=== PATIENT | male | born 1980 | race Caucasian/White ===

== ENCOUNTER 2016-12-04 07:29 | Observation (INO) | payer MEDICARE, OTHER ==
[2016-12-04] VITALS (7 sets, daily range): BP systolic 126–175; BP diastolic 74–94
[~2016-12-04] VITALS: Ht 185.4 cm; Wt 109.5 kg
[~2016-12-04 07:29] MED LIST: ASPI325T8 PO; ATOR20TA PO; GLIM4TAB PO; INSU100I17 SQ; INSU100I27 SQ; IV NORMAL SALINE 1000ML BAG 1,000 ML IV SCH; LIDOCAINE 1% 1 ML SYRINGE. ID PRN; LISI-334 PO; METF-620 PO; METO10TA81 PO; MORPHINE SULFATE 2 MG/ML DISP.SYRIN. IV PRN; ONDANSETRON PF 4 MG/2 ML VIAL. IV PRN; PROCHLORPERAZINE 10 MG/2 ML VIAL. IV PRN; RANI150T2 PO; fentaNYL PF VIAL 100 MCG/2 ML VIAL IV PRN
[2016-12-04] MEDS ORDERED: HEPARIN SODIUM 5,000 UNIT in IV NORMAL SALINE 500ML BAG 500 ML IRR ONE ×2 (08:00→15:00)
[2016-12-04] MEDS ORDERED: SURGICEL FIBRILLAR 1X2 EACH. ONE ×3 (08:04→14:38)
[2016-12-04] MEDS ORDERED: PROTAMINE 50 MG/5 ML VIAL. IV ONE ×2 (08:04→14:38)
[2016-12-04] MEDS ORDERED: POVIDONE-IODINE 10% TOPICAL OINTMENT 28GM TUBE. TP ONE (08:04)
[2016-12-04] MEDS ORDERED: THROMBIN TOPICAL 5,000 UNIT VIAL. ONE ×2 (08:04→14:37)
[2016-12-04] MEDS ORDERED: PAPAVERINE 60 MG/2 ML VIAL FOR OR ONLY. ONE ×2 (08:04→14:37)
[2016-12-04] MEDS ORDERED: LIDOCAINE 1% 20 ML VIAL. ONE ×2 (08:04→14:37)
[2016-12-04] MEDS ORDERED: FAMOTIDINE 20 MG/2 ML VIAL ONE (08:33)
[2016-12-04] MEDS ORDERED: LIDOCAINE 2% PF Vial for OR 5 ML VIAL. ONE ×2 (08:33→16:27)
[2016-12-04] MEDS ORDERED: PROPOFOL 20 ML IV ONE ×2 (08:33→16:26)
[2016-12-04] MEDS ORDERED: ONDANSETRON PF 4 MG/2 ML VIAL. ONE ×2 (08:33→16:27)
[2016-12-04] MEDS ORDERED: MIDAZOLAM HCL/PF 2 MG/2 ML VIAL. ONE ×3 (08:35→15:42)
[2016-12-04] MEDS ORDERED: fentaNYL PF VIAL 100 MCG/2 ML VIAL ONE ×2 (08:35→15:43)
[2016-12-04] MEDS ORDERED: CITRIC ACID/SODIUM CITRATE 30 ML SOLUTION. PO ONE (08:45)
[2016-12-04 09:05] LABS: CALCIUM 8.4 mg/dL (8.5-10.1); CREATININE 8.9 mg/dL (0.7-1.3); GFR 6.7; POTASSIUM 4.1 mmol/L (3.5-5.1)
[2016-12-04] MEDS ORDERED: PROPOFOL 50 ML IV ONE (09:13)
[2016-12-04 09:16] LABS: BASO # 0.1 x10^3/uL (0.0-0.2); BASO % 1 % (0-3); EOS % 4 % (0-3); HEMATOCRIT 29.1 % (39.0-53.0); LYMPH # 1.3 x10^3/uL (1.0-4.8); LYMPH % 17 % (24-48); MEAN CORPUSCULAR HEMOGLOBIN 28 pg (25-35); MEAN CORPUSCULAR HGB CONC 34 g/dL (31-37); MEAN CORPUSCULAR VOLUME 81 fL (79-100); MONO % 7 % (0-9); NEUT % 71 % (31-73); PLATELET COUNT 232 x10^3/uL (140-400); RED BLOOD COUNT 3.59 x10^6/uL (4.30-5.70); RED CELL DISTRIBUTION WIDTH 15.3 % (11.5-14.5); WHITE BLOOD COUNT 7.7 x10^3/uL (4.0-11.0)
[2016-12-04 09:24] LABS: INR 0.9 (0.8-1.1); PROTHROMBIN TIME PATIENT 11.9 SEC (11.7-14.0)
[2016-12-04] MEDS ORDERED: HEPARIN for IV BOLUS 10,000 UNIT/10 ML VIAL. ONE (09:57)
[2016-12-04] MEDS: fentaNYL PF VIAL 100 MCG/2 ML VIAL IV PRN ×6 (11:13→17:05)
--- NOTE | 2016-12-04 11:15 | PDOC4 ---
Operative Note Operative Note Op note dictated Dx: ESRD DM, type I Op: left brachiocephalic av fistula Surg: Elvia local mac to rr in [facility] cond. AYESHA DOBSON II, MD Dec 04, 2016 11:15
[2016-12-04] MEDS ORDERED: HYDR-971 PO (12:12)
--- NOTE | 2016-12-04 12:14 | EKG ---
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
[2016-12-04] MEDS ORDERED: HYDROcodone/APAP 5/325MG 1 TAB TABLET PO ONE (12:15)
[2016-12-04] MEDS ORDERED: SEVOFLURANE 61 TO 120 MINUTES. IH ONE (16:46)
--- NOTE | 2016-12-04 17:05 | PDOC4 ---
Operative Note Operative Note December 04, 2016 Preoperative diagnosis: End-stage renal disease on hemodialysis Postoperative diagnosis: Same Procedure: Reoperative exploration of the left upper extremity for hemorrhage following AV fistula creation with ligation of large bleeding side branch Surgeon: Shaneka Sweet, AGA LOVETT RPVI Specimens: None Complications: None Preoperative indications: Patient is a pleasant 36-year-old male who underwent left upper extremity AV fistula creation by my partner. [place] home [place] [facility] [place]. Patient was transferred back for operative exploration. I met the patient in the preoperative area and obtained a surgical consent for the procedure. He understood all risks benefits and alternatives of procedure prior to proceeding. Operative procedure: Patient was brought to the operative suite placed supine position after establishing adequate sedation patient's left upper extremity was prepped and draped in sterile fashion. Next a timeout procedure was performed. It was confirmed that the patient did receive appropriate perioperative antibiotics and that the correct operative site was marked and draped. Next the suture was removed from his existing incision and the subcutaneous space was opened overlying the fistula. There was profuse pulsatile bleeding upon entry into the space. I was able to gain control of the arterial inflow. Next I identified a venous tributary side branch from the harvested cephalic vein which was bleeding profusely. The silk tie that was in place was seen in the surgical field and had completely slipped off of the vessel. Using a 6-0 Prolene suture the venous tributary was ligated in a running baseball stitch fashion. Care was taken not to narrow the venous conduit. Next I inspected the anastomosis after restoring blood flow. The anastomosis was intact with no evidence of bleeding from the arterial source. The hematoma was evacuated from this space once the bleeding was controlled. Next the wound was copiously irrigated with antibiotic impregnated solution and suctioned dry. I inspected the surgical wound at this time for hemostasis and we did confirm complete hemostasis of the surgical field. Next the subcutaneous tissue was closed using interrupted 3-0 Vicryl suture followed by 4-0 Monocryl in a subcuticular fashion. Dermabond was next applied to the skin incision and a sterile dressing was placed. The patient had a palpable thrill throughout the cephalic vein in the upper arm, and a palpable pulse at the level of the wrist in the radial artery. The patient tolerated procedure well and was transferred to the postanesthesia care unit in stable condition. Shaneka Sweet DO, FACS, RPVI [employer] Officer of Vascular [employer] [facility] SHANEKA SWEET DO Dec 04, 2016 17:05
[2016-12-04] MEDS: HYDROmorphone 2 MG/ML VIAL IV PRN ×2 (18:04→18:28)
--- NOTE | 2016-12-04 19:23 | PDOC1 ---
History and Physical Identification/Chief Complaint Chief Complaint 12/04/2016 Chief complaint: Fistula hemorrhage/bleeding Problems: History of Present Illness History of Present Illness A 36-year-old male who underwent left upper extremity AV fistula creation by vascular surgery. Patient was discharged home and then presented to [facility] [place], [place] with bleeding from his left upper extremity. Patient was transferred back for operative exploration.Reoperative exploration of the left upper extremity for hemorrhage following AV fistula creation with ligation of large bleeding side branch. Post surgery I was asked to admit the patient for observation overnight. Patient denies any symptoms however he does not of vomiting denies any fever or chills. Past Medical History Past Medical History Hypertension diabetes and end-stage renal disease Cardiovascular: HTN Past Surgical History Past Surgical History Fistula repair Family History Family History Hypertension Social History Smoke: No ALCOHOL: none Drugs: None Current Medications Current Medications Current Medications Medications (Trade) Dose Ordered Sig/Damien Start Time Stop Time Status Last Admin Dose Admin Acetaminophen/ Hydrocodone Bitart (Lortab 5/325) 2 tab 1X ONCE 12/04/16 12:15 12/04/16 12:16 DC 12/04/16 12:21 2 TAB Cefazolin Sodium 1 gm/Sodium Chloride 500 ml @ 500 mls/hr 1X PERIOP ONCE 12/04/16 15:00 12/04/16 15:59 DC 12/04/16 15:59 Cefazolin Sodium/ Dextrose 50 ml @ 100 mls/hr 1X PREOP PRN 12/04/16 15:33 12/05/16 15:32 Cellulose 1 each STK-MED ONCE 12/04/16 14:38 12/04/16 14:39 DC Citric Acid/ Sodium Citrate (Bicitra) 30 ml 1X ONCE 12/04/16 08:45 12/04/16 08:46 DC 12/04/16 08:54 30 ML Famotidine (Pepcid) 20 mg STK-MED ONCE 12/04/16 08:33 12/04/16 08:34 DC Fentanyl Citrate (Fentanyl 2ml Vial) 100 mcg STK-MED ONCE 12/04/16 15:43 12/04/16 15:44 DC Heparin Sodium (Porcine) (Heparin Sodium) 10,000 unit STK-MED ONCE 12/04/16 09:57 12/04/16 09:58 DC Heparin Sodium (Porcine) 5000 unit/Sodium Chloride 505 ml @ 505 mls/hr 1X PERIOP ONCE 12/04/16 15:00 12/04/16 15:59 DC 12/04/16 15:59 Hydromorphone HCl (Dilaudid) 0.5 mg PRN Q10MIN PRN 12/04/16 07:00 12/05/16 06:59 12/04/16 18:28 0.5 MG Lidocaine HCl (Lidocaine Pf 2% Vial) 5 ml STK-MED ONCE 12/04/16 16:27 12/04/16 16:28 DC Midazolam HCl (Versed) 2 mg STK-MED ONCE 12/04/16 15:42 12/04/16 15:43 DC Morphine Sulfate 1 mg PRN Q10MIN PRN 12/04/16 07:00 12/05/16 06:59 Ondansetron HCl (Zofran) 4 mg STK-MED ONCE 12/04/16 16:27 12/04/16 16:28 DC Papaverine HCl 60 mg STK-MED ONCE 12/04/16 14:37 12/04/16 14:38 DC Povidone Iodine ( Betadine Oint) 28 daljit STK-MED ONCE 12/04/16 08:04 12/04/16 08:05 DC Prochlorperazine Edisylate (Compazine) 5 mg PACU PRN PRN 12/04/16 07:00 12/05/16 06:59 12/04/16 17:15 5 MG Propofol 20 ml @ As Directed STK-MED ONCE 12/04/16 16:26 12/04/16 16:27 DC Protamine Sulfate 50 mg STK-MED ONCE 12/04/16 14:38 12/04/16 14:39 DC Sevoflurane (Ultane) 60 ml STK-MED ONCE 12/04/16 16:46 12/04/16 16:47 DC Sodium Chloride 1,000 ml @ 0 mls/hr Q0M 12/04/16 07:00 12/04/16 08:55 30 MLS/HR Thrombin 5,000 unit STK-MED ONCE 12/04/16 14:37 12/04/16 14:38 DC Allergies Allergies Allergies Coded Allergies Type Severity Reaction Last Updated Verified No Known Drug Allergies 02/01/16 No ROS Review of System CONSTITUTIONAL: No fever or chills EYES: No recent changes SKIN: No rash or itching CARDIOVASCULAR: No chest pain, syncope, palpitations, or edema RESPIRATORY: No SOB or cough GASTROINTESTINAL: nausea, vomiting or NO abdominal pain NEUROLOGICAL: No headaches or weakness ENDOCRINE: No cold or heat intolerance GENITOURINARY: No urgency or frequency of urination MUSCULOSKELETAL: No back pain or joint pain LYMPHATICS: No enlarged lymph nodes PSYCHIATRIC: No anxiety or depression Physical Exam Physical Exam GEN.: No apparent distress. Alert and oriented. HEENT: Head is normocephalic, atraumatic NECK: Supple. LUNGS: Clear to auscultation. HEART: RRR, S1, S2 present. Peripheral pulses intact ABDOMEN: Soft, nontender. Positive bowel sounds. EXTREMITIES: Without any cyanosis. NEUROLOGIC: Normal speech, normal tone PSYCHIATRIC: Normal affect, normal mood. SKIN: Left upper extremity bandages intact no bleeding seen Vitals Vitals Vital Signs Date Time Temp Pulse Resp B/P (MAP) Pulse Ox O2 Delivery O2 Flow Rate FiO2 12/04/16 18:28 15 98 Room Air 1.0 12/04/16 17:33 97.5 69 168/87 97.5 Labs Labs Laboratory Tests Test 12/04/16 08:25 12/04/16 12:03 12/04/16 15:26 12/04/16 16:52 White Blood Count 7.7 x10^3/uL (4.0-11.0) Red Blood Count 3.59 x10^6/uL (4.30-5.70) Hemoglobin 10.0 g/dL (13.0-17.5) Hematocrit 29.1 % (39.0-53.0) Mean Corpuscular Volume 81 fL (79-100) Mean Corpuscular Hemoglobin 28 pg (25-35) Mean Corpuscular Hemoglobin Concent 34 g/dL (31-37) Red Cell Distribution Width 15.3 % (11.5-14.5) Platelet Count 232 x10^3/uL (140-400) Neutrophils (%) (Auto) 71 % (31-73) Lymphocytes (%) (Auto) 17 % (24-48) Monocytes (%) (Auto) 7 % (0-9) Eosinophils (%) (Auto) 4 % (0-3) Basophils (%) (Auto) 1 % (0-3) Neutrophils # (Auto) 5.4 x10^3uL (1.8-7.7) Lymphocytes # (Auto) 1.3 x10^3/uL (1.0-4.8) Monocytes # (Auto) 0.6 x10^3/uL (0.0-1.1) Eosinophils # (Auto) 0.3 x10^3/uL (0.0-0.7) Basophils # (Auto) 0.1 x10^3/uL (0.0-0.2) Prothrombin Time 11.9 SEC (11.7-14.0) Prothromb Time International Ratio 0.9 (0.8-1.1) Activated Partial Thromboplast Time 28 SEC (24-38) Sodium Level 138 mmol/L (136-145) Potassium Level 4.1 mmol/L (3.5-5.1) Chloride Level 98 mmol/L (98-107) Carbon Dioxide Level 28 mmol/L (21-32) Anion Gap 12 (6-14) Blood Urea Nitrogen 52 mg/dL (8-26) Creatinine 8.9 mg/dL (0.7-1.3) Estimated GFR (Cockcroft-Gault) 6.7 Glucose Level 168 mg/dL (70-99) Calcium Level 8.4 mg/dL (8.5-10.1) Glucose (Fingerstick) 119 mg/dL (70-99) 151 mg/dL (70-99) 139 mg/dL (70-99) Laboratory Tests Test 12/04/16 08:25 12/04/16 12:03 12/04/16 15:26 12/04/16 16:52 White Blood Count 7.7 x10^3/uL (4.0-11.0) Red Blood Count 3.59 x10^6/uL (4.30-5.70) Hemoglobin 10.0 g/dL (13.0-17.5) Hematocrit 29.1 % (39.0-53.0) Mean Corpuscular Volume 81 fL (79-100) Mean Corpuscular Hemoglobin 28 pg (25-35) Mean Corpuscular Hemoglobin Concent 34 g/dL (31-37) Red Cell Distribution Width 15.3 % (11.5-14.5) Platelet Count 232 x10^3/uL (140-400) Neutrophils (%) (Auto) 71 % (31-73) Lymphocytes (%) (Auto) 17 % (24-48) Monocytes (%) (Auto) 7 % (0-9) Eosinophils (%) (Auto) 4 % (0-3) Basophils (%) (Auto) 1 % (0-3) Neutrophils # (Auto) 5.4 x10^3uL (1.8-7.7) Lymphocytes # (Auto) 1.3 x10^3/uL (1.0-4.8) Monocytes # (Auto) 0.6 x10^3/uL (0.0-1.1) Eosinophils # (Auto) 0.3 x10^3/uL (0.0-0.7) Basophils # (Auto) 0.1 x10^3/uL (0.0-0.2) Prothrombin Time 11.9 SEC (11.7-14.0) Prothromb Time International Ratio 0.9 (0.8-1.1) Activated Partial Thromboplast Time 28 SEC (24-38) Sodium Level 138 mmol/L (136-145) Potassium Level 4.1 mmol/L (3.5-5.1) Chloride Level 98 mmol/L (98-107) Carbon Dioxide Level 28 mmol/L (21-32) Anion Gap 12 (6-14) Blood Urea Nitrogen 52 mg/dL (8-26) Creatinine 8.9 mg/dL (0.7-1.3) Estimated GFR (Cockcroft-Gault) 6.7 Glucose Level 168 mg/dL (70-99) Calcium Level 8.4 mg/dL (8.5-10.1) Glucose (Fingerstick) 119 mg/dL (70-99) 151 mg/dL (70-99) 139 mg/dL (70-99) VTE Prophylaxis Ordered VTE Prophylaxis Devices: Yes VTE Pharmacological Prophylaxi: Contraindicated Assessment/Plan Assessment/Plan Reoperative exploration of the left upper extremity for hemorrhage following AV fistula creation with ligation of large bleeding side branch End-stage renal disease on hemodialysis diabetes mellitus on insulin dependency Nausea and vomiting unclear etiology Plan Case discussed with vascular surgery requested me to admit the patient for observation, will continue to monitor his hemoglobin and vitals. Consult nephrology for hemodialysis patient is scheduled for him and assist tomorrow. Hold nighttime Levemir and continue meal dose insulin with sliding scale insulin. Next IV Zofran for nausea and vomiting. Mild hyperhydration monitor CBC and BMP. Labs and old records reviewed. PORSCHE CARBALLO MD Dec 04, 2016 19:23
[2016-12-04] MEDS ORDERED: ALBUTEROL SULFATE 2.5 MG/3 ML NEBU. NEB PRN (19:30)
[2016-12-04] MEDS ORDERED: ACETAMINOPHEN 325 MG TABLET. PO PRN (19:30)
[2016-12-04] MEDS ORDERED: HYDROcodone/APAP 5/325MG 1 TAB TABLET PO PRN (19:30)
[2016-12-04] MEDS ORDERED: ONDANSETRON PF 4 MG/2 ML VIAL. IV PRN (19:30)
[2016-12-04] MEDS: HYDROcodone/APAP 5/325MG 1 TAB TABLET PO SCH (20:54)
[2016-12-04] MEDS: hydrALAZINE 20 MG/ML VIAL. IVP PRN (20:57)
[2016-12-04] MEDS ORDERED: ATORVASTATIN CALCIUM 20 MG TABLET PO SCH (21:00)
[2016-12-04] MEDS ORDERED: fentaNYL PF VIAL 100 MCG/2 ML VIAL IV ONE (21:30)
[2016-12-05] MEDS: HYDROcodone/APAP 5/325MG 1 TAB TABLET PO SCH ×5 (00:09→16:35)
[2016-12-05] MEDS: hydrALAZINE 20 MG/ML VIAL. IVP PRN (01:43)
[2016-12-05 01:48] VITALS: BP 200/110
[2016-12-05 01:49] VITALS: BP_SYST 159; BP_SYST 177; BP_DIAS 87; BP_DIAS 90
[2016-12-05 03:01] VITALS: BP 155/74
[2016-12-05 05:03] LABS: BASO % 1 % (0-3); EOS % 4 % (0-3); HEMATOCRIT 21.6 % (39.0-53.0); HEMOGLOBIN 7.4 g/dL (13.0-17.5); LYMPH # 1.3 x10^3/uL (1.0-4.8); LYMPH % 16 % (24-48); MEAN CORPUSCULAR HEMOGLOBIN 28 pg (25-35); MEAN CORPUSCULAR HGB CONC 34 g/dL (31-37); MEAN CORPUSCULAR VOLUME 82 fL (79-100); MONO % 6 % (0-9); NEUT % 73 % (31-73); PLATELET COUNT 216 x10^3/uL (140-400); RED BLOOD COUNT 2.63 x10^6/uL (4.30-5.70); RED CELL DISTRIBUTION WIDTH 15.5 % (11.5-14.5); WHITE BLOOD COUNT 7.9 x10^3/uL (4.0-11.0)
[2016-12-05 05:19] LABS: CALCIUM 7.5 mg/dL (8.5-10.1); CREATININE 9.9 mg/dL (0.7-1.3); POTASSIUM 4.7 mmol/L (3.5-5.1)
[2016-12-05 07:00] VITALS: BP 138/72
[2016-12-05] MEDS: INSULIN ASPART 300 UNITS/3 ML INSULN.PEN SQ SCH ×3 (07:30→16:48)
[2016-12-05] MEDS ORDERED: POLYETHYLENE GLYCOL 3350 17 GM PACKET. PO PRN (08:00)
[2016-12-05] MEDS ORDERED: LISINOPRIL 20 MG TABLET PO SCH (09:00)
[2016-12-05] MEDS ORDERED: ASPIRIN 325 MG TABLET PO SCH (09:00)
[2016-12-05 11:00] VITALS: BP 142/80
--- NOTE | 2016-12-05 11:48 | PDOC ---
PROGRESS NOTES Chief Complaint Chief Complaint 1. Bleeding/hemorrhage at new AV fistula site 2. HTN 3. ESRD 4. Anemia 5. Hyperglycemia 6. Hypocalcemia History of Present Illness History of Present Illness pt is lying comfortably in bed this morning, he has TTP in R arm which continues to be swollen postop, he denies any complaints and states his pain is well managed, he would like to start miralax for his constipation Vitals Vitals Vital Signs Date Time Temp Pulse Resp B/P (MAP) Pulse Ox O2 Delivery O2 Flow Rate FiO2 12/05/16 11:00 98.4 80 16 142/80 (100) 96 Room Air 98.4 12/05/16 06:15 2.0 Physical Exam General: Alert, Oriented X3, Cooperative, No acute distress Heart: Regular rate, No murmurs Lungs: Clear Abdomen: Normal bowel sounds, Soft, No tenderness Extremities: No clubbing, No cyanosis, Other (Edema in RUE) Skin: No rashes, No breakdown Labs LABS Laboratory Tests Test 12/04/16 12:03 12/04/16 15:26 12/04/16 16:52 12/04/16 20:22 Glucose (Fingerstick) 119 mg/dL (70-99) 151 mg/dL (70-99) 139 mg/dL (70-99) 151 mg/dL (70-99) Test 12/05/16 01:30 12/05/16 04:35 12/05/16 07:36 Glucose (Fingerstick) 117 mg/dL (70-99) 125 mg/dL (70-99) White Blood Count 7.9 x10^3/uL (4.0-11.0) Red Blood Count 2.63 x10^6/uL (4.30-5.70) Hemoglobin 7.4 g/dL (13.0-17.5) Hematocrit 21.6 % (39.0-53.0) Mean Corpuscular Volume 82 fL (79-100) Mean Corpuscular Hemoglobin 28 pg (25-35) Mean Corpuscular Hemoglobin Concent 34 g/dL (31-37) Red Cell Distribution Width 15.5 % (11.5-14.5) Platelet Count 216 x10^3/uL (140-400) Neutrophils (%) (Auto) 73 % (31-73) Lymphocytes (%) (Auto) 16 % (24-48) Monocytes (%) (Auto) 6 % (0-9) Eosinophils (%) (Auto) 4 % (0-3) Basophils (%) (Auto) 1 % (0-3) Neutrophils # (Auto) 5.8 x10^3uL (1.8-7.7) Lymphocytes # (Auto) 1.3 x10^3/uL (1.0-4.8) Monocytes # (Auto) 0.5 x10^3/uL (0.0-1.1) Eosinophils # (Auto) 0.3 x10^3/uL (0.0-0.7) Basophils # (Auto) 0.0 x10^3/uL (0.0-0.2) Sodium Level 140 mmol/L (136-145) Potassium Level 4.7 mmol/L (3.5-5.1) Chloride Level 104 mmol/L (98-107) Carbon Dioxide Level 26 mmol/L (21-32) Anion Gap 10 (6-14) Blood Urea Nitrogen 58 mg/dL (8-26) Creatinine 9.9 mg/dL (0.7-1.3) Estimated GFR (Cockcroft-Gault) 6.0 Glucose Level 126 mg/dL (70-99) Calcium Level 7.5 mg/dL (8.5-10.1) Review of Systems Review of Systems denies nausea, vomiting, or NAIDU Assessment and Plan Assessmemt and Plan Assessment 1. Bleeding/hemorrhage at new AV fistula site 2. HTN 3. ESRD 4. Anemia 5. Hyperglycemia 6. Hypocalcemia Plan 1. Calcium supplementation in IVF 2. Miralax for constipation 3. Pain management with lortab and tylenol 4. Appreciate surgery subspecialty input 5. Continue home meds 6. Discussed plan of care with nursing 7. PT/OT 8. Recheck CBC and BMP tomorrow 9. Zofran prn for nausea Problems: Comment Review of Relevant I have reviewed the following items ujan a (where applicable) has been applied. Labs Laboratory Tests Test 12/04/16 08:25 12/04/16 12:03 12/04/16 15:26 12/04/16 16:52 White Blood Count 7.7 x10^3/uL (4.0-11.0) Red Blood Count 3.59 x10^6/uL (4.30-5.70) Hemoglobin 10.0 g/dL (13.0-17.5) Hematocrit 29.1 % (39.0-53.0) Mean Corpuscular Volume 81 fL (79-100) Mean Corpuscular Hemoglobin 28 pg (25-35) Mean Corpuscular Hemoglobin Concent 34 g/dL (31-37) Red Cell Distribution Width 15.3 % (11.5-14.5) Platelet Count 232 x10^3/uL (140-400) Neutrophils (%) (Auto) 71 % (31-73) Lymphocytes (%) (Auto) 17 % (24-48) Monocytes (%) (Auto) 7 % (0-9) Eosinophils (%) (Auto) 4 % (0-3) Basophils (%) (Auto) 1 % (0-3) Neutrophils # (Auto) 5.4 x10^3uL (1.8-7.7) Lymphocytes # (Auto) 1.3 x10^3/uL (1.0-4.8) Monocytes # (Auto) 0.6 x10^3/uL (0.0-1.1) Eosinophils # (Auto) 0.3 x10^3/uL (0.0-0.7) Basophils # (Auto) 0.1 x10^3/uL (0.0-0.2) Prothrombin Time 11.9 SEC (11.7-14.0) Prothromb Time International Ratio 0.9 (0.8-1.1) Activated Partial Thromboplast Time 28 SEC (24-38) Sodium Level 138 mmol/L (136-145) Potassium Level 4.1 mmol/L (3.5-5.1) Chloride Level 98 mmol/L (98-107) Carbon Dioxide Level 28 mmol/L (21-32) Anion Gap 12 (6-14) Blood Urea Nitrogen 52 mg/dL (8-26) Creatinine 8.9 mg/dL (0.7-1.3) Estimated GFR (Cockcroft-Gault) 6.7 Glucose Level 168 mg/dL (70-99) Calcium Level 8.4 mg/dL (8.5-10.1) Glucose (Fingerstick) 119 mg/dL (70-99) 151 mg/dL (70-99) 139 mg/dL (70-99) Test 12/04/16 20:22 12/05/16 01:30 12/05/16 04:35 12/05/16 07:36 Glucose (Fingerstick) 151 mg/dL (70-99) 117 mg/dL (70-99) 125 mg/dL (70-99) White Blood Count 7.9 x10^3/uL (4.0-11.0) Red Blood Count 2.63 x10^6/uL (4.30-5.70) Hemoglobin 7.4 g/dL (13.0-17.5) Hematocrit 21.6 % (39.0-53.0) Mean Corpuscular Volume 82 fL (79-100) Mean Corpuscular Hemoglobin 28 pg (25-35) Mean Corpuscular Hemoglobin Concent 34 g/dL (31-37) Red Cell Distribution Width 15.5 % (11.5-14.5) Platelet Count 216 x10^3/uL (140-400) Neutrophils (%) (Auto) 73 % (31-73) Lymphocytes (%) (Auto) 16 % (24-48) Monocytes (%) (Auto) 6 % (0-9) Eosinophils (%) (Auto) 4 % (0-3) Basophils (%) (Auto) 1 % (0-3) Neutrophils # (Auto) 5.8 x10^3uL (1.8-7.7) Lymphocytes # (Auto) 1.3 x10^3/uL (1.0-4.8) Monocytes # (Auto) 0.5 x10^3/uL (0.0-1.1) Eosinophils # (Auto) 0.3 x10^3/uL (0.0-0.7) Basophils # (Auto) 0.0 x10^3/uL (0.0-0.2) Sodium Level 140 mmol/L (136-145) Potassium Level 4.7 mmol/L (3.5-5.1) Chloride Level 104 mmol/L (98-107) Carbon Dioxide Level 26 mmol/L (21-32) Anion Gap 10 (6-14) Blood Urea Nitrogen 58 mg/dL (8-26) Creatinine 9.9 mg/dL (0.7-1.3) Estimated GFR (Cockcroft-Gault) 6.0 Glucose Level 126 mg/dL (70-99) Calcium Level 7.5 mg/dL (8.5-10.1) Laboratory Tests Test 12/04/16 12:03 12/04/16 15:26 12/04/16 16:52 12/04/16 20:22 Glucose (Fingerstick) 119 mg/dL (70-99) 151 mg/dL (70-99) 139 mg/dL (70-99) 151 mg/dL (70-99) Test 12/05/16 01:30 12/05/16 04:35 12/05/16 07:36 Glucose (Fingerstick) 117 mg/dL (70-99) 125 mg/dL (70-99) White Blood Count 7.9 x10^3/uL (4.0-11.0) Red Blood Count 2.63 x10^6/uL (4.30-5.70) Hemoglobin 7.4 g/dL (13.0-17.5) Hematocrit 21.6 % (39.0-53.0) Mean Corpuscular Volume 82 fL (79-100) Mean Corpuscular Hemoglobin 28 pg (25-35) Mean Corpuscular Hemoglobin Concent 34 g/dL (31-37) Red Cell Distribution Width 15.5 % (11.5-14.5) Platelet Count 216 x10^3/uL (140-400) Neutrophils (%) (Auto) 73 % (31-73) Lymphocytes (%) (Auto) 16 % (24-48) Monocytes (%) (Auto) 6 % (0-9) Eosinophils (%) (Auto) 4 % (0-3) Basophils (%) (Auto) 1 % (0-3) Neutrophils # (Auto) 5.8 x10^3uL (1.8-7.7) Lymphocytes # (Auto) 1.3 x10^3/uL (1.0-4.8) Monocytes # (Auto) 0.5 x10^3/uL (0.0-1.1) Eosinophils # (Auto) 0.3 x10^3/uL (0.0-0.7) Basophils # (Auto) 0.0 x10^3/uL (0.0-0.2) Sodium Level 140 mmol/L (136-145) Potassium Level 4.7 mmol/L (3.5-5.1) Chloride Level 104 mmol/L (98-107) Carbon Dioxide Level 26 mmol/L (21-32) Anion Gap 10 (6-14) Blood Urea Nitrogen 58 mg/dL (8-26) Creatinine 9.9 mg/dL (0.7-1.3) Estimated GFR (Cockcroft-Gault) 6.0 Glucose Level 126 mg/dL (70-99) Calcium Level 7.5 mg/dL (8.5-10.1) Medications Current Medications Heparin Sodium (Porcine) 5000 unit/Sodium Chloride 505 ml @ 505 mls/hr 1X PERIOP ONCE IRR Last administered on 12/04/16 10:32; Start 12/04/16 at 08:00; Stop 12/04/16 at 08:59; Status DC Cefazolin Sodium 1 gm/Sodium Chloride 500 ml @ 500 mls/hr 1X PERIOP ONCE IRR Last administered on 12/04/16 10:32; Start 12/04/16 at 08:00; Stop 12/04/16 at 08: 59; Status DC Ondansetron HCl (Zofran) 4 mg PRN Q6HRS PRN IV NAUSEA/VOMITING Last administered on 12/05/16 01:36; Start 12/04/16 at 07:00; Stop 12/05/16 at 06:59; Status DC Fentanyl Citrate (Fentanyl 2ml Vial) 25 mcg PRN Q5MIN PRN IV MILD PAIN; Start 12/04/16 at 07:00; Stop 12/05/16 at 06:59; Status DC Fentanyl Citrate (Fentanyl 2ml Vial) 50 mcg PRN Q5MIN PRN IV MODERATE PAIN Last administered on 12/04/16 17:05; Start 12/04/16 at 07:00; Stop 12/05/16 at 06: 59; Status DC Morphine Sulfate 1 mg PRN Q10MIN PRN IV SEVERE PAIN; Start 12/04/16 at 07:00; Stop 12/05/16 at 06:59; Status DC Lidocaine HCl 2 ml PRN 1X PRN ID PRIOR TO IV START; Start 12/04/16 at 07:00; Stop 12/05/16 at 06:59; Status DC Hydromorphone HCl (Dilaudid) 0.5 mg PRN Q10MIN PRN IV SEV PAIN, Second choice Last administered on 12/04/16 18:28; Start 12/04/16 at 07:00; Stop 12/05/16 at 06: 59; Status DC Prochlorperazine Edisylate (Compazine) 5 mg PACU PRN PRN IV NAUSEA, MRX1 Last administered on 12/04/16 17:15; Start 12/04/16 at 07:00; Stop 12/05/16 at 06:59; Status DC Sodium Chloride 1,000 ml @ 0 mls/hr Q0M IV Last administered on 12/04/16 08:55 ; Start 12/04/16 at 07:00 Cefazolin Sodium/ Dextrose 50 ml @ 100 mls/hr 1X PREOP PRN IV PRIOR TO PROCEDURE Last administered on 12/04/16 15:39; Start 12/04/16 at 06:00; Stop 12/04 at 18:00; Status DC Cellulose 1 each STK-MED ONCE .ROUTE ; Start 12/04/16 at 08:04; Stop 12/04/16 at 08:05; Status DC Thrombin 5,000 unit STK-MED ONCE .ROUTE ; Start 12/04/16 at 08:04; Stop 12/04/16 at 08:05; Status DC Povidone Iodine ( Betadine Oint) 28 daljit STK-MED ONCE TP ; Start 12/04/16 at 08:04 ; Stop 12/04/16 at 08:05; Status DC Papaverine HCl 60 mg STK-MED ONCE .ROUTE ; Start 12/04/16 at 08:04; Stop 12/04/16 at 08:05; Status DC Protamine Sulfate 50 mg STK-MED ONCE IV ; Start 12/04/16 at 08:04; Stop 12/04/16 at 08:05; Status DC Lidocaine HCl 20 ml STK-MED ONCE .ROUTE Last administered on 12/04/16 10:02; Start 12/04/16 at 08:04; Stop 12/04/16 at 08:05; Status DC Citric Acid/ Sodium Citrate (Bicitra) 30 ml 1X ONCE PO Last administered on 08:54; Start 12/04/16 at 08:45; Stop 12/04/16 at 08:46; Status DC Lidocaine HCl (Lidocaine Pf 2% Vial) 5 ml STK-MED ONCE .ROUTE ; Start 12/04/16 at 08:33; Stop 12/04/16 at 08:34; Status DC Propofol 20 ml @ As Directed STK-MED ONCE IV ; Start 12/04/16 at 08:33; Stop 12/04 at 08:34; Status DC Ondansetron HCl (Zofran) 4 mg STK-MED ONCE .ROUTE ; Start 12/04/16 at 08:33; Stop 12/04/16 at 08:34; Status DC Famotidine (Pepcid) 20 mg STK-MED ONCE .ROUTE ; Start 12/04/16 at 08:33; Stop 12/04/16 at 08:34; Status DC Midazolam HCl (Versed) 2 mg STK-MED ONCE .ROUTE ; Start 12/04/16 at 08:35; Stop 12/04/16 at 08:36; Status DC Fentanyl Citrate (Fentanyl 2ml Vial) 100 mcg STK-MED ONCE .ROUTE ; Start at 08:35; Stop 12/04/16 at 08:36; Status DC Propofol 50 ml @ As Directed STK-MED ONCE IV ; Start 12/04/16 at 09:13; Stop 12/04 at 09:14; Status DC Heparin Sodium (Porcine) (Heparin Sodium) 10,000 unit STK-MED ONCE .ROUTE ; Start 12/04/16 at 09:57; Stop 12/04/16 at 09:58; Status DC Midazolam HCl (Versed) 2 mg STK-MED ONCE .ROUTE ; Start 12/04/16 at 10:23; Stop 12/04/16 at 10:24; Status DC Acetaminophen/ Hydrocodone Bitart (Lortab 5/325) 2 tab 1X ONCE PO Last administered on 12/04/16 12:21; Start 12/04/16 at 12:15; Stop 12/04/16 at 12:16; Status DC Cefazolin Sodium 1 gm/Sodium Chloride 500 ml @ 500 mls/hr 1X PERIOP ONCE IRR Last administered on 12/04/16 15:59; Start 12/04/16 at 15:00; Stop 12/04/16 at 15: 59; Status DC Heparin Sodium (Porcine) 5000 unit/Sodium Chloride 505 ml @ 505 mls/hr 1X PERIOP ONCE IRR Last administered on 12/04/16t 15:59; Start 12/04/16 at 15:00; Stop 12/04/16 at 15:59; Status DC Cellulose 1 each STK-MED ONCE .ROUTE ; Start 12/04/16 at 14:37; Stop 12/04/16 at 14:38; Status DC Thrombin 5,000 unit STK-MED ONCE .ROUTE ; Start 12/04/16 at 14:37; Stop 12/04/16 at 14:38; Status DC Papaverine HCl 60 mg STK-MED ONCE .ROUTE ; Start 12/04/16 at 14:37; Stop 12/04/16 at 14:38; Status DC Lidocaine HCl 20 ml STK-MED ONCE .ROUTE Last administered on 12/04/16t 15:59; Start 12/04/16 at 14:37; Stop 12/04/16 at 14:38; Status DC Cellulose 1 each STK-MED ONCE .ROUTE ; Start 12/04/16 at 14:38; Stop 12/04/16 at 14:39; Status DC Protamine Sulfate 50 mg STK-MED ONCE IV ; Start 12/04/16 at 14:38; Stop 12/04/16 at 14:39; Status DC Cefazolin Sodium/ Dextrose 50 ml @ 100 mls/hr 1X PREOP PRN IV PRE OP DOSE; Start 12/04/16 at 15:33; Stop 12/05/16 at 15:32 Midazolam HCl (Versed) 2 mg STK-MED ONCE .ROUTE ; Start 12/04/16 at 15:42; Stop 12/04/16 at 15:43; Status DC Fentanyl Citrate (Fentanyl 2ml Vial) 100 mcg STK-MED ONCE .ROUTE ; Start at 15:43; Stop 12/04/16 at 15:44; Status DC Propofol 20 ml @ As Directed STK-MED ONCE IV ; Start 12/04/16 at 16:26; Stop 12/04 at 16:27; Status DC Ondansetron HCl (Zofran) 4 mg STK-MED ONCE .ROUTE ; Start 12/04/16 at 16:27; Stop 12/04/16 at 16:28; Status DC Lidocaine HCl (Lidocaine Pf 2% Vial) 5 ml STK-MED ONCE .ROUTE ; Start 12/04/16 at 16:27; Stop 12/04/16 at 16:28; Status DC Sevoflurane (Ultane) 60 ml STK-MED ONCE IH ; Start 12/04/16 at 16:46; Stop at 16:47; Status DC Aspirin (Rose Aspirin) 325 mg DAILY PO Last administered on 12/05/16 08:34; Start 12/05/16 at 09:00 Atorvastatin Calcium (Lipitor) 20 mg HS PO Last administered on 12/04/16 20:53 ; Start 12/04/16 at 21:00 Acetaminophen/ Hydrocodone Bitart (Lortab 5/325) 1 tab Q4HRS PO Last administered on 12/05/16 08:34; Start 12/04/16 at 20:00 Insulin Aspart (NovoLOG) 15 units TIDAC SQ ; Start 12/05/16 at 07:30 Lisinopril (Prinivil) 20 mg DAILY PO ; Start 12/05/16 at 09:00 Acetaminophen (Tylenol) 325 mg PRN Q6HRS PRN PO MILD PAIN / TEMP; Start at 19:30 Acetaminophen/ Hydrocodone Bitart (Lortab 5/325) 1 tab PRN Q6HRS PRN PO MODERATE TO SEVERE PAIN Last administered on 12/05/16 05:15; Start 12/04/16 at 19 :30 Hydralazine HCl (Apresoline) 10 mg PRN Q4HRS PRN IVP ELEVATED BP, SEE COMMENTS Last administered on 12/05/16 01:43; Start 12/04/16 at 19:30 Ondansetron HCl (Zofran) 4 mg PRN Q8HRS PRN IV NAUSEA/VOMITING Last administered on 12/05/16 08:29; Start 12/04/16 at 19:30 Albuterol Sulfate (Ventolin Neb Soln) 2.5 mg PRN Q4HRS PRN NEB SHORTNESS OF BREATH; Start 12/04/16 at 19:30 Fentanyl Citrate (Fentanyl 2ml Vial) 25 mcg 1X ONCE IV Last administered on 21:27; Start 12/04/16 at 21:30; Stop 12/04/16 at 21:31; Status DC Polyethylene Glycol (miraLAX PACKET) 17 gm PRN DAILY PRN PO CONSTIPATION; Start 12/05/16 at 08:00 Active Scripts Active Aspirin 325 Mg Tablet 1 Tab PO DAILY Lipitor (Atorvastatin Calcium) 20 Mg Tablet 20 Mg PO HS Lisinopril 20 Mg Tablet 20 Mg PO DAILY Levemir Flextouch (Insulin Detemir) 100 Unit/1 Ml Insuln.pen 12 Units SQ QHS 30 Days Novolog Flexpen (Insulin Aspart) 100 Unit/1 Ml Insuln.pen 15 Units SQ TIDAC 30 Days Reported Arroyo 5-325 Tablet (Acetaminophen/Hydrocodone Bitart) 1 Each Tablet 1-2 Tab PO Q4HRS Vitals/I & O Vital Sign - Last 24 Hours 12/04/16 12/04/16 12/04/16 12/04/16 11:47 11:55 12:10 12:21 Pulse 85 79 Resp 18 18 12 16 B/P (MAP) 180/103 177/98 Pulse Ox 96 94 94 95 O2 Delivery Nasal Cannula Nasal Cannula Nasal Cannula Nasal Cannula O2 Flow Rate 2.0 2 1 1.0 12/04/16 12/04/16 12/04/16 12/04/16 12:26 12:47 15:21 16:48 Temp 98.2 99.2 98.2 99.2 Pulse 79 78 80 Resp 20 20 20 B/P (MAP) 184/93 192/98 160/95 Pulse Ox 92 94 96 O2 Delivery Room Air Room Air Room Air Mask O2 Flow Rate 1.0 12/04/16 12/04/16 12/04/16 12/04/16 16:48 16:55 17:03 17:05 Temp 97.5 97.5 97.5 97.5 Pulse 75 66 Resp 12 12 12 12 B/P (MAP) 154/90 158/89 Pulse Ox 98 98 98 98 O2 Delivery Room Air Room Air Room Air Room Air O2 Flow Rate 1.0 1.0 1.0 1.0 12/04/16 12/04/16 12/04/16 12/04/16 17:18 17:33 18:04 18:28 Temp 97.5 97.5 97.5 97.5 Pulse 66 69 Resp 15 15 15 B/P (MAP) 169/92 168/87 Pulse Ox 98 98 98 98 O2 Delivery Room Air Room Air Room Air Room Air O2 Flow Rate 1.0 1.0 1.0 1.0 12/04/16 12/04/16 12/04/16 12/04/16 18:45 19:00 19:30 19:30 Pulse 69 98 69 Resp 20 B/P (MAP) 135/78 (97) 126/74 (91) 165/90 (115) Pulse Ox 97 98 96 O2 Delivery Nasal Cannula Nasal Cannula Nasal Cannula Nasal Cannula O2 Flow Rate 2.0 2.0 2.0 2.0 12/04/16 12/04/16 12/04/16 12/04/16 19:45 20:00 20:15 20:54 Pulse 98 84 Resp 20 B/P (MAP) 168/89 (115) 175/94 (121) Pulse Ox 98 99 98 O2 Delivery Nasal Cannula Nasal Cannula Nasal Cannula Room Air O2 Flow Rate 2.0 2.0 2.0 12/04/16 12/04/16 12/04/16 12/04/16 20:57 21:15 21:27 21:39 Pulse 74 75 Resp 20 B/P (MAP) 176/96 165/86 (112) Pulse Ox 99 98 99 O2 Delivery Nasal Cannula Room Air Nasal Cannula O2 Flow Rate 2.0 2.5 12/04/16 12/04/16 12/05/16 12/05/16 21:54 22:15 00:09 01:43 Pulse 74 94 Resp 20 20 B/P (MAP) 146/87 (106) 188/96 Pulse Ox 99 99 99 O2 Delivery Room Air Nasal Cannula Nasal Cannula O2 Flow Rate 2.0 2.0 2.0 12/05/16 12/05/16 12/05/16 12/05/16 01:48 01:49 01:49 03:01 Temp 96.7 97.9 96.7 97.9 Pulse 94 90 90 82 Resp 20 20 20 20 B/P (MAP) 200/110 (140) 177/90 (119) 159/87 (111) 155/74 (101) Pulse Ox 96 97 O2 Delivery Nasal Cannula Nasal Cannula O2 Flow Rate 2.0 2.0 12/05/16 12/05/16 12/05/16 12/05/16 04:55 05:15 05:55 06:15 Resp 20 20 20 20 Pulse Ox 97 97 97 97 O2 Delivery Nasal Cannula Nasal Cannula Nasal Cannula O2 Flow Rate 2.0 2.0 2.0 2.0 12/05/16 12/05/16 12/05/16 12/05/16 07:00 08:34 09:35 11:00 Temp 98.1 98.4 98.1 98.4 Pulse 80 80 Resp 16 16 B/P (MAP) 138/72 (94) 142/80 (100) Pulse Ox 95 96 O2 Delivery Room Air Room Air Room Air Room Air Intake and Output 12/04/16 12/04/16 12/05/16 15:00 23:00 07:00 Intake Total 670 ml 1050 ml 210 ml Output Total 25 ml 100 ml 350 ml Balance 645 ml 950 ml -140 ml ADRIAN CAMARENA III DO Dec 05, 2016 11:47
[2016-12-05] MEDS ORDERED: IV NORMAL SALINE 1000ML BAG 1,000 ML IV PRN ×2 (12:43)
[2016-12-05] MEDS ORDERED: DIALYSIS PATIENT. MC PRN ×2 (12:45)
--- NOTE | 2016-12-05 14:32 | PDOC2 ---
DATE OF CONSULT Date of Consult 12/05/16 REASON FOR CONSULT Reason for Consult ESRD REFERRING PHYSICIAN Referring Provider AYESHA DOBSON CHIEF COMPLAINT Chief Complaint BLEEDING AT [facility] SITE SOURCE Source PATIENT HPI HPI pt is lying comfortably in bed this morning, he has TTP in R arm which continues to be swollen postop, he denies any complaints and states his pain is well managed, he would like to start miralax for his constipation PMH PMH ESRD, HTN PSH PSH [facility] SOCIAL HISTORY Social History LIVES WITH ASSISTANCE CURRENT MEDICATIONS Current Meds Current Medications Medications (Trade) Dose Ordered Sig/Damien Route PRN Reason Start Time Stop Time Status Last Admin Dose Admin Cefazolin Sodium 1 gm/Sodium Chloride 500 ml @ 500 mls/hr 1X PERIOP ONCE IRR 12/04/16 15:00 12/04/16 15:59 DC 12/04/16 15:59 Heparin Sodium (Porcine) 5000 unit/Sodium Chloride 505 ml @ 505 mls/hr 1X PERIOP ONCE IRR 12/04/16 15:00 12/04/16 15:59 DC 12/04/16 15:59 Lidocaine HCl 20 ml STK-MED ONCE .ROUTE 12/04/16 14:37 12/04/16 14:38 DC 12/04/16 15:59 Aspirin (Rose Aspirin) 325 mg DAILY PO 12/05/16 09:00 12/05/16 08:34 Atorvastatin Calcium (Lipitor) 20 mg HS PO 12/04/16 21:00 12/04/16 20:53 Acetaminophen/ Hydrocodone Bitart (Lortab 5/325) 1 tab Q4HRS PO 12/04/16 20:00 12/05/16 08:34 Acetaminophen/ Hydrocodone Bitart (Lortab 5/325) 1 tab PRN Q6HRS PRN PO MODERATE TO SEVERE PAIN 12/04/16 19:30 12/05/16 05:15 Hydralazine HCl (Apresoline) 10 mg PRN Q4HRS PRN IVP ELEVATED BP, SEE COMMENTS 12/04/16 19:30 12/05/16 01:43 Ondansetron HCl (Zofran) 4 mg PRN Q8HRS PRN IV NAUSEA/VOMITING 12/04/16 19:30 12/05/16 08:29 Fentanyl Citrate (Fentanyl 2ml Vial) 25 mcg 1X ONCE IV 12/04/16 21:30 12/04/16 21:31 DC 12/04/16 21:27 ALLERGIES Allergies: Coded Allergies: No Known Drug Allergies (Unverified , 02/01/16) ROS ROS GEN: [ ] Fevers [ ] Chills EYES: [ ] Visual Complaints ENT: [ ] EN Drainage [ ] Hearing deficiets CVS: [ ] Orthopnea [ ] CP RESP: [ ] SOB [ ] URBANO GI: [ ] Nausea [ ] Vomiting : [ ] Dysuria [ ] Urgency HEME: [ ] easy bruising [ ] Palp Ly Nodes NEURO [ ] Focal Weakness [ ] Sz PSYCH: [ ] Suicidal Ideation [ ] Depression SKIN: [ ] Rashes ENDO: [ ] Polyuria or Polydipsia [ ] Hot/Cold Intolerance MU SK: [ ] Arthraigia [ ] Myalgia VITAL SIGNS Vital Signs VS - Last 72 Hours, by Label Date Time Temp Pulse Resp B/P (MAP) Pulse Ox O2 Delivery O2 Flow Rate FiO2 12/05/16 11:00 98.4 80 16 142/80 (100) 96 Room Air 98.4 12/05/16 09:35 Room Air 12/05/16 08:34 Room Air 12/05/16 07:50 Nasal Cannula 2.0 12/05/16 07:00 98.1 80 16 138/72 (94) 95 Room Air 98.1 12/05/16 06:15 20 97 Nasal Cannula 2.0 12/05/16 05:55 20 97 2.0 12/05/16 05:15 20 97 Nasal Cannula 2.0 12/05/16 04:55 20 97 Nasal Cannula 2.0 12/05/16 03:01 97.9 82 20 155/74 (101) 97 Nasal Cannula 2.0 97.9 12/05/16 01:49 90 20 159/87 (111) 12/05/16 01:49 90 20 177/90 (119) 12/05/16 01:48 96.7 94 20 200/110 (140) 96 Nasal Cannula 2.0 96.7 12/05/16 01:43 94 188/96 12/05/16 00:09 20 99 Nasal Cannula 2.0 12/04/16 22:15 74 146/87 (106) 99 Nasal Cannula 2.0 12/04/16 21:54 20 99 Room Air 2.0 12/04/16 21:39 99 Nasal Cannula 2.5 12/04/16 21:27 20 98 Room Air 12/04/16 21:15 75 165/86 (112) 99 Nasal Cannula 2.0 12/04/16 20:57 74 176/96 12/04/16 20:54 20 98 Room Air 12/04/16 20:15 84 175/94 (121) 99 Nasal Cannula 2.0 12/04/16 20:00 Nasal Cannula 2.0 12/04/16 19:45 98 168/89 (115) 98 Nasal Cannula 2.0 12/04/16 19:30 69 20 165/90 (115) 96 Nasal Cannula 2.0 12/04/16 19:30 Nasal Cannula 2.0 12/04/16 19:00 98 126/74 (91) 98 Nasal Cannula 2.0 12/04/16 18:45 69 135/78 (97) 97 Nasal Cannula 2.0 12/04/16 18:28 15 98 Room Air 1.0 12/04/16 18:04 15 98 Room Air 1.0 12/04/16 17:33 97.5 69 15 168/87 98 Room Air 1.0 97.5 12/04/16 17:18 97.5 66 169/92 98 Room Air 1.0 97.5 12/04/16 17:05 12 98 Room Air 1.0 12/04/16 17:03 97.5 66 12 158/89 98 Room Air 1.0 97.5 12/04/16 16:55 12 98 Room Air 1.0 12/04/16 16:48 97.5 75 12 154/90 98 Room Air 1.0 97.5 12/04/16 16:48 Mask 1.0 12/04/16 15:21 99.2 80 20 160/95 96 Room Air 99.2 12/04/16 12:47 78 20 192/98 94 Room Air 12/04/16 12:26 98.2 79 20 184/93 92 Room Air 98.2 12/04/16 12:21 16 95 Nasal Cannula 1.0 12/04/16 12:10 79 12 177/98 94 Nasal Cannula 1 12/04/16 11:55 85 18 180/103 94 Nasal Cannula 2 12/04/16 11:47 18 96 Nasal Cannula 2.0 12/04/16 11:40 76 12 182/98 99 Simple Mask 10 12/04/16 11:37 24 98 Simple Mask 10.0 12/04/16 11:25 79 12 183/101 99 Simple Mask 10 12/04/16 11:24 18 98 Simple Mask 10.0 12/04/16 11:13 16 98 Simple Mask 10.0 12/04/16 11:10 79 20 191/106 98 Simple Mask 10 12/04/16 10:55 Mask 10 12/04/16 10:55 98.8 94 16 215/117 94 Simple Mask 10 98.8 12/04/16 08:45 98.2 81 20 97 98.2 12/04/16 08:14 98.2 81 20 194/97 97 Room Air 98.2 PHYSICAL EXAM Physical Exam GEN: Awake, Oriented x [4], In [NO] distress EYES: Vision Unchanged, Conjunctiva Normal EN: No EN Drainage, Mucous Membranes [MOIST] NECK: [NO INCREASED] JVD, [] JVP, Supple, [NO] Thyromegaly CVS: S1S2, [] Murmur, No Gallop, No Rub,[LUE] Edema RESP: [] Rales, [] Rhonchi,[] Acc. Muscle Use GI: BS + ve, NO Bruit, Non Tender, Non Distended : [] CVA tenderness, [] Suprapubic Tenderness ASSESSMENT/PLAN Assessment/Plan ESRD Current FLuid and E-lyte status does necessitate need for Dialysis. Anemia: [ ] Epogen [ ] Transfuse [ ] with next HD as needed. HTN: Current BP meds reviewed. See orders for changes. Bone & Mineral: [ ] Discussed Plan of Care and prognosis etc. at length with PATIENT AXEL THOMAS MD Dec 05, 2016 14:32
[2016-12-06] MEDS ORDERED: AMLO10TA2 PO (11:55)
[2016-12-06] MEDS ORDERED: CARV12.5 PO (11:55)
--- NOTE | 2016-12-09 17:36 | PDOC4 ---
Operative Note Operative Note Dx: ESRD OP: left brachiocephalic AV fistula Surg: [facility] [place] Indications: 36 y/o with ESRD. Vein mapping shows adequate left cephalic vein in the arm for av fistula creation. Description of procedure: The pt was given IV antibx, and the left arm was prepped and draped in the usual fashion. Incision was made and the cephalic vein and branches were dissected, as was the ulnar artery just distal to the bifurcation. 3000 u heparin was given. The cephalic vein was divided between ligatures and a 3, then 4 mm dialator passed without resistance. A longitudinal arteriotomy was made and the cephalic vein sutured end to side to the brachial artery. The vessel were flushed appropriately and flow restored. Excellent nonpulsatile thrill obtained. The wounds were irrigated and closed with 2 layer closure. Dressings applied. Drains: none specimen: none EBL: <20 cc. to rr in sat. cond. AYESHA DOBSON II, MD Dec 09, 2016 17:36
== END 2016-12-05 19:20 | disposition home or self-care (01) ==
LOC: SURG 07:29 → 4 NORTH 17:19
PROVIDERS: ADMIT Internal Medicine; ATTEND Surgery
DX: L76.22 Postprocedural hemorrhage of skin and subcutaneous tissue following other procedure (principal); N18.6 End stage renal disease; E10.22 Type 1 diabetes mellitus with diabetic chronic kidney disease; D64.9 Anemia, unspecified; E83.51 Hypocalcemia; I12.0 Hypertensive chronic kidney disease with stage 5 chronic kidney disease or end stage renal disease; R11.2 Nausea with vomiting, unspecified; Z79.4 Long term (current) use of insulin; Z82.49 Family history of ischemic heart disease and other diseases of the circulatory system; Z99.2 Dependence on renal dialysis; Y84.1 Kidney dialysis as the cause of abnormal reaction of the patient, or of later complication, without mention of misadventure at the time of the procedure; Y92.89 Other specified places as the place of occurrence of the external cause
CPT/HCPCS: 36415; 36838; 80048; 82962; 85027; 85610; 85730; 87340; 87341; 93005; 94250; 94760; G0378; G0379; J0360; J0690; J0780; J1170; J1815; J2001; J2250; J2405; J2704; J3010; J7030; J7040; S0028; 96372; 96374; 96375; 96376; J1644; J2440

== ENCOUNTER 2016-12-06 01:50 | Inpatient (IN) | payer MEDICARE, OTHER ==
[2016-12-06] VITALS (15 sets, daily range): BP systolic 143–206; BP diastolic 78–98
[~2016-12-06] VITALS: Ht 185.4 cm; Wt 114.3 kg
[~2016-12-06 01:50] MED LIST changes: +HYDR-971 PO; -IV NORMAL SALINE 1000ML BAG 1,000 ML IV SCH; -LIDOCAINE 1% 1 ML SYRINGE. ID PRN; -MORPHINE SULFATE 2 MG/ML DISP.SYRIN. IV PRN; -ONDANSETRON PF 4 MG/2 ML VIAL. IV PRN; -PROCHLORPERAZINE 10 MG/2 ML VIAL. IV PRN; -fentaNYL PF VIAL 100 MCG/2 ML VIAL IV PRN
[2016-12-06] MEDS ORDERED: HYDROcodone/APAP 5/325MG 1 TAB TABLET PO PRN (02:45)
[2016-12-06] MEDS ORDERED: DEXTROSE 50% 25 GM / 50ML DISP.SYRIN. IV PRN (02:45)
[2016-12-06] MEDS ORDERED: diphenhydrAMINE HCL 25 MG CAPSULE PO PRN (02:45)
[2016-12-06] MEDS ORDERED: ACETAMINOPHEN 325 MG TABLET. PO PRN (02:45)
[2016-12-06] MEDS: HYDROmorphone 2 MG/ML VIAL IV PRN ×3 (03:40→16:22)
[2016-12-06 04:10] LABS: BASO % 1 % (0-3); EOS % 6 % (0-3); LYMPH # 1.4 x10^3/uL (1.0-4.8); LYMPH % 27 % (24-48); MEAN CORPUSCULAR HEMOGLOBIN 29 pg (25-35); MEAN CORPUSCULAR HGB CONC 35 g/dL (31-37); MEAN CORPUSCULAR VOLUME 82 fL (79-100); MONO % 8 % (0-9); NEUT % 58 % (31-73); PLATELET COUNT 196 x10^3/uL (140-400); RED CELL DISTRIBUTION WIDTH 15.6 % (11.5-14.5); WHITE BLOOD COUNT 5.2 x10^3/uL (4.0-11.0)
[2016-12-06 04:12] LABS: HEMOGLOBIN 6.3 g/dL (13.0-17.5)
[2016-12-06 05:35] LABS: CALCIUM 7.5 mg/dL (8.5-10.1); CREATININE 8.9 mg/dL (0.7-1.3); GFR 6.7; POTASSIUM 4.5 mmol/L (3.5-5.1)
[2016-12-06] MEDS: INSULIN ASPART 300 UNITS/3 ML INSULN.PEN SQ SCH ×4 (08:00→16:46)
[2016-12-06] MEDS: LISINOPRIL 20 MG TABLET PO SCH (09:13)
[2016-12-06] MEDS ORDERED: AMLO10TA2 PO (11:55)
[2016-12-06] MEDS ORDERED: CARV12.5 PO (11:55)
--- NOTE | 2016-12-06 12:11 | PDOC1 ---
History and Physical Date of Admission Date of Admission DATE: 12/06/16 TIME: 12:06 Identification/Chief Complaint Chief Complaint Arm swelling after shunt , anemia, ESRD on HD Problems: History of Present Illness History of Present Illness Pt was just dc after HD yesterday. I had been called after HD to let him go. He represented to [facility] ER. Noted to be chronically anemic with a HgB of 6.4. Apparently he didn't get along with the HD staff yesterday either? Basically he is a new Dialysisi patient with a new L arm shunt that hasnt healed yet. He has had to go to OR twice. The arm is quite swollen. [facility] ER DOC Pt seen and examined Plan to admit with Neph and Vasc surgery consults and prn transfusions with HD Dictation still broken Total time 35 minutes Past Medical History Cardiovascular: HTN Social History ALCOHOL: none Drugs: None Current Medications Current Medications Current Medications Insulin Detemir (Levemir) 12 units QHS SQ ; Start 12/06/16 at 21:00 Insulin Aspart (NovoLOG) 15 units TIDWMEALS SQ ; Start 12/06/16 at 08:00 Dextrose (Dextrose 50%-Water Syringe) 12.5 gm PRN Q15MIN PRN IV SEE COMMENTS; Start 12/06/16 at 02:45 Acetaminophen (Tylenol) 650 mg 1X PRN PRN PO PRN prior to blood transfusion; Start 12/06/16 at 02:45; Stop 12/07/16 at 02:44 Diphenhydramine HCl (Benadryl) 25 mg 1X PRN PRN PO prior to blood transfusion; Start 12/06/16 at 02:45; Stop 12/07/16 at 02:44 Hydromorphone HCl (Dilaudid) 1 mg PRN Q2HR PRN IV SEVERE PAIN Last administered on 12/06/16 09:55; Start 12/06/16 at 02:45 Atorvastatin Calcium (Lipitor) 20 mg HS PO ; Start 12/06/16 at 21:00 Acetaminophen/ Hydrocodone Bitart (Lortab 5/325) 1 tab PRN Q4HRS PRN PO MODERATE PAIN; Start 12/06/16 at 02:45 Lisinopril (Prinivil) 20 mg DAILY PO Last administered on 12/06/16 09:13; Start 12/06/16 at 09:00 Ondansetron HCl (Zofran) 4 mg PRN Q6HRS PRN IV NAUSEA/VOMITING; Start 12/06/16 at 02:45 Acetaminophen/ Hydrocodone Bitart (Lortab 5/325) 2 tab PRN Q4HRS PRN PO SEVERE PAIN; Start 12/06/16 at 06:45 Active Scripts Active Aspirin 325 Mg Tablet 1 Tab PO DAILY Lipitor (Atorvastatin Calcium) 20 Mg Tablet 20 Mg PO HS Lisinopril 20 Mg Tablet 20 Mg PO DAILY Levemir Flextouch (Insulin Detemir) 100 Unit/1 Ml Insuln.pen 12 Units SQ QHS 30 Days Novolog Flexpen (Insulin Aspart) 100 Unit/1 Ml Insuln.pen 15 Units SQ TIDAC 30 Days Reported Amlodipine Besylate 10 Mg Tablet 10 Mg PO DAILY Coreg (Carvedilol) 12.5 Mg Tablet 1 Tab PO DAILY [place] 5-325 Tablet (Acetaminophen/Hydrocodone Bitart) 1 Each Tablet 1-2 Tab PO Q4HRS Allergies Allergies: Coded Allergies: No Known Drug Allergies (Unverified , 02/01/16) Vitals Vitals Vital Signs Date Time Temp Pulse Resp B/P (MAP) Pulse Ox O2 Delivery O2 Flow Rate FiO2 12/06/16 11:51 97.7 88 18 177/85 97.7 12/06/16 11:06 95 Room Air Labs Labs Laboratory Tests Test 12/06/16 03:30 12/06/16 07:00 12/06/16 10:06 White Blood Count 5.2 x10^3/uL (4.0-11.0) Red Blood Count 2.20 x10^6/uL (4.30-5.70) Hemoglobin 6.3 g/dL (13.0-17.5) Hematocrit 18.0 % (39.0-53.0) Mean Corpuscular Volume 82 fL (79-100) Mean Corpuscular Hemoglobin 29 pg (25-35) Mean Corpuscular Hemoglobin Concent 35 g/dL (31-37) Red Cell Distribution Width 15.6 % (11.5-14.5) Platelet Count 196 x10^3/uL (140-400) Neutrophils (%) (Auto) 58 % (31-73) Lymphocytes (%) (Auto) 27 % (24-48) Monocytes (%) (Auto) 8 % (0-9) Eosinophils (%) (Auto) 6 % (0-3) Basophils (%) (Auto) 1 % (0-3) Neutrophils # (Auto) 3.0 x10^3uL (1.8-7.7) Lymphocytes # (Auto) 1.4 x10^3/uL (1.0-4.8) Monocytes # (Auto) 0.4 x10^3/uL (0.0-1.1) Eosinophils # (Auto) 0.3 x10^3/uL (0.0-0.7) Basophils # (Auto) 0.0 x10^3/uL (0.0-0.2) Sodium Level 140 mmol/L (136-145) Potassium Level 4.5 mmol/L (3.5-5.1) Chloride Level 101 mmol/L (98-107) Carbon Dioxide Level 30 mmol/L (21-32) Anion Gap 9 (6-14) Blood Urea Nitrogen 49 mg/dL (8-26) Creatinine 8.9 mg/dL (0.7-1.3) Estimated GFR (Cockcroft-Gault) 6.7 Glucose Level 153 mg/dL (70-99) Calcium Level 7.5 mg/dL (8.5-10.1) Glucose (Fingerstick) 115 mg/dL (70-99) 115 mg/dL (70-99) Laboratory Tests Test 12/06/16 03:30 12/06/16 07:00 12/06/16 10:06 White Blood Count 5.2 x10^3/uL (4.0-11.0) Red Blood Count 2.20 x10^6/uL (4.30-5.70) Hemoglobin 6.3 g/dL (13.0-17.5) Hematocrit 18.0 % (39.0-53.0) Mean Corpuscular Volume 82 fL (79-100) Mean Corpuscular Hemoglobin 29 pg (25-35) Mean Corpuscular Hemoglobin Concent 35 g/dL (31-37) Red Cell Distribution Width 15.6 % (11.5-14.5) Platelet Count 196 x10^3/uL (140-400) Neutrophils (%) (Auto) 58 % (31-73) Lymphocytes (%) (Auto) 27 % (24-48) Monocytes (%) (Auto) 8 % (0-9) Eosinophils (%) (Auto) 6 % (0-3) Basophils (%) (Auto) 1 % (0-3) Neutrophils # (Auto) 3.0 x10^3uL (1.8-7.7) Lymphocytes # (Auto) 1.4 x10^3/uL (1.0-4.8) Monocytes # (Auto) 0.4 x10^3/uL (0.0-1.1) Eosinophils # (Auto) 0.3 x10^3/uL (0.0-0.7) Basophils # (Auto) 0.0 x10^3/uL (0.0-0.2) Sodium Level 140 mmol/L (136-145) Potassium Level 4.5 mmol/L (3.5-5.1) Chloride Level 101 mmol/L (98-107) Carbon Dioxide Level 30 mmol/L (21-32) Anion Gap 9 (6-14) Blood Urea Nitrogen 49 mg/dL (8-26) Creatinine 8.9 mg/dL (0.7-1.3) Estimated GFR (Cockcroft-Gault) 6.7 Glucose Level 153 mg/dL (70-99) Calcium Level 7.5 mg/dL (8.5-10.1) Glucose (Fingerstick) 115 mg/dL (70-99) 115 mg/dL (70-99) VTE Prophylaxis Ordered VTE Prophylaxis Devices: Yes VTE Pharmacological Prophylaxi: Yes ADRIAN CAMARENA III DO Dec 06, 2016 12:10
[2016-12-06] MEDS: ASPIRIN 325 MG TABLET PO SCH (12:47)
[2016-12-06] MEDS: amLODIPine BESYLATE 10 MG TABLET PO SCH (12:47)
[2016-12-06] MEDS: CARVEDILOL 12.5 MG TABLET. PO SCH (12:48)
--- NOTE | 2016-12-06 12:57 | PDOC ---
PROGRESS NOTES Subjective Subjective seen in follow up of esrd Objective Objective Vital Signs Date Time Temp Pulse Resp B/P (MAP) Pulse Ox O2 Delivery O2 Flow Rate FiO2 12/06/16 12:48 88 177/85 12/06/16 11:51 97.7 18 97.7 12/06/16 11:06 95 Room Air Intake and Output 12/06/16 07:00 Intake Total 330 ml Output Total 0 ml Balance 330 ml Intake Blood Product IV Normal Saline Flush 330 ml Output Urine Total 0 ml Physical Exam Abdomen: Normal bowel sounds, Soft, No tenderness, No hepatosplenomegaly, No masses Heart: Regular rate, Normal S1, Normal S2, No murmurs, Gallops Extremities: Other (lue edema) General: Alert, Oriented X3, Cooperative, No acute distress HEENT: Other (blind) Lungs: Clear to auscultation, Normal air movement Neck: Supple, No JVD, No thyromegaly Psych/Mental Status: Mental status NL, Mood NL Diagnosis DIABETES: Type II RENAL FAILURE: ESRD Plan Plan of Care receiving rbc now. for dialysis tomorrow Comment Review of Relevant I have reviewed the following items juan a (where applicable) has been applied. Labs Laboratory Tests Test 12/06/16 03:30 12/06/16 07:00 12/06/16 10:06 White Blood Count 5.2 x10^3/uL (4.0-11.0) Red Blood Count 2.20 x10^6/uL (4.30-5.70) Hemoglobin 6.3 g/dL (13.0-17.5) Hematocrit 18.0 % (39.0-53.0) Mean Corpuscular Volume 82 fL (79-100) Mean Corpuscular Hemoglobin 29 pg (25-35) Mean Corpuscular Hemoglobin Concent 35 g/dL (31-37) Red Cell Distribution Width 15.6 % (11.5-14.5) Platelet Count 196 x10^3/uL (140-400) Neutrophils (%) (Auto) 58 % (31-73) Lymphocytes (%) (Auto) 27 % (24-48) Monocytes (%) (Auto) 8 % (0-9) Eosinophils (%) (Auto) 6 % (0-3) Basophils (%) (Auto) 1 % (0-3) Neutrophils # (Auto) 3.0 x10^3uL (1.8-7.7) Lymphocytes # (Auto) 1.4 x10^3/uL (1.0-4.8) Monocytes # (Auto) 0.4 x10^3/uL (0.0-1.1) Eosinophils # (Auto) 0.3 x10^3/uL (0.0-0.7) Basophils # (Auto) 0.0 x10^3/uL (0.0-0.2) Sodium Level 140 mmol/L (136-145) Potassium Level 4.5 mmol/L (3.5-5.1) Chloride Level 101 mmol/L (98-107) Carbon Dioxide Level 30 mmol/L (21-32) Anion Gap 9 (6-14) Blood Urea Nitrogen 49 mg/dL (8-26) Creatinine 8.9 mg/dL (0.7-1.3) Estimated GFR (Cockcroft-Gault) 6.7 Glucose Level 153 mg/dL (70-99) Calcium Level 7.5 mg/dL (8.5-10.1) Glucose (Fingerstick) 115 mg/dL (70-99) 115 mg/dL (70-99) Laboratory Tests Test 12/06/16 03:30 12/06/16 07:00 12/06/16 10:06 White Blood Count 5.2 x10^3/uL (4.0-11.0) Red Blood Count 2.20 x10^6/uL (4.30-5.70) Hemoglobin 6.3 g/dL (13.0-17.5) Hematocrit 18.0 % (39.0-53.0) Mean Corpuscular Volume 82 fL (79-100) Mean Corpuscular Hemoglobin 29 pg (25-35) Mean Corpuscular Hemoglobin Concent 35 g/dL (31-37) Red Cell Distribution Width 15.6 % (11.5-14.5) Platelet Count 196 x10^3/uL (140-400) Neutrophils (%) (Auto) 58 % (31-73) Lymphocytes (%) (Auto) 27 % (24-48) Monocytes (%) (Auto) 8 % (0-9) Eosinophils (%) (Auto) 6 % (0-3) Basophils (%) (Auto) 1 % (0-3) Neutrophils # (Auto) 3.0 x10^3uL (1.8-7.7) Lymphocytes # (Auto) 1.4 x10^3/uL (1.0-4.8) Monocytes # (Auto) 0.4 x10^3/uL (0.0-1.1) Eosinophils # (Auto) 0.3 x10^3/uL (0.0-0.7) Basophils # (Auto) 0.0 x10^3/uL (0.0-0.2) Sodium Level 140 mmol/L (136-145) Potassium Level 4.5 mmol/L (3.5-5.1) Chloride Level 101 mmol/L (98-107) Carbon Dioxide Level 30 mmol/L (21-32) Anion Gap 9 (6-14) Blood Urea Nitrogen 49 mg/dL (8-26) Creatinine 8.9 mg/dL (0.7-1.3) Estimated GFR (Cockcroft-Gault) 6.7 Glucose Level 153 mg/dL (70-99) Calcium Level 7.5 mg/dL (8.5-10.1) Glucose (Fingerstick) 115 mg/dL (70-99) 115 mg/dL (70-99) Medications Current Medications Insulin Detemir (Levemir) 12 units QHS SQ ; Start 12/06/16 at 21:00; Stop at 21:00; Status DC Insulin Aspart (NovoLOG) 15 units TIDWMEALS SQ ; Start 12/06/16 at 08:00; Stop at 12:15; Status DC Dextrose (Dextrose 50%-Water Syringe) 12.5 gm PRN Q15MIN PRN IV SEE COMMENTS; Start 12/06/16 at 02:45 Acetaminophen (Tylenol) 650 mg 1X PRN PRN PO PRN prior to blood transfusion; Start 12/06/16 at 02:45; Stop 12/07/16 at 02:44 Diphenhydramine HCl (Benadryl) 25 mg 1X PRN PRN PO prior to blood transfusion; Start 12/06/16 at 02:45; Stop 12/07/16 at 02:44 Hydromorphone HCl (Dilaudid) 1 mg PRN Q2HR PRN IV SEVERE PAIN Last administered on 12/06/16 09:55; Start 12/06/16 at 02:45 Atorvastatin Calcium (Lipitor) 20 mg HS PO ; Start 12/06/16 at 21:00 Acetaminophen/ Hydrocodone Bitart (Lortab 5/325) 1 tab PRN Q4HRS PRN PO MODERATE PAIN; Start 12/06/16 at 02:45 Lisinopril (Prinivil) 20 mg DAILY PO Last administered on 12/06/16 09:13; Start 12/06/16 at 09:00 Ondansetron HCl (Zofran) 4 mg PRN Q6HRS PRN IV NAUSEA/VOMITING; Start 12/06/16 at 02:45 Acetaminophen/ Hydrocodone Bitart (Lortab 5/325) 2 tab PRN Q4HRS PRN PO SEVERE PAIN; Start 12/06/16 at 06:45 Amlodipine Besylate (Norvasc) 10 mg DAILY PO Last administered on 12/06/16 12: 47; Start 12/06/16 at 12:30 Aspirin (Rose Aspirin) 325 mg DAILY PO Last administered on 12/06/16 12:47; Start 12/06/16 at 12:30 Carvedilol (Coreg) 12.5 mg DAILY PO Last administered on 12/06/16 12:48; Start 12/06/16 at 12:30 Insulin Aspart (NovoLOG) 15 units TIDAC SQ ; Start 12/06/16 at 12:30 Insulin Detemir (Levemir) 12 units QHS SQ ; Start 12/06/16 at 21:00 Active Scripts Active Aspirin 325 Mg Tablet 1 Tab PO DAILY Lipitor (Atorvastatin Calcium) 20 Mg Tablet 20 Mg PO HS Lisinopril 20 Mg Tablet 20 Mg PO DAILY Levemir Flextouch (Insulin Detemir) 100 Unit/1 Ml Insuln.pen 12 Units SQ QHS 30 Days Novolog Flexpen (Insulin Aspart) 100 Unit/1 Ml Insuln.pen 15 Units SQ TIDAC 30 Days Reported Amlodipine Besylate 10 Mg Tablet 10 Mg PO DAILY Coreg (Carvedilol) 12.5 Mg Tablet 1 Tab PO DAILY [place] 5-325 Tablet (Acetaminophen/Hydrocodone Bitart) 1 Each Tablet 1-2 Tab PO Q4HRS Vitals/I & O Vital Sign - Last 24 Hours 12/06/16 12/06/16 12/06/16 7/9/17 03:00 03:00 03:40 06:20 Temp 97.9 97.9 97.9 97.9 Pulse 90 89 Resp 18 16 B/P (MAP) 188/91 (123) 157/84 Pulse Ox 96 O2 Delivery Room Air Room Air Room Air 12/06/16 12/06/16 12/06/16 12/06/16 06:35 07:00 07:17 07:50 Temp 98.1 97.9 97.9 98.1 97.9 97.9 Pulse 86 85 85 Resp 16 18 16 B/P (MAP) 167/83 165/82 (109) 165/82 Pulse Ox 94 O2 Delivery Room Air Room Air 12/06/16 12/06/16 12/06/16 12/06/16 08:17 08:50 09:13 09:55 Temp 97.9 98.8 97.9 98.8 Pulse 82 86 86 Resp 18 18 18 B/P (MAP) 151/82 167/87 (113) 167/87 Pulse Ox 95 95 O2 Delivery Room Air Room Air 12/06/16 12/06/16 12/06/16 12/06/16 10:25 10:51 11:06 11:51 Temp 98.4 97.9 97.7 98.4 97.9 97.7 Pulse 91 89 88 Resp 18 18 18 18 B/P (MAP) 166/82 179/96 (123) 177/85 Pulse Ox 95 95 O2 Delivery Room Air Room Air 12/06/16 12/06/16 12:47 12:48 Pulse 88 88 B/P (MAP) 177/85 177/85 Intake and Output 12/05/16 12/05/16 12/06/16 15:00 23:00 07:00 Intake Total 330 ml Output Total 0 ml Balance 330 ml AXEL THOMAS MD Dec 06, 2016 12:57
[2016-12-06] MEDS: HYDROcodone/APAP 5/325MG 1 TAB TABLET PO PRN ×2 (13:00→23:52)
--- NOTE | 2016-12-06 13:02 | PDOC ---
SURGICAL PROGRESS NOTE Subjective Was seen and examined at the bedside. Apparently the patient had problems with further skin bleeding from the left arm incision resulting in him presenting back to an outside hospital and then subsequent transfer back to [facility]. Patient has complaints of left forearm swelling and tenderness associated with this. I saw the patient yesterday in dialysis and inspected his arm and there was swelling in the forearm but not to a severe degree. The incision has remained clean and dry and there is no evidence of bleeding. The patient still has a palpable thrill in his fistula and a palpable pulse at the level of the left wrist in the radial artery. Vital Signs Vital Signs Date Time Temp Pulse Resp B/P (MAP) Pulse Ox O2 Delivery O2 Flow Rate FiO2 12/06/16 12:48 88 177/85 12/06/16 11:51 97.7 18 97.7 12/06/16 11:06 95 Room Air I&O Intake and Output 12/06/16 07:00 Intake Total 330 ml Output Total 0 ml Balance 330 ml Intake Blood Product IV Normal Saline Flush 330 ml Output Urine Total 0 ml General: Alert, Oriented X3, Cooperative, No acute distress HEENT: Atraumatic, PERRLA Lungs: Clear to auscultation, Normal air movement Heart: Regular rate, Normal S1, Normal S2, No murmurs, Gallops Abdomen: Normal bowel sounds, Soft, Other (obese) Extremities: No clubbing, No cyanosis, Other (the left forearm is swollen primarily secondary to dependency, there is no swelling at the incision site, there is no pulsatile hematoma, there is no bleeding from the incision, the patient has a palpable thrill in the cephalic vein, there is a palpable pulse in the left radial artery) Skin: No rashes, No breakdown Neuro: Strength at 5/5 X4 ext, Normal tone, Sensation intact, Other (motor function is intact, 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, he does have pain to flexion of his fingers due to swelling in his forearm, his forearm is soft and I do not suspect compartment syndrome) Psych/Mental Status: Mental status NL, Mood NL Labs Laboratory Tests Test 12/06/16 03:30 12/06/16 07:00 12/06/16 10:06 White Blood Count 5.2 x10^3/uL (4.0-11.0) Red Blood Count 2.20 x10^6/uL (4.30-5.70) Hemoglobin 6.3 g/dL (13.0-17.5) Hematocrit 18.0 % (39.0-53.0) Mean Corpuscular Volume 82 fL (79-100) Mean Corpuscular Hemoglobin 29 pg (25-35) Mean Corpuscular Hemoglobin Concent 35 g/dL (31-37) Red Cell Distribution Width 15.6 % (11.5-14.5) Platelet Count 196 x10^3/uL (140-400) Neutrophils (%) (Auto) 58 % (31-73) Lymphocytes (%) (Auto) 27 % (24-48) Monocytes (%) (Auto) 8 % (0-9) Eosinophils (%) (Auto) 6 % (0-3) Basophils (%) (Auto) 1 % (0-3) Neutrophils # (Auto) 3.0 x10^3uL (1.8-7.7) Lymphocytes # (Auto) 1.4 x10^3/uL (1.0-4.8) Monocytes # (Auto) 0.4 x10^3/uL (0.0-1.1) Eosinophils # (Auto) 0.3 x10^3/uL (0.0-0.7) Basophils # (Auto) 0.0 x10^3/uL (0.0-0.2) Sodium Level 140 mmol/L (136-145) Potassium Level 4.5 mmol/L (3.5-5.1) Chloride Level 101 mmol/L (98-107) Carbon Dioxide Level 30 mmol/L (21-32) Anion Gap 9 (6-14) Blood Urea Nitrogen 49 mg/dL (8-26) Creatinine 8.9 mg/dL (0.7-1.3) Estimated GFR (Cockcroft-Gault) 6.7 Glucose Level 153 mg/dL (70-99) Calcium Level 7.5 mg/dL (8.5-10.1) Glucose (Fingerstick) 115 mg/dL (70-99) 115 mg/dL (70-99) Laboratory Tests Test 12/06/16 03:30 12/06/16 07:00 12/06/16 10:06 White Blood Count 5.2 x10^3/uL (4.0-11.0) Red Blood Count 2.20 x10^6/uL (4.30-5.70) Hemoglobin 6.3 g/dL (13.0-17.5) Hematocrit 18.0 % (39.0-53.0) Mean Corpuscular Volume 82 fL (79-100) Mean Corpuscular Hemoglobin 29 pg (25-35) Mean Corpuscular Hemoglobin Concent 35 g/dL (31-37) Red Cell Distribution Width 15.6 % (11.5-14.5) Platelet Count 196 x10^3/uL (140-400) Neutrophils (%) (Auto) 58 % (31-73) Lymphocytes (%) (Auto) 27 % (24-48) Monocytes (%) (Auto) 8 % (0-9) Eosinophils (%) (Auto) 6 % (0-3) Basophils (%) (Auto) 1 % (0-3) Neutrophils # (Auto) 3.0 x10^3uL (1.8-7.7) Lymphocytes # (Auto) 1.4 x10^3/uL (1.0-4.8) Monocytes # (Auto) 0.4 x10^3/uL (0.0-1.1) Eosinophils # (Auto) 0.3 x10^3/uL (0.0-0.7) Basophils # (Auto) 0.0 x10^3/uL (0.0-0.2) Sodium Level 140 mmol/L (136-145) Potassium Level 4.5 mmol/L (3.5-5.1) Chloride Level 101 mmol/L (98-107) Carbon Dioxide Level 30 mmol/L (21-32) Anion Gap 9 (6-14) Blood Urea Nitrogen 49 mg/dL (8-26) Creatinine 8.9 mg/dL (0.7-1.3) Estimated GFR (Cockcroft-Gault) 6.7 Glucose Level 153 mg/dL (70-99) Calcium Level 7.5 mg/dL (8.5-10.1) Glucose (Fingerstick) 115 mg/dL (70-99) 115 mg/dL (70-99) Assessment/Plan End-stage renal disease on hemodialysis--the patient likely decompressed a hematoma from underneath his incision due to the significant amount of bleeding that occurred directly postoperatively area I do not suspect that the patient has ongoing active bleeding from his fistula. The patient certainly has significant soft tissue swelling particularly of the left forearm. I am not concerned of a left forearm compartment syndrome. The patient does not require return to the operating room for any intervention. I will allow the patient to eat. I did place a 6 inch Casimiro wrap to the left arm, and the patient's arm should be elevated on at least 4 pillows. The patient's arm was improved after I was able to place the Casimiro wrap according to him. We will monitor him as an inpatient to ensure that the swelling subsides, and to ensure that we have no further issues with his postoperative course. The patient has chronic anemia, and is receiving packed red blood cells appropriately. We will continue to follow the patient with you until this issue is resolved. Shaneka Sweet DO, FACS, RPVI Washing Machine Repairer of Vascular Surgery [facility] Problems: SHANEKA SWEET DO Dec 06, 2016 13:02
[2016-12-06] MEDS: ONDANSETRON PF 4 MG/2 ML VIAL. IV PRN (16:51)
[2016-12-06] MEDS ORDERED: INSULIN DETEMIR 300 UNITS/3 ML INSULN.PEN. SQ SCH ×2 (21:00)
[2016-12-06] MEDS ORDERED: ATORVASTATIN CALCIUM 20 MG TABLET PO SCH (21:00)
[2016-12-07 03:00] VITALS: BP 184/96
--- NOTE | 2016-12-07 05:30 | ACF ---
Admission Forms Criteria ANEMIA, IRON DEFICIENCY OR UNSPECIFIED Clinical Indications for Inpatient Care (Place 'X' for any and all applicable criteria): Admission is indicated for ANY ONE of the following(1)(2)(3)(4)(5)(6)(7): [X] I. Inpatient admission required rather than observation care (Also use Anemia, Iron Deficiency or Unspecified: Observation Care guideline as appropriate) because of ANY ONE of the following: [] a) Hemodynamic instability that is severe or persistent [] b) Active bleeding that cannot be rapidly controlled [] c) CVS symptoms (i.e., dyspnea, chest pain, heart failure) that are severe or persistent [] d) Neurologic symptoms (i.e., cognitive impairment, recurrent syncope or near syncope) that are severe or persistent [] e) Cardiac arrhythmias of immediate concern [] f) Acute peripheral ischemia (e.g., pulseless, cool, mottled, or cyanotic extremity) [] g) High-risk low platelet count [] h) Acute renal failure [] i) Ongoing transfusion for blood loss (greater than 2 units) [] j) IV fluid to replace significant ongoing (eg, >24 hours) losses (> 3 L/m2 per day) [] k) Pulmonary artery catheter monitoring [] l) Supplemental oxygen or respiratory treatments for over 24 hours that are performable only in acute inpatient setting [] m) Immediate inpatient surgery [X] n) Other condition, treatment or monitoring requiring inpatient admission [] II Active massive hemorrhage [] III. Active hemolysis with rapidly progressive anemia [A](6) Extended stay beyond goal length of stay may be needed for (17)(18) []a) Diagnosed cause of anemia requiring longer hospitalization (eg, active GI bleeding, immune hemolysis requiring electrophoresis, complications of malignancy requiring acute care []b) Continued emergent anemia indicators (23) []c) Transfusion reactions []d) Associated leukopenia or thrombocytopenia needing inpatient care []e) Active comorbidities (eg, renal failure, heart failure) The original [facility] content created by [facility] has been revised. The portions of the content which have been revised are identified through the use of italic text or in bold. [facility] Guidelines has neither reviewed nor approved the modified material. All other unmodified content is copyright [facility]. Please see references footnoted in the original [facility] edition 2016 Admission Criteria Met?: Yes ABIOLA ACEVEDO Dec 07, 2016 05:30
[2016-12-07 07:00] VITALS: BP 180/95
[2016-12-07 08:04] LABS: BASO % 1 % (0-3); EOS % 6 % (0-3); HEMATOCRIT 25.1 % (39.0-53.0); HEMOGLOBIN 8.6 g/dL (13.0-17.5); LYMPH # 1.4 x10^3/uL (1.0-4.8); LYMPH % 25 % (24-48); MEAN CORPUSCULAR HEMOGLOBIN 29 pg (25-35); MEAN CORPUSCULAR HGB CONC 35 g/dL (31-37); MEAN CORPUSCULAR VOLUME 84 fL (79-100); MONO % 9 % (0-9); NEUT % 60 % (31-73); PLATELET COUNT 205 x10^3/uL (140-400); RED BLOOD COUNT 2.98 x10^6/uL (4.30-5.70); RED CELL DISTRIBUTION WIDTH 15.4 % (11.5-14.5); WHITE BLOOD COUNT 5.7 x10^3/uL (4.0-11.0)
[2016-12-07 08:20] LABS: CALCIUM 8.1 mg/dL (8.5-10.1); CREATININE 10.6 mg/dL (0.7-1.3); GFR 5.5
[2016-12-07] MEDS: INSULIN ASPART 300 UNITS/3 ML INSULN.PEN SQ SCH ×3 (08:26→17:10)
[2016-12-07 08:38] LABS: POTASSIUM 4.6 mmol/L (3.5-5.1)
[2016-12-07] MEDS: ONDANSETRON PF 4 MG/2 ML VIAL. IV PRN (08:54)
[2016-12-07] MEDS ORDERED: 0.9 % SODIUM CHLORIDE 10 ML DISP.SYRIN. IV PRN ×2 (10:45)
[2016-12-07] MEDS ORDERED: DIALYSIS PATIENT. MC PRN ×2 (10:45)
--- NOTE | 2016-12-07 12:04 | PDOC ---
Renal-Progress Notes Subjective Notes Notes LEFT ARM PAIN IS LESS History of Present Illness Hx of present illness STABLE Vitals Vitals Vital Signs Date Time Temp Pulse Resp B/P (MAP) Pulse Ox O2 Delivery O2 Flow Rate FiO2 12/07/16 07:00 97.9 95 18 180/95 (123) 97 Room Air 97.9 Weight Weight [ ] I.O. Intake and Output Intake and Output 12/07/16 07:00 Intake Total 1680 ml Output Total 875 ml Balance 805 ml Intake Oral 1680 ml Output Urine Total 875 ml Labs Labs Laboratory Tests Test 12/06/16 16:13 12/06/16 20:32 12/07/16 06:57 12/07/16 07:50 Glucose (Fingerstick) 154 mg/dL (70-99) 81 mg/dL (70-99) 93 mg/dL (70-99) White Blood Count 5.7 x10^3/uL (4.0-11.0) Red Blood Count 2.98 x10^6/uL (4.30-5.70) Hemoglobin 8.6 g/dL (13.0-17.5) Hematocrit 25.1 % (39.0-53.0) Mean Corpuscular Volume 84 fL (79-100) Mean Corpuscular Hemoglobin 29 pg (25-35) Mean Corpuscular Hemoglobin Concent 35 g/dL (31-37) Red Cell Distribution Width 15.4 % (11.5-14.5) Platelet Count 205 x10^3/uL (140-400) Neutrophils (%) (Auto) 60 % (31-73) Lymphocytes (%) (Auto) 25 % (24-48) Monocytes (%) (Auto) 9 % (0-9) Eosinophils (%) (Auto) 6 % (0-3) Basophils (%) (Auto) 1 % (0-3) Neutrophils # (Auto) 3.4 x10^3uL (1.8-7.7) Lymphocytes # (Auto) 1.4 x10^3/uL (1.0-4.8) Monocytes # (Auto) 0.5 x10^3/uL (0.0-1.1) Eosinophils # (Auto) 0.3 x10^3/uL (0.0-0.7) Basophils # (Auto) 0.0 x10^3/uL (0.0-0.2) Sodium Level 139 mmol/L (136-145) Potassium Level 4.6 mmol/L (3.5-5.1) Chloride Level 100 mmol/L (98-107) Carbon Dioxide Level 29 mmol/L (21-32) Anion Gap 10 (6-14) Blood Urea Nitrogen 61 mg/dL (8-26) Creatinine 10.6 mg/dL (0.7-1.3) Estimated GFR (Cockcroft-Gault) 5.5 Glucose Level 101 mg/dL (70-99) Calcium Level 8.1 mg/dL (8.5-10.1) Review of Systems Constitutional: yes: weakness, alert, oriented Eyes: Yes: no symptom reported Cardiovascular: Yes no symptom reported Gastrointestional: Yes: no symptom reported Genitourinary: Yes: other (ANURIA) Musculoskeletal: Yes: other (LEFT ARM PAIN) Psychiatric/Neurological: Yes: no symptom reported Physical Exam General Appearance: no apparent distress Skin: warm Heart: S1S2, RRR Abdomen: soft Neurology: alert, oriented Assessment Assessment IMP ANEMIA S/P LEFT ARM AVF WITH HEMATOMA ESRD HTN DM PLAN VASCULAR SURGERY FOLLOWING HD TODAY UF TO CAROLYN WRIGHT MD Dec 07, 2016 12:04
[2016-12-07] MEDS: LISINOPRIL 20 MG TABLET PO SCH (12:08)
[2016-12-07] MEDS: ASPIRIN 325 MG TABLET PO SCH (12:09)
[2016-12-07] MEDS: amLODIPine BESYLATE 10 MG TABLET PO SCH (12:09)
[2016-12-07] MEDS: CARVEDILOL 12.5 MG TABLET. PO SCH (12:10)
[2016-12-07] MEDS ORDERED: diphenhydrAMINE 50 MG/ML VIAL IVP PRN (13:15)
[2016-12-07] MEDS ORDERED: DIPHENHYDRAMINE/ZINC ACETATE 2%/0.1% TOPICAL CREAM 28GM TUBE. TP PRN (13:15)
[2016-12-07] MEDS: HYDROcodone/APAP 5/325MG 1 TAB TABLET PO PRN (13:37)
--- NOTE | 2016-12-07 14:35 | PDOC ---
SURGICAL PROGRESS NOTE Subjective No acute events. Arm feels better today. Pain controlled. Vital Signs Vital Signs Date Time Temp Pulse Resp B/P (MAP) Pulse Ox O2 Delivery O2 Flow Rate FiO2 12/07/16 13:37 97 Room Air 12/07/16 12:10 95 179/96 12/07/16 07:00 97.9 18 97.9 I&O Intake and Output 12/07/16 07:00 Intake Total 1680 ml Output Total 875 ml Balance 805 ml Intake Oral 1680 ml Output Urine Total 875 ml General: Alert, Oriented X3, Cooperative, No acute distress HEENT: Atraumatic, PERRLA, EOMI Lungs: Clear to auscultation, Normal air movement Heart: Regular rate, Normal S1, Normal S2, No murmurs, Gallops Abdomen: Normal bowel sounds, Soft, No tenderness Extremities: No clubbing, No cyanosis, Other (left forearm incision swelling improved, no evidence of compartment syndrome, +thrill ) Skin: No rashes, No breakdown, No significant lesion Neuro: Strength at 5/5 X4 ext, Normal tone, Sensation intact Psych/Mental Status: Mental status NL, Mood NL Labs Laboratory Tests Test 12/06/16 03:30 12/06/16 07:00 12/06/16 10:06 12/06/16 16:13 White Blood Count 5.2 x10^3/uL (4.0-11.0) Red Blood Count 2.20 x10^6/uL (4.30-5.70) Hemoglobin 6.3 g/dL (13.0-17.5) Hematocrit 18.0 % (39.0-53.0) Mean Corpuscular Volume 82 fL (79-100) Mean Corpuscular Hemoglobin 29 pg (25-35) Mean Corpuscular Hemoglobin Concent 35 g/dL (31-37) Red Cell Distribution Width 15.6 % (11.5-14.5) Platelet Count 196 x10^3/uL (140-400) Neutrophils (%) (Auto) 58 % (31-73) Lymphocytes (%) (Auto) 27 % (24-48) Monocytes (%) (Auto) 8 % (0-9) Eosinophils (%) (Auto) 6 % (0-3) Basophils (%) (Auto) 1 % (0-3) Neutrophils # (Auto) 3.0 x10^3uL (1.8-7.7) Lymphocytes # (Auto) 1.4 x10^3/uL (1.0-4.8) Monocytes # (Auto) 0.4 x10^3/uL (0.0-1.1) Eosinophils # (Auto) 0.3 x10^3/uL (0.0-0.7) Basophils # (Auto) 0.0 x10^3/uL (0.0-0.2) Sodium Level 140 mmol/L (136-145) Potassium Level 4.5 mmol/L (3.5-5.1) Chloride Level 101 mmol/L (98-107) Carbon Dioxide Level 30 mmol/L (21-32) Anion Gap 9 (6-14) Blood Urea Nitrogen 49 mg/dL (8-26) Creatinine 8.9 mg/dL (0.7-1.3) Estimated GFR (Cockcroft-Gault) 6.7 Glucose Level 153 mg/dL (70-99) Calcium Level 7.5 mg/dL (8.5-10.1) Glucose (Fingerstick) 115 mg/dL (70-99) 115 mg/dL (70-99) 154 mg/dL (70-99) Test 12/06/16 20:32 12/07/16 06:57 12/07/16 07:50 12/07/16 12:16 Glucose (Fingerstick) 81 mg/dL (70-99) 93 mg/dL (70-99) 87 mg/dL (70-99) White Blood Count 5.7 x10^3/uL (4.0-11.0) Red Blood Count 2.98 x10^6/uL (4.30-5.70) Hemoglobin 8.6 g/dL (13.0-17.5) Hematocrit 25.1 % (39.0-53.0) Mean Corpuscular Volume 84 fL (79-100) Mean Corpuscular Hemoglobin 29 pg (25-35) Mean Corpuscular Hemoglobin Concent 35 g/dL (31-37) Red Cell Distribution Width 15.4 % (11.5-14.5) Platelet Count 205 x10^3/uL (140-400) Neutrophils (%) (Auto) 60 % (31-73) Lymphocytes (%) (Auto) 25 % (24-48) Monocytes (%) (Auto) 9 % (0-9) Eosinophils (%) (Auto) 6 % (0-3) Basophils (%) (Auto) 1 % (0-3) Neutrophils # (Auto) 3.4 x10^3uL (1.8-7.7) Lymphocytes # (Auto) 1.4 x10^3/uL (1.0-4.8) Monocytes # (Auto) 0.5 x10^3/uL (0.0-1.1) Eosinophils # (Auto) 0.3 x10^3/uL (0.0-0.7) Basophils # (Auto) 0.0 x10^3/uL (0.0-0.2) Sodium Level 139 mmol/L (136-145) Potassium Level 4.6 mmol/L (3.5-5.1) Chloride Level 100 mmol/L (98-107) Carbon Dioxide Level 29 mmol/L (21-32) Anion Gap 10 (6-14) Blood Urea Nitrogen 61 mg/dL (8-26) Creatinine 10.6 mg/dL (0.7-1.3) Estimated GFR (Cockcroft-Gault) 5.5 Glucose Level 101 mg/dL (70-99) Calcium Level 8.1 mg/dL (8.5-10.1) Laboratory Tests Test 12/06/16 16:13 12/06/16 20:32 12/07/16 06:57 12/07/16 07:50 Glucose (Fingerstick) 154 mg/dL (70-99) 81 mg/dL (70-99) 93 mg/dL (70-99) White Blood Count 5.7 x10^3/uL (4.0-11.0) Red Blood Count 2.98 x10^6/uL (4.30-5.70) Hemoglobin 8.6 g/dL (13.0-17.5) Hematocrit 25.1 % (39.0-53.0) Mean Corpuscular Volume 84 fL (79-100) Mean Corpuscular Hemoglobin 29 pg (25-35) Mean Corpuscular Hemoglobin Concent 35 g/dL (31-37) Red Cell Distribution Width 15.4 % (11.5-14.5) Platelet Count 205 x10^3/uL (140-400) Neutrophils (%) (Auto) 60 % (31-73) Lymphocytes (%) (Auto) 25 % (24-48) Monocytes (%) (Auto) 9 % (0-9) Eosinophils (%) (Auto) 6 % (0-3) Basophils (%) (Auto) 1 % (0-3) Neutrophils # (Auto) 3.4 x10^3uL (1.8-7.7) Lymphocytes # (Auto) 1.4 x10^3/uL (1.0-4.8) Monocytes # (Auto) 0.5 x10^3/uL (0.0-1.1) Eosinophils # (Auto) 0.3 x10^3/uL (0.0-0.7) Basophils # (Auto) 0.0 x10^3/uL (0.0-0.2) Sodium Level 139 mmol/L (136-145) Potassium Level 4.6 mmol/L (3.5-5.1) Chloride Level 100 mmol/L (98-107) Carbon Dioxide Level 29 mmol/L (21-32) Anion Gap 10 (6-14) Blood Urea Nitrogen 61 mg/dL (8-26) Creatinine 10.6 mg/dL (0.7-1.3) Estimated GFR (Cockcroft-Gault) 5.5 Glucose Level 101 mg/dL (70-99) Calcium Level 8.1 mg/dL (8.5-10.1) Test 12/07/16 12:16 Glucose (Fingerstick) 87 mg/dL (70-99) Assessment/Plan ESRD--Left arm AV fistula functioning well. Swelling improved. Will wrap with LUIS FELIPE wrap. Ok to be discharged with home health care. Problems: SHANEKA SWEET DO Dec 07, 2016 14:34
[2016-12-07] MEDS ORDERED: DIPH25CA58 PO (14:48)
[2016-12-07 14:58] VITALS: BP 169/87
--- NOTE | 2016-12-07 16:31 | PDOC3 ---
Discharge Summary Visit Information Date of Admission: Dec 06, 2016 Date of Discharge: Dec 07, 2016 Admitting Diagnosis: left arm pain Final Diagnosis ANEMIA S/P LEFT ARM AVF WITH HEMATOMA ESRD HTN DM Brief Hospital Course Allergies Allergies Coded Allergies Type Severity Reaction Last Updated Verified No Known Drug Allergies 02/01/16 No Vital Signs Vital Signs Date Time Temp Pulse Resp B/P (MAP) Pulse Ox O2 Delivery O2 Flow Rate FiO2 12/07/16 15:12 95 Room Air 12/07/16 14:58 97.7 87 18 169/87 (114) 97.7 Lab Results Laboratory Tests Test 12/06/16 03:30 12/06/16 07:00 12/06/16 10:06 12/06/16 16:13 White Blood Count 5.2 x10^3/uL (4.0-11.0) Red Blood Count 2.20 x10^6/uL (4.30-5.70) Hemoglobin 6.3 g/dL (13.0-17.5) Hematocrit 18.0 % (39.0-53.0) Mean Corpuscular Volume 82 fL (79-100) Mean Corpuscular Hemoglobin 29 pg (25-35) Mean Corpuscular Hemoglobin Concent 35 g/dL (31-37) Red Cell Distribution Width 15.6 % (11.5-14.5) Platelet Count 196 x10^3/uL (140-400) Neutrophils (%) (Auto) 58 % (31-73) Lymphocytes (%) (Auto) 27 % (24-48) Monocytes (%) (Auto) 8 % (0-9) Eosinophils (%) (Auto) 6 % (0-3) Basophils (%) (Auto) 1 % (0-3) Neutrophils # (Auto) 3.0 x10^3uL (1.8-7.7) Lymphocytes # (Auto) 1.4 x10^3/uL (1.0-4.8) Monocytes # (Auto) 0.4 x10^3/uL (0.0-1.1) Eosinophils # (Auto) 0.3 x10^3/uL (0.0-0.7) Basophils # (Auto) 0.0 x10^3/uL (0.0-0.2) Sodium Level 140 mmol/L (136-145) Potassium Level 4.5 mmol/L (3.5-5.1) Chloride Level 101 mmol/L (98-107) Carbon Dioxide Level 30 mmol/L (21-32) Anion Gap 9 (6-14) Blood Urea Nitrogen 49 mg/dL (8-26) Creatinine 8.9 mg/dL (0.7-1.3) Estimated GFR (Cockcroft-Gault) 6.7 Glucose Level 153 mg/dL (70-99) Calcium Level 7.5 mg/dL (8.5-10.1) Glucose (Fingerstick) 115 mg/dL (70-99) 115 mg/dL (70-99) 154 mg/dL (70-99) Test 12/06/16 20:32 12/07/16 06:57 12/07/16 07:50 12/07/16 12:16 Glucose (Fingerstick) 81 mg/dL (70-99) 93 mg/dL (70-99) 87 mg/dL (70-99) White Blood Count 5.7 x10^3/uL (4.0-11.0) Red Blood Count 2.98 x10^6/uL (4.30-5.70) Hemoglobin 8.6 g/dL (13.0-17.5) Hematocrit 25.1 % (39.0-53.0) Mean Corpuscular Volume 84 fL (79-100) Mean Corpuscular Hemoglobin 29 pg (25-35) Mean Corpuscular Hemoglobin Concent 35 g/dL (31-37) Red Cell Distribution Width 15.4 % (11.5-14.5) Platelet Count 205 x10^3/uL (140-400) Neutrophils (%) (Auto) 60 % (31-73) Lymphocytes (%) (Auto) 25 % (24-48) Monocytes (%) (Auto) 9 % (0-9) Eosinophils (%) (Auto) 6 % (0-3) Basophils (%) (Auto) 1 % (0-3) Neutrophils # (Auto) 3.4 x10^3uL (1.8-7.7) Lymphocytes # (Auto) 1.4 x10^3/uL (1.0-4.8) Monocytes # (Auto) 0.5 x10^3/uL (0.0-1.1) Eosinophils # (Auto) 0.3 x10^3/uL (0.0-0.7) Basophils # (Auto) 0.0 x10^3/uL (0.0-0.2) Sodium Level 139 mmol/L (136-145) Potassium Level 4.6 mmol/L (3.5-5.1) Chloride Level 100 mmol/L (98-107) Carbon Dioxide Level 29 mmol/L (21-32) Anion Gap 10 (6-14) Blood Urea Nitrogen 61 mg/dL (8-26) Creatinine 10.6 mg/dL (0.7-1.3) Estimated GFR (Cockcroft-Gault) 5.5 Glucose Level 101 mg/dL (70-99) Calcium Level 8.1 mg/dL (8.5-10.1) Test 12/07/16 16:04 Glucose (Fingerstick) 154 mg/dL (70-99) Laboratory Tests Test 12/06/16 20:32 12/07/16 06:57 12/07/16 07:50 12/07/16 12:16 Glucose (Fingerstick) 81 mg/dL (70-99) 93 mg/dL (70-99) 87 mg/dL (70-99) White Blood Count 5.7 x10^3/uL (4.0-11.0) Red Blood Count 2.98 x10^6/uL (4.30-5.70) Hemoglobin 8.6 g/dL (13.0-17.5) Hematocrit 25.1 % (39.0-53.0) Mean Corpuscular Volume 84 fL (79-100) Mean Corpuscular Hemoglobin 29 pg (25-35) Mean Corpuscular Hemoglobin Concent 35 g/dL (31-37) Red Cell Distribution Width 15.4 % (11.5-14.5) Platelet Count 205 x10^3/uL (140-400) Neutrophils (%) (Auto) 60 % (31-73) Lymphocytes (%) (Auto) 25 % (24-48) Monocytes (%) (Auto) 9 % (0-9) Eosinophils (%) (Auto) 6 % (0-3) Basophils (%) (Auto) 1 % (0-3) Neutrophils # (Auto) 3.4 x10^3uL (1.8-7.7) Lymphocytes # (Auto) 1.4 x10^3/uL (1.0-4.8) Monocytes # (Auto) 0.5 x10^3/uL (0.0-1.1) Eosinophils # (Auto) 0.3 x10^3/uL (0.0-0.7) Basophils # (Auto) 0.0 x10^3/uL (0.0-0.2) Sodium Level 139 mmol/L (136-145) Potassium Level 4.6 mmol/L (3.5-5.1) Chloride Level 100 mmol/L (98-107) Carbon Dioxide Level 29 mmol/L (21-32) Anion Gap 10 (6-14) Blood Urea Nitrogen 61 mg/dL (8-26) Creatinine 10.6 mg/dL (0.7-1.3) Estimated GFR (Cockcroft-Gault) 5.5 Glucose Level 101 mg/dL (70-99) Calcium Level 8.1 mg/dL (8.5-10.1) Test 12/07/16 16:04 Glucose (Fingerstick) 154 mg/dL (70-99) Brief Hospital Course Mr. Esparza is a 36 old male, DC 2 days earlier for same, left arm pain, clot at AV fistula. better with sx control. LUIS FELIPE wrap, Dr. Jang followed from vascular, ESRD, HD Dm and htn control Discharge Information Condition at Discharge: Improved Follow Up: Weeks Disposition/Orders: D/C to Home Scheduled Amlodipine Besylate (Amlodipine Besylate), 10 MG PO DAILY, (Reported) Aspirin (Aspirin), 1 TAB PO DAILY Atorvastatin Calcium (Lipitor), 20 MG PO HS Carvedilol (Coreg), 1 TAB PO DAILY, (Reported) Hydrocodone/Apap 5-325 (Horton 5-325 Tablet), 1-2 TAB PO Q4HRS, (Reported) Insulin Aspart (Novolog Flexpen), 15 UNITS SQ TIDAC Insulin Detemir (Levemir Flextouch), 12 UNITS SQ QHS Lisinopril (Lisinopril), 20 MG PO DAILY Scheduled PRN Diphenhydramine Hcl (Benadryl), 1 CAP PO Q6HRS PRN for ITCHING Patient Instructions Patient Instructions time > 30 min RODERICK HUANG MD Dec 07, 2016 16:31
[2016-12-07] MEDS ORDERED: DARBEPOETIN ALFA 60 MCG/0.3 ML DISP.SYRIN. SQ SCH (21:00)
== END 2016-12-07 18:38 | disposition home health service (06) | DRG 314 ==
LOC: 5 NORTH 01:50
PROVIDERS: ADMIT Internal Medicine; ATTEND Internal Medicine
PROC: 30233N1 Transfusion of Nonautologous Red Blood Cells into Peripheral Vein, Percutaneous Approach (ICD-10-PCS; principal; 2016-12-06)
DX: T82.590A Other mechanical complication of surgically created arteriovenous fistula, initial encounter (principal); N18.6 End stage renal disease; I12.0 Hypertensive chronic kidney disease with stage 5 chronic kidney disease or end stage renal disease; D64.9 Anemia, unspecified; M79.602 Pain in left arm; E11.22 Type 2 diabetes mellitus with diabetic chronic kidney disease; Y83.2 Surgical operation with anastomosis, bypass or graft as the cause of abnormal reaction of the patient, or of later complication, without mention of misadventure at the time of the procedure; Z99.2 Dependence on renal dialysis; Y92.89 Other specified places as the place of occurrence of the external cause; Z79.82 Long term (current) use of aspirin
CPT/HCPCS: 36415; 80048; 82962; 85027; 85610; 85730; 86850; 86900; 86901; 86920; 87340; 87341; 93005; 94250; 94760; J1170; J1200; J1815; J2405; P9016

== ENCOUNTER 2021-05-15 22:16 | Emergency (ER) | payer OTHER, MEDICAID ==
[~2021-05-15] VITALS: Ht 185.4 cm; Wt 136.0 kg
[~2021-05-15 22:16] MED LIST changes: +AMLO-187 PO; +CARV12.5 PO; +DIPH25CA58 PO; +HYDR-3164 PO; -HYDR-971 PO; -LISI-334 PO; +LISI20TA18 PO; -METF-620 PO; +METF10007 PO
[2021-05-15 22:51] LABS: BASO % 1 % (0-3); EOS # 0.3 x10^3/uL (0.0-0.7); EOS % 4 % (0-3); HEMATOCRIT 22.1 % (39.0-53.0); HEMOGLOBIN 7.3 g/dL (13.0-17.5); LYMPH # 0.6 x10^3/uL (1.0-4.8); LYMPH % 8 % (24-48); MEAN CORPUSCULAR HEMOGLOBIN 30 pg (25-35); MEAN CORPUSCULAR HGB CONC 33 g/dL (31-37); MEAN CORPUSCULAR VOLUME 90 fL (79-100); MONO # 0.5 x10^3/uL (0.0-1.1); MONO % 7 % (0-9); NEUT # 6.3 x10^3/uL (1.8-7.7); NEUT % 81 % (31-73); PLATELET COUNT 227 x10^3/uL (140-400); RED BLOOD COUNT 2.47 x10^6/uL (4.30-5.70); RED CELL DISTRIBUTION WIDTH 14.9 % (11.5-14.5); WHITE BLOOD COUNT 7.8 x10^3/uL (4.0-11.0)
[2021-05-15] MEDS ORDERED: LIDOCAINE 2% JELLY 6ML IN APPLICATOR. MM ONE (23:00)
[2021-05-15 23:01] LABS: CALCIUM 8.2 mg/dL (8.5-10.1); GFR 5.8; POTASSIUM 5.1 mmol/L (3.5-5.1)
[2021-05-15 23:07] LABS: ALBUMIN 1.5 g/dL (3.4-5.0); ALBUMIN/GLOBULIN RATIO 0.4 (1.0-1.7); TOTAL BILIRUBIN 0.2 mg/dL (0.2-1.0); TOTAL PROTEIN 5.4 g/dL (6.4-8.2)
--- NOTE | 2021-05-15 23:32 | RAD ---
EXAM: AP View of the chest DATE: 05/15/2021 10:35 PM INDICATION: Reason: sob, dialysis patient / Spl. Instructions: / History: COMPARISON: No Prior FINDINGS: Cardiomegaly with parahilar and lung base airspace opacities likely consolidative process such as pne umonia. Eventration right hemidiaphragm. Bibasilar airspace opacities. Bibasilar pleural effusions. No pneumothorax. IMPRESSION: Cardiomegaly with bilateral parenchymal opacities and pleural effusions likely pulmonary edema. Multi focal consolidative process could also have this appearance. Electronically signed by: Jose Loza MD (05/15/2021 11:30 PM) BELEN
--- NOTE | 2021-05-16 00:15 | PHYS DOC ---
Past Medical History Past Medical History: Renal Failure Additional Past Medical Histor: ESRD on HD Past Surgical History: Pacemaker, Other Additional Past Surgical Histo: stent placement x2, L eye Smoking Status: Never Smoker General Adult EDM: Chief Complaint: SHORTNESS OF BREATH HPI: HPI: Patient is a 40 year old male with history of ESRD on HD who presents with shortness of breath. Patient states this is because he is missed dialysis. He is typically on M, W, F dialysis. Last full session was on Wednesday of last week. He missed Wednesday and Wednesday due to a transportation issue. Earlier this morning he was dialyzed for 2 of 4 scheduled hours. He had nausea, vomiting that limited his dialysis session. States that he has chronic abdominal pain, and occasional nausea that triggered this today. His nausea/vomiting has improved since then, but has become more short of breath. He called the dialysis center, and they stated if his symptoms did not improve that he should present to the emergency department for potential dialysis. Review of Systems: Review of Systems: Constitutional: Denies fever or chills. [] Eyes: Denies change in visual acuity. [] HENT: Denies nasal congestion or sore throat. [] Respiratory: Reports shortness of breath Cardiovascular: Denies chest pain or edema. [] GI: Reports now resolved nausea, vomiting. Reports chronic/unchanged abdominal pain. : Reports anuria. 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 Musculoskeletal: Denies back pain or joint pain. [] Integument: Denies rash. [] Neurologic: Denies headache, focal weakness or sensory changes. [] Endocrine: Denies polyuria or polydipsia. [] Lymphatic: Denies swollen glands. [] Psychiatric: Denies depression or anxiety. [] Heart Score: C/O Chest Pain: No Current Medications: Current Medications Medications (Trade) Dose Ordered Sig/Damien Start Time Stop Time Status Last Admin Dose Admin Lidocaine HCl (Glydo (Lidocaine) Jelly) 1 daljit 1X ONCE 05/15/21 23:00 05/15/21 23:01 DC 05/15/21 23:16 1 DALJIT Allergies: Allergies: Allergies Coded Allergies Type Severity Reaction Last Updated Verified No Known Drug Allergies 02/01/16 No Physical Exam: PE: Constitutional: Chronically ill-appearing, appears older than stated age HENT: Normocephalic, atraumatic, bilateral external ears normal, oropharynx moist, no oral exudates, nose normal. [] Eyes: PERRLA, EOMI, conjunctiva normal, no discharge. [] Neck: Normal range of motion, no tenderness, supple, no stridor. [] Cardiovascular:Heart rate regular rhythm, no murmur [] Lungs & Thorax: Normal respiratory effort, limited evaluation due to habitus, but no obvious crackles noted. Abdomen: Protuberant abdomen (patient states is baseline), mildly tender in epigastrium, no guarding or rebound. : Tip of glans with melgoza discoloration (patient states is baseline) Skin: Warm, dry, no erythema, no rash. [] Back: No tenderness, no CVA tenderness. [] Extremities: Left lower extremity amputation. No significant edema. Neurologic: Alert and oriented X 3, normal motor function, normal sensory function, no focal deficits noted. [] Psychologic: Affect normal, judgement normal, mood normal. [] Current Patient Data: Labs: Laboratory Tests Test 05/15/21 22:40 White Blood Count 7.8 x10^3/uL (4.0-11.0) Red Blood Count 2.47 x10^6/uL (4.30-5.70) L Hemoglobin 7.3 g/dL (13.0-17.5) L Hematocrit 22.1 % (39.0-53.0) L Mean Corpuscular Volume 90 fL (79-100) Mean Corpuscular Hemoglobin 30 pg (25-35) Mean Corpuscular Hemoglobin Concent 33 g/dL (31-37) Red Cell Distribution Width 14.9 % (11.5-14.5) H Platelet Count 227 x10^3/uL (140-400) Neutrophils (%) (Auto) 81 % (31-73) H Lymphocytes (%) (Auto) 8 % (24-48) L Monocytes (%) (Auto) 7 % (0-9) Eosinophils (%) (Auto) 4 % (0-3) H Basophils (%) (Auto) 1 % (0-3) Neutrophils # (Auto) 6.3 x10^3/uL (1.8-7.7) Lymphocytes # (Auto) 0.6 x10^3/uL (1.0-4.8) L Monocytes # (Auto) 0.5 x10^3/uL (0.0-1.1) Eosinophils # (Auto) 0.3 x10^3/uL (0.0-0.7) Basophils # (Auto) 0.0 x10^3/uL (0.0-0.2) Sodium Level 135 mmol/L (136-145) L Potassium Level 5.1 mmol/L (3.5-5.1) Chloride Level 96 mmol/L (98-107) L Carbon Dioxide Level 27 mmol/L (21-32) Anion Gap 12 (6-14) Blood Urea Nitrogen 43 mg/dL (8-26) H Creatinine 10.0 mg/dL (0.7-1.3) H Estimated GFR (Cockcroft-Gault) 5.8 BUN/Creatinine Ratio 4 (6-20) L Glucose Level 275 mg/dL (70-99) H Calcium Level 8.2 mg/dL (8.5-10.1) L Total Bilirubin 0.2 mg/dL (0.2-1.0) Aspartate Amino Transferase (AST) 17 U/L (15-37) Alanine Aminotransferase (ALT) 9 U/L (16-63) L Alkaline Phosphatase 117 U/L (46-116) H Total Protein 5.4 g/dL (6.4-8.2) L Albumin 1.5 g/dL (3.4-5.0) L Albumin/Globulin Ratio 0.4 (1.0-1.7) L Lipase 71 U/L (73-393) L Laboratory Tests 05/15/21 22:40 Laboratory Tests 05/15/21 22:40 Vital Signs: Vital Signs Date Time Temp Pulse Resp B/P (MAP) Pulse Ox O2 Delivery O2 Flow Rate FiO2 05/15/21 22:21 98.2 96 20 159/64 (95) 98 Room Air 98.2 EKG: EKG: [] Radiology/Procedures: Radiology/Procedures: [] Impression: [facility] [address] [place] [address] IMAGING REPORT Signed PATIENT: ADRIANA GARLAND ACCOUNT: [id number] : 1980 LOCATION: ER AGE: 40 SEX: M EXAM STATUS: REG ER ORD. PHYSICIAN: FANG IDAS MD REASON: sob, dialysis patient PROCEDURE: CHEST AP ONLY EXAM: AP View of the chest DATE: 05/15/2021 10:35 PM INDICATION: Reason: sob, dialysis patient / Spl. Instructions: / History: COMPARISON: No Prior FINDINGS: Cardiomegaly with parahilar and lung base airspace opacities likely consolidative process such as pneumonia. Eventration right hemidiaphragm. Bibasilar airspace opacities. Bibasilar pleural effusions. No pneumothorax. IMPRESSION: Cardiomegaly with bilateral parenchymal opacities and pleural effusions likely pulmonary edema. Multifocal consolidative process could also have this appearance. Electronically signed by: Jose Castillo MD (05/15/2021 11:30 PM) [facility] DICTATED and SIGNED BY: JOSE CASTILLO MD DATE: 05/15/21 [id number] 0 Course & Med Decision Making: Course & Med Decision Making Pertinent Labs and Imaging studies reviewed. (See chart for details) Patient 40-year-old male with history of ESRD on HD (M/W/F) who presents with shortness of breath after several missed dialysis sessions in the past week, and an abbreviated dialysis session today. On arrival is afebrile, hemodynamically stable. Satting well on room air. No evidence of respiratory distress on examination. Labs and CXR were obtained to determine if he has any urgent/emergent needs for dialysis in the hospital. Chest x-ray with some suggestion of pulmonary edema, but given his stable O2 sats and electrolytes feel he is safe for discharge with dialysis later today in outpatient setting. COVID sent and is pending. He complains of chronic upper abdominal pain, that has had an extensive work-up including endoscopies and CT imaging without a cause identified. This is unchanged. No acute findings were seen on CMP. He does have anemia, that daljit ears to be chronic. Does not require blood transfusion at this time. 05/16/2021 0012 Ann Disclaimer: Ann Disclaimer: This electronic medical record was generated, in whole or in part, using a voice recognition dictation system. Departure Departure Impression: Primary Impression: ESRD (end stage renal disease) Disposition: HOME / SELF CARE / HOMELESS Condition: STABLE Referrals: SOY MAYER MD (PCP) Additional Instructions: It is important that you get your outpatient dialysis later today. We did not find an indication to keep you in the hospital for dialysis tonight. FANG DIAS MD May 16, 2021 00:15
[2021-05-16] MEDS ORDERED: LIDOCAINE 2% JELLY 6ML IN APPLICATOR. MM ONE (01:00)
[2021-05-16 02:00] VITALS: BP 160/77
--- NOTE | 2021-05-16 08:33 | EKG ---
[facility] [address] [place] [address] Test Date: 2021-05-15 Test Time: 22:39:47 Pat Name: ADRIANA GARLAND Department: Room: Gender: M Transactional Attorney: : 1980 Requested By: FANG DIAS Order Number: [id number] Reading MD: Zion Whitney Measurements Intervals [place] Rate: 94 P: 0 CA: 112 QRS: -21 QRSD: 84 T: 228 QT: 350 QTc: 443 Interpretive Statements SINUS RHYTHM LEFTWARD AXIS T ABNORMALITY IN INFERIOR LEADS Electronically Signed On 05-16-2021 15:28:39 SHIFT SUPERVISOR FILM PROCESSING by Zion Whitney
--- NOTE | 2021-05-16 15:39 | NUR ---
IP: Informed pt of negative covid test. Pt verbalized understanding.
== END 2021-05-16 03:20 | disposition home or self-care (01) ==
LOC: ER 22:16
DX: N18.6 End stage renal disease (principal); Z99.2 Dependence on renal dialysis; Z95.5 Presence of coronary angioplasty implant and graft; Z95.0 Presence of cardiac pacemaker
CPT/HCPCS: 36415; 71045; 80053; 83690; 85025; 87426; 93005; 99285; U0003; U0005

== ENCOUNTER 2021-06-15 14:00 | Inpatient (IN) | payer OTHER, MEDICAID ==
[~2021-06-15] VITALS: Ht 185.4 cm; Wt 140.1 kg
[2021-06-15] VITALS (8 sets, daily range): BP systolic 71–109; BP diastolic 36–83
--- NOTE | 2021-06-15 18:30 | NUR ---
Patient came from [facility] via EMT. Initial VS and weight taken, hooked to security monitor. Belongings noted with patient. Dialysis Nurse at bedside, took consent for dialysis and started as ordered. Left arm precaution observed.
[2021-06-15] MEDS ORDERED: IV NORMAL SALINE 1000ML BAG 1,000 ML IV PRN ×2 (19:15)
[2021-06-15] MEDS ORDERED: ALBUMIN HUMAN 25% 200 ML IV PRN (19:15)
[2021-06-15] MEDS ORDERED: DIALYSIS PATIENT. MC PRN ×2 (19:15)
[2021-06-15] MEDS ORDERED: ASPI-886 PO (19:52)
[2021-06-15] MEDS ORDERED: ATOR40TA59 PO (19:52)
[2021-06-15] MEDS ORDERED: QUET25TA5 PO (19:52)
[2021-06-15] MEDS ORDERED: CARV25TA2 PO (19:52)
[2021-06-15] MEDS ORDERED: HYDR25TA PO (19:52)
[2021-06-15] MEDS ORDERED: GABA300C18 PO (19:52)
[2021-06-15] MEDS ORDERED: VIT1TABL71 PO (19:52)
[2021-06-15] MEDS ORDERED: CALC667T4 PO (19:52)
[2021-06-15] MEDS ORDERED: INSU100I13 SQ (19:52)
[2021-06-15] MEDS ORDERED: OXYC5CAP PO (19:52)
[2021-06-15] MEDS ORDERED: CLOP75TA PO (19:52)
[2021-06-15] MEDS ORDERED: CLON0.1T PO (19:52)
[2021-06-15] MEDS ORDERED: SUCR500T PO (19:52)
[2021-06-15] MEDS ORDERED: SERT100T PO (19:52)
[2021-06-15] MEDS ORDERED: PANT40TA6 PO (19:52)
[2021-06-15] MEDS ORDERED: FURO80TA3 PO (19:52)
[2021-06-15] MEDS ORDERED: HYDR100T24 PO (19:52)
[2021-06-15] MEDS ORDERED: DEXTROSE 50% 25 GM / 50ML DISP.SYRIN. IV PRN (20:45)
[2021-06-15 21:20] LABS: CALCIUM 7.8 mg/dL (8.5-10.1); CREATININE 8.2 mg/dL (0.7-1.3); GFR 7.3; POTASSIUM 5.1 mmol/L (3.5-5.1)
[2021-06-15] MEDS ORDERED: hydrOXYzine 25 MG TABLET PO PRN (22:30)
[2021-06-15] MEDS ORDERED: cloNIDine HCL 0.1 MG TABLET PO PRN (22:30)
[2021-06-15] MEDS: INSULIN GLARGINE SYRINGE. SQ SCH (23:00)
[2021-06-15] MEDS: GABAPENTIN 300 MG CAPSULE. PO SCH (23:00)
[2021-06-15] MEDS: ATORVASTATIN CALCIUM 40 MG TABLET. PO SCH (23:00)
--- NOTE | 2021-06-15 23:08 | NUR ---
Patient transferred to [facility]. Okay to transfer per Dr. Baca and Dr. Burkett. Home medications restarted, list obtained from [facility]. Patient mostly moans when asked a question. Admission was completed to the best of my ability due to patient unwillingness to answer questions.
[2021-06-16 03:00] VITALS: BP 92/60
[2021-06-16] MEDS: oxyCODONE IR 5 MG TABLET PO PRN (05:54)
[2021-06-16 07:00] VITALS: BP 102/39
[2021-06-16] MEDS ORDERED: DIALYSIS PATIENT. MC PRN ×2 (07:00)
[2021-06-16] MEDS ORDERED: IV NORMAL SALINE 1000ML BAG 1,000 ML IV PRN ×2 (07:00)
[2021-06-16] MEDS: CARVEDILOL 12.5 MG TABLET. PO SCH ×2 (08:00→18:18)
[2021-06-16] MEDS: INSULIN LISPRO 300 UNITS/3 ML VIAL. SQ SCH ×3 (08:00→17:00)
[2021-06-16] MEDS: CLOPIDOGREL BISULFATE 75 MG TABLET PO SCH (08:59)
[2021-06-16] MEDS: ASPIRIN ENTERIC COATED 81 MG TABLET.DR. PO SCH (08:59)
[2021-06-16] MEDS: QUEtiapine 25 MG TABLET. PO SCH (08:59)
[2021-06-16] MEDS: FOLIC/VIT B COMP W-C (RENAL) TABLET. PO SCH (08:59)
[2021-06-16] MEDS: SERTRALINE 50 MG TABLET. PO SCH (08:59)
[2021-06-16] MEDS: CALCIUM ACETATE 667 MG CAPSULE PO SCH ×3 (09:00→18:18)
[2021-06-16] MEDS: SUCROFERRIC OXYHYDROXIDE PO SCH ×3 (09:00→19:21)
[2021-06-16] MEDS: FUROSEMIDE 80 MG TABLET. PO SCH (09:00)
[2021-06-16] MEDS: PANTOPRAZOLE 40 MG TABLET.DR. PO SCH (09:00)
--- NOTE | 2021-06-16 11:20 | HP ---
DATE OF SERVICE: 06/16/2021 ADMIT DATE: 06/15/2021 HISTORY OF PRESENT ILLNESS: The patient is a 40-year-old male patient who presented to the Emergency Room of [facility] with a chief complaint of right thigh and hip pain that has been going on for almost 2 weeks now 11/07, dull and achy in nature. He states that he has brought up to his primary care physician and he was in the hospital last week and brought it up, but nobody has done anything about it. Denied any recent travel, trauma, fever, chest pain, shortness of breath, diarrhea, or blood in the stool. He is completely anuric and hemodialysis dependent. He apparently was extensively investigated in the Emergency Room, has had lab work done and his chemistry showed that he has a life-threatening hyperkalemia with a serum potassium of 9.5. His white cell count was slightly elevated at 13.5. His arterial blood gases showed that he was slightly acidotic and his D-dimer was high at 4.25. His influenza A and B were negative and his coronavirus by PCR was positive. He was treated in the Emergency Room with multiple rounds of calcium gluconate, sodium bicarbonate, insulin and glucose. He refused Kayexalate. We managed to bring his serum calcium down to 7.2 and eventually, he was transferred to [facility] ICU where he was dialyzed and eventually transferred to the floor. According to him, the patient was last dialyzed about 3 days ago. He normally dialyzes on Wednesday, Wednesday and Wednesday. He stated that he has a home caregiver and was unable to come to the dialysis because he has severe flu. He also has pain in his legs and also in his penis that has been going on for months. He was supposed to see a urologist, but has not done that yet. PAST MEDICAL HISTORY: Significant for hypertension, poorly controlled type 2 diabetes mellitus and diabetic peripheral neuropathy and diabetic retinopathy. He now has end-stage renal disease, on hemodialysis Wednesday, Wednesday, Wednesday. PAST SURGICAL HISTORY: Significant for left below-knee amputation and arteriovenous fistula creation on the left arm. FAMILY HISTORY: Has 2 younger brothers with asthma. Father has congestive heart failure. Mother, diabetes. SOCIAL HISTORY: The patient lives alone at home. He has a caregiver. REVIEW OF SYSTEMS: As per history of present illness. ALLERGIES: HE IS ALLERGIC TO METOCLOPRAMIDE. I am unable to complete my dictation as computers are down. The patient basically came with severe hyperkalemia that is life-threatening. He was transferred to [facility] to the ICU where he was dialyzed and his post-dialysis potassium was 5.1. DARY DR: Nelson TID: [id number]
[2021-06-16 11:35] LABS: CALCIUM 7.7 mg/dL (8.5-10.1); CREATININE 8.5 mg/dL (0.7-1.3)
--- NOTE | 2021-06-16 11:37 | NUR ---
SW following. Discussed with RN, pt from home, room air, ada diet, COVID-19 positive at [facility] (RN notified). SW trying to determine where pt does dialysis to check on alternate facility due to COVID status. KIM will continue to follow. Addendum: 06/16/21 at 1201 by ANGELO ALVAREZ [facility]. Kimber at [facility] is trying to arrange an alternate location - reaching out to Renal, awaiting confirmation of whether pt is being discharged today or not.
--- NOTE | 2021-06-16 11:49 | PDOC2 ---
CONSULT Date of Consult Date of Consult DATE: 06/16/21 TIME: 11:48 Reason for Consult Reason for Consult: ESRD Source Source: Chart review History of Present Illness Reason for Visit: Patient is a 40-year-old male patient who presented to the Emergency Room of [facility] with a chief complaint of right thigh and hip pain that has been going on for almost 2 weeks now 6/10, dull and achy in nature. He states that he has brought up to his primary care physician and he was in the hospital last week and brought it up, but nobody has done anything about it. Denied any recent trauma, fever, chest pain, shortness of breath, diarrhea. In the Emergency Room, lab work showed serum potassium of 9.5. He was treated in the Emergency Room with multiple rounds of calcium gluconate, sodium bicarbonate, insulin and glucose. He refused Kayexalate. Calcium came down to 7.2 and he was transferred to [facility] . He was dialyzed emergently last night to the floor. According to him, the patient was last dialyzed about 3 days ago. He missed 1 treatment ,he his home caregiver couldnt bring him because he has severe flu. He also has pain in his legs and also in his penis that has been going on for months. He was supposed to see a urologist, but has not done that yet. COVID by PCR was positive. Past Medical History Cardiovascular: HTN Family History Family History Has 2 younger brothers with asthma. Father has congestive heart failure. Mother, diabetes. Social History Social History The patient lives alone at home. He has a caregiver. ALCOHOL: none Drugs: None Current Medications Current Medications Current Medications Sodium Chloride 1,000 ml @ 1,000 mls/hr Q1H PRN IV hypotension; Start 06/15/21 at 19:15; Stop 06/16/21 at 01:14; Status DC Albumin Human 200 ml @ 200 mls/hr 1X PRN PRN IV Hypotension Last administered on 06/15/21at 19:05; Start 06/15/21 at 19:15; Stop 06/16/21 at 01:14; Status DC Sodium Chloride 1,000 ml @ 400 mls/hr Q2H30M PRN IV PATENCY; Start 06/15/21 at 19:15; Stop 06/16/21 at 07:14; Status DC Info (PHARMACY MONITORING -- do not chart) 1 each PRN DAILY PRN MC SEE COMMENTS; Start 06/15/21 at 19:15; Status Cancel Info (PHARMACY MONITORING -- do not chart) 1 each PRN DAILY PRN MC SEE COMMENTS; Start 06/15/21 at 19:15; Status Cancel Insulin Human Lispro (HumaLOG) 0-7 UNITS TIDWMEALS SQ ; Start 06/16/21 at 08:00 Dextrose (Dextrose 50%-Water Syringe) 12.5 gm PRN Q15MIN PRN IV SEE COMMENTS; Start 06/15/21 at 20:45 Aspirin (Ecotrin) 81 mg DAILY PO Last administered on 06/16/21at 08:59; Start 06/16/21 at 09:00 Atorvastatin Calcium (Lipitor) 40 mg QHS PO ; Start 06/15/21 at 23:00 Clonidine HCl (Catapres) 0.1 mg PRN Q8HRS PRN PO HTN; Start 06/15/21 at 22:30 Clopidogrel Bisulfate (Plavix) 75 mg DAILY PO Last administered on 06/16/21at 08:59; Start 06/16/21 at 09:00 Furosemide (Lasix) 80 mg DAILY PO Last administered on 06/16/21at 09:00; Start 06/16/21 at 09:00 Gabapentin (Neurontin) 300 mg QHS PO ; Start 06/15/21 at 23:00 Hydroxyzine HCl (Atarax) 25 mg PRN Q6HRS PRN PO ALLERGIES; Start 06/15/21 at 22:30 Pantoprazole Sodium (Protonix) 40 mg DAILYAC PO Last administered on 06/16/21at 09:00; Start 06/16/21 at 07:30 Quetiapine Fumarate (SEROquel) 25 mg DAILY PO Last administered on 06/16/21at 08:59; Start 06/16/21 at 09:00 Calcium Acetate (Phoslo) 667 mg TIDWMEALS PO Last administered on 06/16/21at 09:00; Start 06/16/21 at 08:00 Carvedilol (Coreg) 50 mg BIDWMEALS PO ; Start 06/16/21 at 08:00 Hydralazine HCl (Apresoline) 100 mg BID PO ; Start 06/15/21 at 23:00 Insulin Glargine (Lantus Syringe) 32 unit QHS SQ ; Start 06/15/21 at 23:00 Oxycodone HCl (Roxicodone) 5 mg PRN Q4HRS PRN PO SEVERE PAIN 7-10 Last administered on 06/16/21at 05:54; Start 06/15/21 at 22:45 Sertraline HCl (Zoloft) 100 mg DAILY PO Last administered on 06/16/21at 08:59; Start 06/16/21 at 09:00 Non-Formulary Medication (Sucroferric Oxyhydroxide (Velphoro)) 1 tab TID PO ; Start 06/16/21 at 09:00; Status UNV Vitamin B Complex/ Vitamin C (Yajaira-Allan) 1 tab DAILY PO Last administered on 06/16/21at 08:59; Start 06/16/21 at 09:00 Sodium Chloride 1,000 ml @ 1,000 mls/hr Q1H PRN IV hypotension; Start 06/16/21 at 07:00; Stop 06/16/21 at 12:59 Sodium Chloride 1,000 ml @ 400 mls/hr Q2H30M PRN IV PATENCY; Start 06/16/21 at 07:00; Stop 06/16/21 at 18:59 Info (PHARMACY MONITORING -- do not chart) 1 each PRN DAILY PRN MC SEE COMMENTS; Start 06/16/21 at 07:00; Status Cancel Info (PHARMACY MONITORING -- do not chart) 1 each PRN DAILY PRN MC SEE COMMENTS; Start 06/16/21 at 07:00 Active Scripts Active Reported Calcium Acetate 667 Mg Tablet 1 Tab PO TID 30 Days Zoloft (Sertraline Hcl) 100 Mg Tablet 1 Tab PO DAILY Velphoro (Sucroferric Oxyhydroxide) 500 Mg Tab.chew 1 Tab PO TID 30 Days Seroquel (Quetiapine Fumarate) 25 Mg Tablet 1 Tab PO DAILY Yajaira-Allan Rx Tablet (Vit B Cmplx 3/Fa/Vit C/Biotin) 1 Each Tablet 1 Tab PO DAILY 30 Days Clopidogrel (Clopidogrel Bisulfate) 75 Mg Tablet 1 Tab PO DAILY Pantoprazole Sodium 40 Mg Tablet.dr 40 Mg PO DAILY Oxycodone Hcl 5 Mg Capsule 5 Mg PO PRN Q4HRS PRN Lantus Solostar (Insulin Glargine,Hum.rec.anlog) 100 Unit/1 Ml Insuln.pen 32 Unit SQ QHS Hydroxyzine Hcl 25 Mg Tablet 1 Tab PO PRN Q6HRS PRN Hydralazine Hcl 100 Mg Tablet 1 Tab PO BID Gabapentin (Gabapentin) 300 Mg Capsule 300 Mg PO TID Furosemide 80 Mg Tablet 1 Tab PO DAILY Clonidine Hcl 0.1 Mg Tablet 0.1 Mg PO PRN Q8HRS PRN Carvedilol 25 Mg Tablet 50 Mg PO BIDWMEALS Atorvastatin Calcium 40 Mg Tablet 1 Tab PO QHS Aspirin Ec (Aspirin) 81 Mg Tablet.dr 1 Tab PO DAILY Allergies Allergies: Coded Allergies: metoclopramide (Verified Allergy, Intermediate, 06/15/21) ROS Review of System As per HPI, rest of the ROS is negative Physical Exam Physical Exam GENERAL: NAD HEEN OM moist NECK: Supple. HEART: S1S2 LUNGS: Clear to auscultation, Non labored ABDOMEN: soft, nontender.Obese NEUROLOGIC: awake, alert,Grossly normal No Rodriguez DERM No Rash Vital Signs Vital Signs Date Time Temp Pulse Resp B/P (MAP) Pulse Ox O2 Delivery O2 Flow Rate FiO2 06/16/21 07:00 99.6 105 20 102/39 (60) 97 Room Air 99.6 Assessment & Plan ESRD- On HD MWF, seen during dialysis. Tolerating well .Continue as ordered. José Antonio CANO . He has been on Dialysis since 2017 (per Dr Thomas note in [facility] records) HyperKalemia POA - Dialyzed emergently last night .Dialysis today per his schedule Anemia- Hgb 7.2 @ [facility] Hypertension. Poorly controlled type 2 diabetes mellitus, diabetic retinopathy. Ascites and nonalcoholic steatohepatitis.Per pt required Paracentesis Peritoneal nodularities and greater omental fat induration --can be seen in peritoneal carcinomatosis. Recommend diagnostic paracentesis cytology. Similar multiple prominent to mildly enlarged upper abdominal, retroperitoneal and bilateral pelvic lymph node indeterminate. Defer to Primary Labs Labs Laboratory Tests Test 06/15/21 19:42 06/16/21 07:30 06/16/21 10:41 Sodium Level 136 mmol/L (136-145) 132 mmol/L (136-145) Potassium Level 5.1 mmol/L (3.5-5.1) 6.0 mmol/L (3.5-5.1) Chloride Level 100 mmol/L (98-107) 95 mmol/L (98-107) Carbon Dioxide Level 27 mmol/L (21-32) 25 mmol/L (21-32) Anion Gap 9 (6-14) 12 (6-14) Blood Urea Nitrogen 51 mg/dL (8-26) 49 mg/dL (8-26) Creatinine 8.2 mg/dL (0.7-1.3) 8.5 mg/dL (0.7-1.3) Estimated GFR (Cockcroft-Gault) 7.3 7.0 Glucose Level 79 mg/dL (70-99) 117 mg/dL (70-99) Calcium Level 7.8 mg/dL (8.5-10.1) 7.7 mg/dL (8.5-10.1) Glucose (Fingerstick) 91 mg/dL (70-99) Laboratory Tests Test 06/15/21 19:42 06/16/21 07:30 06/16/21 10:41 Sodium Level 136 mmol/L (136-145) 132 mmol/L (136-145) Potassium Level 5.1 mmol/L (3.5-5.1) 6.0 mmol/L (3.5-5.1) Chloride Level 100 mmol/L (98-107) 95 mmol/L (98-107) Carbon Dioxide Level 27 mmol/L (21-32) 25 mmol/L (21-32) Anion Gap 9 (6-14) 12 (6-14) Blood Urea Nitrogen 51 mg/dL (8-26) 49 mg/dL (8-26) Creatinine 8.2 mg/dL (0.7-1.3) 8.5 mg/dL (0.7-1.3) Estimated GFR (Cockcroft-Gault) 7.3 7.0 Glucose Level 79 mg/dL (70-99) 117 mg/dL (70-99) Calcium Level 7.8 mg/dL (8.5-10.1) 7.7 mg/dL (8.5-10.1) Glucose (Fingerstick) 91 mg/dL (70-99) Review All relevant outside records, renal labs, imaging studies, telemetry/EKG's were reviewed. Images Images Xray of the hip and right femur - no acute fracture or dislocation, mild degenerative changes are seen in the hips bilaterally and the right knee vascular calcifications are noted. CT scan of the abdomen and pelvis showed bibasilar patchy airspace opacities, may represent atelectasis/scarring versus infiltrate, cardiomegaly. Moderate to large amount of abdominopelvic ascites, slightly decreased since prior exam, ill-defined peritoneal-based soft tissue nodules in the left abdomen along the paracolic gutters and changed fat induration in the left upper abdominal mesentery and greater omentum. Overall, findings may relate to fluid overload, cardiac disease; however, peritoneal nodularities and greater omental fat induration can be seen in peritoneal carcinomatosis. Recommend diagnostic paracentesis cytology. Similar multiple prominent to mildly enlarged upper abdominal, retroperitoneal and bilateral pelvic lymph node indeterminate, mild hepatomegaly with diffuse steatosis, other chronic incidental finding. chest x-ray- cardiomegaly with bibasilar patchy airspace opacities, may represent atelectasis, scarring versus infiltrate. CHANI DANIELLE MD Jun 16, 2021 11:48
[2021-06-16 15:00] VITALS: BP 112/62
--- NOTE | 2021-06-16 15:36 | HP ---
DATE OF SERVICE: 06/16/2021 ADMIT DATE: 06/15/2021 HISTORY OF PRESENT ILLNESS: The patient is a 40-year-old male patient who presented to the Emergency Room of [facility] with a chief complaint of right thigh and hip pain that has been going on for almost 2 weeks now 11/07, dull and achy in nature. He states that he has brought up to his primary care physician and he was in the hospital last week and brought it up, but nobody has done anything about it. Denied any recent travel, trauma, fever, chest pain, shortness of breath, diarrhea, or blood in the stool. He is completely anuric and hemodialysis dependent. He apparently was extensively investigated in the Emergency Room, has had lab work done and his chemistry showed that he has a life-threatening hyperkalemia with a serum potassium of 9.5. His white cell count was slightly elevated at 13.5. His arterial blood gases showed that he was slightly acidotic and his D-dimer was high at 4.25. His influenza A and B were negative and his coronavirus by PCR was positive. He was treated in the Emergency Room with multiple rounds of calcium gluconate, sodium bicarbonate, insulin and glucose. He refused Kayexalate. We managed to bring his serum calcium down to 7.2 and eventually, he was transferred to [facility] ICU where he was dialyzed and eventually transferred to the floor. According to him, the patient was last dialyzed about 3 days ago. He normally dialyzes on Wednesday, Wednesday and Wednesday. He stated that he has a home caregiver and was unable to come to the dialysis because he has severe flu. He also has pain in his legs and also in his penis that has been going on for months. He was supposed to see a urologist, but has not done that yet. PAST MEDICAL HISTORY: Significant for hypertension, poorly controlled type 2 diabetes mellitus and diabetic peripheral neuropathy and diabetic retinopathy. He now has end-stage renal disease, on hemodialysis Wednesday, Wednesday, Wednesday. PAST SURGICAL HISTORY: Significant for left below-knee amputation and arteriovenous fistula creation on the left arm. FAMILY HISTORY: Has 2 younger brothers with asthma. Father has congestive heart failure. Mother, diabetes. SOCIAL HISTORY: The patient lives alone at home. He has a caregiver. REVIEW OF SYSTEMS: As per history of present illness. ALLERGIES: HE IS ALLERGIC TO METOCLOPRAMIDE. I am unable to complete my dictation as computers are down. The patient basically came with severe hyperkalemia that is life-threatening. He was transferred to [facility] to the ICU where he was dialyzed and his post-dialysis potassium was 5.1. ADDENDUM The patient was brought to the Emergency Room of [facility], was found to have life-threatening hyperkalemia. Eventually, he was admitted to transfer to [facility] ICU and to be dialyzed. PHYSICAL EXAMINATION: GENERAL: On arrival to the Emergency Room, he was pale, but not jaundiced or cyanosed, no lymphadenopathy, no thyromegaly, no jugular venous distention. No lower limb edema. VITAL SIGNS: His heart rate was 70, blood pressure was 150/80, temperature was 98.1, respiratory rate 20, and oxygen saturation was 99% on room air. HEAD, EYES, EARS, NOSE AND THROAT: Normocephalic and atraumatic. NECK: Supple. HEART: Normal first and second heart sounds, no gallop or murmur. CHEST: Clear to auscultation, no crepitation or rhonchi. ABDOMEN: Distended, soft, nontender. NEUROLOGIC: He was awake, alert, responding. He has normal motor function. His affect, judgment and mood were normal. LABORATORY WORK: On arrival to the Emergency Room showed a serum sodium of 128, potassium 9.5, chloride 90, bicarbonate 16, anion gap of 22, a BUN of 88, creatinine 14.7. Estimated GFR was 3.7, glucose 144. Lactic acid was 1.1, calcium was 8.3, magnesium 2.2. Total bilirubin, AST, ALT normal. Alkaline phosphatase slightly elevated. His troponin I high sensitivity was 443. His beta natriuretic peptide was 335,000. His total protein 5.3, albumin was 1.6. His white cell count was 13,500, hemoglobin 7.2, hematocrit 22, MCV 89 and platelet count 341,000. His arterial blood gas showed a pH of 7.30, pCO2 of 39, pO2 of 60, bicarbonate 19 and oxygen saturation was 88% on FiO2 of 21%. His D-dimer was extremely high at 4.25 and his coronavirus by PCR was positive. His influenza A and B were negative. His x-ray of the hip and right femur showed no acute fracture or dislocation, mild degenerative changes are seen in the hips bilaterally and the right knee vascular calcifications are noted. The soft tissues are otherwise within normal range. CT scan of the abdomen and pelvis showed bibasilar patchy airspace opacities, may represent atelectasis/scarring versus infiltrate, cardiomegaly. He was also found to have moderate to large amount of abdominopelvic ascites, slightly decreased since prior exam, ill-defined peritoneal-based soft tissue nodules in the left abdomen along the paracolic gutters and changed fat induration in the left upper abdominal mesentery and greater omentum. Overall, findings may relate to fluid overload, cardiac disease; however, peritoneal nodularities and greater omental fat induration can be seen in peritoneal carcinomatosis. Recommend diagnostic paracentesis cytology. Similar multiple prominent to mildly enlarged upper abdominal, retroperitoneal and bilateral pelvic lymph node indeterminate, mild hepatomegaly with diffuse steatosis, other chronic incidental finding. The patient basically has also a chest x-ray, which basically showed cardiomegaly with bibasilar patchy airspace opacities, may represent atelectasis, scarring versus infiltrate. The patient was treated with multiple rounds of calcium gluconate, sodium bicarbonate as well as 10 units of insulin as well as glucose. We managed to bring his potassium from 9.5-7.2. Eventually, the patient was accepted to [facility], was transferred to [facility] ICU for hemodialysis. DARY ALMONTE: Nelson TID: [id number]
[2021-06-16 19:00] VITALS: BP 106/85
--- NOTE | 2021-06-16 20:06 | PN ---
DATE: 06/16/2021 SUBJECTIVE: The patient is a 40-year-old male patient who was seen yesterday as he went seen in the Emergency Room of [facility], was found to have life-threatening hyperkalemia with a serum potassium of 9.5. We treated him with multiple rounds of calcium gluconate, sodium bicarbonate, insulin as well as glucose together with nebulized albuterol. The patient himself refused to take any of his Kayexalate. His potassium came down from 9.5-7.2 eventually where he got a bed for him in [facility] and was brought to the ICU, where he was dialyzed. His serum potassium immediately after dialysis yesterday was 5.1 and this morning, his serum potassium was 6. He apparently normally dialyzes on Wednesday, Wednesday and Wednesday. On questioning him, he continued to complain of pain in both legs and the tip of his penis. PHYSICAL EXAMINATION: GENERAL: On examining him, he was pale, but not jaundiced or cyanosed, no lymphadenopathy, no thyromegaly, no jugular venous distention. No limb edema. VITAL SIGNS: His heart rate was 105, blood pressure is 102/39, temperature was 99.6, respiratory rate was 20 and oxygen saturation was 97% on room air. HEAD, EYES, EARS, NOSE, AND THROAT: Normocephalic and atraumatic. NECK: Supple. HEART: Normal first and second heart sounds. No gallop, rub or murmur. CHEST: Clear to auscultation, no crepitation or rhonchi. ABDOMEN: Distended, soft, nontender. NEUROLOGIC: He was awake, alert, but extremely confused. He was disoriented in time, place and person; however, all his cranial nerves are intact. He moves upper extremities without difficulty. He has left below-knee amputation. His intake and output incompletely recorded. LABORATORY DATA: His lab work this morning showed a serum sodium of 132, potassium 6, chloride 95, bicarbonate 25, anion gap of 12, BUN 49, creatinine 8.5. Estimated GFR was 7 and glucose 91 and calcium was 7.7. ASSESSMENT: 1. End-stage renal disease, on hemodialysis Wednesday, Wednesday, Wednesday. 2. Life-threatening hyperkalemia, treated initially conservatively with calcium gluconate, sodium bicarbonate, insulin, glucose, and albuterol inhaler at [facility] Emergency Room. Eventually, he was brought to [facility] ICU and was dialyzed. The patient has multiple other medical problems including: A. Hypertension. B. Poorly controlled type 2 diabetes mellitus, diabetic triopathy. PLAN: Obviously has ascites and nonalcoholic steatohepatitis. The patient stated that he has had multiple paracentesis, although I am unable to find in his history whether he has some form of liver disease that required recurrent paracentesis. His troponin was elevated. I will repeat another troponin level. I will consult the vp account director and repeat all his labs again tomorrow. CRISTHIAN DR: Nelson TID: [id number]
[2021-06-16] MEDS: INSULIN GLARGINE SYRINGE. SQ SCH (21:00)
[2021-06-16] MEDS: GABAPENTIN 300 MG CAPSULE. PO SCH (21:09)
[2021-06-16] MEDS: ATORVASTATIN CALCIUM 40 MG TABLET. PO SCH (21:09)
[2021-06-17] VITALS (17 sets, daily range): BP systolic 72–117; BP diastolic 22–65
--- NOTE | 2021-06-17 02:54 | EKG ---
[facility] [address] [place] [id number] Test Date: 2021-06-17 Test Time: 02:45:49 Pat Name: ADRIANA GARLAND Department: Room: 565 1 Gender: M Gluten Settling Tender: HAILEY : 1980 Requested By: JULIO CÉSAR BOYD Order Number: [id number] Reading MD: Tomer Bangura MD Measurements Intervals Magnet Rate: 80 P: 90 NH: 202 QRS: 63 QRSD: 104 T: 118 QT: 404 QTc: 470 Interpretive Statements SINUS RHYTHM LOW VOLTAGE IVCD Electronically Signed On 06-19-2021 8:48:56 [employer] by Tomer Bangura MD
[2021-06-17 02:55] LABS: RED CELL DISTRIBUTION WIDTH 15.9 % (11.5-14.5); WHITE BLOOD COUNT 8.9 x10^3/uL (4.0-11.0)
[2021-06-17 03:06] LABS: HEMATOCRIT 17.6 % (39.0-53.0); HEMOGLOBIN 5.7 g/dL (13.0-17.5)
[2021-06-17 03:09] LABS: ALBUMIN 1.5 g/dL (3.4-5.0); ALBUMIN/GLOBULIN RATIO 0.4 (1.0-1.7); CREATININE 7.2 mg/dL (0.7-1.3); GFR 8.4; POTASSIUM 5.2 mmol/L (3.5-5.1); TOTAL BILIRUBIN 0.3 mg/dL (0.2-1.0); TOTAL PROTEIN 5.1 g/dL (6.4-8.2)
[2021-06-17 03:10] LABS: PROTHROMBIN TIME PATIENT 17.6 SEC (11.7-14.0)
[2021-06-17] MEDS: INSULIN LISPRO 300 UNITS/3 ML VIAL. SQ SCH ×3 (08:00→17:00)
[2021-06-17] MEDS: CARVEDILOL 12.5 MG TABLET. PO SCH ×2 (08:00→17:00)
[2021-06-17] MEDS: SUCROFERRIC OXYHYDROXIDE PO SCH (09:00)
[2021-06-17] MEDS: FUROSEMIDE 80 MG TABLET. PO SCH (09:00)
[2021-06-17] MEDS: FOLIC/VIT B COMP W-C (RENAL) TABLET. PO SCH (10:56)
[2021-06-17] MEDS: CLOPIDOGREL BISULFATE 75 MG TABLET PO SCH (10:56)
[2021-06-17] MEDS: CALCIUM ACETATE 667 MG CAPSULE PO SCH ×3 (10:58→17:00)
[2021-06-17] MEDS: oxyCODONE IR 5 MG TABLET PO PRN ×3 (10:58→17:49)
[2021-06-17] MEDS: PANTOPRAZOLE 40 MG TABLET.DR. PO SCH (10:58)
[2021-06-17] MEDS: SERTRALINE 50 MG TABLET. PO SCH (10:58)
[2021-06-17] MEDS: ASPIRIN ENTERIC COATED 81 MG TABLET.DR. PO SCH (10:58)
[2021-06-17] MEDS: QUEtiapine 25 MG TABLET. PO SCH (10:58)
--- NOTE | 2021-06-17 11:01 | PDOC2 ---
[facility] [employer] 06/17/21 1101: CARDIAC CONSULT DATE OF CONSULT Date of Consult DATE: 06/17/21 TIME: 10:35 REASON FOR CONSULT Reason for Consult: Elevated troponin REFERRING PHYSICIAN Referring Physician: Kwadwo SOURCE Source: Chart review, Patient HISTORY OF PRESENT ILLNESS HISTORY OF PRESENT ILLNESS This is a 40 yo male admitted for right thigh and hip pain in the last 2 weeks. He was initially evaluated in [facility] and was noted with covid-19, hyperkalemia, anasarca, elevated troponin and severe anemia. He has ESRD and he did missed on of his dialysis days since he was not feeling well. Denies any chest pain or significant SOA. He is on eliquis but not sure why and could not ascertain DVT. He is somewhat poor historian but he did tell me that 2 stents placed in his coronary artery place about a month ago at [facility]. Reports that he was not just not feeling well, with his legs hurting but no diarrhea, nausea, vomiting and no fever or chills and no chest pain or SOA. PAST MEDICAL HISTORY Cardiovascular: CAD (?), HTN CENTRAL NERVOUS SYSTEM: Periperal neuropathy Heme/Onc: Anemia NOS, Other (DVT) ENT: Other (retinopathy) Renal/: Chronic renal failure (ESRD) Endocrine: Diabetes (2) PAST SURGICAL HISTORY Past Surgical History: Other (LBKA and LUE AV fistula) FAMILY HISTORY Family History: Heart Disease SOCIAL HISTORY ALCOHOL: none Drugs: None Lives: Alone ALLERGIES ALLERGIES: Coded Allergies: metoclopramide (Verified Allergy, Intermediate, 06/15/21) ROS Review of System 14 point ROS evaluated with pertinent positives noted per HPI PHYSICAL EXAM General: Alert, Oriented X3, Cooperative, No acute distress HEENT: Atraumatic, Mucous membr. moist/pink Lungs: Clear to auscultation, Normal air movement Heart: Regular rate (SR with LBB) Abdomen: Other (ascites, anasarca) Skin: Other (pale) Neuro: Normal speech, Sensation intact Psych/Mental Status: Mental status NL, Mood NL MUSCULOSKELETAL: Osteoarthritic changes both hands VITALS/I&O VITALS/I&O: Vital Signs Date Time Temp Pulse Resp B/P (MAP) Pulse Ox O2 Delivery O2 Flow Rate FiO2 06/17/21 09:48 98.7 77 18 72/38 98.7 06/17/21 07:00 90 Room Air I & O 06/16/21 06/16/21 06/17/21 15:00 23:00 07:00 Intake Total 480 ml 480 ml 250 ml Output Total 0 ml 0 ml Balance 480 ml 480 ml 250 ml LABS Lab: Laboratory Tests Test 06/16/21 10:41 06/16/21 12:56 06/16/21 16:49 06/16/21 20:58 Sodium Level 132 mmol/L (136-145) L Potassium Level 6.0 mmol/L (3.5-5.1) H Chloride Level 95 mmol/L (98-107) L Carbon Dioxide Level 25 mmol/L (21-32) Anion Gap 12 (6-14) Blood Urea Nitrogen 49 mg/dL (8-26) H Creatinine 8.5 mg/dL (0.7-1.3) H Estimated GFR (Cockcroft-Gault) 7.0 Glucose Level 117 mg/dL (70-99) H Calcium Level 7.7 mg/dL (8.5-10.1) L Troponin I High Sensitivity 3478 ng/L (4-75) H Glucose (Fingerstick) 101 mg/dL (70-99) H 153 mg/dL (70-99) H Test 06/17/21 02:35 White Blood Count 8.9 x10^3/uL (4.0-11.0) Red Blood Count 2.00 x10^6/uL (4.30-5.70) L Hemoglobin 5.7 g/dL (13.0-17.5) *L Hematocrit 17.6 % (39.0-53.0) *L Mean Corpuscular Volume 88 fL (79-100) Mean Corpuscular Hemoglobin 29 pg (25-35) Mean Corpuscular Hemoglobin Concent 33 g/dL (31-37) Red Cell Distribution Width 15.9 % (11.5-14.5) H Platelet Count 276 x10^3/uL (140-400) Prothrombin Time 17.6 SEC (11.7-14.0) H Prothrombin Time INR 1.5 (0.8-1.1) H Sodium Level 135 mmol/L (136-145) L Potassium Level 5.2 mmol/L (3.5-5.1) H Chloride Level 98 mmol/L (98-107) Carbon Dioxide Level 29 mmol/L (21-32) Anion Gap 8 (6-14) Blood Urea Nitrogen 37 mg/dL (8-26) H Creatinine 7.2 mg/dL (0.7-1.3) H Estimated GFR (Cockcroft-Gault) 8.4 BUN/Creatinine Ratio 5 (6-20) L Glucose Level 100 mg/dL (70-99) H Calcium Level 8.0 mg/dL (8.5-10.1) L Total Bilirubin 0.3 mg/dL (0.2-1.0) Aspartate Amino Transferase (AST) 230 U/L (15-37) H Alanine Aminotransferase (ALT) 116 U/L (16-63) H Alkaline Phosphatase 193 U/L (46-116) H Ammonia < 10 mcmol/L (11-34) L Troponin I High Sensitivity 3141 ng/L (4-75) H Total Protein 5.1 g/dL (6.4-8.2) L Albumin 1.5 g/dL (3.4-5.0) L Albumin/Globulin Ratio 0.4 (1.0-1.7) L Laboratory Tests 06/17/21 02:35 Laboratory Tests 06/16/21 10:41 06/17/21 02:35 ECHOCARDIOGRAM ECHOCARDIOGRAM <Conclusion> The left ventricular systolic function is normal and the ejection fraction is within normal range. The Ejection Fraction is 55-60%. There is normal LV segmental wall motion. The interatrial septum is intact with no evidence for an atrial septal defect or patent foramen ovale as noted on 2-D or Doppler imaging. Injection of bubbles documented no interatrial shunt. No significant valvular disease. DATE: 02/04/16 1051 ASSESSMENT/PLAN ASSESSMENT/PLAN 1. Severe anemia with possible GI bleed: post transfusion 2. NSTEMI: possibly demand mediated with multiple culprits 3. HTN; presently at low end 4. ESRD with severe hyperkalemia: due to missed HD 5. DM2: per PCP 6. CAD: reported 2 stents placed about a month ago at [facility] 7. Hx of DVT: on home eliquis 8. Anasarca 9. Protein malnutrition 10. Covid-19: denies vaccination 11. Coagulopathy/transaminitis 12. Hx of CVA: MRI in 2016 Scattered tiny foci of restricted diffusion in different vascular territories suggesting embolic acute infarcts. 13. HLP: on statin 14. Acute on chronic CHF with liked reduced EF: appears compensated 15. Suspect cardiomyopathy Recommendations 1. EKG reviewed and earlier suggestive of ischemia which improved but does intermittently flips to LBBB. Multiple culprits as noted above. He remains CP free and no SOA. At this time multiple acute issues precludes any invasive cardiac procedures nor any anticoagulation. ASA for now, await GI input will hold plavix and monitor H/H. Transfuse as warranted. Will likely need IVC filter if he truly is being treated for prior DVT. Will obtain limited TTE if no records. Will obtain cardiac records from [facility]. Repeat EKG and obtain BMP, hemogram 2. Secondary prevention measures as tolerated. hold BP meds for now. 3. Fluid off loading per HD 4. Monitor BP trend, manual BP, discussed with RN. will start midodrine 5. If no improvement to BP will likely need pressor support and transfer to ICU. Currently no beds in ICU TJ PRESTON MD 06/17/21 5926: CARDIAC CONSULT ASSESSMENT/PLAN ASSESSMENT/PLAN Patient seen and examined I agree with our nurse practitioners assessment and plan. Severe anemia with possible GI bleed: post transfusion. Off Eliquis. GI evaluation. Continue to monitor. NSTEMI: possibly demand mediated with multiple culprits. CAD as below. HTN; presently at low end ESRD with severe hyperkalemia: due to missed HD. As per the renal service. DM2: per PCP CAD: reported 2 stents placed about a month ago at [facility]. Requesting records. Hx of DVT: on home eliquis. On hold. Covid-19: denies vaccination Coagulopathy/transaminitis Hx of CVA: MRI in 2016 Scattered tiny foci of restricted diffusion in different vascular territories suggesting embolic acute infarcts. HLP: on statin Acute on chronic CHF with liked reduced EF: appears compensated MATT FARLEY APRN Jun 17, 2021 11:01 TJ PRESTON MD Jun 17, 2021 17:59
--- NOTE | 2021-06-17 11:01 | PN ---
DATE: 06/17/2021 SUBJECTIVE: The patient was actually seen in the Emergency Room of [facility] and was found to have extremely hyperkalemic, potassium was 9.5 in the life-threatening range. He was treated with calcium gluconate, sodium bicarbonate and insulin and glucose as well as a nebulized albuterol. He refused the Kayexalate and his potassium came down from 9.5-7.2. Eventually, he was transferred to [facility] where he was dialyzed and his serum potassium post dialysis was 5.1. 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 However, he was hypotensive and his lab work showed hemoglobin has dropped down to 5.7 and 17.6 from 7.2 and 22 on the day of admission, the patient has no obvious source of bleeding. He denied any hematemesis, melena or hematochezia. Denied any hematuria. He stated that he has recurrent accumulation of fluid in his abdomen and that he undergoes paracentesis, although I do not find any documents stated that he has advanced liver disease. We did actually type and cross and transfuse 1 unit. We will transfuse him 1 more unit. When I examined him, he was resting slightly propped up in bed, in no apparent respiratory distress. 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 Denied any nausea or vomiting. Denied any hematemesis, melena or hematochezia. PHYSICAL EXAMINATION: GENERAL: When I examined him, he was pale, but no jaundice, cyanosis or thyromegaly. No jugular venous distention. No limb edema. VITAL SIGNS: His heart rate was 77, blood pressure was 72/38, temperature was 98.7, respiratory rate was 18 and oxygen saturation was 90% on room air. HEAD, EYES, EARS, NOSE AND THROAT: Normocephalic, atraumatic. NECK: Supple. HEART: Showed normal first and second heart sounds. No gallop, rub or murmur. CHEST: Clear to auscultation, no crepitation or rhonchi. ABDOMEN: Distended, soft, nontender. NEUROLOGIC: He is awake, alert. All his cranial nerves are intact. He moves upper extremities without difficulty. He has a right below-knee amputation. LABORATORY DATA: This morning showed a white cell count of 8900, hemoglobin 5.7, hematocrit 17.6, MCV 88 and platelet count 276,000. Serum sodium was 135, potassium 5.2, chloride 98, bicarbonate 29, anion gap of 8, BUN 37, creatinine 7.2. His glucose was 100, calcium was 8. Total bilirubin is normal. AST, ALT, alkaline phosphatase are elevated. His ammonia is less than 10. His troponin I high sensitivity is 3141. His total protein was 5.1, albumin was 1.5. His prothrombin time was 17.6, INR 1.5. ASSESSMENT: 1. Life-threatening hyperkalemia, resolved. The patient was dialyzed. 2. Anemia, likely blood loss. Hemoglobin on admission was 7.2 and hematocrit 22, today is down to 5.7 and 17.6. He has a history of ascites and multiple paracentesis, so I am assuming that he probably has some form of liver disease and I am concerned that he might have esophageal varices. 3. End-stage renal disease, on hemodialysis. 4. Hypertension; however, the patient if anything is hypertensive. 5. The patient has markedly elevated troponin, at [facility], his troponin was 423. It has risen to 3478 and the third one was 3141, probably has a non-ST segment elevation myocardial infarction. 6. Hypotension, likely due to blood loss versus cardiogenic shock, type 2 diabetes mellitus with blood sugar that seems to be reasonably controlled, abnormal liver enzymes, likely due to hypotension versus underlying liver disease. PLAN: We have already transfused 1 unit, we will transfuse another one and also give him a bolus of normal saline. I have already consulted the customs examiner for the elevation of his troponin I high sensitivity and I would consult also the tree thinner to assist with his management. I tried to transfer him to ICU, but apparently there are no beds and we can transfer him to 6th floor as there is also no beds. Given all his multiple comorbidities including calciphylaxis, his overall prognosis is extremely poor. JULIANNA ALMONTE: Nelson TID: [id number]
--- NOTE | 2021-06-17 11:03 | PDOC ---
DATE OF SERVICE DATE: 06/17/21 TIME: 11:03 SUBJECTIVE ROS States not feeling well, c/o leg hurting No N/V/ Denies SOB OBJECTIVE Vital Signs Vital Signs Date Time Temp Pulse Resp B/P (MAP) Pulse Ox O2 Delivery O2 Flow Rate FiO2 06/17/21 10:58 90 Room Air 06/17/21 09:48 98.7 77 18 72/38 98.7 I & 0 Intake and Output 06/17/21 07:00 Intake Total 1210 ml Output Total 0 ml Balance 1210 ml Intake Oral 1210 ml Output Urine Total 0 ml # Bowel Movements 1 PHYSICAL EXAM Physical Exam GENERAL: NAD, resting with eyes closed HEEN OM moist NECK: Supple. HEART: S1S2, SR with LBBB LUNGS: Clear to auscultation,decreased at bases Non labored ABDOMEN: soft, nontender.Obese NEUROLOGIC: awake, alert,Grossly normal No Rodriguez DERM No Rash DIAGNOSIS/ASSESSMENT Assessment & Plan ESRD- On HD MWF. He has been on Dialysis since 2017 (per Dr Thomas note in [facility] records).Currently no emergent indication for dialysis. hemodynamically unstable as well Currently he goes to [facility]- Under Dr Godoy's care(from [facility]) , per Nursing staff- chronic non compliance with treatments, Dietary restrictions- drinks 2 lts Mountain dew/day etc HyperKalemia POA - Dialyzed emergently 1th night and again 06/16 .K 5.3 today Anemia- Hgb 7.2 @ [facility] ; Drop in Hgb - s/p PRBC, Hgb still <7 NSTEMI: Troponin trending up CAD: reported 2 stents placed about a month ago at [facility] Hx of DVT: on home eliquis Covid-19: denies vaccination Hx of CVA: MRI in 2016 Scattered tiny foci of restricted diffusion in different vascular territories suggesting embolic acute infarcts. Hypertension- Non compliance . Currently Low BP- per Nursing Systolic 70's , recd IV bolus. Cardiology Consulted Poorly controlled type 2 diabetes mellitus, diabetic retinopathy. Ascites and nonalcoholic steatohepatitis - Per [facility] staff he is supposed to be on scheduled paracentesis but is non compliant Peritoneal nodularities and greater omental fat induration --can be seen in peritoneal carcinomatosis. Recommend diagnostic paracentesis cytology. Similar multiple prominent to mildly enlarged upper abdominal, retroperitoneal and bilateral pelvic lymph node indeterminate. Defer to Primary COMMENT/RELEVANT DATA Meds Current Medications Medications (Trade) Dose Ordered Sig/Damien Start Time Stop Time Status Last Admin Dose Admin Albumin Human 200 ml @ 200 mls/hr 1X PRN PRN 06/15/21 19:15 06/16/21 01:14 DC 06/15/21 19:05 200 MLS/HR Aspirin (Ecotrin) 81 mg DAILY 06/16/21 09:00 06/17/21 10:58 81 MG Atorvastatin Calcium (Lipitor) 40 mg QHS 06/15/21 23:00 06/16/21 21:09 40 MG Calcium Acetate (Phoslo) 667 mg TIDWMEALS 06/16/21 08:00 06/17/21 10:58 667 MG Carvedilol (Coreg) 50 mg BIDWMEALS 06/16/21 08:00 06/16/21 18:18 50 MG Clonidine HCl (Catapres) 0.1 mg PRN Q8HRS PRN 06/15/21 22:30 Clopidogrel Bisulfate (Plavix) 75 mg DAILY 06/16/21 09:00 06/17/21 10:56 75 MG Dextrose (Dextrose 50%-Water Syringe) 12.5 gm PRN Q15MIN PRN 06/15/21 20:45 Furosemide (Lasix) 80 mg DAILY 06/16/21 09:00 06/16/21 09:00 80 MG Gabapentin (Neurontin) 300 mg QHS 06/15/21 23:00 06/16/21 21:09 300 MG Hydralazine HCl (Apresoline) 100 mg BID 06/15/21 23:00 Hydroxyzine HCl (Atarax) 25 mg PRN Q6HRS PRN 06/15/21 22:30 Info (PHARMACY MONITORING -- do not chart) 1 each PRN DAILY PRN 06/16/21 07:00 Insulin Glargine (Lantus Syringe) 32 unit QHS 06/15/21 23:00 Insulin Human Lispro (HumaLOG) 0-7 UNITS TIDWMEALS 06/16/21 08:00 Non-Formulary Medication (Sucroferric Oxyhydroxide (Velphoro)) 1 tab TID 06/16/21 09:00 UNV Oxycodone HCl (Roxicodone) 5 mg PRN Q4HRS PRN 06/15/21 22:45 06/17/21 10:58 5 MG Pantoprazole Sodium (Protonix) 40 mg DAILYAC 06/16/21 07:30 06/17/21 10:58 40 MG Quetiapine Fumarate (SEROquel) 25 mg DAILY 06/16/21 09:00 06/17/21 10:58 25 MG Sertraline HCl (Zoloft) 100 mg DAILY 06/16/21 09:00 06/17/21 10:58 100 MG Sodium Chloride 1,000 ml @ 400 mls/hr Q2H30M PRN 06/16/21 07:00 06/16/21 18:59 DC Vitamin B Complex/ Vitamin C (Yajaira-Allan) 1 tab DAILY 06/16/21 09:00 06/17/21 10:56 1 TAB Lab Laboratory Tests Test 06/16/21 12:56 06/16/21 16:49 06/16/21 20:58 06/17/21 02:35 Troponin I High Sensitivity 3478 ng/L (4-75) 3141 ng/L (4-75) Glucose (Fingerstick) 101 mg/dL (70-99) 153 mg/dL (70-99) White Blood Count 8.9 x10^3/uL (4.0-11.0) Red Blood Count 2.00 x10^6/uL (4.30-5.70) Hemoglobin 5.7 g/dL (13.0-17.5) Hematocrit 17.6 % (39.0-53.0) Mean Corpuscular Volume 88 fL (79-100) Mean Corpuscular Hemoglobin 29 pg (25-35) Mean Corpuscular Hemoglobin Concent 33 g/dL (31-37) Red Cell Distribution Width 15.9 % (11.5-14.5) Platelet Count 276 x10^3/uL (140-400) Prothrombin Time 17.6 SEC (11.7-14.0) Prothromb Time International Ratio 1.5 (0.8-1.1) Sodium Level 135 mmol/L (136-145) Potassium Level 5.2 mmol/L (3.5-5.1) Chloride Level 98 mmol/L (98-107) Carbon Dioxide Level 29 mmol/L (21-32) Anion Gap 8 (6-14) Blood Urea Nitrogen 37 mg/dL (8-26) Creatinine 7.2 mg/dL (0.7-1.3) Estimated GFR (Cockcroft-Gault) 8.4 BUN/Creatinine Ratio 5 (6-20) Glucose Level 100 mg/dL (70-99) Calcium Level 8.0 mg/dL (8.5-10.1) Total Bilirubin 0.3 mg/dL (0.2-1.0) Aspartate Amino Transf (AST/SGOT) 230 U/L (15-37) Alanine Aminotransferase (ALT/SGPT) 116 U/L (16-63) Alkaline Phosphatase 193 U/L (46-116) Ammonia < 10 mcmol/L (11-34) Total Protein 5.1 g/dL (6.4-8.2) Albumin 1.5 g/dL (3.4-5.0) Albumin/Globulin Ratio 0.4 (1.0-1.7) Results All relevant outside records, renal labs, imaging studies, telemetry/EKG's were reviewed. Justicifation of Admission Dx: Justifications for Admission: Justification of Admission Dx: N/A CHANI DANIELLE MD Jun 17, 2021 11:03
[2021-06-17 11:33] LABS: CHOLESTEROL/HDL RATIO 4.1
--- NOTE | 2021-06-17 12:01 | PDOC2 ---
GI CONSULT Date of Service: DATE: 06/17/21 TIME: 12:01 Reason For Consult: ?liver disease with GI bleeding HPI: HPI: 40 y/o male was evaluated @ [facility] ER for inner thigh pain and transferred to [facility] on 06/15/21 w/ hyperkalemia. H/o ESRD, recently non-compliant w/ dialysis. Also has COVID. Suspect historian. Reports GI workup at [facility] a few months ago. Believes EGD and colonoscopy were done there for anemia, tarry stools, and constipation. Says he was diagnosed with an ulcer in his colon. Does not recall any treatment/recommendations. Indicates stools have remained dark. Reports GES was abnormal (also at [facility]) and he takes metoclopramide TIDAC for gastroparesis; interestingly, metoclopramide is listed as an allergy in his chart. Denies reflux/heartburn, dysphagia, n/v, diarrhea, and hematochezia. Has had abdominal pain and distention for a couple months. Stooled today. Denies GB, liver, pancreas, and PUD history. H/o CAD and DVT on Plavix, Eliquis, and ASA. Takes oxycodone at home and used to take ibuprofen. Doesn't take iron or B12. Med list includes ranitidine. Reviewed past labs - has chronic anemia. Today Hgb 5.7 (seems baseline is govind ewhere between 6-9), MCV 88, plt 276, INR 1.5, bili 0.3, AST 230, ALT 116, Alk Phos 193, ammonia < 10. CT at [facility]: moderate to large abdominopelvic ascites, slightly decreasing since prior exam, ill-defined peritoneal based soft tissue nodules in the left abdomen along the paracolic gutter, unchanged fat induration in left upper abdominal mesentery and greater omentum - overal findings may related to fluid overload/cardiac disease (but recommendation for paracentesis w/ cytology to exclude peritoneal carcinomatosis), similar multiple prominent to mildly enlarged upper abdominal, retroperitoneal and bilateral pelvic lymph nodes, mild hepatomegaly with diffuse steatosis. Also noted diverticulosis. D/w nurse - no obvious GI bleeding, BP has been low. Cardiology now following for elevated troponin. Able to review outside records from [facility]: has had paracentesis (?assumed ascites related to renal disease) and past cytology report negative for malignant cells. PMH: PMH: CAD w/ stents, ESRD on HD, HTN, DM, CVA, DVT, retinopathy, peripheral neuropathy, thyroid nodules left BKA, LUE AV fistula, paracentesis FH: Family History: No pertinent hx (denies GI cancers) Social History: Smoke: No ALCOHOL: none Drugs: None ROS: Limited - see HPI. Vitals: Vitals: Vital Signs Date Time Temp Pulse Resp B/P (MAP) Pulse Ox O2 Delivery O2 Flow Rate FiO2 06/17/21 11:31 90 Room Air 06/17/21 11:00 98.2 108 19 76/32 (47) 98.2 Labs: Labs: Laboratory Tests Test 06/16/21 12:56 06/16/21 16:49 06/16/21 20:58 06/17/21 02:35 Troponin I High Sensitivity 3478 ng/L (4-75) 3141 ng/L (4-75) Glucose (Fingerstick) 101 mg/dL (70-99) 153 mg/dL (70-99) White Blood Count 8.9 x10^3/uL (4.0-11.0) Red Blood Count 2.00 x10^6/uL (4.30-5.70) Hemoglobin 5.7 g/dL (13.0-17.5) Hematocrit 17.6 % (39.0-53.0) Mean Corpuscular Volume 88 fL (79-100) Mean Corpuscular Hemoglobin 29 pg (25-35) Mean Corpuscular Hemoglobin Concent 33 g/dL (31-37) Red Cell Distribution Width 15.9 % (11.5-14.5) Platelet Count 276 x10^3/uL (140-400) Prothrombin Time 17.6 SEC (11.7-14.0) Prothromb Time International Ratio 1.5 (0.8-1.1) Sodium Level 135 mmol/L (136-145) Potassium Level 5.2 mmol/L (3.5-5.1) Chloride Level 98 mmol/L (98-107) Carbon Dioxide Level 29 mmol/L (21-32) Anion Gap 8 (6-14) Blood Urea Nitrogen 37 mg/dL (8-26) Creatinine 7.2 mg/dL (0.7-1.3) Estimated GFR (Cockcroft-Gault) 8.4 BUN/Creatinine Ratio 5 (6-20) Glucose Level 100 mg/dL (70-99) Calcium Level 8.0 mg/dL (8.5-10.1) Total Bilirubin 0.3 mg/dL (0.2-1.0) Aspartate Amino Transf (AST/SGOT) 230 U/L (15-37) Alanine Aminotransferase (ALT/SGPT) 116 U/L (16-63) Alkaline Phosphatase 193 U/L (46-116) Ammonia < 10 mcmol/L (11-34) Total Protein 5.1 g/dL (6.4-8.2) Albumin 1.5 g/dL (3.4-5.0) Albumin/Globulin Ratio 0.4 (1.0-1.7) Triglycerides Level 100 mg/dL (0-150) Cholesterol Level 73 mg/dL (0-200) LDL Cholesterol, Calculated 35 mg/dL (0-100) VLDL Cholesterol, Calculated 20 mg/dL (0-40) Non-HDL Cholesterol Calculated 55 mg/dL (0-129) HDL Cholesterol 18 mg/dL (40-60) Cholesterol/HDL Ratio 4.1 Thyroid Stimulating Hormone (TSH) 2.550 uIU/mL (0.358-3.74) Test 06/17/21 08:18 06/17/21 11:23 Glucose (Fingerstick) 108 mg/dL (70-99) 104 mg/dL (70-99) Allergies: Coded Allergies: metoclopramide (Verified Allergy, Intermediate, 06/15/21) Medications: please see EMR PE: GEN: chronically ill HEENT: keeps eyes closed LUNGS: diminished anteriorly HEART: mildly tachycardic ABD: nonspecifically tender, very large/distended, umbilical hernia EXTREMITY/SKIN: left BKA NEURO/PSYCH: lethargic A/P: A/P: COVID ESRD, non-compliant w/ HD, ascites - h/o past paracentesis Hypotension, elevated troponin Chronic anemia - Hgb below baseline today, no obvious GI bleeding Abnormal LFTs - no clear h/o liver disease (though fatty liver mentioned) H/o gastroparesis - ?on metoclopramide CRC screen - reports recently colonoscopy @ [facility] Diverticulosis H/o CAD, DVT, and CVA on Plavix, Eliquis, and ASA -- Asked for records from [facility]. Check viral Hepatitis and Doppler, consider paracentesis. Agree w/ PPI. Transfuse as needed, observe for bleeding. NATASHA MANZO Jun 17, 2021 12:01
[2021-06-17 12:15] LABS: ALBUMIN 1.5 g/dL (3.4-5.0); ALBUMIN/GLOBULIN RATIO 0.4 (1.0-1.7); CALCIUM 7.9 mg/dL (8.5-10.1); CREATININE 7.2 mg/dL (0.7-1.3); GFR 8.4; POTASSIUM 5.3 mmol/L (3.5-5.1); TOTAL BILIRUBIN 0.3 mg/dL (0.2-1.0); TOTAL PROTEIN 5.1 g/dL (6.4-8.2)
--- NOTE | 2021-06-17 12:35 | NUR ---
SS following up with discharge planning. SS reviewed pt chart and discussed with pt RN. Pt is currently on room air. COVID19 positive. Pt having low blood pressure, potassium issues, and low hemoglobin. Pt getting blood today. Pt having idioventricular rhythm. Cardiology, GI, and Nephrology following. Pt has outpatient dialysis at [facility]. [facility] working on arranging cohort clinic for discharge due to COVID19 positive status. Not ready. SS discussed with Dr. Burkett. SS will continue to follow for discharge planning.
[2021-06-17] MEDS: MIDODRINE 5 MG TABLET PO SCH ×2 (14:26→17:49)
[2021-06-17] MEDS ORDERED: diphenhydrAMINE HCL 25 MG CAPSULE PO PRN (14:30)
[2021-06-17 15:36] LABS: HEMATOCRIT 21.1 % (39.0-53.0); RED BLOOD COUNT 2.38 x10^6/uL (4.30-5.70); RED CELL DISTRIBUTION WIDTH 15.2 % (11.5-14.5); WHITE BLOOD COUNT 11.2 x10^3/uL (4.0-11.0)
[2021-06-17 15:39] LABS: HEMOGLOBIN 6.9 g/dL (13.0-17.5)
[2021-06-17 20:29] LABS: HEMATOCRIT 23.4 % (39.0-53.0); HEMOGLOBIN 7.7 g/dL (13.0-17.5)
[2021-06-17] MEDS: INSULIN GLARGINE SYRINGE. SQ SCH (21:00)
[2021-06-17] MEDS: ATORVASTATIN CALCIUM 40 MG TABLET. PO SCH (21:24)
[2021-06-17] MEDS: GABAPENTIN 300 MG CAPSULE. PO SCH (21:24)
[2021-06-18] VITALS (21 sets, daily range): BP systolic 67–121; BP diastolic 32–73
--- NOTE | 2021-06-18 00:47 | RAD ---
Bilateral lower extremity venous Doppler dated 06/18/2021 12:43 AM COMPARISON: none. CLINICAL INDICATION: Leg pain and edema Reason: pain in lower extremities with history of DVT / Spl. Instructions: / History: FINDINGS: Grayscale, color-flow and spectral waveform analysis performed to include the deep venous system of b ilateral lower extremity. There is normal compressibility, phasicity and augmentation of flow through out. No filling defects are seen. Study is somewhat limited due to body habitus. There is been below- knee amputation of the left. Borderline enlarged bilateral groin lymph nodes, nonspecific. There is s ome prominent subcutaneous edema in the upper thighs bilaterally. IMPRESSION: No evidence of bilateral lower extremity deep vein thrombosis. Electronically signed by: Chaitanya Mckeon MD (06/18/2021 12:45 AM) ISABELLE
--- NOTE | 2021-06-18 00:58 | RAD ---
Hepatic Doppler exam dated 06/17/2021. COMPARISON: None. CLINICAL INDICATION: Ascites and cirrhosis. Evaluate portal vein. FINDINGS: Grayscale, color-flow and spectral waveform analysis was performed. There is normal hepatopedal flow within the main portal vein and right portal vein with some biphasic flow in the left portal vein. No thrombosis. Small amount of ascites. IMPRESSION: 1. Patent portal vein with normal directional flow in the main portal vein and right portal vein. The re is some biphasic flow in the left portal vein branch suggesting portal hypertension. 2. Small amount of ascites. Electronically signed by: Chaitanya Mckeon MD (06/18/2021 12:56 AM) ISABELLE
--- NOTE | 2021-06-18 03:29 | EKG ---
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
[2021-06-18 06:04] LABS: HEMATOCRIT 25.6 % (39.0-53.0); HEMOGLOBIN 8.2 g/dL (13.0-17.5); RED BLOOD COUNT 2.84 x10^6/uL (4.30-5.70); WHITE BLOOD COUNT 10.5 x10^3/uL (4.0-11.0)
[2021-06-18 06:08] LABS: CREATININE 7.9 mg/dL (0.7-1.3); GFR 7.6; POTASSIUM 5.2 mmol/L (3.5-5.1)
[2021-06-18 06:21] LABS: PROTHROMBIN TIME PATIENT 15.8 SEC (11.7-14.0)
[2021-06-18] MEDS: INSULIN LISPRO 300 UNITS/3 ML VIAL. SQ SCH ×3 (08:00→17:00)
[2021-06-18] MEDS: CARVEDILOL 12.5 MG TABLET. PO SCH (08:00)
[2021-06-18 08:27] LABS: ALBUMIN 1.5 g/dL (3.4-5.0); DIRECT BILIRUBIN 0.2 mg/dL (0.0-0.2); TOTAL BILIRUBIN 0.3 mg/dL (0.2-1.0); TOTAL PROTEIN 4.7 g/dL (6.4-8.2)
[2021-06-18] MEDS: CALCIUM ACETATE 667 MG CAPSULE PO SCH ×3 (08:31→17:00)
[2021-06-18] MEDS: FOLIC/VIT B COMP W-C (RENAL) TABLET. PO SCH (08:32)
[2021-06-18] MEDS: MIDODRINE 5 MG TABLET PO SCH ×2 (08:32→12:44)
[2021-06-18] MEDS: PANTOPRAZOLE 40 MG TABLET.DR. PO SCH (08:32)
[2021-06-18] MEDS: SERTRALINE 50 MG TABLET. PO SCH (08:42)
[2021-06-18] MEDS: QUEtiapine 25 MG TABLET. PO SCH (08:42)
[2021-06-18] MEDS: FUROSEMIDE 80 MG TABLET. PO SCH (08:42)
--- NOTE | 2021-06-18 09:54 | PDOC ---
Date of Service: DATE: 06/18/21 TIME: 09:48 Subjective: Subjective: Talking on phone. Objective: Objective: D/w nurse - transferring to ICU for pressors and dialysis, also abnormal heart rhythm. Transfused 2 units pRBCs. Vital Signs: Vital Signs Date Time Temp Pulse Resp B/P (MAP) Pulse Ox O2 Delivery O2 Flow Rate FiO2 06/18/21 08:32 73 72/32 06/18/21 03:00 98.0 20 96 Room Air 98.0 Labs: Laboratory Tests Test 06/17/21 11:23 06/17/21 16:26 06/17/21 20:18 06/18/21 07:58 Glucose (Fingerstick) 104 mg/dL (70-99) 99 mg/dL (70-99) 124 mg/dL (70-99) 116 mg/dL (70-99) Imaging: Doppler 06/17 IMPRESSION: 1. Patent portal vein with normal directional flow in the main portal vein and right portal vein. There is some biphasic flow in the left portal vein branch suggesting portal hypertension. 2. Small amount of ascites. LE US 06/17 IMPRESSION: No evidence of bilateral lower extremity deep vein thrombosis. PE: GEN: isolation - visual exam LUNGS: room air HEART: irregular ABD: large/distended NEURO/PSYCH: A & O 3 A/P: COVID, hypotension, ESRD, ascites w/ h/o paracentesis Chronic anemia (improved), abnormal LFTs H/o CAD, DVT, CVA -- Transferring to ICU - will check chart there for any outside records received and review Doppler w/ Dr. Sanchez. Justicifation of Admission Dx: Justifications for Admission: Justification of Admission Dx: N/A NATASHA MANZO Jun 18, 2021 09:54
[2021-06-18] MEDS ORDERED: NOREPINEPHRINE VIAL 8 MG in IV DEXTROSE 5% 250 ML IV PRN (10:45)
--- NOTE | 2021-06-18 10:52 | NUR ---
Pt transferred to room 106. Called and gave report to LESTER Sarmiento.
--- NOTE | 2021-06-18 12:34 | PDOC ---
CARDIO Progress Notes Date and Time Date of Service 06/18/2021 Time of Evaluation 1030 Vitals Vitals Vital Signs Date Time Temp Pulse Resp B/P (MAP) Pulse Ox O2 Delivery O2 Flow Rate FiO2 06/18/21 08:32 73 72/32 06/18/21 08:00 Room Air 06/18/21 07:00 98.1 16 98 98.1 Weight Weight [ ] Input and Output Intake and Output Intake and Output 06/18/21 07:00 Intake Total 1029 ml Output Total 0 ml Balance 1029 ml Intake Oral 720 ml Blood Product IV Normal Saline Flush 309 ml Output Urine Total 0 ml # Bowel Movements 2 Laboratory Labs Laboratory Tests Test 06/17/21 15:25 06/17/21 16:26 06/17/21 20:18 06/17/21 20:20 White Blood Count 11.2 x10^3/uL (4.0-11.0) Red Blood Count 2.38 x10^6/uL (4.30-5.70) Hemoglobin 6.9 g/dL (13.0-17.5) 7.7 g/dL (13.0-17.5) Hematocrit 21.1 % (39.0-53.0) 23.4 % (39.0-53.0) Mean Corpuscular Volume 89 fL (79-100) Mean Corpuscular Hemoglobin 29 pg (25-35) Mean Corpuscular Hemoglobin Concent 33 g/dL (31-37) Red Cell Distribution Width 15.2 % (11.5-14.5) Platelet Count 325 x10^3/uL (140-400) Glucose (Fingerstick) 99 mg/dL (70-99) 124 mg/dL (70-99) Lactic Acid Level 1.2 mmol/L (0.4-2.0) Test 06/18/21 05:35 06/18/21 07:58 White Blood Count 10.5 x10^3/uL (4.0-11.0) Red Blood Count 2.84 x10^6/uL (4.30-5.70) Hemoglobin 8.2 g/dL (13.0-17.5) Hematocrit 25.6 % (39.0-53.0) Mean Corpuscular Volume 90 fL (79-100) Mean Corpuscular Hemoglobin 29 pg (25-35) Mean Corpuscular Hemoglobin Concent 32 g/dL (31-37) Red Cell Distribution Width 15.0 % (11.5-14.5) Platelet Count 353 x10^3/uL (140-400) Prothrombin Time 15.8 SEC (11.7-14.0) Prothromb Time International Ratio 1.3 (0.8-1.1) Sodium Level 133 mmol/L (136-145) Potassium Level 5.2 mmol/L (3.5-5.1) Chloride Level 94 mmol/L (98-107) Carbon Dioxide Level 24 mmol/L (21-32) Anion Gap 15 (6-14) Blood Urea Nitrogen 41 mg/dL (8-26) Creatinine 7.9 mg/dL (0.7-1.3) Estimated GFR (Cockcroft-Gault) 7.6 Glucose Level 104 mg/dL (70-99) Calcium Level 7.0 mg/dL (8.5-10.1) Total Bilirubin 0.3 mg/dL (0.2-1.0) Direct Bilirubin 0.2 mg/dL (0.0-0.2) Aspartate Amino Transf (AST/SGOT) 586 U/L (15-37) Alanine Aminotransferase (ALT/SGPT) 394 U/L (16-63) Alkaline Phosphatase 207 U/L (46-116) Ammonia < 10 mcmol/L (11-34) Total Protein 4.7 g/dL (6.4-8.2) Albumin 1.5 g/dL (3.4-5.0) Glucose (Fingerstick) 116 mg/dL (70-99) Physical Exam HEENT: Neck Supple W Full Motion Chest: Symmetric LUNGS: Other (diminished) Heart: RRR (intermittent V pacing) Abdomen: Soft N/T Extremities: No Calf Tenderness Neurology: alert, oriented, follow commands Assessment Assessment 1. Severe anemia with possible GI bleed: no obvious bleed so far post transfusion 2. NSTEMI: possibly demand mediated with multiple culprits CP free 3. Shock: multifactorial 4. ESRD with severe hyperkalemia: due to missed HD 5. DM2: per PCP 6. CAD: reported 2 stents placed about a month ago at [facility] 7. Hx of DVT: on home eliquis 8. Anasarca with increasing transamintis: GI following 9. Protein malnutrition 10. Covid-19: denies vaccination 11. Coagulopathy/transaminitis 12. Hx of CVA: MRI in 2016 Scattered tiny foci of restricted diffusion in different vascular territories suggesting embolic acute infarcts. 13. HLP: on statin 14. Acute on chronic CHF with liked reduced EF: appears compensated 15. 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 Continue ECASA, and will hold plavix for now and monitor H/H. Transfuse as warranted. Will likely need IVC filter if he truly is being treated for prior DVT. Will obtain limited TTE if no records. awaiting cardiac and GI records. Will need to clarfiy exactly when he had his PCI 2. Secondary prevention measures as tolerated. hold BP meds for now. 3. Fluid off loading per HD 4. Continue midodrine. Start on levophed Justicifation of Admission Dx: Justifications for Admission: Justification of Admission Dx: N/A MATT FARLEY APRN Jun 18, 2021 12:34
[2021-06-18] MEDS ORDERED: IV NORMAL SALINE 1000ML BAG 1,000 ML IV PRN ×2 (13:45)
[2021-06-18] MEDS ORDERED: DIALYSIS PATIENT. MC PRN (13:45)
[2021-06-18] MEDS ORDERED: ALBUMIN HUMAN 25% 200 ML IV PRN (13:45)
--- NOTE | 2021-06-18 14:04 | PDOC ---
DATE OF SERVICE DATE: 06/18/21 TIME: 13:57 SUBJECTIVE ROS Transferred to ICU, Hypotensive, On Pressor support C/O nausea. OBJECTIVE Vital Signs Vital Signs Date Time Temp Pulse Resp B/P (MAP) Pulse Ox O2 Delivery O2 Flow Rate FiO2 06/18/21 13:00 76 20 118/70 97 Room Air 06/18/21 10:00 98.1 98.1 I & 0 Intake and Output 06/18/21 07:00 Intake Total 1029 ml Output Total 0 ml Balance 1029 ml Intake Oral 720 ml Blood Product IV Normal Saline Flush 309 ml Output Urine Total 0 ml # Bowel Movements 2 PHYSICAL EXAM Physical Exam GENERAL: NAD, resting with eyes closed HEEN OM moist NECK: Supple. HEART: S1S2, SR with LBBB LUNGS: Clear to auscultation,decreased at bases Non labored ABDOMEN: soft, nontender.Obese NEUROLOGIC: awake, alert,Grossly normal No Rodriguez DERM No Rash DIAGNOSIS/ASSESSMENT Assessment & Plan ESRD- On HD MWF. He has been on Dialysis since 2017.Dialysis today, continue as ordered. [facility] LE Zhang- Under Dr Godoy's care(from [facility]) , per Nursing staff- chronic non compliance with treatments, Dietary restrictions- drinks 2 lts Mountain dew/day etc HyperKalemia severe - POA - Dialyzed emergently ; K mildly elevated - Dialysis today Anemia- s/p PRBC on 06/17 NSTEMI: Troponin trending up CAD: reported 2 stents placed about a month ago at [facility] Hx of DVT: on home eliquis Covid-19: denies vaccination Hx of CVA: MRI in 2016 Scattered tiny foci of restricted diffusion in different vascular territories suggesting embolic acute infarcts. Hypertension- Non compliance . low BP's since 06/17 recd IV bolus. Cardiology Consulted . Transferred to ICU, on pressor support Poorly controlled type 2 diabetes mellitus, diabetic retinopathy. Ascites and nonalcoholic steatohepatitis - Per [facility] staff he is supposed to be on scheduled paracentesis , non compliant Peritoneal nodularities and greater omental fat induration --can be seen in peritoneal carcinomatosis. Recommend diagnostic paracentesis cytology. Similar multiple prominent to mildly enlarged upper abdominal, retroperitoneal and bilateral pelvic lymph node indeterminate. Defer to Primary COMMENT/RELEVANT DATA Meds Current Medications Medications (Trade) Dose Ordered Sig/Damien Start Time Stop Time Status Last Admin Dose Admin Albumin Human 200 ml @ 200 mls/hr 1X PRN PRN 06/18/21 13:45 06/18/21 19:44 Aspirin (Ecotrin) 81 mg [id number] 06/19/21 08:00 Atorvastatin Calcium (Lipitor) 40 mg QHS 06/15/21 23:00 06/17/21 21:24 40 MG Calcium Acetate (Phoslo) 667 mg TIDWMEALS 06/16/21 08:00 06/18/21 12:43 667 MG Carvedilol (Coreg) 50 mg BIDWMEALS 06/16/21 08:00 06/18/21 10:28 DC 06/16/21 18:18 50 MG Clonidine HCl (Catapres) 0.1 mg PRN Q8HRS PRN 06/15/21 22:30 Clopidogrel Bisulfate (Plavix) 75 mg DAILY 06/16/21 09:00 06/17/21 11:35 DC 06/17/21 10:56 75 MG Dextrose (Dextrose 50%-Water Syringe) 12.5 gm PRN Q15MIN PRN 06/15/21 20:45 Diphenhydramine HCl (Benadryl) 25 mg PRN 1X PRN 06/17/21 14:30 06/18/21 14:29 06/18/21 12:43 25 MG Furosemide (Lasix) 80 mg DAILY 06/16/21 09:00 06/18/21 10:28 DC 06/16/21 09:00 80 MG Gabapentin (Neurontin) 300 mg QHS 06/15/21 23:00 06/17/21 21:24 300 MG Hydralazine HCl (Apresoline) 100 mg BID 06/15/21 23:00 06/18/21 10:28 DC Hydroxyzine HCl (Atarax) 25 mg PRN Q6HRS PRN 06/15/21 22:30 Info (PHARMACY MONITORING -- do not chart) 1 each PRN DAILY PRN 06/18/21 13:45 Insulin Glargine (Lantus Syringe) 32 unit QHS 06/15/21 23:00 Insulin Human Lispro (HumaLOG) 0-7 UNITS TIDWMEALS 06/16/21 08:00 Midodrine (Proamatine) 5 mg [id number] 06/17/21 13:45 06/18/21 12:44 5 MG Non-Formulary Medication (Sucroferric Oxyhydroxide (Velphoro)) 1 tab TID 06/16/21 09:00 06/17/21 11:17 DC Norepinephrine Bitartrate 8 mg/ Dextrose 258 ml @ 25.445 mls/ hr CONT PRN 06/18/21 10:45 06/18/21 11:05 25.445 MLS/HR Ondansetron HCl (Zofran) 4 mg PRN Q4HRS PRN 06/18/21 13:30 Oxycodone HCl (Roxicodone) 5 mg PRN Q4HRS PRN 06/15/21 22:45 06/17/21 17:49 5 MG Pantoprazole Sodium (Protonix) 40 mg DAILYAC 06/16/21 07:30 06/18/21 08:32 40 MG Quetiapine Fumarate (SEROquel) 25 mg DAILY 06/16/21 09:00 06/17/21 10:58 25 MG Sertraline HCl (Zoloft) 100 mg DAILY 06/16/21 09:00 06/17/21 10:58 100 MG Sodium Chloride 1,000 ml @ 400 mls/hr Q2H30M PRN 06/18/21 13:45 06/19/21 01:44 Vitamin B Complex/ Vitamin C (Yajaira-Allan) 1 tab DAILY 06/16/21 09:00 06/18/21 08:32 1 TAB Lab Laboratory Tests Test 06/17/21 15:25 06/17/21 16:26 06/17/21 20:18 06/17/21 20:20 White Blood Count 11.2 x10^3/uL (4.0-11.0) Red Blood Count 2.38 x10^6/uL (4.30-5.70) Hemoglobin 6.9 g/dL (13.0-17.5) 7.7 g/dL (13.0-17.5) Hematocrit 21.1 % (39.0-53.0) 23.4 % (39.0-53.0) Mean Corpuscular Volume 89 fL (79-100) Mean Corpuscular Hemoglobin 29 pg (25-35) Mean Corpuscular Hemoglobin Concent 33 g/dL (31-37) Red Cell Distribution Width 15.2 % (11.5-14.5) Platelet Count 325 x10^3/uL (140-400) Glucose (Fingerstick) 99 mg/dL (70-99) 124 mg/dL (70-99) Lactic Acid Level 1.2 mmol/L (0.4-2.0) Test 06/18/21 05:35 06/18/21 07:58 06/18/21 12:48 White Blood Count 10.5 x10^3/uL (4.0-11.0) Red Blood Count 2.84 x10^6/uL (4.30-5.70) Hemoglobin 8.2 g/dL (13.0-17.5) Hematocrit 25.6 % (39.0-53.0) Mean Corpuscular Volume 90 fL (79-100) Mean Corpuscular Hemoglobin 29 pg (25-35) Mean Corpuscular Hemoglobin Concent 32 g/dL (31-37) Red Cell Distribution Width 15.0 % (11.5-14.5) Platelet Count 353 x10^3/uL (140-400) Prothrombin Time 15.8 SEC (11.7-14.0) Prothromb Time International Ratio 1.3 (0.8-1.1) Sodium Level 133 mmol/L (136-145) Potassium Level 5.2 mmol/L (3.5-5.1) Chloride Level 94 mmol/L (98-107) Carbon Dioxide Level 24 mmol/L (21-32) Anion Gap 15 (6-14) Blood Urea Nitrogen 41 mg/dL (8-26) Creatinine 7.9 mg/dL (0.7-1.3) Estimated GFR (Cockcroft-Gault) 7.6 Glucose Level 104 mg/dL (70-99) Calcium Level 7.0 mg/dL (8.5-10.1) Total Bilirubin 0.3 mg/dL (0.2-1.0) Direct Bilirubin 0.2 mg/dL (0.0-0.2) Aspartate Amino Transf (AST/SGOT) 586 U/L (15-37) Alanine Aminotransferase (ALT/SGPT) 394 U/L (16-63) Alkaline Phosphatase 207 U/L (46-116) Ammonia < 10 mcmol/L (11-34) Total Protein 4.7 g/dL (6.4-8.2) Albumin 1.5 g/dL (3.4-5.0) Glucose (Fingerstick) 116 mg/dL (70-99) 137 mg/dL (70-99) Results All relevant outside records, renal labs, imaging studies, telemetry/EKG's were reviewed. Justicifation of Admission Dx: Justifications for Admission: Justification of Admission Dx: N/A CHANI DANIELLE MD Jun 18, 2021 14:03
[2021-06-18] MEDS ORDERED: BISACODYL 10 MG SUPP.RECT. PR PRN (14:15)
[2021-06-18] MEDS: oxyCODONE IR 5 MG TABLET PO PRN ×2 (14:23→22:37)
[2021-06-18] MEDS: POLYETHYLENE GLYCOL 3350 17 GM PACKET. PO SCH (14:23)
[2021-06-18] MEDS: DOCUSATE SODIUM 100 MG CAPSULE. PO SCH ×2 (14:23→21:00)
--- NOTE | 2021-06-18 15:00 | PN ---
DATE: 06/18/2021 SUBJECTIVE: The patient is resting, slightly propped up, continued to complain of pain in his legs and the tip of his penis. He also continues to be hypotensive. We did actually give him yesterday 2 units of packed RBCs and 500 mL of normal saline and his hemoglobin has improved from 5.7 to this morning of 8.2 and hematocrit 25.6. He apparently was dialyzed yesterday. PHYSICAL EXAMINATION: GENERAL: When I examined him, he looked pale, not jaundiced, cyanosed, no lymphadenopathy, no thyromegaly, no jugular venous distention. No limb edema. VITAL SIGNS: His heart rate was 74, blood pressure was 72/32. This measurement was done on the right radial artery; however, a repeat measurement here in the ICU showed that using cuff on the right arm showed his systolic pressure was slightly high at 84 mmHg. His temperature was 98.1, respiratory rate was 16 and oxygen saturation was 98%. HEAD, EYES, EARS, NOSE, AND THROAT: Normocephalic, atraumatic. NECK: Supple. HEART: Showed normal first and second heart sounds. No gallop, rub or murmur. CHEST: Clear to auscultation, no crepitation or rhonchi. ABDOMEN: Distended, soft, nontender, no guarding or rigidity. No organomegaly. All hernial orifice intact. Bowel sounds are normal. He is sifting dullness is positive. NEUROLOGIC: He is awake, alert, responding appropriately. All cranial nerves intact. He moves both upper extremities. He has a claw hand on the left side and has left below-knee amputation. He has multiple skin lesion consistent with calciphylaxis. ASSESSMENT: The patient has hypertension, type 2 diabetes mellitus with multiple complications including retinopathy, peripheral neuropathy and nephropathy, end-stage renal disease, on hemodialysis, had a history of DVT, for which he was on Eliquis. He has coronary artery disease, status post stent deployment. He has a non-ST segment elevation myocardial infarction. His troponin has risen dramatically. #6, life-threatening hyperkalemia that has resolved. In fact, his potassium this morning was 5.1. On arrival to the Emergency Room, his potassium was 9.5. The patient also has ascites, although there was no confirmation on the record that he has advanced liver disease. LABORATORY DATA: His lab work this morning showed a serum sodium 133, potassium 5.2, chloride 94, bicarbonate 24, anion gap of 15, BUN 41, creatinine 7.9. Estimated GFR was 7.6, blood glucose was 104. Lactic acid is 1.2, calcium was 7.1. Total bilirubin is normal; however, AST, ALT, alkaline phosphatase are elevated. Ammonia was less than 10. Total protein was 4.7, albumin was 1.5. His white cell count was 10,500, hemoglobin 8.2, hematocrit 25.6, MCV 90 and platelet count 353,000. As patient continued to be hypotensive and requires hemodialysis he was transferred to the ICU to be started on Levophed drip. The patient was seen in consultation by the Gastroenterology team and the plan is to continue isolation as he is COVID positive, although he is asymptomatic. I held his Plavix and aspirin. Meanwhile, we will continue with all his other medication. We will continue to monitor his blood sugar and adjust insulin as needed. He is on insulin sliding scale before meals. Continue with Protonix for possible GI bleed. I will hold all his antihypertensive medication for now and introduce them slowly one by one after his improvement. CANDY/STEPHENIE/DAINA DR: Nelson TID: [id number]
[2021-06-18] MEDS ORDERED: MIDODRINE 5 MG TABLET PO ONE ×2 (15:15→15:30)
[2021-06-18] MEDS: LIDOCAINE 2% TOPICAL JELLY 30GM TUBE. TP PRN (17:01)
[2021-06-18] MEDS: ATORVASTATIN CALCIUM 40 MG TABLET. PO SCH (21:00)
[2021-06-18] MEDS: GABAPENTIN 300 MG CAPSULE. PO SCH (21:00)
[2021-06-18] MEDS: INSULIN GLARGINE SYRINGE. SQ SCH (21:01)
--- NOTE | 2021-06-18 21:32 | NUR ---
patient transferred to 648 s/p dialysis . report given to Nora
[2021-06-19] VITALS (11 sets, daily range): BP systolic 87–103; BP diastolic 50–63
[2021-06-19] MEDS: oxyCODONE IR 5 MG TABLET PO PRN (03:07)
[2021-06-19] MEDS: LIDOCAINE 2% TOPICAL JELLY 30GM TUBE. TP PRN (04:31)
[2021-06-19] MEDS: MIDODRINE 5 MG TABLET PO SCH ×3 (06:19→17:02)
[2021-06-19 06:24] LABS: HEMATOCRIT 21.3 % (39.0-53.0); RED BLOOD COUNT 2.37 x10^6/uL (4.30-5.70); RED CELL DISTRIBUTION WIDTH 15.1 % (11.5-14.5)
[2021-06-19] MEDS ORDERED: MIDODRINE 5 MG TABLET PO SCH (07:00)
[2021-06-19] MEDS ORDERED: PERFLUTREN PROTEIN-A MICROSPHR 0.22 MG/ML 3 ML VIAL. IV ONE ×2 (07:23→08:00)
[2021-06-19 07:24] LABS: ALBUMIN 1.8 g/dL (3.4-5.0); ALBUMIN/GLOBULIN RATIO 0.5 (1.0-1.7); CALCIUM 7.7 mg/dL (8.5-10.1); CREATININE 5.8 mg/dL (0.7-1.3); GFR 10.8; POTASSIUM 4.5 mmol/L (3.5-5.1); TOTAL BILIRUBIN 0.3 mg/dL (0.2-1.0); TOTAL PROTEIN 5.7 g/dL (6.4-8.2)
[2021-06-19] MEDS: POLYETHYLENE GLYCOL 3350 17 GM PACKET. PO SCH ×2 (08:00→09:00)
[2021-06-19] MEDS: INSULIN LISPRO 300 UNITS/3 ML VIAL. SQ SCH ×3 (08:00→17:00)
[2021-06-19] MEDS: ASPIRIN ENTERIC COATED 81 MG TABLET.DR. PO SCH (08:27)
[2021-06-19] MEDS: DOCUSATE SODIUM 100 MG CAPSULE. PO SCH ×2 (08:27→20:40)
[2021-06-19] MEDS: QUEtiapine 25 MG TABLET. PO SCH (08:27)
[2021-06-19] MEDS: PANTOPRAZOLE 40 MG TABLET.DR. PO SCH (08:27)
[2021-06-19] MEDS: SERTRALINE 50 MG TABLET. PO SCH (08:27)
[2021-06-19] MEDS: FOLIC/VIT B COMP W-C (RENAL) TABLET. PO SCH (08:27)
[2021-06-19] MEDS: CALCIUM ACETATE 667 MG CAPSULE PO SCH ×3 (08:27→17:00)
--- NOTE | 2021-06-19 11:02 | PDOC ---
CARDIO Progress Notes Date and Time Date of Service 06/19/2021 Time of Evaluation 1045 Subjective Subjective: No Chest Pain, No shortness of breath, No Palpitations, Other (asleep) Vitals Vitals Vital Signs Date Time Temp Pulse Resp B/P (MAP) Pulse Ox O2 Delivery O2 Flow Rate FiO2 06/19/21 10:10 98.0 77 20 89/50 98.0 06/19/21 07:55 Room Air 06/19/21 07:00 94 Weight Weight [ ] Input and Output Intake and Output Intake and Output 06/19/21 06:59 Intake Total 472 ml Output Total 0 ml Balance 472 ml Intake Oral 240 ml IV Total 232 ml Output Urine Total 0 ml Laboratory Labs Laboratory Tests Test 06/18/21 12:48 06/18/21 17:06 06/19/21 04:30 06/19/21 07:33 Glucose (Fingerstick) 137 mg/dL (70-99) 145 mg/dL (70-99) 125 mg/dL (70-99) White Blood Count 12.0 x10^3/uL (4.0-11.0) Red Blood Count 2.37 x10^6/uL (4.30-5.70) Hemoglobin 7.0 g/dL (13.0-17.5) Hematocrit 21.3 % (39.0-53.0) Mean Corpuscular Volume 90 fL (79-100) Mean Corpuscular Hemoglobin 30 pg (25-35) Mean Corpuscular Hemoglobin Concent 33 g/dL (31-37) Red Cell Distribution Width 15.1 % (11.5-14.5) Platelet Count 355 x10^3/uL (140-400) Sodium Level 134 mmol/L (136-145) Potassium Level 4.5 mmol/L (3.5-5.1) Chloride Level 98 mmol/L (98-107) Carbon Dioxide Level 26 mmol/L (21-32) Anion Gap 10 (6-14) Blood Urea Nitrogen 28 mg/dL (8-26) Creatinine 5.8 mg/dL (0.7-1.3) Estimated GFR (Cockcroft-Gault) 10.8 BUN/Creatinine Ratio 5 (6-20) Glucose Level 143 mg/dL (70-99) Calcium Level 7.7 mg/dL (8.5-10.1) Iron Level 34 ug/dL (65-175) Total Iron Binding Capacity 74 ug/dL (250-450) Iron Saturation 46 % (15-34) Ferritin 7417 ng/mL (26-388) Total Bilirubin 0.3 mg/dL (0.2-1.0) Aspartate Amino Transf (AST/SGOT) 257 U/L (15-37) Alanine Aminotransferase (ALT/SGPT) 301 U/L (16-63) Alkaline Phosphatase 305 U/L (46-116) Total Protein 5.7 g/dL (6.4-8.2) Albumin 1.8 g/dL (3.4-5.0) Albumin/Globulin Ratio 0.5 (1.0-1.7) Test 06/19/21 10:44 Glucose (Fingerstick) 117 mg/dL (70-99) Physical Exam HEENT: Neck Supple W Full Motion Chest: Symmetric LUNGS: Other (diminished) Heart: RRR (intermittent V pacing) Abdomen: Soft N/T Extremities: Other (anasarca) Neurology: alert, oriented, follow commands Assessment Assessment 1. Severe anemia with possible GI bleed: no obvious bleed getting transfusion currently 2. NSTEMI: possibly demand mediated with multiple culprits CP free 3. Shock: multifactorial. BP stable and marginal 4. ESRD with severe hyperkalemia: due to missed HD 5. DM2: per PCP 6. CAD: [facility] records reviewed and noted last [facility] 01/2021 at [facility] but no interve ntion at that time and has had stent to RCA before. No evidence of recent stent placement 7. Hx of DVT: on home eliquis 8. Anasarca with increasing transamintis/coagulopathy: GI following 9. Protein malnutrition 10. Covid-19: denies vaccination 12. Hx of CVA: MRI in 2016 Scattered tiny foci of restricted diffusion in different vascular territories suggesting embolic acute infarcts. 13. HLP: on statin 14. Acute on chronic CHF with liked reduced EF: appears compensated 15. 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 Continue ECASA, and will hold plavix for now and monitor H/H. Transfuse as warranted. No mention of DVT hx per records review but noted with suspected with embolic stroke which could potentially led to eliquis use but no further recent imaging reviewed to even ascertain this and prior TTE at [facility] did not reveal any cardiac thrombus. At this time no tachyarrhythmias noted and not a candidate for anticoagulation given his anemia. Will obtain limited TTE 2. Secondary prevention measures as tolerated. hold BP meds for now. 3. Fluid off loading per HD 4. Off levophed. Continue midodrine. Monitor BP trend Justicifation of Admission Dx: Justifications for Admission: Justification of Admission Dx: N/A MATT FARLEY PALLIATIVE CARE COORDINATOR Jun 19, 2021 11:02
--- NOTE | 2021-06-19 11:41 | PDOC ---
DATE OF SERVICE DATE: 06/19/21 TIME: 11:36 SUBJECTIVE ROS Transferred out of ICU Stable OBJECTIVE Vital Signs Vital Signs Date Time Temp Pulse Resp B/P (MAP) Pulse Ox O2 Delivery O2 Flow Rate FiO2 06/19/21 10:10 98.0 77 20 89/50 98.0 06/19/21 07:55 Room Air 06/19/21 07:00 94 I & 0 Intake and Output 06/19/21 07:00 Intake Total 472 ml Output Total 0 ml Balance 472 ml Intake Oral 240 ml IV Total 232 ml Output Urine Total 0 ml PHYSICAL EXAM Physical Exam GENERAL: NAD, resting with eyes closed HEEN OM moist NECK: Supple. HEART: S1S2, SR with LBBB LUNGS: Clear to auscultation,decreased at bases Non labored ABDOMEN: soft, nontender.Obese NEUROLOGIC: awake, alert,Grossly normal No Rodriguez DERM No Rash DIAGNOSIS/ASSESSMENT Assessment & Plan ESRD- On HD MWF. He has been on Dialysis since 2017. No indication for dialysis today OP unit [facility]- Under Dr Godoy's care(from [facility]) , per Nursing staff- chronic non compliance with treatments, Dietary restrictions- drinks 2 lts Mountain dew/day etc HyperKalemia severe - POA - Dialyzed emergently , K normal today Anemia- s/p PRBC on 06/17 . Hgb dropped this am again ~7 . Defer to primary and GI . Ferritin elevated 2/2 Liver related NSTEMI: Per cardiology CAD: reported 2 stents placed about a month ago at [facility] Hx of DVT: on home eliquis Covid-19: Not Vaccinated Hx of CVA: MRI in 2016 Scattered tiny foci of restricted diffusion in different vascular territories suggesting embolic acute infarcts. Hx of Hypertension- low BP's since 06/17 Cardiology Consulted . Poorly controlled type 2 diabetes mellitus, diabetic retinopathy. Ascites and nonalcoholic steatohepatitis - Per [facility] staff he is supposed to be on scheduled paracentesis , non compliant Peritoneal nodularities and greater omental fat induration --can be seen in p eritoneal carcinomatosis. Recommend diagnostic paracentesis cytology. Similar multiple prominent to mildly enlarged upper abdominal, retroperitoneal and bilateral pelvic lymph node indeterminate. Defer to Primary COMMENT/RELEVANT DATA Meds Current Medications Medications (Trade) Dose Ordered Sig/Damien Start Time Stop Time Status Last Admin Dose Admin Albumin Human 200 ml @ 200 mls/hr 1X PRN PRN 06/18/21 13:45 06/18/21 19:44 DC 06/18/21 17:29 200 MLS/HR Aspirin (Ecotrin) 81 mg DAILYWBKFT 06/19/21 08:00 06/19/21 08:27 81 MG Atorvastatin Calcium (Lipitor) 40 mg QHS 06/15/21 23:00 06/18/21 21:00 40 MG Bisacodyl (Dulcolax Supp) 10 mg PRN DAILY PRN 06/18/21 14:15 Calcium Acetate (Phoslo) 667 mg TIDWMEALS 06/16/21 08:00 06/19/21 08:27 667 MG Carvedilol (Coreg) 50 mg BIDWMEALS 06/16/21 08:00 06/18/21 10:28 DC 06/16/21 18:18 50 MG Clonidine HCl (Catapres) 0.1 mg PRN Q8HRS PRN 06/15/21 22:30 Clopidogrel Bisulfate (Plavix) 75 mg DAILY 06/16/21 09:00 06/17/21 11:35 DC 06/17/21 10:56 75 MG Dextrose (Dextrose 50%-Water Syringe) 12.5 gm PRN Q15MIN PRN 06/15/21 20:45 Diphenhydramine HCl (Benadryl) 25 mg PRN 1X PRN 06/17/21 14:30 06/18/21 14:29 DC 06/18/21 12:43 25 MG Docusate Sodium (Colace) 100 mg BID 06/18/21 14:15 06/19/21 08:27 100 MG Furosemide (Lasix) 80 mg DAILY 06/16/21 09:00 06/18/21 10:28 DC 06/16/21 09:00 80 MG Gabapentin (Neurontin) 300 mg QHS 06/15/21 23:00 06/18/21 21:00 300 MG Hydralazine HCl (Apresoline) 100 mg BID 06/15/21 23:00 06/18/21 10:28 DC Hydroxyzine HCl (Atarax) 25 mg PRN Q6HRS PRN 06/15/21 22:30 Info (PHARMACY MONITORING -- do not chart) 1 each PRN DAILY PRN 06/18/21 13:45 Insulin Glargine (Lantus Syringe) 32 unit QHS 06/15/21 23:00 06/18/21 21:01 32 UNIT Insulin Human Lispro (HumaLOG) 0-7 UNITS TIDWMEALS 06/16/21 08:00 Lidocaine HCl (Xylocaine 2% Topical 30gm Tube) 1 daljit PRN TID PRN 06/18/21 16:15 06/19/21 04:31 1 DALJIT Midodrine (Proamatine) 5 mg 1X ONCE 06/18/21 15:30 06/18/21 15:31 DC 06/18/21 17:00 5 MG Non-Formulary Medication (Sucroferric Oxyhydroxide (Velphoro)) 1 tab TID 06/16/21 09:00 06/17/21 11:17 DC Norepinephrine Bitartrate 8 mg/ Dextrose 258 ml @ 25.445 mls/ hr CONT PRN 06/18/21 10:45 06/18/21 11:05 25.445 MLS/HR Ondansetron HCl (Zofran) 4 mg PRN Q4HRS PRN 06/18/21 13:30 Oxycodone HCl (Roxicodone) 10 mg PRN Q4HRS PRN 06/18/21 16:15 06/19/21 03:07 10 MG Pantoprazole Sodium (Protonix) 40 mg DAILYAC 06/16/21 07:30 06/19/21 08:27 40 MG Polyethylene Glycol (miraLAX PACKET) 17 gm DAILY 06/18/21 14:15 06/18/21 14:23 17 GM Quetiapine Fumarate (SEROquel) 25 mg DAILY 06/16/21 09:00 06/19/21 08:27 25 MG Sertraline HCl (Zoloft) 100 mg DAILY 06/16/21 09:00 06/19/21 08:27 100 MG Sodium Chloride 1,000 ml @ 400 mls/hr Q2H30M PRN 06/18/21 13:45 06/19/21 01:44 DC Vitamin B Complex/ Vitamin C (Yajaira-Allan) 1 tab DAILY 06/16/21 09:00 06/19/21 08:27 1 TAB Lab Laboratory Tests Test 06/18/21 12:48 06/18/21 17:06 06/19/21 04:30 06/19/21 07:33 Glucose (Fingerstick) 137 mg/dL (70-99) 145 mg/dL (70-99) 125 mg/dL (70-99) White Blood Count 12.0 x10^3/uL (4.0-11.0) Red Blood Count 2.37 x10^6/uL (4.30-5.70) Hemoglobin 7.0 g/dL (13.0-17.5) Hematocrit 21.3 % (39.0-53.0) Mean Corpuscular Volume 90 fL (79-100) Mean Corpuscular Hemoglobin 30 pg (25-35) Mean Corpuscular Hemoglobin Concent 33 g/dL (31-37) Red Cell Distribution Width 15.1 % (11.5-14.5) Platelet Count 355 x10^3/uL (140-400) Sodium Level 134 mmol/L (136-145) Potassium Level 4.5 mmol/L (3.5-5.1) Chloride Level 98 mmol/L (98-107) Carbon Dioxide Level 26 mmol/L (21-32) Anion Gap 10 (6-14) Blood Urea Nitrogen 28 mg/dL (8-26) Creatinine 5.8 mg/dL (0.7-1.3) Estimated GFR (Cockcroft-Gault) 10.8 BUN/Creatinine Ratio 5 (6-20) Glucose Level 143 mg/dL (70-99) Calcium Level 7.7 mg/dL (8.5-10.1) Iron Level 34 ug/dL (65-175) Total Iron Binding Capacity 74 ug/dL (250-450) Iron Saturation 46 % (15-34) Ferritin 7417 ng/mL (26-388) Total Bilirubin 0.3 mg/dL (0.2-1.0) Aspartate Amino Transf (AST/SGOT) 257 U/L (15-37) Alanine Aminotransferase (ALT/SGPT) 301 U/L (16-63) Alkaline Phosphatase 305 U/L (46-116) Total Protein 5.7 g/dL (6.4-8.2) Albumin 1.8 g/dL (3.4-5.0) Albumin/Globulin Ratio 0.5 (1.0-1.7) Test 06/19/21 10:44 Glucose (Fingerstick) 117 mg/dL (70-99) Results All relevant outside records, renal labs, imaging studies, telemetry/EKG's were reviewed. Justicifation of Admission Dx: Justifications for Admission: Justification of Admission Dx: N/A CHANI DANIELLE MD Jun 19, 2021 11:41
--- NOTE | 2021-06-19 11:58 | PDOC ---
Date of Service: DATE: 06/19/21 TIME: 11:43 Subjective: Subjective: No bleeding. Asks what's the matter with his legs. Tolerating diet. Asks what the records from [facility] showed. Objective: Objective: Nurse present - no bleeding, more transfusions planned. 2 stools charted yesterday. Refused Miralax today. Vital Signs: Vital Signs Date Time Temp Pulse Resp B/P (MAP) Pulse Ox O2 Delivery O2 Flow Rate FiO2 06/19/21 10:10 98.0 77 20 89/50 98.0 06/19/21 07:55 Room Air 06/19/21 07:00 94 Labs: Laboratory Tests Test 06/18/21 12:48 06/18/21 17:06 06/19/21 04:30 06/19/21 07:33 Glucose (Fingerstick) 137 mg/dL 145 mg/dL 125 mg/dL White Blood Count 12.0 x10^3/uL Red Blood Count 2.37 x10^6/uL Hemoglobin 7.0 g/dL Hematocrit 21.3 % Mean Corpuscular Volume 90 fL Mean Corpuscular Hemoglobin 30 pg Mean Corpuscular Hemoglobin Concent 33 g/dL Red Cell Distribution Width 15.1 % Platelet Count 355 x10^3/uL Sodium Level 134 mmol/L Potassium Level 4.5 mmol/L Chloride Level 98 mmol/L Carbon Dioxide Level 26 mmol/L Anion Gap 10 Blood Urea Nitrogen 28 mg/dL Creatinine 5.8 mg/dL Estimated GFR (Cockcroft-Gault) 10.8 BUN/Creatinine Ratio 5 Glucose Level 143 mg/dL Calcium Level 7.7 mg/dL Iron Level 34 ug/dL Total Iron Binding Capacity 74 ug/dL Iron Saturation 46 % Ferritin 7417 ng/mL Total Bilirubin 0.3 mg/dL Aspartate Amino Transf (AST/SGOT) 257 U/L Alanine Aminotransferase (ALT/SGPT) 301 U/L Alkaline Phosphatase 305 U/L Total Protein 5.7 g/dL Albumin 1.8 g/dL Albumin/Globulin Ratio 0.5 Test 06/19/21 10:44 Glucose (Fingerstick) 117 mg/dL PE: GEN: COVID isolation - visual exam done - nurse in room, pt laying flat on bed LUNGS: on room air HEART: RR per chart ABD: large/distended - stable in appearance NEURO/PSYCH: A & O x 3 A/P: Chronic anemia - transfusion requirements ongoing - recent scopes at [facility] showed stercoral rectal ulcer Ascites - small per US w/ past paracentesis - LFTs fluctuating COVID, hypotension, CHF, ESRD, non-compliance H/o CAD, CVA, ?DVT - on ASA for now -- Monitor labs, transfuse as needed. Continue PPI and stool softeners/laxatives. Paracentesis PRN. Justicifation of Admission Dx: Justifications for Admission: Justification of Admission Dx: N/A NATASHA MANZO Jun 19, 2021 11:58
--- NOTE | 2021-06-19 14:59 | NUR ---
SS following up with discharge planning. SS reviewed pt chart and discussed with pt RN. Pt is currently on room air. COVID19 positive. Pt received unit of blood today. Hemodialysis. Dr. Burkett requesting prison unit with inpatient dialysis. Dr. Burkett requested referrals to [facility], or [facility]. PT/OT ordered. SS will continue to follow for discharge planning.
--- NOTE | 2021-06-19 15:03 | NUR ---
Wound/Ostomy Care Wound Type/Assessment: Wound care consult for wound to penis. 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 Pt also has sme small indurated areas to bilateral inner thighs that are also calcium deposits. Pt states he is reciveing treatment during dialysis. Cleansed, pictured and measured wound. Treatment Recommendations/Plan: Cleanse area with warm wash cloth, apply lidocaine jelly and medihoney gel, repeat daily. Education provided: WC POC and PU prevention Offloading surface/device: self turn Recommended Referrals/Tests: follow up with urology after dc Discharge Recommendations for dressings: Recommend Santyl ointment daily after discharge to be prescribed by PCP
--- NOTE | 2021-06-19 15:45 | PN ---
DATE: 06/19/2021 SUBJECTIVE: The patient is resting slightly propped up in bed, in no apparent distress. He is very lethargic, but arousable. He continued to be somewhat hypotensive; however, he is afebrile. PHYSICAL EXAMINATION: GENERAL: When I examined him, he was pale, not jaundiced, cyanosed, no lymphadenopathy, no thyromegaly, no jugular venous distention. No lower limb edema. VITAL SIGNS: His heart rate was 77, blood pressure was 89/50, temperature was 98, respiratory rate 20, and oxygen saturation was 94% on room air. HEAD, EYES, EARS, NOSE, AND THROAT: Normocephalic and atraumatic. NECK: Supple. HEART: Showed normal first and second heart sounds, no gallop or murmur. CHEST: Clear to auscultation, no crepitation or rhonchi. ABDOMEN: Distended, soft, nontender. NEUROLOGIC: He was very lethargic, but arousable. All cranial nerves intact. He moves all extremities without difficulty. He has left below-knee amputation. His intake was 1200, no output was recorded. LABORATORY DATA: As of this morning, his white cell count was 12,000, hemoglobin 7, hematocrit 21, MCV 90 and platelet count of 355,000. His chemistry with a serum sodium 134, potassium 4.5, chloride 98, bicarbonate 26, anion gap of 10, BUN 28, creatinine 5.8. Estimated GFR was 10.8. Blood glucose 143, calcium was 7.7. Serum iron, TIBC and iron saturation are all consistent with replete iron stores. is extremely high at 7417. Whether this number indicates that he has also hemochromatosis is something I will discuss with the Gastroenterology team. He has also normal bilirubin; however, AST, ALT, alkaline phosphatase are elevated, likely due to congestive hepatopathy. His total protein was 5.7, albumin was 1.8. His prothrombin time was 15.8, INR 1.3. His hepatitis A IgM antibody was nonreactive. Hepatitis B surface antigen and hepatitis B core IgM antibody were nonreactive. Hepatitis C IgG antibody was nonreactive. ASSESSMENT: 1. Life-threatening hyperkalemia, resolved. 2. End-stage renal disease, on hemodialysis Wednesday, Wednesday and Wednesday. 3. Severe anemia. He has received already 2 units of packed RBCs and his H and H has dropped down again to 7 and 21. Other issues include hypotension for which he is now on midodrine 10 mg 3 times a day, severe peripheral vascular disease, status post left below-knee amputation and calciphylaxis. PLAN: To go ahead and transfuse 1 unit of packed RBCs. I will consult physical and occupational therapy and also consult director social to see if he can be discharged to a skilled nursing with in-house hemodialysis unit. BRIANDA/DAINA DR: Nelson TID: [id number]
[2021-06-19] MEDS: ONDANSETRON PF 4 MG/2 ML VIAL. IVP PRN (20:30)
[2021-06-19] MEDS: GABAPENTIN 300 MG CAPSULE. PO SCH (20:40)
[2021-06-19] MEDS: INSULIN GLARGINE SYRINGE. SQ SCH (23:08)
[2021-06-20 02:37] VITALS: BP 85/70
[2021-06-20] MEDS: LIDOCAINE 2% TOPICAL JELLY 30GM TUBE. TP PRN (03:42)
[2021-06-20 07:00] VITALS: BP 76/56
[2021-06-20] MEDS: MIDODRINE 5 MG TABLET PO SCH ×3 (07:00→16:34)
[2021-06-20] MEDS: INSULIN LISPRO 300 UNITS/3 ML VIAL. SQ SCH ×3 (08:00→16:23)
[2021-06-20 08:16] LABS: HEMOGLOBIN 8.6 g/dL (13.0-17.5)
[2021-06-20] MEDS: SERTRALINE 50 MG TABLET. PO SCH (08:22)
[2021-06-20] MEDS: CALCIUM ACETATE 667 MG CAPSULE PO SCH ×3 (08:22→16:33)
[2021-06-20] MEDS: FOLIC/VIT B COMP W-C (RENAL) TABLET. PO SCH (08:22)
[2021-06-20] MEDS: ASPIRIN ENTERIC COATED 81 MG TABLET.DR. PO SCH (08:22)
[2021-06-20] MEDS: DOCUSATE SODIUM 100 MG CAPSULE. PO SCH ×2 (08:22→21:24)
[2021-06-20] MEDS: QUEtiapine 25 MG TABLET. PO SCH (08:22)
[2021-06-20] MEDS: PANTOPRAZOLE 40 MG TABLET.DR. PO SCH (08:23)
[2021-06-20] MEDS: POLYETHYLENE GLYCOL 3350 17 GM PACKET. PO SCH (08:28)
[2021-06-20] MEDS ORDERED: DIALYSIS PATIENT. MC PRN ×2 (08:30)
[2021-06-20] MEDS ORDERED: IV NORMAL SALINE 1000ML BAG 1,000 ML IV PRN ×2 (08:30)
[2021-06-20] MEDS ORDERED: ALBUMIN HUMAN 25% 200 ML IV PRN (08:30)
[2021-06-20] MEDS: oxyCODONE IR 5 MG TABLET PO PRN ×2 (08:32→16:33)
[2021-06-20 08:36] LABS: CALCIUM 7.7 mg/dL (8.5-10.1); CREATININE 7.2 mg/dL (0.7-1.3); GFR 8.4; PHOSPHORUS 7.4 mg/dL (2.6-4.7)
[2021-06-20] MEDS: ONDANSETRON PF 4 MG/2 ML VIAL. IVP PRN (09:08)
[2021-06-20 09:18] LABS: POTASSIUM 5.3 mmol/L (3.5-5.1)
--- NOTE | 2021-06-20 09:58 | PN ---
DATE: 06/20/2021 SUBJECTIVE: The patient is resting, slightly propped up in bed, in no apparent respiratory distress. He apparently had an episode of emesis this morning after he got his pain medication for which he received Zofran. His blood sugars seem to be extremely high this morning for some reason at 511 and consistent with all other measurements, so I checked his order to check his blood sugar again with a different glucometer. PHYSICAL EXAMINATION: GENERAL: On examining him, he was pale, no jaundice, cyanosis or thyromegaly. No jugular venous distention. No lower limb edema. VITAL SIGNS: His heart rate was 66, blood pressure was 85/70, temperature was 96.4, respiratory rate 20, and oxygen saturation was 94% on 2 liters of oxygen. HEAD, EYES, EARS, NOSE, AND THROAT: Normocephalic, atraumatic. NECK: Supple. HEART: Normal first and second heart sounds. No gallop or murmur. CHEST: Shows central trachea, equal bilateral expansion, air entry, vesicular breath sounds. No crepitation or rhonchi. ABDOMEN: Markedly distended, soft, nontender. NEUROLOGIC: He is awake, alert, responding appropriately. All his cranial nerves are intact. He moves upper extremities without difficulty. He has left knee amputation. He is extremely oliguric, completely anuric. His intake was 1000. LABORATORY DATA: As of this morning, his hemoglobin was 8.6, hematocrit 27. His blood sugar seems to be extremely high and inconsistent with other lab values. ASSESSMENT: 1. Life-threatening hyperkalemia, resolved. 2. End-stage renal disease, on hemodialysis Wednesday, Wednesday, Wednesday. 3. Severe anemia for which he received at least so far 3 units of packed RBCs. This morning, H and H was 8.5 and 27. 4. Other medical problems including: A. Hypertension for which he is now on midodrine 10 mg 3 times a day. I discontinued his Coreg and hydralazine. B. Severe peripheral vascular disease, status post left knee amputation. C. Calciphylaxis. 5. He has impaired liver enzymes and ascites that required multiple paracenteses. His serum ferritin was extremely high, which raised the possibility that may have hemochromatosis. PLAN: Plan is to continue to monitor his H and H and transfuse as needed. Continue with hemodialysis. Continue with wound care. I did consult the social media content manager to see if he can be admitted to a longterm facility with in-house dialysis unit. JULIANNA DR: Nelson TID: [id number]
--- NOTE | 2021-06-20 10:24 | PDOC ---
MATT FARLEY INCLUSION SPECIALIST 06/20/21 1024: CARDIO Progress Notes Date and Time Date of Service 06/20/2021 Time of Evaluation 0835 Subjective Subjective: No Chest Pain, No shortness of breath, No Palpitations Vitals Vitals Vital Signs Date Time Temp Pulse Resp B/P (MAP) Pulse Ox O2 Delivery O2 Flow Rate FiO2 06/20/21 07:00 96.4 60 20 76/56 (63) 88 Nasal Cannula 2.0 96.4 Weight Weight [ ] Input and Output Intake and Output Intake and Output 06/20/21 07:00 Intake Total 300 ml Balance 300 ml Intake Oral 300 ml Laboratory Labs Laboratory Tests Test 06/19/21 10:44 06/19/21 17:05 06/19/21 18:45 06/19/21 23:05 Glucose (Fingerstick) 117 mg/dL (70-99) 90 mg/dL (70-99) 92 mg/dL (70-99) 171 mg/dL (70-99) Test 06/20/21 07:45 06/20/21 07:48 06/20/21 09:39 Hemoglobin 8.6 g/dL (13.0-17.5) Hematocrit 27.0 % (39.0-53.0) Sodium Level 137 mmol/L (136-145) Potassium Level 5.3 mmol/L (3.5-5.1) Chloride Level 99 mmol/L (98-107) Carbon Dioxide Level 26 mmol/L (21-32) Anion Gap 12 (6-14) Blood Urea Nitrogen 35 mg/dL (8-26) Creatinine 7.2 mg/dL (0.7-1.3) Estimated GFR (Cockcroft-Gault) 8.4 Glucose Level 110 mg/dL (70-99) Calcium Level 7.7 mg/dL (8.5-10.1) Phosphorus Level 7.4 mg/dL (2.6-4.7) Glucose (Fingerstick) 511 mg/dL (70-99) 90 mg/dL (70-99) Physical Exam HEENT: Neck Supple W Full Motion Chest: Symmetric LUNGS: Other (diminished) Heart: RRR (intermittent V pacing) Abdomen: Soft N/T Extremities: Other (anasarca) Neurology: alert, oriented, follow commands Assessment Assessment 1. Severe anemia with possible GI bleed: no obvious bleed getting transfusion currently 2. NSTEMI: possibly demand mediated with multiple culprits CP free 3. Shock: multifactorial. BP stable and marginal 4. ESRD with severe hyperkalemia: due to missed HD 5. DM2: per PCP 6. CAD: [facility] records reviewed and noted last [facility] 01/2021 at [facility] but no intervention at that time and has had stent to RCA before. No evidence of recent stent placement 7. Hx of DVT: on home eliquis 8. Anasarca with increasing transamintis/coagulopathy: GI following 9. Protein malnutrition 10. Covid-19: denies vaccination 12. Hx of CVA: MRI in 2016 Scattered tiny foci of restricted diffusion in different vascular territories suggesting embolic acute infarcts. 13. HLP: on statin 14. 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 Continue ECASA, and will hold plavix for now and monitor H/H. Transfuse as warranted. No mention of DVT hx per records review but noted with suspected with embolic stroke which could potentially led to eliquis use but no further recent imaging reviewed to even ascertain this and prior TTE at [facility] did not reveal any cardiac thrombus. At this time no tachyarrhythmias noted and not a candidate for anticoagulation given his anemia. Will TTE 2. Secondary prevention measures as tolerated. hold BP meds for now. 3. Fluid off loading per HD 4. Continue midodrine. Monitor BP trend. Hold statin for now with elevated LFTs Justicifation of Admission Dx: Justifications for Admission: Justification of Admission Dx: N/A TJ PRESTON MD 06/20/21 1423: CARDIO Progress Notes Assessment Assessment Patient seen and examined I agree with our nurse practitioners assessment and plan. Severe anemia with possible GI bleed: no obvious bleed getting transfusion currently. Continuing to monitor. NSTEMI: possibly demand mediated with multiple culprits CP free Shock: multifactorial. BP stable and marginal ESRD with severe hyperkalemia: due to missed HD DM2: per PCP CAD: [facility] records reviewed and noted last [facility] 01/2021 at [facility] but no intervention at that time and has had stent to RCA before. No evidence of recent stent placement Hx of DVT: Had been on home eliquis Anasarca with increasing transamintis/coagulopathy: GI following Covid-19: denies vaccination Hx of CVA: MRI in 2016 Scattered tiny foci of restricted diffusion in different vascular territories suggesting embolic acute infarcts. 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
--- NOTE | 2021-06-20 10:39 | CARD ---
MR#: [id number] Date of Study: 06/19/2021 Ordering Physician: MATT FARLEY, Referring Physician: MATT FARLEY Tech: Maryanne Luis RUST APPROVED REPORT EXAM: Two-dimensional and M-mode echocardiogram with Doppler and color Doppler. Other Information Quality : Average Rhythm : NSR INDICATION Congestive Heart Failure RISK FACTORS Hypertension Obesity Hyperlipidemia Diabetes 2D DIMENSIONS Left Atrium(2D)5.9 (1.6-4.0cm)IVSd1.4 (0.7-1.1cm) Aortic Root(2D)3.5 (2.0-3.7cm)LVDd4.9 (3.9-5.9cm) LVOT Diameter2.2 (1.8-2.4cm)PWd1.8 (0.7-1.1cm) LVDs3.6 (2.5-4.0cm)FS (%) 25.4 % SV55.9 ml Tricuspid Valve TR P. [id number] Peak Gr.30mmHg LEFT VENTRICLE Limited echocardiogram for LV function. The left ventricle is normal size. There is mild to moderate concentric left ventricular hypertrophy. The left ventricular systolic function is normal and the ej ection fraction is within normal range. LV ejection fraction of 55 to 60%. There is normal LV segment al wall motion. RIGHT VENTRICLE The right ventricle is normal size. There is normal right ventricular wall thickness. The right ventr icular systolic function is normal. ATRIA The left atrium size is normal. The right atrium size is normal. AORTIC VALVE The aortic valve is normal in structure and function. There is no significant aortic valvular stenosi s. MITRAL VALVE The mitral valve is has areas of calcification on the valve and possibly in the left atrium. There is no evidence of mitral valve prolapse. There is no mitral valve stenosis. TRICUSPID VALVE The tricuspid valve is normal in structure and function. Doppler and Color Flow revealed mild tricusp id regurgitation. Estimated PAP 35 mmHg. There is no tricuspid valve stenosis. GREAT VESSELS The IVC is normal in size and collapses >50% with inspiration. PERICARDIAL EFFUSION There is no evidence of significant pericardial effusion. Critical Notification Critical Value: No <Conclusion> Limited echocardiogram for LV function. The left ventricle is normal size. The left ventricular systolic function is normal and the ejection fraction is within normal range. LV ejection fraction of 55 to 60%. There is normal LV segmental wall motion. There is mild to moderate concentric left ventricular hypertrophy. The aortic valve is normal in structure and function. There is no significant aortic valvular stenosis. The mitral valve is has areas of calcification on the valve and possibly in the left atrium. There is no mitral valve stenosis. Doppler and Color Flow revealed mild tricuspid regurgitation. Estimated PAP 35 mmHg. Signed by : Zion Whitney MD Electronically Approved : 06/20/2021 10:39:03
--- NOTE | 2021-06-20 10:59 | PDOC ---
DATE OF SERVICE DATE: 06/20/21 TIME: 10:54 SUBJECTIVE ROS Seen during dialysis,Stable , BP's low OBJECTIVE Vital Signs Vital Signs Date Time Temp Pulse Resp B/P (MAP) Pulse Ox O2 Delivery O2 Flow Rate FiO2 06/20/21 08:00 Room Air 2.0 06/20/21 07:00 96.4 60 20 76/56 (63) 88 96.4 I & 0 Intake and Output 06/20/21 07:00 Intake Total 300 ml Balance 300 ml Intake Oral 300 ml PHYSICAL EXAM Physical Exam GENERAL: NAD, resting with eyes closed HEEN OM moist NECK: Supple. HEART: S1S2, SR with LBBB LUNGS: Clear to auscultation,decreased at bases Non labored ABDOMEN: soft, nontender.Obese NEUROLOGIC: awake, alert,Grossly normal No Rodriguez DERM No Rash DIAGNOSIS/ASSESSMENT Assessment & Plan ESRD- On HD MWF. He has been on Dialysis since 2017. Seen duriNg treatment , tolerating well, BP's low, UF 1-2 as tolerated with IV Albumin. Continue a sordered. José Antonio CANO . Increased dose of Midodrine on 06/18 OP unit LE [facility]- Under Dr Godoy's care( [facility] group) , per Nursing s taff- chronic non compliance with treatments, Dietary restrictions- drinks 2 lts [place] dew/day etc HyperKalemia severe - POA - Dialyzed emergently , Anemia- s/p PRBC . Ferritin elevated NSTEMI: Per cardiology CAD: reported 2 stents placed about a month ago at [facility] Hx of DVT: on home eliquis Covid-19: Not Vaccinated Hx of CVA: MRI in 2016 Scattered tiny foci of restricted diffusion in different vascular territories suggesting embolic acute infarcts. Hx of Hypertension- low BP's since 06/17 Cardiology Consulted . Poorly controlled type 2 diabetes mellitus, diabetic retinopathy. Ascites and nonalcoholic steatohepatitis - Per [facility] staff he is supposed to be on scheduled paracentesis , non compliant Peritoneal nodularities and greater omental fat induration --can be seen in peritoneal carcinomatosis. Recommend diagnostic paracentesis cytology. Similar multiple prominent to mildly enlarged upper abdominal, retroperitoneal and bilateral pelvic lymph node indeterminate. Defer to Primary COMMENT/RELEVANT DATA Meds Current Medications Medications (Trade) Dose Ordered Sig/Damien Start Time Stop Time Status Last Admin Dose Admin Albumin Human 200 ml @ 200 mls/hr 1X PRN PRN 06/20/21 08:30 06/20/21 14:29 Aspirin (Ecotrin) 81 mg DAILYWBKFT 06/19/21 08:00 06/20/21 08:22 81 MG Atorvastatin Calcium (Lipitor) 40 mg QHS 06/15/21 23:00 06/19/21 14:04 DC 06/18/21 21:00 40 MG Bisacodyl (Dulcolax Supp) 10 mg PRN DAILY PRN 06/18/21 14:15 Calcium Acetate (Phoslo) 667 mg TIDWMEALS 06/16/21 08:00 06/20/21 08:22 667 MG Carvedilol (Coreg) 50 mg BIDWMEALS 06/16/21 08:00 06/18/21 10:28 DC 06/16/21 18:18 50 MG Clonidine HCl (Catapres) 0.1 mg PRN Q8HRS PRN 06/15/21 22:30 Clopidogrel Bisulfate (Plavix) 75 mg DAILY 06/16/21 09:00 06/17/21 11:35 DC 06/17/21 10:56 75 MG Dextrose (Dextrose 50%-Water Syringe) 12.5 gm PRN Q15MIN PRN 06/15/21 20:45 Diphenhydramine HCl (Benadryl) 25 mg PRN 1X PRN 06/17/21 14:30 06/18/21 14:29 DC 06/18/21 12:43 25 MG Docusate Sodium (Colace) 100 mg BID 06/18/21 14:15 06/20/21 08:22 100 MG Furosemide (Lasix) 80 mg DAILY 06/16/21 09:00 06/18/21 10:28 DC 06/16/21 09:00 80 MG Gabapentin (Neurontin) 300 mg QHS 06/15/21 23:00 06/19/21 20:40 300 MG Hydralazine HCl (Apresoline) 100 mg BID 06/15/21 23:00 06/18/21 10:28 DC Hydroxyzine HCl (Atarax) 25 mg PRN Q6HRS PRN 06/15/21 22:30 Info (PHARMACY MONITORING -- do not chart) 1 each PRN DAILY PRN 06/20/21 08:30 Insulin Glargine (Lantus Syringe) 32 unit QHS 06/15/21 23:00 06/19/21 23:08 32 UNIT Insulin Human Lispro (HumaLOG) 0-7 UNITS TIDWMEALS 06/16/21 08:00 06/20/21 08:00 7 UNITS Lidocaine HCl (Xylocaine 2% Topical 30gm Tube) 1 daljit PRN TID PRN 06/18/21 16:15 06/20/21 03:42 1 DALJIT Midodrine (Proamatine) 5 mg 1X ONCE 06/18/21 15:30 06/18/21 15:31 DC 06/18/21 17:00 5 MG Non-Formulary Medication (Sucroferric Oxyhydroxide (Velphoro)) 1 tab TID 06/16/21 09:00 06/17/21 11:17 DC Norepinephrine Bitartrate 8 mg/ Dextrose 258 ml @ 25.445 mls/ hr CONT PRN 06/18/21 10:45 06/19/21 13:47 DC 06/18/21 11:05 25.445 MLS/HR Ondansetron HCl (Zofran) 4 mg PRN Q4HRS PRN 06/18/21 13:30 06/20/21 09:08 4 MG Oxycodone HCl (Roxicodone) 10 mg PRN Q4HRS PRN 06/18/21 16:15 06/20/21 08:32 10 MG Pantoprazole Sodium (Protonix) 40 mg DAILYAC 06/16/21 07:30 06/20/21 08:23 40 MG Polyethylene Glycol (miraLAX PACKET) 17 gm DAILY 06/18/21 14:15 06/19/21 09:00 17 GM Quetiapine Fumarate (SEROquel) 25 mg DAILY 06/16/21 09:00 06/20/21 08:22 25 MG Sertraline HCl (Zoloft) 100 mg DAILY 06/16/21 09:00 06/20/21 08:22 100 MG Sodium Chloride 1,000 ml @ 400 mls/hr Q2H30M PRN 06/20/21 08:30 06/20/21 20:29 Vitamin B Complex/ Vitamin C (Yajaira-Allan) 1 tab DAILY 06/16/21 09:00 06/20/21 08:22 1 TAB Lab Laboratory Tests Test 06/19/21 17:05 06/19/21 18:45 06/19/21 23:05 06/20/21 07:45 Glucose (Fingerstick) 90 mg/dL (70-99) 92 mg/dL (70-99) 171 mg/dL (70-99) Hemoglobin 8.6 g/dL (13.0-17.5) Hematocrit 27.0 % (39.0-53.0) Sodium Level 137 mmol/L (136-145) Potassium Level 5.3 mmol/L (3.5-5.1) Chloride Level 99 mmol/L (98-107) Carbon Dioxide Level 26 mmol/L (21-32) Anion Gap 12 (6-14) Blood Urea Nitrogen 35 mg/dL (8-26) Creatinine 7.2 mg/dL (0.7-1.3) Estimated GFR (Cockcroft-Gault) 8.4 Glucose Level 110 mg/dL (70-99) Calcium Level 7.7 mg/dL (8.5-10.1) Phosphorus Level 7.4 mg/dL (2.6-4.7) Test 06/20/21 07:48 06/20/21 09:39 Glucose (Fingerstick) 511 mg/dL (70-99) 90 mg/dL (70-99) Results All relevant outside records, renal labs, imaging studies, telemetry/EKG's were reviewed. Justicifation of Admission Dx: Justifications for Admission: Justification of Admission Dx: N/A CHANI DANIELLE MD Jun 20, 2021 10:58
--- NOTE | 2021-06-20 13:21 | PDOC ---
Date of Service: DATE: 06/20/21 TIME: 13:15 Objective: Objective: D/w Dr. Burkett this morning - ferrtin elevated, wondering about hemochromatosis. Vital Signs: Vital Signs Date Time Temp Pulse Resp B/P (MAP) Pulse Ox O2 Delivery O2 Flow Rate FiO2 06/20/21 08:00 Room Air 2.0 06/20/21 07:00 96.4 60 20 76/56 (63) 88 96.4 Labs: Laboratory Tests Test 06/19/21 17:05 06/19/21 18:45 06/19/21 23:05 06/20/21 07:45 Glucose (Fingerstick) 90 mg/dL 92 mg/dL 171 mg/dL Hemoglobin 8.6 g/dL Hematocrit 27.0 % Sodium Level 137 mmol/L Potassium Level 5.3 mmol/L Chloride Level 99 mmol/L Carbon Dioxide Level 26 mmol/L Anion Gap 12 Blood Urea Nitrogen 35 mg/dL Creatinine 7.2 mg/dL Estimated GFR (Cockcroft-Gault) 8.4 Glucose Level 110 mg/dL Calcium Level 7.7 mg/dL Phosphorus Level 7.4 mg/dL Test 06/20/21 07:48 06/20/21 09:39 Glucose (Fingerstick) 511 mg/dL 90 mg/dL PE: GEN: visual exam done, remains in COVID isolation - dialyzing LUNGS: has nasal cannula HEART: RR per chart ABD: large/stable in appearance NEURO/PSYCH: resting A/P: Chronic anemia - improved w/ transfusion, h/o stercoral rectal ulcer - no obvious GI bleeding Ascites - small on US, does have h/o past paracentesis COVID, hypotension, CHF, ESRD, non-compliance H/o CAD, CVA, ?DVT - on ASA for now -- Continue same per GI (PPI, constipation treatment though refusing Miralax). Paracentesis PRN. Plans for echocardiogram. Justicifation of Admission Dx: Justifications for Admission: Justification of Admission Dx: N/A NATASHA MANZO Jun 20, 2021 13:21
--- NOTE | 2021-06-20 14:07 | NUR ---
SS following up with discharge planning. SS reviewed pt chart and discussed with pt RN. Pt is currently requiring oxygen at two liters nasal canula. COVID19 positive. PT/OT ordered. Hemodialysis. Dr. Burkett requesting referrals for snf unit be sent to facilities with in house dialysis. Dr. Burkett requesting referrals to [facility] in [place], ; fax [phone], [facility], ; fax [phone], and [facility], ; fax [phone]. Currently awaiting PT/OT evaluations at this time. All facilities stating that pt must be 10 days post COVID19 positive test and if accepted would not be able to admit until 06/26/2021. SS will continue to follow for discharge planning.
[2021-06-20 14:24] VITALS: BP 116/72
[2021-06-20 19:30] VITALS: BP 79/55
[2021-06-20] MEDS: INSULIN GLARGINE SYRINGE. SQ SCH (21:00)
[2021-06-20] MEDS: GABAPENTIN 300 MG CAPSULE. PO SCH (21:24)
[2021-06-20] MEDS: EPOETIN ALFA-EPBX for ESRD 20,000 UNIT/ML VIAL. SQ SCH (21:27)
[2021-06-20 23:21] VITALS: BP 75/36
--- NOTE | 2021-06-20 23:44 | NUR ---
pt bp continued low, 79/55, p-76, 75/36, p-78, pt asymptomatic, dr Burkett notified, no new orders at this time, will cont to monitor pt status and safety. pmrn
[2021-06-21 02:44] VITALS: BP 93/65
[2021-06-21] MEDS: oxyCODONE IR 5 MG TABLET PO PRN (02:50)
--- NOTE | 2021-06-21 02:50 | NUR ---
pt given oxycodone 5mg ir for pain instead of full dose d/t pt bp being low. will cont to monitor pt status and safety. pmrn
[2021-06-21 05:21] LABS: HEMATOCRIT 26.2 % (39.0-53.0); HEMOGLOBIN 8.5 g/dL (13.0-17.5)
[2021-06-21] MEDS: PANTOPRAZOLE 40 MG TABLET.DR. PO SCH (06:07)
[2021-06-21] MEDS: MIDODRINE 5 MG TABLET PO SCH ×3 (06:07→17:35)
[2021-06-21 07:00] VITALS: BP 147/78
[2021-06-21] MEDS: QUEtiapine 25 MG TABLET. PO SCH (08:37)
[2021-06-21] MEDS: ASPIRIN ENTERIC COATED 81 MG TABLET.DR. PO SCH (08:37)
[2021-06-21] MEDS: SERTRALINE 50 MG TABLET. PO SCH (08:37)
[2021-06-21] MEDS: DOCUSATE SODIUM 100 MG CAPSULE. PO SCH ×2 (08:37→20:56)
[2021-06-21] MEDS: FOLIC/VIT B COMP W-C (RENAL) TABLET. PO SCH (08:37)
[2021-06-21] MEDS: CALCIUM ACETATE 667 MG CAPSULE PO SCH ×3 (08:37→17:35)
[2021-06-21] MEDS: POLYETHYLENE GLYCOL 3350 17 GM PACKET. PO SCH (08:39)
[2021-06-21] MEDS: INSULIN LISPRO 300 UNITS/3 ML VIAL. SQ SCH ×3 (08:39→17:00)
[2021-06-21 11:00] VITALS: BP 103/52
[2021-06-21 14:34] VITALS: BP 104/55
--- NOTE | 2021-06-21 14:40 | PDOC ---
CARDIOLOGY PROGRESS NOTE SUBJECTIVE: No acute events overnight. No concerns from nursing staff The patient denies any chest pain or dyspnea. He appears somnolent and very sleepy this morning. OBJECTIVE: Vital Signs/I&O: Vital Signs Date Time Temp Pulse Resp B/P (MAP) Pulse Ox O2 Delivery O2 Flow Rate FiO2 06/21/21 11:00 100.1 78 18 103/52 (69) 98 Room Air 100.1 06/21/21 08:00 2.0 I & O 06/20/21 06/20/21 06/21/21 15:00 23:00 07:00 Intake Total 600 ml Balance 600 ml Objective: HEENT: Neck Supple W Full Motion Chest: Symmetric LUNGS: Other (diminished) Heart: RRR (intermittent V pacing) Abdomen: Soft N/T Extremities: Other (anasarca) Neurology: Nonfocal neurologic exam CURRENT MEDICATIONS: Aspirin and midodrine DIAGNOSTIC TESTING: No new diagnostic testing Previous echocardiogram with normal LV systolic function Labs: Laboratory Tests 06/21/21 04:00 Laboratory Tests Test 06/20/21 16:20 06/20/21 20:50 06/21/21 04:00 06/21/21 08:37 Glucose (Fingerstick) 97 mg/dL (70-99) 92 mg/dL (70-99) 219 mg/dL (70-99) H Hemoglobin 8.5 g/dL (13.0-17.5) L Hematocrit 26.2 % (39.0-53.0) L Test 06/21/21 11:32 Glucose (Fingerstick) 119 mg/dL (70-99) H ASSESSMENT: 1. Severe anemia with possible GI bleed: no obvious bleed getting transfusion cu rrently 2. NSTEMI: possibly demand mediated with multiple culprits CP free 3. Shock: multifactorial. BP stable and marginal 4. ESRD with severe hyperkalemia: due to missed HD 5. DM2: per PCP 6. CAD: [facility] records reviewed and noted last [facility] 01/2021 at [facility] but no intervention at that time and has had stent to RCA before. No evidence of recent stent placement 7. Hx of DVT: on home eliquis 8. Anasarca with increasing transamintis/coagulopathy: GI following 9. Protein malnutrition 10. Covid-19: denies vaccination 12. Hx of CVA: MRI in 2016 Scattered tiny foci of restricted diffusion in different vascular territories suggesting embolic acute infarcts. 13. HLP: on statin 14. Acute on chronic diastolic CHF: appears compensated 15: PPM in situ: leadless with intermittent V pacing PLAN: 1. Continue asa, midodrine 2. Supportive care. No further CV testing needed at this time. 3. Consider overnight pox study to r/o MIKHAIL. Thanks. Justicifation of Admission Dx: Justifications for Admission: Justification of Admission Dx: N/A SHIELA FLORES MD Jun 21, 2021 14:40
[2021-06-21 19:00] VITALS: BP_SYST 108; BP_SYST 91; BP_DIAS 21; BP_DIAS 62
--- NOTE | 2021-06-21 20:39 | PN ---
DATE: 06/21/2021 SUBJECTIVE: The patient is resting, slightly propped up in bed, in no apparent respiratory distress, continued to complain of pain in his legs and the tip of his penis, but offered no other complaint. The nursing staff did not voice any concerns, had generally an uneventful night. PHYSICAL EXAMINATION: GENERAL: When I examined him, he looked pale, not jaundiced, cyanosed, no lymphadenopathy, no thyromegaly, no jugular venous distention. No lower limb edema. VITAL SIGNS: His heart rate was 73, blood pressure is 147/78, temperature was 99.6, respiratory rate was 18 and oxygen saturation was 94% on room air. HEAD, EYES, EARS, NOSE, AND THROAT: Normocephalic, atraumatic. NECK: Supple. HEART: Showed normal first and second heart sounds, no gallop or murmur. CHEST: Clear to auscultation. No crepitation or rhonchi. ABDOMEN: Distended, soft, nontender. NEUROLOGIC: He is awake, alert, responding appropriately. Cranial nerves intact. He moves upper extremities without difficulty. EXTREMITIES: He has left below-knee amputation. His intake, output are incompletely recorded. LABORATORY DATA: This morning showed hemoglobin 8.5, hematocrit 26.2. His chemistry is variable, he is hemodialysis dependent and his blood sugar is well within acceptable range. ASSESSMENT: 1. Life-threatening hyperkalemia, resolved. 2. End-stage renal disease, on hemodialysis, Wednesday, Wednesday, Wednesday. 3. Severe anemia for which he received at least 3 units packed RBCs. As of this morning, his hemoglobin was 8.5, hematocrit 27. 4. Other medical problems include: A. Hypotension for which he is now on midodrine 10 mg 3 times a day. I have discontinued his Coreg and hydralazine. B. Severe peripheral vascular disease, status post left below-knee amputation. C. 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 5. He has impaired liver enzymes, ascites that require multiple paracentesis. His serum ferritin was extremely high; however, the cafe team member thinks that it is just an acute phase reactant. PLAN: To continue obviously with hemodialysis. Continue with wound care. Continue with pain management. I have spoken with the marriage and family social worker as he probably needs to be admitted to a prison facility with in-house dialysis unit. AMM/BOB/KERRI DR: Nelson TID: [id number]
[2021-06-21] MEDS: GABAPENTIN 300 MG CAPSULE. PO SCH (20:56)
[2021-06-21] MEDS: INSULIN GLARGINE SYRINGE. SQ SCH (21:00)
[2021-06-21 23:00] VITALS: BP 109/57
[2021-06-22] VITALS (7 sets, daily range): BP systolic 97–134; BP diastolic 40–73
[2021-06-22] MEDS: INSULIN LISPRO 300 UNITS/3 ML VIAL. SQ SCH ×3 (08:00→17:42)
--- NOTE | 2021-06-22 10:07 | PN ---
DATE: 06/22/2021 SUBJECTIVE: The patient is resting, slightly propped up in bed, extremely diaphoretic, lethargic, but arousable. His blood sugar was checked earlier this morning and was 129 and again we checked it again just now when I saw him, it was 109. The patient himself denied any complaint. PHYSICAL EXAMINATION: GENERAL: When I examined him, he was pale, but no jaundice, cyanosis, no lymphadenopathy, no thyromegaly, no jugular venous distention. No lower limb edema. VITAL SIGNS: His heart rate was 81, blood pressure was 113/40, temperature was 100.7, respiratory rate 22, and oxygen saturation was 92% on 2 liters of oxygen. HEAD, EYES, EARS, NOSE, AND THROAT: Normocephalic, atraumatic. NECK: Supple. HEART: Showed normal first and second heart sounds. No gallop, rub or murmur. CHEST: Clear to auscultation, no crepitation or rhonchi. ABDOMEN: Distended, soft, nontender. NEUROLOGIC: He was very lethargic, but arousable. All cranial nerves intact. He moves upper extremities without difficulty. He has left below-knee amputation. He is mostly bedbound. LABORATORY DATA: His intake and output are incompletely recorded. His H and H this morning was 8.5 and 26.8. ASSESSMENT: 1. Life-threatening hyperkalemia, resolved. 2. End-stage renal disease, on hemodialysis Wednesday, Wednesday, Wednesday. 3. Severe anemia for which he received at least 3 units of packed RBCs as of this morning, his hemoglobin was 8.5, hematocrit 26. A. Hypotension for which he is now on midodrine 10 mg 3 times a day. I have discontinued his Coreg and hydralazine. B. Severe peripheral vascular disease, status post left below-knee amputation. C. 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 4. He has impaired liver enzymes, ascites and required multiple paracenteses. His serum ferritin was extremely high; however, the water sander think this is just an acute phase reactant does not signify any underlying hemochromatosis. 5. Altered mental status with profuse diaphoresis. Blood sugars checked just now with [employer] was with a glucometer was only 109 mg/dL. PLAN: My plan is to order a new set of labs as well as blood cultures and a chest x-ray and decide on further management accordingly. CANDY/JOLENE DR: Nelson TID: [id number]
[2021-06-22 10:12] LABS: BASO # 0.1 x10^3/uL (0.0-0.2); BASO % 1 % (0-3); EOS # 0.4 x10^3/uL (0.0-0.7); EOS % 3 % (0-3); HEMATOCRIT 26.9 % (39.0-53.0); HEMOGLOBIN 8.6 g/dL (13.0-17.5); LYMPH # 0.7 x10^3/uL (1.0-4.8); LYMPH % 6 % (24-48); MEAN CORPUSCULAR HEMOGLOBIN 29 pg (25-35); MEAN CORPUSCULAR HGB CONC 32 g/dL (31-37); MEAN CORPUSCULAR VOLUME 91 fL (79-100); MONO # 1.2 x10^3/uL (0.0-1.1); MONO % 10 % (0-9); NEUT # 9.7 x10^3/uL (1.8-7.7); NEUT % 80 % (31-73); PLATELET COUNT 308 x10^3/uL (140-400); RED BLOOD COUNT 2.96 x10^6/uL (4.30-5.70); RED CELL DISTRIBUTION WIDTH 16.4 % (11.5-14.5); WHITE BLOOD COUNT 12.1 x10^3/uL (4.0-11.0)
[2021-06-22 10:16] LABS: CALCIUM 7.6 mg/dL (8.5-10.1); CREATININE 7.1 mg/dL (0.7-1.3); GFR 8.6; POTASSIUM 5.3 mmol/L (3.5-5.1)
[2021-06-22 10:22] LABS: ALBUMIN 1.8 g/dL (3.4-5.0); ALBUMIN/GLOBULIN RATIO 0.5 (1.0-1.7); TOTAL BILIRUBIN 0.3 mg/dL (0.2-1.0); TOTAL PROTEIN 5.1 g/dL (6.4-8.2)
--- NOTE | 2021-06-22 11:16 | RAD ---
XR CHEST 1V History: Fever, diaphoresis and SOB. Comparison: 05/15/2021 Technique: Portable AP radiograph of the chest. Findings: The lungs are mildly hypoinflated. Prominent perihilar vascular and interstitial markings. No pleural effusion or pneumothorax. The cardiac silhouette is enlarged. Osseous structures and soft tissues ar e unremarkable. Impression: 1. Cardiomegaly with prominent perihilar vascular and interstitial markings likely represent edema. Superimposed infection cannot be excluded. Electronically signed by: Abdi Sky MD (06/22/2021 11:13 AM) [facility]
[2021-06-22] MEDS: CALCIUM ACETATE 667 MG CAPSULE PO SCH ×3 (12:00→17:42)
[2021-06-22] MEDS: POLYETHYLENE GLYCOL 3350 17 GM PACKET. PO SCH (12:22)
[2021-06-22] MEDS: FOLIC/VIT B COMP W-C (RENAL) TABLET. PO SCH (12:22)
[2021-06-22] MEDS: ASPIRIN ENTERIC COATED 81 MG TABLET.DR. PO SCH (12:22)
[2021-06-22] MEDS: DOCUSATE SODIUM 100 MG CAPSULE. PO SCH ×2 (12:22→21:16)
[2021-06-22] MEDS: QUEtiapine 25 MG TABLET. PO SCH (12:22)
[2021-06-22] MEDS: PANTOPRAZOLE 40 MG TABLET.DR. PO SCH (12:22)
[2021-06-22] MEDS: MIDODRINE 5 MG TABLET PO SCH ×3 (12:24→17:43)
[2021-06-22] MEDS: SERTRALINE 50 MG TABLET. PO SCH (12:25)
[2021-06-22] MEDS: PIPERACILLIN/TAZOBACTAM 2.25 GM in IV NORMAL SALINE 50ML 50 ML IV SCH ×2 (12:29→21:48)
[2021-06-22] MEDS ORDERED: VANCOMYCIN 2 GM in IV NORMAL SALINE 500ML BAG 500 ML IV ONE (13:00)
[2021-06-22] MEDS: VANCOMYCIN PER PHARMACY MC PRN (14:16)
--- NOTE | 2021-06-22 14:16 | NUR ---
Pharmacy Vancomycin Dosing Note S:Consulted to monitor and dose vancomycin started 06/22/21. O:ADRIANA GARLAND is a 40 year old M with Empiric . Height: 6 feet, 1 inches Weight: 139.0 kg [place] Body Weight: 79.90 Adjusted Body Weight: 103.54 Dosing Weight: Other Antibiotics: ZOSYN LABS: Last BUN: 34 Last Creatinine: 7.1 Creatinine Clearance: HD MWF mL/min Last WBC: 12.1 Last Procalcitonin: Tmax (past 24 hours): 100.7 Microbiology: I/O: -/- Drug Levels: Last level: on at Last dose given 06/22/21 at 1300 Vancomycin Dosing: Loading Dose: 2000 mg x1 Dosing Weight: Target Trough: 10-20 A: Based on: Body weight and renal function P: 1. Give Vancomycin 2gm IV x 1 2. Follow up Random level on 06/24/21 at 0600 3. Pharmacy will continue to monitor, follow and adjust therapy as needed. ELMER HUERTA [facility], 06/22/21 [id number]
--- NOTE | 2021-06-22 15:36 | PDOC ---
CARDIOLOGY PROGRESS NOTE SUBJECTIVE: No acute events overnight OBJECTIVE: Vital Signs/I&O: Vital Signs Date Time Temp Pulse Resp B/P (MAP) Pulse Ox O2 Delivery O2 Flow Rate FiO2 06/22/21 15:00 98.6 70 20 111/50 (70) 93 Nasal Cannula 2.0 98.6 I & O 06/21/21 06/21/21 06/22/21 15:00 23:00 07:00 Output Total 0 ml 0 ml Balance 0 ml 0 ml Objective: Objective: HEENT: Neck Supple W Full Motion Chest: Symmetric LUNGS: Other (diminished) Heart: RRR (intermittent V pacing) Abdomen: Soft N/T Extremities: Other (anasarca) Neurology: Nonfocal neurologic exam Labs reviewed. ASSESSMENT: 1. Severe anemia with possible GI bleed: no obvious bleed getting transfusion currently 2. NSTEMI: possibly demand mediated with multiple culprits CP free 3. Shock: multifactorial. BP stable and marginal 4. ESRD with severe hyperkalemia: due to missed HD 5. DM2: per PCP 6. CAD: [facility] records reviewed and noted last [facility] 01/2021 at [facility] but no intervention at that time and has had stent to RCA before. No evidence of recent stent placement 7. Hx of DVT: on home eliquis 8. Anasarca with increasing transamintis/coagulopathy: GI following 9. Protein malnutrition 10. Covid-19: denies vaccination 12. Hx of CVA: MRI in 2016 Scattered tiny foci of restricted diffusion in different vascular territories suggesting embolic acute infarcts. 13. HLP: on statin 14. Acute on chronic diastolic CHF: appears compensated 15: PPM in situ: leadless with intermittent V pacing PLAN: 1. Continue asa, midodrine 2. Supportive care. No further CV testing needed at this time. 3. Consider overnight pox study to r/o MIKHAIL. Thanks. CURRENT MEDICATIONS: ASA Midodrine DIAGNOSTIC TESTING: Labs: Laboratory Tests 06/22/21 06:40 Laboratory Tests Test 06/21/21 17:29 06/21/21 20:27 06/22/21 06:40 06/22/21 07:34 Glucose (Fingerstick) 151 mg/dL (70-99) H 161 mg/dL (70-99) H 126 mg/dL (70-99) H White Blood Count 12.1 x10^3/uL (4.0-11.0) H Red Blood Count 2.96 x10^6/uL (4.30-5.70) L Hemoglobin 8.6 g/dL (13.0-17.5) L Hematocrit 26.9 % (39.0-53.0) L Mean Corpuscular Volume 91 fL (79-100) Mean Corpuscular Hemoglobin 29 pg (25-35) Mean Corpuscular Hemoglobin Concent 32 g/dL (31-37) Red Cell Distribution Width 16.4 % (11.5-14.5) H Platelet Count 308 x10^3/uL (140-400) Neutrophils (%) (Auto) 80 % (31-73) H Lymphocytes (%) (Auto) 6 % (24-48) L Monocytes (%) (Auto) 10 % (0-9) H Eosinophils (%) (Auto) 3 % (0-3) Basophils (%) (Auto) 1 % (0-3) Neutrophils # (Auto) 9.7 x10^3/uL (1.8-7.7) H Lymphocytes # (Auto) 0.7 x10^3/uL (1.0-4.8) L Monocytes # (Auto) 1.2 x10^3/uL (0.0-1.1) H Eosinophils # (Auto) 0.4 x10^3/uL (0.0-0.7) Basophils # (Auto) 0.1 x10^3/uL (0.0-0.2) Sodium Level 134 mmol/L (136-145) L Potassium Level 5.3 mmol/L (3.5-5.1) H Chloride Level 99 mmol/L (98-107) Carbon Dioxide Level 27 mmol/L (21-32) Anion Gap 8 (6-14) Blood Urea Nitrogen 34 mg/dL (8-26) H Creatinine 7.1 mg/dL (0.7-1.3) H Estimated GFR (Cockcroft-Gault) 8.6 BUN/Creatinine Ratio 5 (6-20) L Glucose Level 128 mg/dL (70-99) H Calcium Level 7.6 mg/dL (8.5-10.1) L Total Bilirubin 0.3 mg/dL (0.2-1.0) Aspartate Amino Transf (AST/SGOT) 44 U/L (15-37) H Alkaline Phosphatase 230 U/L (46-116) H Total Protein 5.1 g/dL (6.4-8.2) L Albumin 1.8 g/dL (3.4-5.0) L Albumin/Globulin Ratio 0.5 (1.0-1.7) L Procalcitonin 2.16 ng/mL (0.00-0.10) H Test 06/22/21 09:38 06/22/21 11:54 06/22/21 13:00 Glucose (Fingerstick) 109 mg/dL (70-99) H 115 mg/dL (70-99) H Lactic Acid Level 1.0 mmol/L (0.4-2.0) Justicifation of Admission Dx: Justifications for Admission: Justification of Admission Dx: N/A SHIELA FLORES MD Jun 22, 2021 15:36
[2021-06-22] MEDS: oxyCODONE IR 5 MG TABLET PO PRN (17:47)
[2021-06-22] MEDS: GABAPENTIN 300 MG CAPSULE. PO SCH (21:16)
[2021-06-22] MEDS: INSULIN GLARGINE SYRINGE. SQ SCH (21:16)
[2021-06-23 03:19] VITALS: BP 109/62
[2021-06-23] MEDS: PIPERACILLIN/TAZOBACTAM 2.25 GM in IV NORMAL SALINE 50ML 50 ML IV SCH ×3 (05:13→21:31)
[2021-06-23 07:00] VITALS: BP 113/65
[2021-06-23] MEDS: MIDODRINE 5 MG TABLET PO SCH ×3 (07:00→18:00)
[2021-06-23 07:02] LABS: CALCIUM 7.7 mg/dL (8.5-10.1); CREATININE 8.2 mg/dL (0.7-1.3); GFR 7.3; POTASSIUM 5.9 mmol/L (3.5-5.1)
[2021-06-23] MEDS: DOCUSATE SODIUM 100 MG CAPSULE. PO SCH ×2 (07:14→21:31)
[2021-06-23] MEDS: POLYETHYLENE GLYCOL 3350 17 GM PACKET. PO SCH (07:14)
--- NOTE | 2021-06-23 07:15 | NUR ---
Holding miralax and Colace this am. Pt had BM last night. According to night nurse patient smeared it all over the bed and hands for attention.
[2021-06-23] MEDS: INSULIN LISPRO 300 UNITS/3 ML VIAL. SQ SCH ×3 (07:47→17:00)
[2021-06-23] MEDS: QUEtiapine 25 MG TABLET. PO SCH (08:23)
[2021-06-23] MEDS: CALCIUM ACETATE 667 MG CAPSULE PO SCH ×3 (08:23→18:00)
[2021-06-23] MEDS: PANTOPRAZOLE 40 MG TABLET.DR. PO SCH (08:23)
[2021-06-23] MEDS: ASPIRIN ENTERIC COATED 81 MG TABLET.DR. PO SCH (08:24)
[2021-06-23] MEDS: SERTRALINE 50 MG TABLET. PO SCH (08:24)
[2021-06-23] MEDS: FOLIC/VIT B COMP W-C (RENAL) TABLET. PO SCH (08:27)
[2021-06-23] MEDS: oxyCODONE IR 5 MG TABLET PO PRN (08:45)
--- NOTE | 2021-06-23 09:30 | PN ---
DATE: 06/23/2021 SUBJECTIVE: The patient is resting, slightly propped up in bed, in no apparent respiratory distress. He is awake, alert. On questioning him, he denied any complaints and wondering about COVID-19 vaccination. I explained to him that he has to go to the near pharmacy or [facility] for that. He did spike his temperature yesterday. We did panculture him. I started him empirically on vancomycin and Zosyn. So far, his blood cultures are still pending at the time of this dictation. PHYSICAL EXAMINATION: GENERAL: When I saw him this morning, he looked well and was clearly in no apparent respiratory distress, pale, but not jaundiced, cyanosed. No lymphadenopathy, no thyromegaly, no jugular venous distention. No lower limb edema. VITAL SIGNS: His heart rate was 75, blood pressure was 109/62, temperature was 99, respiratory rate was 20 and oxygen saturation was 94% on 2 liters nasal cannula. HEAD, EYES, EARS, NOSE AND THROAT: Normocephalic, atraumatic. NECK: Supple. HEART: Normal first and second heart sounds. No gallop or murmur. CHEST: Clear to auscultation. No crepitation or rhonchi. ABDOMEN: Distended, soft, nontender. NEUROLOGIC: He is awake, alert, responding appropriately. All cranial nerves intact. He moves upper extremities without difficulty. He has left below-knee amputation. He has calciphylaxis wounds on the tip of his fingers and his lower extremities. His intake and output over the last 24 hours was completely recorded. LABORATORY DATA: As of yesterday, his white cell count was 12,000; hemoglobin 8.6; hematocrit 26.9; MCV 91 and platelet count 308,000. His chemistry is variable. His serum sodium was 136, potassium 5.9, chloride 100, bicarbonate 22, anion gap of 14, BUN 42, creatinine 8.2. Estimated GFR was 7.3. Glucose 79 and calcium was 7.7. ASSESSMENT: 1. Life-threatening hyperkalemia, resolved. 2. End-stage renal disease, on hemodialysis Wednesday, Wednesday, Wednesday. 3. Severe anemia, for which he has received at least 3 units of packed red blood cells. As of yesterday, his hemoglobin was 8.5, hematocrit was 26. A. Hypotension, which he is now on midodrine 10 mg 3 times a day. I have discontinued his Coreg and hydralazine. B. Severe peripheral vascular disease, status post left below-knee amputation. C. Calciphylaxis have been from the wounds on the tip of his penis and his lower extremity. 4. He has impaired liver enzyme ascites and required multiple paracenteses. His serum ferritin was extremely high. However, his agronomy internship thinks that this is just an acute phase reaction and did not signify any underlying hemochromatosis. 5. Altered mental status, confusion, diaphoresis together with fever, for which we did panculture him and started him empirically on Zosyn and vancomycin. PLAN: To continue obviously with IV antibiotic. Continue with hemodialysis Wednesday, Wednesday, Wednesday. Continue to monitor his blood sugar and adjust insulin as needed. Continue to monitor his H and H and transfuse him as needed. BRENDA DR: Nelson TID: [id number]
[2021-06-23] MEDS: VANCOMYCIN PER PHARMACY MC PRN (09:46)
--- NOTE | 2021-06-23 10:20 | PDOC ---
Date of Service: DATE: 06/23/21 TIME: 10:13 Subjective: Subjective: Says he hasn't stooled and is having to push and wasn't given Miralax today. Objective: Objective: Nursing note from this morning: Holding miralax and Colace this am. Pt had BM last night. According to night nurse patient smeared it all over the bed and hands for attention. Vital Signs: Vital Signs Date Time Temp Pulse Resp B/P (MAP) Pulse Ox O2 Delivery O2 Flow Rate FiO2 06/23/21 08:45 Room Air 06/23/21 07:00 98.2 75 16 113/65 (81) 98 98.2 06/22/21 20:00 2.0 Labs: Laboratory Tests Test 06/22/21 11:54 06/22/21 13:00 06/22/21 16:58 06/22/21 20:23 Glucose (Fingerstick) 115 mg/dL 164 mg/dL 141 mg/dL Lactic Acid Level 1.0 mmol/L Test 06/23/21 04:55 06/23/21 07:34 Sodium Level 136 mmol/L Potassium Level 5.9 mmol/L Chloride Level 100 mmol/L Carbon Dioxide Level 22 mmol/L Anion Gap 14 Blood Urea Nitrogen 42 mg/dL Creatinine 8.2 mg/dL Estimated GFR (Cockcroft-Gault) 7.3 Glucose Level 79 mg/dL Calcium Level 7.7 mg/dL Glucose (Fingerstick) 63 mg/dL Imaging: CXR 06/22 Impression: 1. Cardiomegaly with prominent perihilar vascular and interstitial markings likely represent edema. Superimposed infection cannot be excluded. Echo 06/20 <Conclusion> Limited echocardiogram for LV function. The left ventricle is normal size. The left ventricular systolic function is normal and the ejection fraction is within normal range. LV ejection fraction of 55 to 60%. There is normal LV segmental wall motion. There is mild to moderate concentric left ventricular hypertrophy. The aortic valve is normal in structure and function. There is no significant aortic valvular stenosis. The mitral valve is has areas of calcification on the valve and possibly in the left atrium. There is no mitral valve stenosis. Doppler and Color Flow revealed mild tricuspid regurgitation. Estimated PAP 35 mmHg. PE: GEN: COVID isolation - visual exam done LUNGS: room air HEART: RR per chart ABD: large/stable in appearance NEURO/PSYCH: odd affect A/P: ACD - stable after transfusions H/o stercoral rectal ulcer - no obvious GI bleeding Ascites - small on US done earlier this admission, h/o past paracentesis COVID, hypotension (better) H/o CAD, CHF, ESRD, calciphylaxis, PVD, CVA - on ASA for now Non-compliance -- Supportive care GI-gonzalez. Justicifation of Admission Dx: Justifications for Admission: Justification of Admission Dx: N/A NATASHA MANZO Jun 23, 2021 10:20
[2021-06-23 11:00] VITALS: BP 93/51
--- NOTE | 2021-06-23 11:42 | PDOC ---
DATE OF SERVICE DATE: 06/23/21 TIME: 11:39 SUBJECTIVE ROS Stable OBJECTIVE Vital Signs Vital Signs Date Time Temp Pulse Resp B/P (MAP) Pulse Ox O2 Delivery O2 Flow Rate FiO2 06/23/21 08:45 Room Air 06/23/21 08:15 2.0 06/23/21 07:00 98.2 75 16 113/65 (81) 98 98.2 I & 0 Intake and Output 06/23/21 07:00 Intake Total 220 ml Output Total 0 ml Balance 220 ml Intake Oral 220 ml Output Urine Total 0 ml # Bowel Movements 1 PHYSICAL EXAM Physical Exam GENERAL: NAD, HEEN OM moist NECK: Supple. HEART: S1S2, SR with LBBB LUNGS: Clear to auscultation,decreased at bases Non labored ABDOMEN: soft, nontender.Obese NEUROLOGIC: awake, alert,Grossly normal No Rodriguez DERM No Rash DIAGNOSIS/ASSESSMENT Assessment & Plan ESRD- On HD MWF. He has been on Dialysis since 2017. Increased dose of Midodrine on 06/18 . Dialyssi today, discussed treatment plan with RACHAEL Chavis- Under Dr Godoy's care( [facility] group) , per Nursing staff- chronic non compliance with treatments, Dietary restrictions- drinks 2 lts Mountain dew/day etc HyperKalemia life threatening POA - Dialyzed emergently . K elevated today- dialysis , Anemia- s/p PRBC . Ferritin elevated . Hgb stable . Continue MINDY NSTEMI: Per cardiology CAD: reported 2 stents placed about a month ago at [facility] Hx of DVT: on home eliquis Covid-19: Not Vaccinated Hx of CVA: MRI in 2016 Scattered tiny foci of restricted diffusion in different vascular territories suggesting embolic acute infarcts. Hx of Hypertension- low BP's since 06/17 Cardiology Consulted . Poorly controlled type 2 diabetes mellitus, diabetic retinopathy. Ascites and nonalcoholic steatohepatitis - Per [facility] staff he is supposed to be on scheduled paracentesis , non compliant Peritoneal nodularities and greater omental fat induration --can be seen in peritoneal carcinomatosis. Recommend diagnostic paracentesis cytology. Similar multiple prominent to mildly enlarged upper abdominal, retroperitoneal and bilateral pelvic lymph node indeterminate. Defer to Primary COMMENT/RELEVANT DATA Meds Current Medications Medications (Trade) Dose Ordered Sig/Damien Start Time Stop Time Status Last Admin Dose Admin Albumin Human 200 ml @ 200 mls/hr 1X PRN PRN 06/20/21 08:30 06/20/21 14:29 DC 06/20/21 10:30 200 MLS/HR Aspirin (Ecotrin) 81 mg [id number] 06/19/21 08:00 06/23/21 08:24 81 MG Atorvastatin Calcium (Lipitor) 40 mg QHS 06/15/21 23:00 06/19/21 14:04 DC 06/18/21 21:00 40 MG Bisacodyl (Dulcolax Supp) 10 mg PRN DAILY PRN 06/18/21 14:15 Calcium Acetate (Phoslo) 667 mg TIDWMEALS 06/16/21 08:00 06/23/21 08:23 667 MG Carvedilol (Coreg) 50 mg BIDWMEALS 06/16/21 08:00 06/18/21 10:28 DC 06/16/21 18:18 50 MG Clonidine HCl (Catapres) 0.1 mg PRN Q8HRS PRN 06/15/21 22:30 Clopidogrel Bisulfate (Plavix) 75 mg DAILY 06/16/21 09:00 06/17/21 11:35 DC 06/17/21 10:56 75 MG Dextrose (Dextrose 50%-Water Syringe) 12.5 gm PRN Q15MIN PRN 06/15/21 20:45 Diphenhydramine HCl (Benadryl) 25 mg PRN 1X PRN 06/17/21 14:30 06/18/21 14:29 DC 06/18/21 12:43 25 MG Docusate Sodium (Colace) 100 mg BID 06/18/21 14:15 06/22/21 21:16 100 MG Epoetin Kory-epbx (RETACRIT for ESRD PTS) 10,000 unit MoWeFr@2100 06/20/21 21:00 06/20/21 21:27 10,000 UNIT Furosemide (Lasix) 80 mg DAILY 06/16/21 09:00 06/18/21 10:28 DC 06/16/21 09:00 80 MG Gabapentin (Neurontin) 300 mg QHS 06/15/21 23:00 06/22/21 21:16 300 MG Hydralazine HCl (Apresoline) 100 mg BID 06/15/21 23:00 06/18/21 10:28 DC Hydroxyzine HCl (Atarax) 25 mg PRN Q6HRS PRN 06/15/21 22:30 Info (PHARMACY MONITORING -- do not chart) 1 each PRN DAILY PRN 06/20/21 08:30 Insulin Glargine (Lantus Syringe) 32 unit QHS 06/15/21 23:00 06/22/21 21:16 32 UNIT Insulin Human Lispro (HumaLOG) 0-7 UNITS TIDWMEALS 06/16/21 08:00 06/22/21 17:42 3 UNITS Lactobacillus Rhamnosus (Culturelle) 1 cap BID 06/23/21 21:00 Lidocaine HCl (Xylocaine 2% Topical 30gm Tube) 1 daljit PRN TID PRN 06/18/21 16:15 06/20/21 03:42 1 DALJIT Midodrine (Proamatine) 5 mg 1X ONCE 06/18/21 15:30 06/18/21 15:31 DC 06/18/21 17:00 5 MG Non-Formulary Medication (Sucroferric Oxyhydroxide (Velphoro)) 1 tab TID 06/16/21 09:00 06/17/21 11:17 DC Norepinephrine Bitartrate 8 mg/ Dextrose 258 ml @ 25.445 mls/ hr CONT PRN 06/18/21 10:45 06/19/21 13:47 DC 06/18/21 11:05 25.445 MLS/HR Ondansetron HCl (Zofran) 4 mg PRN Q4HRS PRN 06/18/21 13:30 06/20/21 09:08 4 MG Oxycodone HCl (Roxicodone) 10 mg PRN Q4HRS PRN 06/18/21 16:15 06/23/21 08:45 10 MG Pantoprazole Sodium (Protonix) 40 mg DAILYAC 06/16/21 07:30 06/23/21 08:23 40 MG Piperacillin Sod/ Tazobactam Sod 2.25 gm/Sodium Chloride 50 ml @ 100 mls/hr Q8HRS 06/22/21 13:00 06/23/21 05:13 100 MLS/HR Polyethylene Glycol (miraLAX PACKET) 17 gm DAILY 06/18/21 14:15 06/22/21 12:22 17 GM Quetiapine Fumarate (SEROquel) 25 mg DAILY 06/16/21 09:00 06/23/21 08:23 25 MG Sertraline HCl (Zoloft) 100 mg DAILY 06/16/21 09:00 06/23/21 08:24 100 MG Sodium Chloride 1,000 ml @ 400 mls/hr Q2H30M PRN 06/20/21 08:30 06/20/21 20:29 DC Vancomycin HCl (Vanco Per Pharmacy) 1 each PRN DAILY PRN 06/22/21 11:30 06/23/21 09:46 1 EACH Vancomycin HCl (Vancomycin Random Level) 1 each 1X ONCE 06/24/21 06:00 06/24/21 06:01 Vancomycin HCl 2 gm/Sodium Chloride 500 ml @ 250 mls/hr 1X ONCE 06/22/21 13:00 06/22/21 14:59 DC 06/22/21 14:31 250 MLS/HR Vitamin B Complex/ Vitamin C (Yajaira-Allan) 1 tab DAILY 06/16/21 09:00 06/23/21 08:27 1 TAB Lab Laboratory Tests Test 06/22/21 11:54 06/22/21 13:00 06/22/21 16:58 06/22/21 20:23 Glucose (Fingerstick) 115 mg/dL (70-99) 164 mg/dL (70-99) 141 mg/dL (70-99) Lactic Acid Level 1.0 mmol/L (0.4-2.0) Test 06/23/21 04:55 06/23/21 07:34 06/23/21 11:16 Sodium Level 136 mmol/L (136-145) Potassium Level 5.9 mmol/L (3.5-5.1) Chloride Level 100 mmol/L (98-107) Carbon Dioxide Level 22 mmol/L (21-32) Anion Gap 14 (6-14) Blood Urea Nitrogen 42 mg/dL (8-26) Creatinine 8.2 mg/dL (0.7-1.3) Estimated GFR (Cockcroft-Gault) 7.3 Glucose Level 79 mg/dL (70-99) Calcium Level 7.7 mg/dL (8.5-10.1) Glucose (Fingerstick) 63 mg/dL (70-99) 66 mg/dL (70-99) Results All relevant outside records, renal labs, imaging studies, telemetry/EKG's were reviewed. Justicifation of Admission Dx: Justifications for Admission: Justification of Admission Dx: N/A CHANI DANIELLE MD Jun 23, 2021 11:42
--- NOTE | 2021-06-23 12:23 | NUR ---
SW following. Discussed with RN, per Marycarmen () note, referrals needed to [facility], [facility] and [facility]. [facility] is currently on a bed hold due to COVID in the building, [place] have no admissions staff there today and are unsure what their policy is for taking COVID positive pts. [facility]. Will fax to [place] after fax clears. SW will continue to follow.
--- NOTE | 2021-06-23 13:45 | NUR ---
To dialysis by bed.
[2021-06-23] MEDS ORDERED: DIALYSIS PATIENT. MC PRN (14:15)
--- NOTE | 2021-06-23 14:49 | PDOC ---
PROGRESS NOTES Date of Service DATE: 06/23/21 TIME: 14:47 Subjective Subjective Patient seen and evaluated. Objective Objective Vital Signs Date Time Temp Pulse Resp B/P (MAP) Pulse Ox O2 Delivery O2 Flow Rate FiO2 06/23/21 13:00 76 93/51 06/23/21 11:00 98.3 18 96 Room Air 98.3 06/23/21 08:15 2.0 Intake and Output 06/23/21 07:00 Intake Total 220 ml Output Total 0 ml Balance 220 ml Intake Oral 220 ml Output Urine Total 0 ml # Bowel Movements 1 Physical Exam Physical Exam Visual examination as per guidelines. Assessment Assessment 1. Severe anemia with possible GI bleed: Work-up in progress. Morning H&H of 8.6 and 26.9. 2. NSTEMI: possibly demand mediated with multiple culprits CP free 3. Shock: multifactorial. BP stable and marginal 4. ESRD with severe hyperkalemia: HD as per the renal service. 5. DM2: per PCP 6. CAD: [facility] but no intervention at that time but has had stent to RCA 7. Hx of DVT: on home eliquis. On hold 8. Anasarca with increasing transamintis/coagulopathy: GI following 9. Protein malnutrition 10. Covid-19: denies vaccination 12. Hx of CVA: MRI in 2016 Scattered tiny foci of restricted diffusion in different vascular territories suggesting embolic acute infarcts. 13. HLP: on statin 14. 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 Labs Laboratory Tests Test 06/21/21 17:29 06/21/21 20:27 06/22/21 06:40 06/22/21 07:34 Glucose (Fingerstick) 151 mg/dL (70-99) 161 mg/dL (70-99) 126 mg/dL (70-99) White Blood Count 12.1 x10^3/uL (4.0-11.0) Red Blood Count 2.96 x10^6/uL (4.30-5.70) Hemoglobin 8.6 g/dL (13.0-17.5) Hematocrit 26.9 % (39.0-53.0) Mean Corpuscular Volume 91 fL (79-100) Mean Corpuscular Hemoglobin 29 pg (25-35) Mean Corpuscular Hemoglobin Concent 32 g/dL (31-37) Red Cell Distribution Width 16.4 % (11.5-14.5) Platelet Count 308 x10^3/uL (140-400) Neutrophils (%) (Auto) 80 % (31-73) Lymphocytes (%) (Auto) 6 % (24-48) Monocytes (%) (Auto) 10 % (0-9) Eosinophils (%) (Auto) 3 % (0-3) Basophils (%) (Auto) 1 % (0-3) Neutrophils # (Auto) 9.7 x10^3/uL (1.8-7.7) Lymphocytes # (Auto) 0.7 x10^3/uL (1.0-4.8) Monocytes # (Auto) 1.2 x10^3/uL (0.0-1.1) Eosinophils # (Auto) 0.4 x10^3/uL (0.0-0.7) Basophils # (Auto) 0.1 x10^3/uL (0.0-0.2) Sodium Level 134 mmol/L (136-145) Potassium Level 5.3 mmol/L (3.5-5.1) Chloride Level 99 mmol/L (98-107) Carbon Dioxide Level 27 mmol/L (21-32) Anion Gap 8 (6-14) Blood Urea Nitrogen 34 mg/dL (8-26) Creatinine 7.1 mg/dL (0.7-1.3) Estimated GFR (Cockcroft-Gault) 8.6 BUN/Creatinine Ratio 5 (6-20) Glucose Level 128 mg/dL (70-99) Calcium Level 7.6 mg/dL (8.5-10.1) Total Bilirubin 0.3 mg/dL (0.2-1.0) Aspartate Amino Transf (AST/SGOT) 44 U/L (15-37) Alanine Aminotransferase (ALT/SGPT) 131 U/L (16-63) Alkaline Phosphatase 230 U/L (46-116) Total Protein 5.1 g/dL (6.4-8.2) Albumin 1.8 g/dL (3.4-5.0) Albumin/Globulin Ratio 0.5 (1.0-1.7) Procalcitonin 2.16 ng/mL (0.00-0.10) Test 06/22/21 09:38 06/22/21 11:54 06/22/21 13:00 06/22/21 16:58 Glucose (Fingerstick) 109 mg/dL (70-99) 115 mg/dL (70-99) 164 mg/dL (70-99) Lactic Acid Level 1.0 mmol/L (0.4-2.0) Test 06/22/21 20:23 06/23/21 04:55 06/23/21 07:34 06/23/21 11:16 Glucose (Fingerstick) 141 mg/dL (70-99) 63 mg/dL (70-99) 66 mg/dL (70-99) Sodium Level 136 mmol/L (136-145) Potassium Level 5.9 mmol/L (3.5-5.1) Chloride Level 100 mmol/L (98-107) Carbon Dioxide Level 22 mmol/L (21-32) Anion Gap 14 (6-14) Blood Urea Nitrogen 42 mg/dL (8-26) Creatinine 8.2 mg/dL (0.7-1.3) Estimated GFR (Cockcroft-Gault) 7.3 Glucose Level 79 mg/dL (70-99) Calcium Level 7.7 mg/dL (8.5-10.1) Laboratory Tests Test 06/22/21 16:58 06/22/21 20:23 06/23/21 04:55 06/23/21 07:34 Glucose (Fingerstick) 164 mg/dL (70-99) 141 mg/dL (70-99) 63 mg/dL (70-99) Sodium Level 136 mmol/L (136-145) Potassium Level 5.9 mmol/L (3.5-5.1) Chloride Level 100 mmol/L (98-107) Carbon Dioxide Level 22 mmol/L (21-32) Anion Gap 14 (6-14) Blood Urea Nitrogen 42 mg/dL (8-26) Creatinine 8.2 mg/dL (0.7-1.3) Estimated GFR (Cockcroft-Gault) 7.3 Glucose Level 79 mg/dL (70-99) Calcium Level 7.7 mg/dL (8.5-10.1) Test 06/23/21 11:16 Glucose (Fingerstick) 66 mg/dL (70-99) Medications Current Medications Sodium Chloride 1,000 ml @ 1,000 mls/hr Q1H PRN IV hypotension; Start 06/15/21 at 19:15; Stop 06/16/21 at 01:14; Status DC Albumin Human 200 ml @ 200 mls/hr 1X PRN PRN IV Hypotension Last administered on 06/15/21at 19:05; Start 06/15/21 at 19:15; Stop 06/16/21 at 01:14; Status DC Sodium Chloride 1,000 ml @ 400 mls/hr Q2H30M PRN IV PATENCY; Start 06/15/21 at 19:15; Stop 06/16/21 at 07:14; Status DC Info (PHARMACY MONITORING -- do not chart) 1 each PRN DAILY PRN MC SEE COMMENTS; Start 06/15/21 at 19:15; Status Cancel Info (PHARMACY MONITORING -- do not chart) 1 each PRN DAILY PRN MC SEE COMMENTS; Start 06/15/21 at 19:15; Status Cancel Insulin Human Lispro (HumaLOG) 0-7 UNITS TIDWMEALS SQ Last administered on 06/22/21at 17:42; Start 06/16/21 at 08:00 Dextrose (Dextrose 50%-Water Syringe) 12.5 gm PRN Q15MIN PRN IV SEE COMMENTS; Start 06/15/21 at 20:45 Aspirin (Ecotrin) 81 mg DAILY PO Last administered on 06/17/21at 10:58; Start 06/16/21 at 09:00; Stop 06/17/21 at 11:35; Status DC Atorvastatin Calcium (Lipitor) 40 mg QHS PO Last administered on 06/18/21at 21:00; Start 06/15/21 at 23:00; Stop 06/19/21 at 14:04; Status DC Clonidine HCl (Catapres) 0.1 mg PRN Q8HRS PRN PO HTN; Start 06/15/21 at 22:30 Clopidogrel Bisulfate (Plavix) 75 mg DAILY PO Last administered on 06/17/21at 10:56; Start 06/16/21 at 09:00; Stop 06/17/21 at 11:35; Status DC Furosemide (Lasix) 80 mg DAILY PO Last administered on 06/16/21at 09:00; Start 06/16/21 at 09:00; Stop 06/18/21 at 10:28; Status DC Gabapentin (Neurontin) 300 mg QHS PO Last administered on 06/22/21at 21:16; Start 06/15/21 at 23:00 Hydroxyzine HCl (Atarax) 25 mg PRN Q6HRS PRN PO ALLERGIES; Start 06/15/21 at 22:30 Pantoprazole Sodium (Protonix) 40 mg DAILYAC PO Last administered on 06/23/21at 08:23; Start 06/16/21 at 07:30 Quetiapine Fumarate (SEROquel) 25 mg DAILY PO Last administered on 06/23/21at 08:23; Start 06/16/21 at 09:00 Calcium Acetate (Phoslo) 667 mg TIDWMEALS PO Last administered on 06/23/21at 12:19; Start 06/16/21 at 08:00 Carvedilol (Coreg) 50 mg BIDWMEALS PO Last administered on 06/16/21at 18:18; Start 06/16/21 at 08:00; Stop 06/18/21 at 10:28; Status DC Hydralazine HCl (Apresoline) 100 mg BID PO ; Start 06/15/21 at 23:00; Stop 06/18/21 at 10:28; Status DC Insulin Glargine (Lantus Syringe) 32 unit QHS SQ Last administered on 06/22/21at 21:16; Start 06/15/21 at 23:00 Oxycodone HCl (Roxicodone) 5 mg PRN Q4HRS PRN PO SEVERE PAIN 7-10 Last administered on 06/18/21at 14:23; Start 06/15/21 at 22:45; Stop 06/18/21 at 16:20; Status DC Sertraline HCl (Zoloft) 100 mg DAILY PO Last administered on 06/23/21at 08:24; Start 06/16/21 at 09:00 Non-Formulary Medication (Sucroferric Oxyhydroxide (Velphoro)) 1 tab TID PO ; Start 06/16/21 at 09:00; Stop 06/17/21 at 11:17; Status DC Vitamin B Complex/ Vitamin C (Yajaira-Allan) 1 tab DAILY PO Last administered on at 08:27; Start 06/16/21 at 09:00 Sodium Chloride 1,000 ml @ 1,000 mls/hr Q1H PRN IV hypotension; Start 06/16/21 at 07:00; Stop 06/16/21 at 12:59; Status DC Sodium Chloride 1,000 ml @ 400 mls/hr Q2H30M PRN IV PATENCY; Start 06/16/21 at 07:00; Stop 06/16/21 at 18:59; Status DC Info (PHARMACY MONITORING -- do not chart) 1 each PRN DAILY PRN MC SEE COMMENTS; Start 06/16/21 at 07:00; Status Cancel Info (PHARMACY MONITORING -- do not chart) 1 each PRN DAILY PRN MC SEE COMMENTS; Start 06/16/21 at 07:00; Status Cancel Midodrine (Proamatine) 5 mg [id number] PO Last administered on 06/18/21at 12:44; Start 06/17/21 at 13:45; Stop 06/18/21 at 15:13; Status DC Diphenhydramine HCl (Benadryl) 25 mg PRN 1X PRN PO PRE-TRANSFUSION Last administered on 06/18/21at 12:43; Start 06/17/21 at 14:30; Stop 06/18/21 at 14:29; Status DC Norepinephrine Bitartrate 8 mg/ Dextrose 258 ml @ 25.445 mls/ hr CONT PRN IV PER PROTOCOL Last administered on 06/18/21at 11:05; Start 06/18/21 at 10:45; Stop 06/19/21 at 13:47; Status DC Aspirin (Ecotrin) 81 mg [id number] PO Last administered on 06/23/21at 08:24; Start 06/19/21 at 08:00 Ondansetron HCl (Zofran) 4 mg PRN Q4HRS PRN IVP NAUSEA/VOMITING Last administered on 06/20/21at 09:08; Start 06/18/21 at 13:30 Sodium Chloride 1,000 ml @ 1,000 mls/hr Q1H PRN IV hypotension; Start 06/18/21 at 13:45; Stop 06/18/21 at 19:44; Status DC Sodium Chloride 1,000 ml @ 400 mls/hr Q2H30M PRN IV PATENCY; Start 06/18/21 at 13:45; Stop 06/19/21 at 01:44; Status DC Info (PHARMACY MONITORING -- do not chart) 1 each PRN DAILY PRN MC SEE COMMENTS; Start 06/18/21 at 13:45; Status Cancel Albumin Human 200 ml @ 200 mls/hr 1X PRN PRN IV Hypotension Last administered on 06/18/21at 17:29; Start 06/18/21 at 13:45; Stop 06/18/21 at 19:44; Status DC Docusate Sodium (Colace) 100 mg BID PO Last administered on 06/22/21at 21:16; Start 06/18/21 at 14:15 Polyethylene Glycol (miraLAX PACKET) 17 gm DAILY PO Last administered on 06/22/21at 12:22; Start 06/18/21 at 14:15 Bisacodyl (Dulcolax Supp) 10 mg PRN DAILY PRN SD CONSTIPATION; Start 06/18/21 at 14:15 Midodrine (Proamatine) 7.5 mg [id number] PO ; Start 06/19/21 at 07:00; Stop 06/18/21 at 15:21; Status DC Midodrine (Proamatine) 10 mg 1X ONCE PO ; Start 06/18/21 at 15:15; Stop 06/18/21 at 15:21; Status DC Midodrine (Proamatine) 10 mg [id number] PO Last administered on 06/22/21at 12:24; Start 06/19/21 at 07:00 Midodrine (Proamatine) 5 mg 1X ONCE PO Last administered on 06/18/21at 17:00; Start 06/18/21 at 15:30; Stop 06/18/21 at 15:31; Status DC Oxycodone HCl (Roxicodone) 10 mg PRN Q4HRS PRN PO SEVERE PAIN 7-10 Last administered on 06/23/21at 08:45; Start 06/18/21 at 16:15 Lidocaine HCl (Xylocaine 2% Topical 30gm Tube) 1 daljit PRN TID PRN TP PAIN Last administered on 06/20/21at 03:42; Start 06/18/21 at 16:15 Sodium Chloride 1,000 ml @ 1,000 mls/hr Q1H PRN IV hypotension; Start 06/20/21 at 08:30; Stop 06/20/21 at 14:29; Status DC Albumin Human 200 ml @ 200 mls/hr 1X PRN PRN IV Hypotension Last administered on 06/20/21at 10:30; Start 06/20/21 at 08:30; Stop 06/20/21 at 14:29; Status DC Sodium Chloride 1,000 ml @ 400 mls/hr Q2H30M PRN IV PATENCY; Start 06/20/21 at 08:30; Stop 06/20/21 at 20:29; Status DC Info (PHARMACY MONITORING -- do not chart) 1 each PRN DAILY PRN MC SEE COMMENTS; Start 06/20/21 at 08:30; Status UNV Info (PHARMACY MONITORING -- do not chart) 1 each PRN DAILY PRN MC SEE COMMENTS; Start 06/20/21 at 08:30; Status Cancel Epoetin Kory-epbx (RETACRIT for ESRD PTS) 10,000 unit MoWeFr@2100 SQ Last administered on 06/20/21at 21:27; Start 06/20/21 at 21:00 Piperacillin Sod/ Tazobactam Sod 2.25 gm/Sodium Chloride 50 ml @ 100 mls/hr Q8HRS IV Last administered on 06/23/21at 05:13; Start 06/22/21 at 13:00 Vancomycin HCl (Vanco Per Pharmacy) 1 each PRN DAILY PRN MC SEE COMMENTS Last administered on 06/23/21at 09:46; Start 06/22/21 at 11:30 Vancomycin HCl 2 gm/Sodium Chloride 500 ml @ 250 mls/hr 1X ONCE IV Last administered on 06/22/21at 14:31; Start 06/22/21 at 13:00; Stop 06/22/21 at 14:59; Status DC Vancomycin HCl (Vancomycin Random Level) 1 each 1X ONCE MC ; Start 06/24/21 at 06:00; Stop 06/24/21 at 06:01 Lactobacillus Rhamnosus (Culturelle) 1 cap BID PO ; Start 06/23/21 at 21:00 Perflutren Protein Type A Microsphe (Optison) 0.66 mg STK-MED ONCE IV ; Start 06/19/21 at 08:00; Stop 06/23/21 at 13:24; Status DC Info (PHARMACY MONITORING -- do not chart) 1 each PRN DAILY PRN MC SEE COMMENTS; Start 06/23/21 at 14:15 Active Scripts Active Reported Calcium Acetate 667 Mg Tablet 1 Tab PO TID 30 Days Zoloft (Sertraline Hcl) 100 Mg Tablet 1 Tab PO DAILY Velphoro (Sucroferric Oxyhydroxide) 500 Mg Tab.chew 1 Tab PO TID 30 Days Seroquel (Quetiapine Fumarate) 25 Mg Tablet 1 Tab PO DAILY Yajaira-Allan Rx Tablet (Vit B Cmplx 3/Fa/Vit C/Biotin) 1 Each Tablet 1 Tab PO DAILY 30 Days Clopidogrel (Clopidogrel Bisulfate) 75 Mg Tablet 1 Tab PO DAILY Pantoprazole Sodium 40 Mg Tablet.dr 40 Mg PO DAILY Oxycodone Hcl 5 Mg Capsule 5 Mg PO PRN Q4HRS PRN Lantus Solostar (Insulin Glargine,Hum.rec.anlog) 100 Unit/1 Ml Insuln.pen 32 Unit SQ QHS Hydroxyzine Hcl 25 Mg Tablet 1 Tab PO PRN Q6HRS PRN Hydralazine Hcl 100 Mg Tablet 1 Tab PO BID Gabapentin (Gabapentin) 300 Mg Capsule 300 Mg PO TID Furosemide 80 Mg Tablet 1 Tab PO DAILY Clonidine Hcl 0.1 Mg Tablet 0.1 Mg PO PRN Q8HRS PRN Carvedilol 25 Mg Tablet 50 Mg PO BIDWMEALS Atorvastatin Calcium 40 Mg Tablet 1 Tab PO QHS Aspirin Ec (Aspirin) 81 Mg Tablet. 1 Tab PO DAILY Vitals/I & O Vital Sign - Last 24 Hours 06/22/21 06/22/21 06/22/21 06/22/21 15:00 17:43 17:47 18:30 Temp 98.6 98.6 Pulse 70 70 Resp 20 19 20 B/P (MAP) 111/50 (70) 111/50 Pulse Ox 93 93 93 O2 Delivery Nasal Cannula Room Air Room Air O2 Flow Rate 2.0 06/22/21 06/22/21 06/22/21 06/23/21 19:00 20:00 23:00 03:19 Temp 98.0 99.8 99.0 98.0 99.8 99.0 Pulse 79 78 75 Resp 20 20 20 B/P (MAP) 134/60 (84) 97/56 (70) 109/62 (78) Pulse Ox 94 92 94 O2 Delivery Nasal Cannula Nasal Cannula Nasal Cannula Nasal Cannula O2 Flow Rate 2.0 06/23/21 06/23/21 06/23/21 06/23/21 07:00 08:15 08:45 09:15 Temp 98.2 98.2 Pulse 75 Resp 16 B/P (MAP) 113/65 (81) Pulse Ox 98 O2 Delivery Nasal Cannula Nasal Cannula Room Air Nasal Cannula O2 Flow Rate 2.0 06/23/21 06/23/21 11:00 13:00 Temp 98.3 98.3 Pulse 76 76 Resp 18 B/P (MAP) 93/51 (65) 93/51 Pulse Ox 96 O2 Delivery Room Air Intake and Output 06/22/21 06/22/21 06/23/21 15:00 23:00 07:00 Intake Total 220 ml Output Total 0 ml Balance 220 ml 0 ml Justifications for Admission Other Justification TJ PRESTON MD Jun 23, 2021 14:49
[2021-06-23 19:09] VITALS: BP 119/62
[2021-06-23] MEDS: GABAPENTIN 300 MG CAPSULE. PO SCH (21:31)
[2021-06-23] MEDS: LACTOBACILLUS RHAMNOSUS GG 1 CAPSULE. PO SCH (21:31)
[2021-06-23] MEDS: EPOETIN ALFA-EPBX for ESRD 20,000 UNIT/ML VIAL. SQ SCH (21:34)
[2021-06-23] MEDS: INSULIN GLARGINE SYRINGE. SQ SCH (21:43)
[2021-06-23 22:43] VITALS: BP 110/64
[2021-06-24 02:46] VITALS: BP 108/64
[2021-06-24] MEDS: PIPERACILLIN/TAZOBACTAM 2.25 GM in IV NORMAL SALINE 50ML 50 ML IV SCH ×3 (05:38→22:18)
[2021-06-24] MEDS ORDERED: VANCOMYCIN RANDOM LEVEL. MC ONE (06:00)
[2021-06-24 07:00] VITALS: BP 95/55
[2021-06-24] MEDS: INSULIN LISPRO 300 UNITS/3 ML VIAL. SQ SCH ×3 (08:00→16:47)
--- NOTE | 2021-06-24 08:55 | PN ---
DATE: 06/24/2021 SUBJECTIVE: The patient is resting, slightly propped up in bed, in no apparent respiratory distress. He is awake, alert. On questioning him, denied any complaint. Nursing staff did not voice any concern. He stated that he was dialyzed yesterday and took 2 liters of fluid. PHYSICAL EXAMINATION: GENERAL: When I saw him today, he looked well, pale, not jaundiced, cyanosed, no lymphadenopathy, no thyromegaly, no jugular venous distention. No lower limb edema. VITAL SIGNS: His heart rate was 81, blood pressure was 95/55, temperature was 97.6, respiratory rate was 15 and oxygen saturation was 95% on 2 liters of oxygen. HEAD, EYES, EARS, NOSE, AND THROAT: Normocephalic, atraumatic. NECK: Supple. HEART: Showed normal first and second heart sounds. No gallop, rub or murmur. CHEST: Showed central trachea, equal bilateral chest expansion, air entry, vesicular breath sounds. I could not really appreciate any crepitation or rhonchi. ABDOMEN: Distended, soft, nontender. NEUROLOGIC: He was awake, alert, responding appropriately. All cranial nerves are intact. He moves upper extremities without difficulty. 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 LABORATORY DATA: His intake and output are incompletely recorded. His most recent hemoglobin was 8.6, hematocrit 26.9. His white cell count was 12,000, platelet 309. His chemistry is variable, is hemodialysis dependent. His blood sugar seems to be reasonably controlled. His blood cultures are still pending at the time of this dictation. ASSESSMENT: 1. Life-threatening hyperkalemia, resolved. 2. End-stage renal disease, on hemodialysis Wednesday, Wednesday, Wednesday. 3. Severe anemia for which he received at least 3 units of packed RBCs. As of yesterday, his hemoglobin was 8.5, hematocrit 26. Today's labs are still pending at the time of this dictation. 4. Hypotension, for which he is now on midodrine 10 mg 3 times a day. I have discontinued his Coreg and hydralazine. 5. Severe peripheral vascular disease, status post left below-knee amputation. 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 7. The patient has impaired liver enzymes, ascites and required multiple paracenteses. His serum ferritin was extremely high; however, the digital marketing program manager thinks that this is just an acute phase reactant and did not signify any underlying hemochromatosis. 7. Altered mental status, confusion, diaphoresis together with fever for which I had bejarano cultured him and started him empirically on Zosyn and vancomycin. PLAN: My plan is to continue with IV antibiotic. Continue with hemodialysis Wednesday, Wednesday, Wednesday. Continue to monitor his blood sugar and adjust insulin as needed. Continue to monitor his H and H, transfuse as needed. His cultures are so far pending. OLIVIA DR: Nelson TID: [id number]
[2021-06-24] MEDS: DOCUSATE SODIUM 100 MG CAPSULE. PO SCH ×2 (09:00→21:00)
[2021-06-24] MEDS: POLYETHYLENE GLYCOL 3350 17 GM PACKET. PO SCH (09:00)
[2021-06-24 09:05] LABS: HEMATOCRIT 24.6 % (39.0-53.0)
[2021-06-24] MEDS: ASPIRIN ENTERIC COATED 81 MG TABLET.DR. PO SCH (09:24)
[2021-06-24] MEDS: MIDODRINE 5 MG TABLET PO SCH ×3 (09:24→17:34)
[2021-06-24] MEDS: CALCIUM ACETATE 667 MG CAPSULE PO SCH ×3 (09:24→17:24)
[2021-06-24] MEDS: QUEtiapine 25 MG TABLET. PO SCH (09:25)
[2021-06-24] MEDS: LACTOBACILLUS RHAMNOSUS GG 1 CAPSULE. PO SCH ×2 (09:26→21:16)
[2021-06-24] MEDS: PANTOPRAZOLE 40 MG TABLET.DR. PO SCH (09:26)
[2021-06-24] MEDS: SERTRALINE 50 MG TABLET. PO SCH (09:26)
[2021-06-24] MEDS: FOLIC/VIT B COMP W-C (RENAL) TABLET. PO SCH (09:30)
[2021-06-24] MEDS: VANCOMYCIN PER PHARMACY MC PRN (09:40)
--- NOTE | 2021-06-24 09:40 | NUR ---
Pharmacy Vancomycin Dosing Note S: Consulted to monitor and dose vancomycin started 06/22/21. O: ADRIANA GARLAND is a 40 year old M with Empiric. Other Antibiotics: ZOSYN LABS: Last BUN: 42 Last Creatinine: 8.2 Creatinine Clearance: HD MWF Last WBC: 12.1 Last Procalcitonin: -- Tmax (past 24 hours): 97.8 Microbiology: I/O: 220/ -- Drug Levels: Last Random level: 14.1 on 06/24/21 at 0825 Last dose given 06/22/21 at 1431 Vancomycin Dosing: Target Trough: 10-20 A: Based on: patient's random level and HD schedule P: 1. Begin Vancomycin 500 mg IV MWF after HD 2. Follow up Random level on 06/24/21 at 0600 3. Pharmacy will continue to monitor, follow and adjust therapy as needed. PATRICK YUAN RPH, 06/24/21 [id number]
--- NOTE | 2021-06-24 09:54 | PDOC ---
DATE OF SERVICE DATE: 06/24/21 TIME: 09:52 SUBJECTIVE ROS Stable , no concerns voiced by nursing OBJECTIVE Vital Signs Vital Signs Date Time Temp Pulse Resp B/P (MAP) Pulse Ox O2 Delivery O2 Flow Rate FiO2 06/24/21 09:24 81 95/55 06/24/21 07:00 97.8 16 95 Nasal Cannula 2.0 97.8 I & 0 Intake and Output 06/24/21 07:00 Intake Total 1300 ml Balance 1300 ml Intake Oral 1200 ml IV Total 100 ml # Voids 1 # Bowel Movements 2 PHYSICAL EXAM Physical Exam GENERAL: NAD, HEEN OM moist NECK: Supple. HEART: S1S2, SR with LBBB LUNGS: Clear to auscultation,decreased at bases Non labored ABDOMEN: soft, nontender.Obese NEUROLOGIC: awake, alert,Grossly normal No Rodriguez DERM No Rash DIAGNOSIS/ASSESSMENT Assessment & Plan ESRD- On HD MWF. He has been on Dialysis since 2017. Increased dose of Midodrine on 06/18 . No indication for dialysis today OP unit [facility]- Under Dr Godoy's care( [facility]) , per Nursing staff- chronic non compliance with treatments HyperKalemia life threatening POA - Dialyzed emergently Anemia- s/p PRBC . Ferritin elevated Continue MINDY NSTEMI: Per cardiology CAD: reported 2 stents placed about a month ago at [facility] Hx of DVT: on home eliquis Covid-19: Not Vaccinated Hx of CVA: MRI in 2016 Scattered tiny foci of restricted diffusion in different vascular territories suggesting embolic acute infarcts. Hx of Hypertension- low BP's since 06/17 Cardiology Consulted . Poorly controlled type 2 diabetes mellitus, diabetic retinopathy. Ascites and nonalcoholic steatohepatitis - Per [facility] staff he is supposed to be on scheduled paracentesis , non compliant Peritoneal nodularities and greater omental fat induration --can be seen in peritoneal carcinomatosis. Recommend diagnostic paracentesis cytology. Similar multiple prominent to mildly enlarged upper abdominal, retroperitoneal and bilateral pelvic lymph node indeterminate. Defer to Primary COMMENT/RELEVANT DATA Meds Current Medications Medications (Trade) Dose Ordered Sig/Damien Start Time Stop Time Status Last Admin Dose Admin Albumin Human 200 ml @ 200 mls/hr 1X PRN PRN 06/20/21 08:30 06/20/21 14:29 DC 06/20/21 10:30 200 MLS/HR Aspirin (Ecotrin) 81 mg DAILYWBKFT 06/19/21 08:00 06/24/21 09:24 81 MG Atorvastatin Calcium (Lipitor) 40 mg QHS 06/15/21 23:00 06/19/21 14:04 DC 06/18/21 21:00 40 MG Bisacodyl (Dulcolax Supp) 10 mg PRN DAILY PRN 06/18/21 14:15 Calcium Acetate (Phoslo) 667 mg TIDWMEALS 06/16/21 08:00 06/24/21 09:24 667 MG Carvedilol (Coreg) 50 mg BIDWMEALS 06/16/21 08:00 06/18/21 10:28 DC 06/16/21 18:18 50 MG Clonidine HCl (Catapres) 0.1 mg PRN Q8HRS PRN 06/15/21 22:30 Clopidogrel Bisulfate (Plavix) 75 mg DAILY 06/16/21 09:00 06/17/21 11:35 DC 06/17/21 10:56 75 MG Dextrose (Dextrose 50%-Water Syringe) 12.5 gm PRN Q15MIN PRN 06/15/21 20:45 Diphenhydramine HCl (Benadryl) 25 mg PRN 1X PRN 06/17/21 14:30 06/18/21 14:29 DC 06/18/21 12:43 25 MG Docusate Sodium (Colace) 100 mg BID 06/18/21 14:15 06/23/21 21:31 100 MG Epoetin Kory-epbx (RETACRIT for ESRD PTS) 10,000 unit MoWeFr@2100 06/20/21 21:00 06/23/21 21:34 10,000 UNIT Furosemide (Lasix) 80 mg DAILY 06/16/21 09:00 06/18/21 10:28 DC 06/16/21 09:00 80 MG Gabapentin (Neurontin) 300 mg QHS 06/15/21 23:00 06/23/21 21:31 300 MG Hydralazine HCl (Apresoline) 100 mg BID 06/15/21 23:00 06/18/21 10:28 DC Hydroxyzine HCl (Atarax) 25 mg PRN Q6HRS PRN 06/15/21 22:30 Info (PHARMACY MONITORING -- do not chart) 1 each PRN DAILY PRN 06/23/21 14:15 Insulin Glargine (Lantus Syringe) 32 unit QHS 06/15/21 23:00 06/23/21 21:43 32 UNIT Insulin Human Lispro (HumaLOG) 0-7 UNITS TIDWMEALS 06/16/21 08:00 06/22/21 17:42 3 UNITS Lactobacillus Rhamnosus (Culturelle) 1 cap BID 06/23/21 21:00 06/24/21 09:26 1 CAP Lidocaine HCl (Xylocaine 2% Topical 30gm Tube) 1 daljit PRN TID PRN 06/18/21 16:15 06/20/21 03:42 1 DALJIT Midodrine (Proamatine) 5 mg 1X ONCE 06/18/21 15:30 06/18/21 15:31 DC 06/18/21 17:00 5 MG Non-Formulary Medication (Sucroferric Oxyhydroxide (Velphoro)) 1 tab TID 06/16/21 09:00 06/17/21 11:17 DC Norepinephrine Bitartrate 8 mg/ Dextrose 258 ml @ 25.445 mls/ hr CONT PRN 06/18/21 10:45 06/19/21 13:47 DC 06/18/21 11:05 25.445 MLS/HR Ondansetron HCl (Zofran) 4 mg PRN Q4HRS PRN 06/18/21 13:30 06/20/21 09:08 4 MG Oxycodone HCl (Roxicodone) 10 mg PRN Q4HRS PRN 06/18/21 16:15 06/23/21 08:45 10 MG Pantoprazole Sodium (Protonix) 40 mg DAILYAC 06/16/21 07:30 06/24/21 09:26 40 MG Perflutren Protein Type A Microsphe (Optison) 0.66 mg STK-MED ONCE 06/19/21 08:00 06/23/21 13:24 DC Piperacillin Sod/ Tazobactam Sod 2.25 gm/Sodium Chloride 50 ml @ 100 mls/hr Q8HRS 06/22/21 13:00 06/24/21 05:38 100 MLS/HR Polyethylene Glycol (miraLAX PACKET) 17 gm DAILY 06/18/21 14:15 06/22/21 12:22 17 GM Quetiapine Fumarate (SEROquel) 25 mg DAILY 06/16/21 09:00 06/24/21 09:25 25 MG Sertraline HCl (Zoloft) 100 mg DAILY 06/16/21 09:00 06/24/21 09:26 100 MG Sodium Chloride 1,000 ml @ 400 mls/hr Q2H30M PRN 06/20/21 08:30 06/20/21 20:29 DC Vancomycin HCl (Vanco Per Pharmacy) 1 each PRN DAILY PRN 06/22/21 11:30 06/24/21 09:40 1 EACH Vancomycin HCl (Vancomycin Random Level) 1 each 1X ONCE 06/24/21 06:00 06/24/21 06:01 DC Vancomycin HCl 500 mg/Sodium Chloride 100 ml @ 100 mls/hr QMWF 06/25/21 16:00 Vancomycin HCl 2 gm/Sodium Chloride 500 ml @ 250 mls/hr 1X ONCE 06/22/21 13:00 06/22/21 14:59 DC 06/22/21 14:31 250 MLS/HR Vitamin B Complex/ Vitamin C (Yajaira-Allan) 1 tab DAILY 06/16/21 09:00 06/24/21 09:30 1 TAB Lab Laboratory Tests Test 06/23/21 11:16 06/23/21 18:48 06/24/21 07:53 06/24/21 08:25 Glucose (Fingerstick) 66 mg/dL (70-99) 215 mg/dL (70-99) 118 mg/dL (70-99) Hemoglobin 8.0 g/dL (13.0-17.5) Hematocrit 24.6 % (39.0-53.0) Random Vancomycin Level 14.1 mcg/mL Results All relevant outside records, renal labs, imaging studies, telemetry/EKG's were reviewed. Justicifation of Admission Dx: Justifications for Admission: Justification of Admission Dx: N/A CHANI DANIELLE MD Jun 24, 2021 09:54
--- NOTE | 2021-06-24 10:41 | PDOC ---
Date of Service: DATE: 06/24/21 TIME: 10:38 Objective: Objective: 2 stools charted, no reports of bleeding. Per nephrology note: "Per [facility] staff he is supposed to be on scheduled paracentesis , non compliant" Vital Signs: Vital Signs Date Time Temp Pulse Resp B/P (MAP) Pulse Ox O2 Delivery O2 Flow Rate FiO2 06/24/21 09:24 81 95/55 06/24/21 07:00 97.8 16 95 Nasal Cannula 2.0 97.8 Labs: Laboratory Tests Test 06/23/21 11:16 06/23/21 18:48 06/24/21 07:53 06/24/21 08:25 Glucose (Fingerstick) 66 mg/dL 215 mg/dL 118 mg/dL Hemoglobin 8.0 g/dL Hematocrit 24.6 % Random Vancomycin Level 14.1 mcg/mL PE: GEN: in COVID isolation - visual exam LUNGS: room air HEART: RR per chart ABD: large - slightly less distended? NEURO/PSYCH: sleeping, did not awaken A/P: COVID, CHF, ESRD, non-compliance ACD, h/o stercoral rectal ulcer Ascites -- Paracentesis PRN. Justicifation of Admission Dx: Justifications for Admission: Justification of Admission Dx: N/A NATASHA MANZO Jun 24, 2021 10:41
[2021-06-24 11:00] VITALS: BP 114/62
--- NOTE | 2021-06-24 12:49 | PDOC ---
CARDIO Progress Notes Date and Time Date of Service 06/24/2021 Time of Evaluation 1215 Subjective Subjective: No Chest Pain, No shortness of breath, No Palpitations Vitals Vitals Vital Signs Date Time Temp Pulse Resp B/P (MAP) Pulse Ox O2 Delivery O2 Flow Rate FiO2 06/24/21 11:00 97.5 78 18 114/62 (79) 96 Nasal Cannula 2.0 97.5 Weight Weight [ ] Input and Output Intake and Output Intake and Output 06/24/21 07:00 Intake Total 1300 ml Balance 1300 ml Intake Oral 1200 ml IV Total 100 ml # Voids 1 # Bowel Movements 2 Laboratory Labs Laboratory Tests Test 06/23/21 18:48 06/24/21 07:53 06/24/21 08:25 06/24/21 11:42 Glucose (Fingerstick) 215 mg/dL (70-99) 118 mg/dL (70-99) 68 mg/dL (70-99) Hemoglobin 8.0 g/dL (13.0-17.5) Hematocrit 24.6 % (39.0-53.0) Random Vancomycin Level 14.1 mcg/mL Physical Exam HEENT: Neck Supple W Full Motion Chest: Symmetric LUNGS: Other (diminished) Heart: RRR (intermittent V pacing) Abdomen: Soft N/T Extremities: Other (anasarca) Neurology: alert, oriented, follow commands Assessment Assessment 1. Severe anemia with possible GI bleed: no obvious bleed getting transfusion currently 2. NSTEMI: possibly demand mediated with multiple culprits CP free. EF and WM nml per TTE 3. Shock: multifactorial. BP stable and marginal 4. ESRD with severe hyperkalemia: due to missed HD 5. DM2: per PCP 6. CAD: [facility] records reviewed and noted last [facility] 01/2021 at [facility] but no intervention at that time and has had stent to RCA before. No evidence of recent stent placement 7. Hx of DVT: on home eliquis 8. Anasarca with increasing transamintis/coagulopathy: GI following 9. Protein malnutrition 10. Covid-19: denies vaccination 12. Hx of CVA: MRI in 2016 Scattered tiny foci of restricted diffusion in different vascular territories suggesting embolic acute infarcts. 13. HLP: on statin 14. 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 Continue ECASA, and will hold plavix for now and monitor H/H. Transfuse as warranted. No mention of DVT hx per records review but noted with suspected with embolic stroke which could potentially led to eliquis use but no further recent imaging reviewed to even ascertain this and prior TTE at [facility] did not reveal any cardiac thrombus. At this time no tachyarrhythmias noted and not a candidate for anticoagulation given his anemia. 2. Secondary prevention measures as tolerated. Would not be able to tolerate BP meds. Continue midodrine 3. Fluid off loading per HD 4. Continue midodrine. Monitor BP trend. Hold statin for now with elevated LFTs. Start on statin in 1-2 weeks low dose as an outpt. Follow up with [facility] cardiolog y Justicifation of Admission Dx: Justifications for Admission: Justification of Admission Dx: N/A MATT FARLEY APRN Jun 24, 2021 12:49
--- NOTE | 2021-06-24 14:27 | NUR ---
SW following. Discussed with RN, [facility] reviewing - they have many questions. KIM paged Dr. Burkett - awaiting return page. Referral faxed to [facility] as well, awaiting acceptance decision. KIM will continue to follow.
[2021-06-24 15:00] VITALS: BP 114/55
[2021-06-24] MEDS: oxyCODONE IR 5 MG TABLET PO PRN (15:31)
[2021-06-24 19:00] VITALS: BP_SYST 110; BP_SYST 119; BP_DIAS 63; BP_DIAS 71
[2021-06-24] MEDS: GABAPENTIN 300 MG CAPSULE. PO SCH (21:16)
[2021-06-24] MEDS: INSULIN GLARGINE SYRINGE. SQ SCH (21:17)
[2021-06-24 23:00] VITALS: BP 113/58
[2021-06-25] MEDS: ONDANSETRON PF 4 MG/2 ML VIAL. IVP PRN ×3 (01:22→23:06)
[2021-06-25 03:00] VITALS: BP 100/54
[2021-06-25] MEDS: PIPERACILLIN/TAZOBACTAM 2.25 GM in IV NORMAL SALINE 50ML 50 ML IV SCH ×3 (06:04→22:24)
[2021-06-25] MEDS: MIDODRINE 5 MG TABLET PO SCH ×3 (06:06→16:23)
[2021-06-25] MEDS: PANTOPRAZOLE 40 MG TABLET.DR. PO SCH (07:30)
[2021-06-25 07:44] LABS: BASO # 0.1 x10^3/uL (0.0-0.2); BASO % 1 % (0-3); EOS # 0.5 x10^3/uL (0.0-0.7); EOS % 5 % (0-3); HEMATOCRIT 28.3 % (39.0-53.0); LYMPH # 0.8 x10^3/uL (1.0-4.8); LYMPH % 7 % (24-48); MEAN CORPUSCULAR HEMOGLOBIN 29 pg (25-35); MEAN CORPUSCULAR HGB CONC 32 g/dL (31-37); MEAN CORPUSCULAR VOLUME 91 fL (79-100); MONO % 10 % (0-9); NEUT # 7.9 x10^3/uL (1.8-7.7); NEUT % 77 % (31-73); PLATELET COUNT 282 x10^3/uL (140-400); RED BLOOD COUNT 3.12 x10^6/uL (4.30-5.70); RED CELL DISTRIBUTION WIDTH 15.9 % (11.5-14.5); WHITE BLOOD COUNT 10.2 x10^3/uL (4.0-11.0)
[2021-06-25] MEDS ORDERED: DIALYSIS PATIENT. MC PRN ×2 (07:45)
[2021-06-25] MEDS ORDERED: IV NORMAL SALINE 1000ML BAG 1,000 ML IV PRN ×2 (07:45)
[2021-06-25] MEDS: ASPIRIN ENTERIC COATED 81 MG TABLET.DR. PO SCH (07:51)
[2021-06-25] MEDS: CALCIUM ACETATE 667 MG CAPSULE PO SCH ×3 (07:52→17:00)
[2021-06-25] MEDS: LACTOBACILLUS RHAMNOSUS GG 1 CAPSULE. PO SCH ×2 (07:52→22:24)
[2021-06-25] MEDS: POLYETHYLENE GLYCOL 3350 17 GM PACKET. PO SCH (07:52)
[2021-06-25] MEDS: QUEtiapine 25 MG TABLET. PO SCH (07:52)
[2021-06-25] MEDS: DOCUSATE SODIUM 100 MG CAPSULE. PO SCH ×3 (07:52→22:24)
[2021-06-25] MEDS: FOLIC/VIT B COMP W-C (RENAL) TABLET. PO SCH (07:52)
[2021-06-25] MEDS: SERTRALINE 50 MG TABLET. PO SCH (07:53)
[2021-06-25 07:59] VITALS: BP 125/65
[2021-06-25] MEDS: INSULIN LISPRO 300 UNITS/3 ML VIAL. SQ SCH ×3 (08:00→17:00)
[2021-06-25 08:01] LABS: ALBUMIN 1.3 g/dL (3.4-5.0); ALBUMIN/GLOBULIN RATIO 0.4 (1.0-1.7); CALCIUM 7.4 mg/dL (8.5-10.1); CREATININE 7.8 mg/dL (0.7-1.3); GFR 7.7; POTASSIUM 5.5 mmol/L (3.5-5.1); TOTAL BILIRUBIN 0.4 mg/dL (0.2-1.0); TOTAL PROTEIN 4.8 g/dL (6.4-8.2)
--- NOTE | 2021-06-25 10:25 | PDOC ---
Date of Service: DATE: 06/25/21 TIME: 10:19 Subjective: Subjective: Tolerating diet, says stooling without issue, denies bleeding. Objective: Objective: D/w cardiology - wondering if could restart Plavix - gave ok from GI standpoint, continue PPI and Miralax, monitor labs and for bleeding. 2 stools charted. D/w social work yesterday - unclear details re: past paracentesis schedule - recommended PRN. Vital Signs: Vital Signs Date Time Temp Pulse Resp B/P (MAP) Pulse Ox O2 Delivery O2 Flow Rate FiO2 06/25/21 07:59 98.4 73 125/65 (85) 97 98.4 06/25/21 07:27 Nasal Cannula 2.0 06/25/21 03:00 20 Labs: Laboratory Tests Test 06/24/21 11:42 06/24/21 16:38 06/24/21 20:56 06/25/21 07:10 Glucose (Fingerstick) 68 mg/dL 81 mg/dL 97 mg/dL White Blood Count 10.2 x10^3/uL Red Blood Count 3.12 x10^6/uL Hemoglobin 9.0 g/dL Hematocrit 28.3 % Mean Corpuscular Volume 91 fL Mean Corpuscular Hemoglobin 29 pg Mean Corpuscular Hemoglobin Concent 32 g/dL Red Cell Distribution Width 15.9 % Platelet Count 282 x10^3/uL Neutrophils (%) (Auto) 77 % Lymphocytes (%) (Auto) 7 % Monocytes (%) (Auto) 10 % Eosinophils (%) (Auto) 5 % Basophils (%) (Auto) 1 % Neutrophils # (Auto) 7.9 x10^3/uL Lymphocytes # (Auto) 0.8 x10^3/uL Monocytes # (Auto) 1.0 x10^3/uL Eosinophils # (Auto) 0.5 x10^3/uL Basophils # (Auto) 0.1 x10^3/uL Sodium Level 134 mmol/L Potassium Level 5.5 mmol/L Chloride Level 99 mmol/L Carbon Dioxide Level 24 mmol/L Anion Gap 11 Blood Urea Nitrogen 38 mg/dL Creatinine 7.8 mg/dL Estimated GFR (Cockcroft-Gault) 7.7 BUN/Creatinine Ratio 5 Glucose Level 74 mg/dL Calcium Level 7.4 mg/dL Total Bilirubin 0.4 mg/dL Aspartate Amino Transf (AST/SGOT) 24 U/L Alanine Aminotransferase (ALT/SGPT) 45 U/L Alkaline Phosphatase 222 U/L Total Protein 4.8 g/dL Albumin 1.3 g/dL Albumin/Globulin Ratio 0.4 Test 06/25/21 09:11 06/25/21 09:31 Glucose (Fingerstick) 67 mg/dL 96 mg/dL Cur PE: GEN: NAD, eating breakfast with enthusiasm - visual exam done since in COVID iso lation LUNGS: on room air HEART: RRR ABD: distended - stable NEURO/PSYCH: A & O 3 A/P: COVID, CHF, CAD, CVA, ESRD, h/o non-compliance ACD, h/o stercoral rectal ulcer - Hgb better, no obvious GI bleeding and very recent scopes @ [facility] -- Plans to resume Plavix, observe. Justicifation of Admission Dx: Justifications for Admission: Justification of Admission Dx: N/A NATASHA MANZO Jun 25, 2021 10:25
--- NOTE | 2021-06-25 11:06 | PDOC ---
DATE OF SERVICE DATE: 06/25/21 TIME: 11:03 SUBJECTIVE ROS Stable , seen during dialysis, No complaints OBJECTIVE Vital Signs Vital Signs Date Time Temp Pulse Resp B/P (MAP) Pulse Ox O2 Delivery O2 Flow Rate FiO2 06/25/21 07:59 98.4 73 125/65 (85) 97 98.4 06/25/21 07:27 Nasal Cannula 2.0 06/25/21 03:00 20 I & 0 Intake and Output 06/25/21 07:00 Intake Total 1200 ml Output Total 300 ml Balance 900 ml Intake Oral 1200 ml Output Urine Total 300 ml # Voids 2 # Bowel Movements 2 PHYSICAL EXAM Physical Exam GENERAL: NAD, HEEN OM moist NECK: Supple. HEART: S1S2, SR with LBBB LUNGS: Clear to auscultation,decreased at bases Non labored ABDOMEN: soft, nontender.Obese NEUROLOGIC: awake, alert,Grossly normal No Rodriguez DERM No Rash DIAGNOSIS/ASSESSMENT Assessment & Plan ESRD- On HD MWF. He has been on Dialysis since 2017. Seen during treatment , tolerating well. Continue as ordered. [facility] OP unit [facility]- Under Dr Godoy's care( [facility]) , per Nursing staff- chronic non compliance with treatments HyperKalemia life threatening POA - Dialyzed emergently . K mildly elevated - Dialysis Anemia- s/p PRBC .Stable Ferritin elevated Continue MINDY NSTEMI: Per cardiology CAD: reported 2 stents placed about a month ago at [facility] Hx of DVT: on home eliquis Covid-19: Not Vaccinated Hx of CVA: MRI in 2016 Scattered tiny foci of restricted diffusion in different vascular territories suggesting embolic acute infarcts. Hx of Hypertension- low BP's since 06/17 , BP improved , Increased Midodrine to 10 mg TID Poorly controlled type 2 diabetes mellitus, diabetic retinopathy. Ascites and nonalcoholic steatohepatitis - Per [facility] staff he is supposed to be on scheduled paracentesis , non compliant Peritoneal nodularities and greater omental fat induration --can be seen in tae toneal carcinomatosis. Recommend diagnostic paracentesis cytology. Similar multiple prominent to mildly enlarged upper abdominal, retroperitoneal and bilateral pelvic lymph node indeterminate. Defer to Primary COMMENT/RELEVANT DATA Meds Current Medications Medications (Trade) Dose Ordered Sig/Damien Start Time Stop Time Status Last Admin Dose Admin Albumin Human 200 ml @ 200 mls/hr 1X PRN PRN 06/20/21 08:30 06/20/21 14:29 DC 06/20/21 10:30 200 MLS/HR Aspirin (Ecotrin) 81 mg [id number] 06/19/21 08:00 06/24/21 09:24 81 MG Atorvastatin Calcium (Lipitor) 40 mg QHS 06/15/21 23:00 06/19/21 14:04 DC 06/18/21 21:00 40 MG Bisacodyl (Dulcolax Supp) 10 mg PRN DAILY PRN 06/18/21 14:15 Calcium Acetate (Phoslo) 667 mg TIDWMEALS 06/16/21 08:00 06/24/21 17:24 667 MG Carvedilol (Coreg) 50 mg BIDWMEALS 06/16/21 08:00 06/18/21 10:28 DC 06/16/21 18:18 50 MG Clonidine HCl (Catapres) 0.1 mg PRN Q8HRS PRN 06/15/21 22:30 Clopidogrel Bisulfate (Plavix) 75 mg DAILY 06/16/21 09:00 06/17/21 11:35 DC 06/17/21 10:56 75 MG Dextrose (Dextrose 50%-Water Syringe) 12.5 gm PRN Q15MIN PRN 06/15/21 20:45 Diphenhydramine HCl (Benadryl) 25 mg PRN 1X PRN 06/17/21 14:30 06/18/21 14:29 DC 06/18/21 12:43 25 MG Docusate Sodium (Colace) 100 mg BID 06/18/21 14:15 06/23/21 21:31 100 MG Epoetin Kory-epbx (RETACRIT for ESRD PTS) 10,000 unit MoWeFr@2100 06/20/21 21:00 06/23/21 21:34 10,000 UNIT Furosemide (Lasix) 80 mg DAILY 06/16/21 09:00 06/18/21 10:28 DC 06/16/21 09:00 80 MG Gabapentin (Neurontin) 300 mg QHS 06/15/21 23:00 06/24/21 21:16 300 MG Hydralazine HCl (Apresoline) 100 mg BID 06/15/21 23:00 06/18/21 10:28 DC Hydroxyzine HCl (Atarax) 25 mg PRN Q6HRS PRN 06/15/21 22:30 Info (PHARMACY MONITORING -- do not chart) 1 each PRN DAILY PRN 06/25/21 07:45 Insulin Glargine (Lantus Syringe) 32 unit QHS 06/15/21 23:00 06/24/21 21:17 32 UNIT Insulin Human Lispro (HumaLOG) 0-7 UNITS TIDWMEALS 06/16/21 08:00 06/22/21 17:42 3 UNITS Lactobacillus Rhamnosus (Culturelle) 1 cap BID 06/23/21 21:00 06/24/21 21:16 1 CAP Lidocaine HCl (Xylocaine 2% Topical 30gm Tube) 1 daljit PRN TID PRN 06/18/21 16:15 06/20/21 03:42 1 DALJIT Midodrine (Proamatine) 5 mg 1X ONCE 06/18/21 15:30 06/18/21 15:31 DC 06/18/21 17:00 5 MG Non-Formulary Medication (Sucroferric Oxyhydroxide (Velphoro)) 1 tab TID 06/16/21 09:00 06/17/21 11:17 DC Norepinephrine Bitartrate 8 mg/ Dextrose 258 ml @ 25.445 mls/ hr CONT PRN 06/18/21 10:45 06/19/21 13:47 DC 06/18/21 11:05 25.445 MLS/HR Ondansetron HCl (Zofran) 4 mg PRN Q4HRS PRN 06/18/21 13:30 06/25/21 01:22 4 MG Oxycodone HCl (Roxicodone) 10 mg PRN Q4HRS PRN 06/18/21 16:15 06/24/21 15:31 10 MG Pantoprazole Sodium (Protonix) 40 mg DAILYAC 06/16/21 07:30 06/24/21 09:26 40 MG Perflutren Protein Type A Microsphe (Optison) 0.66 mg STK-MED ONCE 06/19/21 07:23 06/24/21 12:47 DC Piperacillin Sod/ Tazobactam Sod 2.25 gm/Sodium Chloride 50 ml @ 100 mls/hr Q8HRS 06/22/21 13:00 06/25/21 06:04 100 MLS/HR Polyethylene Glycol (miraLAX PACKET) 17 gm DAILY 06/18/21 14:15 06/22/21 12:22 17 GM Quetiapine Fumarate (SEROquel) 25 mg DAILY 06/16/21 09:00 06/24/21 09:25 25 MG Sertraline HCl (Zoloft) 100 mg DAILY 06/16/21 09:00 06/24/21 09:26 100 MG Sodium Chloride 1,000 ml @ 400 mls/hr Q2H30M PRN 06/25/21 07:45 06/25/21 19:44 Vancomycin HCl (Vanco Per Pharmacy) 1 each PRN DAILY PRN 06/22/21 11:30 06/24/21 09:40 1 EACH Vancomycin HCl (Vancomycin Random Level) 1 each 1X ONCE 06/24/21 06:00 06/24/21 06:01 DC 06/24/21 07:25 1 EACH Vancomycin HCl 500 mg/Sodium Chloride 100 ml @ 100 mls/hr QMWF 06/25/21 16:00 Vancomycin HCl 2 gm/Sodium Chloride 500 ml @ 250 mls/hr 1X ONCE 06/22/21 13:00 06/22/21 14:59 DC 06/22/21 14:31 250 MLS/HR Vitamin B Complex/ Vitamin C (Yajaira-Allan) 1 tab DAILY 06/16/21 09:00 06/24/21 09:30 1 TAB Lab Laboratory Tests Test 06/24/21 11:42 06/24/21 16:38 06/24/21 20:56 06/25/21 07:10 Glucose (Fingerstick) 68 mg/dL (70-99) 81 mg/dL (70-99) 97 mg/dL (70-99) White Blood Count 10.2 x10^3/uL (4.0-11.0) Red Blood Count 3.12 x10^6/uL (4.30-5.70) Hemoglobin 9.0 g/dL (13.0-17.5) Hematocrit 28.3 % (39.0-53.0) Mean Corpuscular Volume 91 fL (79-100) Mean Corpuscular Hemoglobin 29 pg (25-35) Mean Corpuscular Hemoglobin Concent 32 g/dL (31-37) Red Cell Distribution Width 15.9 % (11.5-14.5) Platelet Count 282 x10^3/uL (140-400) Neutrophils (%) (Auto) 77 % (31-73) Lymphocytes (%) (Auto) 7 % (24-48) Monocytes (%) (Auto) 10 % (0-9) Eosinophils (%) (Auto) 5 % (0-3) Basophils (%) (Auto) 1 % (0-3) Neutrophils # (Auto) 7.9 x10^3/uL (1.8-7.7) Lymphocytes # (Auto) 0.8 x10^3/uL (1.0-4.8) Monocytes # (Auto) 1.0 x10^3/uL (0.0-1.1) Eosinophils # (Auto) 0.5 x10^3/uL (0.0-0.7) Basophils # (Auto) 0.1 x10^3/uL (0.0-0.2) Sodium Level 134 mmol/L (136-145) Potassium Level 5.5 mmol/L (3.5-5.1) Chloride Level 99 mmol/L (98-107) Carbon Dioxide Level 24 mmol/L (21-32) Anion Gap 11 (6-14) Blood Urea Nitrogen 38 mg/dL (8-26) Creatinine 7.8 mg/dL (0.7-1.3) Estimated GFR (Cockcroft-Gault) 7.7 BUN/Creatinine Ratio 5 (6-20) Glucose Level 74 mg/dL (70-99) Calcium Level 7.4 mg/dL (8.5-10.1) Total Bilirubin 0.4 mg/dL (0.2-1.0) Aspartate Amino Transf (AST/SGOT) 24 U/L (15-37) Alanine Aminotransferase (ALT/SGPT) 45 U/L (16-63) Alkaline Phosphatase 222 U/L (46-116) Total Protein 4.8 g/dL (6.4-8.2) Albumin 1.3 g/dL (3.4-5.0) Albumin/Globulin Ratio 0.4 (1.0-1.7) Test 06/25/21 09:11 06/25/21 09:31 Glucose (Fingerstick) 67 mg/dL (70-99) 96 mg/dL (70-99) Results All relevant outside records, renal labs, imaging studies, telemetry/EKG's were reviewed. Justicifation of Admission Dx: Justifications for Admission: Justification of Admission Dx: N/A CHANI DANIELLE MD Jun 25, 2021 11:06
--- NOTE | 2021-06-25 11:12 | PDOC ---
CARDIO Progress Notes Date and Time Date of Service 06/25/2021 Time of Evaluation 0930 Subjective Subjective: No Chest Pain, No shortness of breath, No Palpitations Vitals Vitals Vital Signs Date Time Temp Pulse Resp B/P (MAP) Pulse Ox O2 Delivery O2 Flow Rate FiO2 06/25/21 07:59 98.4 73 125/65 (85) 97 98.4 06/25/21 07:27 Nasal Cannula 2.0 06/25/21 03:00 20 Weight Weight [ ] Input and Output Intake and Output Intake and Output 06/25/21 07:00 Intake Total 1200 ml Output Total 300 ml Balance 900 ml Intake Oral 1200 ml Output Urine Total 300 ml # Voids 2 # Bowel Movements 2 Laboratory Labs Laboratory Tests Test 06/24/21 11:42 06/24/21 16:38 06/24/21 20:56 06/25/21 07:10 Glucose (Fingerstick) 68 mg/dL (70-99) 81 mg/dL (70-99) 97 mg/dL (70-99) White Blood Count 10.2 x10^3/uL (4.0-11.0) Red Blood Count 3.12 x10^6/uL (4.30-5.70) Hemoglobin 9.0 g/dL (13.0-17.5) Hematocrit 28.3 % (39.0-53.0) Mean Corpuscular Volume 91 fL (79-100) Mean Corpuscular Hemoglobin 29 pg (25-35) Mean Corpuscular Hemoglobin Concent 32 g/dL (31-37) Red Cell Distribution Width 15.9 % (11.5-14.5) Platelet Count 282 x10^3/uL (140-400) Neutrophils (%) (Auto) 77 % (31-73) Lymphocytes (%) (Auto) 7 % (24-48) Monocytes (%) (Auto) 10 % (0-9) Eosinophils (%) (Auto) 5 % (0-3) Basophils (%) (Auto) 1 % (0-3) Neutrophils # (Auto) 7.9 x10^3/uL (1.8-7.7) Lymphocytes # (Auto) 0.8 x10^3/uL (1.0-4.8) Monocytes # (Auto) 1.0 x10^3/uL (0.0-1.1) Eosinophils # (Auto) 0.5 x10^3/uL (0.0-0.7) Basophils # (Auto) 0.1 x10^3/uL (0.0-0.2) Sodium Level 134 mmol/L (136-145) Potassium Level 5.5 mmol/L (3.5-5.1) Chloride Level 99 mmol/L (98-107) Carbon Dioxide Level 24 mmol/L (21-32) Anion Gap 11 (6-14) Blood Urea Nitrogen 38 mg/dL (8-26) Creatinine 7.8 mg/dL (0.7-1.3) Estimated GFR (Cockcroft-Gault) 7.7 BUN/Creatinine Ratio 5 (6-20) Glucose Level 74 mg/dL (70-99) Calcium Level 7.4 mg/dL (8.5-10.1) Total Bilirubin 0.4 mg/dL (0.2-1.0) Aspartate Amino Transf (AST/SGOT) 24 U/L (15-37) Alanine Aminotransferase (ALT/SGPT) 45 U/L (16-63) Alkaline Phosphatase 222 U/L (46-116) Total Protein 4.8 g/dL (6.4-8.2) Albumin 1.3 g/dL (3.4-5.0) Albumin/Globulin Ratio 0.4 (1.0-1.7) Test 06/25/21 09:11 06/25/21 09:31 Glucose (Fingerstick) 67 mg/dL (70-99) 96 mg/dL (70-99) Physical Exam HEENT: Neck Supple W Full Motion Chest: Symmetric LUNGS: Other (diminished) Heart: RRR (intermittent V pacing) Abdomen: Soft N/T Extremities: Other (anasarca) Neurology: alert, oriented, follow commands Assessment Assessment 1. Severe anemia with possible GI bleed: no obvious bleed getting transfusion currently 2. NSTEMI: possibly demand mediated with multiple culprits CP free. EF and WM nml per TTE 3. Shock: multifactorial. BP stable and marginal 4. ESRD with severe hyperkalemia: due to missed HD 5. DM2: per PCP 6. CAD: [facility] records reviewed and noted last [facility] 01/2021 at [facility] but no intervention at that time and has had stent to RCA before. No evidence of recent stent placement 7. Hx of DVT: on home eliquis 8. Anasarca with increasing transamintis/coagulopathy: GI following 9. Protein malnutrition 10. Covid-19: denies vaccination 12. Hx of CVA: MRI in 2016 Scattered tiny foci of restricted diffusion in different vascular territories suggesting embolic acute infarcts. 13. HLP: on statin 14. 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 Continue ECASA, Discussed with GI and ok to restart plavix. He will need hemogram next week during HD 2. Secondary prevention measures as tolerated. Would not be able to tolerate BP meds. Continue midodrine 3. Fluid off loading per HD 4. Continue midodrine. Monitor BP trend. Hold statin for now with elevated LFTs. Start on statin in 1-2 weeks low dose as an outpt. Follow up with EBONY rosen Justicifation of Admission Dx: Justifications for Admission: Justification of Admission Dx: N/A MATT FARLEY APRN Jun 25, 2021 11:12
--- NOTE | 2021-06-25 12:41 | NUR ---
SW following. Discussed with RN, [facility] has declined to take pt due to pt having [place] medicaid and their facility being in [place], so pt would have $190/day copays when [facility] decides to stop covering 100%, they also declined due to pt having many needs. KIM spoke with Dr. Burkett, pt can go to any facility, does not need to have in house dialysis. SW faxed referral to [facility], awaiting acceptance decision. SW will continue to follow.
--- NOTE | 2021-06-25 13:09 | PN ---
DATE: 06/25/2021 SUBJECTIVE: The patient is resting almost flat in bed, sleeping comfortably, having his scheduled hemodialysis. On questioning him, he denied any complaint. The nursing staff did not voice any concerns that he had an uneventful night. PHYSICAL EXAMINATION: GENERAL: When I examined him, he looked pale, not jaundiced or cyanosed, no lymphadenopathy, no thyromegaly, no jugular venous distention. No lower limb edema. VITAL SIGNS: His heart rate was 73, blood pressure was 125/65, temperature was 98.4, respiratory rate was 20, and oxygen saturation was 97% on 2 liters of oxygen. The rest of clinical exam is stable, has not really changed. LABORATORY DATA: This morning showed a white cell count of 10,000, hemoglobin 9, hematocrit 28, MCV 91, and platelet count 282,000. His chemistry showed a serum sodium 134, potassium 5.5, chloride 99, bicarbonate 24, anion gap of 11, BUN 38, creatinine 7.8, estimated GFR was 7.7, glucose was 74, calcium was 7.4. Total bilirubin, AST, ALT were normal. Alkaline phosphatase slightly elevated. Total protein 5.8, albumin 1.3. ASSESSMENT: 1. Life-threatening hyperkalemia, resolved. 2. End-stage renal disease, on hemodialysis Wednesday, Wednesday, Wednesday. 3. Severe anemia for which he received at least 3 units of packed RBCs. As of this morning, his hemoglobin is 9, hematocrit 26. 4. Hypotension for which he is now on midodrine 10 mg 3 times a day. I have discontinued his Coreg and hydralazine. 5. Severe peripheral vascular disease, status post left below-knee amputation. 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 7. The patient has impaired liver enzyme, ascites and required multiple paracenteses. Serum ferritin was extremely high; however, the merchandise collector thinks that this is an acute phase reactant and did not think that it signifies any underlying hemochromatosis. 8. Altered mental status, confusion, diaphoresis together with fever for which I have bejarano cultured him and started empirically on Zosyn and vancomycin. So far, unfortunately, no blood cultures were taken. He has been afebrile for the last 72 hours. PLAN: My plan is to discontinue the vancomycin and probably switch him to oral Augmentin. I have spoken with the charge nurse who is willing to discuss with the immigration case worker that they need to discharge him to a long term facility with in-house hemodialysis unit like a [facility] in [place]. Otherwise, he can be discharged back to his apartment with his private caregiver. HEAVEN DR: Nelson TID: [id number]
[2021-06-25] MEDS: oxyCODONE IR 5 MG TABLET PO PRN (13:46)
[2021-06-25 15:00] VITALS: BP 125/63
[2021-06-25] MEDS ORDERED: VANCOMYCIN 500 MG in IV NORMAL SALINE 100ML 100 ML IV SCH (16:00)
[2021-06-25 19:00] VITALS: BP 131/67
[2021-06-25] MEDS: INSULIN GLARGINE SYRINGE. SQ SCH (21:00)
[2021-06-25] MEDS: EPOETIN ALFA-EPBX for ESRD 20,000 UNIT/ML VIAL. SQ SCH (22:23)
[2021-06-25] MEDS: GABAPENTIN 300 MG CAPSULE. PO SCH (22:24)
[2021-06-25 23:08] VITALS: BP 130/74
[2021-06-26 03:16] VITALS: BP 131/59
[2021-06-26] MEDS: PIPERACILLIN/TAZOBACTAM 2.25 GM in IV NORMAL SALINE 50ML 50 ML IV SCH ×2 (06:11→13:06)
[2021-06-26] MEDS: oxyCODONE IR 5 MG TABLET PO PRN (06:20)
[2021-06-26] MEDS: ONDANSETRON PF 4 MG/2 ML VIAL. IVP PRN ×2 (06:21→18:45)
[2021-06-26 07:00] VITALS: BP 109/65
[2021-06-26] MEDS: INSULIN LISPRO 300 UNITS/3 ML VIAL. SQ SCH ×3 (08:00→17:00)
[2021-06-26 08:01] LABS: HEMATOCRIT 28.1 % (39.0-53.0); HEMOGLOBIN 8.8 g/dL (13.0-17.5)
--- NOTE | 2021-06-26 08:40 | NUR ---
Pt drank juice this am for fsbs of 64 per NA.
[2021-06-26] MEDS: CALCIUM ACETATE 667 MG CAPSULE PO SCH ×3 (08:55→18:44)
[2021-06-26] MEDS: ASPIRIN ENTERIC COATED 81 MG TABLET.DR. PO SCH (08:56)
[2021-06-26] MEDS: CLOPIDOGREL BISULFATE 75 MG TABLET PO SCH (08:56)
[2021-06-26] MEDS: LACTOBACILLUS RHAMNOSUS GG 1 CAPSULE. PO SCH ×2 (08:56→21:50)
[2021-06-26] MEDS: QUEtiapine 25 MG TABLET. PO SCH (08:57)
[2021-06-26] MEDS: PANTOPRAZOLE 40 MG TABLET.DR. PO SCH (08:57)
[2021-06-26] MEDS: FOLIC/VIT B COMP W-C (RENAL) TABLET. PO SCH (08:57)
[2021-06-26] MEDS: SERTRALINE 50 MG TABLET. PO SCH (08:57)
[2021-06-26] MEDS: MIDODRINE 5 MG TABLET PO SCH ×3 (08:57→18:00)
[2021-06-26] MEDS: DOCUSATE SODIUM 100 MG CAPSULE. PO SCH ×2 (08:58→21:00)
[2021-06-26] MEDS: POLYETHYLENE GLYCOL 3350 17 GM PACKET. PO SCH (08:59)
--- NOTE | 2021-06-26 10:17 | PDOC ---
DATE OF SERVICE DATE: 06/26/21 TIME: 10:16 SUBJECTIVE ROS Stable , No complaints OBJECTIVE Vital Signs Vital Signs Date Time Temp Pulse Resp B/P (MAP) Pulse Ox O2 Delivery O2 Flow Rate FiO2 06/26/21 08:57 79 109/65 06/26/21 08:00 Room Air 06/26/21 07:00 98.5 17 94 98.5 06/25/21 07:27 2.0 I & 0 Intake and Output 06/26/21 07:00 Intake Total 700 ml Balance 700 ml Intake Oral 700 ml # Bowel Movements 1 PHYSICAL EXAM Physical Exam GENERAL: NAD, HEEN OM moist NECK: Supple. HEART: S1S2, SR with LBBB LUNGS: Clear to auscultation,decreased at bases Non labored ABDOMEN: soft, nontender.Obese NEUROLOGIC: awake, alert,Grossly normal No Rodriguez DERM No Rash DIAGNOSIS/ASSESSMENT Assessment & Plan ESRD- On HD MWF. He has been on Dialysis since 2017. Currently No indication today OP unit LE [facility]- Under Dr Godoy's care( [facility]) , per Nursing staff- chronic non compliance with treatments HyperKalemia life threatening POA - Dialyzed emergently . Anemia- s/p PRBC .Stable Ferritin elevated Continue MINDY NSTEMI: Per cardiology CAD: reported 2 stents placed about a month ago at [facility] Hx of DVT: on home eliquis Covid-19: Not Vaccinated Hx of CVA: MRI in 2016 Scattered tiny foci of restricted diffusion in different vascular territories suggesting embolic acute infarcts. Hx of Hypertension- low BP's since 06/17 , BP improved , Increased Midodrine to 10 mg TID Poorly controlled type 2 diabetes mellitus, diabetic retinopathy. Ascites and nonalcoholic steatohepatitis - Per [facility] staff he is supposed to be on scheduled paracentesis , non compliant Peritoneal nodularities and greater omental fat induration --can be seen in peritoneal carcinomatosis. Recommend diagnostic paracentesis cytology. Similar multiple prominent to mildly enlarged upper abdominal, retroperitoneal and bilateral pelvic lymph node indeterminate. Defer to Primary COMMENT/RELEVANT DATA Meds Current Medications Medications (Trade) Dose Ordered Sig/Damien Start Time Stop Time Status Last Admin Dose Admin Albumin Human 200 ml @ 200 mls/hr 1X PRN PRN 06/20/21 08:30 06/20/21 14:29 DC 06/20/21 10:30 200 MLS/HR Aspirin (Ecotrin) 81 mg DAILYWBKFT 06/19/21 08:00 06/26/21 08:56 81 MG Atorvastatin Calcium (Lipitor) 40 mg QHS 06/15/21 23:00 06/19/21 14:04 DC 06/18/21 21:00 40 MG Bisacodyl (Dulcolax Supp) 10 mg PRN DAILY PRN 06/18/21 14:15 Calcium Acetate (Phoslo) 667 mg TIDWMEALS 06/16/21 08:00 06/26/21 08:55 667 MG Carvedilol (Coreg) 50 mg BIDWMEALS 06/16/21 08:00 06/18/21 10:28 DC 06/16/21 18:18 50 MG Clonidine HCl (Catapres) 0.1 mg PRN Q8HRS PRN 06/15/21 22:30 Clopidogrel Bisulfate (Plavix) 75 mg DAILYWBKFT 06/26/21 08:00 06/26/21 08:56 75 MG Dextrose (Dextrose 50%-Water Syringe) 12.5 gm PRN Q15MIN PRN 06/15/21 20:45 Diphenhydramine HCl (Benadryl) 25 mg PRN 1X PRN 06/17/21 14:30 06/18/21 14:29 DC 06/18/21 12:43 25 MG Docusate Sodium (Colace) 100 mg BID 06/18/21 14:15 06/23/21 21:31 100 MG Epoetin Kory-epbx (RETACRIT for ESRD PTS) 10,000 unit MoWeFr@2100 06/20/21 21:00 06/25/21 22:23 10,000 UNIT Furosemide (Lasix) 80 mg DAILY 06/16/21 09:00 06/18/21 10:28 DC 06/16/21 09:00 80 MG Gabapentin (Neurontin) 300 mg QHS 06/15/21 23:00 06/25/21 22:24 300 MG Hydralazine HCl (Apresoline) 100 mg BID 06/15/21 23:00 06/18/21 10:28 DC Hydroxyzine HCl (Atarax) 25 mg PRN Q6HRS PRN 06/15/21 22:30 Info (PHARMACY MONITORING -- do not chart) 1 each PRN DAILY PRN 06/25/21 07:45 Insulin Glargine (Lantus Syringe) 32 unit QHS 06/15/21 23:00 06/25/21 21:00 32 UNIT Insulin Human Lispro (HumaLOG) 0-7 UNITS TIDWMEALS 06/16/21 08:00 06/22/21 17:42 3 UNITS Lactobacillus Rhamnosus (Culturelle) 1 cap BID 06/23/21 21:00 06/26/21 08:56 1 CAP Lidocaine HCl (Xylocaine 2% Topical 30gm Tube) 1 daljit PRN TID PRN 06/18/21 16:15 06/20/21 03:42 1 DALJIT Midodrine (Proamatine) 5 mg 1X ONCE 06/18/21 15:30 06/18/21 15:31 DC 06/18/21 17:00 5 MG Non-Formulary Medication (Sucroferric Oxyhydroxide (Velphoro)) 1 tab TID 06/16/21 09:00 06/17/21 11:17 DC Norepinephrine Bitartrate 8 mg/ Dextrose 258 ml @ 25.445 mls/ hr CONT PRN 06/18/21 10:45 06/19/21 13:47 DC 06/18/21 11:05 25.445 MLS/HR Ondansetron HCl (Zofran) 4 mg PRN Q4HRS PRN 06/18/21 13:30 06/26/21 06:21 4 MG Oxycodone HCl (Roxicodone) 10 mg PRN Q4HRS PRN 06/18/21 16:15 06/26/21 06:20 10 MG Pantoprazole Sodium (Protonix) 40 mg DAILYAC 06/16/21 07:30 06/26/21 08:57 40 MG Perflutren Protein Type A Microsphe (Optison) 0.66 mg STK-MED ONCE 06/19/21 07:23 06/24/21 12:47 DC Piperacillin Sod/ Tazobactam Sod 2.25 gm/Sodium Chloride 50 ml @ 100 mls/hr Q8HRS 06/22/21 13:00 06/26/21 06:11 100 MLS/HR Polyethylene Glycol (miraLAX PACKET) 17 gm DAILY 06/18/21 14:15 06/22/21 12:22 17 GM Quetiapine Fumarate (SEROquel) 25 mg DAILY 06/16/21 09:00 06/26/21 08:57 25 MG Sertraline HCl (Zoloft) 100 mg DAILY 06/16/21 09:00 06/26/21 08:57 100 MG Sodium Chloride 1,000 ml @ 400 mls/hr Q2H30M PRN 06/25/21 07:45 06/25/21 19:44 DC Vancomycin HCl (Vanco Per Pharmacy) 1 each PRN DAILY PRN 06/22/21 11:30 06/25/21 11:18 DC 06/24/21 09:40 1 EACH Vancomycin HCl (Vancomycin Random Level) 1 each 1X ONCE 06/24/21 06:00 06/24/21 06:01 DC 06/24/21 07:25 1 EACH Vancomycin HCl 500 mg/Sodium Chloride 100 ml @ 100 mls/hr QMWF 06/25/21 16:00 06/25/21 11:16 DC Vancomycin HCl 2 gm/Sodium Chloride 500 ml @ 250 mls/hr 1X ONCE 06/22/21 13:00 06/22/21 14:59 DC 06/22/21 14:31 250 MLS/HR Vitamin B Complex/ Vitamin C (Yajaira-Allan) 1 tab DAILY 06/16/21 09:00 06/26/21 08:57 1 TAB Lab Laboratory Tests Test 06/25/21 19:50 06/25/21 22:51 06/26/21 02:48 06/26/21 06:55 Glucose (Fingerstick) 69 mg/dL (70-99) 82 mg/dL (70-99) 85 mg/dL (70-99) Hemoglobin 8.8 g/dL (13.0-17.5) Hematocrit 28.1 % (39.0-53.0) Test 06/26/21 09:22 Glucose (Fingerstick) 60 mg/dL (70-99) Results All relevant outside records, renal labs, imaging studies, telemetry/EKG's were reviewed. Justicifation of Admission Dx: Justifications for Admission: Justification of Admission Dx: N/A CHANI DANIELLE MD Jun 26, 2021 10:17
[2021-06-26 11:00] VITALS: BP 92/55
[2021-06-26] MEDS ORDERED: INSULIN GLARGINE SYRINGE. SQ SCH ×2 (11:15→21:00)
--- NOTE | 2021-06-26 11:15 | PDOC ---
Date of Service: DATE: 06/26/21 TIME: 11:12 Subjective: Subjective: Reports loose stools, asks for something for diarrhea. Objective: Objective: D/w staff - odd behavior, hand in his pants a lot. Vital Signs: Vital Signs Date Time Temp Pulse Resp B/P (MAP) Pulse Ox O2 Delivery O2 Flow Rate FiO2 06/26/21 08:57 79 109/65 06/26/21 08:00 Room Air 06/26/21 07:00 98.5 17 94 98.5 06/25/21 07:27 2.0 Labs: Laboratory Tests Test 06/25/21 19:50 06/25/21 22:51 06/26/21 02:48 06/26/21 06:55 Glucose (Fingerstick) 69 mg/dL 82 mg/dL 85 mg/dL Hemoglobin 8.8 g/dL Hematocrit 28.1 % Test 06/26/21 09:22 06/26/21 10:15 Glucose (Fingerstick) 60 mg/dL 89 mg/dL PE: GEN: visual exam - COVID isolation LUNGS: room air HEART: RRR ABD: large/distended - stable NEURO/PSYCH: A & O 3, odd affect A/P: COVID, CHF, CAD, CVA, ESRD, non-compliance ACD, h/o stercoral rectal ulcer, ascites -- Reasonable to hold laxatives, etc. Monitor stooling - really having diarrhea? - check C Diff if so (has been on atbx). Paracentesis as needed. Justicifation of Admission Dx: Justifications for Admission: Justification of Admission Dx: N/A NATASHA MANZO Jun 26, 2021 11:15
[2021-06-26] MEDS ORDERED: DEXTROSE 50% 25 GM / 50ML DISP.SYRIN. IV ONE (11:30)
--- NOTE | 2021-06-26 11:36 | PN ---
DATE: 06/26/2021 SUBJECTIVE: The patient is resting, slightly propped up in bed, in no apparent respiratory distress. His blood sugar continues to be low in the morning, so I cut down his Lantus to 16 units. He continued to have also loose bowel movement and stool was sent for C. diff toxins, the result of which is still pending. PHYSICAL EXAMINATION: GENERAL: When I examined him this morning, he looked pale, but not jaundiced or cyanosed. No thyromegaly. No jugular venous distention. No limb edema. VITAL SIGNS: His heart rate was 79, blood pressure was 109/65, temperature was 98.5, respiratory rate was 17 and oxygen saturation was 94%. HEAD, EYES, EARS, NOSE AND THROAT: Normocephalic, atraumatic. NECK: Supple. HEART: Normal first and second heart sounds. No gallop, rub or murmur. CHEST: Showed central trachea, equal bilateral chest expansion air entry, vesicular breath sounds. No crepitation or rhonchi. ABDOMEN: Marked distended, soft, nontender. NEUROLOGIC: He is awake, alert, responding appropriately. Cranial nerves intact. He moves upper extremities without difficulty. He has left below-knee amputation. He is mostly bedbound. His intake over the last 24 hours was 1200, output was 300. LABORATORY DATA: His blood sugar this morning was 60 before breakfast and has risen to 89. His most recent H and H this morning was 8.8 and 28.1. ASSESSMENT: 1. Life-threatening hyperkalemia, resolved. 2. End-stage renal disease, on hemodialysis Wednesday, Wednesday, Wednesday. 3. Severe anemia, for which he received at least 3 units of packed RBCs. He is now on epoetin malini 10,000 units on Wednesday, Wednesday, Wednesday. 4. Hypertension, for which he is now on midodrine 10 mg 3 times a day. I have discontinued his Coreg and hydralazine. His blood pressure seems to be reasonably controlled. 5. Severe peripheral vascular disease, status post left below-knee amputation. 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 7. The patient has impaired liver enzyme, ascites and required multiple paracenteses. Serum ferritin was extremely high; however, the insulation extruder operator thinks that this is an acute phase reactant response and did not think that this signifies any underlying hemochromatosis. 8. Altered mental status, confusion, diaphoresis together with fever, which I pancultured him and started empirically on Zosyn and vancomycin so far. No blood cultures unfortunately were taken. I discontinued the vancomycin. 9. Recurrent bouts of loose bowel movement, for which I started empirically on vancomycin 125 mg 4 times a day, pending the result of stool for C. diff toxins. 10. I spoke with our heel caser and we plan to hopefully admit him to a long-term facility with in-house hemodialysis unit. If all else fails, he might have to go back to his apartment and there is private contract administrative assistant. CRISTHIAN DR: Nelson TID: [id number]
[2021-06-26] MEDS: VANCOMYCIN 125 MG/2.5 ML ORAL SOLUTION. PO SCH ×3 (13:05→21:50)
--- NOTE | 2021-06-26 13:17 | NUR ---
SW following. Discussed with RN, [facility] declined to take pt. [facility] stated [facility] likely can take pt but need to check on bed availability. Referral has been sent to [facility], awaiting final determination. SW will continue to follow.
[2021-06-26 15:00] VITALS: BP 116/72
--- NOTE | 2021-06-26 15:18 | NUR ---
Wound Care: Attempted to see patient today regarding wound care. Patient is wanting to be left alone at this time, wound care will try again tomorrow as patient is on the bedpan and finishing with PT.
--- NOTE | 2021-06-26 17:04 | PDOC ---
PROGRESS NOTES Date of Service DATE: 06/26/21 TIME: 17:02 Subjective Subjective Patient seen and examined Objective Objective Vital Signs Date Time Temp Pulse Resp B/P (MAP) Pulse Ox O2 Delivery O2 Flow Rate FiO2 06/26/21 15:00 97.9 81 17 116/72 (87) 97 Room Air 97.9 06/25/21 07:27 2.0 Intake and Output 06/26/21 07:00 Intake Total 700 ml Balance 700 ml Intake Oral 700 ml # Bowel Movements 1 Physical Exam Abdomen: Normal bowel sounds Heart: Regular rate General: mild distress Lungs: Other (Mildly decreased breath sounds) Assessment Assessment Severe anemia with possible GI bleed: Mildly improved. Monitoring. NSTEMI: possibly demand mediated with multiple culprits CP free. EF and WM nml per TTE Shock: multifactorial. BP stable and marginal ESRD with severe hyperkalemia: due to missed HD. Followed by the renal service. DM2: per PCP CAD: [facility] records reviewed and noted last [facility] 01/2021 at [facility] but no intervention at that time and has had stent to RCA before. No evidence of recent stent placement Hx of DVT: on home eliquis. Now on hold. Covid-19: denies vaccination Hx of CVA: MRI in 2016 Scattered tiny foci of restricted diffusion in different vascular territories suggesting embolic acute infarcts. HLP: on statin Acute on chronic diastolic CHF: appears compensated PPM in situ: leadless with intermittent V pacing Comment Review of Relevant I have reviewed the following items juan a (where applicable) has been applied. Labs Laboratory Tests Test 06/24/21 20:56 06/25/21 07:10 06/25/21 09:11 06/25/21 09:31 Glucose (Fingerstick) 97 mg/dL (70-99) 67 mg/dL (70-99) 96 mg/dL (70-99) White Blood Count 10.2 x10^3/uL (4.0-11.0) Red Blood Count 3.12 x10^6/uL (4.30-5.70) Hemoglobin 9.0 g/dL (13.0-17.5) Hematocrit 28.3 % (39.0-53.0) Mean Corpuscular Volume 91 fL (79-100) Mean Corpuscular Hemoglobin 29 pg (25-35) Mean Corpuscular Hemoglobin Concent 32 g/dL (31-37) Red Cell Distribution Width 15.9 % (11.5-14.5) Platelet Count 282 x10^3/uL (140-400) Neutrophils (%) (Auto) 77 % (31-73) Lymphocytes (%) (Auto) 7 % (24-48) Monocytes (%) (Auto) 10 % (0-9) Eosinophils (%) (Auto) 5 % (0-3) Basophils (%) (Auto) 1 % (0-3) Neutrophils # (Auto) 7.9 x10^3/uL (1.8-7.7) Lymphocytes # (Auto) 0.8 x10^3/uL (1.0-4.8) Monocytes # (Auto) 1.0 x10^3/uL (0.0-1.1) Eosinophils # (Auto) 0.5 x10^3/uL (0.0-0.7) Basophils # (Auto) 0.1 x10^3/uL (0.0-0.2) Sodium Level 134 mmol/L (136-145) Potassium Level 5.5 mmol/L (3.5-5.1) Chloride Level 99 mmol/L (98-107) Carbon Dioxide Level 24 mmol/L (21-32) Anion Gap 11 (6-14) Blood Urea Nitrogen 38 mg/dL (8-26) Creatinine 7.8 mg/dL (0.7-1.3) Estimated GFR (Cockcroft-Gault) 7.7 BUN/Creatinine Ratio 5 (6-20) Glucose Level 74 mg/dL (70-99) Calcium Level 7.4 mg/dL (8.5-10.1) Total Bilirubin 0.4 mg/dL (0.2-1.0) Aspartate Amino Transf (AST/SGOT) 24 U/L (15-37) Alanine Aminotransferase (ALT/SGPT) 45 U/L (16-63) Alkaline Phosphatase 222 U/L (46-116) Total Protein 4.8 g/dL (6.4-8.2) Albumin 1.3 g/dL (3.4-5.0) Albumin/Globulin Ratio 0.4 (1.0-1.7) Test 06/25/21 19:50 06/25/21 22:51 06/26/21 02:48 06/26/21 06:55 Glucose (Fingerstick) 69 mg/dL (70-99) 82 mg/dL (70-99) 85 mg/dL (70-99) Hemoglobin 8.8 g/dL (13.0-17.5) Hematocrit 28.1 % (39.0-53.0) Test 06/26/21 09:09 06/26/21 09:22 06/26/21 10:15 06/26/21 10:50 Glucose (Fingerstick) 55 mg/dL (70-99) 60 mg/dL (70-99) 89 mg/dL (70-99) Glucose Level 52 mg/dL (70-99) Test 06/26/21 11:51 06/26/21 16:35 Glucose (Fingerstick) 115 mg/dL (70-99) 49 mg/dL (70-99) Laboratory Tests Test 06/25/21 19:50 06/25/21 22:51 06/26/21 02:48 06/26/21 06:55 Glucose (Fingerstick) 69 mg/dL (70-99) 82 mg/dL (70-99) 85 mg/dL (70-99) Hemoglobin 8.8 g/dL (13.0-17.5) Hematocrit 28.1 % (39.0-53.0) Test 06/26/21 09:09 06/26/21 09:22 06/26/21 10:15 06/26/21 10:50 Glucose (Fingerstick) 55 mg/dL (70-99) 60 mg/dL (70-99) 89 mg/dL (70-99) Glucose Level 52 mg/dL (70-99) Test 06/26/21 11:51 06/26/21 16:35 Glucose (Fingerstick) 115 mg/dL (70-99) 49 mg/dL (70-99) Medications Current Medications Sodium Chloride 1,000 ml @ 1,000 mls/hr Q1H PRN IV hypotension; Start 06/15/21 at 19:15; Stop 06/16/21 at 01:14; Status DC Albumin Human 200 ml @ 200 mls/hr 1X PRN PRN IV Hypotension Last administered on 06/15/21at 19:05; Start 06/15/21 at 19:15; Stop 06/16/21 at 01:14; Status DC Sodium Chloride 1,000 ml @ 400 mls/hr Q2H30M PRN IV PATENCY; Start 06/15/21 at 19:15; Stop 06/16/21 at 07:14; Status DC Info (PHARMACY MONITORING -- do not chart) 1 each PRN DAILY PRN MC SEE COMMENTS; Start 06/15/21 at 19:15; Status Cancel Info (PHARMACY MONITORING -- do not chart) 1 each PRN DAILY PRN MC SEE COMMENTS; Start 06/15/21 at 19:15; Status Cancel Insulin Human Lispro (HumaLOG) 0-7 UNITS TIDWMEALS SQ Last administered on 06/22/21at 17:42; Start 06/16/21 at 08:00 Dextrose (Dextrose 50%-Water Syringe) 12.5 gm PRN Q15MIN PRN IV SEE COMMENTS; Start 06/15/21 at 20:45 Aspirin (Ecotrin) 81 mg DAILY PO Last administered on 06/17/21at 10:58; Start 06/16/21 at 09:00; Stop 06/17/21 at 11:35; Status DC Atorvastatin Calcium (Lipitor) 40 mg QHS PO Last administered on 06/18/21at 21:00; Start 06/15/21 at 23:00; Stop 06/19/21 at 14:04; Status DC Clonidine HCl (Catapres) 0.1 mg PRN Q8HRS PRN PO HTN; Start 06/15/21 at 22:30 Clopidogrel Bisulfate (Plavix) 75 mg DAILY PO Last administered on 06/17/21at 10:56; Start 06/16/21 at 09:00; Stop 06/17/21 at 11:35; Status DC Furosemide (Lasix) 80 mg DAILY PO Last administered on 06/16/21at 09:00; Start 06/16/21 at 09:00; Stop 06/18/21 at 10:28; Status DC Gabapentin (Neurontin) 300 mg QHS PO Last administered on 06/25/21at 22:24; Start 06/15/21 at 23:00 Hydroxyzine HCl (Atarax) 25 mg PRN Q6HRS PRN PO ALLERGIES; Start 06/15/21 at 22:30 Pantoprazole Sodium (Protonix) 40 mg DAILYAC PO Last administered on 06/26/21at 08:57; Start 06/16/21 at 07:30 Quetiapine Fumarate (SEROquel) 25 mg DAILY PO Last administered on 06/26/21at 08:57; Start 06/16/21 at 09:00 Calcium Acetate (Phoslo) 667 mg TIDWMEALS PO Last administered on 06/26/21at 11:51; Start 06/16/21 at 08:00 Carvedilol (Coreg) 50 mg BIDWMEALS PO Last administered on 06/16/21at 18:18; Start 06/16/21 at 08:00; Stop 06/18/21 at 10:28; Status DC Hydralazine HCl (Apresoline) 100 mg BID PO ; Start 06/15/21 at 23:00; Stop 06/18/21 at 10:28; Status DC Insulin Glargine (Lantus Syringe) 32 unit QHS SQ Last administered on 06/25/21at 21:00; Start 06/15/21 at 23:00; Stop 06/26/21 at 11:13; Status DC Oxycodone HCl (Roxicodone) 5 mg PRN Q4HRS PRN PO SEVERE PAIN 7-10 Last administered on 06/18/21at 14:23; Start 06/15/21 at 22:45; Stop 06/18/21 at 16:20; Status DC Sertraline HCl (Zoloft) 100 mg DAILY PO Last administered on 06/26/21at 08:57; Start 06/16/21 at 09:00 Non-Formulary Medication (Sucroferric Oxyhydroxide (Velphoro)) 1 tab TID PO ; Start 06/16/21 at 09:00; Stop 06/17/21 at 11:17; Status DC Vitamin B Complex/ Vitamin C (Yajaira-Allan) 1 tab DAILY PO Last administered on 06/26/21at 08:57; Start 06/16/21 at 09:00 Sodium Chloride 1,000 ml @ 1,000 mls/hr Q1H PRN IV hypotension; Start 06/16/21 at 07:00; Stop 06/16/21 at 12:59; Status DC Sodium Chloride 1,000 ml @ 400 mls/hr Q2H30M PRN IV PATENCY; Start 06/16/21 at 07:00; Stop 06/16/21 at 18:59; Status DC Info (PHARMACY MONITORING -- do not chart) 1 each PRN DAILY PRN MC SEE COMMENTS; Start 06/16/21 at 07:00; Status Cancel Info (PHARMACY MONITORING -- do not chart) 1 each PRN DAILY PRN MC SEE COMMENTS; Start 06/16/21 at 07:00; Status Cancel Midodrine (Proamatine) 5 mg [id number] PO Last administered on 06/18/21at 12:44; Start 06/17/21 at 13:45; Stop 06/18/21 at 15:13; Status DC Diphenhydramine HCl (Benadryl) 25 mg PRN 1X PRN PO PRE-TRANSFUSION Last administered on 06/18/21at 12:43; Start 06/17/21 at 14:30; Stop 06/18/21 at 14:29; Status DC Norepinephrine Bitartrate 8 mg/ Dextrose 258 ml @ 25.445 mls/ hr CONT PRN IV PER PROTOCOL Last administered on 06/18/21at 11:05; Start 06/18/21 at 10:45; Stop 06/19/21 at 13:47; Status DC Aspirin (Ecotrin) 81 mg [id number] PO Last administered on 06/26/21at 08:56; Start 06/19/21 at 08:00 Ondansetron HCl (Zofran) 4 mg PRN Q4HRS PRN IVP NAUSEA/VOMITING Last administered on 06/26/21at 06:21; Start 06/18/21 at 13:30 Sodium Chloride 1,000 ml @ 1,000 mls/hr Q1H PRN IV hypotension; Start 06/18/21 at 13:45; Stop 06/18/21 at 19:44; Status DC Sodium Chloride 1,000 ml @ 400 mls/hr Q2H30M PRN IV PATENCY; Start 06/18/21 at 13:45; Stop 06/19/21 at 01:44; Status DC Info (PHARMACY MONITORING -- do not chart) 1 each PRN DAILY PRN MC SEE COMMENTS; Start 06/18/21 at 13:45; Status Cancel Albumin Human 200 ml @ 200 mls/hr 1X PRN PRN IV Hypotension Last administered on 06/18/21at 17:29; Start 06/18/21 at 13:45; Stop 06/18/21 at 19:44; Status DC Docusate Sodium (Colace) 100 mg BID PO Last administered on 06/23/21at 21:31; Start 06/18/21 at 14:15 Polyethylene Glycol (miraLAX PACKET) 17 gm DAILY PO Last administered on 06/22/21at 12:22; Start 06/18/21 at 14:15 Bisacodyl (Dulcolax Supp) 10 mg PRN DAILY PRN AR CONSTIPATION; Start 06/18/21 at 14:15 Midodrine (Proamatine) 7.5 mg [id number] PO ; Start 06/19/21 at 07:00; Stop 06/18/21 at 15:21; Status DC Midodrine (Proamatine) 10 mg 1X ONCE PO ; Start 06/18/21 at 15:15; Stop 06/18/21 at 15:21; Status DC Midodrine (Proamatine) 10 mg [id number] PO Last administered on 06/26/21at 13:04; Start 06/19/21 at 07:00 Midodrine (Proamatine) 5 mg 1X ONCE PO Last administered on 06/18/21at 17:00; Start 06/18/21 at 15:30; Stop 06/18/21 at 15:31; Status DC Oxycodone HCl (Roxicodone) 10 mg PRN Q4HRS PRN PO SEVERE PAIN 7-10 Last administered on 06/26/21at 06:20; Start 06/18/21 at 16:15 Lidocaine HCl (Xylocaine 2% Topical 30gm Tube) 1 daljit PRN TID PRN TP PAIN Last administered on 06/20/21at 03:42; Start 06/18/21 at 16:15 Sodium Chloride 1,000 ml @ 1,000 mls/hr Q1H PRN IV hypotension; Start 06/20/21 at 08:30; Stop 06/20/21 at 14:29; Status DC Albumin Human 200 ml @ 200 mls/hr 1X PRN PRN IV Hypotension Last administered on 06/20/21at 10:30; Start 06/20/21 at 08:30; Stop 06/20/21 at 14:29; Status DC Sodium Chloride 1,000 ml @ 400 mls/hr Q2H30M PRN IV PATENCY; Start 06/20/21 at 08:30; Stop 06/20/21 at 20:29; Status DC Info (PHARMACY MONITORING -- do not chart) 1 each PRN DAILY PRN MC SEE COMMENTS; Start 06/20/21 at 08:30; Status UNV Info (PHARMACY MONITORING -- do not chart) 1 each PRN DAILY PRN MC SEE COMMENTS; Start 06/20/21 at 08:30; Status Cancel Epoetin Kory-epbx (RETACRIT for ESRD PTS) 10,000 unit MoWeFr@2100 SQ Last administered on 06/25/21at 22:23; Start 06/20/21 at 21:00 Piperacillin Sod/ Tazobactam Sod 2.25 gm/Sodium Chloride 50 ml @ 100 mls/hr Q8HRS IV Last administered on 06/26/21at 13:06; Start 06/22/21 at 13:00; Stop 06/26/21 at 14:40; Status DC Vancomycin HCl (Vanco Per Pharmacy) 1 each PRN DAILY PRN MC SEE COMMENTS Last administered on 06/24/21at 09:40; Start 06/22/21 at 11:30; Stop 06/25/21 at 11:18; Status DC Vancomycin HCl 2 gm/Sodium Chloride 500 ml @ 250 mls/hr 1X ONCE IV Last administered on 06/22/21at 14:31; Start 06/22/21 at 13:00; Stop 06/22/21 at 14:59; Status DC Vancomycin HCl (Vancomycin Random Level) 1 each 1X ONCE MC Last administered on 06/24/21at 07:25; Start 06/24/21 at 06:00; Stop 06/24/21 at 06:01; Status DC Lactobacillus Rhamnosus (Culturelle) 1 cap BID PO Last administered on 06/26/21at 08:56; Start 06/23/21 at 21:00 Perflutren Protein Type A Microsphe (Optison) 0.66 mg STK-MED ONCE IV ; Start 06/19/21 at 08:00; Stop 06/23/21 at 13:24; Status DC Info (PHARMACY MONITORING -- do not chart) 1 each PRN DAILY PRN MC SEE COMMENTS; Start 06/23/21 at 14:15; Stop 06/25/21 at 16:22; Status DC Vancomycin HCl 500 mg/Sodium Chloride 100 ml @ 100 mls/hr QMWF IV ; Start 06/25/21 at 16:00; Stop 06/25/21 at 11:16; Status DC Perflutren Protein Type A Microsphe (Optison) 0.66 mg STK-MED ONCE IV ; Start 06/19/21 at 07:23; Stop 06/24/21 at 12:47; Status DC Sodium Chloride 1,000 ml @ 1,000 mls/hr Q1H PRN IV hypotension; Start 06/25/21 at 07:45; Stop 06/25/21 at 13:44; Status DC Sodium Chloride 1,000 ml @ 400 mls/hr Q2H30M PRN IV PATENCY; Start 06/25/21 at 07:45; Stop 06/25/21 at 19:44; Status DC Info (PHARMACY MONITORING -- do not chart) 1 each PRN DAILY PRN MC SEE COMMENTS; Start 06/25/21 at 07:45; Status UNV Info (PHARMACY MONITORING -- do not chart) 1 each PRN DAILY PRN MC SEE COMMENTS; Start 06/25/21 at 07:45 Clopidogrel Bisulfate (Plavix) 75 mg DAILYWBKFT PO Last administered on 06/26/21at 08:56; Start 06/26/21 at 08:00 Insulin Glargine (Lantus Syringe) 16 unit QHS SQ ; Start 06/26/21 at 11:15; Stop 06/26/21 at 11:15; Status DC Vancomycin HCl (Vancomycin Oral Solution) 125 mg [id number] PO Last administered on 06/26/21at 13:05; Start 06/26/21 at 13:00 Insulin Glargine (Lantus Syringe) 16 unit QHS SQ ; Start 06/26/21 at 21:00 Dextrose (Dextrose 50%-Water Syringe) 25 gm 1X ONCE IV Last administered on 06/26/21at 11:41; Start 06/26/21 at 11:30; Stop 06/26/21 at 11:31; Status DC Amoxicillin/ Clavulanate Potassium (Augmentin 875/ 125mg) 1 tab Q24H PO ; Start 06/27/21 at 18:00; Stop 06/29/21 at 18:01 Active Scripts Active Reported Calcium Acetate 667 Mg Tablet 1 Tab PO TID 30 Days Zoloft (Sertraline Hcl) 100 Mg Tablet 1 Tab PO DAILY Velphoro (Sucroferric Oxyhydroxide) 500 Mg Tab.chew 1 Tab PO TID 30 Days Seroquel (Quetiapine Fumarate) 25 Mg Tablet 1 Tab PO DAILY Yajaira-Allan Rx Tablet (Vit B Cmplx 3/Fa/Vit C/Biotin) 1 Each Tablet 1 Tab PO DAILY 30 Days Clopidogrel (Clopidogrel Bisulfate) 75 Mg Tablet 1 Tab PO DAILY Pantoprazole Sodium 40 Mg Tablet. 40 Mg PO DAILY Oxycodone Hcl 5 Mg Capsule 5 Mg PO PRN Q4HRS PRN Lantus Solostar (Insulin Glargine,Hum.rec.anlog) 100 Unit/1 Ml Insuln.pen 32 Unit SQ QHS Hydroxyzine Hcl 25 Mg Tablet 1 Tab PO PRN Q6HRS PRN Hydralazine Hcl 100 Mg Tablet 1 Tab PO BID Gabapentin (Gabapentin) 300 Mg Capsule 300 Mg PO TID Furosemide 80 Mg Tablet 1 Tab PO DAILY Clonidine Hcl 0.1 Mg Tablet 0.1 Mg PO PRN Q8HRS PRN Carvedilol 25 Mg Tablet 50 Mg PO BIDWMEALS Atorvastatin Calcium 40 Mg Tablet 1 Tab PO QHS Aspirin Ec (Aspirin) 81 Mg Tablet. 1 Tab PO DAILY Vitals/I & O Vital Sign - Last 24 Hours 06/25/21 06/25/21 06/25/21 06/26/21 19:00 19:30 23:08 03:16 Temp 97.8 98.6 98.1 97.8 98.6 98.1 Pulse 78 79 75 Resp 18 18 18 B/P (MAP) 131/67 (88) 130/74 (92) 131/59 (83) Pulse Ox 94 94 96 O2 Delivery Room Air Room Air Room Air Room Air 06/26/21 06/26/21 06/26/21 06/26/21 06:20 07:00 08:00 08:57 Temp 98.5 98.5 Pulse 79 79 Resp 17 B/P (MAP) 109/65 (80) 109/65 Pulse Ox 96 94 O2 Delivery Room Air Room Air Room Air 06/26/21 06/26/21 06/26/21 11:00 13:04 15:00 Temp 98.4 97.9 98.4 97.9 Pulse 79 79 81 Resp 17 17 B/P (MAP) 92/55 (67) 92/55 116/72 (87) Pulse Ox 94 97 O2 Delivery Room Air Room Air Intake and Output 06/25/21 06/25/21 06/26/21 15:00 23:00 07:00 Intake Total 120 ml 100 ml 480 ml Balance 120 ml 100 ml 480 ml Justifications for Admission Other Justification TJ PRESTON MD Jun 26, 2021 17:04
[2021-06-26] MEDS ORDERED: IV DEXTROSE 10% 500 ML IV PRN (18:30)
[2021-06-26 19:00] VITALS: BP 149/65
[2021-06-26] MEDS: GABAPENTIN 300 MG CAPSULE. PO SCH (21:50)
[2021-06-26 23:19] VITALS: BP 107/61
[2021-06-27] MEDS: oxyCODONE IR 5 MG TABLET PO PRN (02:53)
[2021-06-27 03:34] VITALS: BP 114/69
[2021-06-27] MEDS: MIDODRINE 5 MG TABLET PO SCH ×3 (06:08→18:13)
[2021-06-27 07:00] VITALS: BP 110/65
[2021-06-27] MEDS: FOLIC/VIT B COMP W-C (RENAL) TABLET. PO SCH (07:42)
[2021-06-27] MEDS: LACTOBACILLUS RHAMNOSUS GG 1 CAPSULE. PO SCH ×2 (07:42→21:47)
[2021-06-27] MEDS: CALCIUM ACETATE 667 MG CAPSULE PO SCH ×3 (07:42→18:11)
[2021-06-27] MEDS: VANCOMYCIN 125 MG/2.5 ML ORAL SOLUTION. PO SCH ×4 (07:42→21:47)
[2021-06-27] MEDS ORDERED: IV NORMAL SALINE 1000ML BAG 1,000 ML IV PRN (07:45)
[2021-06-27] MEDS ORDERED: DIALYSIS PATIENT. MC PRN ×2 (07:45)
[2021-06-27] MEDS ORDERED: 0.9 % SODIUM CHLORIDE 10 ML DISP.SYRIN. IV PRN ×2 (07:45)
[2021-06-27] MEDS: PANTOPRAZOLE 40 MG TABLET.DR. PO SCH (07:52)
[2021-06-27] MEDS: INSULIN LISPRO 300 UNITS/3 ML VIAL. SQ SCH ×3 (07:53→17:00)
--- NOTE | 2021-06-27 08:22 | NUR ---
Patient to dialysis per bed, report has been given to dialysis nurse. D10 infusing at 20ml/hr
[2021-06-27 09:22] LABS: CALCIUM 7.3 mg/dL (8.5-10.1); CREATININE 6.7 mg/dL (0.7-1.3); GFR 9.2; POTASSIUM 4.6 mmol/L (3.5-5.1)
--- NOTE | 2021-06-27 09:57 | PDOC ---
DATE OF SERVICE DATE: 06/27/21 TIME: 09:55 SUBJECTIVE ROS Stable , No complaints on dialysis OBJECTIVE Vital Signs Vital Signs Date Time Temp Pulse Resp B/P (MAP) Pulse Ox O2 Delivery O2 Flow Rate FiO2 06/27/21 08:00 Room Air 06/27/21 07:00 97.8 78 18 110/65 (80) 97 97.8 I & 0 Intake and Output 06/27/21 07:00 Intake Total 720 ml Balance 720 ml Intake Oral 720 ml # Bowel Movements 5 PHYSICAL EXAM Physical Exam GENERAL: NAD, HEEN OM moist NECK: Supple. HEART: S1S2, SR with LBBB LUNGS: Clear to auscultation,decreased at bases Non labored ABDOMEN: soft, nontender.Obese NEUROLOGIC: awake, alert,Grossly normal No Rodriguez DERM No Rash DIAGNOSIS/ASSESSMENT Assessment & Plan ESRD- On HD MWF. He has been on Dialysis since 2017. Seen during treatment, tolerating well. Continue as ordered. [facility] Antonio CANO OP unit LE [facility]- Under Dr Godoy's care( [facility]) , per Nursing staff- chronic non compliance with treatments HyperKalemia life threatening POA - Dialyzed emergently . Anemia- s/p PRBC .Stable Ferritin elevated Continue MINDY NSTEMI: Per cardiology CAD: reported 2 stents placed about a month ago at [facility] Hx of DVT: on home eliquis Covid-19: Not Vaccinated Hx of CVA: MRI in 2016 Scattered tiny foci of restricted diffusion in different vascular territories suggesting embolic acute infarcts. Hx of Hypertension- low BP's since 06/17 , BP improved , Increased Midodrine to 10 mg TID Poorly controlled type 2 diabetes mellitus, diabetic retinopathy. Hypoglycemia- currently Dextrose gtt per primary Ascites and nonalcoholic steatohepatitis - Per [facility] staff he is supposed to be on scheduled paracentesis , non compliant Peritoneal nodularities and greater omental fat induration --can be seen in peritoneal carcinomatosis. Radiology Recommend diagnostic paracentesis cytology. Similar multiple prominent to mildly enlarged upper abdominal, retroperitoneal and bilateral pelvic lymph node indeterminate. Defer to Primary COMMENT/RELEVANT DATA Meds Current Medications Medications (Trade) Dose Ordered Sig/Damien Start Time Stop Time Status Last Admin Dose Admin Albumin Human 200 ml @ 200 mls/hr 1X PRN PRN 06/20/21 08:30 06/20/21 14:29 DC 06/20/21 10:30 200 MLS/HR Amoxicillin/ Clavulanate Potassium (Augmentin 875/ 125mg) 1 tab Q24H 06/27/21 18:00 06/29/21 18:01 Aspirin (Ecotrin) 81 mg DAILYWBKFT 06/19/21 08:00 06/26/21 08:56 81 MG Atorvastatin Calcium (Lipitor) 40 mg QHS 06/15/21 23:00 06/19/21 14:04 DC 06/18/21 21:00 40 MG Bisacodyl (Dulcolax Supp) 10 mg PRN DAILY PRN 06/18/21 14:15 Calcium Acetate (Phoslo) 667 mg TIDWMEALS 06/16/21 08:00 06/27/21 07:42 667 MG Carvedilol (Coreg) 50 mg BIDWMEALS 06/16/21 08:00 06/18/21 10:28 DC 06/16/21 18:18 50 MG Clonidine HCl (Catapres) 0.1 mg PRN Q8HRS PRN 06/15/21 22:30 Clopidogrel Bisulfate (Plavix) 75 mg DAILYWBKFT 06/26/21 08:00 06/26/21 08:56 75 MG Dextrose 500 ml @ 30 mls/hr CONT PRN 06/26/21 18:30 06/26/21 17:30 30 MLS/HR Dextrose (Dextrose 50%-Water Syringe) 25 gm 1X ONCE 06/26/21 11:30 06/26/21 11:31 DC 06/26/21 11:41 25 GM Diphenhydramine HCl (Benadryl) 25 mg PRN 1X PRN 06/17/21 14:30 06/18/21 14:29 DC 06/18/21 12:43 25 MG Docusate Sodium (Colace) 100 mg BID 06/18/21 14:15 06/23/21 21:31 100 MG Epoetin Kory-epbx (RETACRIT for ESRD PTS) 10,000 unit MoWeFr@2100 06/20/21 21:00 06/25/21 22:23 10,000 UNIT Furosemide (Lasix) 80 mg DAILY 06/16/21 09:00 06/18/21 10:28 DC 06/16/21 09:00 80 MG Gabapentin (Neurontin) 300 mg QHS 06/15/21 23:00 06/26/21 21:50 300 MG Hydralazine HCl (Apresoline) 100 mg BID 06/15/21 23:00 06/18/21 10:28 DC Hydroxyzine HCl (Atarax) 25 mg PRN Q6HRS PRN 06/15/21 22:30 Info (PHARMACY MONITORING -- do not chart) 1 each PRN DAILY PRN 06/27/21 07:45 Insulin Glargine (Lantus Syringe) 16 unit QHS 06/26/21 21:00 06/26/21 18:28 DC Insulin Human Lispro (HumaLOG) 0-7 UNITS TIDWMEALS 06/16/21 08:00 06/22/21 17:42 3 UNITS Lactobacillus Rhamnosus (Culturelle) 1 cap BID 06/23/21 21:00 06/27/21 07:42 1 CAP Lidocaine HCl (Xylocaine 2% Topical 30gm Tube) 1 daljit PRN TID PRN 06/18/21 16:15 06/20/21 03:42 1 DALJIT Midodrine (Proamatine) 5 mg 1X ONCE 06/18/21 15:30 06/18/21 15:31 DC 06/18/21 17:00 5 MG Non-Formulary Medication (Sucroferric Oxyhydroxide (Velphoro)) 1 tab TID 06/16/21 09:00 06/17/21 11:17 DC Norepinephrine Bitartrate 8 mg/ Dextrose 258 ml @ 25.445 mls/ hr CONT PRN 06/18/21 10:45 06/19/21 13:47 DC 06/18/21 11:05 25.445 MLS/HR Ondansetron HCl (Zofran) 4 mg PRN Q4HRS PRN 06/18/21 13:30 06/26/21 18:45 4 MG Oxycodone HCl (Roxicodone) 10 mg PRN Q4HRS PRN 06/18/21 16:15 06/27/21 02:53 10 MG Pantoprazole Sodium (Protonix) 40 mg DAILYAC 06/16/21 07:30 06/27/21 07:52 40 MG Perflutren Protein Type A Microsphe (Optison) 0.66 mg STK-MED ONCE 06/19/21 07:23 06/24/21 12:47 DC Piperacillin Sod/ Tazobactam Sod 2.25 gm/Sodium Chloride 50 ml @ 100 mls/hr Q8HRS 06/22/21 13:00 06/26/21 14:40 DC 06/26/21 13:06 100 MLS/HR Polyethylene Glycol (miraLAX PACKET) 17 gm DAILY 06/18/21 14:15 06/22/21 12:22 17 GM Quetiapine Fumarate (SEROquel) 25 mg DAILY 06/16/21 09:00 06/26/21 08:57 25 MG Sertraline HCl (Zoloft) 100 mg DAILY 06/16/21 09:00 06/26/21 08:57 100 MG Sodium Chloride (Normal Saline Flush) 10 ml 1X PRN PRN 06/27/21 07:45 06/28/21 07:44 Vancomycin HCl (Vanco Per Pharmacy) 1 each PRN DAILY PRN 06/22/21 11:30 06/25/21 11:18 DC 06/24/21 09:40 1 EACH Vancomycin HCl (Vancomycin Random Level) 1 each 1X ONCE 06/24/21 06:00 06/24/21 06:01 DC 06/24/21 07:25 1 EACH Vancomycin HCl (Vancomycin Oral Solution) 125 mg [id number] 06/26/21 13:00 06/27/21 07:42 125 MG Vancomycin HCl 500 mg/Sodium Chloride 100 ml @ 100 mls/hr QMWF 06/25/21 16:00 06/25/21 11:16 DC Vancomycin HCl 2 gm/Sodium Chloride 500 ml @ 250 mls/hr 1X ONCE 06/22/21 13:00 06/22/21 14:59 DC 06/22/21 14:31 250 MLS/HR Vitamin B Complex/ Vitamin C (Yajaira-Allan) 1 tab DAILY 06/16/21 09:00 06/27/21 07:42 1 TAB Lab Laboratory Tests Test 06/26/21 10:15 06/26/21 10:50 06/26/21 11:51 06/26/21 16:35 Glucose (Fingerstick) 89 mg/dL (70-99) 115 mg/dL (70-99) 49 mg/dL (70-99) Glucose Level 52 mg/dL (70-99) Test 06/26/21 18:09 06/26/21 19:09 06/26/21 21:07 06/26/21 22:59 Glucose (Fingerstick) 96 mg/dL (70-99) 85 mg/dL (70-99) 112 mg/dL (70-99) 136 mg/dL (70-99) Test 06/27/21 01:02 06/27/21 02:59 06/27/21 05:07 06/27/21 07:48 Glucose (Fingerstick) 138 mg/dL (70-99) 140 mg/dL (70-99) 128 mg/dL (70-99) 122 mg/dL (70-99) Test 06/27/21 08:33 Sodium Level 134 mmol/L (136-145) Potassium Level 4.6 mmol/L (3.5-5.1) Chloride Level 99 mmol/L (98-107) Carbon Dioxide Level 27 mmol/L (21-32) Anion Gap 8 (6-14) Blood Urea Nitrogen 28 mg/dL (8-26) Creatinine 6.7 mg/dL (0.7-1.3) Estimated GFR (Cockcroft-Gault) 9.2 Glucose Level 126 mg/dL (70-99) Calcium Level 7.3 mg/dL (8.5-10.1) Results All relevant outside records, renal labs, imaging studies, telemetry/EKG's were reviewed. Justicifation of Admission Dx: Justifications for Admission: Justification of Admission Dx: N/A CHANI DANIELLE MD Jun 27, 2021 09:57
--- NOTE | 2021-06-27 10:03 | PN ---
DATE: 06/27/2021 SUBJECTIVE: The patient is resting almost flat in bed, having his scheduled hemodialysis. He has prolonged hypoglycemia. He continues to be on D10 at 20 mL per hour. We did not give him any his Lantus insulin yesterday. His antibiotics were switched to oral Augmentin. His H and H is stable at 8.8 and 28. His diarrhea is subsiding. PHYSICAL EXAMINATION: GENERAL: When I examined him this morning, he looked pale, not jaundiced, cyanosed, no lymphadenopathy, no thyromegaly, no jugular venous distention. No lower limb edema. VITAL SIGNS: His heart rate was 82, blood pressure is 114/69, temperature was 98.4, respiratory rate was 18 and oxygen saturation was 98%. HEAD, EYES, EARS, NOSE, AND THROAT: Normocephalic, atraumatic. NECK: Supple. HEART: Showed normal first and second heart sounds. No gallop or murmur. CHEST: Clear to auscultation. No crepitation or rhonchi. ABDOMEN: Marked distended, soft, nontender. NEUROLOGIC: He was awake, alert, responding appropriately. All cranial nerves intact. He moves upper extremities without difficulty. He has left below-knee amputation. LABORATORY DATA: His H and H was 8.8 and 28.1. His chemistry is variable as hemodialysis dependent. ASSESSMENT: 1. Life-threatening hyperkalemia, resolved. 2. End-stage renal disease, on hemodialysis Wednesday, Wednesday, Wednesday. 3. Severe anemia for which he has received at least 3 units of packed RBCs. He is now on epoetin malini 10,000 units subcutaneous Wednesday, Wednesday, Wednesday. His H and H is stable around 9 and 28. 4. Hypotension, for which he is now on midodrine 10 mg 3 times a day. I have discontinued his Coreg and hydralazine. His blood pressure seems to be reasonably controlled. 5. Severe peripheral vascular disease, status post left below-knee amputation. 6. 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 7. The patient has impaired, elevated liver enzymes, ascites and required multiple paracenteses; however, his hepatitis serology were all negative. Serum ferritin was extremely high; however, according to the director of math, this is an acute phase reactant. 8. Altered mental status, confusion, diaphoresis together with fevers for which I had bejarano cultured him and started empirically on Zosyn and vancomycin so far, he has been afebrile and I discontinued his vancomycin and Zosyn. He is now on oral Augmentin as the pharmacy recommendation. 9. Recurrent bouts of loose bowel movement, which I started him empirically on vancomycin 125 mg 4 times a day, pending the result of stool for C. diff. 10. I spoke with our showcase maker. PLAN: We will plan to hopefully admit him to a shelter facility; however, so far no skilled facility has accepted him. FERNIE DR: Nelson TID: [id number]
--- NOTE | 2021-06-27 10:11 | PDOC ---
Date of Service: DATE: 06/27/21 TIME: 10:07 Objective: Objective: 5 stools charted. Vital Signs: Vital Signs Date Time Temp Pulse Resp B/P (MAP) Pulse Ox O2 Delivery O2 Flow Rate FiO2 06/27/21 08:00 Room Air 06/27/21 07:00 97.8 78 18 110/65 (80) 97 97.8 Labs: Laboratory Tests Test 06/26/21 10:15 06/26/21 10:50 06/26/21 11:51 06/26/21 16:35 Glucose (Fingerstick) 89 mg/dL 115 mg/dL 49 mg/dL Glucose Level 52 mg/dL Test 06/26/21 18:09 06/26/21 19:09 06/26/21 21:07 06/26/21 22:59 Glucose (Fingerstick) 96 mg/dL 85 mg/dL 112 mg/dL 136 mg/dL Test 06/27/21 01:02 06/27/21 02:59 06/27/21 05:07 06/27/21 07:48 Glucose (Fingerstick) 138 mg/dL 140 mg/dL 128 mg/dL 122 mg/dL Test 06/27/21 08:33 Sodium Level 134 mmol/L Potassium Level 4.6 mmol/L Chloride Level 99 mmol/L Carbon Dioxide Level 27 mmol/L Anion Gap 8 Blood Urea Nitrogen 28 mg/dL Creatinine 6.7 mg/dL Estimated GFR (Cockcroft-Gault) 9.2 Glucose Level 126 mg/dL Calcium Level 7.3 mg/dL PE: GEN: dialyzing LUNGS: room air HEART: RRR ABD: large/stable NEURO/PSYCH: resting, not disturbed A/P: COVID, CHF, CAD, CVA, ESRD ACD, h/o stercoral rectal ulcer, ascites w/ h/o paracentesis H/o non-compliance -- More diarrhea? Check C Diff. Paracentesis PRN. Justicifation of Admission Dx: Justifications for Admission: Justification of Admission Dx: N/A NATASHA MANZO Jun 27, 2021 10:11
[2021-06-27] MEDS ORDERED: POLYETHYLENE GLYCOL 3350 17 GM PACKET. PO PRN (10:15)
[2021-06-27 11:00] VITALS: BP 119/68
--- NOTE | 2021-06-27 12:25 | NUR ---
Wound/Ostomy Care Wound Type/Assessment: Wound care ollow up for wound to penis. Pt has sechar and slough covered wound to distal tip of penis that was diagnosed at as calciphylaxis. Pt also has multiple indurated areas to bilateral inner thighs that are also calcium deposits. Pt states he has gotten the recommended treatment for calciphylaxis prior to coming here. Wound cleansed, assesed, and measured. Treatment Recommendations/Plan: Cleanse area with warm wash cloth, apply lidocaine jelly and medihoney gel, repeat daily. Coccyx/intergluteal cleft is reddened with some irritation from stool and moisture but is not open and remains blanchable apply calazime as needed. Both honey and calazime applied and patient tolerated. Patient requesting pain medication and RN notified. Education provided: WC POC and PU prevention Offloading surface/device: self turn Recommended Referrals/Tests: follow up with urology after dc Discharge Recommendations for dressings: Recommend Santyl ointment daily after discharge to be prescribed by PCP. Bed lowered and call light in reach. Wound care will follow up on 07/04/21.
[2021-06-27] MEDS: SERTRALINE 50 MG TABLET. PO SCH (12:48)
[2021-06-27] MEDS: QUEtiapine 25 MG TABLET. PO SCH (12:48)
[2021-06-27] MEDS: ASPIRIN ENTERIC COATED 81 MG TABLET.DR. PO SCH (12:49)
[2021-06-27] MEDS: CLOPIDOGREL BISULFATE 75 MG TABLET PO SCH (12:49)
--- NOTE | 2021-06-27 13:52 | NUR ---
KIM following. Discussed with RN, [facility] does not have a bed for pt at this time. Pt is on the do not readmit list for [facility]. Referral faxed to [facility]. KIM will continue to follow. Addendum: 06/27/21 at 1555 by ANGELO ALVAREZ [place] are out of network with pt's insurance. Pt accepted with [facility] (ph: [phone], fax: [phone]). Dr. Burkett notified. Pt is a high risk readmission due to non compliance.
[2021-06-27 15:00] VITALS: BP 93/50
--- NOTE | 2021-06-27 16:19 | PDOC ---
PROGRESS NOTES Date of Service DATE: 06/27/21 TIME: 16:17 Subjective Subjective Patient seen and examined Objective Objective Vital Signs Date Time Temp Pulse Resp B/P (MAP) Pulse Ox O2 Delivery O2 Flow Rate FiO2 06/27/21 15:00 97.7 80 17 93/50 (64) 94 Room Air 97.7 06/25/21 07:27 2.0 Intake and Output 06/27/21 07:00 Intake Total 720 ml Balance 720 ml Intake Oral 720 ml # Bowel Movements 5 Physical Exam Abdomen: Normal bowel sounds Heart: Regular rate General: mild distress Lungs: Other (Mildly decreased breath sounds) Assessment Assessment Severe anemia with possible GI bleed: Mildly improved. Morning H&H of 8.8 and 28.1. NSTEMI: possibly demand mediated with multiple culprits CP free. EF and WM nml per TTE Shock: multifactorial. BP stable and marginal ESRD with severe hyperkalemia: due to missed HD. Followed by the renal service. Morning potassium 4.6, creatinine of 6.7. DM2: per PCP CAD: [facility] records reviewed and noted last C 01/2021 at [facility] but no intervention at that time and has had stent to RCA before. No evidence of recent stent placement Hx of DVT: on home eliquis. Now on hold. Covid-19: denies vaccination Hx of CVA: MRI in 2016 Scattered tiny foci of restricted diffusion in different vascular territories suggesting embolic acute infarcts. HLP: on statin Acute on chronic diastolic CHF: appears compensated PPM in situ: leadless with intermittent V pacing Comment Review of Relevant I have reviewed the following items juan a (where applicable) has been applied. Labs Laboratory Tests Test 06/25/21 19:50 06/25/21 22:51 06/26/21 02:48 06/26/21 06:55 Glucose (Fingerstick) 69 mg/dL (70-99) 82 mg/dL (70-99) 85 mg/dL (70-99) Hemoglobin 8.8 g/dL (13.0-17.5) Hematocrit 28.1 % (39.0-53.0) Test 06/26/21 08:22 06/26/21 09:09 06/26/21 09:22 06/26/21 10:15 Glucose (Fingerstick) 64 mg/dL (70-99) 55 mg/dL (70-99) 60 mg/dL (70-99) 89 mg/dL (70-99) Test 06/26/21 10:50 06/26/21 11:51 06/26/21 16:35 06/26/21 18:09 Glucose Level 52 mg/dL (70-99) Glucose (Fingerstick) 115 mg/dL (70-99) 49 mg/dL (70-99) 96 mg/dL (70-99) Test 06/26/21 19:09 06/26/21 21:07 06/26/21 22:59 06/27/21 01:02 Glucose (Fingerstick) 85 mg/dL (70-99) 112 mg/dL (70-99) 136 mg/dL (70-99) 138 mg/dL (70-99) Test 06/27/21 02:59 06/27/21 05:07 06/27/21 07:48 06/27/21 08:33 Glucose (Fingerstick) 140 mg/dL (70-99) 128 mg/dL (70-99) 122 mg/dL (70-99) Sodium Level 134 mmol/L (136-145) Potassium Level 4.6 mmol/L (3.5-5.1) Chloride Level 99 mmol/L (98-107) Carbon Dioxide Level 27 mmol/L (21-32) Anion Gap 8 (6-14) Blood Urea Nitrogen 28 mg/dL (8-26) Creatinine 6.7 mg/dL (0.7-1.3) Estimated GFR (Cockcroft-Gault) 9.2 Glucose Level 126 mg/dL (70-99) Calcium Level 7.3 mg/dL (8.5-10.1) Test 06/27/21 12:02 Glucose (Fingerstick) 113 mg/dL (70-99) Laboratory Tests Test 06/26/21 16:35 06/26/21 18:09 06/26/21 19:09 06/26/21 21:07 Glucose (Fingerstick) 49 mg/dL (70-99) 96 mg/dL (70-99) 85 mg/dL (70-99) 112 mg/dL (70-99) Test 06/26/21 22:59 06/27/21 01:02 06/27/21 02:59 06/27/21 05:07 Glucose (Fingerstick) 136 mg/dL (70-99) 138 mg/dL (70-99) 140 mg/dL (70-99) 128 mg/dL (70-99) Test 06/27/21 07:48 06/27/21 08:33 06/27/21 12:02 Glucose (Fingerstick) 122 mg/dL (70-99) 113 mg/dL (70-99) Sodium Level 134 mmol/L (136-145) Potassium Level 4.6 mmol/L (3.5-5.1) Chloride Level 99 mmol/L (98-107) Carbon Dioxide Level 27 mmol/L (21-32) Anion Gap 8 (6-14) Blood Urea Nitrogen 28 mg/dL (8-26) Creatinine 6.7 mg/dL (0.7-1.3) Estimated GFR (Cockcroft-Gault) 9.2 Glucose Level 126 mg/dL (70-99) Calcium Level 7.3 mg/dL (8.5-10.1) Medications Current Medications Sodium Chloride 1,000 ml @ 1,000 mls/hr Q1H PRN IV hypotension; Start 06/15/21 at 19:15; Stop 06/16/21 at 01:14; Status DC Albumin Human 200 ml @ 200 mls/hr 1X PRN PRN IV Hypotension Last administered on 06/15/21at 19:05; Start 06/15/21 at 19:15; Stop 06/16/21 at 01:14; Status DC Sodium Chloride 1,000 ml @ 400 mls/hr Q2H30M PRN IV PATENCY; Start 06/15/21 at 19:15; Stop 06/16/21 at 07:14; Status DC Info (PHARMACY MONITORING -- do not chart) 1 each PRN DAILY PRN MC SEE COMMENTS; Start 06/15/21 at 19:15; Status Cancel Info (PHARMACY MONITORING -- do not chart) 1 each PRN DAILY PRN MC SEE COMMENTS; Start 06/15/21 at 19:15; Status Cancel Insulin Human Lispro (HumaLOG) 0-7 UNITS TIDWMEALS SQ Last administered on 06/22/21at 17:42; Start 06/16/21 at 08:00 Dextrose (Dextrose 50%-Water Syringe) 12.5 gm PRN Q15MIN PRN IV SEE COMMENTS Last administered on 06/26/21at 17:10; Start 06/15/21 at 20:45 Aspirin (Ecotrin) 81 mg DAILY PO Last administered on 06/17/21at 10:58; Start 06/16/21 at 09:00; Stop 06/17/21 at 11:35; Status DC Atorvastatin Calcium (Lipitor) 40 mg QHS PO Last administered on 06/18/21at 21:00; Start 06/15/21 at 23:00; Stop 06/19/21 at 14:04; Status DC Clonidine HCl (Catapres) 0.1 mg PRN Q8HRS PRN PO HTN; Start 06/15/21 at 22:30 Clopidogrel Bisulfate (Plavix) 75 mg DAILY PO Last administered on 06/17/21at 10:56; Start 06/16/21 at 09:00; Stop 06/17/21 at 11:35; Status DC Furosemide (Lasix) 80 mg DAILY PO Last administered on 06/16/21at 09:00; Start 06/16/21 at 09:00; Stop 06/18/21 at 10:28; Status DC Gabapentin (Neurontin) 300 mg QHS PO Last administered on 06/26/21at 21:50; Start 06/15/21 at 23:00 Hydroxyzine HCl (Atarax) 25 mg PRN Q6HRS PRN PO ALLERGIES; Start 06/15/21 at 22:30 Pantoprazole Sodium (Protonix) 40 mg DAILYAC PO Last administered on 06/27/21at 07:52; Start 06/16/21 at 07:30 Quetiapine Fumarate (SEROquel) 25 mg DAILY PO Last administered on 06/27/21at 12:48; Start 06/16/21 at 09:00 Calcium Acetate (Phoslo) 667 mg TIDWMEALS PO Last administered on 06/27/21at 12:47; Start 06/16/21 at 08:00 Carvedilol (Coreg) 50 mg BIDWMEALS PO Last administered on 06/16/21at 18:18; Start 06/16/21 at 08:00; Stop 06/18/21 at 10:28; Status DC Hydralazine HCl (Apresoline) 100 mg BID PO ; Start 06/15/21 at 23:00; Stop 06/18/21 at 10:28; Status DC Insulin Glargine (Lantus Syringe) 32 unit QHS SQ Last administered on 06/25/21at 21:00; Start 06/15/21 at 23:00; Stop 06/26/21 at 11:13; Status DC Oxycodone HCl (Roxicodone) 5 mg PRN Q4HRS PRN PO SEVERE PAIN 7-10 Last administered on 06/18/21at 14:23; Start 06/15/21 at 22:45; Stop 06/18/21 at 16:20; Status DC Sertraline HCl (Zoloft) 100 mg DAILY PO Last administered on 06/27/21at 12:48; Start 06/16/21 at 09:00 Non-Formulary Medication (Sucroferric Oxyhydroxide (Velphoro)) 1 tab TID PO ; Start 06/16/21 at 09:00; Stop 06/17/21 at 11:17; Status DC Vitamin B Complex/ Vitamin C (Yajaira-Allna) 1 tab DAILY PO Last administered on 06/27/21at 07:42; Start 06/16/21 at 09:00 Sodium Chloride 1,000 ml @ 1,000 mls/hr Q1H PRN IV hypotension; Start 06/16/21 at 07:00; Stop 06/16/21 at 12:59; Status DC Sodium Chloride 1,000 ml @ 400 mls/hr Q2H30M PRN IV PATENCY; Start 06/16/21 at 07:00; Stop 06/16/21 at 18:59; Status DC Info (PHARMACY MONITORING -- do not chart) 1 each PRN DAILY PRN MC SEE COMMENTS; Start 06/16/21 at 07:00; Status Cancel Info (PHARMACY MONITORING -- do not chart) 1 each PRN DAILY PRN MC SEE COMMENTS; Start 06/16/21 at 07:00; Status Cancel Midodrine (Proamatine) 5 mg [id number] PO Last administered on 06/18/21at 12:44; Start 06/17/21 at 13:45; Stop 06/18/21 at 15:13; Status DC Diphenhydramine HCl (Benadryl) 25 mg PRN 1X PRN PO PRE-TRANSFUSION Last administered on 06/18/21at 12:43; Start 06/17/21 at 14:30; Stop 06/18/21 at 14:29; Status DC Norepinephrine Bitartrate 8 mg/ Dextrose 258 ml @ 25.445 mls/ hr CONT PRN IV PER PROTOCOL Last administered on 06/18/21at 11:05; Start 06/18/21 at 10:45; Stop 06/19/21 at 13:47; Status DC Aspirin (Ecotrin) 81 mg DAILYWBKFT PO Last administered on 06/27/21at 12:49; Start 06/19/21 at 08:00 Ondansetron HCl (Zofran) 4 mg PRN Q4HRS PRN IVP NAUSEA/VOMITING Last administered on 06/26/21at 18:45; Start 06/18/21 at 13:30 Sodium Chloride 1,000 ml @ 1,000 mls/hr Q1H PRN IV hypotension; Start 06/18/21 at 13:45; Stop 06/18/21 at 19:44; Status DC Sodium Chloride 1,000 ml @ 400 mls/hr Q2H30M PRN IV PATENCY; Start 06/18/21 at 13:45; Stop 06/19/21 at 01:44; Status DC Info (PHARMACY MONITORING -- do not chart) 1 each PRN DAILY PRN MC SEE COMMENTS; Start 06/18/21 at 13:45; Status Cancel Albumin Human 200 ml @ 200 mls/hr 1X PRN PRN IV Hypotension Last administered on 06/18/21at 17:29; Start 06/18/21 at 13:45; Stop 06/18/21 at 19:44; Status DC Docusate Sodium (Colace) 100 mg BID PO Last administered on 06/23/21at 21:31; Start 06/18/21 at 14:15; Stop 06/27/21 at 10:13; Status DC Polyethylene Glycol (miraLAX PACKET) 17 gm DAILY PO Last administered on 06/22/21at 12:22; Start 06/18/21 at 14:15; Stop 06/27/21 at 10:13; Status DC Bisacodyl (Dulcolax Supp) 10 mg PRN DAILY PRN MT CONSTIPATION; Start 06/18/21 at 14:15 Midodrine (Proamatine) 7.5 mg [id number] PO ; Start 06/19/21 at 07:00; Stop 06/18/21 at 15:21; Status DC Midodrine (Proamatine) 10 mg 1X ONCE PO ; Start 06/18/21 at 15:15; Stop 06/18/21 at 15:21; Status DC Midodrine (Proamatine) 10 mg [id number] PO Last administered on 06/26/21at 13:04; Start 06/19/21 at 07:00 Midodrine (Proamatine) 5 mg 1X ONCE PO Last administered on 06/18/21at 17:00; Start 06/18/21 at 15:30; Stop 06/18/21 at 15:31; Status DC Oxycodone HCl (Roxicodone) 10 mg PRN Q4HRS PRN PO SEVERE PAIN 7-10 Last administered on 06/27/21at 02:53; Start 06/18/21 at 16:15 Lidocaine HCl (Xylocaine 2% Topical 30gm Tube) 1 daljit PRN TID PRN TP PAIN Last administered on 06/20/21at 03:42; Start 06/18/21 at 16:15 Sodium Chloride 1,000 ml @ 1,000 mls/hr Q1H PRN IV hypotension; Start 06/20/21 at 08:30; Stop 06/20/21 at 14:29; Status DC Albumin Human 200 ml @ 200 mls/hr 1X PRN PRN IV Hypotension Last administered on 06/20/21at 10:30; Start 06/20/21 at 08:30; Stop 06/20/21 at 14:29; Status DC Sodium Chloride 1,000 ml @ 400 mls/hr Q2H30M PRN IV PATENCY; Start 06/20/21 at 08:30; Stop 06/20/21 at 20:29; Status DC Info (PHARMACY MONITORING -- do not chart) 1 each PRN DAILY PRN MC SEE C OMMENTS; Start 06/20/21 at 08:30; Status UNV Info (PHARMACY MONITORING -- do not chart) 1 each PRN DAILY PRN MC SEE COMMENTS; Start 06/20/21 at 08:30; Status Cancel Epoetin Kory-epbx (RETACRIT for ESRD PTS) 10,000 unit MoWeFr@2100 SQ Last administered on 06/25/21at 22:23; Start 06/20/21 at 21:00 Piperacillin Sod/ Tazobactam Sod 2.25 gm/Sodium Chloride 50 ml @ 100 mls/hr Q8HRS IV Last administered on 06/26/21at 13:06; Start 06/22/21 at 13:00; Stop 06/26/21 at 14:40; Status DC Vancomycin HCl (Vanco Per Pharmacy) 1 each PRN DAILY PRN MC SEE COMMENTS Last administered on 06/24/21at 09:40; Start 06/22/21 at 11:30; Stop 06/25/21 at 1 1:18; Status DC Vancomycin HCl 2 gm/Sodium Chloride 500 ml @ 250 mls/hr 1X ONCE IV Last administered on 06/22/21at 14:31; Start 06/22/21 at 13:00; Stop 06/22/21 at 14:59; Status DC Vancomycin HCl (Vancomycin Random Level) 1 each 1X ONCE MC Last administered on 06/24/21at 07:25; Start 06/24/21 at 06:00; Stop 06/24/21 at 06:01; Status DC Lactobacillus Rhamnosus (Culturelle) 1 cap BID PO Last administered on 06/27/21at 07:42; Start 06/23/21 at 21:00 Perflutren Protein Type A Microsphe (Optison) 0.66 mg STK-MED ONCE IV ; Start 06/19/21 at 08:00; Stop 06/23/21 at 13:24; Status DC Info (PHARMACY MONITORING -- do not chart) 1 each PRN DAILY PRN MC SEE COMMENTS; Start 06/23/21 at 14:15; Stop 06/25/21 at 16:22; Status DC Vancomycin HCl 500 mg/Sodium Chloride 100 ml @ 100 mls/hr QMWF IV ; Start 06/25/21 at 16:00; Stop 06/25/21 at 11:16; Status DC Perflutren Protein Type A Microsphe (Optison) 0.66 mg STK-MED ONCE IV ; Start 06/19/21 at 07:23; Stop 06/24/21 at 12:47; Status DC Sodium Chloride 1,000 ml @ 1,000 mls/hr Q1H PRN IV hypotension; Start 06/25/21 at 07:45; Stop 06/25/21 at 13:44; Status DC Sodium Chloride 1,000 ml @ 400 mls/hr Q2H30M PRN IV PATENCY; Start 06/25/21 at 07:45; Stop 06/25/21 at 19:44; Status DC Info (PHARMACY MONITORING -- do not chart) 1 each PRN DAILY PRN MC SEE COMMENTS; Start 06/25/21 at 07:45; Status UNV Info (PHARMACY MONITORING -- do not chart) 1 each PRN DAILY PRN MC SEE COMMENTS; Start 06/25/21 at 07:45; Status Cancel Clopidogrel Bisulfate (Plavix) 75 mg DAILYWBKFT PO Last administered on 06/27/21at 12:49; Start 06/26/21 at 08:00 Insulin Glargine (Lantus Syringe) 16 unit QHS SQ ; Start 06/26/21 at 11:15; Stop 06/26/21 at 11:15; Status DC Vancomycin HCl (Vancomycin Oral Solution) 125 mg [id number] PO Last administered on 06/27/21at 12:45; Start 06/26/21 at 13:00 Insulin Glargine (Lantus Syringe) 16 unit QHS SQ ; Start 06/26/21 at 21:00; Stop 06/26/21 at 18:28; Status DC Dextrose (Dextrose 50%-Water Syringe) 25 gm 1X ONCE IV Last administered on 06/26/21at 11:41; Start 06/26/21 at 11:30; Stop 06/26/21 at 11:31; Status DC Amoxicillin/ Clavulanate Potassium (Augmentin 875/ 125mg) 1 tab Q24H PO ; Start 06/27/21 at 18:00; Stop 06/29/21 at 18:01 Dextrose 500 ml @ 30 mls/hr CONT PRN IV SEE NOTES Last administered on 06/26/21at 17:30; Start 06/26/21 at 18:30 Sodium Chloride 1,000 ml @ 1,000 mls/hr Q1H PRN IV hypotension; Start 06/27/21 at 07:45; Stop 06/27/21 at 13:44; Status DC Sodium Chloride (Normal Saline Flush) 10 ml 1X PRN PRN IV AP catheter pack; Start 06/27/21 at 07:45; Stop 06/28/21 at 07:44 Sodium Chloride (Normal Saline Flush) 10 ml 1X PRN PRN IV [employer] catheter pack; Start 06/27/21 at 07:45; Stop 06/28/21 at 07:44 Info (PHARMACY MONITORING -- do not chart) 1 each PRN DAILY PRN MC SEE COMMENTS; Start 06/27/21 at 07:45; Status UNV Info (PHARMACY MONITORING -- do not chart) 1 each PRN DAILY PRN MC SEE COMMENTS; Start 06/27/21 at 07:45 Polyethylene Glycol (miraLAX PACKET) 17 gm PRN DAILY PRN PO constipation; Start 06/27/21 at 10:15 Active Scripts Active Reported Calcium Acetate 667 Mg Tablet 1 Tab PO TID 30 Days Zoloft (Sertraline Hcl) 100 Mg Tablet 1 Tab PO DAILY Velphoro (Sucroferric Oxyhydroxide) 500 Mg Tab.chew 1 Tab PO TID 30 Days Seroquel (Quetiapine Fumarate) 25 Mg Tablet 1 Tab PO DAILY Yajaira-Allan Rx Tablet (Vit B Cmplx 3/Fa/Vit C/Biotin) 1 Each Tablet 1 Tab PO DAILY 30 Days Clopidogrel (Clopidogrel Bisulfate) 75 Mg Tablet 1 Tab PO DAILY Pantoprazole Sodium 40 Mg Tablet. 40 Mg PO DAILY Oxycodone Hcl 5 Mg Capsule 5 Mg PO PRN Q4HRS PRN Lantus Solostar (Insulin Glargine,Hum.rec.anlog) 100 Unit/1 Ml Insuln.pen 32 Unit SQ QHS Hydroxyzine Hcl 25 Mg Tablet 1 Tab PO PRN Q6HRS PRN Hydralazine Hcl 100 Mg Tablet 1 Tab PO BID Gabapentin (Gabapentin) 300 Mg Capsule 300 Mg PO TID Furosemide 80 Mg Tablet 1 Tab PO DAILY Clonidine Hcl 0.1 Mg Tablet 0.1 Mg PO PRN Q8HRS PRN Carvedilol 25 Mg Tablet 50 Mg PO BIDWMEALS Atorvastatin Calcium 40 Mg Tablet 1 Tab PO QHS Aspirin Ec (Aspirin) 81 Mg Tablet. 1 Tab PO DAILY Vitals/I & O Vital Sign - Last 24 Hours 06/26/21 06/26/21 06/26/21 06/26/21 18:00 19:00 20:00 23:19 Temp 98.2 98.0 98.2 98.0 Pulse 81 75 78 Resp 18 18 B/P (MAP) 116/72 149/65 (93) 107/61 (76) Pulse Ox 96 94 O2 Delivery Room Air Room Air Room Air 06/27/21 06/27/21 06/27/21 06/27/21 02:53 03:28 03:34 06:08 Temp 98.4 98.4 Pulse 82 77 Resp 18 18 18 B/P (MAP) 114/69 (84) 129/64 Pulse Ox 98 O2 Delivery Room Air 06/27/21 06/27/21 06/27/21 06/27/21 07:00 08:00 11:00 12:49 Temp 97.8 97.6 97.8 97.6 Pulse 78 77 77 Resp 18 18 B/P (MAP) 110/65 (80) 119/68 (85) 119/68 Pulse Ox 97 92 O2 Delivery Room Air Room Air Room Air 06/27/21 15:00 Temp 97.7 97.7 Pulse 80 Resp 17 B/P (MAP) 93/50 (64) Pulse Ox 94 O2 Delivery Room Air Intake and Output 06/26/21 06/26/21 06/27/21 15:00 23:00 07:00 Intake Total 300 ml 300 ml 120 ml Balance 300 ml 300 ml 120 ml Justifications for Admission Other Justification TJ PRESTON MD Jun 27, 2021 16:19
[2021-06-27] MEDS: AMOXICILLIN/K CLAV 875/125MG TABLET. PO SCH (18:11)
[2021-06-27 19:00] VITALS: BP 120/61
[2021-06-27] MEDS: GABAPENTIN 300 MG CAPSULE. PO SCH (21:47)
[2021-06-27] MEDS: EPOETIN ALFA-EPBX for ESRD 20,000 UNIT/ML VIAL. SQ SCH (21:48)
[2021-06-27 23:00] VITALS: BP 105/62
[2021-06-28] MEDS: oxyCODONE IR 5 MG TABLET PO PRN ×2 (00:47→09:32)
[2021-06-28 03:00] VITALS: BP 125/73
[2021-06-28] MEDS: ONDANSETRON PF 4 MG/2 ML VIAL. IVP PRN (03:31)
[2021-06-28] MEDS: MIDODRINE 5 MG TABLET PO SCH ×3 (06:08→17:19)
[2021-06-28 07:00] VITALS: BP 129/68
[2021-06-28] MEDS: INSULIN LISPRO 300 UNITS/3 ML VIAL. SQ SCH ×3 (08:00→17:00)
[2021-06-28] MEDS: FOLIC/VIT B COMP W-C (RENAL) TABLET. PO SCH (09:30)
[2021-06-28] MEDS: SERTRALINE 50 MG TABLET. PO SCH (09:30)
[2021-06-28] MEDS: ASPIRIN ENTERIC COATED 81 MG TABLET.DR. PO SCH (09:31)
[2021-06-28] MEDS: CLOPIDOGREL BISULFATE 75 MG TABLET PO SCH (09:31)
[2021-06-28] MEDS: PANTOPRAZOLE 40 MG TABLET.DR. PO SCH (09:31)
[2021-06-28] MEDS: CALCIUM ACETATE 667 MG CAPSULE PO SCH ×3 (09:31→17:18)
[2021-06-28] MEDS: QUEtiapine 25 MG TABLET. PO SCH (09:32)
[2021-06-28] MEDS: VANCOMYCIN 125 MG/2.5 ML ORAL SOLUTION. PO SCH ×4 (09:33→22:03)
[2021-06-28] MEDS: LACTOBACILLUS RHAMNOSUS GG 1 CAPSULE. PO SCH ×2 (09:33→22:03)
--- NOTE | 2021-06-28 10:01 | PN ---
DATE: 06/28/2021 SUBJECTIVE: The patient is resting, slightly propped up in bed, in no apparent respiratory distress. He is eating his breakfast comfortably. On questioning him, he stated that he is feeling tired, was worried that his blood count has dropped. He was accepted with [facility]; however, I am not sure whether it is safe for him to be discharged on the weekend as he lives alone and therefore I will discharge him on Wednesday. PHYSICAL EXAMINATION: GENERAL: When I examined him this morning, he looked well and was clearly in no apparent respiratory distress, somewhat pale, no jaundice, cyanosis or thyromegaly. No jugular venous distention. No limb edema. VITAL SIGNS: His heart rate was 81, blood pressure was 129/68, temperature was 98.2, respiratory rate was 18 and oxygen saturation was 92% on room air. HEAD, EYES, EARS, NOSE, AND THROAT: Normocephalic, atraumatic. NECK: Supple. HEART: Normal first and second heart sounds. No gallop, rub or murmur. CHEST: Clear to auscultation, no crepitation or rhonchi. ABDOMEN: Distended, soft, nontender. NEUROLOGIC: He was awake, alert, responding appropriately. All cranial nerves intact. He moves all extremities to much good extent than lower extremities. He is mostly bedbound. He has left below-knee amputation. His intake and output are incompletely recorded. LABORATORY DATA: His most recent hemoglobin was 8.8, hematocrit 28. ASSESSMENT: 1. Life-threatening hyperkalemia, resolved. 2. End-stage renal disease, on hemodialysis Wednesday, Wednesday, Wednesday. 3. Severe anemia for which he has received at least 3 units packed RBCs. He is now on Epoetin malini 10,000 units subcutaneously Wednesday, Wednesday, Wednesday. His most recent hemoglobin and hematocrit was 8.8 and 27. 4. Hypotension, for which he is now on midodrine 10 mg 3 times a day. I have discontinued his Coreg and hydralazine. His blood pressure seems to be reasonably controlled. 5. Severe peripheral vascular disease, status post left below-knee amputation. 6. 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 7. The patient has impaired liver enzymes, ascites and required multiple paracenteses; however, his hepatitis serology were all negative. Serum ferritin was extremely high; however, according to the fancy sewer this is an acute phase reactant and does not signify hemochromatosis. 8. Altered mental status, confusion, diaphoresis together with fever for which we have pancultured him and started empirically on Zosyn and vancomycin so far. He has been afebrile and unfortunately no blood cultures were taken. He is now on Augmentin. 9. Recurrent bouts of loose bowel movement for which I started empirically on vancomycin 125 mg 4 times a day. His stool for C. diff still pending. PLAN: My plan is to discharge him hopefully on Wednesday to home with home health. RU DR: Nelson TID: [id number]
[2021-06-28 11:00] VITALS: BP_SYST 65
--- NOTE | 2021-06-28 12:17 | PDOC ---
DATE OF SERVICE DATE: 06/28/21 TIME: 12:16 SUBJECTIVE ROS Stable , No complaints OBJECTIVE Vital Signs Vital Signs Date Time Temp Pulse Resp B/P (MAP) Pulse Ox O2 Delivery O2 Flow Rate FiO2 06/28/21 10:31 92 Room Air 2.0 06/28/21 07:00 98.2 81 18 129/68 (88) 98.2 I & 0 Intake and Output 06/28/21 07:00 Intake Total 500 ml Output Total 0 ml Balance 500 ml Intake Oral 500 ml Stool Total 0 ml # Voids 1 # Bowel Movements 2 PHYSICAL EXAM Physical Exam GENERAL: NAD, HEEN OM moist NECK: Supple. HEART: S1S2, SR with LBBB LUNGS: Clear to auscultation,decreased at bases Non labored ABDOMEN: soft, nontender.Obese NEUROLOGIC: awake, alert,Grossly normal No Rodriguez DERM No Rash DIAGNOSIS/ASSESSMENT Assessment & Plan ESRD- On HD MWF. He has been on Dialysis since 2017. No indication for dialysis today OP unit LE [facility]- Under Dr Godoy's care( [facility]) , per Nursing staff- chronic non compliance with treatments HyperKalemia life threatening POA - Dialyzed emergently . Anemia- s/p PRBC .Stable Ferritin elevated Continue MINDY NSTEMI: Per cardiology CAD: reported 2 stents placed about a month ago at [facility] Hx of DVT: on home eliquis Covid-19: Not Vaccinated Hx of CVA: MRI in 2016 Scattered tiny foci of restricted diffusion in different vascular territories suggesting embolic acute infarcts. Hx of Hypertension- low BP's since 06/17 , BP improved , Increased Midodrine to 10 mg TID Poorly controlled type 2 diabetes mellitus, diabetic retinopathy. Hypoglycemia- currently Dextrose gtt per primary Ascites and nonalcoholic steatohepatitis - Per [facility] staff he is supposed to be on scheduled paracentesis , non compliant Peritoneal nodularities and greater omental fat induration --can be seen in peritoneal carcinomatosis. Radiology Recommend diagnostic paracentesis cytology. Similar multiple prominent to mildly enlarged upper abdominal, retroperitoneal and bilateral pelvic lymph node indeterminate. Defer to Primary COMMENT/RELEVANT DATA Meds Current Medications Medications (Trade) Dose Ordered Sig/Damien Start Time Stop Time Status Last Admin Dose Admin Albumin Human 200 ml @ 200 mls/hr 1X PRN PRN 06/20/21 08:30 06/20/21 14:29 DC 06/20/21 10:30 200 MLS/HR Amoxicillin/ Clavulanate Potassium (Augmentin 875/ 125mg) 1 tab Q24H 06/27/21 18:00 06/29/21 18:01 06/27/21 18:11 1 TAB Aspirin (Ecotrin) 81 mg DAILYWBKFT 06/19/21 08:00 06/28/21 09:31 81 MG Atorvastatin Calcium (Lipitor) 40 mg QHS 06/15/21 23:00 06/19/21 14:04 DC 06/18/21 21:00 40 MG Bisacodyl (Dulcolax Supp) 10 mg PRN DAILY PRN 06/18/21 14:15 Calcium Acetate (Phoslo) 667 mg TIDWMEALS 06/16/21 08:00 06/28/21 09:31 667 MG Carvedilol (Coreg) 50 mg BIDWMEALS 06/16/21 08:00 06/18/21 10:28 DC 06/16/21 18:18 50 MG Clonidine HCl (Catapres) 0.1 mg PRN Q8HRS PRN 06/15/21 22:30 Clopidogrel Bisulfate (Plavix) 75 mg DAILYWBKFT 06/26/21 08:00 06/28/21 09:31 75 MG Dextrose 500 ml @ 30 mls/hr CONT PRN 06/26/21 18:30 06/26/21 17:30 30 MLS/HR Dextrose (Dextrose 50%-Water Syringe) 25 gm 1X ONCE 06/26/21 11:30 06/26/21 11:31 DC 06/26/21 11:41 25 GM Diphenhydramine HCl (Benadryl) 25 mg PRN 1X PRN 06/17/21 14:30 06/18/21 14:29 DC 06/18/21 12:43 25 MG Docusate Sodium (Colace) 100 mg BID 06/18/21 14:15 06/27/21 10:13 DC 06/23/21 21:31 100 MG Epoetin Kory-epbx (RETACRIT for ESRD PTS) 10,000 unit MoWeFr@2100 06/20/21 21:00 06/27/21 21:48 10,000 UNIT Furosemide (Lasix) 80 mg DAILY 06/16/21 09:00 06/18/21 10:28 DC 06/16/21 09:00 80 MG Gabapentin (Neurontin) 300 mg QHS 06/15/21 23:00 06/27/21 21:47 300 MG Hydralazine HCl (Apresoline) 100 mg BID 06/15/21 23:00 06/18/21 10:28 DC Hydroxyzine HCl (Atarax) 25 mg PRN Q6HRS PRN 06/15/21 22:30 Info (PHARMACY MONITORING -- do not chart) 1 each PRN DAILY PRN 06/27/21 07:45 Insulin Glargine (Lantus Syringe) 16 unit QHS 06/26/21 21:00 06/26/21 18:28 DC Insulin Human Lispro (HumaLOG) 0-7 UNITS TIDWMEALS 06/16/21 08:00 06/22/21 17:42 3 UNITS Lactobacillus Rhamnosus (Culturelle) 1 cap BID 06/23/21 21:00 06/28/21 09:33 1 CAP Lidocaine HCl (Xylocaine 2% Topical 30gm Tube) 1 daljit PRN TID PRN 06/18/21 16:15 06/20/21 03:42 1 DALJIT Midodrine (Proamatine) 5 mg 1X ONCE 06/18/21 15:30 06/18/21 15:31 DC 06/18/21 17:00 5 MG Non-Formulary Medication (Sucroferric Oxyhydroxide (Velphoro)) 1 tab TID 06/16/21 09:00 06/17/21 11:17 DC Norepinephrine Bitartrate 8 mg/ Dextrose 258 ml @ 25.445 mls/ hr CONT PRN 06/18/21 10:45 06/19/21 13:47 DC 06/18/21 11:05 25.445 MLS/HR Ondansetron HCl (Zofran) 4 mg PRN Q4HRS PRN 06/18/21 13:30 06/28/21 03:31 4 MG Oxycodone HCl (Roxicodone) 10 mg PRN Q4HRS PRN 06/18/21 16:15 06/28/21 09:32 10 MG Pantoprazole Sodium (Protonix) 40 mg DAILYAC 06/16/21 07:30 06/28/21 09:31 40 MG Perflutren Protein Type A Microsphe (Optison) 0.66 mg STK-MED ONCE 06/19/21 07:23 06/24/21 12:47 DC Piperacillin Sod/ Tazobactam Sod 2.25 gm/Sodium Chloride 50 ml @ 100 mls/hr Q8HRS 06/22/21 13:00 06/26/21 14:40 DC 06/26/21 13:06 100 MLS/HR Polyethylene Glycol (miraLAX PACKET) 17 gm PRN DAILY PRN 06/27/21 10:15 Quetiapine Fumarate (SEROquel) 25 mg DAILY 06/16/21 09:00 06/28/21 09:32 25 MG Sertraline HCl (Zoloft) 100 mg DAILY 06/16/21 09:00 06/28/21 09:30 100 MG Sodium Chloride (Normal Saline Flush) 10 ml 1X PRN PRN 06/27/21 07:45 06/28/21 07:44 DC Vancomycin HCl (Vanco Per Pharmacy) 1 each PRN DAILY PRN 06/22/21 11:30 06/25/21 11:18 DC 06/24/21 09:40 1 EACH Vancomycin HCl (Vancomycin Random Level) 1 each 1X ONCE 06/24/21 06:00 06/24/21 06:01 DC 06/24/21 07:25 1 EACH Vancomycin HCl (Vancomycin Oral Solution) 125 mg [id number] 06/26/21 13:00 06/28/21 09:33 125 MG Vancomycin HCl 500 mg/Sodium Chloride 100 ml @ 100 mls/hr QMWF 06/25/21 16:00 06/25/21 11:16 DC Vancomycin HCl 2 gm/Sodium Chloride 500 ml @ 250 mls/hr 1X ONCE 06/22/21 13:00 06/22/21 14:59 DC 06/22/21 14:31 250 MLS/HR Vitamin B Complex/ Vitamin C (Yajaira-Allan) 1 tab DAILY 06/16/21 09:00 06/28/21 09:30 1 TAB Lab Laboratory Tests Test 06/27/21 16:35 06/27/21 20:20 06/28/21 01:25 06/28/21 07:43 Glucose (Fingerstick) 128 mg/dL (70-99) 122 mg/dL (70-99) 156 mg/dL (70-99) 143 mg/dL (70-99) Test 06/28/21 11:39 Glucose (Fingerstick) 160 mg/dL (70-99) Results All relevant outside records, renal labs, imaging studies, telemetry/EKG's were reviewed. Justicifation of Admission Dx: Justifications for Admission: Justification of Admission Dx: N/A CHANI DANIELLE MD Jun 28, 2021 12:17
[2021-06-28 15:00] VITALS: BP 132/67
--- NOTE | 2021-06-28 15:33 | PDOC ---
Date of Service: DATE: 06/28/21 TIME: 15:32 Progress Note: S: No new events. Reports that his chest hurts similar to when he needed transfusion. Physical Exam HEENT: Neck Supple W Full Motion Chest: Symmetric LUNGS: Other (diminished) Heart: RRR (intermittent V pacing) Abdomen: Soft, obese, Extremities: Other (anasarca), improved. Neurology: alert, oriented, follow commands Assessment Assessment 1. Severe anemia with possible GI bleed: no obvious bleed getting transfusion currently 2. NSTEMI: possibly demand mediated with multiple culprits CP free. EF and WM nml per TTE 3. Shock: multifactorial. BP stable and marginal 4. ESRD with severe hyperkalemia: due to missed HD 5. DM2: per PCP 6. CAD: [facility] records reviewed and noted [facility] 01/2021 at [facility] but no intervention at that time and has had stent to RCA before. No evidence of recent stent placement 7. Hx of DVT: on home eliquis 8. Anasarca with increasing transamintis/coagulopathy: GI following 9. Protein malnutrition 10. Covid-19: denies vaccination 12. Hx of CVA: MRI in 2016 Scattered tiny foci of restricted diffusion in different vascular territories suggesting embolic acute infarcts. 13. HLP: on statin 14. 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 Continue ECASA, Discussed with GI and ok to restart plavix. Check cbc today. 2. Secondary prevention measures as tolerated. Would not be able to tolerate BP meds. Continue midodrine 3. Fluid off loading per HD 4. Continue midodrine. Monitor BP trend. Hold statin for now with elevated LFTs. Start on statin in 1-2 weeks low dose as an outpt. Follow up with [facility] cardiology Justifications for Admission Other Justification SHIELA FLORES MD Jun 28, 2021 15:33
[2021-06-28 16:16] LABS: HEMATOCRIT 25.8 % (39.0-53.0); HEMOGLOBIN 8.3 g/dL (13.0-17.5); RED BLOOD COUNT 2.89 x10^6/uL (4.30-5.70); RED CELL DISTRIBUTION WIDTH 15.9 % (11.5-14.5); WHITE BLOOD COUNT 9.2 x10^3/uL (4.0-11.0)
[2021-06-28] MEDS: AMOXICILLIN/K CLAV 875/125MG TABLET. PO SCH (17:18)
[2021-06-28 19:56] VITALS: BP 140/62
[2021-06-28] MEDS: GABAPENTIN 300 MG CAPSULE. PO SCH (22:03)
[2021-06-28] MEDS: LIDOCAINE 2% TOPICAL JELLY 30GM TUBE. TP PRN (22:11)
[2021-06-28 22:59] VITALS: BP 151/68
[2021-06-29] MEDS: oxyCODONE IR 5 MG TABLET PO PRN ×3 (02:52→22:09)
[2021-06-29 03:00] VITALS: BP 145/70
[2021-06-29] MEDS: MIDODRINE 5 MG TABLET PO SCH ×3 (06:04→18:05)
[2021-06-29 07:00] VITALS: BP 142/62
[2021-06-29] MEDS: VANCOMYCIN 125 MG/2.5 ML ORAL SOLUTION. PO SCH ×4 (09:00→22:09)
[2021-06-29] MEDS: CALCIUM ACETATE 667 MG CAPSULE PO SCH ×3 (09:00→17:57)
[2021-06-29] MEDS: ASPIRIN ENTERIC COATED 81 MG TABLET.DR. PO SCH (09:00)
[2021-06-29] MEDS: LACTOBACILLUS RHAMNOSUS GG 1 CAPSULE. PO SCH ×2 (09:00→22:09)
[2021-06-29] MEDS: QUEtiapine 25 MG TABLET. PO SCH (09:00)
[2021-06-29] MEDS: CLOPIDOGREL BISULFATE 75 MG TABLET PO SCH (09:00)
[2021-06-29] MEDS: FOLIC/VIT B COMP W-C (RENAL) TABLET. PO SCH (09:00)
[2021-06-29] MEDS: SERTRALINE 50 MG TABLET. PO SCH (09:00)
[2021-06-29] MEDS: PANTOPRAZOLE 40 MG TABLET.DR. PO SCH (09:00)
[2021-06-29] MEDS: INSULIN LISPRO 300 UNITS/3 ML VIAL. SQ SCH ×3 (09:06→17:58)
--- NOTE | 2021-06-29 09:38 | PN ---
DATE: 06/29/2021 SUBJECTIVE: The patient is resting, slightly propped up, eating his breakfast comfortably, in no apparent distress. He continued to have loose bowel movement, but denied any other complaint. Nursing staff did not voice any concerns that he had an eventful night. PHYSICAL EXAMINATION: GENERAL: When I examined him, he looked pale, not jaundiced or cyanosed, no lymphadenopathy, no thyromegaly, no jugular venous distention. No lower limb edema. VITAL SIGNS: His heart rate was 82, blood pressure was 142/62, temperature was 98.5, respiratory rate was 18 and oxygen saturation was 93% on room air. HEAD, EYES, EARS, NOSE AND THROAT: Normocephalic, atraumatic. NECK: Supple. HEART: Showed normal first and second heart sounds. No gallop, rub or murmur. CHEST: Clear to auscultation, no crepitation or rhonchi. ABDOMEN: Distended, soft, nontender. NEUROLOGIC: He was awake, alert, responding appropriately. All his cranial nerves intact. He moves all extremities without difficulty. He has left below-knee amputation. He is mostly bedbound, wheelchair bound. His intake 500, no output recorded. LABORATORY DATA: As of yesterday showed a hemoglobin of 7.7. His chemistry is variable. His blood sugar seems to be reasonably controlled. ASSESSMENT: 1. Life-threatening hyperkalemia, resolved. 2. End-stage renal disease, on hemodialysis Wednesday, Wednesday, Wednesday. 3. Severe anemia for which he has received at least 3 units of packed RBCs. He is now on Epoetin malini 10,000 units subcutaneously Wednesday, Wednesday, Wednesday. His most recent hemoglobin was 7.7 as of yesterday. 4. Hypertension for which he is now on midodrine 10 mg 3 times a day. I have discontinued his Coreg and hydralazine. His blood pressure seems to be much better controlled. 5. Severe peripheral vascular disease, status post left below-knee amputation. 6. Calciphylaxis with multiple wounds. The tip of his penis and his lower extremities are extremely painful. 7. The patient has abnormal liver enzymes, ascites and required multiple paracenteses; however, his hepatitis serology were negative. His serum ferritin was high, but felt to be acute phase reactant rather than signifying hemochromatosis. 8. Altered mental status, confusion, diaphoresis together with fever for which I pancultured him and started him empirically on Zosyn and vancomycin. So far all his cultures are negative. He was switched to oral Augmentin. 9. Recurrent bouts of loose bowel movement for which I started him empirically on vancomycin 125 mg 4 times a day. His stool for C. diff are still pending. PLAN: To hopefully discharge him home tomorrow with home health. RU DR: Nelson TID: [id number]
[2021-06-29 11:00] VITALS: BP 130/69
--- NOTE | 2021-06-29 12:10 | PDOC ---
DATE OF SERVICE DATE: 06/29/21 TIME: 12:09 SUBJECTIVE ROS Stable , No complaints OBJECTIVE Vital Signs Vital Signs Date Time Temp Pulse Resp B/P (MAP) Pulse Ox O2 Delivery O2 Flow Rate FiO2 06/29/21 11:00 98.4 83 18 130/69 (89) 94 Room Air 98.4 06/28/21 10:31 2.0 I & 0 Intake and Output 06/29/21 07:00 Intake Total 360 ml Balance 360 ml Intake Oral 360 ml # Voids 3 # Bowel Movements 2 PHYSICAL EXAM Physical Exam GENERAL: NAD, HEEN OM moist NECK: Supple. HEART: S1S2, SR with LBBB LUNGS: Clear to auscultation,decreased at bases Non labored ABDOMEN: soft, nontender.Obese NEUROLOGIC: awake, alert,Grossly normal No Rodriguez DERM No Rash DIAGNOSIS/ASSESSMENT Assessment & Plan ESRD- On HD MWF. He has been on Dialysis since 2017. No indication for dialysis today OP unit LE [facility]- Under Dr Godoy's care( [facility]) , per Nursing st aff- chronic non compliance with treatments HyperKalemia life threatening POA - Dialyzed emergently . Anemia- s/p PRBC .Stable Ferritin elevated Continue MINDY NSTEMI: Per cardiology CAD: reported 2 stents placed about a month ago at [facility] Hx of DVT: on home eliquis Covid-19: Not Vaccinated Hx of CVA: MRI in 2016 Scattered tiny foci of restricted diffusion in different vascular territories suggesting embolic acute infarcts. Hx of Hypertension- low BP's since 06/17 , BP improved , Increased Midodrine to 10 mg TID Poorly controlled type 2 diabetes mellitus, diabetic retinopathy. Hypoglycemia- currently Dextrose gtt per primary Ascites and nonalcoholic steatohepatitis - Per [facility] staff he is supposed to be on scheduled paracentesis , non compliant Peritoneal nodularities and greater omental fat induration --can be seen in tae toneal carcinomatosis. Radiology Recommend diagnostic paracentesis cytology. Similar multiple prominent to mildly enlarged upper abdominal, retroperitoneal and bilateral pelvic lymph node indeterminate. Defer to Primary COMMENT/RELEVANT DATA Meds Current Medications Medications (Trade) Dose Ordered Sig/Damien Start Time Stop Time Status Last Admin Dose Admin Albumin Human 200 ml @ 200 mls/hr 1X PRN PRN 06/20/21 08:30 06/20/21 14:29 DC 06/20/21 10:30 200 MLS/HR Amoxicillin/ Clavulanate Potassium (Augmentin 875/ 125mg) 1 tab Q24H 06/27/21 18:00 06/29/21 18:01 06/28/21 17:18 1 TAB Aspirin (Ecotrin) 81 mg DAILYWBKFT 06/19/21 08:00 06/29/21 09:00 81 MG Atorvastatin Calcium (Lipitor) 40 mg QHS 06/15/21 23:00 06/19/21 14:04 DC 06/18/21 21:00 40 MG Bisacodyl (Dulcolax Supp) 10 mg PRN DAILY PRN 06/18/21 14:15 Calcium Acetate (Phoslo) 667 mg TIDWMEALS 06/16/21 08:00 06/29/21 09:00 667 MG Carvedilol (Coreg) 50 mg BIDWMEALS 06/16/21 08:00 06/18/21 10:28 DC 06/16/21 18:18 50 MG Clonidine HCl (Catapres) 0.1 mg PRN Q8HRS PRN 06/15/21 22:30 Clopidogrel Bisulfate (Plavix) 75 mg DAILYWBKFT 06/26/21 08:00 06/29/21 09:00 75 MG Dextrose 500 ml @ 30 mls/hr CONT PRN 06/26/21 18:30 06/26/21 17:30 30 MLS/HR Dextrose (Dextrose 50%-Water Syringe) 25 gm 1X ONCE 06/26/21 11:30 06/26/21 11:31 DC 06/26/21 11:41 25 GM Diphenhydramine HCl (Benadryl) 25 mg PRN 1X PRN 06/17/21 14:30 06/18/21 14:29 DC 06/18/21 12:43 25 MG Docusate Sodium (Colace) 100 mg BID 06/18/21 14:15 06/27/21 10:13 DC 06/23/21 21:31 100 MG Epoetin Kory-epbx (RETACRIT for ESRD PTS) 10,000 unit MoWeFr@2100 06/20/21 21:00 06/27/21 21:48 10,000 UNIT Furosemide (Lasix) 80 mg DAILY 06/16/21 09:00 06/18/21 10:28 DC 06/16/21 09:00 80 MG Gabapentin (Neurontin) 300 mg QHS 06/15/21 23:00 06/28/21 22:03 300 MG Hydralazine HCl (Apresoline) 100 mg BID 06/15/21 23:00 06/18/21 10:28 DC Hydroxyzine HCl (Atarax) 25 mg PRN Q6HRS PRN 06/15/21 22:30 Info (PHARMACY MONITORING -- do not chart) 1 each PRN DAILY PRN 06/27/21 07:45 Insulin Glargine (Lantus Syringe) 16 unit QHS 06/26/21 21:00 06/26/21 18:28 DC Insulin Human Lispro (HumaLOG) 0-7 UNITS TIDWMEALS 06/16/21 08:00 06/29/21 09:06 3 UNITS Lactobacillus Rhamnosus (Culturelle) 1 cap BID 06/23/21 21:00 06/29/21 09:00 1 CAP Lidocaine HCl (Xylocaine 2% Topical 30gm Tube) 1 daljit PRN TID PRN 06/18/21 16:15 06/28/21 22:11 1 DALJIT Midodrine (Proamatine) 5 mg 1X ONCE 06/18/21 15:30 06/18/21 15:31 DC 06/18/21 17:00 5 MG Non-Formulary Medication (Sucroferric Oxyhydroxide (Velphoro)) 1 tab TID 06/16/21 09:00 06/17/21 11:17 DC Norepinephrine Bitartrate 8 mg/ Dextrose 258 ml @ 25.445 mls/ hr CONT PRN 06/18/21 10:45 06/19/21 13:47 DC 06/18/21 11:05 25.445 MLS/HR Ondansetron HCl (Zofran) 4 mg PRN Q4HRS PRN 06/18/21 13:30 06/28/21 03:31 4 MG Oxycodone HCl (Roxicodone) 10 mg PRN Q4HRS PRN 06/18/21 16:15 06/29/21 09:21 10 MG Pantoprazole Sodium (Protonix) 40 mg DAILYAC 06/16/21 07:30 06/29/21 09:00 40 MG Perflutren Protein Type A Microsphe (Optison) 0.66 mg STK-MED ONCE 06/19/21 07:23 06/24/21 12:47 DC Piperacillin Sod/ Tazobactam Sod 2.25 gm/Sodium Chloride 50 ml @ 100 mls/hr Q8HRS 06/22/21 13:00 06/26/21 14:40 DC 06/26/21 13:06 100 MLS/HR Polyethylene Glycol (miraLAX PACKET) 17 gm PRN DAILY PRN 06/27/21 10:15 Quetiapine Fumarate (SEROquel) 25 mg DAILY 06/16/21 09:00 06/29/21 09:00 25 MG Sertraline HCl (Zoloft) 100 mg DAILY 06/16/21 09:00 06/29/21 09:00 100 MG Sodium Chloride (Normal Saline Flush) 10 ml 1X PRN PRN 06/27/21 07:45 06/28/21 07:44 DC Vancomycin HCl (Vanco Per Pharmacy) 1 each PRN DAILY PRN 06/22/21 11:30 06/25/21 11:18 DC 06/24/21 09:40 1 EACH Vancomycin HCl (Vancomycin Random Level) 1 each 1X ONCE 06/24/21 06:00 06/24/21 06:01 DC 06/24/21 07:25 1 EACH Vancomycin HCl (Vancomycin Oral Solution) 125 mg [id number] 06/26/21 13:00 06/29/21 09:00 125 MG Vancomycin HCl 500 mg/Sodium Chloride 100 ml @ 100 mls/hr QMWF 06/25/21 16:00 06/25/21 11:16 DC Vancomycin HCl 2 gm/Sodium Chloride 500 ml @ 250 mls/hr 1X ONCE 06/22/21 13:00 06/22/21 14:59 DC 06/22/21 14:31 250 MLS/HR Vitamin B Complex/ Vitamin C (Yajaira-Allan) 1 tab DAILY 06/16/21 09:00 06/29/21 09:00 1 TAB Lab Laboratory Tests Test 06/28/21 16:10 06/28/21 16:28 06/28/21 20:53 06/29/21 07:40 White Blood Count 9.2 x10^3/uL (4.0-11.0) Red Blood Count 2.89 x10^6/uL (4.30-5.70) Hemoglobin 8.3 g/dL (13.0-17.5) 7.7 g/dL (13.0-17.5) Hematocrit 25.8 % (39.0-53.0) Mean Corpuscular Volume 89 fL (79-100) Mean Corpuscular Hemoglobin 29 pg (25-35) Mean Corpuscular Hemoglobin Concent 32 g/dL (31-37) Red Cell Distribution Width 15.9 % (11.5-14.5) Platelet Count 306 x10^3/uL (140-400) Glucose (Fingerstick) 167 mg/dL (70-99) 176 mg/dL (70-99) Test 06/29/21 07:52 06/29/21 12:04 Glucose (Fingerstick) 185 mg/dL (70-99) 189 mg/dL (70-99) Results All relevant outside records, renal labs, imaging studies, telemetry/EKG's were reviewed. Justicifation of Admission Dx: Justifications for Admission: Justification of Admission Dx: N/A CHANI DANIELLE MD Jun 29, 2021 12:10
[2021-06-29 15:00] VITALS: BP 134/73
[2021-06-29] MEDS: AMOXICILLIN/K CLAV 875/125MG TABLET. PO SCH (17:57)
[2021-06-29 19:50] VITALS: BP 128/66
[2021-06-29] MEDS: GABAPENTIN 300 MG CAPSULE. PO SCH (22:09)
[2021-06-29 23:00] VITALS: BP 131/72
[2021-06-30 03:30] VITALS: BP 130/70
[2021-06-30 07:00] VITALS: BP 123/71
[2021-06-30 07:14] LABS: HEMATOCRIT 25.6 % (39.0-53.0); HEMOGLOBIN 8.1 g/dL (13.0-17.5); RED BLOOD COUNT 2.86 x10^6/uL (4.30-5.70); RED CELL DISTRIBUTION WIDTH 16.6 % (11.5-14.5); WHITE BLOOD COUNT 8.1 x10^3/uL (4.0-11.0)
[2021-06-30 07:37] LABS: ALBUMIN 1.3 g/dL (3.4-5.0); ALBUMIN/GLOBULIN RATIO 0.3 (1.0-1.7); CALCIUM 7.6 mg/dL (8.5-10.1); CREATININE 8.8 mg/dL (0.7-1.3); GFR 6.7; TOTAL BILIRUBIN 0.3 mg/dL (0.2-1.0); TOTAL PROTEIN 5.1 g/dL (6.4-8.2)
[2021-06-30] MEDS ORDERED: DIALYSIS PATIENT. MC PRN ×2 (07:45)
[2021-06-30] MEDS ORDERED: ALBUMIN HUMAN 25% 100 ML IV PRN (07:45)
[2021-06-30] MEDS ORDERED: IV NORMAL SALINE 1000ML BAG 1,000 ML IV PRN ×2 (07:45)
[2021-06-30 08:13] LABS: CALCIUM 7.5 mg/dL (8.5-10.1); CREATININE 8.9 mg/dL (0.7-1.3); GFR 6.6
[2021-06-30] MEDS: LACTOBACILLUS RHAMNOSUS GG 1 CAPSULE. PO SCH (08:29)
[2021-06-30] MEDS: VANCOMYCIN 125 MG/2.5 ML ORAL SOLUTION. PO SCH ×3 (08:29→17:03)
[2021-06-30] MEDS: ASPIRIN ENTERIC COATED 81 MG TABLET.DR. PO SCH (08:30)
[2021-06-30] MEDS: SERTRALINE 50 MG TABLET. PO SCH (08:30)
[2021-06-30] MEDS: CALCIUM ACETATE 667 MG CAPSULE PO SCH ×3 (08:30→17:00)
[2021-06-30] MEDS: MIDODRINE 5 MG TABLET PO SCH ×3 (08:30→17:03)
[2021-06-30] MEDS: QUEtiapine 25 MG TABLET. PO SCH (08:30)
[2021-06-30] MEDS: CLOPIDOGREL BISULFATE 75 MG TABLET PO SCH (08:30)
[2021-06-30] MEDS: FOLIC/VIT B COMP W-C (RENAL) TABLET. PO SCH (08:30)
[2021-06-30] MEDS: PANTOPRAZOLE 40 MG TABLET.DR. PO SCH (08:30)
[2021-06-30] MEDS: INSULIN LISPRO 300 UNITS/3 ML VIAL. SQ SCH ×3 (08:36→17:00)
[2021-06-30] MEDS ORDERED: PANT40TA77 PO (10:01)
[2021-06-30] MEDS ORDERED: OXYC5TAB4 PO (10:01)
[2021-06-30] MEDS ORDERED: MIDO10TA PO (10:01)
--- NOTE | 2021-06-30 10:09 | SNU/HH DC ---
DISCHARGE WITH HOME HEALTH DISCHARGE INFORMATION: Discharge Date: Jun 30, 2021 Final Diagnosis: HYPERKALEMIA Severe anemia ESRD on HD Condition on Discharge: Stable CODE STATUS: Code Status: Full HOME HEALTH: Face to Face: I certify this patient is under my care and that I, or a nurse practitioner or physician's curriculum assistant principal working with me, had a face to face encounter that meets the physician face to face encounter requirements with this patient on 06/30/2021 Medical Complications: Other Nursing Home For: Admin/Educate Injections RN For Eval/Treatment: Yes Physical Therapy For: Evalulation/Treatment Occupational Therapy For: Evaluation/Treatment Pt Meets Homebound Status: Unsteady balance w/ amb, POST DISCHARGE ORDERS: Activity Instructions for Disc: Activity as tolerated Weight Bearing Status after Di: As tolerated DIET AFTER DISCHARGE: Renal Wound/Incision Care: No wound care needed TREATMENT/EQUIPMENT ORDERS: Adaptive Equipment Issued: None CERTIFICATION STATEMENT: Certification Statement: Certification Statement: Based on the above finding, I certify that this patient is confined to the home and needs intermittent fci care, physical therapy and/or speech therapy, or continues to need occupational therapy.~ This patient is under my care, and I have initiated the establishment of the plan of care.~ This patient will be followed by myself or a community physician who will periodically review the plan of care. Home Meds Active Scripts Pantoprazole Sodium (PROTONIX ) 40 Mg Tablet.dr, 40 MG PO DAILYAC for GERD for 30 Days, #30 TAB Prov:JULIO CÉSAR BOYD MD 06/30/21 Midodrine Hcl (MIDODRINE HCL) 10 Mg Tablet, 10 MG PO TID for hypotension for 30 Days, #90 TAB Prov:JULIO CÉSAR BOYD MD 06/30/21 Reported Medications Calcium Acetate (CALCIUM ACETATE) 667 Mg Tablet, 1 TAB PO TID for ESRD for 30 Days, #90 TAB 0 Refills 06/15/21 Sertraline Hcl (ZOLOFT) 100 Mg Tablet, 1 TAB PO DAILY for depression, #30 TAB 5 Refills 06/15/21 Sucroferric Oxyhydroxide (VELPHORO) 500 Mg Tab.chew, 1 TAB PO TID for esrd for 30 Days, #90 TAB 0 Refills 06/15/21 Quetiapine Fumarate (SEROQUEL) 25 Mg Tablet, 1 TAB PO DAILY for depression, #30 TAB 2 Refills 06/15/21 Vit B Cmplx 3/Fa/Vit C/Biotin (ANA-GISELL RX TABLET) 1 Each Tablet, 1 TAB PO DAILY for esrd for 30 Days, #30 TAB 0 Refills 06/15/21 Clopidogrel Bisulfate (CLOPIDOGREL) 75 Mg Tablet, 1 TAB PO DAILY for anticoag, #90 TAB 1 Refill 06/15/21 Pantoprazole Sodium (Pantoprazole Sodium) 40 Mg Tablet.dr, 40 MG PO DAILY for gerd, TAB.SR 06/15/21 Hydroxyzine Hcl (HYDROXYZINE HCL) 25 Mg Tablet, 1 TAB PO PRN Q6HRS PRN for ALLERGIES, #30 TAB 06/15/21 Gabapentin (GABAPENTIN ) 300 Mg Capsule, 300 MG PO TID for NEUROGENIC PAIN, CAP 06/15/21 Furosemide (FUROSEMIDE) 80 Mg Tablet, 1 TAB PO DAILY for HTN, #30 TAB 5 Refills 06/15/21 Clonidine Hcl (CLONIDINE HCL) 0.1 Mg Tablet, 0.1 MG PO PRN Q8HRS PRN for HTN, TAB 06/15/21 Atorvastatin Calcium (ATORVASTATIN CALCIUM) 40 Mg Tablet, 1 TAB PO QHS for HLD, #90 TAB 3 Refills 06/15/21 Aspirin (ASPIRIN EC) 81 Mg Tablet.dr, 1 TAB PO DAILY for heart health, #30 TAB 3 Refills 06/15/21 Discontinued Reported Medications Oxycodone Hcl (OXYCODONE HCL) 5 Mg Capsule, 5 MG PO PRN Q4HRS PRN for PAIN, TAB 0 Refills 06/15/21 Insulin Glargine,Hum.rec.anlog (LANTUS SOLOSTAR) 100 Unit/1 Ml Insuln.pen, 32 UNIT SQ QHS for DM, #15 ML 3 Refills 06/15/21 Hydralazine Hcl (HYDRALAZINE HCL) 100 Mg Tablet, 1 TAB PO BID for HTN, #90 TAB 5 Refills 06/15/21 Carvedilol (CARVEDILOL) 25 Mg Tablet, 50 MG PO BIDWMEALS for CARDIAC, TAB 06/15/21 JULIO CÉSAR BOYD MD Jun 30, 2021 10:08
--- NOTE | 2021-06-30 10:23 | PDOC ---
ELMER ALEXANDER PAPER REWINDER 06/30/21 1023: CARDIO Progress Notes Date and Time Date of Service 06/30/21 Time of Evaluation 1040 Subjective Subjective: No Chest Pain, No shortness of breath, No Palpitations Vitals Vitals Vital Signs Date Time Temp Pulse Resp B/P (MAP) Pulse Ox O2 Delivery O2 Flow Rate FiO2 06/30/21 08:30 81 123/71 06/30/21 08:00 Room Air 2.0 06/30/21 07:00 99.6 18 96 99.6 Weight Weight [ ] Input and Output Intake and Output Intake and Output 06/30/21 07:00 Intake Total 1200 ml Balance 1200 ml Intake Oral 1200 ml # Bowel Movements 5 Laboratory Labs Laboratory Tests Test 06/29/21 12:04 06/29/21 16:46 06/29/21 20:59 06/30/21 06:00 Glucose (Fingerstick) 189 mg/dL (70-99) 235 mg/dL (70-99) 160 mg/dL (70-99) White Blood Count 8.1 x10^3/uL (4.0-11.0) Red Blood Count 2.86 x10^6/uL (4.30-5.70) Hemoglobin 8.1 g/dL (13.0-17.5) Hematocrit 25.6 % (39.0-53.0) Mean Corpuscular Volume 90 fL (79-100) Mean Corpuscular Hemoglobin 28 pg (25-35) Mean Corpuscular Hemoglobin Concent 32 g/dL (31-37) Red Cell Distribution Width 16.6 % (11.5-14.5) Platelet Count 291 x10^3/uL (140-400) Sodium Level 135 mmol/L (136-145) Potassium Level 5.0 mmol/L (3.5-5.1) Chloride Level 98 mmol/L (98-107) Carbon Dioxide Level 27 mmol/L (21-32) Anion Gap 10 (6-14) Blood Urea Nitrogen 37 mg/dL (8-26) Creatinine 8.9 mg/dL (0.7-1.3) Estimated GFR (Cockcroft-Gault) 6.6 BUN/Creatinine Ratio 4 (6-20) Glucose Level 184 mg/dL (70-99) Calcium Level 7.5 mg/dL (8.5-10.1) Phosphorus Level 7.0 mg/dL (2.6-4.7) Total Bilirubin 0.3 mg/dL (0.2-1.0) Aspartate Amino Transf (AST/SGOT) 16 U/L (15-37) Alanine Aminotransferase (ALT/SGPT) 24 U/L (16-63) Alkaline Phosphatase 158 U/L (46-116) Total Protein 5.1 g/dL (6.4-8.2) Albumin 1.3 g/dL (3.4-5.0) Albumin/Globulin Ratio 0.3 (1.0-1.7) Test 06/30/21 08:05 Glucose (Fingerstick) 161 mg/dL (70-99) Physical Exam HEENT: Neck Supple W Full Motion Chest: Symmetric LUNGS: Other (diminished) Heart: RRR (intermittent V pacing with underlying SR) Abdomen: Soft N/T Extremities: Other (anasarca) Neurology: alert, oriented, follow commands Assessment Assessment 1. Severe anemia; s/p transfusion. no obvious bleeding 2. NSTEMI: possibly demand mediated with multiple culprits CP free. EF and WM nml per TTE 3. Shock: multifactorial. BP remains adequate 4. ESRD with severe hyperkalemia: due to missed HD 5. DM2: per PCP 6. CAD: [facility] records reviewed and noted last [facility] 01/2021 at [facility] but no intervention at that time and has had stent to RCA before. No evidence of recent stent placement 7. Hx of DVT: on home eliquis 8. H/o ascites requiring paracentesis 9. Protein malnutrition 10. Hx of CVA: MRI in 2016 Scattered tiny foci of restricted diffusion in different vascular territories suggesting embolic acute infarcts. 11. HLP: on statin 12. Acute on chronic diastolic CHF: appears compensated. Fluid offloading via HD 12: PPM in situ: leadless with intermittent V pacing Justicifation of Admission Dx: Justifications for Admission: Justification of Admission Dx: N/A TJ PRESTON MD 06/30/21 8647: CARDIO Progress Notes Assessment Assessment Patient seen and evaluated. I agree with our nurse practitioners assessment and plan. Severe anemia; transfused. Morning H&H of 8.1 and 25.6. NSTEMI: possibly demand mediated with multiple culprits CP free. EF and WM nml per TTE ESRD with severe hyperkalemia: due to missed HD. Continuing hemodialysis as per the renal service. DM2: per PCP CAD: [facility] records reviewed and noted last [facility] 01/2021 at [facility] but no intervention at that time and has had stent to RCA before. No evidence of recent stent placement Hx of DVT: Previously on home Eliquis H/o ascites requiring paracentesis Hx of CVA: MRI in 2016 Scattered tiny foci of restricted diffusion in different vascular territories suggesting embolic acute infarcts. HLP: on statin Acute on chronic diastolic CHF: appears compensated. Fluid management via HD PPM in situ: leadless with intermittent V pacing ELMER ALEXANDER APRN Jun 30, 2021 10:23 TJ PRESTON MD Jun 30, 2021 15:57
--- NOTE | 2021-06-30 10:25 | PDOC ---
Date of Service: DATE: 06/30/21 TIME: 10:21 Objective: Objective: No GI concerns per nurse except "plays in poop," refusing to go to facility and wants to go home. 5 stools charted, C Diff sent yesterday, getting PO vanco. Vital Signs: Vital Signs Date Time Temp Pulse Resp B/P (MAP) Pulse Ox O2 Delivery O2 Flow Rate FiO2 06/30/21 08:30 81 123/71 06/30/21 08:00 Room Air 2.0 06/30/21 07:00 99.6 18 96 99.6 Labs: Laboratory Tests Test 06/29/21 12:04 06/29/21 16:46 06/29/21 20:59 06/30/21 06:00 Glucose (Fingerstick) 189 mg/dL 235 mg/dL 160 mg/dL White Blood Count 8.1 x10^3/uL Red Blood Count 2.86 x10^6/uL Hemoglobin 8.1 g/dL Hematocrit 25.6 % Mean Corpuscular Volume 90 fL Mean Corpuscular Hemoglobin 28 pg Mean Corpuscular Hemoglobin Concent 32 g/dL Red Cell Distribution Width 16.6 % Platelet Count 291 x10^3/uL Sodium Level 135 mmol/L Potassium Level 5.0 mmol/L Chloride Level 98 mmol/L Carbon Dioxide Level 27 mmol/L Anion Gap 10 Blood Urea Nitrogen 37 mg/dL Creatinine 8.9 mg/dL Estimated GFR (Cockcroft-Gault) 6.6 BUN/Creatinine Ratio 4 Glucose Level 184 mg/dL Calcium Level 7.5 mg/dL Phosphorus Level 7.0 mg/dL Total Bilirubin 0.3 mg/dL Aspartate Amino Transf (AST/SGOT) 16 U/L Alanine Aminotransferase (ALT/SGPT) 24 U/L Alkaline Phosphatase 158 U/L Total Protein 5.1 g/dL Albumin 1.3 g/dL Albumin/Globulin Ratio 0.3 Test 06/30/21 08:05 Glucose (Fingerstick) 161 mg/dL PE: GEN: dialyzing in COVID isolation - visual exam LUNGS: room air HEART: RR per chart ABD: large/stable NEURO/PSYCH: sleeping A/P: COVID, CHF, ESRD, non-compliance ACD, h/o stercoral rectal ulcer, ascites w/ past paracentesis Loose stools -- C Diff pending but on vanco. DC per primary. Justicifation of Admission Dx: Justifications for Admission: Justification of Admission Dx: N/A NATASHA MANZO Jun 30, 2021 10:25
[2021-06-30 11:00] VITALS: BP 125/65
--- NOTE | 2021-06-30 11:54 | PDOC ---
Renal-Progress Notes Subjective Notes Notes NO NEW COMPLAINTS History of Present Illness Hx of present illness STABLE Vitals Vitals Vital Signs Date Time Temp Pulse Resp B/P (MAP) Pulse Ox O2 Delivery O2 Flow Rate FiO2 06/30/21 08:30 81 123/71 06/30/21 08:00 Room Air 2.0 06/30/21 07:00 99.6 18 96 99.6 Weight Weight [ ] I.O. Intake and Output Intake and Output 06/30/21 07:00 Intake Total 1200 ml Balance 1200 ml Intake Oral 1200 ml # Bowel Movements 5 Labs Labs Laboratory Tests Test 06/29/21 12:04 06/29/21 16:46 06/29/21 20:59 06/30/21 06:00 Glucose (Fingerstick) 189 mg/dL (70-99) 235 mg/dL (70-99) 160 mg/dL (70-99) White Blood Count 8.1 x10^3/uL (4.0-11.0) Red Blood Count 2.86 x10^6/uL (4.30-5.70) Hemoglobin 8.1 g/dL (13.0-17.5) Hematocrit 25.6 % (39.0-53.0) Mean Corpuscular Volume 90 fL (79-100) Mean Corpuscular Hemoglobin 28 pg (25-35) Mean Corpuscular Hemoglobin Concent 32 g/dL (31-37) Red Cell Distribution Width 16.6 % (11.5-14.5) Platelet Count 291 x10^3/uL (140-400) Sodium Level 135 mmol/L (136-145) Potassium Level 5.0 mmol/L (3.5-5.1) Chloride Level 98 mmol/L (98-107) Carbon Dioxide Level 27 mmol/L (21-32) Anion Gap 10 (6-14) Blood Urea Nitrogen 37 mg/dL (8-26) Creatinine 8.9 mg/dL (0.7-1.3) Estimated GFR (Cockcroft-Gault) 6.6 BUN/Creatinine Ratio 4 (6-20) Glucose Level 184 mg/dL (70-99) Calcium Level 7.5 mg/dL (8.5-10.1) Phosphorus Level 7.0 mg/dL (2.6-4.7) Total Bilirubin 0.3 mg/dL (0.2-1.0) Aspartate Amino Transf (AST/SGOT) 16 U/L (15-37) Alanine Aminotransferase (ALT/SGPT) 24 U/L (16-63) Alkaline Phosphatase 158 U/L (46-116) Total Protein 5.1 g/dL (6.4-8.2) Albumin 1.3 g/dL (3.4-5.0) Albumin/Globulin Ratio 0.3 (1.0-1.7) Test 06/30/21 08:05 Glucose (Fingerstick) 161 mg/dL (70-99) Review of Systems Constitutional: yes: alert, oriented Ears/Nose/Throat: Yes: no symptom reported Eyes: Yes: no symptom reported Pulmonary: Yes no symptom reported Cardiovascular: Yes no symptom reported Gastrointestional: Yes: no symptom reported Genitourinary: Yes: no symptom reported Musculoskeletal: Yes: no symptom reported Skin: Yes no symptom reported Psychiatric/Neurological: Yes: no symptom reported Endocrine: Yes: no symptom reported Physical Exam Skin: warm Respiratory: bilateral CTA Heart: S1S2 Abdomen: soft, bowel sounds present Genitourinary: bladder flat Extremities: pulses present Neurology: alert, oriented, follow commands Assessment Assessment IMP [id number] ARM AVF NSTEMI-CAD HX ANEMIA ANASARCA-BETTER DM II HTN HX COVID 19 POS ACUTE CHRONIC CHF-DIASTOLIC PLAN HD TODAY UF TO TW MINDY NEEDED ENC COMPLIANCE CAROLYN MELGAR MD Jun 30, 2021 11:54
--- NOTE | 2021-06-30 14:30 | NUR ---
Discharge Note: ADRIANA GARLAND Discharge instructions and discharge home medications reviewed with Patient and a copy given. All questions have been answered and understanding verbalized. The following instructions and handouts were given: d/c instructions Discontinued lines and drains: Peripheral IV intact. Patient discharged to Home w/services with Ambulance Personnel via Stretcher
[2021-06-30 15:00] VITALS: BP 146/72
[2021-06-30 17:03] VITALS: BP 146/72
== END 2021-06-30 17:58 | disposition home health service (06) | DRG 280 ==
LOC: 1 WEST ICU 14:00 → 5 SOUTH 22:29 → 1 WEST ICU 06-18 10:00 → 6 SOUTH 06-18 21:10 → 5 NORTH 06-21 19:28
PROVIDERS: ADMIT Internal Medicine; ATTEND Internal Medicine
PROC: 30233N1 Transfusion of Nonautologous Red Blood Cells into Peripheral Vein, Percutaneous Approach (ICD-10-PCS; principal; 2021-06-17)
PROC: 5A1D70Z Performance of Urinary Filtration, Intermittent, Less than 6 Hours Per Day (ICD-10-PCS; 2021-06-17)
PROC: 5A1D70Z Performance of Urinary Filtration, Intermittent, Less than 6 Hours Per Day (ICD-10-PCS; 2021-06-18)
PROC: 5A1D70Z Performance of Urinary Filtration, Intermittent, Less than 6 Hours Per Day (ICD-10-PCS; 2021-06-20)
PROC: 5A1D70Z Performance of Urinary Filtration, Intermittent, Less than 6 Hours Per Day (ICD-10-PCS; 2021-06-23)
PROC: 5A1D70Z Performance of Urinary Filtration, Intermittent, Less than 6 Hours Per Day (ICD-10-PCS; 2021-06-27)
PROC: 5A1D70Z Performance of Urinary Filtration, Intermittent, Less than 6 Hours Per Day (ICD-10-PCS; 2021-06-30)
DX: I13.2 Hypertensive heart and chronic kidney disease with heart failure and with stage 5 chronic kidney disease, or end stage renal disease (principal); I21.4 Non-ST elevation (NSTEMI) myocardial infarction; N18.6 End stage renal disease; I50.33 Acute on chronic diastolic (congestive) heart failure; U07.1 COVID-19; D68.9 Coagulation defect, unspecified; E46 Unspecified protein-calorie malnutrition; R18.8 Other ascites; R57.9 Shock, unspecified; E87.5 Hyperkalemia; D64.9 Anemia, unspecified; E04.2 Nontoxic multinodular goiter; E11.22 Type 2 diabetes mellitus with diabetic chronic kidney disease; E11.319 Type 2 diabetes mellitus with unspecified diabetic retinopathy without macular edema; E11.42 Type 2 diabetes mellitus with diabetic polyneuropathy; E11.43 Type 2 diabetes mellitus with diabetic autonomic (poly)neuropathy; E11.51 Type 2 diabetes mellitus with diabetic peripheral angiopathy without gangrene; E11.649 Type 2 diabetes mellitus with hypoglycemia without coma; E11.65 Type 2 diabetes mellitus with hyperglycemia; E78.5 Hyperlipidemia, unspecified; I25.10 Atherosclerotic heart disease of native coronary artery without angina pectoris; E83.59 Other disorders of calcium metabolism; K31.84 Gastroparesis; K57.90 Diverticulosis of intestine, part unspecified, without perforation or abscess without bleeding; K59.00 Constipation, unspecified; K76.9 Liver disease, unspecified; Z78.9 Other specified health status; Z79.01 Long term (current) use of anticoagulants; Z79.02 Long term (current) use of antithrombotics/antiplatelets; Z79.899 Other long term (current) drug therapy; Z82.49 Family history of ischemic heart disease and other diseases of the circulatory system; Z82.5 Family history of asthma and other chronic lower respiratory diseases; Z83.3 Family history of diabetes mellitus; Z86.718 Personal history of other venous thrombosis and embolism; Z86.73 Personal history of transient ischemic attack (TIA), and cerebral infarction without residual deficits; Z89.512 Acquired absence of left leg below knee; Z91.15 Patient's noncompliance with renal dialysis; Z91.19 Patient's noncompliance with other medical treatment and regimen; Z95.0 Presence of cardiac pacemaker; Z95.5 Presence of coronary angioplasty implant and graft; Z99.2 Dependence on renal dialysis; Z88.8 Allergy status to other drugs, medicaments and biological substances; Z60.2 Problems related to living alone; Z74.01 Bed confinement status; Z99.3 Dependence on wheelchair
CPT/HCPCS: 99285; C8924; 36415; 36430; 71045; 80048; 80053; 80061; 80076; 80202; 82140; 82728; 82947; 82962; 83540; 83550; 83605; 84100; 84145; 84443; 84484; 85014; 85018; 85025; 85027; 85610; 86705; 86709; 86803; 86850; 86900; 86901; 86920; 87340; 87493; 93005; 93970; 93976; J1815; J2405; J2543; J3370; J3490; J7040; J7060; P9016; P9046; Q9956; 97110-GO; 97110-GP; 97530-GO; 97530-GP; 97535-GO; G0378; Q0163

== ENCOUNTER 2021-08-30 09:22 | Inpatient (IN) | payer OTHER, MEDICAID ==
[~2021-08-30] VITALS: Ht 185.4 cm; Wt 115.7 kg
[~2021-08-30 09:22] MED LIST changes: +ACET325T21 PO; +AMOX1TAB58 PO; +ASCO500C9 PO; +ASPI-886 PO; +ATOR40TA59 PO; +CALC667T4 PO; +CARV25TA2 PO; +CLON0.1T PO; +CLOP75TA PO; +FOLI0.8T5 PO; +FURO80TA3 PO; +GABA300C18 PO; +HYDR100T24 PO; +HYDR25TA PO; +INSU100I13 SQ; +INSU100V8 SQ; +LEVO100T5 PO; +MIDO10TA PO; +MULT-114 PO; +ONDA4TAB12 PO; +OXYC1TAB15 PO; +OXYC5CAP PO; +OXYC5TAB4 PO; +PANT40TA6 PO; +PANT40TA77 PO; +QUET25TA5 PO; +SENN1TAB62 PO; +SERT100T PO; +SEVE800T9 PO; +SUCR500T PO; +VIT1TABL71 PO
--- NOTE | 2021-08-30 10:19 | RAD ---
XR CHEST 1V Clinical History: Reason: weakness / Spl. Instructions: / History: Technique: AP view of the chest was obtained at 08/30/2021 10:02 AM. Comparison: August 11, 2021. Findings: The heart is borderline enlarged. There is reticular nodular opacities throughout the right lung and there is diffuse linear reticular opacities in the left. This blunting of the left costophrenic angle . Impression: Mild left effusion and bilateral infiltrates suggesting atypical pneumonia. This appears similar to t he prior study. Electronically signed by: Rick Villarreal III, MD (08/30/2021 10:17 AM) [facility]
--- NOTE | 2021-08-30 10:26 | PHYS DOC ---
Past Medical History Past Medical History: Renal Failure Additional Past Medical Histor: NSTEMI, CHRONIC RESP FAIL, GASTROPARESIS, MRSA, MIKHAIL, ASCITES, PVD,ULCE Past Surgical History: Pacemaker, Other Additional Past Surgical Histo: stent placement x2, L eye, L BKA, AV FISTULA DIOR,RT TOES AMPUTATION X 5 Smoking Status: Never Smoker Alcohol Use: None General Adult EDM: Chief Complaint: WEAKNESS/GENERALIZED HPI: HPI: Patient is a 40 year old shelter patient who has dialysis last dialysis on Wednesday comes in with generalized weakness and palpitations. Patient is a poor historian. Patient recently had a right foot amputation but does not recall when or where he had it done. Patient denies any chest pain or shortness of breath. Denies any fevers or chills. Reports feeling lightheaded denies vertigo. Denies any visual changes denies any focal weakness denies any numbness or tingling. EMS reports that when picking the patient up the patient had poor pulses and had 2 runs of V. tach. Patient did not lose consciousness Review of Systems: Review of Systems: Constitutional: Denies fever or chills. Generalized weakness Eyes: Denies change in visual acuity. HENT: Denies nasal congestion or sore throat. Respiratory: Denies cough or shortness of breath. Cardiovascular: Palpitations, lightheadedness denies chest pain or edema. GI: Denies abdominal pain, nausea, vomiting, bloody stools or diarrhea. : Denies dysuria. Musculoskeletal: Denies back pain or joint pain. Integument: Denies rash. Neurologic: Denies headache, focal weakness or sensory changes. Endocrine: Denies polyuria or polydipsia. Lymphatic: Denies swollen glands. Psychiatric: Denies depression or anxiety. Heart Score: C/O Chest Pain: No Risk Factors: Risk Factors: DM, Current or recent (<one month) smoker, HTN, HLP, family history of CAD, obesity. Risk Scores: Score 0 - 3: 2.5% MACE over next 6 weeks - Discharge Home Score 4 - 6: 20.3% MACE over next 6 weeks - Admit for Clinical Observation Score 7 - 10: 72.7% MACE over next 6 weeks - Early Invasive Strategies Allergies: Allergies: Allergies Coded Allergies Type Severity Reaction Last Updated Verified metoclopramide Allergy Intermediate 08/19/21 Yes Physical Exam: PE: Constitutional: Ill-appearing poor historian HENT: Normocephalic, atraumatic, bilateral external ears normal, oropharynx moist, no oral exudates, nose normal. Eyes: PERRLA, EOMI, conjunctiva normal, no discharge. Neck: Normal range of motion, no tenderness, supple, no stridor. Cardiovascular:Heart rate regular rhythm, no murmur [] Lungs & Thorax: Bilateral breath sounds clear to auscultation [] Abdomen: Bowel sounds normal, soft, no tenderness, no masses, no pulsatile masses. Skin: Incision of the amputation on his right foot appears to be clean dry and intact with sutures in place. Mild erythema at the site of incision patient picking with multiple stages of healing on the right upper arm. Back: No tenderness, no CVA tenderness. [] Extremities: No tenderness, no cyanosis, no clubbing, ROM intact, no edema. Neurologic: Acute and oriented to self. Psychologic: Affect normal, judgement normal, mood normal. Current Patient Data: Vital Signs: Vital Signs Date Time Temp Pulse Resp B/P (MAP) Pulse Ox O2 Delivery O2 Flow Rate FiO2 08/30/21 09:22 98.6 105 14 91/60 (70) 93 Room Air 98.6 EKG: EKG: Patient is EKG shows a heart rate in 98 with a normal sinus rhythm. Nonspecific ischemic changes. QTC of 495 Radiology/Procedures: Radiology/Procedures: [] Impression: XR CHEST 1V Clinical History: Reason: weakness / Spl. Instructions: / History: Technique: AP view of the chest was obtained at 08/30/2021 10:02 AM. Comparison: August 11, 2021. Findings: The heart is borderline enlarged. There is reticular nodular opacities throughout the right lung and there is diffuse linear reticular opacities in the left. This blunting of the left costophrenic angle. Impression: Mild left effusion and bilateral infiltrates suggesting atypical pneumonia. This appears similar to the prior study. Electronically signed by: Rick Villarreal III, MD (08/30/2021 10:17 AM) [facility] Course & Med Decision Making: Course & Med Decision Making Pertinent Labs and Imaging studies reviewed. (See chart for details) Patient will receive dialysis before transfusion. Last visit patient on 08/25/2021 had a hemoglobin 8.3 and today 7.0. Patient reported to have 2 runs of V. tach in the shelter facility with a thready pulse. Patient case discussed with hospitalist who accepts the patient Ann Disclaimer: Ann Disclaimer: This electronic medical record was generated, in whole or in part, using a voice recognition dictation system. Departure Departure Referrals: SOY MAYER MD (PCP) MICHELLE MON DO Aug 30, 2021 10:26
[2021-08-30 11:05] LABS: CREATININE 4.6 mg/dL (0.7-1.3); GFR 14.2; POTASSIUM 3.6 mmol/L (3.5-5.1)
[2021-08-30 11:10] LABS: PROTHROMBIN TIME PATIENT 15.1 SEC (11.7-14.0)
[2021-08-30 11:11] LABS: ALBUMIN 1.7 g/dL (3.4-5.0); ALBUMIN/GLOBULIN RATIO 0.3 (1.0-1.7); MAGNESIUM 1.8 mg/dL (1.8-2.4); TOTAL BILIRUBIN 0.5 mg/dL (0.2-1.0); TOTAL PROTEIN 7.2 g/dL (6.4-8.2)
[2021-08-30 15:11] LABS: BASO # 0.1 x10^3/uL (0.0-0.2); BASO % 1 % (0-3); EOS # 0.2 x10^3/uL (0.0-0.7); EOS % 3 % (0-3); LYMPH # 0.8 x10^3/uL (1.0-4.8); LYMPH % 13 % (24-48); MEAN CORPUSCULAR HEMOGLOBIN 29 pg (25-35); MEAN CORPUSCULAR HGB CONC 32 g/dL (31-37); MEAN CORPUSCULAR VOLUME 91 fL (79-100); MONO # 0.9 x10^3/uL (0.0-1.1); MONO % 14 % (0-9); NEUT # 4.4 x10^3/uL (1.8-7.7); NEUT % 69 % (31-73); PLATELET COUNT 257 x10^3/uL (140-400); RED BLOOD COUNT 2.43 x10^6/uL (4.30-5.70); RED CELL DISTRIBUTION WIDTH 20.4 % (11.5-14.5); WHITE BLOOD COUNT 6.5 x10^3/uL (4.0-11.0)
--- NOTE | 2021-08-30 15:43 | PDOC1 ---
History and Physical Date of Admission Date of Admission DATE: 08/30/21 TIME: 15:41 Identification/Chief Complaint Chief Complaint Palpitations, cough, shortness of breath Source Source: Patient History of Present Illness History of Present Illness Mr Esparza is a 40-year-old male who has been on dialysis for 4 years, end-stage renal disease, prior cerebrovascular accident; peripheral neuropathy; congestive heart failure; hyperlipidemia; hypertension; asthma; gastroesophageal reflux disease; s/p left BKA; history of depression; diabetes who is a long-term SNF resident who returns to ED from his SNF for concerns for arrhythmia, not feeling well, and anemia with a hemoglobin of 7 and reportedly had 3 runs of vtach reportedly at his facility. Patient notes that he was actually told his heart rate was slow. EKG by my interpretation sinus rhythm rate of [address] depressions in V3 V4 similar to prior and T WI in lead I and aVL similar to prior. QTc 495 Labs with WBC 6.5, Hb 7, platelets 257, NA 135, K3.6, BUN 43, CR 4.6, glucose 147, calcium 9, phosphorus 5, mag 1.8 albumin 1.7, lipase 107 otherwise LFTs within normal laboratory limits, high-sensitivity troponin is 214 and repeat is 237. Past Medical History Cardiovascular: CAD, HTN CENTRAL NERVOUS SYSTEM: Periperal neuropathy Heme/Onc: Anemia NOS, Other Renal/: Chronic renal failure Endocrine: Diabetes Past Surgical History Past Surgical History: Other Family History Family History: Heart Disease Social History Smoke: No ALCOHOL: none Drugs: None Current Medications Current Medications Active Scripts Active Lantus (Insulin Glargine,Hum.rec.anlog) 100 Unit/1 Ml Vial 10 Unit SQ QHS 30 Days Percocet 5-325 Mg Tablet (Oxycodone/Acetaminophen) 1 Each Tablet 1 Tab PO PRN Q6HRS PRN 6 Days Novolog Flexpen (Insulin Aspart) 100 Unit/1 Ml Insuln.pen 0-9 Unit SQ TIDAC 30 Days Augmentin 500-125 Tablet (Amoxicillin/Potassium Clav) 1 Each Tablet 1 Tab PO DAILY 10 Days Gabapentin (Gabapentin) 300 Mg Capsule 300 Mg PO QHS 30 Days Midodrine Hcl 10 Mg Tablet 10 Mg PO TID 30 Days Reported Vitamin C (Ascorbic Acid) 500 Mg Capsule 500 Mg PO DAILY Renvela (Sevelamer Carbonate) 800 Mg Tablet 1 Tab PO TID 30 Days Senna Plus Tablet (Sennosides/Docusate Sodium) 1 Each Tablet 2 Tab PO BID 14 Days Ondansetron Odt (Ondansetron) 4 Mg Tab.rapdis 1 Tab PO PRN Q6HRS PRN Multivitamins With Minerals (Multivitamin With Minerals) 1 Each Tablet 1 Tab PO DAILY 30 Days Levothyroxine Sodium 100 Mcg Tablet 1 Tab PO DAILY Folic Acid 0.8 Mg Tablet 1 Mg PO DAILY Acetaminophen 325 Mg Tablet 1 Tab PO PRN Q6HRS PRN 24 Days Zoloft (Sertraline Hcl) 100 Mg Tablet 1 Tab PO DAILY Seroquel (Quetiapine Fumarate) 25 Mg Tablet 1 Tab PO HS Yajaira-Allan Rx Tablet (Vit B Cmplx 3/Fa/Vit C/Biotin) 1 Each Tablet 1 Tab PO DAILY 30 Days Clopidogrel (Clopidogrel Bisulfate) 75 Mg Tablet 1 Tab PO DAILY Pantoprazole Sodium 40 Mg Tablet.dr 40 Mg PO BID Hydroxyzine Hcl 25 Mg Tablet 1 Tab PO PRN Q8HRS PRN Furosemide 80 Mg Tablet 1 Tab PO DAILY Atorvastatin Calcium 40 Mg Tablet 1 Tab PO QHS Aspirin Ec (Aspirin) 81 Mg Tablet.dr 1 Tab PO DAILY Allergies Allergies: Coded Allergies: metoclopramide (Verified Allergy, Intermediate, 08/19/21) ROS General: YES: Fatigue, Malaise, Appetite; No: Chills, Night Sweats, Other PSYCHOLOGICAL ROS: YES: Anxiety, Memory difficulties; No: Behavioral Disorder, Concentration difficultie, Decreased libido, Depress ion, Disorientation, Hallucinations, Hostility, Irritablity, Mood Swings, Obsessive thoughts, Physical abuse, Sexual abuse, Sleep disturbances, Suicidal ideation, Other Eyes: Yes Decreased vision; No Blurry vision, No Double vision, No Dry eyes, No Excessive tearing, No Eye Pain, No Itchy Eyes, No Loss of vision, No Photophobia, No Scotomata, No Uses contacts, No Uses glasses, No Other HEENT: No: Heacaches, Visual Changes, Hearing change, Nasal congestion, Nasal discharge, Oral lesions, Sinus pain, Sore Throat, Epistaxis, Sneezing, Snoring, Tinnitus, Vertigo, Vocal changes, Other ALLERGY AND IMMUNOLOGY: No: Hives, Insect Bite Sensitivity, Itchy/Watery Eyes, Nasal Congestion, Post Nasal Drip, Seasonal Allergies, Other Hematological and Lymphatic: No: Bleeding Problems, Blood Clots, Blood Transfusions, Brusing, Night Sweats, Pallor, Swollen Lymph Nodes, Other ENDOCRINE: No: Breast Changes, Galactorrhea, Hair Pattern Changes, Hot Flashes, Malaise/lethargy, Mood Swings, Palpitations, Polydipsia/polyuria, Skin Changes, Temperature Intolerance, Unexpected Weight Changes, Other Breast: No New/Changing Breast Lumps, No Nipple changes, No Nipple discharge, No Other Respiratory: YES: Shortness of breath; No: Cough, Hemoptysis, Orthopnea, Pleuritic Pain, SOB with excertion, Sputum Changes, Stridor, Tachypnea, Wheezing, Other Cardiovascular: No Chest Pain, No Palpitations, No Orthopnea, No Paroxysmal Noc. Dyspnea, No Edema, No Lt Headedness, No Other Gastrointestinal: Yes Abdominal Pain; No Nausea, No Vomiting, No Diarrhea, No Constipation, No Melena, No Hematochezia, No Other Genitourinary: No Dysuria, No Frequency, No Incontinence, No Hematuria, No Retention, No Discharge, No Urgency, No Pain, No Flank Pain, No Other, No , No , No , No , No , No , No Musculoskeletal: Yes Gait Disturbance, Yes Muscular Weakness; No Joint Pain, No Joint Stiffness, No Joint Swelling, No Muscle Pain, No Pain In:, No Swelling In:, No Other Neurological: No Behavorial Changes, No Bowel/Bladder ControlChng, No Confusion, No Dizziness, No Gait Disturbance, No Headaches, No Impaired Coord/balance, No Memory Loss, No Numbness/Tingling, No Seizures, No Speech Problems, No Tremors, No Visual Changes, No Weakness, No Other Skin: Yes Rash, Yes Skin Lesion Changes; No Dry Skin, No Eczema, No Hair Changes, No Lumps, No Mole Changes, No Mottling, No Nail Changes, No Pruritus, No Other, No Acne Physical Exam General: Alert, Cooperative, mild distress HEENT: Atraumatic, PERRLA, EOMI, Mucous membr. moist/pink Lungs: Other (Decreased bibasilar air movement) Heart: S1S2, RRR, no thrills, no rubs, no gallops, no murmurs Abdomen: Normal bowel sounds, Soft, No tenderness, No masses, Other (Positive fluid wave, splenomegaly) Rectal Exam: not examined Skin: Other (Sacral ulcer, right heel ulcer, right TMA site with sutures intact) Neuro: Reflexes 2+ Psych/Mental Status: Mental status NL, Mood NL Vitals Vitals Vital Signs Date Time Temp Pulse Resp B/P (MAP) Pulse Ox O2 Delivery O2 Flow Rate FiO2 08/30/21 11:40 98.6 87 16 120/75 (90) 94 Nasal Cannula 2.0 98.6 Labs Labs Laboratory Tests Test 08/30/21 10:22 08/30/21 10:30 08/30/21 13:50 SARS-CoV-2 Antigen (Rapid) Negative (NEGATIVE) Prothrombin Time 15.1 SEC (11.7-14.0) Prothromb Time International Ratio 1.2 (0.8-1.1) Sodium Level 135 mmol/L (136-145) Potassium Level 3.6 mmol/L (3.5-5.1) Chloride Level 92 mmol/L (98-107) Carbon Dioxide Level 34 mmol/L (21-32) Anion Gap 9 (6-14) Blood Urea Nitrogen 43 mg/dL (8-26) Creatinine 4.6 mg/dL (0.7-1.3) Estimated GFR (Cockcroft-Gault) 14.2 BUN/Creatinine Ratio 9 (6-20) Glucose Level 147 mg/dL (70-99) Calcium Level 9.0 mg/dL (8.5-10.1) Phosphorus Level 5.0 mg/dL (2.6-4.7) Magnesium Level 1.8 mg/dL (1.8-2.4) Total Bilirubin 0.5 mg/dL (0.2-1.0) Aspartate Amino Transf (AST/SGOT) 11 U/L (15-37) Alanine Aminotransferase (ALT/SGPT) 6 U/L (16-63) Alkaline Phosphatase 115 U/L (46-116) Troponin I High Sensitivity 214 ng/L (4-75) 217 ng/L (4-75) Total Protein 7.2 g/dL (6.4-8.2) Albumin 1.7 g/dL (3.4-5.0) Albumin/Globulin Ratio 0.3 (1.0-1.7) Lipase 107 U/L (73-393) White Blood Count 6.5 x10^3/uL (4.0-11.0) Red Blood Count 2.43 x10^6/uL (4.30-5.70) Hemoglobin 7.0 g/dL (13.0-17.5) Hematocrit 22.0 % (39.0-53.0) Mean Corpuscular Volume 91 fL (79-100) Mean Corpuscular Hemoglobin 29 pg (25-35) Mean Corpuscular Hemoglobin Concent 32 g/dL (31-37) Red Cell Distribution Width 20.4 % (11.5-14.5) Platelet Count 257 x10^3/uL (140-400) Neutrophils (%) (Auto) 69 % (31-73) Lymphocytes (%) (Auto) 13 % (24-48) Monocytes (%) (Auto) 14 % (0-9) Eosinophils (%) (Auto) 3 % (0-3) Basophils (%) (Auto) 1 % (0-3) Neutrophils # (Auto) 4.4 x10^3/uL (1.8-7.7) Lymphocytes # (Auto) 0.8 x10^3/uL (1.0-4.8) Monocytes # (Auto) 0.9 x10^3/uL (0.0-1.1) Eosinophils # (Auto) 0.2 x10^3/uL (0.0-0.7) Basophils # (Auto) 0.1 x10^3/uL (0.0-0.2) Laboratory Tests Test 08/30/21 10:22 08/30/21 10:30 08/30/21 13:50 SARS-CoV-2 Antigen (Rapid) Negative (NEGATIVE) Prothrombin Time 15.1 SEC (11.7-14.0) Prothromb Time International Ratio 1.2 (0.8-1.1) Sodium Level 135 mmol/L (136-145) Potassium Level 3.6 mmol/L (3.5-5.1) Chloride Level 92 mmol/L (98-107) Carbon Dioxide Level 34 mmol/L (21-32) Anion Gap 9 (6-14) Blood Urea Nitrogen 43 mg/dL (8-26) Creatinine 4.6 mg/dL (0.7-1.3) Estimated GFR (Cockcroft-Gault) 14.2 BUN/Creatinine Ratio 9 (6-20) Glucose Level 147 mg/dL (70-99) Calcium Level 9.0 mg/dL (8.5-10.1) Phosphorus Level 5.0 mg/dL (2.6-4.7) Magnesium Level 1.8 mg/dL (1.8-2.4) Total Bilirubin 0.5 mg/dL (0.2-1.0) Aspartate Amino Transf (AST/SGOT) 11 U/L (15-37) Alanine Aminotransferase (ALT/SGPT) 6 U/L (16-63) Alkaline Phosphatase 115 U/L (46-116) Troponin I High Sensitivity 214 ng/L (4-75) 217 ng/L (4-75) Total Protein 7.2 g/dL (6.4-8.2) Albumin 1.7 g/dL (3.4-5.0) Albumin/Globulin Ratio 0.3 (1.0-1.7) Lipase 107 U/L (73-393) White Blood Count 6.5 x10^3/uL (4.0-11.0) Red Blood Count 2.43 x10^6/uL (4.30-5.70) Hemoglobin 7.0 g/dL (13.0-17.5) Hematocrit 22.0 % (39.0-53.0) Mean Corpuscular Volume 91 fL (79-100) Mean Corpuscular Hemoglobin 29 pg (25-35) Mean Corpuscular Hemoglobin Concent 32 g/dL (31-37) Red Cell Distribution Width 20.4 % (11.5-14.5) Platelet Count 257 x10^3/uL (140-400) Neutrophils (%) (Auto) 69 % (31-73) Lymphocytes (%) (Auto) 13 % (24-48) Monocytes (%) (Auto) 14 % (0-9) Eosinophils (%) (Auto) 3 % (0-3) Basophils (%) (Auto) 1 % (0-3) Neutrophils # (Auto) 4.4 x10^3/uL (1.8-7.7) Lymphocytes # (Auto) 0.8 x10^3/uL (1.0-4.8) Monocytes # (Auto) 0.9 x10^3/uL (0.0-1.1) Eosinophils # (Auto) 0.2 x10^3/uL (0.0-0.7) Basophils # (Auto) 0.1 x10^3/uL (0.0-0.2) Images Images Chest radiograph: The heart is borderline enlarged. There is reticular nodular opacities throughout the right lung and there is diffuse linear reticular opacities in the left. This blunting of the left costophrenic angle. Impression: Mild left effusion and bilateral infiltrates suggesting atypical pneumonia. This appears similar to the prior study. VTE Prophylaxis Ordered VTE Prophylaxis Devices: Yes VTE Pharmacological Prophylaxi: Yes Assessment/Plan Assessment/Plan Arrhythmia -not notable on EKG interpretation. Will maintain telemetry. Shortness of breath -with cough. He was already on Augmentin for cellulitis to the right foot. Chest radiograph may indicate his pleural effusions worsen contributing to shortness of breath. 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
[2021-08-30 17:55] VITALS: BP 108/72
--- NOTE | 2021-08-30 19:03 | EKG ---
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
[2021-08-30] MEDS ORDERED: IV DEXTROSE 5% 250 ML BAG. IV PRN (19:15)
[2021-08-30] MEDS ORDERED: DEXTROSE 50% 25 GM / 50ML DISP.SYRIN. IV PRN (19:15)
[2021-08-30] MEDS ORDERED: ACETAMINOPHEN 325 MG TABLET. PO PRN (19:15)
[2021-08-30] MEDS ORDERED: hydrOXYzine 25 MG TABLET PO PRN (19:15)
[2021-08-30] MEDS ORDERED: ONDANSETRON ODT 4 MG TAB.RAPDIS. PO PRN (19:15)
[2021-08-30] MEDS: ATORVASTATIN CALCIUM 40 MG TABLET. PO SCH (20:37)
[2021-08-30] MEDS: QUEtiapine 25 MG TABLET. PO SCH (20:38)
[2021-08-30] MEDS: SENNOSIDES/DOCUSATE 8.6/50MG TABLET. PO SCH (20:38)
[2021-08-30] MEDS: GABAPENTIN 300 MG CAPSULE. PO SCH (20:38)
[2021-08-30] MEDS: traMADol 50 MG TABLET PO PRN (20:40)
[2021-08-30] MEDS: INSULIN GLARGINE SYRINGE. SQ SCH (20:45)
[2021-08-30 23:05] VITALS: BP 99/45
[2021-08-31] MEDS: ONDANSETRON PF 4 MG/2 ML VIAL. IVP PRN ×2 (00:27→12:49)
[2021-08-31 03:00] VITALS: BP 118/70
[2021-08-31 04:48] LABS: BASO # 0.1 x10^3/uL (0.0-0.2); BASO % 1 % (0-3); EOS # 0.3 x10^3/uL (0.0-0.7); EOS % 6 % (0-3); HEMATOCRIT 23.4 % (39.0-53.0); HEMOGLOBIN 7.4 g/dL (13.0-17.5); LYMPH # 0.7 x10^3/uL (1.0-4.8); LYMPH % 12 % (24-48); MEAN CORPUSCULAR HEMOGLOBIN 29 pg (25-35); MEAN CORPUSCULAR HGB CONC 32 g/dL (31-37); MEAN CORPUSCULAR VOLUME 91 fL (79-100); MONO # 0.7 x10^3/uL (0.0-1.1); MONO % 13 % (0-9); NEUT # 4.1 x10^3/uL (1.8-7.7); NEUT % 69 % (31-73); PLATELET COUNT 268 x10^3/uL (140-400); RED BLOOD COUNT 2.57 x10^6/uL (4.30-5.70); RED CELL DISTRIBUTION WIDTH 20.3 % (11.5-14.5); WHITE BLOOD COUNT 5.9 x10^3/uL (4.0-11.0)
[2021-08-31 05:08] LABS: ALBUMIN 1.5 g/dL (3.4-5.0); ALBUMIN/GLOBULIN RATIO 0.3 (1.0-1.7); ALK PHOS 102 U/L (46-116); ANION GAP 9 (6-14); AST (SGOT) 12 U/L (15-37); BLOOD UREA NITROGEN 50 mg/dL (8-26); BUN/CREATININE RATIO 9 (6-20); CARBON DIOXIDE 33 mmol/L (21-32); CHLORIDE 92 mmol/L (98-107); CREATININE 5.6 mg/dL (0.7-1.3); GFR 11.3; GLUCOSE 184 mg/dL (70-99); POTASSIUM 3.7 mmol/L (3.5-5.1); SODIUM 134 mmol/L (136-145); TOTAL BILIRUBIN 0.3 mg/dL (0.2-1.0); TOTAL PROTEIN 6.7 g/dL (6.4-8.2)
[2021-08-31 05:12] LABS: ALT (SGPT) < 6 U/L (16-63)
[2021-08-31] MEDS: LEVOTHYROXINE 100 MCG TABLET PO SCH (05:50)
[2021-08-31] MEDS: MIDODRINE 5 MG TABLET PO SCH ×3 (05:51→18:00)
[2021-08-31 07:00] VITALS: BP 105/43
[2021-08-31] MEDS: INSULIN LISPRO 300 UNITS/3 ML VIAL. SQ SCH ×3 (08:00→17:00)
--- NOTE | 2021-08-31 08:19 | PDOC2 ---
CONSULT Date of Consult Date of Consult DATE: 08/31/21 TIME: 08:19 Reason for Consult Reason for Consult: Cardiac arrhythmia Referring Physician Referring Physician: Dr. Marquez Identification/Chief Complaint Chief Complaint Cardiac arrhythmia Source Source: Chart review, Patient History of Present Illness Reason for Visit: 40-year-old male with history of end-stage renal disease on hemodialysis, coronary artery disease, peripheral artery disease s/p left BKA in the past and more recent right transmetatarsal amputation, long-term SNF resident apparently was noted to have cardiac arrhythmia during his dialysis session (reportedly nonsustained VT) and referred to [facility] for further evaluation. Patient denied any palpitations as such. He has baseline dyspnea and denied any recent worsening. He also denied any chest pain, orthopnea/PND or syncope. Past Medical History Cardiovascular: CAD, HTN CENTRAL NERVOUS SYSTEM: Periperal neuropathy Heme/Onc: Anemia NOS, Other Renal/: Chronic renal failure Endocrine: Diabetes Past Surgical History Past Surgical History: Other Family History Family History: Heart Disease Social History No ALCOHOL: none Drugs: None Lives: Alone Current Problem List Problem List Problems Medical Problems: (1) Anemia Status: Acute (2) Arrhythmia Status: Acute Current Medications Current Medications Current Medications Olanzapine (ZyPREXA ZYDIS) 5 mg PRN BID PRN PO ANXIETY / AGITATION; Start 08/30/21 at 19:15 Ondansetron HCl (Zofran) 4 mg PRN Q4HRS PRN IVP NAUSEA/VOMITING Last administered on 08/31/21at 00:27; Start 08/30/21 at 19:15 Tramadol HCl (Ultram) 50 mg PRN Q6HRS PRN PO MODERATE TO SEVERE PAIN Last administered on 08/30/21at 20:40; Start 08/30/21 at 19:15 Acetaminophen (Tylenol) 650 mg PRN Q6HRS PRN PO MILD PAIN / TEMP > 100.3'F; Start 08/30/21 at 19:15 Amoxicillin/ Clavulanate Potassium (Augmentin 500/ 125mg) 1 tab DAILY PO ; Start 08/31/21 at 09:00 Aspirin (Ecotrin) 81 mg DAILY PO ; Start 08/31/21 at 09:00 Atorvastatin Calcium (Lipitor) 40 mg QHS PO Last administered on 08/30/21at 20:37; Start 08/30/21 at 21:00 Clopidogrel Bisulfate (Plavix) 75 mg DAILY PO ; Start 08/31/21 at 09:00 Gabapentin (Neurontin) 300 mg QHS PO Last administered on 08/30/21at 20:38; Start 08/30/21 at 21:00 Hydroxyzine HCl (Atarax) 25 mg PRN Q8HRS PRN PO ITCHING; Start 08/30/21 at 19:15 Insulin Glargine (Lantus Syringe) 10 unit QHS SQ Last administered on 08/30/21at 20:45; Start 08/30/21 at 21:00 Levothyroxine Sodium (Synthroid) 100 mcg DAILY06 PO Last administered on 08/31/21at 05:50; Start 08/31/21 at 06:00 Ondansetron HCl (Zofran Odt) 4 mg PRN Q6HRS PRN PO NAUSEA; Start 08/30/21 at 19:15 Pantoprazole Sodium (Protonix) 40 mg BIDAC PO ; Start 08/31/21 at 07:30 Quetiapine Fumarate (SEROquel) 25 mg HS PO Last administered on 08/30/21at 20:38; Start 08/30/21 at 21:00 Senna/Docusate Sodium (Senna Plus) 2 tab BID PO Last administered on 08/30/21at 20:38; Start 08/30/21 at 21:00 Sevelamer Carbonate (Renvela) 800 mg TIDWMEALS PO ; Start 08/31/21 at 08:00 Ascorbic Acid (Vitamin C) 500 mg DAILY PO ; Start 08/31/21 at 09:00 Folic Acid (Folic Acid) 1 mg DAILY PO ; Start 08/31/21 at 09:00 Midodrine (Proamatine) 10 mg [id number] PO Last administered on 08/31/21at 05:51; Start 08/31/21 at 07:00 Multivitamins (Thera M Plus) 1 tab DAILY PO ; Start 08/31/21 at 09:00 Sertraline HCl (Zoloft) 100 mg DAILY PO ; Start 08/31/21 at 09:00 Vitamin B Complex/ Vitamin C (Yajaira-Allan) 1 tab DAILY PO ; Start 08/31/21 at 09:00 Insulin Human Lispro (HumaLOG) 0-9 UNITS TIDWMEALS SQ ; Start 08/31/21 at 08:00 Dextrose (Dextrose 50%-Water Syringe) 12.5 gm PRN Q15MIN PRN IV SEE COMMENTS; Start 08/30/21 at 19:15 Dextrose (Iv Dextrose 5%) 250 ml PRN Q15MIN PRN IV SEE COMMENTS; Start 08/30/21 at 19:15 Active Scripts Active Lantus (Insulin Glargine,Hum.rec.anlog) 100 Unit/1 Ml Vial 10 Unit SQ QHS 30 Days Percocet 5-325 Mg Tablet (Oxycodone/Acetaminophen) 1 Each Tablet 1 Tab PO PRN Q6HRS PRN 6 Days Novolog Flexpen (Insulin Aspart) 100 Unit/1 Ml Insuln.pen 0-9 Unit SQ TIDAC 30 Days Augmentin 500-125 Tablet (Amoxicillin/Potassium Clav) 1 Each Tablet 1 Tab PO DAILY 10 Days Gabapentin (Gabapentin) 300 Mg Capsule 300 Mg PO QHS 30 Days Midodrine Hcl 10 Mg Tablet 10 Mg PO TID 30 Days Reported Vitamin C (Ascorbic Acid) 500 Mg Capsule 500 Mg PO DAILY Renvela (Sevelamer Carbonate) 800 Mg Tablet 1 Tab PO TID 30 Days Senna Plus Tablet (Sennosides/Docusate Sodium) 1 Each Tablet 2 Tab PO BID 14 Days Ondansetron Odt (Ondansetron) 4 Mg Tab.rapdis 1 Tab PO PRN Q6HRS PRN Multivitamins With Minerals (Multivitamin With Minerals) 1 Each Tablet 1 Tab PO DAILY 30 Days Levothyroxine Sodium 100 Mcg Tablet 1 Tab PO DAILY Folic Acid 0.8 Mg Tablet 1 Mg PO DAILY Acetaminophen 325 Mg Tablet 1 Tab PO PRN Q6HRS PRN 24 Days Zoloft (Sertraline Hcl) 100 Mg Tablet 1 Tab PO DAILY Seroquel (Quetiapine Fumarate) 25 Mg Tablet 1 Tab PO HS Yajaira-Allan Rx Tablet (Vit B Cmplx 3/Fa/Vit C/Biotin) 1 Each Tablet 1 Tab PO DAILY 30 Days Clopidogrel (Clopidogrel Bisulfate) 75 Mg Tablet 1 Tab PO DAILY Pantoprazole Sodium 40 Mg Tablet.dr 40 Mg PO BID Hydroxyzine Hcl 25 Mg Tablet 1 Tab PO PRN Q8HRS PRN Furosemide 80 Mg Tablet 1 Tab PO DAILY Atorvastatin Calcium 40 Mg Tablet 1 Tab PO QHS Aspirin Ec (Aspirin) 81 Mg Tablet.dr 1 Tab PO DAILY Allergies Allergies: Coded Allergies: metoclopramide (Verified Allergy, Intermediate, 08/19/21) ROS PSYCHOLOGICAL ROS: No: Hallucinations Eyes: No Loss of vision HEENT: No: Epistaxis Respiratory: No: Hemoptysis Cardiovascular: No Chest Pain Gastrointestinal: No Vomiting, No Diarrhea Neurological: No Seizures Physical Exam General: Alert, No acute distress HEENT: Atraumatic Lungs: Clear to auscultation Heart: Regular rate Abdomen: Soft Extremities: Other (s/p left BKA and right transmetatarsal amputation) Neuro: Normal speech Psych/Mental Status: Mood NL Vitals VITALS Vital Signs Date Time Temp Pulse Resp B/P (MAP) Pulse Ox O2 Delivery O2 Flow Rate FiO2 08/31/21 05:51 84 109/70 08/31/21 03:00 98.1 18 100 Room Air 98.1 08/30/21 21:10 2.0 Labs Labs Laboratory Tests Test 08/30/21 10:22 08/30/21 10:30 08/30/21 13:50 08/30/21 17:10 SARS-CoV-2 Antigen (Rapid) Negative (NEGATIVE) Prothrombin Time 15.1 SEC (11.7-14.0) Prothromb Time International Ratio 1.2 (0.8-1.1) Sodium Level 135 mmol/L (136-145) Potassium Level 3.6 mmol/L (3.5-5.1) Chloride Level 92 mmol/L (98-107) Carbon Dioxide Level 34 mmol/L (21-32) Anion Gap 9 (6-14) Blood Urea Nitrogen 43 mg/dL (8-26) Creatinine 4.6 mg/dL (0.7-1.3) Estimated GFR (Cockcroft-Gault) 14.2 BUN/Creatinine Ratio 9 (6-20) Glucose Level 147 mg/dL (70-99) Calcium Level 9.0 mg/dL (8.5-10.1) Phosphorus Level 5.0 mg/dL (2.6-4.7) Magnesium Level 1.8 mg/dL (1.8-2.4) Total Bilirubin 0.5 mg/dL (0.2-1.0) Aspartate Amino Transf (AST/SGOT) 11 U/L (15-37) Alanine Aminotransferase (ALT/SGPT) 6 U/L (16-63) Alkaline Phosphatase 115 U/L (46-116) Troponin I High Sensitivity 214 ng/L (4-75) 217 ng/L (4-75) 237 ng/L (4-75) Total Protein 7.2 g/dL (6.4-8.2) Albumin 1.7 g/dL (3.4-5.0) Albumin/Globulin Ratio 0.3 (1.0-1.7) Lipase 107 U/L (73-393) White Blood Count 6.5 x10^3/uL (4.0-11.0) Red Blood Count 2.43 x10^6/uL (4.30-5.70) Hemoglobin 7.0 g/dL (13.0-17.5) Hematocrit 22.0 % (39.0-53.0) Mean Corpuscular Volume 91 fL (79-100) Mean Corpuscular Hemoglobin 29 pg (25-35) Mean Corpuscular Hemoglobin Concent 32 g/dL (31-37) Red Cell Distribution Width 20.4 % (11.5-14.5) Platelet Count 257 x10^3/uL (140-400) Neutrophils (%) (Auto) 69 % (31-73) Lymphocytes (%) (Auto) 13 % (24-48) Monocytes (%) (Auto) 14 % (0-9) Eosinophils (%) (Auto) 3 % (0-3) Basophils (%) (Auto) 1 % (0-3) Neutrophils # (Auto) 4.4 x10^3/uL (1.8-7.7) Lymphocytes # (Auto) 0.8 x10^3/uL (1.0-4.8) Monocytes # (Auto) 0.9 x10^3/uL (0.0-1.1) Eosinophils # (Auto) 0.2 x10^3/uL (0.0-0.7) Basophils # (Auto) 0.1 x10^3/uL (0.0-0.2) Test 08/30/21 20:09 08/31/21 04:30 Glucose (Fingerstick) 144 mg/dL (70-99) White Blood Count 5.9 x10^3/uL (4.0-11.0) Red Blood Count 2.57 x10^6/uL (4.30-5.70) Hemoglobin 7.4 g/dL (13.0-17.5) Hematocrit 23.4 % (39.0-53.0) Mean Corpuscular Volume 91 fL (79-100) Mean Corpuscular Hemoglobin 29 pg (25-35) Mean Corpuscular Hemoglobin Concent 32 g/dL (31-37) Red Cell Distribution Width 20.3 % (11.5-14.5) Platelet Count 268 x10^3/uL (140-400) Neutrophils (%) (Auto) 69 % (31-73) Lymphocytes (%) (Auto) 12 % (24-48) Monocytes (%) (Auto) 13 % (0-9) Eosinophils (%) (Auto) 6 % (0-3) Basophils (%) (Auto) 1 % (0-3) Neutrophils # (Auto) 4.1 x10^3/uL (1.8-7.7) Lymphocytes # (Auto) 0.7 x10^3/uL (1.0-4.8) Monocytes # (Auto) 0.7 x10^3/uL (0.0-1.1) Eosinophils # (Auto) 0.3 x10^3/uL (0.0-0.7) Basophils # (Auto) 0.1 x10^3/uL (0.0-0.2) Sodium Level 134 mmol/L (136-145) Potassium Level 3.7 mmol/L (3.5-5.1) Chloride Level 92 mmol/L (98-107) Carbon Dioxide Level 33 mmol/L (21-32) Anion Gap 9 (6-14) Blood Urea Nitrogen 50 mg/dL (8-26) Creatinine 5.6 mg/dL (0.7-1.3) Estimated GFR (Cockcroft-Gault) 11.3 BUN/Creatinine Ratio 9 (6-20) Glucose Level 184 mg/dL (70-99) Calcium Level 9.0 mg/dL (8.5-10.1) Magnesium Level 2.0 mg/dL (1.8-2.4) Total Bilirubin 0.3 mg/dL (0.2-1.0) Aspartate Amino Transf (AST/SGOT) 12 U/L (15-37) Alanine Aminotransferase (ALT/SGPT) < 6 U/L (16-63) Alkaline Phosphatase 102 U/L (46-116) Total Protein 6.7 g/dL (6.4-8.2) Albumin 1.5 g/dL (3.4-5.0) Albumin/Globulin Ratio 0.3 (1.0-1.7) Laboratory Tests Test 08/30/21 10:22 08/30/21 10:30 08/30/21 13:50 08/30/21 17:10 SARS-CoV-2 Antigen (Rapid) Negative (NEGATIVE) Prothrombin Time 15.1 SEC (11.7-14.0) Prothromb Time International Ratio 1.2 (0.8-1.1) Sodium Level 135 mmol/L (136-145) Potassium Level 3.6 mmol/L (3.5-5.1) Chloride Level 92 mmol/L (98-107) Carbon Dioxide Level 34 mmol/L (21-32) Anion Gap 9 (6-14) Blood Urea Nitrogen 43 mg/dL (8-26) Creatinine 4.6 mg/dL (0.7-1.3) Estimated GFR (Cockcroft-Gault) 14.2 BUN/Creatinine Ratio 9 (6-20) Glucose Level 147 mg/dL (70-99) Calcium Level 9.0 mg/dL (8.5-10.1) Phosphorus Level 5.0 mg/dL (2.6-4.7) Magnesium Level 1.8 mg/dL (1.8-2.4) Total Bilirubin 0.5 mg/dL (0.2-1.0) Aspartate Amino Transf (AST/SGOT) 11 U/L (15-37) Alanine Aminotransferase (ALT/SGPT) 6 U/L (16-63) Alkaline Phosphatase 115 U/L (46-116) Troponin I High Sensitivity 214 ng/L (4-75) 217 ng/L (4-75) 237 ng/L (4-75) Total Protein 7.2 g/dL (6.4-8.2) Albumin 1.7 g/dL (3.4-5.0) Albumin/Globulin Ratio 0.3 (1.0-1.7) Lipase 107 U/L (73-393) White Blood Count 6.5 x10^3/uL (4.0-11.0) Red Blood Count 2.43 x10^6/uL (4.30-5.70) Hemoglobin 7.0 g/dL (13.0-17.5) Hematocrit 22.0 % (39.0-53.0) Mean Corpuscular Volume 91 fL (79-100) Mean Corpuscular Hemoglobin 29 pg (25-35) Mean Corpuscular Hemoglobin Concent 32 g/dL (31-37) Red Cell Distribution Width 20.4 % (11.5-14.5) Platelet Count 257 x10^3/uL (140-400) Neutrophils (%) (Auto) 69 % (31-73) Lymphocytes (%) (Auto) 13 % (24-48) Monocytes (%) (Auto) 14 % (0-9) Eosinophils (%) (Auto) 3 % (0-3) Basophils (%) (Auto) 1 % (0-3) Neutrophils # (Auto) 4.4 x10^3/uL (1.8-7.7) Lymphocytes # (Auto) 0.8 x10^3/uL (1.0-4.8) Monocytes # (Auto) 0.9 x10^3/uL (0.0-1.1) Eosinophils # (Auto) 0.2 x10^3/uL (0.0-0.7) Basophils # (Auto) 0.1 x10^3/uL (0.0-0.2) Test 08/30/21 20:09 08/31/21 04:30 Glucose (Fingerstick) 144 mg/dL (70-99) White Blood Count 5.9 x10^3/uL (4.0-11.0) Red Blood Count 2.57 x10^6/uL (4.30-5.70) Hemoglobin 7.4 g/dL (13.0-17.5) Hematocrit 23.4 % (39.0-53.0) Mean Corpuscular Volume 91 fL (79-100) Mean Corpuscular Hemoglobin 29 pg (25-35) Mean Corpuscular Hemoglobin Concent 32 g/dL (31-37) Red Cell Distribution Width 20.3 % (11.5-14.5) Platelet Count 268 x10^3/uL (140-400) Neutrophils (%) (Auto) 69 % (31-73) Lymphocytes (%) (Auto) 12 % (24-48) Monocytes (%) (Auto) 13 % (0-9) Eosinophils (%) (Auto) 6 % (0-3) Basophils (%) (Auto) 1 % (0-3) Neutrophils # (Auto) 4.1 x10^3/uL (1.8-7.7) Lymphocytes # (Auto) 0.7 x10^3/uL (1.0-4.8) Monocytes # (Auto) 0.7 x10^3/uL (0.0-1.1) Eosinophils # (Auto) 0.3 x10^3/uL (0.0-0.7) Basophils # (Auto) 0.1 x10^3/uL (0.0-0.2) Sodium Level 134 mmol/L (136-145) Potassium Level 3.7 mmol/L (3.5-5.1) Chloride Level 92 mmol/L (98-107) Carbon Dioxide Level 33 mmol/L (21-32) Anion Gap 9 (6-14) Blood Urea Nitrogen 50 mg/dL (8-26) Creatinine 5.6 mg/dL (0.7-1.3) Estimated GFR (Cockcroft-Gault) 11.3 BUN/Creatinine Ratio 9 (6-20) Glucose Level 184 mg/dL (70-99) Calcium Level 9.0 mg/dL (8.5-10.1) Magnesium Level 2.0 mg/dL (1.8-2.4) Total Bilirubin 0.3 mg/dL (0.2-1.0) Aspartate Amino Transf (AST/SGOT) 12 U/L (15-37) Alanine Aminotransferase (ALT/SGPT) < 6 U/L (16-63) Alkaline Phosphatase 102 U/L (46-116) Total Protein 6.7 g/dL (6.4-8.2) Albumin 1.5 g/dL (3.4-5.0) Albumin/Globulin Ratio 0.3 (1.0-1.7) Assessment/Plan Assessment/Plan 1. Nonsustained ventricular tachycardia: Telemetry after admission showed few more episodes that were brief. Magnesium level within normal limits. 2D echo 06/19/2021 showed normal LV systolic function with EF 55 to 60%. Cardiac catheterization in January 2021 showed patent RCA stent. QTc interval 495, probably secondary to antidepressants. We will have his pacemaker interrogated to assess arrhythmia burden. 2. Non-STEMI most probably demand ischemia. 3. Coronary artery disease s/p PCI/stent to RCA with recent cath showing patent stent as stated above. He is presently chest pain-free. Continue current secondary prevention measures. 4. SSS s/p leadless pacemaker implantation, stable 5. End-stage renal disease on hemodialysis per nephrology team 6. Chronic diastolic heart failure: Clinically well compensated 7. PAD s/p left BKA and and more recent right transmetatarsal amputation 8. Hypertension: Controlled 9. Hyperlipidemia: Continue statins 10. Hypothyroidism: Continue levothyroxine 11. DM2: Treat per IM 12. h/o CVA Thank you for your consultation OMER ORTIZ MD Aug 31, 2021 08:19
[2021-08-31] MEDS: PANTOPRAZOLE 40 MG TABLET.DR. PO SCH ×2 (09:50→18:09)
[2021-08-31] MEDS: FOLIC/VIT B COMP W-C (RENAL) TABLET. PO SCH (09:50)
[2021-08-31] MEDS: ASCORBIC ACID 500 MG TABLET PO SCH (09:50)
[2021-08-31] MEDS: MULTIVITAMIN with MINERAL TABLET. PO SCH (09:50)
[2021-08-31] MEDS: CLOPIDOGREL BISULFATE 75 MG TABLET PO SCH (09:50)
[2021-08-31] MEDS: AMOXICILLIN/K CLAV 500/125MG TABLET. PO SCH (09:50)
[2021-08-31] MEDS: ASPIRIN ENTERIC COATED 81 MG TABLET.DR. PO SCH (09:50)
[2021-08-31] MEDS: FOLIC ACID 1 MG TABLET. PO SCH (09:50)
[2021-08-31] MEDS: traMADol 50 MG TABLET PO PRN ×2 (09:50→21:49)
[2021-08-31] MEDS: SERTRALINE 50 MG TABLET. PO SCH (09:51)
[2021-08-31] MEDS: SENNOSIDES/DOCUSATE 8.6/50MG TABLET. PO SCH ×2 (09:51→21:48)
[2021-08-31] MEDS: SEVELAMER CARBONATE 800 MG TABLET. PO SCH ×3 (09:53→18:09)
[2021-08-31 11:00] VITALS: BP 107/64
--- NOTE | 2021-08-31 12:04 | PDOC ---
[employer] PROGRESS NOTE Date of Service DOS: DATE: 08/31/21 TIME: 12:03 Chief Complaint Chief Complaint Arrhythmia -not notable on EKG interpretation. Will maintain telemetry. Shortness of breath -with cough. He was already on Augmentin for cellulitis to the right foot. Chest radiograph may indicate his pleural effusions worsen contributing to shortness of breath. 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 FEN - Renal ada diet PPX -heparin FULL CODE DIspo - inpatient History of Present Illness History of Present Illness Mr Esparza is a 40-year-old male who has been on dialysis for 4 years, end-stage renal disease, prior cerebrovascular accident; peripheral neuropathy; congestive heart failure; hyperlipidemia; hypertension; asthma; gastroesophageal reflux disease; s/p left BKA; history of depression; diabetes who is a long-term SNF resident who returns to ED from his SNF for concerns for arrhythmia, not feeling well, and anemia with a hemoglobin of 7 and reportedly had 3 runs of vtach reportedly at his facility. Patient notes that he was actually told his heart rate was slow. EKG by my interpretation sinus rhythm rate of [address] depressions in V3 V4 similar to prior and T WI in lead I and aVL similar to prior. QTc 495 Labs with WBC 6.5, Hb 7, platelets 257, NA 135, K3.6, BUN 43, CR 4.6, glucose 147, calcium 9, phosphorus 5, mag 1.8 albumin 1.7, lipase 107 otherwise LFTs within normal laboratory limits, high-sensitivity troponin is 214 and repeat is 237. 08/31: Hb 7.4, still with abdominal swelling that he feels like is bothersome he notes he had outpatient paracentesis before he came here still some shortness of breath. Reviewed his chest films notably he has worsening pleural effusions will obtain CT chest today Vitals/I&O Vitals/I&O: Vital Signs Date Time Temp Pulse Resp B/P (MAP) Pulse Ox O2 Delivery O2 Flow Rate FiO2 08/31/21 09:50 20 Room Air 08/31/21 07:00 97.8 92 105/43 (63) 93 97.8 08/30/21 21:10 2.0 l I & O 08/30/21 08/30/21 08/31/21 15:00 23:00 07:00 Intake Total 120 ml 360 ml Output Total 0 ml Balance 120 ml 360 ml Physical Exam General: Alert, Cooperative, mild distress Lungs: Crackles Abdomen: Normal bowel sounds, Soft, No tenderness, No masses, Other (Positive fluid wave, splenomegaly) Skin: Other (Sacral ulcer, right heel ulcer, right TMA site with sutures intact) Labs Labs: Laboratory Tests Test 08/30/21 13:50 08/30/21 17:10 08/30/21 20:09 08/31/21 04:30 White Blood Count 6.5 x10^3/uL (4.0-11.0) 5.9 x10^3/uL (4.0-11.0) Red Blood Count 2.43 x10^6/uL (4.30-5.70) 2.57 x10^6/uL (4.30-5.70) Hemoglobin 7.0 g/dL (13.0-17.5) 7.4 g/dL (13.0-17.5) Hematocrit 22.0 % (39.0-53.0) 23.4 % (39.0-53.0) Mean Corpuscular Volume 91 fL (79-100) 91 fL (79-100) Mean Corpuscular Hemoglobin 29 pg (25-35) 29 pg (25-35) Mean Corpuscular Hemoglobin Concent 32 g/dL (31-37) 32 g/dL (31-37) Red Cell Distribution Width 20.4 % (11.5-14.5) 20.3 % (11.5-14.5) Platelet Count 257 x10^3/uL (140-400) 268 x10^3/uL (140-400) Neutrophils (%) (Auto) 69 % (31-73) 69 % (31-73) Lymphocytes (%) (Auto) 13 % (24-48) 12 % (24-48) Monocytes (%) (Auto) 14 % (0-9) 13 % (0-9) Eosinophils (%) (Auto) 3 % (0-3) 6 % (0-3) Basophils (%) (Auto) 1 % (0-3) 1 % (0-3) Neutrophils # (Auto) 4.4 x10^3/uL (1.8-7.7) 4.1 x10^3/uL (1.8-7.7) Lymphocytes # (Auto) 0.8 x10^3/uL (1.0-4.8) 0.7 x10^3/uL (1.0-4.8) Monocytes # (Auto) 0.9 x10^3/uL (0.0-1.1) 0.7 x10^3/uL (0.0-1.1) Eosinophils # (Auto) 0.2 x10^3/uL (0.0-0.7) 0.3 x10^3/uL (0.0-0.7) Basophils # (Auto) 0.1 x10^3/uL (0.0-0.2) 0.1 x10^3/uL (0.0-0.2) Troponin I High Sensitivity 217 ng/L (4-75) 237 ng/L (4-75) Glucose (Fingerstick) 144 mg/dL (70-99) Sodium Level 134 mmol/L (136-145) Potassium Level 3.7 mmol/L (3.5-5.1) Chloride Level 92 mmol/L (98-107) Carbon Dioxide Level 33 mmol/L (21-32) Anion Gap 9 (6-14) Blood Urea Nitrogen 50 mg/dL (8-26) Creatinine 5.6 mg/dL (0.7-1.3) Estimated GFR (Cockcroft-Gault) 11.3 BUN/Creatinine Ratio 9 (6-20) Glucose Level 184 mg/dL (70-99) Calcium Level 9.0 mg/dL (8.5-10.1) Magnesium Level 2.0 mg/dL (1.8-2.4) Total Bilirubin 0.3 mg/dL (0.2-1.0) Aspartate Amino Transf (AST/SGOT) 12 U/L (15-37) Alanine Aminotransferase (ALT/SGPT) < 6 U/L (16-63) Alkaline Phosphatase 102 U/L (46-116) Total Protein 6.7 g/dL (6.4-8.2) Albumin 1.5 g/dL (3.4-5.0) Albumin/Globulin Ratio 0.3 (1.0-1.7) Test 08/31/21 08:26 08/31/21 12:01 Glucose (Fingerstick) 122 mg/dL (70-99) 178 mg/dL (70-99) Assessment and Plan Assessmemt and Plan Problems Medical Problems: (1) Anemia Status: Acute (2) Arrhythmia Status: Acute Comment Review of Relevant I have reviewed the following items juan a (where applicable) has been applied. Medications: Current Medications Medications (Trade) Dose Ordered Sig/Damien Route PRN Reason Start Time Stop Time Status Last Admin Dose Admin Ondansetron HCl (Zofran) 4 mg PRN Q4HRS PRN IVP NAUSEA/VOMITING 08/30/21 19:15 08/31/21 00:27 Tramadol HCl (Ultram) 50 mg PRN Q6HRS PRN PO MODERATE TO SEVERE PAIN 08/30/21 19:15 08/31/21 09:50 Amoxicillin/ Clavulanate Potassium (Augmentin 500/ 125mg) 1 tab DAILY PO 08/31/21 09:00 08/31/21 09:50 Aspirin (Ecotrin) 81 mg DAILY PO 08/31/21 09:00 08/31/21 09:50 Atorvastatin Calcium (Lipitor) 40 mg QHS PO 08/30/21 21:00 08/30/21 20:37 Clopidogrel Bisulfate (Plavix) 75 mg DAILY PO 08/31/21 09:00 08/31/21 09:50 Gabapentin (Neurontin) 300 mg QHS PO 08/30/21 21:00 08/30/21 20:38 Insulin Glargine (Lantus Syringe) 10 unit QHS SQ 08/30/21 21:00 08/30/21 20:45 Levothyroxine Sodium (Synthroid) 100 mcg DAILY06 PO 08/31/21 06:00 08/31/21 05:50 Pantoprazole Sodium (Protonix) 40 mg BIDAC PO 08/31/21 07:30 08/31/21 09:50 Quetiapine Fumarate (SEROquel) 25 mg HS PO 08/30/21 21:00 08/30/21 20:38 Senna/Docusate Sodium (Senna Plus) 2 tab BID PO 08/30/21 21:00 08/31/21 09:51 Sevelamer Carbonate (Renvela) 800 mg TIDWMEALS PO 08/31/21 08:00 08/31/21 09:53 Ascorbic Acid (Vitamin C) 500 mg DAILY PO 08/31/21 09:00 08/31/21 09:50 Folic Acid (Folic Acid) 1 mg DAILY PO 08/31/21 09:00 08/31/21 09:50 Midodrine (Proamatine) 10 mg [id number] PO 08/31/21 07:00 08/31/21 05:51 Multivitamins (Thera M Plus) 1 tab DAILY PO 08/31/21 09:00 08/31/21 09:50 Sertraline HCl (Zoloft) 100 mg DAILY PO 08/31/21 09:00 08/31/21 09:51 Vitamin B Complex/ Vitamin C (Yajaira-Allan) 1 tab DAILY PO 08/31/21 09:00 08/31/21 09:50 Justifications for Admission Other Justification KODI MEDEIROS MD Aug 31, 2021 12:04
--- NOTE | 2021-08-31 12:56 | PDOC2 ---
CONSULT Date of Consult Date of Consult DATE: 08/31/21 TIME: 12:55 Reason for Consult Reason for Consult: ESRD Source Source: Chart review, Patient History of Present Illness Reason for Visit: Mr Esparza is a 40-year-old CM end-stage renal disease, prior cerebrovascular accident;; congestive heart failure;; ; s/p left BKA; diabetes who is a long- term SNF resident who returns to ED from his SNF for concerns for arrhythmia, not feeling well, and anemia with a hemoglobin of 7 and reportedly had 3 runs of vtach reportedly at his facility. Patient notes that he was actually told his heart rate was slow. Currently eating Lunch. States feeling better now,. Denies CP or SOB. No N/V Diarrhea . Past Medical History Cardiovascular: CAD, HTN CENTRAL NERVOUS SYSTEM: Periperal neuropathy Heme/Onc: Anemia NOS, Other Renal/: Chronic renal failure Endocrine: Diabetes Past Surgical History Past Surgical History: Other Family History Family History: Heart Disease Social History No ALCOHOL: none Drugs: None Lives: Alone Current Problem List Problem List Problems Medical Problems: (1) Anemia Status: Acute (2) Arrhythmia Status: Acute Current Medications Current Medications Current Medications Olanzapine (ZyPREXA ZYDIS) 5 mg PRN BID PRN PO ANXIETY / AGITATION; Start 08/30/21 at 19:15 Ondansetron HCl (Zofran) 4 mg PRN Q4HRS PRN IVP NAUSEA/VOMITING Last administered on 08/31/21at 12:49; Start 08/30/21 at 19:15 Tramadol HCl (Ultram) 50 mg PRN Q6HRS PRN PO MODERATE TO SEVERE PAIN Last administered on 08/31/21at 09:50; Start 08/30/21 at 19:15 Acetaminophen (Tylenol) 650 mg PRN Q6HRS PRN PO MILD PAIN / TEMP > 100.3'F; Start 08/30/21 at 19:15 Amoxicillin/ Clavulanate Potassium (Augmentin 500/ 125mg) 1 tab DAILY PO Last administered on 08/31/21at 09:50; Start 08/31/21 at 09:00 Aspirin (Ecotrin) 81 mg DAILY PO Last administered on 08/31/21at 09:50; Start 08/31/21 at 09:00 Atorvastatin Calcium (Lipitor) 40 mg QHS PO Last administered on 08/30/21at 20:37; Start 08/30/21 at 21:00 Clopidogrel Bisulfate (Plavix) 75 mg DAILY PO Last administered on 08/31/21 09:50; Start 08/31/21 at 09:00 Gabapentin (Neurontin) 300 mg QHS PO Last administered on 08/30/21 20:38; Start 08/30/21 at 21:00 Hydroxyzine HCl (Atarax) 25 mg PRN Q8HRS PRN PO ITCHING; Start 08/30/21 at 19:15 Insulin Glargine (Lantus Syringe) 10 unit QHS SQ Last administered on 08/30/21 20:45; Start 08/30/21 at 21:00 Levothyroxine Sodium (Synthroid) 100 mcg DAILY06 PO Last administered on 08/31/21 05:50; Start 08/31/21 at 06:00 Ondansetron HCl (Zofran Odt) 4 mg PRN Q6HRS PRN PO NAUSEA; Start 08/30/21 at 19:15 Pantoprazole Sodium (Protonix) 40 mg BIDAC PO Last administered on 08/31/21 09:50; Start 08/31/21 at 07:30 Quetiapine Fumarate (SEROquel) 25 mg HS PO Last administered on 08/30/21 20:38; Start 08/30/21 at 21:00 Senna/Docusate Sodium (Senna Plus) 2 tab BID PO Last administered on 08/31/21 09:51; Start 08/30/21 at 21:00 Sevelamer Carbonate (Renvela) 800 mg TIDWMEALS PO Last administered on 08/31/21 12:49; Start 08/31/21 at 08:00 Ascorbic Acid (Vitamin C) 500 mg DAILY PO Last administered on 08/31/21 09:50; Start 08/31/21 at 09:00 Folic Acid (Folic Acid) 1 mg DAILY PO Last administered on 08/31/21 09:50; Start 08/31/21 at 09:00 Midodrine (Proamatine) 10 mg [id number] PO Last administered on 08/31/21 12:50; Start 08/31/21 at 07:00 Multivitamins (Thera M Plus) 1 tab DAILY PO Last administered on 4/3/22at 09:50; Start 08/31/21 at 09:00 Sertraline HCl (Zoloft) 100 mg DAILY PO Last administered on 08/31/21at 09:51; Start 08/31/21 at 09:00 Vitamin B Complex/ Vitamin C (Yajaira-Allan) 1 tab DAILY PO Last administered on 08/31/21at 09:50; Start 08/31/21 at 09:00 Insulin Human Lispro (HumaLOG) 0-9 UNITS TIDWMEALS SQ ; Start 08/31/21 at 08:00 Dextrose (Dextrose 50%-Water Syringe) 12.5 gm PRN Q15MIN PRN IV SEE COMMENTS; Start 08/30/21 at 19:15 Dextrose (Iv Dextrose 5%) 250 ml PRN Q15MIN PRN IV SEE COMMENTS; Start 08/30/21 at 19:15 Active Scripts Active Lantus (Insulin Glargine,Hum.rec.anlog) 100 Unit/1 Ml Vial 10 Unit SQ QHS 30 Days Percocet 5-325 Mg Tablet (Oxycodone/Acetaminophen) 1 Each Tablet 1 Tab PO PRN Q6HRS PRN 6 Days Novolog Flexpen (Insulin Aspart) 100 Unit/1 Ml Insuln.pen 0-9 Unit SQ TIDAC 30 Days Augmentin 500-125 Tablet (Amoxicillin/Potassium Clav) 1 Each Tablet 1 Tab PO DAILY 10 Days Gabapentin (Gabapentin) 300 Mg Capsule 300 Mg PO QHS 30 Days Midodrine Hcl 10 Mg Tablet 10 Mg PO TID 30 Days Reported Vitamin C (Ascorbic Acid) 500 Mg Capsule 500 Mg PO DAILY Renvela (Sevelamer Carbonate) 800 Mg Tablet 1 Tab PO TID 30 Days Senna Plus Tablet (Sennosides/Docusate Sodium) 1 Each Tablet 2 Tab PO BID 14 Days Ondansetron Odt (Ondansetron) 4 Mg Tab.rapdis 1 Tab PO PRN Q6HRS PRN Multivitamins With Minerals (Multivitamin With Minerals) 1 Each Tablet 1 Tab PO DAILY 30 Days Levothyroxine Sodium 100 Mcg Tablet 1 Tab PO DAILY Folic Acid 0.8 Mg Tablet 1 Mg PO DAILY Acetaminophen 325 Mg Tablet 1 Tab PO PRN Q6HRS PRN 24 Days Zoloft (Sertraline Hcl) 100 Mg Tablet 1 Tab PO DAILY Seroquel (Quetiapine Fumarate) 25 Mg Tablet 1 Tab PO HS Yajaira-Allan Rx Tablet (Vit B Cmplx 3/Fa/Vit C/Biotin) 1 Each Tablet 1 Tab PO DAILY 30 Days Clopidogrel (Clopidogrel Bisulfate) 75 Mg Tablet 1 Tab PO DAILY Pantoprazole Sodium 40 Mg Tablet.dr 40 Mg PO BID Hydroxyzine Hcl 25 Mg Tablet 1 Tab PO PRN Q8HRS PRN Furosemide 80 Mg Tablet 1 Tab PO DAILY Atorvastatin Calcium 40 Mg Tablet 1 Tab PO QHS Aspirin Ec (Aspirin) 81 Mg Tablet.dr 1 Tab PO DAILY Allergies Allergies: Coded Allergies: metoclopramide (Verified Allergy, Intermediate, 08/19/21) ROS Review of System As per HPI, rest of the ROS is negative Physical Exam Physical Exam General NAD HEEN Head is normocephalic and atraumatic, om moist Neck is supple Lungs diminished breath sounds to all webster, Non labored CV normal S1 and S2 without rubs or gallops Abdomen is soft, nontender Skin is warm and dry Ext without cyanosis, clubbing or edema. left below-knee amputation. Rt TMA Psych appropriate mood and affect and is alert. Neuro Grossly normal No Rodriguez , No CVAor sp tenderness Vital Signs Vital Signs Date Time Temp Pulse Resp B/P (MAP) Pulse Ox O2 Delivery O2 Flow Rate FiO2 08/31/21 12:50 90 107/64 08/31/21 10:20 18 Room Air 08/31/21 07:00 97.8 93 97.8 08/30/21 21:10 2.0 Assessment & Plan ESRD on HD MWF ,. He has been on Dialysis since 2017. Currently at [facility]- Under Dr Godoy's care( [facility]) ; Reports last dialysis was on Wednesday No indication for dialysis today Arrhythmia per [facility] -not notable on EKG Shortness of breath -with cough. He was already on Augmentin for cellulitis to the right foot. Peripheral vascular disease - s/p left BKA and status post right transmetatarsal amputation on 08/22/2021 Anemia- Has Recd PRBC during previous admissions Congestive heart failure- Appears compensated Recent Hx of Pneumonia CAD: reported 2 stents placed about a month ago at [facility] Hx of Hypertension- low BP's was prescribed Midodrine to 10 mg TID at recent hospitalization Poorly controlled type 2 diabetes mellitus, diabetic retinopathy. Ascites and nonalcoholic steatohepatitis - Per [facility] staff he is supposed to be on scheduled paracentesis , non compliant Hx of DVT Hx of Covid-19: Not Vaccinated . Currently PUI Hx of CVA: MRI in 2016 Scattered tiny foci of restricted diffusion in different vascular territories suggesting embolic acute infarcts. Labs Labs Laboratory Tests Test 08/30/21 10:22 08/30/21 10:30 08/30/21 13:50 08/30/21 17:10 SARS-CoV-2 Antigen (Rapid) Negative (NEGATIVE) Prothrombin Time 15.1 SEC (11.7-14.0) Prothromb Time International Ratio 1.2 (0.8-1.1) Sodium Level 135 mmol/L (136-145) Potassium Level 3.6 mmol/L (3.5-5.1) Chloride Level 92 mmol/L (98-107) Carbon Dioxide Level 34 mmol/L (21-32) Anion Gap 9 (6-14) Blood Urea Nitrogen 43 mg/dL (8-26) Creatinine 4.6 mg/dL (0.7-1.3) Estimated GFR (Cockcroft-Gault) 14.2 BUN/Creatinine Ratio 9 (6-20) Glucose Level 147 mg/dL (70-99) Calcium Level 9.0 mg/dL (8.5-10.1) Phosphorus Level 5.0 mg/dL (2.6-4.7) Magnesium Level 1.8 mg/dL (1.8-2.4) Total Bilirubin 0.5 mg/dL (0.2-1.0) Aspartate Amino Transf (AST/SGOT) 11 U/L (15-37) Alanine Aminotransferase (ALT/SGPT) 6 U/L (16-63) Alkaline Phosphatase 115 U/L (46-116) Troponin I High Sensitivity 214 ng/L (4-75) 217 ng/L (4-75) 237 ng/L (4-75) Total Protein 7.2 g/dL (6.4-8.2) Albumin 1.7 g/dL (3.4-5.0) Albumin/Globulin Ratio 0.3 (1.0-1.7) Lipase 107 U/L (73-393) White Blood Count 6.5 x10^3/uL (4.0-11.0) Red Blood Count 2.43 x10^6/uL (4.30-5.70) Hemoglobin 7.0 g/dL (13.0-17.5) Hematocrit 22.0 % (39.0-53.0) Mean Corpuscular Volume 91 fL (79-100) Mean Corpuscular Hemoglobin 29 pg (25-35) Mean Corpuscular Hemoglobin Concent 32 g/dL (31-37) Red Cell Distribution Width 20.4 % (11.5-14.5) Platelet Count 257 x10^3/uL (140-400) Neutrophils (%) (Auto) 69 % (31-73) Lymphocytes (%) (Auto) 13 % (24-48) Monocytes (%) (Auto) 14 % (0-9) Eosinophils (%) (Auto) 3 % (0-3) Basophils (%) (Auto) 1 % (0-3) Neutrophils # (Auto) 4.4 x10^3/uL (1.8-7.7) Lymphocytes # (Auto) 0.8 x10^3/uL (1.0-4.8) Monocytes # (Auto) 0.9 x10^3/uL (0.0-1.1) Eosinophils # (Auto) 0.2 x10^3/uL (0.0-0.7) Basophils # (Auto) 0.1 x10^3/uL (0.0-0.2) Test 08/30/21 20:09 08/31/21 04:30 08/31/21 08:26 08/31/21 12:01 Glucose (Fingerstick) 144 mg/dL (70-99) 122 mg/dL (70-99) 178 mg/dL (70-99) White Blood Count 5.9 x10^3/uL (4.0-11.0) Red Blood Count 2.57 x10^6/uL (4.30-5.70) Hemoglobin 7.4 g/dL (13.0-17.5) Hematocrit 23.4 % (39.0-53.0) Mean Corpuscular Volume 91 fL (79-100) Mean Corpuscular Hemoglobin 29 pg (25-35) Mean Corpuscular Hemoglobin Concent 32 g/dL (31-37) Red Cell Distribution Width 20.3 % (11.5-14.5) Platelet Count 268 x10^3/uL (140-400) Neutrophils (%) (Auto) 69 % (31-73) Lymphocytes (%) (Auto) 12 % (24-48) Monocytes (%) (Auto) 13 % (0-9) Eosinophils (%) (Auto) 6 % (0-3) Basophils (%) (Auto) 1 % (0-3) Neutrophils # (Auto) 4.1 x10^3/uL (1.8-7.7) Lymphocytes # (Auto) 0.7 x10^3/uL (1.0-4.8) Monocytes # (Auto) 0.7 x10^3/uL (0.0-1.1) Eosinophils # (Auto) 0.3 x10^3/uL (0.0-0.7) Basophils # (Auto) 0.1 x10^3/uL (0.0-0.2) Sodium Level 134 mmol/L (136-145) Potassium Level 3.7 mmol/L (3.5-5.1) Chloride Level 92 mmol/L (98-107) Carbon Dioxide Level 33 mmol/L (21-32) Anion Gap 9 (6-14) Blood Urea Nitrogen 50 mg/dL (8-26) Creatinine 5.6 mg/dL (0.7-1.3) Estimated GFR (Cockcroft-Gault) 11.3 BUN/Creatinine Ratio 9 (6-20) Glucose Level 184 mg/dL (70-99) Calcium Level 9.0 mg/dL (8.5-10.1) Magnesium Level 2.0 mg/dL (1.8-2.4) Total Bilirubin 0.3 mg/dL (0.2-1.0) Aspartate Amino Transf (AST/SGOT) 12 U/L (15-37) Alanine Aminotransferase (ALT/SGPT) < 6 U/L (16-63) Alkaline Phosphatase 102 U/L (46-116) Total Protein 6.7 g/dL (6.4-8.2) Albumin 1.5 g/dL (3.4-5.0) Albumin/Globulin Ratio 0.3 (1.0-1.7) Laboratory Tests Test 08/30/21 13:50 08/30/21 17:10 08/30/21 20:09 08/31/21 04:30 White Blood Count 6.5 x10^3/uL (4.0-11.0) 5.9 x10^3/uL (4.0-11.0) Red Blood Count 2.43 x10^6/uL (4.30-5.70) 2.57 x10^6/uL (4.30-5.70) Hemoglobin 7.0 g/dL (13.0-17.5) 7.4 g/dL (13.0-17.5) Hematocrit 22.0 % (39.0-53.0) 23.4 % (39.0-53.0) Mean Corpuscular Volume 91 fL (79-100) 91 fL (79-100) Mean Corpuscular Hemoglobin 29 pg (25-35) 29 pg (25-35) Mean Corpuscular Hemoglobin Concent 32 g/dL (31-37) 32 g/dL (31-37) Red Cell Distribution Width 20.4 % (11.5-14.5) 20.3 % (11.5-14.5) Platelet Count 257 x10^3/uL (140-400) 268 x10^3/uL (140-400) Neutrophils (%) (Auto) 69 % (31-73) 69 % (31-73) Lymphocytes (%) (Auto) 13 % (24-48) 12 % (24-48) Monocytes (%) (Auto) 14 % (0-9) 13 % (0-9) Eosinophils (%) (Auto) 3 % (0-3) 6 % (0-3) Basophils (%) (Auto) 1 % (0-3) 1 % (0-3) Neutrophils # (Auto) 4.4 x10^3/uL (1.8-7.7) 4.1 x10^3/uL (1.8-7.7) Lymphocytes # (Auto) 0.8 x10^3/uL (1.0-4.8) 0.7 x10^3/uL (1.0-4.8) Monocytes # (Auto) 0.9 x10^3/uL (0.0-1.1) 0.7 x10^3/uL (0.0-1.1) Eosinophils # (Auto) 0.2 x10^3/uL (0.0-0.7) 0.3 x10^3/uL (0.0-0.7) Basophils # (Auto) 0.1 x10^3/uL (0.0-0.2) 0.1 x10^3/uL (0.0-0.2) Troponin I High Sensitivity 217 ng/L (4-75) 237 ng/L (4-75) Glucose (Fingerstick) 144 mg/dL (70-99) Sodium Level 134 mmol/L (136-145) Potassium Level 3.7 mmol/L (3.5-5.1) Chloride Level 92 mmol/L (98-107) Carbon Dioxide Level 33 mmol/L (21-32) Anion Gap 9 (6-14) Blood Urea Nitrogen 50 mg/dL (8-26) Creatinine 5.6 mg/dL (0.7-1.3) Estimated GFR (Cockcroft-Gault) 11.3 BUN/Creatinine Ratio 9 (6-20) Glucose Level 184 mg/dL (70-99) Calcium Level 9.0 mg/dL (8.5-10.1) Magnesium Level 2.0 mg/dL (1.8-2.4) Total Bilirubin 0.3 mg/dL (0.2-1.0) Aspartate Amino Transf (AST/SGOT) 12 U/L (15-37) Alanine Aminotransferase (ALT/SGPT) < 6 U/L (16-63) Alkaline Phosphatase 102 U/L (46-116) Total Protein 6.7 g/dL (6.4-8.2) Albumin 1.5 g/dL (3.4-5.0) Albumin/Globulin Ratio 0.3 (1.0-1.7) Test 08/31/21 08:26 08/31/21 12:01 Glucose (Fingerstick) 122 mg/dL (70-99) 178 mg/dL (70-99) Review All relevant outside records, renal labs, imaging studies, telemetry/EKG's were reviewed. Images Images PORTABLE CHEST 1V XR CHEST 1V Clinical History: Reason: weakness / Spl. Instructions: / History: Technique: AP view of the chest was obtained at 08/30/2021 10:02 AM. Comparison: August 11, 2021. Findings: The heart is borderline enlarged. There is reticular nodular opacities throughout the right lung and there is diffuse linear reticular opacities in the left. This blunting of the left costophrenic angle. Impression: Mild left effusion and bilateral infiltrates suggesting atypical pneumonia. This appears similar to the prior study. CHANI DANIELLE MD Aug 31, 2021 12:55
[2021-08-31 15:00] VITALS: BP 116/98
--- NOTE | 2021-08-31 17:30 | NUR ---
NURSING NOTE Pt has order for CT scan. Unable to transport pt down this shift due to staffing shortage, and CT staff unable to come and assist. Will pass on to next shift that pt is still needing to transport downstairs for CT scan.
[2021-08-31 19:30] VITALS: BP 149/88
[2021-08-31] MEDS: GABAPENTIN 300 MG CAPSULE. PO SCH (21:48)
[2021-08-31] MEDS: ATORVASTATIN CALCIUM 40 MG TABLET. PO SCH (21:48)
[2021-08-31] MEDS: QUEtiapine 25 MG TABLET. PO SCH (21:49)
[2021-08-31] MEDS: INSULIN GLARGINE SYRINGE. SQ SCH (21:54)
[2021-08-31 23:15] VITALS: BP 134/84
[2021-09-01 03:30] VITALS: BP 124/65
[2021-09-01] MEDS: LEVOTHYROXINE 100 MCG TABLET PO SCH (06:02)
[2021-09-01 07:00] VITALS: BP 119/70
[2021-09-01] MEDS: MIDODRINE 5 MG TABLET PO SCH ×4 (07:00→17:17)
[2021-09-01 07:20] LABS: CREATININE 6.5 mg/dL (0.7-1.3); GFR 9.5; POTASSIUM 4.9 mmol/L (3.5-5.1)
[2021-09-01] MEDS ORDERED: DIALYSIS PATIENT. MC PRN ×2 (07:30)
[2021-09-01] MEDS ORDERED: IV NORMAL SALINE 1000ML BAG 1,000 ML IV PRN ×2 (07:30)
[2021-09-01] MEDS: SENNOSIDES/DOCUSATE 8.6/50MG TABLET. PO SCH ×2 (08:48→20:01)
[2021-09-01] MEDS: ASCORBIC ACID 500 MG TABLET PO SCH (08:48)
[2021-09-01] MEDS: SERTRALINE 50 MG TABLET. PO SCH (08:48)
[2021-09-01] MEDS: CLOPIDOGREL BISULFATE 75 MG TABLET PO SCH (08:48)
[2021-09-01] MEDS: PANTOPRAZOLE 40 MG TABLET.DR. PO SCH ×2 (08:48→16:45)
[2021-09-01] MEDS: ASPIRIN ENTERIC COATED 81 MG TABLET.DR. PO SCH (08:48)
[2021-09-01] MEDS: AMOXICILLIN/K CLAV 500/125MG TABLET. PO SCH (08:49)
[2021-09-01] MEDS: FOLIC/VIT B COMP W-C (RENAL) TABLET. PO SCH (08:49)
[2021-09-01] MEDS: MULTIVITAMIN with MINERAL TABLET. PO SCH (08:49)
[2021-09-01] MEDS: SEVELAMER CARBONATE 800 MG TABLET. PO SCH ×3 (08:55→17:00)
[2021-09-01] MEDS: FOLIC ACID 1 MG TABLET. PO SCH (08:55)
[2021-09-01] MEDS: INSULIN LISPRO 300 UNITS/3 ML VIAL. SQ SCH ×3 (09:04→17:00)
--- NOTE | 2021-09-01 10:45 | PDOC ---
DATE OF SERVICE DATE: 09/01/21 TIME: 10:39 SUBJECTIVE ROS Seen during dialysis . No complaints OBJECTIVE Vital Signs Vital Signs Date Time Temp Pulse Resp B/P (MAP) Pulse Ox O2 Delivery O2 Flow Rate FiO2 09/01/21 07:00 99.8 99 17 119/70 (86) 99 Nasal Cannula 2.0 99.8 I & 0 Intake and Output 09/01/21 07:00 Intake Total 1160 ml Balance 1160 ml Intake Oral 1160 ml PHYSICAL EXAM Physical Exam General NAD HEEN Head is normocephalic and atraumatic, om moist Neck is supple Lungs diminished breath sounds to all webster, Non labored CV normal S1 and S2 without rubs or gallops Abdomen is soft, nontender Skin is warm and dry Ext without cyanosis, clubbing or edema. left below-knee amputation. Rt TMA Psych appropriate mood and affect and is alert. Neuro Grossly normal No Rodriguez , No CVAor sp tenderness DIAGNOSIS/ASSESSMENT Assessment & Plan ESRD on HD MWF ,. He has been on Dialysis since [address] [facility]- Under Dr Godoy's care( [facility] group) ; seen during dialysis, tolerating well , BP's Low, Has scheduled Midodrine TID, Not Recd this morning . Give Midodrine and Albumin . Discusses with Mauricio CONLEY - cardiology managing Peripheral vascular disease - s/p left BKA and status post right transmetatarsal amputation on 08/22/2021 Anemia- Has Recd PRBC during previous admissions Congestive heart failure- Appears compensated Recent Hx of Pneumonia CAD: reported 2 stents placed about a month ago at [facility] Hx of Hypertension- low BP's was prescribed Midodrine to 10 mg TID at recent hospitalization Poorly controlled type 2 diabetes mellitus, diabetic retinopathy. Ascites and nonalcoholic steatohepatitis - Per [facility] staff he is supposed to be on scheduled paracentesis , non compliant Hx of DVT Hx of Covid-19: Not Vaccinated . Currently PUI Hx of CVA: MRI in 2016 Scattered tiny foci of restricted diffusion in different vascular territories suggesting embolic acute infarcts. COMMENT/RELEVANT DATA Meds Current Medications Medications (Trade) Dose Ordered Sig/Damien Start Time Stop Time Status Last Admin Dose Admin Acetaminophen (Tylenol) 650 mg PRN Q6HRS PRN 08/30/21 19:15 Amoxicillin/ Clavulanate Potassium (Augmentin 500/ 125mg) 1 tab DAILY 08/31/21 09:00 09/01/21 08:49 1 TAB Ascorbic Acid (Vitamin C) 500 mg DAILY 08/31/21 09:00 09/01/21 08:48 500 MG Aspirin (Ecotrin) 81 mg DAILY 08/31/21 09:00 09/01/21 08:48 81 MG Atorvastatin Calcium (Lipitor) 40 mg QHS 08/30/21 21:00 08/31/21 21:48 40 MG Clopidogrel Bisulfate (Plavix) 75 mg DAILY 08/31/21 09:00 09/01/21 08:48 75 MG Dextrose (Dextrose 50%-Water Syringe) 12.5 gm PRN Q15MIN PRN 08/30/21 19:15 Dextrose (Iv Dextrose 5%) 250 ml PRN Q15MIN PRN 08/30/21 19:15 Folic Acid (Folic Acid) 1 mg DAILY 08/31/21 09:00 09/01/21 08:55 1 MG Gabapentin (Neurontin) 300 mg QHS 08/30/21 21:00 08/31/21 21:48 300 MG Hydroxyzine HCl (Atarax) 25 mg PRN Q8HRS PRN 08/30/21 19:15 Info (PHARMACY MONITORING -- do not chart) 1 each PRN DAILY PRN 09/01/21 07:30 Insulin Glargine (Lantus Syringe) 10 unit QHS 08/30/21 21:00 08/31/21 21:54 10 UNIT Insulin Human Lispro (HumaLOG) 0-9 UNITS TIDWMEALS 08/31/21 08:00 09/01/21 09:04 4 UNITS Levothyroxine Sodium (Synthroid) 100 mcg DAILY06 08/31/21 06:00 09/01/21 06:02 100 MCG Midodrine (Proamatine) 10 mg [id number] 08/31/21 07:00 08/31/21 12:50 10 MG Multivitamins (Thera M Plus) 1 tab DAILY 08/31/21 09:00 09/01/21 08:49 1 TAB Olanzapine (ZyPREXA ZYDIS) 5 mg PRN BID PRN 08/30/21 19:15 Ondansetron HCl (Zofran Odt) 4 mg PRN Q6HRS PRN 08/30/21 19:15 Ondansetron HCl (Zofran) 4 mg PRN Q4HRS PRN 08/30/21 19:15 08/31/21 12:49 4 MG Pantoprazole Sodium (Protonix) 40 mg BIDAC 08/31/21 07:30 09/01/21 08:48 40 MG Quetiapine Fumarate (SEROquel) 25 mg HS 08/30/21 21:00 08/31/21 21:49 25 MG Senna/Docusate Sodium (Senna Plus) 2 tab BID 08/30/21 21:00 09/01/21 08:48 2 TAB Sertraline HCl (Zoloft) 100 mg DAILY 08/31/21 09:00 09/01/21 08:48 100 MG Sevelamer Carbonate (Renvela) 800 mg TIDWMEALS 08/31/21 08:00 09/01/21 08:55 800 MG Sodium Chloride 1,000 ml @ 400 mls/hr Q2H30M PRN 09/01/21 07:30 09/01/21 19:29 Tramadol HCl (Ultram) 50 mg PRN Q6HRS PRN 08/30/21 19:15 08/31/21 21:49 50 MG Vitamin B Complex/ Vitamin C (Yajaira-Allan) 1 tab DAILY 08/31/21 09:00 09/01/21 08:49 1 TAB Lab Laboratory Tests Test 08/31/21 12:01 08/31/21 17:25 08/31/21 21:24 09/01/21 06:10 Glucose (Fingerstick) 178 mg/dL (70-99) 124 mg/dL (70-99) 128 mg/dL (70-99) Sodium Level 131 mmol/L (136-145) Potassium Level 4.9 mmol/L (3.5-5.1) Chloride Level 92 mmol/L (98-107) Carbon Dioxide Level 27 mmol/L (21-32) Anion Gap 12 (6-14) Blood Urea Nitrogen 63 mg/dL (8-26) Creatinine 6.5 mg/dL (0.7-1.3) Estimated GFR (Cockcroft-Gault) 9.5 Glucose Level 173 mg/dL (70-99) Calcium Level 9.0 mg/dL (8.5-10.1) Test 09/01/21 07:33 Glucose (Fingerstick) 163 mg/dL (70-99) Results All relevant outside records, renal labs, imaging studies, telemetry/EKG's were reviewed. Justicifation of Admission Dx: Justifications for Admission: Justification of Admission Dx: N/A CHANI DANIELLE MD Sep 01, 2021 10:45
[2021-09-01] MEDS ORDERED: OXYC1TAB15 PO (14:51)
--- NOTE | 2021-09-01 14:54 | SNU/HH DC ---
DISCHARGE ORDERS DISCHARGE INFORMATION: DISCHARGE DATE: Sep 01, 2021 FINAL DIAGNOSIS ESRD weakness chroinc encephalopathy Problems Medical Problems: (1) Anemia Status: Acute (2) Arrhythmia Status: Acute CONDITION ON DISCHARGE: Stable CODE STATUS: Code Status: Full ALF: SNF STAY <30 DAYS: Yes POST DISCHARGE ORDERS: ACTIVITY ORDERS: No restrictions, Other, see below WEIGHT BEARING STATUS: Non weight bearing BATHING ORDERS: Shower-keep dressing dry, No Tub Bath until see Dr. GARCIA AFTER DISCHARGE: Renal WOUND/INCISION CARE: Change dressing CHECKS AFTER DISCHARGE: CHECKS AFTER DISCHARGE: Check blood press - daily, Check blood sugar, ac/hs, Check your Temp as needed TREATMENT/EQUIPMENT ORDERS: ADAPTIVE EQUIPMENT NEEDED: None Physical Therapy For: Evalulation/Treatment Occupational Therapy For: Evaluation/Treatment DISCHARGE MEDICATIONS: Home Meds Active Scripts Oxycodone/Apap 5-325 (PERCOCET 5-325 MG TABLET ) 1 Each Tablet, 1 TAB PO PRN Q6HRS PRN for MODERATE PAIN for 6 Days, #24 TAB Prov:RODERICK HUANG MD 09/01/21 Insulin Glargine,Hum.rec.anlog (LANTUS) 100 Unit/1 Ml Vial, 10 UNIT SQ QHS for D M2 for 30 Days, #30 EACH Prov:KODI MEDEIROS MD 08/25/21 Insulin Aspart (NOVOLOG FLEXPEN) 100 Unit/1 Ml Insuln.pen, 0-9 UNIT SQ TIDAC for DMII for 30 Days, #30 SYR Prov:KODI MEDEIROS MD 08/25/21 Amoxicillin/Potassium Clav (AUGMENTIN 500-125 TABLET) 1 Each Tablet, 1 TAB PO DAILY for MRSA SKIN INFECTION for 10 Days, #10 TAB 0 Refills Prov:KODI MEDEIROS MD 08/25/21 Gabapentin (GABAPENTIN ) 300 Mg Capsule, 300 MG PO QHS for NEUROGENIC PAIN for 30 Days, #30 CAP 3 Refills Prov:KODI MEDEIROS MD 08/25/21 Midodrine Hcl (MIDODRINE HCL) 10 Mg Tablet, 10 MG PO TID for hypotension for 30 Days, #90 TAB Prov:JULIO CÉSAR BOYD MD 06/30/21 Reported Medications Ascorbic Acid (Vitamin C) 500 Mg Capsule, 500 MG PO DAILY for SUPPLEMENT , CAP 08/11/21 Sevelamer Carbonate (RENVELA) 800 Mg Tablet, 1 TAB PO TID for ESRD for 30 Days, #90 TAB 0 Refills 08/11/21 Sennosides/Docusate Sodium (SENNA PLUS TABLET) 1 Each Tablet, 2 TAB PO BID for CONSTIPATION for 14 Days, #56 TAB 0 Refills 08/11/21 Ondansetron (ONDANSETRON ODT) 4 Mg Tab.rapdis, 1 TAB PO PRN Q6HRS PRN for NAUSEA, #16 TAB 08/11/21 Multivitamin With Minerals (MULTIVITAMINS WITH MINERALS) 1 Each Tablet, 1 TAB PO DAILY for SUPPLEMENT for 30 Days, #30 TAB 0 Refills 08/11/21 Levothyroxine Sodium (LEVOTHYROXINE SODIUM) 100 Mcg Tablet, 1 TAB PO DAILY for HYPOTHYROIDISM, #30 TAB 5 Refills 08/11/21 Folic Acid (FOLIC ACID) 0.8 Mg Tablet, 1 MG PO DAILY for SUPPLEMENT, TAB 08/11/21 Acetaminophen (ACETAMINOPHEN) 325 Mg Tablet, 1 TAB PO PRN Q6HRS PRN for pain or fever for 24 Days, #100 TAB 0 Refills 08/11/21 Sertraline Hcl (ZOLOFT) 100 Mg Tablet, 1 TAB PO DAILY for depression, #30 TAB 5 Refills 06/15/21 Quetiapine Fumarate (SEROQUEL) 25 Mg Tablet, 1 TAB PO HS for depression, #30 TAB 2 Refills 06/15/21 Vit B Cmplx 3/Fa/Vit C/Biotin (ANA-GISELL RX TABLET) 1 Each Tablet, 1 TAB PO DA MOOKIE for esrd for 30 Days, #30 TAB 0 Refills 06/15/21 Clopidogrel Bisulfate (CLOPIDOGREL) 75 Mg Tablet, 1 TAB PO DAILY for anticoag, #90 TAB 1 Refill 06/15/21 Pantoprazole Sodium (Pantoprazole Sodium) 40 Mg Tablet.dr, 40 MG PO BID for GERD, TAB.SR 06/15/21 Hydroxyzine Hcl (HYDROXYZINE HCL) 25 Mg Tablet, 1 TAB PO PRN Q8HRS PRN for ITCHING, #30 TAB 06/15/21 Furosemide (FUROSEMIDE) 80 Mg Tablet, 1 TAB PO DAILY for HTN, #30 TAB 5 Refills 06/15/21 Atorvastatin Calcium (ATORVASTATIN CALCIUM) 40 Mg Tablet, 1 TAB PO QHS for HLD, #90 TAB 3 Refills 06/15/21 Aspirin (ASPIRIN EC) 81 Mg Tablet.dr, 1 TAB PO DAILY for heart health, #30 TAB 3 Refills 06/15/21 Discontinued Reported Medications Oxycodone Hcl (OXYCODONE HCL) 5 Mg Capsule, 5 MG PO PRN Q4HRS PRN for PAIN, TAB 0 Refills 08/11/21 Insulin Aspart (NOVOLOG FLEXPEN) 100 Unit/1 Ml Insuln.pen, 15 UNIT SQ TIDBFRMEAL for DM II , SYR 08/11/21 RODERICK HUANG MD Sep 01, 2021 14:54
--- NOTE | 2021-09-01 16:29 | RAD ---
EXAMINATION: CT Chest Without IV contrast. INDICATION:40 years, Male, pleural effusion. COMPARISON: 08/12/2021. TECHNIQUE: Spiral CT was obtained from the jugular notch through the posterior costophrenic recess. 3 -D MIPS, sagittal and coronal reformats were obtained. Exposure: One or more of the following individualized dose reduction techniques were utilized for thi s examination: 1. Automated exposure control 2. Adjustment of the mA and/or kV according to patient size 3. Use of iterative reconstruction technique. FINDINGS: LUNGS/PLEURA: Central airways are patent. Small to moderate left pleural effusion with associated ate lectatic changes. Linear scarring versus atelectatic changes in the left upper lobe and right basilar lung. Diffuse bilateral groundglass opacities with interlobular septal thickening. No pneumothorax. No suspicious pulmonary nodule.. MEDIASTINUM: No pathologic mediastinal or hilar adenopathy. Nonspecific nonenlarged mediastinal lymph nodes. Calcified right hilar lymph node. The thoracic aorta and pulmonary arteries are normal in clau iber. Cardiomegaly. Decreased blood density within the heart, findings can be seen in anemia. No tae cardial effusion. Severe calcified coronary atherosclerosis. Coarse calcification in the left thyroid lobe. Esophagus is unremarkable. AXILLA/SOFT TISSUE: No supraclavicular or axillary adenopathy. There is a 3.4 cm cystic lesion in the subcutaneous tissue of the right posterior chest wall, likely sebaceous cyst. Diffuse anasarca. Symm etric bilateral gynecomastia. UPPER ABDOMEN: Calcified granulomas in the spleen. Small amount of abdominal ascites edema. Atrophic kidneys. BONES: No evidence of acute fractures or aggressive osseous lesions. IMPRESSION: 1. Small to moderate left pleural effusion with associated atelectatic changes. 2. Diffuse bilateral groundglass opacities with interlobular septal thickening, suggestive of pulmon luiz edema. Differential consideration is atypical infection. 3. Cardiomegaly. 4. Severe calcified coronary atherosclerosis. 5. Small amount of abdominal ascites and diffuse anasarca. 6. Decreased blood density within the heart, findings can be seen in anemia. Clinical correlation is advised. Electronically signed by: Hayden Bhat MD (09/01/2021 4:26 PM) [facility]
--- NOTE | 2021-09-01 17:06 | PDOC ---
PROGRESS NOTES Date of Service: DATE: 09/01/21 TIME: 17:03 Subjective Subjective No new complaints Objective Objective Vital Signs Date Time Temp Pulse Resp B/P (MAP) Pulse Ox O2 Delivery O2 Flow Rate FiO2 09/01/21 16:48 93 92/71 09/01/21 08:00 Room Air 09/01/21 07:00 99.8 17 99 2.0 99.8 Intake and Output 09/01/21 07:00 Intake Total 1160 ml Balance 1160 ml Intake Oral 1160 ml Physical Exam Abdomen: Soft Heart: Regular rate Extremities: Other (s/p left BKA and right transmetatarsal amputation) General: Alert, No acute distress HEENT: Atraumatic Lungs: Clear to auscultation MUSCULOSKELETAL: Other Neuro: Normal speech Psych/Mental Status: Mood NL Skin: Other (Sacral ulcer, right heel ulcer, right TMA site with sutures intact) Assessment Assessment 1. Nonsustained ventricular tachycardia: Telemetry after admission showed few more episodes that were brief. Magnesium level within normal limits. 2D echo 06/19/2021 showed normal LV systolic function with EF 55 to 60%. Cardiac catheterization in January 2021 showed patent RCA stent. QTc interval 495, probably secondary to antidepressants - consider changing Seroquel to alternatives if possible. Cannot start beta-kanchan secondary to marginal blood pressure. 2. Non-STEMI most probably demand ischemia. 3. Coronary artery disease s/p PCI/stent to RCA with recent cath showing patent stent as stated above. He is presently chest pain-free. Continue current secondary prevention measures. 4. SSS s/p leadless pacemaker implantation, stable 5. End-stage renal disease on hemodialysis per nephrology team 6. Chronic diastolic heart failure: Clinically well compensated 7. PAD s/p left BKA and and more recent right transmetatarsal amputation 8. Hypertension: Blood pressure borderline low 9. Hyperlipidemia: Continue statins 10. Hypothyroidism: Continue levothyroxine 11. DM2: Treat per IM 12. h/o CVA Plan Plan of Care Problems Medical Problems: (1) Anemia Status: Acute (2) Arrhythmia Status: Acute Comment Review of Relevant I have reviewed the following items juan a (where applicable) has been applied. Labs Laboratory Tests Test 08/31/21 17:25 08/31/21 21:24 09/01/21 06:10 09/01/21 07:33 Glucose (Fingerstick) 124 mg/dL (70-99) 128 mg/dL (70-99) 163 mg/dL (70-99) Sodium Level 131 mmol/L (136-145) Potassium Level 4.9 mmol/L (3.5-5.1) Chloride Level 92 mmol/L (98-107) Carbon Dioxide Level 27 mmol/L (21-32) Anion Gap 12 (6-14) Blood Urea Nitrogen 63 mg/dL (8-26) Creatinine 6.5 mg/dL (0.7-1.3) Estimated GFR (Cockcroft-Gault) 9.5 Glucose Level 173 mg/dL (70-99) Calcium Level 9.0 mg/dL (8.5-10.1) Test 09/01/21 16:26 Glucose (Fingerstick) 166 mg/dL (70-99) Medications Current Medications Info (PHARMACY MONITORING -- do not chart) 1 each PRN DAILY PRN MC SEE COMMENTS; Start 09/01/21 at 07:30; Stop 09/01/21 at 07:45; Status DC Info (PHARMACY MONITORING -- do not chart) 1 each PRN DAILY PRN MC SEE COMMENTS; Start 09/01/21 at 07:30 Lactobacillus Rhamnosus (Culturelle) 1 cap BID PO ; Start 09/01/21 at 21:00 Sodium Chloride 1,000 ml @ 400 mls/hr Q2H30M PRN IV PATENCY; Start 09/01/21 at 07:30; Stop 09/01/21 at 19:29 Sodium Chloride 1,000 ml @ 1,000 mls/hr Q1H PRN IV hypotension; Start 09/01/21 at 07:30; Stop 09/01/21 at 13:29; Status DC Vitals/I & O Vital Sign - Last 24 Hours 08/31/21 08/31/21 08/31/21 08/31/21 18:00 19:30 20:00 21:49 Temp 97.8 97.8 Pulse 90 92 Resp 22 20 B/P (MAP) 116/98 149/88 (108) Pulse Ox 95 95 O2 Delivery Room Air Room Air Room Air O2 Flow Rate 2.0 08/31/21 09/01/21 09/01/21 09/01/21 23:15 03:30 07:00 08:00 Temp 99.1 99.9 99.8 99.1 99.9 99.8 Pulse 98 97 99 Resp 17 B/P (MAP) 134/84 (101) 124/65 (84) 119/70 (86) Pulse Ox 99 100 99 O2 Delivery Nasal Cannula Nasal Cannula Nasal Cannula Room Air O2 Flow Rate 2.0 2.0 2.0 09/01/21 09/01/21 10:46 16:48 Pulse 99 93 B/P (MAP) 119/70 92/71 Intake and Output 08/31/21 08/31/21 09/01/21 15:00 23:00 07:00 Intake Total 500 ml 240 ml 420 ml Balance 500 ml 240 ml 420 ml OMER ORTIZ MD Sep 01, 2021 17:06
--- NOTE | 2021-09-01 19:00 | PDOC ---
[facility] PROGRESS NOTE Date of Service DOS: DATE: 09/01/21 TIME: 18:59 Chief Complaint Chief Complaint Arrhythmia -not notable on EKG interpretation. Will maintain telemetry. Shortness of breath -with cough. He was already on Augmentin for cellulitis to the right foot. Chest radiograph may indicate his pleural effusions worsen contributing to shortness of breath. 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 FEN - Renal ada diet PPX -heparin FULL CODE DIspo - inpatient History of Present Illness History of Present Illness Mr Esparza is a 40-year-old male who has been on dialysis for 4 years, end-stage renal disease, prior cerebrovascular accident; peripheral neuropathy; congestive heart failure; hyperlipidemia; hypertension; asthma; gastroesophageal reflux disease; s/p left BKA; history of depression; diabetes who is a long-term SNF resident who returns to ED from his SNF for concerns for arrhythmia, not feeling well, and anemia with a hemoglobin of 7 and reportedly had 3 runs of vtach reportedly at his facility. Patient notes that he was actually told his heart rate was slow. EKG by my interpretation sinus rhythm rate of [address] depressions in V3 V4 similar to prior and T WI in lead I and aVL similar to prior. QTc 495 Labs with WBC 6.5, Hb 7, platelets 257, NA 135, K3.6, BUN 43, CR 4.6, glucose 147, calcium 9, phosphorus 5, mag 1.8 albumin 1.7, lipase 107 otherwise LFTs within normal laboratory limits, high-sensitivity troponin is 214 and repeat is 237. 08/31: Hb 7.4, still with abdominal swelling that he feels like is bothersome he notes he had outpatient paracentesis before he came here still some shortness of breath. Reviewed his chest films notably he has worsening pleural effusions will obtain CT chest today 09/01, try to DC soon, stable, HD today, CAD< cHF, pleural effusion secodary Vitals/I&O Vitals/I&O: Vital Signs Date Time Temp Pulse Resp B/P (MAP) Pulse Ox O2 Delivery O2 Flow Rate FiO2 09/01/21 16:48 93 92/71 09/01/21 08:00 Room Air 09/01/21 07:00 99.8 17 99 2.0 99.8 I & O 08/31/21 08/31/21 09/01/21 15:00 23:00 07:00 Intake Total 500 ml 240 ml 420 ml Balance 500 ml 240 ml 420 ml Physical Exam General: Alert, No acute distress Heart: Regular rate Lungs: Crackles Abdomen: Soft Extremities: Other (s/p left BKA and right transmetatarsal amputation) Skin: Other (Sacral ulcer, right heel ulcer, right TMA site with sutures intact) Labs Labs: Laboratory Tests Test 08/31/21 21:24 09/01/21 06:10 09/01/21 07:33 09/01/21 16:26 Glucose (Fingerstick) 128 mg/dL (70-99) 163 mg/dL (70-99) 166 mg/dL (70-99) Sodium Level 131 mmol/L (136-145) Potassium Level 4.9 mmol/L (3.5-5.1) Chloride Level 92 mmol/L (98-107) Carbon Dioxide Level 27 mmol/L (21-32) Anion Gap 12 (6-14) Blood Urea Nitrogen 63 mg/dL (8-26) Creatinine 6.5 mg/dL (0.7-1.3) Estimated GFR (Cockcroft-Gault) 9.5 Glucose Level 173 mg/dL (70-99) Calcium Level 9.0 mg/dL (8.5-10.1) Assessment and Plan Assessmemt and Plan Problems Medical Problems: (1) Anemia Status: Acute (2) Arrhythmia Status: Acute Comment Review of Relevant I have reviewed the following items juan a (where applicable) has been applied. Justifications for Admission Other Justification RODERICK HUANG MD Sep 01, 2021 19:00
[2021-09-01 19:20] VITALS: BP 118/72
[2021-09-01] MEDS: ATORVASTATIN CALCIUM 40 MG TABLET. PO SCH (20:01)
[2021-09-01] MEDS: QUEtiapine 25 MG TABLET. PO SCH (20:01)
[2021-09-01] MEDS: LACTOBACILLUS RHAMNOSUS GG 1 CAPSULE. PO SCH (20:01)
[2021-09-01] MEDS: GABAPENTIN 300 MG CAPSULE. PO SCH (20:01)
[2021-09-01] MEDS: traMADol 50 MG TABLET PO PRN (20:01)
[2021-09-01] MEDS: INSULIN GLARGINE SYRINGE. SQ SCH ×2 (21:00→21:29)
[2021-09-01 22:45] VITALS: BP 125/74
[2021-09-02] VITALS (7 sets, daily range): BP systolic 106–170; BP diastolic 69–108
[2021-09-02] MEDS: LEVOTHYROXINE 100 MCG TABLET PO SCH (05:41)
[2021-09-02] MEDS: PANTOPRAZOLE 40 MG TABLET.DR. PO SCH ×2 (05:41→17:45)
[2021-09-02] MEDS: MIDODRINE 5 MG TABLET PO SCH ×3 (05:47→18:00)
[2021-09-02] MEDS: INSULIN LISPRO 300 UNITS/3 ML VIAL. SQ SCH ×3 (08:00→17:47)
[2021-09-02] MEDS: FOLIC ACID 1 MG TABLET. PO SCH (09:05)
[2021-09-02] MEDS: MULTIVITAMIN with MINERAL TABLET. PO SCH (09:05)
[2021-09-02] MEDS: ASPIRIN ENTERIC COATED 81 MG TABLET.DR. PO SCH (09:05)
[2021-09-02] MEDS: SENNOSIDES/DOCUSATE 8.6/50MG TABLET. PO SCH ×2 (09:05→20:11)
[2021-09-02] MEDS: SEVELAMER CARBONATE 800 MG TABLET. PO SCH ×3 (09:05→17:45)
[2021-09-02] MEDS: CLOPIDOGREL BISULFATE 75 MG TABLET PO SCH (09:05)
[2021-09-02] MEDS: LACTOBACILLUS RHAMNOSUS GG 1 CAPSULE. PO SCH ×2 (09:05→20:08)
[2021-09-02] MEDS: ASCORBIC ACID 500 MG TABLET PO SCH (09:06)
[2021-09-02] MEDS: AMOXICILLIN/K CLAV 500/125MG TABLET. PO SCH (09:06)
[2021-09-02] MEDS: SERTRALINE 50 MG TABLET. PO SCH (09:06)
[2021-09-02] MEDS: traMADol 50 MG TABLET PO PRN ×2 (09:06→20:08)
[2021-09-02] MEDS: FOLIC/VIT B COMP W-C (RENAL) TABLET. PO SCH (09:10)
--- NOTE | 2021-09-02 12:02 | PDOC ---
ELMER ALEXANDER CARPORT ERECTOR 09/02/21 1202: CARDIO Progress Notes Date and Time Date of Service 09/02/21 Time of Evaluation 1200 Subjective Subjective: No Chest Pain, No shortness of breath, No Palpitations Vitals Vitals Vital Signs Date Time Temp Pulse Resp B/P (MAP) Pulse Ox O2 Delivery O2 Flow Rate FiO2 09/02/21 10:59 98.7 89 17 141/74 (96) 92 Room Air 98.7 09/01/21 07:00 2.0 Weight Weight [ ] Input and Output Intake and Output Intake and Output 09/02/21 07:00 Intake Total 960 ml Balance 960 ml Intake Oral 960 ml Laboratory Labs Laboratory Tests Test 09/01/21 16:26 09/01/21 20:49 09/02/21 07:28 09/02/21 11:40 Glucose (Fingerstick) 166 mg/dL (70-99) 115 mg/dL (70-99) 119 mg/dL (70-99) 139 mg/dL (70-99) Physical Exam HEENT: Neck Supple W Full Motion Chest: Symmetric LUNGS: Other (diminished bases) Heart: S1S2, RRR Abdomen: Soft N/T Extremities: Other (left BKA, right MTA- sutures intact, sacral ulcer, right heel ulcer ) Neurology: alert, follow commands Assessment Assessment 1. Nonsustained ventricular tachycardia: Telemetry with very brief bursts of NSVT. Mg WNL. Echo 06/19/2021 showed normal LV systolic function with EF 55 to 60%. Cardiac catheterization in January 2021 showed patent RCA stent. QTc interval 495, probably secondary to antidepressants - consider changing Seroquel to alternatives if possible. Cannot start beta-kanchan secondary to marginal blood pressure. 2. Non-STEMI most probably demand ischemia. 3. Coronary artery disease s/p PCI/stent to RCA with recent cath showing patent stent. He is presently chest pain-free. Continue current secondary prevention measures. 4. SSS s/p leadless pacemaker implantation, stable 5. End-stage renal disease on hemodialysis per nephrology team 6. Chronic diastolic heart failure: Clinically well compensated 7. PAD s/p left BKA and and more recent right transmetatarsal amputation 8. Hypertension: Blood pressure borderline low 9. Hyperlipidemia: Continue statins 10. Hypothyroidism: Continue levothyroxine 11. DM2: Treat per IM 12. h/o CVA 13. Anemia of chronic disease; no obvious bleeding Justicifation of Admission Dx: Justifications for Admission: Justification of Admission Dx: N/A OMER ORTIZ MD 09/02/21 1639: CARDIO Progress Notes Assessment Assessment Patient seen and examined. Agree with LATCHER's assessment and plan as stated above. ELMER ALEXANDER CARPORT ERECTOR Sep 02, 2021 12:02 OMER ORTIZ MD Sep 02, 2021 16:39
--- NOTE | 2021-09-02 12:34 | PDOC ---
[facility] [facility] PROGRESS NOTE Date of Service DOS: DATE: 09/02/21 TIME: 12:33 Chief Complaint Chief Complaint Arrhythmia -not notable on EKG interpretation. Will maintain telemetry. Shortness of breath -with cough. He was already on Augmentin for cellulitis to the right foot. Chest radiograph may indicate his pleural effusions worsen contributing to shortness of breath. 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 FEN - Renal ada diet PPX -heparin FULL CODE DIspo - inpatient History of Present Illness History of Present Illness Mr Esparza is a 40-year-old male who has been on dialysis for 4 years, end-stage renal disease, prior cerebrovascular accident; peripheral neuropathy; congestive heart failure; hyperlipidemia; hypertension; asthma; gastroesophageal reflux disease; s/p left BKA; history of depression; diabetes who is a long-term SNF resident who returns to ED from his SNF for concerns for arrhythmia, not feeling well, and anemia with a hemoglobin of 7 and reportedly had 3 runs of vtach reportedly at his facility. Patient notes that he was actually told his heart rate was slow. EKG by my interpretation sinus rhythm rate of [address] depressions in V3 V4 similar to prior and T WI in lead I and aVL similar to prior. QTc 495 Labs with WBC 6.5, Hb 7, platelets 257, NA 135, K3.6, BUN 43, CR 4.6, glucose 147, calcium 9, phosphorus 5, mag 1.8 albumin 1.7, lipase 107 otherwise LFTs within normal laboratory limits, high-sensitivity troponin is 214 and repeat is 237. 08/31: Hb 7.4, still with abdominal swelling that he feels like is bothersome he notes he had outpatient paracentesis before he came here still some shortness of breath. Reviewed his chest films notably he has worsening pleural effusions will obtain CT chest today 09/01, try to DC soon, stable, HD today, CAD< cHF, pleural effusion secodary 09/02, feeding self, still weak, needs rehab, poor mobility, he dislikes [facility], would lik to goto [facility], Vitals/I&O Vitals/I&O: Vital Signs Date Time Temp Pulse Resp B/P (MAP) Pulse Ox O2 Delivery O2 Flow Rate FiO2 09/02/21 10:59 98.7 89 17 141/74 (96) 92 Room Air 98.7 09/01/21 07:00 2.0 I & O 09/01/21 09/01/21 09/02/21 15:00 23:00 07:00 Intake Total 300 ml 300 ml 360 ml Balance 300 ml 300 ml 360 ml Physical Exam General: Alert, No acute distress Heart: Regular rate Lungs: Crackles Abdomen: Soft Extremities: Other (s/p left BKA and right transmetatarsal amputation) Skin: Other (Sacral ulcer, right heel ulcer, right TMA site with sutures intact) Labs Labs: Laboratory Tests Test 09/01/21 16:26 09/01/21 20:49 09/02/21 07:28 09/02/21 11:40 Glucose (Fingerstick) 166 mg/dL (70-99) 115 mg/dL (70-99) 119 mg/dL (70-99) 139 mg/dL (70-99) Assessment and Plan Assessmemt and Plan Problems Medical Problems: (1) Anemia Status: Acute (2) Arrhythmia Status: Acute Comment Review of Relevant I have reviewed the following items juan a (where applicable) has been applied. Medications: Current Medications Medications (Trade) Dose Ordered Sig/Damien Route PRN Reason Start Time Stop Time Status Last Admin Dose Admin Lactobacillus Rhamnosus (Culturelle) 1 cap BID PO 09/01/21 21:00 09/02/21 09:05 Justifications for Admission Other Justification RODERICK HUANG MD Sep 02, 2021 12:34
--- NOTE | 2021-09-02 12:37 | NUR ---
SS following for discharge planning. SS reviewed pt chart and discussed with pt RN. Pt is skilled rehabilitation resident from [facility] in [place], ; fax [phone]. Pt is currently on room air. PT/OT ordered. COVID19 PCR test pending for placement. Established hemodialysis. Cardiology and Nephrology following. SS will continue to follow for discharge planning.
--- NOTE | 2021-09-02 14:02 | PDOC ---
DATE OF SERVICE DATE: 09/02/21 TIME: 13:59 SUBJECTIVE ROS Resting comfortably . No Acute concerns OBJECTIVE Vital Signs Vital Signs Date Time Temp Pulse Resp B/P (MAP) Pulse Ox O2 Delivery O2 Flow Rate FiO2 09/02/21 13:00 89 141/74 09/02/21 10:59 98.7 17 92 Room Air 98.7 09/01/21 07:00 2.0 I & 0 Intake and Output 09/02/21 07:00 Intake Total 960 ml Balance 960 ml Intake Oral 960 ml PHYSICAL EXAM Physical Exam eral NAD HEEN Head is normocephalic and atraumatic, om moist Neck is supple Lungs diminished breath sounds to all webster, Non labored CV normal S1 and S2 without rubs or gallops Abdomen is soft, nontender Skin is warm and dry Ext without cyanosis, clubbing or edema. left below-knee amputation. Rt TMA Psych appropriate mood and affect and is alert. Neuro Grossly normal No Rodriguez , No CVAor sp tenderness DIAGNOSIS/ASSESSMENT Assessment & Plan ESRD on HD MWF , on Dialysis since 2016 @ [facility]- Under Dr Godoy's care( [facility]'s group) No indication for dialysis today \ Nonsustained ventricular tachycardia- Card recommendations - 2D echo 06/19/2021 showed normal LV systolic function with EF 55 to 60%. Cardiac catheterization in January 2021 showed patent RCA stent. QTc interval 495, probably secondary to antidepressants - consider changing Seroquel to alternatives if possible. Cannot start beta-kanchan secondary to marginal blood pressure. Peripheral vascular disease - s/p left BKA and status post right transmetatarsal amputation on 08/22/2021 Anemia- Has Recd PRBC during previous admissions Congestive heart failure- Appears compensated Recent Hx of Pneumonia CAD: reported 2 stents placed about a month ago at [facility] Hx of Hypertension- low BP's was prescribed Midodrine to 10 mg TID at recent hospitalization Poorly controlled type 2 diabetes mellitus, diabetic retinopathy. Ascites and nonalcoholic steatohepatitis - Per [facility] staff he is supposed to be on scheduled paracentesis , non compliant Hx of DVT Hx of Covid-19: Not Vaccinated . Currently PUI Hx of CVA: MRI in 2016 Scattered tiny foci of restricted diffusion in different vascular territories suggesting embolic acute infarcts. COMMENT/RELEVANT DATA Meds Current Medications Medications (Trade) Dose Ordered Sig/Damien Start Time Stop Time Status Last Admin Dose Admin Acetaminophen (Tylenol) 650 mg PRN Q6HRS PRN 08/30/21 19:15 Amoxicillin/ Clavulanate Potassium (Augmentin 500/ 125mg) 1 tab DAILY 08/31/21 09:00 09/02/21 09:06 1 TAB Ascorbic Acid (Vitamin C) 500 mg DAILY 08/31/21 09:00 09/02/21 09:06 500 MG Aspirin (Ecotrin) 81 mg DAILY 08/31/21 09:00 09/02/21 09:05 81 MG Atorvastatin Calcium (Lipitor) 40 mg QHS 08/30/21 21:00 09/01/21 20:01 40 MG Clopidogrel Bisulfate (Plavix) 75 mg DAILY 08/31/21 09:00 09/02/21 09:05 75 MG Dextrose (Dextrose 50%-Water Syringe) 12.5 gm PRN Q15MIN PRN 08/30/21 19:15 Dextrose (Iv Dextrose 5%) 250 ml PRN Q15MIN PRN 08/30/21 19:15 Folic Acid (Folic Acid) 1 mg DAILY 08/31/21 09:00 09/02/21 09:05 1 MG Gabapentin (Neurontin) 300 mg QHS 08/30/21 21:00 09/01/21 20:01 300 MG Hydroxyzine HCl (Atarax) 25 mg PRN Q8HRS PRN 08/30/21 19:15 Info (PHARMACY MONITORING -- do not chart) 1 each PRN DAILY PRN 09/01/21 07:30 Insulin Glargine (Lantus Syringe) 10 unit QHS 08/30/21 21:00 09/01/21 21:00 5 UNIT Insulin Human Lispro (HumaLOG) 0-9 UNITS TIDWMEALS 08/31/21 08:00 09/01/21 16:55 4 UNITS Lactobacillus Rhamnosus (Culturelle) 1 cap BID 09/01/21 21:00 09/02/21 09:05 1 CAP Levothyroxine Sodium (Synthroid) 100 mcg DAILY06 08/31/21 06:00 09/02/21 05:41 100 MCG Midodrine (Proamatine) 10 mg [id number] 08/31/21 07:00 09/02/21 05:47 10 MG Multivitamins (Thera M Plus) 1 tab DAILY 08/31/21 09:00 09/02/21 09:05 1 TAB Olanzapine (ZyPREXA ZYDIS) 5 mg PRN BID PRN 08/30/21 19:15 Ondansetron HCl (Zofran Odt) 4 mg PRN Q6HRS PRN 08/30/21 19:15 Ondansetron HCl (Zofran) 4 mg PRN Q4HRS PRN 08/30/21 19:15 08/31/21 12:49 4 MG Pantoprazole Sodium (Protonix) 40 mg BIDAC 08/31/21 07:30 09/02/21 05:41 40 MG Quetiapine Fumarate (SEROquel) 25 mg HS 08/30/21 21:00 09/01/21 20:01 25 MG Senna/Docusate Sodium (Senna Plus) 2 tab BID 08/30/21 21:00 09/02/21 09:05 2 TAB Sertraline HCl (Zoloft) 100 mg DAILY 08/31/21 09:00 09/02/21 09:06 100 MG Sevelamer Carbonate (Renvela) 800 mg TIDWMEALS 08/31/21 08:00 09/02/21 13:09 800 MG Sodium Chloride 1,000 ml @ 400 mls/hr Q2H30M PRN 09/01/21 07:30 09/01/21 19:29 DC Tramadol HCl (Ultram) 50 mg PRN Q6HRS PRN 08/30/21 19:15 09/02/21 09:06 50 MG Vitamin B Complex/ Vitamin C (Yajaira-Allan) 1 tab DAILY 08/31/21 09:00 09/02/21 09:10 1 TAB Lab Laboratory Tests Test 09/01/21 16:26 09/01/21 20:49 09/02/21 07:28 09/02/21 11:40 Glucose (Fingerstick) 166 mg/dL (70-99) 115 mg/dL (70-99) 119 mg/dL (70-99) 139 mg/dL (70-99) Results All relevant outside records, renal labs, imaging studies, telemetry/EKG's were reviewed. Justicifation of Admission Dx: Justifications for Admission: Justification of Admission Dx: N/A CHANI DANIELLE MD Sep 02, 2021 14:02
[2021-09-02] MEDS: QUEtiapine 25 MG TABLET. PO SCH (20:08)
[2021-09-02] MEDS: ATORVASTATIN CALCIUM 40 MG TABLET. PO SCH (20:08)
[2021-09-02] MEDS: GABAPENTIN 300 MG CAPSULE. PO SCH (20:08)
[2021-09-02] MEDS: INSULIN GLARGINE SYRINGE. SQ SCH (20:11)
[2021-09-03 02:50] VITALS: BP 107/70
[2021-09-03] MEDS: LEVOTHYROXINE 100 MCG TABLET PO SCH (05:49)
[2021-09-03] MEDS: PANTOPRAZOLE 40 MG TABLET.DR. PO SCH ×2 (05:49→16:57)
[2021-09-03] MEDS: MIDODRINE 5 MG TABLET PO SCH ×2 (05:59→13:00)
[2021-09-03 07:00] VITALS: BP 121/86
[2021-09-03] MEDS: SEVELAMER CARBONATE 800 MG TABLET. PO SCH ×3 (08:00→16:57)
[2021-09-03] MEDS: INSULIN LISPRO 300 UNITS/3 ML VIAL. SQ SCH ×3 (08:00→17:00)
[2021-09-03] MEDS ORDERED: DIALYSIS PATIENT. MC PRN (08:30)
[2021-09-03] MEDS ORDERED: IV NORMAL SALINE 1000ML BAG 1,000 ML IV PRN ×2 (08:30)
[2021-09-03] MEDS: CLOPIDOGREL BISULFATE 75 MG TABLET PO SCH (09:00)
[2021-09-03] MEDS: MULTIVITAMIN with MINERAL TABLET. PO SCH (09:00)
[2021-09-03] MEDS: SENNOSIDES/DOCUSATE 8.6/50MG TABLET. PO SCH (09:00)
[2021-09-03] MEDS: ASCORBIC ACID 500 MG TABLET PO SCH (09:00)
[2021-09-03] MEDS: ASPIRIN ENTERIC COATED 81 MG TABLET.DR. PO SCH (09:00)
[2021-09-03] MEDS: LACTOBACILLUS RHAMNOSUS GG 1 CAPSULE. PO SCH (09:00)
[2021-09-03] MEDS: SERTRALINE 50 MG TABLET. PO SCH (09:00)
[2021-09-03] MEDS: FOLIC/VIT B COMP W-C (RENAL) TABLET. PO SCH (09:00)
[2021-09-03] MEDS: AMOXICILLIN/K CLAV 500/125MG TABLET. PO SCH (09:00)
[2021-09-03] MEDS: FOLIC ACID 1 MG TABLET. PO SCH (09:00)
--- NOTE | 2021-09-03 10:00 | PDOC ---
DATE OF SERVICE DATE: 09/03/21 TIME: 10:00 SUBJECTIVE ROS Resting comfortably . No Acute concerns on dialysis OBJECTIVE Vital Signs Vital Signs Date Time Temp Pulse Resp B/P (MAP) Pulse Ox O2 Delivery O2 Flow Rate FiO2 09/03/21 05:59 92 101/77 09/03/21 02:50 98.4 20 94 Room Air 98.4 I & 0 Intake and Output 09/03/21 07:00 Intake Total 940 ml Balance 940 ml Intake Oral 940 ml # Bowel Movements 1 PHYSICAL EXAM Physical Exam khalif WHITE Head is normocephalic and atraumatic, om moist Neck is supple Lungs diminished breath sounds to all webster, Non labored CV normal S1 and S2 without rubs or gallops Abdomen is soft, nontender Skin is warm and dry Ext without cyanosis, clubbing or edema. left below-knee amputation. Rt TMA Psych appropriate mood and affect and is alert. Neuro Grossly normal No Rodriguez , No CVAor sp tenderness DIAGNOSIS/ASSESSMENT Assessment & Plan ESRD on HD MWF , on Dialysis since 2016 @ [facility]- Under Dr Godoy's care( [facility]'s group) . Seen on dialysis , tolerating well. Continue as ordered. José Antonio CANO Nonsustained ventricular tachycardia- Card recommendations - 2D echo 06/19/2021 showed normal LV systolic function with EF 55 to 60%. Cardiac catheterization in January 2021 showed patent RCA stent. QTc interval 495, probably secondary to antidepressants - consider changing Seroquel to alternatives if possible. Cannot start beta-kanchan secondary to marginal blood pressure. Peripheral vascular disease - s/p left BKA and status post right transmetatarsal amputation on 08/22/2021 Anemia- Has Recd PRBC during previous admissions Congestive heart failure- Appears compensated Recent Hx of Pneumonia CAD: reported 2 stents placed about a month ago at [facility] Hx of Hypertension- low BP's was prescribed Midodrine to 10 mg TID at recent hospitalization Poorly controlled type 2 diabetes mellitus, diabetic retinopathy. Ascites and nonalcoholic steatohepatitis - Per [facility] staff he is supposed to be on scheduled paracentesis , non compliant Hx of DVT Hx of Covid-19: Not Vaccinated . Currently PUI Hx of CVA: MRI in 2016 Scattered tiny foci of restricted diffusion in different vascular territories suggesting embolic acute infarcts. COMMENT/RELEVANT DATA Meds Current Medications Medications (Trade) Dose Ordered Sig/Damien Start Time Stop Time Status Last Admin Dose Admin Acetaminophen (Tylenol) 650 mg PRN Q6HRS PRN 08/30/21 19:15 Amoxicillin/ Clavulanate Potassium (Augmentin 500/ 125mg) 1 tab DAILY 08/31/21 09:00 09/02/21 09:06 1 TAB Ascorbic Acid (Vitamin C) 500 mg DAILY 08/31/21 09:00 09/02/21 09:06 500 MG Aspirin (Ecotrin) 81 mg DAILY 08/31/21 09:00 09/02/21 09:05 81 MG Atorvastatin Calcium (Lipitor) 40 mg QHS 08/30/21 21:00 09/02/21 20:08 40 MG Clopidogrel Bisulfate (Plavix) 75 mg DAILY 08/31/21 09:00 09/02/21 09:05 75 MG Dextrose (Dextrose 50%-Water Syringe) 12.5 gm PRN Q15MIN PRN 08/30/21 19:15 Dextrose (Iv Dextrose 5%) 250 ml PRN Q15MIN PRN 08/30/21 19:15 Folic Acid (Folic Acid) 1 mg DAILY 08/31/21 09:00 09/02/21 09:05 1 MG Gabapentin (Neurontin) 300 mg QHS 08/30/21 21:00 09/02/21 20:08 300 MG Hydroxyzine HCl (Atarax) 25 mg PRN Q8HRS PRN 08/30/21 19:15 Info (PHARMACY MONITORING -- do not chart) 1 each PRN DAILY PRN 09/03/21 08:30 Insulin Glargine (Lantus Syringe) 10 unit QHS 08/30/21 21:00 09/02/21 20:11 10 UNIT Insulin Human Lispro (HumaLOG) 0-9 UNITS TIDWMEALS 08/31/21 08:00 09/02/21 17:47 5 UNITS Lactobacillus Rhamnosus (Culturelle) 1 cap BID 09/01/21 21:00 09/02/21 20:08 1 CAP Levothyroxine Sodium (Synthroid) 100 mcg DAILY06 08/31/21 06:00 09/03/21 05:49 100 MCG Midodrine (Proamatine) 10 mg [id number] 08/31/21 07:00 09/03/21 05:59 10 MG Multivitamins (Thera M Plus) 1 tab DAILY 08/31/21 09:00 09/02/21 09:05 1 TAB Olanzapine (ZyPREXA ZYDIS) 5 mg PRN BID PRN 08/30/21 19:15 Ondansetron HCl (Zofran Odt) 4 mg PRN Q6HRS PRN 08/30/21 19:15 Ondansetron HCl (Zofran) 4 mg PRN Q4HRS PRN 08/30/21 19:15 08/31/21 12:49 4 MG Pantoprazole Sodium (Protonix) 40 mg BIDAC 08/31/21 07:30 09/03/21 05:49 40 MG Quetiapine Fumarate (SEROquel) 25 mg HS 08/30/21 21:00 09/02/21 20:08 25 MG Senna/Docusate Sodium (Senna Plus) 2 tab BID 08/30/21 21:00 09/02/21 09:05 2 TAB Sertraline HCl (Zoloft) 100 mg DAILY 08/31/21 09:00 09/02/21 09:06 100 MG Sevelamer Carbonate (Renvela) 800 mg TIDWMEALS 08/31/21 08:00 09/02/21 17:45 800 MG Sodium Chloride 1,000 ml @ 400 mls/hr Q2H30M PRN 09/03/21 08:30 09/03/21 20:29 Tramadol HCl (Ultram) 50 mg PRN Q6HRS PRN 08/30/21 19:15 09/02/21 20:08 50 MG Vitamin B Complex/ Vitamin C (Yajaira-Allan) 1 tab DAILY 08/31/21 09:00 09/02/21 09:10 1 TAB Lab Laboratory Tests Test 09/02/21 10:39 09/02/21 11:40 09/02/21 16:40 09/02/21 20:07 Coronavirus (COVID-19)(PCR) Positive (NOT DETECTD) Glucose (Fingerstick) 139 mg/dL (70-99) 218 mg/dL (70-99) 202 mg/dL (70-99) Test 09/03/21 07:18 Glucose (Fingerstick) 170 mg/dL (70-99) Results All relevant outside records, renal labs, imaging studies, telemetry/EKG's were reviewed. Justicifation of Admission Dx: Justifications for Admission: Justification of Admission Dx: N/A CHANI DANIELLE MD Sep 03, 2021 10:00
--- NOTE | 2021-09-03 10:30 | PDOC ---
ELMER ALEXANDER [employer] CON[employer]TER OPERATOR HELPER 09/03/21 1030: CARDIO Progress Notes Date and Time Date of Service 09/03/21 Time of Evaluation 1020 Subjective Subjective: No Chest Pain, No shortness of breath, No Palpitations Vitals Vitals Vital Signs Date Time Temp Pulse Resp B/P (MAP) Pulse Ox O2 Delivery O2 Flow Rate FiO2 09/03/21 07:00 97.4 93 20 121/86 (98) 93 Room Air 97.4 Weight Weight [ ] Input and Output Intake and Output Intake and Output 09/03/21 07:00 Intake Total 940 ml Balance 940 ml Intake Oral 940 ml # Bowel Movements 1 Laboratory Labs Laboratory Tests Test 09/02/21 10:39 09/02/21 11:40 09/02/21 16:40 09/02/21 20:07 Coronavirus (COVID-19)(PCR) Positive (NOT DETECTD) Glucose (Fingerstick) 139 mg/dL (70-99) 218 mg/dL (70-99) 202 mg/dL (70-99) Test 09/03/21 07:18 Glucose (Fingerstick) 170 mg/dL (70-99) Physical Exam HEENT: Neck Supple W Full Motion Chest: Symmetric LUNGS: Other (diminished bases) Heart: S1S2, RRR Abdomen: Soft N/T Extremities: Other (left BKA, right MTA- sutures intact, sacral ulcer, right heel ulcer ) Neurology: alert, follow commands Assessment Assessment 1. Nonsustained ventricular tachycardia: Telemetry with very brief bursts of NSVT. Mg WNL. Echo 06/19/2021 showed normal LV systolic function with EF 55 to 60%. Cardiac catheterization in January 2021 showed patent RCA stent. QTc interval 495, probably secondary to antidepressants - consider changing Seroquel to alternatives if possible. Cannot start beta-kanchan secondary to marginal blood pressure. 2. Non-STEMI most probably demand ischemia. 3. Coronary artery disease s/p PCI/stent to RCA with recent cath showing patent stent. He is presently chest pain-free. Continue current secondary prevention measures. 4. SSS s/p leadless pacemaker implantation, stable 5. End-stage renal disease on hemodialysis per nephrology team 6. Chronic diastolic heart failure: Clinically well compensated 7. PAD s/p left BKA and and more recent right transmetatarsal amputation 8. Hypertension: Blood pressure borderline low 9. Hyperlipidemia: Continue statins 10. Hypothyroidism: Continue levothyroxine 11. DM2: Treat per IM 12. h/o CVA 13. Anemia of chronic disease; no obvious bleeding 14. COVID + Justicifation of Admission Dx: Justifications for Admission: Justification of Admission Dx: N/A OMER ORTIZ MD 09/03/214: CARDIO Progress Notes Assessment Assessment Patient seen and examined. Agree with [employer]RESPONDENCE S[employer]OL TE[employer]ER's assessment and plan as stated above. ELMER ALEXANDER CAT[employer] CONVERTER OPERATOR HELPER Sep 03, 2021 10:30 OMER ORTIZ MD Sep 03, 2021 21:04
[2021-09-03 11:04] LABS: CALCIUM 8.8 mg/dL (8.5-10.1); CREATININE 5.5 mg/dL (0.7-1.3); GFR 11.5; POTASSIUM 5.4 mmol/L (3.5-5.1)
--- NOTE | 2021-09-03 12:24 | SNU/HH DC ---
DISCHARGE ORDERS DISCHARGE INFORMATION: DISCHARGE DATE: Sep 01, 2021 FINAL DIAGNOSIS Arrhythmia -not notable Will maintain telemetry. Shortness of breath -with cough. 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 GARCIA AFTER DISCHARGE: Renal WOUND/INCISION CARE: Change dressing CHECKS AFTER DISCHARGE: CHECKS AFTER DISCHARGE: Check blood press - daily, Check blood sugar, ac/hs, Check your Temp as needed TREATMENT/EQUIPMENT ORDERS: ADAPTIVE EQUIPMENT NEEDED: None Physical Therapy For: Evalulation/Treatment Occupational Therapy For: Evaluation/Treatment DISCHARGE MEDICATIONS: Home Meds Active Scripts Oxycodone/Apap 5-325 (PERCOCET 5-325 MG TABLET ) 1 Each Tablet, 1 TAB PO PRN Q6HRS PRN for MODERATE PAIN for 6 Days, #24 TAB Prov:RODERICK HUANG MD 09/01/21 Insulin Glargine,Hum.rec.anlog (LANTUS) 100 Unit/1 Ml Vial, 10 UNIT SQ QHS for DM2 for 30 Days, #30 EACH Prov:KODI MEDEIROS MD 08/25/21 Insulin Aspart (NOVOLOG FLEXPEN) 100 Unit/1 Ml Insuln.pen, 0-9 UNIT SQ TIDAC for DMII for 30 Days, #30 SYR Prov:KODI MEDEIROS MD 08/25/21 Amoxicillin/Potassium Clav (AUGMENTIN 500-125 TABLET) 1 Each Tablet, 1 TAB PO DAILY for MRSA SKIN INFECTION for 10 Days, #10 TAB 0 Refills Prov:KODI MEDEIROS MD 08/25/21 Gabapentin (GABAPENTIN ) 300 Mg Capsule, 300 MG PO QHS for NEUROGENIC PAIN for 30 Days, #30 CAP 3 Refills Prov:KODI MEDEIROS MD 08/25/21 Midodrine Hcl (MIDODRINE HCL) 10 Mg Tablet, 10 MG PO TID for hypotension for 30 Days, #90 TAB Prov:JULIO CÉSAR BOYD MD 06/30/21 Reported Medications Ascorbic Acid (Vitamin C) 500 Mg Capsule, 500 MG PO DAILY for SUPPLEMENT , CAP 08/11/21 Sevelamer Carbonate (RENVELA) 800 Mg Tablet, 1 TAB PO TID for ESRD for 30 Days, #90 TAB 0 Refills 08/11/21 Sennosides/Docusate Sodium (SENNA PLUS TABLET) 1 Each Tablet, 2 TAB PO BID for CONSTIPATION for 14 Days, #56 TAB 0 Refills 08/11/21 Ondansetron (ONDANSETRON ODT) 4 Mg Tab.rapdis, 1 TAB PO PRN Q6HRS PRN for NAUSEA, #16 TAB 08/11/21 Multivitamin With Minerals (MULTIVITAMINS WITH MINERALS) 1 Each Tablet, 1 TAB PO DAILY for SUPPLEMENT for 30 Days, #30 TAB 0 Refills 08/11/21 Levothyroxine Sodium (LEVOTHYROXINE SODIUM) 100 Mcg Tablet, 1 TAB PO DAILY for HYPOTHYROIDISM, #30 TAB 5 Refills 08/11/21 Folic Acid (FOLIC ACID) 0.8 Mg Tablet, 1 MG PO DAILY for SUPPLEMENT, TAB 08/11/21 Acetaminophen (ACETAMINOPHEN) 325 Mg Tablet, 1 TAB PO PRN Q6HRS PRN for pain or fever for 24 Days, #100 TAB 0 Refills 08/11/21 Sertraline Hcl (ZOLOFT) 100 Mg Tablet, 1 TAB PO DAILY for depression, #30 TAB 5 Refills 06/15/21 Quetiapine Fumarate (SEROQUEL) 25 Mg Tablet, 1 TAB PO HS for depression, #30 TAB 2 Refills 06/15/21 Vit B Cmplx 3/Fa/Vit C/Biotin (ANA-GISELL RX TABLET) 1 Each Tablet, 1 TAB PO DAILY for esrd for 30 Days, #30 TAB 0 Refills 06/15/21 Clopidogrel Bisulfate (CLOPIDOGREL) 75 Mg Tablet, 1 TAB PO DAILY for anticoag, #90 TAB 1 Refill 06/15/21 Pantoprazole Sodium (Pantoprazole Sodium) 40 Mg Tablet.dr, 40 MG PO BID for GERD, TAB.SR 06/15/21 Hydroxyzine Hcl (HYDROXYZINE HCL) 25 Mg Tablet, 1 TAB PO PRN Q8HRS PRN for ITCHING, #30 TAB 06/15/21 Furosemide (FUROSEMIDE) 80 Mg Tablet, 1 TAB PO DAILY for HTN, #30 TAB 5 Refills 06/15/21 Atorvastatin Calcium (ATORVASTATIN CALCIUM) 40 Mg Tablet, 1 TAB PO QHS for HLD, #90 TAB 3 Refills 06/15/21 Aspirin (ASPIRIN EC) 81 Mg Tablet., 1 TAB PO DAILY for heart health, #30 TAB 3 Refills 06/15/21 RODERICK HUANG MD Sep 03, 2021 12:24
--- NOTE | 2021-09-03 12:25 | PDOC ---
[employer] PROGRESS NOTE Date of Service DOS: DATE: 09/03/21 TIME: 12:24 Chief Complaint Chief Complaint Shortness of breath -with cough. on Augmentin for cellulitis Diabetic toe ulceration and gangrene to right toes digits 1-3, -status post right transmetatarsal amputation on 08/22/2021 Peripheral vascular disease - s/p left BKA and recent right TMA Anemia consistent with ESRD Chronic respiratory failure with hypoxia - with cor pulmonale ESRD on HD DM2 - sliding scale Stage III sacral decubitus ulcer, POA H/o CVA - residual left sided weakness and near blindness - marked weakness and debility, needs assist with ADLs HLD - Statin Chronic diastolic CHF - not clinically fluid overloaded Severe protein calorie malnutrition - enceourage PO History of Present Illness History of Present Illness Mr Esparza is a 40-year-old male who has been on dialysis for 4 years, end-stage renal disease, prior cerebrovascular accident; peripheral neuropathy; congestive heart failure; hyperlipidemia; hypertension; asthma; gastroesophageal reflux disease; s/p left BKA; history of depression; diabetes who is a long-term SNF resident who returns to ED from his SNF for concerns for arrhythmia, not feeling well, and anemia with a hemoglobin of 7 and reportedly had 3 runs of vtach reportedly at his facility. Patient notes that he was actually told his heart rate was slow. EKG by my interpretation sinus rhythm rate of [address] depressions in V3 V4 similar to prior and T WI in lead I and aVL similar to prior. QTc 495 Labs with WBC 6.5, Hb 7, platelets 257, NA 135, K3.6, BUN 43, CR 4.6, glucose 147, calcium 9, phosphorus 5, mag 1.8 albumin 1.7, lipase 107 otherwise LFTs within normal laboratory limits, high-sensitivity troponin is 214 and repeat is 237. 08/31: Hb 7.4, still with abdominal swelling that he feels like is bothersome he notes he had outpatient paracentesis before he came here still some shortness of breath. Reviewed his chest films notably he has worsening pleural effusions will obtain CT chest today 09/01, try to DC soon, stable, HD today, CAD< cHF, pleural effusion secodary 09/02, feeding self, still weak, needs rehab, poor mobility, he dislikes [facility], would lik to goto [facility], Vitals/I&O Vitals/I&O: Vital Signs Date Time Temp Pulse Resp B/P (MAP) Pulse Ox O2 Delivery O2 Flow Rate FiO2 09/03/21 08:00 Room Air 09/03/21 07:00 97.4 93 20 121/86 (98) 93 97.4 I & O 09/02/21 09/02/21 09/03/21 15:00 23:00 07:00 Intake Total 300 ml 300 ml 340 ml Balance 300 ml 300 ml 340 ml Physical Exam General: Alert, Oriented X3, Cooperative, No acute distress Heart: Regular rate Lungs: Crackles Abdomen: Soft Extremities: Other (s/p left BKA and right transmetatarsal amputation) Skin: Other (Sacral ulcer, right heel ulcer, right TMA site with sutures intact) Labs Labs: Laboratory Tests Test 09/02/21 16:40 09/02/21 20:07 09/03/21 07:18 09/03/21 10:15 Glucose (Fingerstick) 218 mg/dL (70-99) 202 mg/dL (70-99) 170 mg/dL (70-99) Sodium Level 136 mmol/L (136-145) Potassium Level 5.4 mmol/L (3.5-5.1) Chloride Level 98 mmol/L (98-107) Carbon Dioxide Level 27 mmol/L (21-32) Anion Gap 11 (6-14) Blood Urea Nitrogen 46 mg/dL (8-26) Creatinine 5.5 mg/dL (0.7-1.3) Estimated GFR (Cockcroft-Gault) 11.5 Glucose Level 161 mg/dL (70-99) Calcium Level 8.8 mg/dL (8.5-10.1) Assessment and Plan Assessmemt and Plan Problems Medical Problems: (1) Anemia Status: Acute (2) Arrhythmia Status: Acute Comment Review of Relevant I have reviewed the following items juan a (where applicable) has been applied. Justifications for Admission Other Justification RODERICK HUANG MD Sep 03, 2021 12:25
--- NOTE | 2021-09-03 15:07 | NUR ---
SS following up with discharge planning. SS reviewed pt chart and discussed with pt RN. Pt is from [facility] in [place], ; fax [phone]. COVID19 recovered. Pt has outpatient hemodialysis at [facility] in [place], ; fax [phone]. Pt currently off the floor and in dialysis. PT/OT recommended senior care unit. Discharge orders received and sent to facility with updated clinical. SS contacted Lars at [facility] notifying him of discharge and am currently awaiting transportation time from facility. Pt's RN notified. SS will continue to follow for discharge planning.
[2021-09-03] MEDS: traMADol 50 MG TABLET PO PRN (16:58)
--- NOTE | 2021-09-03 17:27 | NUR ---
Wound/Ostomy Care Wound Type/Assessment: wound consult for multiple wounds. 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 He also has DFU to right heel that is eschar covered. His coccyx has stage III PU. Cleansed, pictured and measured for discharge, an redressed wounds. Treatment Recommendations/Plan: Coccyx- apply skin prep, hydrocolloid and foam dressing. Change every 2-3 days Right heel- paint with Betadine, pad with ABD and rolled gauze. Change every 2-3 days. Abdomen- paint with Betadine and leave KIMANI. Education provided: PU prevention, WC POC Offloading surface/device: TQ2H, Float heel or wear heel medix boot Recommended Referrals/Tests: na Discharge Recommendations for dressings: see above
--- NOTE | 2021-09-03 17:52 | NUR ---
Report called into [place] [employer] material handlers planned for [id number]. Packet will be going with patient.
--- NOTE | 2021-09-03 18:30 | NUR ---
pt discharged via medical transport via wheelchair. pt transported off unit with all belongings.
--- NOTE | 2021-09-12 09:04 | PDOC3 ---
Discharge Summary Visit Information Date of Admission: Aug 30, 2021 Date of Discharge: Sep 03, 2021 Final Diagnosis Nonsustained ventricular tachycardia: NSTEMI 2, demand Shortness of breath -with cough. on Augmentin for cellulitis Diabetic toe ulceration and gangrene to right toes digits 1-3, -status post right transmetatarsal amputation on 08/22/2021 Peripheral vascular disease - s/p left BKA and recent right TMA Anemia consistent with ESRD Chronic respiratory failure with hypoxia - with cor pulmonale ESRD on HD DM2 - sliding scale Stage III sacral decubitus ulcer, POA H/o CVA - residual left sided weakness and near blindness - marked weakness and debility, needs assist with ADLs HLD - Statin Chronic diastolic CHF - not clinically fluid overloaded Severe protein calorie malnutrition - ongoing marked weakness and debility hypothyroid on replacement Problems Medical Problems: (1) Anemia Status: Acute (2) Arrhythmia Status: Acute Brief Hospital Course Allergies Allergies Coded Allergies Type Severity Reaction Last Updated Verified metoclopramide Allergy Intermediate 09/10/21 Yes Brief Hospital Course Mr. Esparza is a 41 old male (birthday on ) who has been on dialysis for 4 years, end-stage renal disease, prior cerebrovascular accident; peripheral neuropathy; congestive heart failure; hyperlipidemia; hypertension; asthma; gastroesophageal reflux disease; s/p left BKA; history of depression; diabetes who is a long-term SNF admit for new arrhythmia, not feeling well, and anemia with a hemoglobin of 7 short runs of VTACH, had marked weakness, needs rehab, very frail for age CV note on , Nonsustained ventricular tachycardia: Telemetry with very brief bursts of NSVT. Echo 06/19/2021 showed normal LV systolic function with EF 55 to 60%. Cardiac catheterization in January 2021 showed patent RCA stent. QTc interval 495, Discharge Information Condition at Discharge: Improved Follow Up: Weeks Disposition/Orders: D/C to Another Facility Scheduled Amoxicillin/Potassium Clav (Augmentin 500-125 Tablet) 1 Each Tablet, 1 TAB PO DAILY for MRSA SKIN INFECTION for 10 Days, #10 Ref 0 Prescribed by: KODI MEDEIROS MD on 08/25/21 1402 Last Action: Continued on 08/30/211912 by KODI MEDEIROS MD Ascorbic Acid (Vitamin C) 500 Mg Capsule, 500 MG PO DAILY for SUPPLEMENT , (Reported) Entered as Reported by: SABA BAH on 08/11/211154 Last Action: Converted on 08/30/211912 by KODI MEDEIROS MD Aspirin (Aspirin Ec) 81 Mg Tablet.dr, 1 TAB PO DAILY for heart health, #30 Ref 3 (Reported) Entered as Reported by: FRANTZ GAVIRIA RN on 06/15/211951 Last Action: Continued on 08/30/211912 by KODI MEDEIROS MD Atorvastatin Calcium (Atorvastatin Calcium) 40 Mg Tablet, 1 TAB PO QHS for HLD, #90 Ref 3 (Reported) Entered as Reported by: FRANTZ GAVIRIA RN on 06/15/211951 Last Action: Continued on 08/30/211912 by KODI MEDEIROS MD Clopidogrel Bisulfate (Clopidogrel) 75 Mg Tablet, 1 TAB PO DAILY for anticoag, #90 Ref 1 (Reported) Entered as Reported by: FRANTZ GAVIRIA RN on 06/15/211951 Last Action: Continued on 08/30/211912 by KODI MEDEIROS MD Folic Acid (Folic Acid) 0.8 Mg Tablet, 1 MG PO DAILY for SUPPLEMENT, (Reported) Entered as Reported by: SABA BAH on 08/11/211154 Last Action: Converted on 08/30/211912 by KODI MEDEIROS MD Furosemide (Furosemide) 80 Mg Tablet, 1 TAB PO DAILY for HTN, #30 Ref 5 (Reported) Entered as Reported by: FRANTZ GAVIRIA RN on 06/15/211951 Last Action: Reviewed on 08/30/211813 by OSBALDO FUENTES RN Gabapentin (Gabapentin ) 300 Mg Capsule, 300 MG PO QHS for NEUROGENIC PAIN for 30 Days, #30 Ref 3 Prescribed by: KODI MEDEIROS MD on 08/25/211401 Last Action: Continued on 08/30/211912 by KODI MEDEIROS MD Insulin Aspart (Novolog Flexpen) 100 Unit/1 Ml Insuln.pen, 0-9 UNIT SQ TIDAC for DMII for 30 Days, #30 Prescribed by: KODI MEDEIROS MD on 08/25/211401 Last Action: Reviewed on 08/30/211813 by OSBALDO FUENTES RN Insulin Glargine,Hum.rec.anlog (Lantus) 100 Unit/1 Ml Vial, 10 UNIT SQ QHS for DM2 for 30 Days, #30 Prescribed by: KODI MEDEIROS MD on 08/25/21 1402 Last Action: Continued on 08/30/211912 by KODI MEDEIROS MD Levothyroxine Sodium (Levothyroxine Sodium) 100 Mcg Tablet, 1 TAB PO DAILY for HYPOTHYROIDISM, #30 Ref 5 (Reported) Entered as Reported by: SABA BAH on 08/11/211154 Last Action: Continued on 08/30/211912 by KODI MEDEIROS MD Midodrine Hcl (Midodrine Hcl) 10 Mg Tablet, 10 MG PO TID for hypotension for 30 Days, #90 Prescribed by: DEB ANGELA on 06/30/21 1001 Last Action: Converted on 08/30/211912 by KODI MEDEIROS MD Multivitamin With Minerals (Multivitamins With Minerals) 1 Each Tablet, 1 TAB PO DAILY for SUPPLEMENT for 30 Days, #30 Ref 0 (Reported) Entered as Reported by: SABA BAH on 08/11/211154 Last Action: Converted on 08/30/211912 by KODI MEDEIROS MD Pantoprazole Sodium (Pantoprazole Sodium) 40 Mg Tablet.dr, 40 MG PO BID for GERD, (Reported) Entered as Reported by: FRANTZ GAVIRIA RN on 06/15/211951 Last Action: Continued on 08/30/211912 by OKDI MEDEIROS MD Quetiapine Fumarate (Seroquel) 25 Mg Tablet, 1 TAB PO HS for depression, #30 Ref 2 (Reported) Entered as Reported by: FRANTZ GAVIRIA RN on 06/15/211951 Last Action: Continued on 08/30/211912 by KODI MEDEIROS MD Sennosides/Docusate Sodium (Senna Plus Tablet) 1 Each Tablet, 2 TAB PO BID for CONSTIPATION for 14 Days, #56 Ref 0 (Reported) Entered as Reported by: SABA BAH on 08/11/211154 Last Action: Continued on 08/30/211912 by KODI MEDEIROS MD Sertraline Hcl (Zoloft) 100 Mg Tablet, 1 TAB PO DAILY for depression, #30 Ref 5 (Reported) Entered as Reported by: FRANTZ GAVIRIA RN on 06/15/211951 Last Action: Converted on 08/30/211912 by KODI MEDEIROS MD Sevelamer Carbonate (Renvela) 800 Mg Tablet, 1 TAB PO TID for ESRD for 30 Days, #90 Ref 0 (Reported) Entered as Reported by: SABA BAH on 08/11/211154 Last Action: Continued on 08/30/211912 by KODI MEDEIROS MD Vit B Cmplx 3/Fa/Vit C/Biotin (Yajaira-Allan Rx Tablet) 1 Each Tablet, 1 TAB PO DAILY for esrd for 30 Days, #30 Ref 0 (Reported) Entered as Reported by: FRANTZ GAVIRIA RN on 06/15/211951 Last Action: Converted on 08/30/211912 by KODI MEDEIROS MD Scheduled PRN Acetaminophen (Acetaminophen) 325 Mg Tablet, 1 TAB PO PRN Q6HRS PRN for pain or fever for 24 Days, #100 Ref 0 (Reported) Entered as Reported by: SABA BAH on 08/11/211154 Last Action: Reviewed on 08/30/211813 by OSBALDO FUENTES RN Hydroxyzine Hcl (Hydroxyzine Hcl) 25 Mg Tablet, 1 TAB PO PRN Q8HRS PRN for ITCHING, #30 (Reported) Entered as Reported by: FRANTZ GAVIRIA RN on 06/15/211951 Last Action: Continued on 08/30/211912 by KODI MEDEIROS MD Ondansetron (Ondansetron Odt) 4 Mg Tab.rapdis, 1 TAB PO PRN Q6HRS PRN for NAUSEA, #16 (Reported) Entered as Reported by: SABA BAH on 08/11/211154 Last Action: Continued on 08/30/211912 by KODI MEDEIROS MD Oxycodone/Apap 5-325 (Percocet 5-325 Mg Tablet ) 1 Each Tablet, 1 TAB PO PRN Q6HRS PRN for MODERATE PAIN for 6 Days, #24 Prescribed by: RODERICK HUANG on 09/01/21 1684 Patient Instructions Patient Instructions pt seen face to tface on day of DC, 32 minutes total time f/u primary this week at [facility] consider change Seroquel for sleep, Justicifation of Admission Dx: Justifications for Admission: Justification of Admission Dx: N/A RODERICK HUANG MD Sep 12, 2021 09:04
== END 2021-09-03 19:33 | DRG 280 ==
LOC: ER 09:22 → 6 SOUTH 16:02
PROVIDERS: ADMIT Internal Medicine; ATTEND Internal Medicine
DX: I47.2 Ventricular tachycardia (principal); U07.1 COVID-19; I21.A1 Myocardial infarction type 2; L89.153 Pressure ulcer of sacral region, stage 3; E43 Unspecified severe protein-calorie malnutrition; N18.6 End stage renal disease; I13.2 Hypertensive heart and chronic kidney disease with heart failure and with stage 5 chronic kidney disease, or end stage renal disease; L03.115 Cellulitis of right lower limb; J96.11 Chronic respiratory failure with hypoxia; R18.8 Other ascites; I50.32 Chronic diastolic (congestive) heart failure; D63.8 Anemia in other chronic diseases classified elsewhere; E03.9 Hypothyroidism, unspecified; E11.22 Type 2 diabetes mellitus with diabetic chronic kidney disease; E11.42 Type 2 diabetes mellitus with diabetic polyneuropathy; E11.43 Type 2 diabetes mellitus with diabetic autonomic (poly)neuropathy; E11.51 Type 2 diabetes mellitus with diabetic peripheral angiopathy without gangrene; E78.5 Hyperlipidemia, unspecified; H54.7 Unspecified visual loss; I25.10 Atherosclerotic heart disease of native coronary artery without angina pectoris; I25.2 Old myocardial infarction; I27.81 Cor pulmonale (chronic); E11.319 Type 2 diabetes mellitus with unspecified diabetic retinopathy without macular edema; I49.5 Sick sinus syndrome; J45.909 Unspecified asthma, uncomplicated; K31.84 Gastroparesis; F32.A Depression, unspecified; G47.33 Obstructive sleep apnea (adult) (pediatric); G62.9 Polyneuropathy, unspecified; K21.9 Gastro-esophageal reflux disease without esophagitis; L97.509 Non-pressure chronic ulcer of other part of unspecified foot with unspecified severity; Z88.8 Allergy status to other drugs, medicaments and biological substances; D64.9 Anemia, unspecified; K75.81 Nonalcoholic steatohepatitis (NASH); Z91.19 Patient's noncompliance with other medical treatment and regimen; Z86.73 Personal history of transient ischemic attack (TIA), and cerebral infarction without residual deficits; Z89.512 Acquired absence of left leg below knee; Z95.5 Presence of coronary angioplasty implant and graft; Z99.2 Dependence on renal dialysis; Z68.33 Body mass index [BMI] 33.0-33.9, adult
CPT/HCPCS: 36415; 71045; 71250; 80048; 80053; 82962; 83690; 83735; 84100; 84484; 85025; 85610; 87426; 93005; 96374; J1815; J2405; U0003; 97530-GP; 99285-25; G0378

== ENCOUNTER 2021-09-10 14:53 | Inpatient (IN) | payer OTHER, MEDICAID ==
[~2021-09-10] VITALS: Ht 185.4 cm; Wt 110.0 kg
--- NOTE | 2021-09-10 15:49 | RAD ---
AP chest. HISTORY: Cough AP view of the chest was compared with a study from August 30. Patient rotated to the left. A small lef t pleural effusion. There is pulmonary vascular congestion. There are mild interstitial changes from mild edema or interstitial infiltrates. Pattern is similar to the recent prior study except for mild increased vascular congestion. IMPRESSION: 1. Left pleural effusion. 2. Mild increased vascular congestion. 3. Persistent interstitial lung disease. Electronically signed by: Hans Drew MD (09/10/2021 3:47 PM) [facility]
--- NOTE | 2021-09-10 16:48 | RAD ---
Exam: CT of abdomen and pelvis without contrast INDICATION: Abdominal pain TECHNIQUE: Sequential axial images through the abdomen and pelvis obtained without IV contrast. Sagit gi and coronal reformatted images were reconstructed from the axial data and reviewed. Exposure: One or more of the following in the visualized dose reduction techniques were utilized for this examination: 1. Automated exposure control 2. Adjustment of the MA and/or KV according to patient size 3. Use of iterative of reconstructive technique Comparisons: 08/12/2021 FINDINGS: Heart size is normal. Small pericardial effusion. There is a small left pleural effusion with strandy left basilar atelectasis. Evaluation of solid abdominal organs is limited secondary to noncontrast technique. Liver, pancreas, gallbladder and adrenals are unremarkable. Spleen is enlarged measuring 15.3 cm in l abi axis. No perinephric inflammation or hydronephrosis. Kidneys are markedly atrophic bilaterally. No renal or ureteral calculi are identified. Bladder is decompressed not well evaluated. Prostate is not enlarged. Large and small bowel are unremarkable. There is a large amount of intra-abdominal ascites. No free i ntra-abdominal air. Abdominal aorta has a normal course and caliber. Scattered calcified atherosclerotic plaque is noted. No enlarged intra-abdominal lymph nodes are identified. No suspicious osseous lesions or acute fractures. IMPRESSION: 1. Large amount of intra-abdominal ascites. 2. Moderate left pleural effusion with adjacent atelectasis. 3. Other stable findings as described above. Electronically signed by: Frank Chong MD (09/10/2021 4:45 PM) [facility]
--- NOTE | 2021-09-10 17:58 | PHYS DOC ---
Past Medical History Past Medical History: Anemia, Diabetes-Type II, Heart Disease, Renal Failure Additional Past Medical Histor: NSTEMI, CHRONIC RESP FAIL, GASTROPARESIS, MRSA, MIKHAIL, ASCITES, PVD,ULCE Past Surgical History: Pacemaker, Other Additional Past Surgical Histo: stent placement x2, L eye, L BKA, AV FISTULA DIOR,RT TOES AMPUTATION X 5 Smoking Status: Former Smoker Alcohol Use: None General Adult EDM: Chief Complaint: ABDOMINAL PAIN HPI: HPI: Patient is a 41 year old male with history of diabetes type 2, hypertension, high cholesterol, end-stage kidney disease on dialysis Wednesday last dialyzed on Wednesday presenting today from alf to be evaluated for 7 out of 10 sharp intermittent epigastric and periumbilical abdominal pain, symptoms have been going on since yesterday. Patient denies any nausea, vomiting. He states the pain was so severe today he did not go to his dialysis session. He reports a recent history of right toes amputation but does not remember when and where it was done. Denies any fever, coughing or congestion. Review of Systems: Review of Systems: Constitutional: Denies fever or chills. [] Eyes: Denies change in visual acuity. [] HENT: Denies nasal congestion or sore throat. [] Respiratory: Denies cough or shortness of breath. [] Cardiovascular: Denies chest pain or edema. [] GI: Reports abdominal pain, denies nausea, vomiting, bloody stools or diarrhea. [] : Denies dysuria. [] Musculoskeletal: Denies back pain or joint pain. [] Integument: Denies rash. [] Neurologic: Denies headache, focal weakness or sensory changes. [] Psychiatric: Denies depression or anxiety. [] Heart Score: C/O Chest Pain: N/A Risk Factors: Risk Factors: DM, Current or recent (<one month) smoker, HTN, HLP, family history of CAD, obesity. Risk Scores: Score 0 - 3: 2.5% MACE over next 6 weeks - Discharge Home Score 4 - 6: 20.3% MACE over next 6 weeks - Admit for Clinical Observation Score 7 - 10: 72.7% MACE over next 6 weeks - Early Invasive Strategies Current Medications: Current Medications Medications (Trade) Dose Ordered Sig/Damien Start Time Stop Time Status Last Admin Dose Admin Morphine Sulfate (Morphine Sulfate) 4 mg PRN Q15MIN PRN 09/10/21 15:30 09/11/21 15:29 Allergies: Allergies: Allergies Coded Allergies Type Severity Reaction Last Updated Verified metoclopramide Allergy Intermediate 09/10/21 Yes Physical Exam: PE: Constitutional: Well developed, well nourished, no acute distress, non-toxic appearance. [] HENT: Normocephalic, atraumatic, bilateral external ears normal, oropharynx moist, no oral exudates, nose normal. [] Eyes: PERRLA, EOMI, conjunctiva normal, no discharge. [] Neck: Normal range of motion, no tenderness, supple, no stridor. [] Cardiovascular: Dialysis fistula left upper extremity with positive bruit and thrill, heart rate regular rhythm Lungs & Thorax: Bilateral breath sounds clear to auscultation [] Abdomen Rounded ascites appearing abdomen, bowel sounds normal, soft, diffuse tenderness to epigastric and upper abdomen, no right lower quadrant or left lower quadrant tenderness, no masses, no pulsatile masses. [] Skin: Warm, dry, no erythema, no rash. [] Back: No tenderness, no CVA tenderness. [] Extremities: No tenderness, no cyanosis, no clubbing, right toe amputation noted with well approximated laceration site with stitches. No signs of infection. Left below the knee amputation. Neurologic: Alert and oriented X 3, normal motor function, normal sensory function, no focal deficits noted. [] Psychologic: Affect normal, judgement normal, mood normal. [] Current Patient Data: Vital Signs: Vital Signs Date Time Temp Pulse Resp B/P (MAP) Pulse Ox O2 Delivery O2 Flow Rate FiO2 09/10/21 14:58 98.8 90 22 135/80 (98) 99 Room Air 98.8 EKG: EK interpreted by Dr. Munguia sinus rhythm heart rate 94 no STEMI [address] Munguia sinus rhythm heart rate 92 no STEMI Radiology/Procedures: Radiology/Procedures: []PROCEDURE: PORTABLE CHEST 1V AP chest. HISTORY: Cough AP view of the chest was compared with a study from August 30. Patient rotated to the left. A small left pleural effusion. There is pulmonary vascular congestion. There are mild interstitial changes from mild edema or interstitial infiltr ates. Pattern is similar to the recent prior study except for mild increased vascular congestion. IMPRESSION: 1. Left pleural effusion. 2. Mild increased vascular congestion. 3. Persistent interstitial lung disease. Electronically signed by: Hans Drew MD (09/10/2021 3:47 PM) [facility] DICTATED and SIGNED BY: HANS DREW MD DATE: 09/10/21 1545 PROCEDURE: CT ABDOMEN PELVIS WO CONTRAST Exam: CT of abdomen and pelvis without contrast INDICATION: Abdominal pain TECHNIQUE: Sequential axial images through the abdomen and pelvis obtained without IV contrast. Sagittal and coronal reformatted images were reconstructed from the axial data and reviewed. Exposure: One or more of the following in the visualized dose reduction techniques were utilized for this examination: 1. Automated exposure control 2. Adjustment of the MA and/or KV according to patient size 3. Use of iterative of reconstructive technique Comparisons: 08/12/2021 FINDINGS: Heart size is normal. Small pericardial effusion. There is a small left pleural effusion with strandy left basilar atelectasis. Evaluation of solid abdominal organs is limited secondary to noncontrast technique. Liver, pancreas, gallbladder and adrenals are unremarkable. Spleen is enlarged measuring 15.3 cm in long axis. No perinephric inflammation or hydronephrosis. Kidneys are markedly atrophic bilaterally. No renal or ureteral calculi are identified. Bladder is decompressed not well evaluated. Prostate is not enlarged. Large and small bowel are unremarkable. There is a large amount of intra- abdominal ascites. No free intra-abdominal air. Abdominal aorta has a normal course and caliber. Scattered calcified atherosclerotic plaque is noted. No enlarged intra-abdominal lymph nodes are identified. No suspicious osseous lesions or acute fractures. IMPRESSION: 1. Large amount of intra-abdominal ascites. 2. Moderate left pleural effusion with adjacent atelectasis. 3. Other stable findings as described above. Electronically signed by: Frank Lee MD (09/10/2021 4:45 PM) [facility] DICTATED and SIGNED BY: FRANK LEE MD DATE: 09/10/21 1637 Course & Med Decision Making: Course & Med Decision Making Pertinent Labs and Imaging studies reviewed. (See chart for details) This is a 41-year-old male patient presenting to the ED today to be evaluated for abdominal pain that began yesterday. Patient missed dialysis today due to pain. Vitals on arrival to the ED temperature 98.8, heart rate 90, respiration 22 on room air, O2 sats 99%, blood pressure 135/80 CBC with a normal WBC, hemoglobin 7.8 with hematocrit of 24.4, calcium 10.2, glucose 268, high-sensitivity [id number] likely from kidney disease, patient has no chest pain, EKG is negative. BNP over 35,000. Chest x-ray interpreted by radiologist left pleural effusion. Mild increased vascular congestion. Persistent interstitial lung disease. CT of the abdomen and pelvis large amount of intra-abdominal ascites. Moderate left pleural effusion with adjacent atelectasis. Spoke to Dr. Chun who accepted patient for admission. Requested consult for interventional radiology, routine consult also placed for cardiology and nephrology. BrandBacker Disclaimer: BrandBacker Disclaimer: This electronic medical record was generated, in whole or in part, using a voice recognition dictation system. Departure Departure Impression: Primary Impression: ESRD (end stage renal disease) Additional Impressions: Volume overload Qualified Codes: E87.70 - Fluid overload, unspecified Ascites Qualified Codes: R18.8 - Other ascites Pleural effusion on left Disposition: ADMITTED INPATIENT Condition: STABLE Referrals: SOY MAYER MD (PCP) NÉSTOR CUENCA OXYGEN EQUIPMENT AIDE Sep 10, 2021 17:58
[2021-09-10 18:01] LABS: BASO % 0 % (0-3); EOS # 0.3 x10^3/uL (0.0-0.7); EOS % 4 % (0-3); HEMATOCRIT 24.4 % (39.0-53.0); HEMOGLOBIN 7.8 g/dL (13.0-17.5); LYMPH # 0.6 x10^3/uL (1.0-4.8); LYMPH % 7 % (24-48); MEAN CORPUSCULAR HEMOGLOBIN 29 pg (25-35); MEAN CORPUSCULAR HGB CONC 32 g/dL (31-37); MEAN CORPUSCULAR VOLUME 91 fL (79-100); MONO # 0.7 x10^3/uL (0.0-1.1); MONO % 8 % (0-9); NEUT # 7.6 x10^3/uL (1.8-7.7); NEUT % 82 % (31-73); PLATELET COUNT 491 x10^3/uL (140-400); RED BLOOD COUNT 2.69 x10^6/uL (4.30-5.70); RED CELL DISTRIBUTION WIDTH 19.6 % (11.5-14.5); WHITE BLOOD COUNT 9.4 x10^3/uL (4.0-11.0)
[2021-09-10] MEDS: MORPHINE SULFATE 4 MG/ML INJ. IV/SQ PRN ×2 (18:06→22:14)
[2021-09-10 18:31] LABS: CALCIUM 10.2 mg/dL (8.5-10.1); CREATININE 6.4 mg/dL (0.7-1.3); GFR 9.6; POTASSIUM 4.8 mmol/L (3.5-5.1)
[2021-09-10 18:34] LABS: ALBUMIN/GLOBULIN RATIO 0.4 (1.0-1.7); MAGNESIUM 2.1 mg/dL (1.8-2.4); TOTAL BILIRUBIN 0.5 mg/dL (0.2-1.0); TOTAL PROTEIN 7.4 g/dL (6.4-8.2)
[2021-09-10] MEDS ORDERED: ONDANSETRON PF 4 MG/2 ML VIAL. IVP PRN (22:00)
[2021-09-10] MEDS ORDERED: CETIRIZINE HCL 10 MG TABLET. PO STA (22:46)
[2021-09-10] MEDS ORDERED: CETIRIZINE HCL 10 MG TABLET. PO PRN (23:00)
[2021-09-10 23:25] VITALS: BP 125/94
[2021-09-11] VITALS (10 sets, daily range): BP systolic 83–153; BP diastolic 16–51
[2021-09-11] MEDS: hydrOXYzine 25 MG TABLET PO PRN (02:03)
[2021-09-11] MEDS: MORPHINE SULFATE 4 MG/ML INJ. IVP PRN ×3 (02:04→19:49)
[2021-09-11] MEDS ORDERED: C.DIFF MED SCREEN BY RX. MC ONE (04:45)
--- NOTE | 2021-09-11 06:22 | NUR ---
Pharmacy Medication Review S: Consulted for medication review re: C.diff Risk Assessment score of 7 O: ADRIANA GARLAND is a 41 year old with: Previous C.diff infection: No Previous hospitalization: Within 30 days Recent antibiotics: Within 30 days Use of gastric acid suppressor: Yes Transfer from VT/LTAC: Yes Current antibiotic regimen: NONE Current acid suppression regimen: pantoprazole (home med not yet reordered) A: Patient has been identified as having risk factors for C.diff infection as noted above. P: ABX DE-ESCALATION RECOMMENDED: PT NOT ON ABX PROBIOTIC ORDERED: N/A PPI CHANGED TO [id number]: N/A (HOME MEDS NOT REORDERED BUT PT NOT ON ABX) JC MCINTOSH [facility] [place], 09/11/21 [id number]
--- NOTE | 2021-09-11 07:51 | EKG ---
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
--- NOTE | 2021-09-11 07:52 | EKG ---
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
[2021-09-11 08:43] LABS: BASO # 0.1 x10^3/uL (0.0-0.2); BASO % 1 % (0-3); EOS # 0.5 x10^3/uL (0.0-0.7); EOS % 7 % (0-3); HEMATOCRIT 24.1 % (39.0-53.0); HEMOGLOBIN 7.9 g/dL (13.0-17.5); LYMPH # 0.8 x10^3/uL (1.0-4.8); LYMPH % 10 % (24-48); MEAN CORPUSCULAR HEMOGLOBIN 30 pg (25-35); MEAN CORPUSCULAR HGB CONC 33 g/dL (31-37); MEAN CORPUSCULAR VOLUME 92 fL (79-100); MONO # 0.8 x10^3/uL (0.0-1.1); MONO % 11 % (0-9); NEUT # 5.4 x10^3/uL (1.8-7.7); NEUT % 71 % (31-73); PLATELET COUNT 403 x10^3/uL (140-400); RED BLOOD COUNT 2.64 x10^6/uL (4.30-5.70); RED CELL DISTRIBUTION WIDTH 19.2 % (11.5-14.5); WHITE BLOOD COUNT 7.6 x10^3/uL (4.0-11.0)
[2021-09-11] MEDS ORDERED: IV NORMAL SALINE 1000ML BAG 1,000 ML IV PRN ×2 (08:45)
[2021-09-11] MEDS ORDERED: DIALYSIS PATIENT. MC PRN ×2 (08:45)
--- NOTE | 2021-09-11 08:48 | PDOC1 ---
History and Physical Date of Admission Date of Admission DATE: 09/11/21 TIME: 08:41 Identification/Chief Complaint Chief Complaint Shortness of breath abdominal swelling Source Source: Patient History of Present Illness History of Present Illness Mr Esparza is a 41yo male who has been on dialysis for 4 years, end-stage renal disease, prior cerebrovascular accident; peripheral neuropathy; congestive heart failure; hyperlipidemia; hypertension; asthma; gastroesophageal reflux disease; s/p left BKA; history of depression; diabetes who is a long-term SNF resident who returns to ED from his SNF for concerns for 7 out of 10 sharp intermittent epigastric and periumbilical abdominal pain not feeling well. Labs with NA 131, K4.8, BUN 62, CR 6.4, glucose 268, calcium 10.2, mag 2.1, bilirubin 0.5, AST 74, ALT 61, alkaline phosphatase 220, albumin 2 lipase 167, TSH 1.4, NT proBNP greater than 35,000, high-sensitivity troponin initially 212 on repeat 228 and subsequent 240, rapid COVID-19 negative Chest radiograph left pleural effusion vascular congestion, noncontrast CT abdomen pelvis large amount of intra-abdominal ascites. Past Medical History Cardiovascular: CAD, HTN CENTRAL NERVOUS SYSTEM: Periperal neuropathy Heme/Onc: Anemia NOS, Other Renal/: Chronic renal failure Endocrine: Diabetes Past Surgical History Past Surgical History: Other (Left extremity AV fistula) Family History Family History: Heart Disease Social History Smoke: No ALCOHOL: none Drugs: None Current Problem List Problem List Problems Medical Problems: (1) Ascites Status: Acute (2) Pleural effusion on left Status: Acute (3) Volume overload Status: Acute Current Medications Current Medications Current Medications Morphine Sulfate (Morphine Sulfate) 4 mg PRN Q15MIN PRN IV/SQ PAIN GREATER THAN 3/10 Last administered on 09/10/21at 22:14; Start 09/10/21 at 15:30; Stop 09/11/21 at 15:29 Ondansetron HCl (Zofran) 4 mg PRN Q8HRS PRN IVP NAUSEA/VOMITING Last administered on 09/10/21at 22:15; Start 09/10/21 at 22:00; Stop 09/11/21 at 21:59 Morphine Sulfate (Morphine Sulfate) 4 mg PRN Q2HR PRN IVP PAIN Last administered on 09/11/21at 02:04; Start 09/10/21 at 22:00; Stop 09/11/21 at 21:59 Cetirizine HCl (ZyrTEC) 10 mg 1X STAT PO ; Start 09/10/21 at 22:46; Stop 09/10/21 at 22:47; Status Cancel Cetirizine HCl (ZyrTEC) 10 mg PRN DAILY PRN PO ALLERGIES; Start 09/10/21 at 23:00 Hydroxyzine HCl (Atarax) 25 mg PRN Q8HRS PRN PO ITCHING Last administered on 09/11/21at 02:03; Start 09/11/21 at 00:45 Pharmacy Consult (C.diff Med Screen By Rx) 1 each 1X ONCE MC ; Start 09/11/21 at 04:45; Stop 09/11/21 at 04:46; Status Cancel Sodium Chloride 1,000 ml @ 1,000 mls/hr Q1H PRN IV hypotension; Start 09/11/21 at 08:45; Stop 09/11/21 at 14:44; Status UNV Sodium Chloride 1,000 ml @ 400 mls/hr Q2H30M PRN IV PATENCY; Start 09/11/21 at 08:45; Stop 09/11/21 at 20:44; Status UNV Info (PHARMACY MONITORING -- do not chart) 1 each PRN DAILY PRN MC SEE COMMENTS; Start 09/11/21 at 08:45; Status UNV Info (PHARMACY MONITORING -- do not chart) 1 each PRN DAILY PRN MC SEE COMMENTS; Start 09/11/21 at 08:45; Status UNV Active Scripts Active Percocet 5-325 Mg Tablet (Oxycodone/Acetaminophen) 1 Each Tablet 1 Tab PO PRN Q6HRS PRN 6 Days Lantus (Insulin Glargine,Hum.rec.anlog) 100 Unit/1 Ml Vial 10 Unit SQ QHS 30 Days Novolog Flexpen (Insulin Aspart) 100 Unit/1 Ml Insuln.pen 0-9 Unit SQ TIDAC 30 Days Augmentin 500-125 Tablet (Amoxicillin/Potassium Clav) 1 Each Tablet 1 Tab PO DAILY 10 Days Gabapentin (Gabapentin) 300 Mg Capsule 300 Mg PO QHS 30 Days Midodrine Hcl 10 Mg Tablet 10 Mg PO TID 30 Days Reported Vitamin C (Ascorbic Acid) 500 Mg Capsule 500 Mg PO DAILY Renvela (Sevelamer Carbonate) 800 Mg Tablet 1 Tab PO TID 30 Days Senna Plus Tablet (Sennosides/Docusate Sodium) 1 Each Tablet 2 Tab PO BID 14 Days Ondansetron Odt (Ondansetron) 4 Mg Tab.rapdis 1 Tab PO PRN Q6HRS PRN Multivitamins With Minerals (Multivitamin With Minerals) 1 Each Tablet 1 Tab PO DAILY 30 Days Levothyroxine Sodium 100 Mcg Tablet 1 Tab PO DAILY Folic Acid 0.8 Mg Tablet 1 Mg PO DAILY Acetaminophen 325 Mg Tablet 1 Tab PO PRN Q6HRS PRN 24 Days Zoloft (Sertraline Hcl) 100 Mg Tablet 1 Tab PO DAILY Seroquel (Quetiapine Fumarate) 25 Mg Tablet 1 Tab PO HS Yajaira-Allan Rx Tablet (Vit B Cmplx 3/Fa/Vit C/Biotin) 1 Each Tablet 1 Tab PO DAILY 30 Days Clopidogrel (Clopidogrel Bisulfate) 75 Mg Tablet 1 Tab PO DAILY Pantoprazole Sodium 40 Mg Tablet.dr 40 Mg PO BID Hydroxyzine Hcl 25 Mg Tablet 1 Tab PO PRN Q8HRS PRN Furosemide 80 Mg Tablet 1 Tab PO DAILY Atorvastatin Calcium 40 Mg Tablet 1 Tab PO QHS Aspirin Ec (Aspirin) 81 Mg Tablet.dr 1 Tab PO DAILY Allergies Allergies: Coded Allergies: metoclopramide (Verified Allergy, Intermediate, 09/10/21) ROS General: YES: Fatigue, Malaise; No: Chills, Night Sweats, Appetite, Other PSYCHOLOGICAL ROS: YES: Memory difficulties; No: Anxiety, Behavioral Disorder, Concentration difficultie, Decreased libido, Depression, Disorientation, Hallucinations, Hostility, Irritablity, Mood Swings, Obsessive thoughts, Physical abuse, Sexual abuse, Sleep disturbances, Suicidal ideation, Other Eyes: Yes Decreased vision, Yes Loss of vision; No Blurry vision, No Double vision, No Dry eyes, No Excessive tearing, No Eye Pain, No Itchy Eyes, No Photophobia, No Scotomata, No Uses contacts, No Uses glasses, No Other HEENT: No: Heacaches, Visual Changes, Hearing change, Nasal congestion, Nasal discharge, Oral lesions, Sinus pain, Sore Throat, Epistaxis, Sneezing, Snoring, Tinnitus, Vertigo, Vocal changes, Other ALLERGY AND IMMUNOLOGY: No: Hives, Insect Bite Sensitivity, Itchy/Watery Eyes, Nasal Congestion, Post Nasal Drip, Seasonal Allergies, Other Hematological and Lymphatic: No: Bleeding Problems, Blood Clots, Blood Transfusions, Brusing, Night Sweats, Pallor, Swollen Lymph Nodes, Other ENDOCRINE: No: Breast Changes, Galactorrhea, Hair Pattern Changes, Hot Flashes, Malaise/lethargy, Mood Swings, Palpitations, Polydipsia/polyuria, Skin Changes, Temperature Intolerance, Unexpected Weight Changes, Other Breast: No New/Changing Breast Lumps, No Nipple changes, No Nipple discharge, No Other Respiratory: YES: Shortness of breath, SOB with excertion; No: Cough, Hemoptysis, Orthopnea, Pleuritic Pain, Sputum Changes, Stridor, Tachypnea, Wheezing, Other Cardiovascular: No Chest Pain, No Palpitations, No Orthopnea, No Paroxysmal Noc. Dyspnea, No Edema, No Lt Headedness, No Other Gastrointestinal: Yes Nausea, Yes Abdominal Pain; No Vomiting, No Diarrhea, No Constipation, No Melena, No Hematochezia, No Other Genitourinary: No Dysuria, No Frequency, No Incontinence, No Hematuria, No Retention, No Discharge, No Urgency, No Pain, No Flank Pain, No Other, No , No , No , No , No , No , No Musculoskeletal: Yes Gait Disturbance, Yes Joint Pain, Yes Joint Stiffness, Yes Muscle Pain; No Joint Swelling, No Muscular Weakness, No Pain In:, No Swelling In:, No Other Neurological: Yes Gait Disturbance, Yes Impaired Coord/balance, Yes Memory Loss , Yes Numbness/Tingling; No Behavorial Changes, No Bowel/Bladder ControlChng, No Confusion, No Dizziness, No Headaches, No Seizures, No Speech Problems, No Tremors, No Visual Changes, No Weakness, No Other Skin: Yes Rash, Yes Skin Lesion Changes; No Dry Skin, No Eczema, No Hair Changes, No Lumps, No Mole Changes, No Mottling, No Nail Changes, No Pruritus, No Other, No Acne Physical Exam General: Alert, Cooperative, moderate distress HEENT: Atraumatic, PERRLA, EOMI, Mucous membr. moist/pink Lungs: Other (Bilateral crackles decreased left-sided basilar sounds) Heart: S1S2, RRR, no thrills, no rubs, no gallops, no murmurs Abdomen: Normal bowel sounds, Soft, No hepatosplenomegaly, No masses, Other (Diffuse fluid wave) Rectal Exam: not examined Extremities: Other (Left upper extremity AV fistula with good bruit. 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) Skin: Other (Lower extremity amputation site TMA looks clean) Neuro: Other Psych/Mental Status: Mental status NL, Mood NL Vitals Vitals Vital Signs Date Time Temp Pulse Resp B/P (MAP) Pulse Ox O2 Delivery O2 Flow Rate FiO2 09/11/21 07:00 97.9 86 18 95/42 (59) 95 Room Air 97.9 Labs Labs Laboratory Tests Test 09/10/21 17:45 09/10/21 21:10 09/10/21 22:44 09/10/21 23:59 White Blood Count 9.4 x10^3/uL (4.0-11.0) Red Blood Count 2.69 x10^6/uL (4.30-5.70) Hemoglobin 7.8 g/dL (13.0-17.5) Hematocrit 24.4 % (39.0-53.0) Mean Corpuscular Volume 91 fL (79-100) Mean Corpuscular Hemoglobin 29 pg (25-35) Mean Corpuscular Hemoglobin Concent 32 g/dL (31-37) Red Cell Distribution Width 19.6 % (11.5-14.5) Platelet Count 491 x10^3/uL (140-400) Neutrophils (%) (Auto) 82 % (31-73) Lymphocytes (%) (Auto) 7 % (24-48) Monocytes (%) (Auto) 8 % (0-9) Eosinophils (%) (Auto) 4 % (0-3) Basophils (%) (Auto) 0 % (0-3) Neutrophils # (Auto) 7.6 x10^3/uL (1.8-7.7) Lymphocytes # (Auto) 0.6 x10^3/uL (1.0-4.8) Monocytes # (Auto) 0.7 x10^3/uL (0.0-1.1) Eosinophils # (Auto) 0.3 x10^3/uL (0.0-0.7) Basophils # (Auto) 0.0 x10^3/uL (0.0-0.2) Sodium Level 131 mmol/L (136-145) Potassium Level 4.8 mmol/L (3.5-5.1) Chloride Level 90 mmol/L (98-107) Carbon Dioxide Level 27 mmol/L (21-32) Anion Gap 14 (6-14) Blood Urea Nitrogen 62 mg/dL (8-26) Creatinine 6.4 mg/dL (0.7-1.3) Estimated GFR (Cockcroft-Gault) 9.6 BUN/Creatinine Ratio 10 (6-20) Glucose Level 268 mg/dL (70-99) Calcium Level 10.2 mg/dL (8.5-10.1) Magnesium Level 2.1 mg/dL (1.8-2.4) Total Bilirubin 0.5 mg/dL (0.2-1.0) Aspartate Amino Transf (AST/SGOT) 74 U/L (15-37) Alanine Aminotransferase (ALT/SGPT) 61 U/L (16-63) Alkaline Phosphatase 220 U/L (46-116) Troponin I High Sensitivity 212 ng/L (4-75) 228 ng/L (4-75) 240 ng/L (4-75) CV-Fmt-J-Type Natriuretic Peptide > 03557 pg/mL (0-124) Total Protein 7.4 g/dL (6.4-8.2) Albumin 2.0 g/dL (3.4-5.0) Albumin/Globulin Ratio 0.4 (1.0-1.7) Lipase 167 U/L (73-393) Thyroid Stimulating Hormone (TSH) 1.414 uIU/mL (0.358-3.74) SARS-CoV-2 Antigen (Rapid) Negative (NEGATIVE) Laboratory Tests Test 09/10/21 17:45 09/10/21 21:10 09/10/21 22:44 09/10/21 23:59 White Blood Count 9.4 x10^3/uL (4.0-11.0) Red Blood Count 2.69 x10^6/uL (4.30-5.70) Hemoglobin 7.8 g/dL (13.0-17.5) Hematocrit 24.4 % (39.0-53.0) Mean Corpuscular Volume 91 fL (79-100) Mean Corpuscular Hemoglobin 29 pg (25-35) Mean Corpuscular Hemoglobin Concent 32 g/dL (31-37) Red Cell Distribution Width 19.6 % (11.5-14.5) Platelet Count 491 x10^3/uL (140-400) Neutrophils (%) (Auto) 82 % (31-73) Lymphocytes (%) (Auto) 7 % (24-48) Monocytes (%) (Auto) 8 % (0-9) Eosinophils (%) (Auto) 4 % (0-3) Basophils (%) (Auto) 0 % (0-3) Neutrophils # (Auto) 7.6 x10^3/uL (1.8-7.7) Lymphocytes # (Auto) 0.6 x10^3/uL (1.0-4.8) Monocytes # (Auto) 0.7 x10^3/uL (0.0-1.1) Eosinophils # (Auto) 0.3 x10^3/uL (0.0-0.7) Basophils # (Auto) 0.0 x10^3/uL (0.0-0.2) Sodium Level 131 mmol/L (136-145) Potassium Level 4.8 mmol/L (3.5-5.1) Chloride Level 90 mmol/L (98-107) Carbon Dioxide Level 27 mmol/L (21-32) Anion Gap 14 (6-14) Blood Urea Nitrogen 62 mg/dL (8-26) Creatinine 6.4 mg/dL (0.7-1.3) Estimated GFR (Cockcroft-Gault) 9.6 BUN/Creatinine Ratio 10 (6-20) Glucose Level 268 mg/dL (70-99) Calcium Level 10.2 mg/dL (8.5-10.1) Magnesium Level 2.1 mg/dL (1.8-2.4) Total Bilirubin 0.5 mg/dL (0.2-1.0) Aspartate Amino Transf (AST/SGOT) 74 U/L (15-37) Alanine Aminotransferase (ALT/SGPT) 61 U/L (16-63) Alkaline Phosphatase 220 U/L (46-116) Troponin I High Sensitivity 212 ng/L (4-75) 228 ng/L (4-75) 240 ng/L (4-75) SA-Wln-I-Type Natriuretic Peptide > 90979 pg/mL (0-124) Total Protein 7.4 g/dL (6.4-8.2) Albumin 2.0 g/dL (3.4-5.0) Albumin/Globulin Ratio 0.4 (1.0-1.7) Lipase 167 U/L (73-393) Thyroid Stimulating Hormone (TSH) 1.414 uIU/mL (0.358-3.74) SARS-CoV-2 Antigen (Rapid) Negative (NEGATIVE) VTE Prophylaxis Ordered VTE Prophylaxis Devices: Yes VTE Pharmacological Prophylaxi: Yes Assessment/Plan Assessment/Plan Ascites - previously multiple paracenteses from [facility]. Consult GI and IR for paracentesis and thoracentesis Shortness of breath -with cough. Chest radiograph may indicate his pleural effusions worsen contributing to shortness of breath. CT chest to better elucidate. 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
[2021-09-11 09:02] LABS: ALBUMIN 1.9 g/dL (3.4-5.0); ALBUMIN/GLOBULIN RATIO 0.4 (1.0-1.7); CALCIUM 9.8 mg/dL (8.5-10.1); CREATININE 6.8 mg/dL (0.7-1.3); POTASSIUM 4.8 mmol/L (3.5-5.1); TOTAL BILIRUBIN 0.5 mg/dL (0.2-1.0); TOTAL PROTEIN 7.3 g/dL (6.4-8.2)
--- NOTE | 2021-09-11 09:24 | PDOC2 ---
GI CONSULT Date of Service: DATE: 09/11/21 TIME: 09:23 Reason For Consult: ascites HPI: HPI: 41 y/o male who we've seen several times this year. Not a good historian now or in past. He says came to ER from rehab for mid abdominal pain and vomiting. Feels better this morning and wants to eat. Denies bleeding, diarrhea, and constipation. Doesn't feel bloated. Wants to know if he'll have paracentesis. Didn't go to d ialysis yesterday because he felt bad. From past encounters: EGD and colonoscopy by Dr. Rene Munguia at [facility] ([facility]) on 05/02/21 for acute on chronic anemia and recent GI bleeding showed normal esophagus, non- bleeding 1-1.5cm hyperplastic antral polyps (largest removed w/ hot snare, negative for H. pylori and intestinal metaplasia), normal duodenal mucosa, 1- 1.5cm adenomatous polyp in transverse colon, 6mm inflammatory polyp in descending colon, stercoral rectal ulcer (biopsy showed colorectal mucosa w/ ulceration, mixed inflammation, and slightly withered glands - no dysplasia and most suggestive of solitary rectal ulcer, rectal prolapse, or stercoral ulcer and stercoral colitis in rectosigmoid area extending up to 15cm w/ friability but w/o active bleeding. Colonoscopy prep was fair w/ poor visualization of cecum and ascending colon. Recommendation for Protonix 40mg BID + MIralax BID + Colace BID and to repeat colonoscopy in 5 years. H/o paracentesis, past cytology negative for malignancy. Past imaging noted diverticulosis, hepatic steatosis/possible cirrhosis, splenomegaly, patent PV. H/o ACD and +Hemoccult. He reported abnormal GES at [facility] - at one point said he took metoclopramide but this is listed as an allergy. PMH: PMH: CAD w/ stents, ESRD on HD, HTN, DM, CVA, DVT, retinopathy, peripheral neuropathy, thyroid nodules, non-compliance, COVID left BKA, LUE AV fistula/revision w/ resection of aneurysm, paracentesis, right transmetatarsal amputation, atherectomy and angioplasty of right posterior tibial artery FH: Family History: No pertinent hx Social History: ALCOHOL: none Drugs: None ROS: Poor historian, see HPI. Vitals: Vitals: Vital Signs Date Time Temp Pulse Resp B/P (MAP) Pulse Ox O2 Delivery O2 Flow Rate FiO2 09/11/21 08:00 Room Air 09/11/21 07:00 97.9 86 18 95/42 (59) 95 97.9 Labs: Labs: Laboratory Tests Test 09/10/21 17:45 09/10/21 21:10 09/10/21 22:44 09/10/21 23:59 White Blood Count 9.4 x10^3/uL (4.0-11.0) Red Blood Count 2.69 x10^6/uL (4.30-5.70) Hemoglobin 7.8 g/dL (13.0-17.5) Hematocrit 24.4 % (39.0-53.0) Mean Corpuscular Volume 91 fL (79-100) Mean Corpuscular Hemoglobin 29 pg (25-35) Mean Corpuscular Hemoglobin Concent 32 g/dL (31-37) Red Cell Distribution Width 19.6 % (11.5-14.5) Platelet Count 491 x10^3/uL (140-400) Neutrophils (%) (Auto) 82 % (31-73) Lymphocytes (%) (Auto) 7 % (24-48) Monocytes (%) (Auto) 8 % (0-9) Eosinophils (%) (Auto) 4 % (0-3) Basophils (%) (Auto) 0 % (0-3) Neutrophils # (Auto) 7.6 x10^3/uL (1.8-7.7) Lymphocytes # (Auto) 0.6 x10^3/uL (1.0-4.8) Monocytes # (Auto) 0.7 x10^3/uL (0.0-1.1) Eosinophils # (Auto) 0.3 x10^3/uL (0.0-0.7) Basophils # (Auto) 0.0 x10^3/uL (0.0-0.2) Sodium Level 131 mmol/L (136-145) Potassium Level 4.8 mmol/L (3.5-5.1) Chloride Level 90 mmol/L (98-107) Carbon Dioxide Level 27 mmol/L (21-32) Anion Gap 14 (6-14) Blood Urea Nitrogen 62 mg/dL (8-26) Creatinine 6.4 mg/dL (0.7-1.3) Estimated GFR (Cockcroft-Gault) 9.6 BUN/Creatinine Ratio 10 (6-20) Glucose Level 268 mg/dL (70-99) Calcium Level 10.2 mg/dL (8.5-10.1) Magnesium Level 2.1 mg/dL (1.8-2.4) Total Bilirubin 0.5 mg/dL (0.2-1.0) Aspartate Amino Transf (AST/SGOT) 74 U/L (15-37) Alanine Aminotransferase (ALT/SGPT) 61 U/L (16-63) Alkaline Phosphatase 220 U/L (46-116) Troponin I High Sensitivity 212 ng/L (4-75) 228 ng/L (4-75) 240 ng/L (4-75) CC-Tbg-S-Type Natriuretic Peptide > 99120 pg/mL (0-124) Total Protein 7.4 g/dL (6.4-8.2) Albumin 2.0 g/dL (3.4-5.0) Albumin/Globulin Ratio 0.4 (1.0-1.7) Lipase 167 U/L (73-393) Thyroid Stimulating Hormone (TSH) 1.414 uIU/mL (0.358-3.74) SARS-CoV-2 Antigen (Rapid) Negative (NEGATIVE) Test 09/11/21 08:15 White Blood Count 7.6 x10^3/uL (4.0-11.0) Red Blood Count 2.64 x10^6/uL (4.30-5.70) Hemoglobin 7.9 g/dL (13.0-17.5) Hematocrit 24.1 % (39.0-53.0) Mean Corpuscular Volume 92 fL (79-100) Mean Corpuscular Hemoglobin 30 pg (25-35) Mean Corpuscular Hemoglobin Concent 33 g/dL (31-37) Red Cell Distribution Width 19.2 % (11.5-14.5) Platelet Count 403 x10^3/uL (140-400) Neutrophils (%) (Auto) 71 % (31-73) Lymphocytes (%) (Auto) 10 % (24-48) Monocytes (%) (Auto) 11 % (0-9) Eosinophils (%) (Auto) 7 % (0-3) Basophils (%) (Auto) 1 % (0-3) Neutrophils # (Auto) 5.4 x10^3/uL (1.8-7.7) Lymphocytes # (Auto) 0.8 x10^3/uL (1.0-4.8) Monocytes # (Auto) 0.8 x10^3/uL (0.0-1.1) Eosinophils # (Auto) 0.5 x10^3/uL (0.0-0.7) Basophils # (Auto) 0.1 x10^3/uL (0.0-0.2) Sodium Level 132 mmol/L (136-145) Potassium Level 4.8 mmol/L (3.5-5.1) Chloride Level 92 mmol/L (98-107) Carbon Dioxide Level 28 mmol/L (21-32) Anion Gap 12 (6-14) Blood Urea Nitrogen 64 mg/dL (8-26) Creatinine 6.8 mg/dL (0.7-1.3) Estimated GFR (Cockcroft-Gault) 9.0 BUN/Creatinine Ratio 9 (6-20) Glucose Level 150 mg/dL (70-99) Calcium Level 9.8 mg/dL (8.5-10.1) Total Bilirubin 0.5 mg/dL (0.2-1.0) Aspartate Amino Transf (AST/SGOT) 73 U/L (15-37) Alanine Aminotransferase (ALT/SGPT) 64 U/L (16-63) Alkaline Phosphatase 166 U/L (46-116) Total Protein 7.3 g/dL (6.4-8.2) Albumin 1.9 g/dL (3.4-5.0) Albumin/Globulin Ratio 0.4 (1.0-1.7) Allergies: Coded Allergies: metoclopramide (Verified Allergy, Intermediate, 09/10/21) Medications: Current Medications Medications (Trade) Dose Ordered Sig/Damien Route PRN Reason Start Time Stop Time Status Last Admin Dose Admin Morphine Sulfate (Morphine Sulfate) 4 mg PRN Q15MIN PRN IV/SQ PAIN GREATER THAN 3/10 09/10/21 15:30 09/11/21 15:29 09/10/21 22:14 Ondansetron HCl (Zofran) 4 mg PRN Q8HRS PRN IVP NAUSEA/VOMITING 09/10/21 22:00 09/11/21 21:59 09/10/21 22:15 Morphine Sulfate (Morphine Sulfate) 4 mg PRN Q2HR PRN IVP PAIN 09/10/21 22:00 09/11/21 21:59 09/11/21 02:04 Hydroxyzine HCl (Atarax) 25 mg PRN Q8HRS PRN PO ITCHING 09/11/21 00:45 09/11/21 02:03 Imaging: Imaging: CT A/P IMPRESSION: 1. Large amount of intra-abdominal ascites. 2. Moderate left pleural effusion with adjacent atelectasis. 3. Other stable findings as described above. CXR IMPRESSION: 1. Left pleural effusion. 2. Mild increased vascular congestion. 3. Persistent interstitial lung disease. PE: GEN: chronically ill HEENT: Atraumatic LUNGS: decreased to left HEART: RRR ABD: distended, soft EXTREMITY: left BKA, right TMTA NEURO/PSYCH: A & O 3, poor historian A/P: A/P: Abd pain, vomiting NSTEMI, left pleural effusion, ascites ACD (stable - has needed past transfusions) - on Plavix and ASA Abnormal LFTs, h/o paracentesis (other hospitals, past imaging w/ hepatic steatosis/?cirrhosis H/o stercoral rectal ulcer H/o CHF, ESRD, CAD w/ stent, PAD, DM, CVA, COVID, non-compliance -- Paracentesis and thoracentesis pending. NATASHA MANZO Sep 11, 2021 09:23
[2021-09-11] MEDS ORDERED: ALBUMIN HUMAN 25% 200 ML IV PRN (10:00)
--- NOTE | 2021-09-11 10:15 | NUR ---
WOUND CARE: Attempted to see patient for wound care consult. Patient off unit and then will have procedure following. Wound care will try again tomorrow. RN agreeable.
--- NOTE | 2021-09-11 10:19 | CONS ---
DATE OF CONSULTATION: 09/11/2021 ATTENDING PHYSICIAN: Carlo Chun MD REASON FOR CONSULTATION: Pleural effusion. HISTORY OF PRESENT ILLNESS: The patient is a 41-year-old male who has CKD, on dialysis for 4 years. History of prior CVA, peripheral neuropathy, CHF, hypertension, status post left BKA and multiple other problems. He was brought into the hospital with increasing epigastric and periumbilical pain and some abdominal distention. He denies any shortness of breath. Denies any chest pains. The patient underwent imaging study and a CT abdomen and pelvis was performed, which was reviewed by me. There is large amount of intraabdominal ascites. There is moderate left pleural effusion with compressive atelectasis. The effusion has slightly increased since August for imaging study. He is currently undergoing dialysis, currently on room air. PAST MEDICAL HISTORY: Extensive includes history of end-stage renal disease, on hemodialysis; history of prior CVA; peripheral neuropathy; CHF; hyperlipidemia; hypertension; gastroesophageal reflux disease. PAST SURGICAL HISTORY: Status post left BKA. ALLERGIES: METOCLOPRAMIDE. MEDICATIONS: Reviewed as listed in the MRAD. REVIEW OF SYSTEMS: Twelve-point review of system obtained. Pertinent positives discussed in my present illness, otherwise noncontributory. All systems that were negative were reviewed as well. FAMILY HISTORY: Noncontributory to lungs. SOCIAL HISTORY: Denies significant tobacco use. PHYSICAL EXAMINATION: VITAL SIGNS: Reviewed, stable, pulse ox 95% on room air. NECK: Supple. LUNGS: With diminished breath sounds. CARDIOVASCULAR: With a regular rate. ABDOMEN: Distended, obese. Minimally tender in the periumbilical area. EXTREMITIES: With signs of venous stasis, left BKA. His skin also has multiple skin lesions. LABORATORY DATA: Reviewed. His COVID rapid is negative. BUN 64, creatinine 6.8. White cell count 7.6, hemoglobin 7.9. Platelets were 403. IMPRESSION: 1. Abnormal CT abdomen and pelvis with moderate left-sided pleural effusion with compressive atelectasis. This is secondary to the abdominal process, which showed a large size abdominal ascites. This is likely a transudative effusion. 2. No significant tobaccoism. 3. End-stage renal disease, on hemodialysis. 4. Large ascites. 5. Anemia. RECOMMENDATIONS: 1. Discussed with the patient. I also gave him the option of left-sided thoracentesis. He is scheduled for paracentesis. He is agreeable for thoracentesis as well. 2. We will obtain PT and INR. 3. Continue Renal recommendations with hemodialysis. 4. Follow Cardiology recommendations. 5. Follow GI recommendations. 6. We will follow along with you. LADI DR: Jose TID: [id number]
--- NOTE | 2021-09-11 10:43 | PDOC2 ---
CONSULT Date of Consult Date of Consult DATE: 09/11/21 TIME: 10:38 Reason for Consult Reason for Consult: ESRD Referring Physician Referring Physician: ARRON Identification/Chief Complaint Chief Complaint SOB AND WEAK Source Source: Chart review History of Present Illness Reason for Visit: THIS IS A 41 YR OLD WITH ESRD ON HD MWF. MISSED HIS TX YESTERDAY DUE TO ABD PAIN. EVALUATED IN THE ER AND THEN ADMITTED. IMAGING SUGGESTIVE OF MOD PLEURAL EFFUSION AND ASCITES. HE IS BEING EVALUATED BY PULM AND GI. LABS ARE C/W ESRD. HE HAS A LEFT ARM BB AVF FOR ACCESS. Past Medical History Cardiovascular: CAD, HTN CENTRAL NERVOUS SYSTEM: Periperal neuropathy Heme/Onc: Anemia NOS, Other Renal/: Chronic renal failure Endocrine: Diabetes, Hyperparathyroidism Past Surgical History Past Surgical History LEFT BKA, LEFT ARM BB AVF. Past Surgical History: Other Family History Family History: Heart Disease Social History ALCOHOL: none Drugs: None Lives: Alone Current Problem List Problem List Problems Medical Problems: (1) Ascites Status: Acute (2) Pleural effusion on left Status: Acute (3) Volume overload Status: Acute Current Medications Current Medications Current Medications Morphine Sulfate (Morphine Sulfate) 4 mg PRN Q15MIN PRN IV/SQ PAIN GREATER THAN 3/10 Last administered on 09/10/21at 22:14; Start 09/10/21 at 15:30; Stop 09/11/21 at 15:29 Ondansetron HCl (Zofran) 4 mg PRN Q8HRS PRN IVP NAUSEA/VOMITING Last administered on 09/10/21at 22:15; Start 09/10/21 at 22:00; Stop 09/11/21 at 21:59 Morphine Sulfate (Morphine Sulfate) 4 mg PRN Q2HR PRN IVP PAIN Last administered on 09/11/21at 02:04; Start 09/10/21 at 22:00; Stop 09/11/21 at 21:59 Cetirizine HCl (ZyrTEC) 10 mg 1X STAT PO ; Start 09/10/21 at 22:46; Stop 09/10/21 at 22:47; Status Cancel Cetirizine HCl (ZyrTEC) 10 mg PRN DAILY PRN PO ALLERGIES; Start 09/10/21 at 23:00 Hydroxyzine HCl (Atarax) 25 mg PRN Q8HRS PRN PO ITCHING Last administered on 09/11/21at 02:03; Start 09/11/21 at 00:45 Pharmacy Consult (C.diff Med Screen By Rx) 1 each 1X ONCE MC ; Start 09/11/21 at 04:45; Stop 09/11/21 at 04:46; Status Cancel Sodium Chloride 1,000 ml @ 1,000 mls/hr Q1H PRN IV hypotension; Start 09/11/21 at 08:45; Stop 09/11/21 at 14:44 Sodium Chloride 1,000 ml @ 400 mls/hr Q2H30M PRN IV PATENCY; Start 09/11/21 at 08:45; Stop 09/11/21 at 20:44 Info (PHARMACY MONITORING -- do not chart) 1 each PRN DAILY PRN MC SEE COMMENTS; Start 09/11/21 at 08:45 Info (PHARMACY MONITORING -- do not chart) 1 each PRN DAILY PRN MC SEE COMMENTS; Start 09/11/21 at 08:45 Albumin Human 200 ml @ 200 mls/hr 1X PRN PRN IV Hypotension; Start 09/11/21 at 10:00; Stop 09/11/21 at 15:59 Active Scripts Active Percocet 5-325 Mg Tablet (Oxycodone/Acetaminophen) 1 Each Tablet 1 Tab PO PRN Q6HRS PRN 6 Days Lantus (Insulin Glargine,Hum.rec.anlog) 100 Unit/1 Ml Vial 10 Unit SQ QHS 30 Days Novolog Flexpen (Insulin Aspart) 100 Unit/1 Ml Insuln.pen 0-9 Unit SQ TIDAC 30 Days Augmentin 500-125 Tablet (Amoxicillin/Potassium Clav) 1 Each Tablet 1 Tab PO DAILY 10 Days Gabapentin (Gabapentin) 300 Mg Capsule 300 Mg PO QHS 30 Days Midodrine Hcl 10 Mg Tablet 10 Mg PO TID 30 Days Reported Vitamin C (Ascorbic Acid) 500 Mg Capsule 500 Mg PO DAILY Renvela (Sevelamer Carbonate) 800 Mg Tablet 1 Tab PO TID 30 Days Senna Plus Tablet (Sennosides/Docusate Sodium) 1 Each Tablet 2 Tab PO BID 14 Days Ondansetron Odt (Ondansetron) 4 Mg Tab.rapdis 1 Tab PO PRN Q6HRS PRN Multivitamins With Minerals (Multivitamin With Minerals) 1 Each Tablet 1 Tab PO DAILY 30 Days Levothyroxine Sodium 100 Mcg Tablet 1 Tab PO DAILY Folic Acid 0.8 Mg Tablet 1 Mg PO DAILY Acetaminophen 325 Mg Tablet 1 Tab PO PRN Q6HRS PRN 24 Days Zoloft (Sertraline Hcl) 100 Mg Tablet 1 Tab PO DAILY Seroquel (Quetiapine Fumarate) 25 Mg Tablet 1 Tab PO HS Yajaira-Allan Rx Tablet (Vit B Cmplx 3/Fa/Vit C/Biotin) 1 Each Tablet 1 Tab PO DAILY 30 Days Clopidogrel (Clopidogrel Bisulfate) 75 Mg Tablet 1 Tab PO DAILY Pantoprazole Sodium 40 Mg Tablet.dr 40 Mg PO BID Hydroxyzine Hcl 25 Mg Tablet 1 Tab PO PRN Q8HRS PRN Furosemide 80 Mg Tablet 1 Tab PO DAILY Atorvastatin Calcium 40 Mg Tablet 1 Tab PO QHS Aspirin Ec (Aspirin) 81 Mg Tablet.dr 1 Tab PO DAILY Allergies Allergies: Coded Allergies: metoclopramide (Verified Allergy, Intermediate, 09/10/21) ROS General: YES: Fatigue PSYCHOLOGICAL ROS: YES: Anxiety Eyes: Yes Decreased vision ALLERGY AND IMMUNOLOGY: YES: Seasonal Allergies Respiratory: YES: Cough, Shortness of breath Cardiovascular: yes Edema Gastrointestinal: Yes Constipation Genitourinary: YES Other (ANURIA) Musculoskeletal: Yes Muscular Weakness Neurological: Yes Weakness Skin: Yes Dry Skin Physical Exam General: Alert, Cooperative, No acute distress HEENT: Atraumatic, PERRLA Lungs: Other (DECREASED LLL) Heart: Regular rate Abdomen: Normal bowel sounds, No tenderness Extremities: No cyanosis Skin: No breakdown Neuro: Normal speech Psych/Mental Status: Mental status NL MUSCULOSKELETAL: No joint tenderness, No deformity, No swelling Vitals VITALS Vital Signs Date Time Temp Pulse Resp B/P (MAP) Pulse Ox O2 Delivery O2 Flow Rate FiO2 09/11/21 08:00 Room Air 09/11/21 07:00 97.9 86 18 95/42 (59) 95 97.9 Labs Labs Laboratory Tests Test 09/10/21 17:45 09/10/21 21:10 09/10/21 22:44 09/10/21 23:59 White Blood Count 9.4 x10^3/uL (4.0-11.0) Red Blood Count 2.69 x10^6/uL (4.30-5.70) Hemoglobin 7.8 g/dL (13.0-17.5) Hematocrit 24.4 % (39.0-53.0) Mean Corpuscular Volume 91 fL (79-100) Mean Corpuscular Hemoglobin 29 pg (25-35) Mean Corpuscular Hemoglobin Concent 32 g/dL (31-37) Red Cell Distribution Width 19.6 % (11.5-14.5) Platelet Count 491 x10^3/uL (140-400) Neutrophils (%) (Auto) 82 % (31-73) Lymphocytes (%) (Auto) 7 % (24-48) Monocytes (%) (Auto) 8 % (0-9) Eosinophils (%) (Auto) 4 % (0-3) Basophils (%) (Auto) 0 % (0-3) Neutrophils # (Auto) 7.6 x10^3/uL (1.8-7.7) Lymphocytes # (Auto) 0.6 x10^3/uL (1.0-4.8) Monocytes # (Auto) 0.7 x10^3/uL (0.0-1.1) Eosinophils # (Auto) 0.3 x10^3/uL (0.0-0.7) Basophils # (Auto) 0.0 x10^3/uL (0.0-0.2) Sodium Level 131 mmol/L (136-145) Potassium Level 4.8 mmol/L (3.5-5.1) Chloride Level 90 mmol/L (98-107) Carbon Dioxide Level 27 mmol/L (21-32) Anion Gap 14 (6-14) Blood Urea Nitrogen 62 mg/dL (8-26) Creatinine 6.4 mg/dL (0.7-1.3) Estimated GFR (Cockcroft-Gault) 9.6 BUN/Creatinine Ratio 10 (6-20) Glucose Level 268 mg/dL (70-99) Calcium Level 10.2 mg/dL (8.5-10.1) Magnesium Level 2.1 mg/dL (1.8-2.4) Total Bilirubin 0.5 mg/dL (0.2-1.0) Aspartate Amino Transf (AST/SGOT) 74 U/L (15-37) Alanine Aminotransferase (ALT/SGPT) 61 U/L (16-63) Alkaline Phosphatase 220 U/L (46-116) Troponin I High Sensitivity 212 ng/L (4-75) 228 ng/L (4-75) 240 ng/L (4-75) XN-Fga-V-Type Natriuretic Peptide > 21771 pg/mL (0-124) Total Protein 7.4 g/dL (6.4-8.2) Albumin 2.0 g/dL (3.4-5.0) Albumin/Globulin Ratio 0.4 (1.0-1.7) Lipase 167 U/L (73-393) Thyroid Stimulating Hormone (TSH) 1.414 uIU/mL (0.358-3.74) SARS-CoV-2 Antigen (Rapid) Negative (NEGATIVE) Test 09/11/21 08:15 White Blood Count 7.6 x10^3/uL (4.0-11.0) Red Blood Count 2.64 x10^6/uL (4.30-5.70) Hemoglobin 7.9 g/dL (13.0-17.5) Hematocrit 24.1 % (39.0-53.0) Mean Corpuscular Volume 92 fL (79-100) Mean Corpuscular Hemoglobin 30 pg (25-35) Mean Corpuscular Hemoglobin Concent 33 g/dL (31-37) Red Cell Distribution Width 19.2 % (11.5-14.5) Platelet Count 403 x10^3/uL (140-400) Neutrophils (%) (Auto) 71 % (31-73) Lymphocytes (%) (Auto) 10 % (24-48) Monocytes (%) (Auto) 11 % (0-9) Eosinophils (%) (Auto) 7 % (0-3) Basophils (%) (Auto) 1 % (0-3) Neutrophils # (Auto) 5.4 x10^3/uL (1.8-7.7) Lymphocytes # (Auto) 0.8 x10^3/uL (1.0-4.8) Monocytes # (Auto) 0.8 x10^3/uL (0.0-1.1) Eosinophils # (Auto) 0.5 x10^3/uL (0.0-0.7) Basophils # (Auto) 0.1 x10^3/uL (0.0-0.2) Sodium Level 132 mmol/L (136-145) Potassium Level 4.8 mmol/L (3.5-5.1) Chloride Level 92 mmol/L (98-107) Carbon Dioxide Level 28 mmol/L (21-32) Anion Gap 12 (6-14) Blood Urea Nitrogen 64 mg/dL (8-26) Creatinine 6.8 mg/dL (0.7-1.3) Estimated GFR (Cockcroft-Gault) 9.0 BUN/Creatinine Ratio 9 (6-20) Glucose Level 150 mg/dL (70-99) Calcium Level 9.8 mg/dL (8.5-10.1) Total Bilirubin 0.5 mg/dL (0.2-1.0) Aspartate Amino Transf (AST/SGOT) 73 U/L (15-37) Alanine Aminotransferase (ALT/SGPT) 64 U/L (16-63) Alkaline Phosphatase 166 U/L (46-116) Total Protein 7.3 g/dL (6.4-8.2) Albumin 1.9 g/dL (3.4-5.0) Albumin/Globulin Ratio 0.4 (1.0-1.7) Laboratory Tests Test 09/10/21 17:45 09/10/21 21:10 09/10/21 22:44 09/10/21 23:59 White Blood Count 9.4 x10^3/uL (4.0-11.0) Red Blood Count 2.69 x10^6/uL (4.30-5.70) Hemoglobin 7.8 g/dL (13.0-17.5) Hematocrit 24.4 % (39.0-53.0) Mean Corpuscular Volume 91 fL (79-100) Mean Corpuscular Hemoglobin 29 pg (25-35) Mean Corpuscular Hemoglobin Concent 32 g/dL (31-37) Red Cell Distribution Width 19.6 % (11.5-14.5) Platelet Count 491 x10^3/uL (140-400) Neutrophils (%) (Auto) 82 % (31-73) Lymphocytes (%) (Auto) 7 % (24-48) Monocytes (%) (Auto) 8 % (0-9) Eosinophils (%) (Auto) 4 % (0-3) Basophils (%) (Auto) 0 % (0-3) Neutrophils # (Auto) 7.6 x10^3/uL (1.8-7.7) Lymphocytes # (Auto) 0.6 x10^3/uL (1.0-4.8) Monocytes # (Auto) 0.7 x10^3/uL (0.0-1.1) Eosinophils # (Auto) 0.3 x10^3/uL (0.0-0.7) Basophils # (Auto) 0.0 x10^3/uL (0.0-0.2) Sodium Level 131 mmol/L (136-145) Potassium Level 4.8 mmol/L (3.5-5.1) Chloride Level 90 mmol/L (98-107) Carbon Dioxide Level 27 mmol/L (21-32) Anion Gap 14 (6-14) Blood Urea Nitrogen 62 mg/dL (8-26) Creatinine 6.4 mg/dL (0.7-1.3) Estimated GFR (Cockcroft-Gault) 9.6 BUN/Creatinine Ratio 10 (6-20) Glucose Level 268 mg/dL (70-99) Calcium Level 10.2 mg/dL (8.5-10.1) Magnesium Level 2.1 mg/dL (1.8-2.4) Total Bilirubin 0.5 mg/dL (0.2-1.0) Aspartate Amino Transf (AST/SGOT) 74 U/L (15-37) Alanine Aminotransferase (ALT/SGPT) 61 U/L (16-63) Alkaline Phosphatase 220 U/L (46-116) Troponin I High Sensitivity 212 ng/L (4-75) 228 ng/L (4-75) 240 ng/L (4-75) WK-Zfu-Q-Type Natriuretic Peptide > 75182 pg/mL (0-124) Total Protein 7.4 g/dL (6.4-8.2) Albumin 2.0 g/dL (3.4-5.0) Albumin/Globulin Ratio 0.4 (1.0-1.7) Lipase 167 U/L (73-393) Thyroid Stimulating Hormone (TSH) 1.414 uIU/mL (0.358-3.74) SARS-CoV-2 Antigen (Rapid) Negative (NEGATIVE) Test 09/11/21 08:15 White Blood Count 7.6 x10^3/uL (4.0-11.0) Red Blood Count 2.64 x10^6/uL (4.30-5.70) Hemoglobin 7.9 g/dL (13.0-17.5) Hematocrit 24.1 % (39.0-53.0) Mean Corpuscular Volume 92 fL (79-100) Mean Corpuscular Hemoglobin 30 pg (25-35) Mean Corpuscular Hemoglobin Concent 33 g/dL (31-37) Red Cell Distribution Width 19.2 % (11.5-14.5) Platelet Count 403 x10^3/uL (140-400) Neutrophils (%) (Auto) 71 % (31-73) Lymphocytes (%) (Auto) 10 % (24-48) Monocytes (%) (Auto) 11 % (0-9) Eosinophils (%) (Auto) 7 % (0-3) Basophils (%) (Auto) 1 % (0-3) Neutrophils # (Auto) 5.4 x10^3/uL (1.8-7.7) Lymphocytes # (Auto) 0.8 x10^3/uL (1.0-4.8) Monocytes # (Auto) 0.8 x10^3/uL (0.0-1.1) Eosinophils # (Auto) 0.5 x10^3/uL (0.0-0.7) Basophils # (Auto) 0.1 x10^3/uL (0.0-0.2) Sodium Level 132 mmol/L (136-145) Potassium Level 4.8 mmol/L (3.5-5.1) Chloride Level 92 mmol/L (98-107) Carbon Dioxide Level 28 mmol/L (21-32) Anion Gap 12 (6-14) Blood Urea Nitrogen 64 mg/dL (8-26) Creatinine 6.8 mg/dL (0.7-1.3) Estimated GFR (Cockcroft-Gault) 9.0 BUN/Creatinine Ratio 9 (6-20) Glucose Level 150 mg/dL (70-99) Calcium Level 9.8 mg/dL (8.5-10.1) Total Bilirubin 0.5 mg/dL (0.2-1.0) Aspartate Amino Transf (AST/SGOT) 73 U/L (15-37) Alanine Aminotransferase (ALT/SGPT) 64 U/L (16-63) Alkaline Phosphatase 166 U/L (46-116) Total Protein 7.3 g/dL (6.4-8.2) Albumin 1.9 g/dL (3.4-5.0) Albumin/Globulin Ratio 0.4 (1.0-1.7) Assessment/Plan Assessment/Plan IMP ESRD-MWF-L ARM BB AVF DM II HTN ANEMIA ASCITES L PLEURAL EFFUSION PLAN HD TODAY UF TO TW RETACRIT PARACENTESIS THORACENTESIS WILL FOLLOW CAROLYN MELGAR MD Sep 11, 2021 10:43
--- NOTE | 2021-09-11 11:28 | PDOC2 ---
MATT FARLEY EVALUATOR TRANSFER STUDENTS 09/11/21 1128: CARDIAC CONSULT DATE OF CONSULT Date of Consult DATE: 09/11/21 TIME: 11:12 REASON FOR CONSULT Reason for Consult: Elevated troponin REFERRING PHYSICIAN Referring Physician: Kinjal SOURCE Source: Chart review, Patient HISTORY OF PRESENT ILLNESS HISTORY OF PRESENT ILLNESS This is a 41 yo male admitted for complains of abdominal pain and some SOA. No chest pain. He is familiar to me and was just recently discharged and was seen over a week ago by our cardiology group. At that time he was treated for CHF and covid-19. He has ESRD and was suppose to have dialysis the other day but could not due to his abdominal pain. Further imaging shows that he has left pleural effusion and large ascites likely needing paracentesis. Presently he is having HD and not in any distress and restful. He did show that he has gained about 5 KG since his last weigh in fro dialysis. PAST MEDICAL HISTORY Cardiovascular: CAD, CHF, HTN, Hyperlipidemia, Other (PAD, NSVT) Pulmonary: Asthma CENTRAL NERVOUS SYSTEM: CVA GI: Other (ascites) Heme/Onc: Anemia NOS Infectious disease: Other (MRSA) Renal/: Chronic renal failure Endocrine: Diabetes PAST SURGICAL HISTORY Past Surgical History: Pacemaker, Other (LBKA; right transmetatarsal amputation) FAMILY HISTORY Family History: Heart Disease SOCIAL HISTORY Smoke: No ALCOHOL: none Drugs: None Lives: Jail CURRENT MEDICATIONS CURRENT MEDICATIONS Current Medications Medications (Trade) Dose Ordered Sig/Damien Route PRN Reason Start Time Stop Time Status Last Admin Dose Admin Morphine Sulfate (Morphine Sulfate) 4 mg PRN Q15MIN PRN IV/SQ PAIN GREATER THAN 3/10 09/10/21 15:30 09/11/21 15:29 09/10/21 22:14 Ondansetron HCl (Zofran) 4 mg PRN Q8HRS PRN IVP NAUSEA/VOMITING 09/10/21 22:00 09/11/21 21:59 09/10/21 22:15 Morphine Sulfate (Morphine Sulfate) 4 mg PRN Q2HR PRN IVP PAIN 09/10/21 22:00 09/11/21 21:59 09/11/21 02:04 Hydroxyzine HCl (Atarax) 25 mg PRN Q8HRS PRN PO ITCHING 09/11/21 00:45 09/11/21 02:03 ALLERGIES ALLERGIES: Coded Allergies: metoclopramide (Verified Allergy, Intermediate, 09/10/21) ROS Review of System 14 point ROS evaluated with pertinent positives noted per HPI PHYSICAL EXAM General: Alert, Oriented X3, Cooperative, No acute distress HEENT: Atraumatic, Mucous membr. moist/pink Lungs: Other (diminished bases) Heart: Regular rate (SR), Other (distant heart sounds) Abdomen: Other (Ascites) Extremities: Other (LBKA) Skin: No rashes Neuro: Normal speech, Sensation intact Psych/Mental Status: Mental status NL, Mood NL MUSCULOSKELETAL: Osteoarthritic changes both hands VITALS/I&O VITALS/I&O: Vital Signs Date Time Temp Pulse Resp B/P (MAP) Pulse Ox O2 Delivery O2 Flow Rate FiO2 09/11/21 08:00 Room Air 09/11/21 07:00 97.9 86 18 95/42 (59) 95 97.9 I & O 09/10/21 09/10/21 09/11/21 15:00 23:00 07:00 Intake Total 100 ml Balance 100 ml LABS Lab: Laboratory Tests Test 09/10/21 17:45 09/10/21 21:10 09/10/21 22:44 09/10/21 23:59 White Blood Count 9.4 x10^3/uL (4.0-11.0) Red Blood Count 2.69 x10^6/uL (4.30-5.70) L Hemoglobin 7.8 g/dL (13.0-17.5) L Hematocrit 24.4 % (39.0-53.0) L Mean Corpuscular Volume 91 fL (79-100) Mean Corpuscular Hemoglobin 29 pg (25-35) Mean Corpuscular Hemoglobin Concent 32 g/dL (31-37) Red Cell Distribution Width 19.6 % (11.5-14.5) H Platelet Count 491 x10^3/uL (140-400) H Neutrophils (%) (Auto) 82 % (31-73) H Lymphocytes (%) (Auto) 7 % (24-48) L Monocytes (%) (Auto) 8 % (0-9) Eosinophils (%) (Auto) 4 % (0-3) H Basophils (%) (Auto) 0 % (0-3) Neutrophils # (Auto) 7.6 x10^3/uL (1.8-7.7) Lymphocytes # (Auto) 0.6 x10^3/uL (1.0-4.8) L Monocytes # (Auto) 0.7 x10^3/uL (0.0-1.1) Eosinophils # (Auto) 0.3 x10^3/uL (0.0-0.7) Basophils # (Auto) 0.0 x10^3/uL (0.0-0.2) Sodium Level 131 mmol/L (136-145) L Potassium Level 4.8 mmol/L (3.5-5.1) Chloride Level 90 mmol/L (98-107) L Carbon Dioxide Level 27 mmol/L (21-32) Anion Gap 14 (6-14) Blood Urea Nitrogen 62 mg/dL (8-26) H Creatinine 6.4 mg/dL (0.7-1.3) H Estimated GFR (Cockcroft-Gault) 9.6 BUN/Creatinine Ratio 10 (6-20) Glucose Level 268 mg/dL (70-99) H Calcium Level 10.2 mg/dL (8.5-10.1) H Magnesium Level 2.1 mg/dL (1.8-2.4) Total Bilirubin 0.5 mg/dL (0.2-1.0) Aspartate Amino Transferase (AST) 74 U/L (15-37) H Alanine Aminotransferase (ALT) 61 U/L (16-63) Alkaline Phosphatase 220 U/L (46-116) H Troponin I High Sensitivity 212 ng/L (4-75) H 228 ng/L (4-75) H 240 ng/L (4-75) H FO-Raa-P-Type Natriuretic Peptide > 87493 pg/mL (0-124) H Total Protein 7.4 g/dL (6.4-8.2) Albumin 2.0 g/dL (3.4-5.0) L Albumin/Globulin Ratio 0.4 (1.0-1.7) L Lipase 167 U/L (73-393) Thyroid Stimulating Hormone (TSH) 1.414 uIU/mL (0.358-3.74) SARS-CoV-2 Antigen (Rapid) Negative (NEGATIVE) Test 09/11/21 08:15 White Blood Count 7.6 x10^3/uL (4.0-11.0) Red Blood Count 2.64 x10^6/uL (4.30-5.70) L Hemoglobin 7.9 g/dL (13.0-17.5) L Hematocrit 24.1 % (39.0-53.0) L Mean Corpuscular Volume 92 fL (79-100) Mean Corpuscular Hemoglobin 30 pg (25-35) Mean Corpuscular Hemoglobin Concent 33 g/dL (31-37) Red Cell Distribution Width 19.2 % (11.5-14.5) H Platelet Count 403 x10^3/uL (140-400) H Neutrophils (%) (Auto) 71 % (31-73) Lymphocytes (%) (Auto) 10 % (24-48) L Monocytes (%) (Auto) 11 % (0-9) H Eosinophils (%) (Auto) 7 % (0-3) H Basophils (%) (Auto) 1 % (0-3) Neutrophils # (Auto) 5.4 x10^3/uL (1.8-7.7) Lymphocytes # (Auto) 0.8 x10^3/uL (1.0-4.8) L Monocytes # (Auto) 0.8 x10^3/uL (0.0-1.1) Eosinophils # (Auto) 0.5 x10^3/uL (0.0-0.7) Basophils # (Auto) 0.1 x10^3/uL (0.0-0.2) Sodium Level 132 mmol/L (136-145) L Potassium Level 4.8 mmol/L (3.5-5.1) Chloride Level 92 mmol/L (98-107) L Carbon Dioxide Level 28 mmol/L (21-32) Anion Gap 12 (6-14) Blood Urea Nitrogen 64 mg/dL (8-26) H Creatinine 6.8 mg/dL (0.7-1.3) H Estimated GFR (Cockcroft-Gault) 9.0 BUN/Creatinine Ratio 9 (6-20) Glucose Level 150 mg/dL (70-99) H Calcium Level 9.8 mg/dL (8.5-10.1) Total Bilirubin 0.5 mg/dL (0.2-1.0) Aspartate Amino Transferase (AST) 73 U/L (15-37) H Alanine Aminotransferase (ALT) 64 U/L (16-63) H Alkaline Phosphatase 166 U/L (46-116) H Total Protein 7.3 g/dL (6.4-8.2) Albumin 1.9 g/dL (3.4-5.0) L Albumin/Globulin Ratio 0.4 (1.0-1.7) L Laboratory Tests 09/10/21 17:45 09/11/21 08:15 Laboratory Tests 09/10/21 17:45 09/11/21 08:15 ASSESSMENT/PLAN ASSESSMENT/PLAN 1. Abdominal pain with large ascites: per staff gained about 5 KG since last HD 2. NSTEMI: mild troponin elevation, demand mediated type 2 3. Coronary artery disease s/p Cardiac catheterization in January 2021 showed patent RCA stent. He is presently chest pain-free. 4. SSS s/p leadless pacemaker implantation, stable 5. End-stage renal disease on hemodialysis per nephrology team 6. Acute on chronic diastolic heart failure 7. PAD s/p left BKA and and more recent right transmetatarsal amputation 8. Hypertension: Blood pressure borderline low 9. Hyperlipidemia: Continue statins 10. Hypothyroidism: on replacement 11. DM2: Treat per IM 12. h/o CVA 13. Anemia of chronic disease 14. Recent COVID +: 09/02/2021 Recommendations 1. Consult GI, will need paracentesis 2. Continue current secondary prevention measures. 3. Will obtain limited TTE and note EF post covid-19 4. Fluid off loading per HD 5. Restart midodrine. Continue ASA hold plavix for possible paracentesis. OMER ORTIZ MD 09/11/211908: CARDIAC CONSULT ASSESSMENT/PLAN ASSESSMENT/PLAN Patient seen and examined. Agree with [employer]'s assessment and plan NSTEMI prob demand ischemia CAD clinically stable CAD and PAD clinically stable SSS s/p PPM stable Agree with limited echo for further evaluation Continue HD per nephrology Thank you for your consultation MATT FARLEY APRN Sep 11, 2021 11:28 OMER ORTIZ MD Sep 11, 2021 19:09
[2021-09-11 11:35] LABS: PROTHROMBIN TIME PATIENT 15.8 SEC (11.7-14.0)
[2021-09-11] MEDS: ASPIRIN ENTERIC COATED 81 MG TABLET.DR. PO SCH (12:00)
[2021-09-11] MEDS: MIDODRINE 5 MG TABLET PO SCH ×2 (12:15→17:04)
[2021-09-11] MEDS ORDERED: ALBUMIN HUMAN 25% 100 ML IV ONE ×4 (15:14→15:45)
--- NOTE | 2021-09-11 15:14 | NUR ---
SS following for discharge planning. SS reviewed pt chart and discussed with pt RN. Pt is from [facility] in [place], ; fax [phone]. COVID19 PCR test pending for placement. Pt has outpatient hemodialysis at [facility] in [place], ; fax [phone]. Pt is currently on room air. GI, Cardiology, Nephrology, and Pulmonology following. SS will continue to follow for discharge planning.
[2021-09-11] MEDS: ATORVASTATIN CALCIUM 40 MG TABLET. PO SCH (20:46)
[2021-09-12 03:00] VITALS: BP 97/69
[2021-09-12] MEDS: hydrOXYzine 25 MG TABLET PO PRN (05:03)
[2021-09-12 07:00] VITALS: BP 115/47
[2021-09-12] MEDS: MIDODRINE 5 MG TABLET PO SCH ×3 (07:01→17:04)
[2021-09-12] MEDS ORDERED: IV NORMAL SALINE 1000ML BAG 1,000 ML IV PRN ×2 (07:45)
[2021-09-12] MEDS ORDERED: DIALYSIS PATIENT. MC PRN (07:45)
--- NOTE | 2021-09-12 07:59 | PDOC ---
[employer] PROGRESS NOTE Date of Service DOS: DATE: 09/12/21 TIME: 07:58 Chief Complaint Chief Complaint Ascites - previously multiple paracenteses [facility]. Consult GI for ascites etiology and continued outpatient paracentesis Shortness of breath -with cough. Chest radiograph may indicate his pleural effusions worsen contributing to shortness of breath. CT chest to better elucidate. Consult pulmonary medicine Diabetic toe ulceration and gangrene to right toes digits 1-3, concern for osteomyelitis -status post right transmetatarsal amputation on 08/22/2021 Peripheral vascular disease - s/p left BKA and recent right TMA Anemia consistent with ESRD Chronic respiratory failure with hypoxia - with cor pulmonale Left pleural effusion -pulmonary medicine to see ESRD on HD -nephrology to see for regularly scheduled dialysis DM2 - sliding scale Stage III sacral decubitus ulcer, POA H/o CVA - residual left sided weakness and near blindness HLD - Statin Chronic diastolic CHF - clinically fluid overloaded Severe protein calorie malnutrition - 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 Recent COVID-19 on 09/02/2021 FEN - Renal dialysis PPX -heparin FULL CODE DIspo - inpatient History of Present Illness History of Present Illness Mr Esparza is a 41yo male who has been on dialysis for 4 years, end-stage renal disease, prior cerebrovascular accident; peripheral neuropathy; congestive heart failure; hyperlipidemia; hypertension; asthma; gastroesophageal reflux disease; s/p left BKA; history of depression; diabetes who is a long-term SNF resident who returns to ED from his SNF for concerns for 7 out of 10 sharp intermittent epigastric and periumbilical abdominal pain not feeling well. Labs with NA 131, K4.8, BUN 62, CR 6.4, glucose 268, calcium 10.2, mag 2.1, bilirubin 0.5, AST 74, ALT 61, alkaline phosphatase 220, albumin 2 lipase 167, TSH 1.4, NT proBNP greater than 35,000, high-sensitivity troponin initially 212 on repeat 228 and subsequent 240, rapid COVID-19 negative Chest radiograph left pleural effusion vascular congestion, noncontrast CT abdomen pelvis large amount of intra-abdominal ascites. 09/12: Status post large-volume thoracentesis on the left and paracentesis. NA 1 33 today. Still feeling weak has not been out of bed notes he is not getting physical therapy or transitions to chair and has a heel offloading boot for his right foot he notes he does not want to discontinue dialysis and is not currently interested in hospice his goal to get back home to [place] to live with his mother and father and feels he has been trapped and skilled rehab. Very weak Vitals/I&O Vitals/I&O: Vital Signs Date Time Temp Pulse Resp B/P (MAP) Pulse Ox O2 Delivery O2 Flow Rate FiO2 09/12/21 07:45 Room Air 09/12/21 07:01 85 101/53 09/12/21 03:00 98.6 18 96 98.6 I & O 09/11/21 09/11/21 09/12/21 15:00 23:00 07:00 Intake Total 120 ml 320 ml Output Total 8675 ml Balance -8555 ml 320 ml Physical Exam General: Alert, Cooperative, moderate distress Heart: Regular rate (SR), Other (distant heart sounds) Lungs: Crackles Abdomen: Normal bowel sounds, Soft, No hepatosplenomegaly, No masses, Other (Diffuse fluid wave) Extremities: Other (Left upper extremity AV fistula with good bruit. 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) Skin: Other (Lower extremity amputation site TMA looks clean) Labs Labs: Laboratory Tests Test 09/11/21 08:15 09/11/21 10:55 09/11/21 11:36 09/11/21 17:12 White Blood Count 7.6 x10^3/uL (4.0-11.0) Red Blood Count 2.64 x10^6/uL (4.30-5.70) Hemoglobin 7.9 g/dL (13.0-17.5) Hematocrit 24.1 % (39.0-53.0) Mean Corpuscular Volume 92 fL (79-100) Mean Corpuscular Hemoglobin 30 pg (25-35) Mean Corpuscular Hemoglobin Concent 33 g/dL (31-37) Red Cell Distribution Width 19.2 % (11.5-14.5) Platelet Count 403 x10^3/uL (140-400) Neutrophils (%) (Auto) 71 % (31-73) Lymphocytes (%) (Auto) 10 % (24-48) Monocytes (%) (Auto) 11 % (0-9) Eosinophils (%) (Auto) 7 % (0-3) Basophils (%) (Auto) 1 % (0-3) Neutrophils # (Auto) 5.4 x10^3/uL (1.8-7.7) Lymphocytes # (Auto) 0.8 x10^3/uL (1.0-4.8) Monocytes # (Auto) 0.8 x10^3/uL (0.0-1.1) Eosinophils # (Auto) 0.5 x10^3/uL (0.0-0.7) Basophils # (Auto) 0.1 x10^3/uL (0.0-0.2) Sodium Level 132 mmol/L (136-145) Potassium Level 4.8 mmol/L (3.5-5.1) Chloride Level 92 mmol/L (98-107) Carbon Dioxide Level 28 mmol/L (21-32) Anion Gap 12 (6-14) Blood Urea Nitrogen 64 mg/dL (8-26) Creatinine 6.8 mg/dL (0.7-1.3) Estimated GFR (Cockcroft-Gault) 9.0 BUN/Creatinine Ratio 9 (6-20) Glucose Level 150 mg/dL (70-99) Calcium Level 9.8 mg/dL (8.5-10.1) Total Bilirubin 0.5 mg/dL (0.2-1.0) Aspartate Amino Transf (AST/SGOT) 73 U/L (15-37) Alanine Aminotransferase (ALT/SGPT) 64 U/L (16-63) Alkaline Phosphatase 166 U/L (46-116) Total Protein 7.3 g/dL (6.4-8.2) Albumin 1.9 g/dL (3.4-5.0) Albumin/Globulin Ratio 0.4 (1.0-1.7) Prothrombin Time 15.8 SEC (11.7-14.0) Prothromb Time International Ratio 1.3 (0.8-1.1) Glucose (Fingerstick) 107 mg/dL (70-99) 114 mg/dL (70-99) Test 09/11/21 20:39 09/12/21 07:13 Glucose (Fingerstick) 192 mg/dL (70-99) 188 mg/dL (70-99) Assessment and Plan Assessmemt and Plan Problems Medical Problems: (1) Ascites Status: Acute (2) Pleural effusion on left Status: Acute (3) Volume overload Status: Acute Comment Review of Relevant I have reviewed the following items juan a (where applicable) has been applied. Medications: Current Medications Medications (Trade) Dose Ordered Sig/Damien Route PRN Reason Start Time Stop Time Status Last Admin Dose Admin Atorvastatin Calcium (Lipitor) 40 mg QHS PO 09/11/21 21:00 09/11/21 20:46 Midodrine (Proamatine) 10 mg [id number] PO 09/11/21 13:00 09/12/21 07:01 Albumin Human 100 ml @ 100 mls/hr 1X ONCE IV 09/11/21 15:30 09/11/21 16:29 DC 09/11/21 15:20 Albumin Human 100 ml @ 100 mls/hr 1X ONCE IV 09/11/21 15:45 09/11/21 16:44 DC 09/11/21 15:45 Justifications for Admission Other Justification KODI MEDEIROS MD Sep 12, 2021 07:59
[2021-09-12] MEDS ORDERED: ONDANSETRON PF 4 MG/2 ML VIAL. IVP PRN (08:00)
[2021-09-12] MEDS ORDERED: IV DEXTROSE 5% 250 ML BAG. IV PRN (08:00)
[2021-09-12] MEDS ORDERED: DEXTROSE 50% 25 GM / 50ML DISP.SYRIN. IV PRN (08:00)
[2021-09-12] MEDS: INSULIN LISPRO 300 UNITS/3 ML VIAL. SQ SCH ×4 (08:43→17:08)
[2021-09-12] MEDS: ASPIRIN ENTERIC COATED 81 MG TABLET.DR. PO SCH (08:43)
[2021-09-12] MEDS: CLOPIDOGREL BISULFATE 75 MG TABLET PO SCH (08:44)
[2021-09-12] MEDS: SERTRALINE 50 MG TABLET. PO SCH (08:44)
[2021-09-12] MEDS: PANTOPRAZOLE 40 MG TABLET.DR. PO SCH ×2 (08:44→16:06)
[2021-09-12] MEDS: ASCORBIC ACID 500 MG TABLET PO SCH (08:44)
[2021-09-12] MEDS: SEVELAMER CARBONATE 800 MG TABLET. PO SCH ×3 (08:44→17:06)
[2021-09-12] MEDS: FOLIC ACID 1 MG TABLET. PO SCH (08:44)
[2021-09-12] MEDS: LEVOTHYROXINE 100 MCG TABLET PO SCH (08:44)
--- NOTE | 2021-09-12 08:51 | PDOC ---
PULMONARY PROGRESS NOTES DATE: 09/12/21 TIME: 08:50 Subjective Patient feels better. Status post thoracentesis and paracentesis 09/11/2021. Vitals Vital Signs Date Time Temp Pulse Resp B/P (MAP) Pulse Ox O2 Delivery O2 Flow Rate FiO2 09/12/21 07:45 Room Air 09/12/21 07:01 85 101/53 09/12/21 07:00 98.0 18 97 98.0 General: Alert, No acute distress Lungs: Clear Cardiovascular: S1 Abdomen: Soft, Other (Moderately obese) Neuro Exam: Alert Extremities: Other (Venous stasis, 1+ edema, multiple skin lesions.) Labs Laboratory Tests Test 09/10/21 17:45 09/10/21 21:10 09/10/21 22:44 09/10/21 23:59 White Blood Count 9.4 x10^3/uL (4.0-11.0) Red Blood Count 2.69 x10^6/uL (4.30-5.70) Hemoglobin 7.8 g/dL (13.0-17.5) Hematocrit 24.4 % (39.0-53.0) Mean Corpuscular Volume 91 fL (79-100) Mean Corpuscular Hemoglobin 29 pg (25-35) Mean Corpuscular Hemoglobin Concent 32 g/dL (31-37) Red Cell Distribution Width 19.6 % (11.5-14.5) Platelet Count 491 x10^3/uL (140-400) Neutrophils (%) (Auto) 82 % (31-73) Lymphocytes (%) (Auto) 7 % (24-48) Monocytes (%) (Auto) 8 % (0-9) Eosinophils (%) (Auto) 4 % (0-3) Basophils (%) (Auto) 0 % (0-3) Neutrophils # (Auto) 7.6 x10^3/uL (1.8-7.7) Lymphocytes # (Auto) 0.6 x10^3/uL (1.0-4.8) Monocytes # (Auto) 0.7 x10^3/uL (0.0-1.1) Eosinophils # (Auto) 0.3 x10^3/uL (0.0-0.7) Basophils # (Auto) 0.0 x10^3/uL (0.0-0.2) Sodium Level 131 mmol/L (136-145) Potassium Level 4.8 mmol/L (3.5-5.1) Chloride Level 90 mmol/L (98-107) Carbon Dioxide Level 27 mmol/L (21-32) Anion Gap 14 (6-14) Blood Urea Nitrogen 62 mg/dL (8-26) Creatinine 6.4 mg/dL (0.7-1.3) Estimated GFR (Cockcroft-Gault) 9.6 BUN/Creatinine Ratio 10 (6-20) Glucose Level 268 mg/dL (70-99) Calcium Level 10.2 mg/dL (8.5-10.1) Magnesium Level 2.1 mg/dL (1.8-2.4) Total Bilirubin 0.5 mg/dL (0.2-1.0) Aspartate Amino Transf (AST/SGOT) 74 U/L (15-37) Alanine Aminotransferase (ALT/SGPT) 61 U/L (16-63) Alkaline Phosphatase 220 U/L (46-116) Troponin I High Sensitivity 212 ng/L (4-75) 228 ng/L (4-75) 240 ng/L (4-75) MG-Kdu-I-Type Natriuretic Peptide > 93972 pg/mL (0-124) Total Protein 7.4 g/dL (6.4-8.2) Albumin 2.0 g/dL (3.4-5.0) Albumin/Globulin Ratio 0.4 (1.0-1.7) Lipase 167 U/L (73-393) Thyroid Stimulating Hormone (TSH) 1.414 uIU/mL (0.358-3.74) Coronavirus (COVID-19)(PCR) Not detected (NOT DETECTD) SARS-CoV-2 Antigen (Rapid) Negative (NEGATIVE) Test 09/11/21 08:15 09/11/21 10:55 09/11/21 11:36 09/11/21 17:12 White Blood Count 7.6 x10^3/uL (4.0-11.0) Red Blood Count 2.64 x10^6/uL (4.30-5.70) Hemoglobin 7.9 g/dL (13.0-17.5) Hematocrit 24.1 % (39.0-53.0) Mean Corpuscular Volume 92 fL (79-100) Mean Corpuscular Hemoglobin 30 pg (25-35) Mean Corpuscular Hemoglobin Concent 33 g/dL (31-37) Red Cell Distribution Width 19.2 % (11.5-14.5) Platelet Count 403 x10^3/uL (140-400) Neutrophils (%) (Auto) 71 % (31-73) Lymphocytes (%) (Auto) 10 % (24-48) Monocytes (%) (Auto) 11 % (0-9) Eosinophils (%) (Auto) 7 % (0-3) Basophils (%) (Auto) 1 % (0-3) Neutrophils # (Auto) 5.4 x10^3/uL (1.8-7.7) Lymphocytes # (Auto) 0.8 x10^3/uL (1.0-4.8) Monocytes # (Auto) 0.8 x10^3/uL (0.0-1.1) Eosinophils # (Auto) 0.5 x10^3/uL (0.0-0.7) Basophils # (Auto) 0.1 x10^3/uL (0.0-0.2) Sodium Level 132 mmol/L (136-145) Potassium Level 4.8 mmol/L (3.5-5.1) Chloride Level 92 mmol/L (98-107) Carbon Dioxide Level 28 mmol/L (21-32) Anion Gap 12 (6-14) Blood Urea Nitrogen 64 mg/dL (8-26) Creatinine 6.8 mg/dL (0.7-1.3) Estimated GFR (Cockcroft-Gault) 9.0 BUN/Creatinine Ratio 9 (6-20) Glucose Level 150 mg/dL (70-99) Calcium Level 9.8 mg/dL (8.5-10.1) Total Bilirubin 0.5 mg/dL (0.2-1.0) Aspartate Amino Transf (AST/SGOT) 73 U/L (15-37) Alanine Aminotransferase (ALT/SGPT) 64 U/L (16-63) Alkaline Phosphatase 166 U/L (46-116) Total Protein 7.3 g/dL (6.4-8.2) Albumin 1.9 g/dL (3.4-5.0) Albumin/Globulin Ratio 0.4 (1.0-1.7) Prothrombin Time 15.8 SEC (11.7-14.0) Prothromb Time International Ratio 1.3 (0.8-1.1) Glucose (Fingerstick) 107 mg/dL (70-99) 114 mg/dL (70-99) Test 09/11/21 20:39 09/12/21 07:13 Glucose (Fingerstick) 192 mg/dL (70-99) 188 mg/dL (70-99) Laboratory Tests Test 09/11/21 10:55 09/11/21 11:36 09/11/21 17:12 09/11/21 20:39 Prothrombin Time 15.8 SEC (11.7-14.0) Prothromb Time International Ratio 1.3 (0.8-1.1) Glucose (Fingerstick) 107 mg/dL (70-99) 114 mg/dL (70-99) 192 mg/dL (70-99) Test 09/12/21 07:13 Glucose (Fingerstick) 188 mg/dL (70-99) Medications Active Scripts Medications Dose Route/Sig Max Daily Dose Days Date Category Percocet 5-325 Mg Tablet (Oxycodone/Acetaminophen) 1 Each Tablet 1 Tab PO PRN Q6HRS PRN 6 09/01/21 Rx Lantus (Insulin Glargine,Hum.rec.anlog) 100 Unit/1 Ml Vial 10 Unit SQ QHS 30 08/25/21 Rx Novolog Flexpen (Insulin Aspart) 100 Unit/1 Ml Insuln.pen 0-9 Unit SQ TIDAC 30 08/25/21 Rx Augmentin 500-125 Tablet (Amoxicillin/Potassium Clav) 1 Each Tablet 1 Tab PO DAILY 10 08/25/21 Rx Gabapentin (Gabapentin) 300 Mg Capsule 300 Mg PO QHS 30 08/25/21 Rx Vitamin C (Ascorbic Acid) 500 Mg Capsule 500 Mg PO DAILY 08/11/21 Reported Renvela (Sevelamer Carbonate) 800 Mg Tablet 1 Tab PO TID 30 08/11/21 Reported Senna Plus Tablet (Sennosides/Docusate Sodium) 1 Each Tablet 2 Tab PO BID 14 08/11/21 Reported Ondansetron Odt (Ondansetron) 4 Mg Tab.rapdis 1 Tab PO PRN Q6HRS PRN 08/11/21 Reported Multivitamins With Minerals (Multivitamin With Minerals) 1 Each Tablet 1 Tab PO DAILY 30 08/11/21 Reported Levothyroxine Sodium 100 Mcg Tablet 1 Tab PO DAILY 08/11/21 Reported Folic Acid 0.8 Mg Tablet 1 Mg PO DAILY 08/11/21 Reported Acetaminophen 325 Mg Tablet 1 Tab PO PRN Q6HRS PRN 24 08/11/21 Reported Midodrine Hcl 10 Mg Tablet 10 Mg PO TID 30 06/30/21 Rx Zoloft (Sertraline Hcl) 100 Mg Tablet 1 Tab PO DAILY 06/15/21 Reported Seroquel (Quetiapine Fumarate) 25 Mg Tablet 1 Tab PO HS 06/15/21 Reported Yajaira-Allan Rx Tablet (Vit B Cmplx 3/Fa/Vit C/Biotin) 1 Each Tablet 1 Tab PO DAILY 30 06/15/21 Reported Clopidogrel (Clopidogrel Bisulfate) 75 Mg Tablet 1 Tab PO DAILY 06/15/21 Reported Pantoprazole Sodium 40 Mg Tablet.dr 40 Mg PO BID 06/15/21 Reported Hydroxyzine Hcl 25 Mg Tablet 1 Tab PO PRN Q8HRS PRN 06/15/21 Reported Furosemide 80 Mg Tablet 1 Tab PO DAILY 06/15/21 Reported Atorvastatin Calcium 40 Mg Tablet 1 Tab PO QHS 06/15/21 Reported Aspirin Ec (Aspirin) 81 Mg Tablet.dr 1 Tab PO DAILY 06/15/21 Reported Impression . 1. Abnormal CT abdomen and pelvis with moderate left-sided pleural effusion with compressive atelectasis. This is secondary to the abdominal process, which showed a large size abdominal ascites. This is likely a transudative effusion. 2. No significant tobaccoism. 3. End-stage renal disease, on hemodialysis. 4. Large ascites. 5. Anemia. Plan . RECOMMENDATIONS: 1. Clinically better. Status post thoracentesis and paracentesis. We will review the analysis of thoracentesis fluid. 2. Follow-up chest x-ray as needed. 3. Continue Renal recommendations with hemodialysis. 4. Follow Cardiology recommendations. 5. Follow GI recommendations. 6. We will follow along with you. OMARI COLEY MD Sep 12, 2021 08:51
[2021-09-12] MEDS: FUROSEMIDE 80 MG TABLET. PO SCH (09:00)
[2021-09-12 09:39] LABS: HEMOGLOBIN 7.6 g/dL (13.0-17.5); RED BLOOD COUNT 2.61 x10^6/uL (4.30-5.70); RED CELL DISTRIBUTION WIDTH 19.6 % (11.5-14.5); WHITE BLOOD COUNT 6.3 x10^3/uL (4.0-11.0)
[2021-09-12 10:03] LABS: CALCIUM 9.2 mg/dL (8.5-10.1); GFR 12.8; POTASSIUM 4.3 mmol/L (3.5-5.1)
[2021-09-12] MEDS ORDERED: fentaNYL PF VIAL 100 MCG/2 ML VIAL IVP PRN (10:30)
[2021-09-12] MEDS: EPOETIN ALFA 20,000 UNIT/ML VIAL for DIALYSIS PTS. SQ SCH (10:35)
[2021-09-12] MEDS: traMADol 50 MG TABLET PO PRN ×2 (10:37→19:40)
--- NOTE | 2021-09-12 10:38 | NUR ---
Dileep held this am. Pt in dialysis. Will reassess BP when pt returns.
--- NOTE | 2021-09-12 10:55 | PDOC ---
Date of Service: DATE: 09/12/21 TIME: 10:48 Subjective: Subjective: Still has some pain, no vomiting, eating better? Better after paracentesis. Objective: Objective: D/w nurse - c/o abd pain, ate most of breakfast. Vital Signs: Vital Signs Date Time Temp Pulse Resp B/P (MAP) Pulse Ox O2 Delivery O2 Flow Rate FiO2 09/12/21 07:45 Room Air 09/12/21 07:01 85 101/53 09/12/21 07:00 98.0 18 97 98.0 Labs: Laboratory Tests Test 09/11/21 10:55 09/11/21 11:36 09/11/21 17:12 09/11/21 20:39 Prothrombin Time 15.8 SEC Prothromb Time International Ratio 1.3 Glucose (Fingerstick) 107 mg/dL 114 mg/dL 192 mg/dL Test 09/12/21 07:13 09/12/21 09:15 Glucose (Fingerstick) 188 mg/dL White Blood Count 6.3 x10^3/uL Red Blood Count 2.61 x10^6/uL Hemoglobin 7.6 g/dL Hematocrit 24.0 % Mean Corpuscular Volume 92 fL Mean Corpuscular Hemoglobin 29 pg Mean Corpuscular Hemoglobin Concent 32 g/dL Red Cell Distribution Width 19.6 % Platelet Count 399 x10^3/uL Sodium Level 133 mmol/L Potassium Level 4.3 mmol/L Chloride Level 96 mmol/L Carbon Dioxide Level 28 mmol/L Anion Gap 9 Blood Urea Nitrogen 37 mg/dL Creatinine 5.0 mg/dL Estimated GFR (Cockcroft-Gault) 12.8 Glucose Level 226 mg/dL Calcium Level 9.2 mg/dL Imaging: Paracentesis and thoracentesis 09/11/21 pending PE: GEN: dialyzing LUNGS: CTAB HEART: RRR ABD: large, softer NEURO/PSYCH: lethargic A/P: Abd pain - better? NSTEMI, left pleural effusion, ascites - s/p para/thoracentesis yesterday ACD H/o stercoral rectal ulcer -- Observe GI-gonzalez. Justicifation of Admission Dx: Justifications for Admission: Justification of Admission Dx: N/A NATASHA MANZO Sep 12, 2021 10:55
--- NOTE | 2021-09-12 10:58 | CARD ---
MR#: [id number] Date of Study: 09/11/2021 Ordering Physician: MATT FARLEY, Referring Physician: Nora SEGURA: [facility]ILL[facility] APPROVED REPORT EXAM: LIMITED Two-dimensional and M-mode echocardiogram with Doppler and color Doppler. Other Information Quality : GoodHR: 93bpm Rhythm : NSR INDICATION SEPSIS, DM, PL EFF Tricuspid Valve TR P. Kzusiuvj124ed/sTR Peak Gr.33mmHg LEFT VENTRICLE The left ventricle is normal size. There is normal left ventricular wall thickness. The Ejection Frac tion is severely impaired. EF 35-40% Septal motion suggestive of conduction defect. Otherwise, there is severe global hypokinesis. No left ventricle thrombus noted on this study. There is no ventricular septal defect visualized. There is no left ventricular aneurysm. There is no mass noted in the left ventricle. RIGHT VENTRICLE The right ventricle is mildly to moderately dilated. There is normal right ventricular wall thickness . RV Systolic function is moderately reduced. ATRIA The left atrium is mildly dilated. The right atrium is moderately dilated. The interatrial septum is intact with no evidence for an atrial septal defect or patent foramen ovale as noted on 2-D or Dopple r imaging. AORTIC VALVE The aortic valve is trileaflet. Doppler and Color Flow revealed no significant aortic regurgitation. There is no aortic valvular vegetation. MITRAL VALVE The mitral valve leaflets are thickened and calcified. There is no evidence of mitral valve prolapse. Doppler and Color-flow revealed mild mitral regurgitation. TRICUSPID VALVE Tricuspid annulus is dilated. Doppler and Color Flow revealed moderate tricuspid regurgitation. RVSP 50 mm Hg There is no tricuspid valve prolapse or vegetation. GREAT VESSELS The aortic root is normal in size. PERICARDIAL EFFUSION There is no evidence of significant pericardial effusion. Critical Notification Critical Value: No <Conclusion> The Ejection Fraction is severely impaired. EF 35-40% Septal motion suggestive of conduction defect. Otherwise, there is severe global hypokinesis. Doppler and Color Flow revealed moderate tricuspid regurgitation. RVSP 50 mm Hg Limited echo only. Technically limited study. Signed by : Tomer Bangura, Electronically Approved : 09/12/2021 10:58:12
--- NOTE | 2021-09-12 11:21 | PDOC ---
Renal-Progress Notes Subjective Notes Notes LESS SOB History of Present Illness Hx of present illness STABLE Vitals Vitals Vital Signs Date Time Temp Pulse Resp B/P (MAP) Pulse Ox O2 Delivery O2 Flow Rate FiO2 09/12/21 07:45 Room Air 09/12/21 07:01 85 101/53 09/12/21 07:00 98.0 18 97 98.0 Weight Weight [ ] I.O. Intake and Output Intake and Output 09/12/21 07:00 Intake Total 440 ml Output Total 8675 ml Balance -8235 ml Intake Oral 440 ml Output Drainage Total 8675 ml Labs Labs Laboratory Tests Test 09/11/21 11:36 09/11/21 17:12 09/11/21 20:39 09/12/21 07:13 Glucose (Fingerstick) 107 mg/dL (70-99) 114 mg/dL (70-99) 192 mg/dL (70-99) 188 mg/dL (70-99) Test 09/12/21 09:15 White Blood Count 6.3 x10^3/uL (4.0-11.0) Red Blood Count 2.61 x10^6/uL (4.30-5.70) Hemoglobin 7.6 g/dL (13.0-17.5) Hematocrit 24.0 % (39.0-53.0) Mean Corpuscular Volume 92 fL (79-100) Mean Corpuscular Hemoglobin 29 pg (25-35) Mean Corpuscular Hemoglobin Concent 32 g/dL (31-37) Red Cell Distribution Width 19.6 % (11.5-14.5) Platelet Count 399 x10^3/uL (140-400) Sodium Level 133 mmol/L (136-145) Potassium Level 4.3 mmol/L (3.5-5.1) Chloride Level 96 mmol/L (98-107) Carbon Dioxide Level 28 mmol/L (21-32) Anion Gap 9 (6-14) Blood Urea Nitrogen 37 mg/dL (8-26) Creatinine 5.0 mg/dL (0.7-1.3) Estimated GFR (Cockcroft-Gault) 12.8 Glucose Level 226 mg/dL (70-99) Calcium Level 9.2 mg/dL (8.5-10.1) Review of Systems Constitutional: yes: alert, oriented Ears/Nose/Throat: Yes: no symptom reported Eyes: Yes: no symptom reported Pulmonary: Yes dyspnea Cardiovascular: Yes no symptom reported Gastrointestional: Yes: constipation Genitourinary: Yes: no symptom reported Musculoskeletal: Yes: no symptom reported Skin: Yes no symptom reported Psychiatric/Neurological: Yes: no symptom reported Physical Exam General Appearance: no apparent distress Skin: warm Respiratory: decreased breath sounds Heart: S1S2 Abdomen: soft, bowel sounds present Genitourinary: bladder flat Extremities: pulses present Neurology: alert Assessment Assessment IMP ESRD-MWF-L ARM BB AVF DM II HTN ANEMIA ASCITES L PLEURAL EFFUSION PLAN HD TODAY UF TO TW RETACRIT WILL FOLLOW CAROLYN MELGAR MD Sep 12, 2021 11:21
--- NOTE | 2021-09-12 11:26 | RAD ---
Ultrasound-guided paracentesis. 09/12/2021 11:23 AM Indication: Ascites: Discussion: The risks and benefits of the procedure including but not limited to bleeding, hypotensio n, and infection were discussed the patient. Informed consent was obtained. Ultrasound evaluation was performed demonstrating ascites, with the largest pocket and the left lower quadrant. The left lower quadrant was prepped and draped in sterile fashion. 1% lidocaine without epinephrine was administere d for local anesthesia. Under direct ultrasound guidance a 5 [place] needle was advanced into the peritoneal space. Serous fluid was aspirated. The catheter was connected to suction and approximatel y 7 liters of fluid was removed. The catheter was then removed and manual pressure was held to achie ve hemostasis. A sterile dressing was applied. Impression: Ultrasound-guided paracentesis with removal of 7 L of ascites Electronically signed by: Doug Wallace MD (09/12/2021 11:24 AM) [id number]
--- NOTE | 2021-09-12 11:29 | PDOC ---
CARDIOLOGY PROGRESS NOTE SUBJECTIVE: HPI: This is a 41 yo male who was admitted for complains of abdominal pain. Imaging showed left pleural effusion and ascites likely needing paracentesis. Additionally, he was found to have elevated troponin levels. Today, he was seen during dialysis and reports mild abdominal discomfort. He denies any chest pain, palpitations, or shortness or breath. PMH: ESRD, CAD, HTN, CHF, hyperlipidemia, and PAD. PSH: Left BKA and R transmetatarsal amputation. FH: Heart Disease. Justicifation of Admission Dx: Justifications for Admission: Justification of Admission Dx: N/A SHIELA FLORES MD Sep 12, 2021 11:29
--- NOTE | 2021-09-12 12:46 | RAD ---
Left Thoracentesis 09/11/2021 4:05 PM Clinical History: Left pleural effusion. Technique: Relative benefits risks and alternatives were discussed with the patient and/or their rep resentative. Written informed consent was obtained. The patient was placed in seated position. A gerhard eout procedure was performed. Sonographic assessment demonstrates a large pleural effusion. A site for skin entry was selected, and subsequently prepped and draped using sterile barrier technique. 1% lidocaine without epinepherine was administered for local anesthesia to the skin and subcutaenous tissues. A 5 [place] sheathed needle was passed into the pleural space. Fluid was aspirated. And the catheter w as connected to a vacuum The catheter was removed and adequate hemostasis was obtained. A sterile d ressing was applied. The patient tolerated the procedure well, without complications. Impression: Successful left-sided ultrasound guided thoracentesis Electronically signed by: Doug Wallace MD (09/12/2021 12:44 PM) [id number]
--- NOTE | 2021-09-12 12:59 | NUR ---
SS following up with discharge planning. SS reviewed pt chart and discussed with pt RN. Pt is from [facility] in [place], ; fax [phone]. COVID19 PCR negative. Pt has outpatient hemodialysis at [facility] in [place], ; fax [phone]. Pt is currently on room air. GI, Cardiology, Nephrology, and Pulmonology following. Pt has Thoracentesis and Paracentesis on 09/11/2021. SS will continue to follow for discharge planning.
[2021-09-12 15:00] VITALS: BP 200/97
--- NOTE | 2021-09-12 15:26 | NUR ---
Wound/Ostomy Care Wound Type/Assessment: WC consult for multiple wounds. 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 Cleansed and assessed all wounds. Treatment Recommendations/Plan: Coccyx- skin prep and hydrocolloid Q3D and PRN Abd- paint with skin prep or betadine daily R heel- [place] with betadine or skin prep, cover with ABD and kerlix, change daily, Heel medix boot Education provided: PU prevention, WC POC Offloading surface/device: Heel medix boot ordered, TQ2H, float heels Recommended Referrals/Tests: na Discharge Recommendations for dressings: see above
[2021-09-12 17:05] VITALS: BP 205/98
[2021-09-12 19:00] VITALS: BP 161/25
--- NOTE | 2021-09-12 19:28 | PDOC ---
CARDIOLOGY PROGRESS NOTE SUBJECTIVE: No chest pain. Has occ dyspnea. No syncope or palpitations OBJECTIVE: Vital Signs/I&O: Vital Signs Date Time Temp Pulse Resp B/P (MAP) Pulse Ox O2 Delivery O2 Flow Rate FiO2 09/12/21 17:05 205/98 (133) 09/12/21 15:00 98.5 84 16 99 98.5 09/12/21 07:45 Room Air I & O 09/11/21 09/11/21 09/12/21 15:00 23:00 07:00 Intake Total 120 ml 320 ml Output Total 8675 ml Balance -8555 ml 320 ml Objective: GEN.: No apparent distress. Alert and oriented. HEENT: Head is normocephalic, atraumatic NECK: Supple. LUNGS: Clear to auscultation. HEART: RRR, S1, S2 present. Peripheral pulses intact ABDOMEN: Soft, nontender. Positive bowel sounds. EXTREMITIES: Without any cyanosis. NEUROLOGIC: Normal speech, normal tone PSYCHIATRIC: Normal affect, normal mood. SKIN: No ulcerations CURRENT MEDICATIONS: Current Medications Medications (Trade) Dose Ordered Sig/Damien Route PRN Reason Start Time Stop Time Status Last Admin Dose Admin Epoetin Kory (PROCRIT for DIALYSIS PTS) 20,000 unit 3X/WEEK SQ 09/12/21 09:00 09/12/21 10:35 Atorvastatin Calcium (Lipitor) 40 mg QHS PO 09/11/21 21:00 09/11/21 20:46 Clopidogrel Bisulfate (Plavix) 75 mg DAILY PO 09/12/21 09:00 09/12/21 08:44 Levothyroxine Sodium (Synthroid) 100 mcg DAILY07 PO 09/12/21 09:00 09/12/21 08:44 Pantoprazole Sodium (Protonix) 40 mg BIDAC PO 09/12/21 09:00 09/12/21 16:06 Sevelamer Carbonate (Renvela) 800 mg TIDWMEALS PO 09/12/21 09:00 09/12/21 17:06 Ascorbic Acid (Vitamin C) 500 mg DAILY PO 09/12/21 09:00 09/12/21 08:44 Folic Acid (Folic Acid) 1 mg DAILY PO 09/12/21 09:00 09/12/21 08:44 Sertraline HCl (Zoloft) 100 mg DAILY PO 09/12/21 09:00 09/12/21 08:44 Insulin Human Lispro (HumaLOG) 0-7 UNITS TIDWMEALS SQ 09/12/21 08:00 09/12/21 17:08 Tramadol HCl (Ultram) 50 mg PRN Q6HRS PRN PO PAIN 09/12/21 10:30 09/12/21 10:37 DIAGNOSTIC TESTING: Labs/echo reviewed. Labs: Laboratory Tests 09/12/21 09:15 Laboratory Tests Test 09/11/21 20:39 09/12/21 07:13 09/12/21 09:15 09/12/21 12:05 Glucose (Fingerstick) 192 mg/dL (70-99) H 188 mg/dL (70-99) H 153 mg/dL (70-99) H White Blood Count 6.3 x10^3/uL (4.0-11.0) Red Blood Count 2.61 x10^6/uL (4.30-5.70) L Hemoglobin 7.6 g/dL (13.0-17.5) L Hematocrit 24.0 % (39.0-53.0) L Mean Corpuscular Volume 92 fL (79-100) Mean Corpuscular Hemoglobin 29 pg (25-35) Mean Corpuscular Hemoglobin Concent 32 g/dL (31-37) Red Cell Distribution Width 19.6 % (11.5-14.5) H Platelet Count 399 x10^3/uL (140-400) Sodium Level 133 mmol/L (136-145) L Potassium Level 4.3 mmol/L (3.5-5.1) Chloride Level 96 mmol/L (98-107) L Carbon Dioxide Level 28 mmol/L (21-32) Anion Gap 9 (6-14) Blood Urea Nitrogen 37 mg/dL (8-26) H Creatinine 5.0 mg/dL (0.7-1.3) H Estimated GFR (Cockcroft-Gault) 12.8 Glucose Level 226 mg/dL (70-99) H Calcium Level 9.2 mg/dL (8.5-10.1) Test 09/12/21 16:40 09/12/21 19:06 Glucose (Fingerstick) 177 mg/dL (70-99) H 139 mg/dL (70-99) H ASSESSMENT: 1. Abdominal pain with large ascites: per staff gained about 5 KG since last HD 2. NSTEMI: mild troponin elevation, demand mediated type 2 3. Coronary artery disease s/p Cardiac catheterization in January 2021 showed patent RCA stent. He is presently chest pain-free. 4. SSS s/p leadless pacemaker implantation, stable 5. End-stage renal disease on hemodialysis per nephrology team 6. Acute on chronic diastolic heart failure 7. PAD s/p left BKA and and more recent right transmetatarsal amputation 8. Hypertension: Blood pressure borderline low 9. Hyperlipidemia: Continue statins 10. Hypothyroidism: on replacement 11. DM2: Treat per IM 12. h/o CVA 13. Anemia of chronic disease 14. Recent COVID +: 09/02/2021 PLAN: 1. Mild worsening of LV function. BP is very labile. 2. Supportive care for now with optimization of volume status via HD. No further inpt CV testing needed. Justicifation of Admission Dx: Justifications for Admission: Justification of Admission Dx: N/A SHIELA FLORES MD Sep 12, 2021 19:28
[2021-09-12] MEDS: ATORVASTATIN CALCIUM 40 MG TABLET. PO SCH (21:12)
[2021-09-12] MEDS: QUEtiapine 25 MG TABLET. PO SCH (21:13)
[2021-09-12] MEDS: GABAPENTIN 300 MG CAPSULE. PO SCH (21:13)
[2021-09-12] MEDS: INSULIN GLARGINE SYRINGE. SQ SCH (21:19)
[2021-09-12 23:00] VITALS: BP 135/33
[2021-09-13 03:00] VITALS: BP 100/36
[2021-09-13] MEDS: PANTOPRAZOLE 40 MG TABLET.DR. PO SCH ×2 (05:45→15:55)
[2021-09-13] MEDS: LEVOTHYROXINE 100 MCG TABLET PO SCH (05:45)
[2021-09-13] MEDS: MIDODRINE 5 MG TABLET PO SCH ×3 (05:46→17:39)
[2021-09-13 07:00] VITALS: BP 155/74
[2021-09-13] MEDS: SEVELAMER CARBONATE 800 MG TABLET. PO SCH ×3 (09:12→17:30)
[2021-09-13] MEDS: ASPIRIN ENTERIC COATED 81 MG TABLET.DR. PO SCH (09:12)
[2021-09-13] MEDS: FUROSEMIDE 80 MG TABLET. PO SCH (09:13)
[2021-09-13] MEDS: SERTRALINE 50 MG TABLET. PO SCH (09:13)
[2021-09-13] MEDS: CLOPIDOGREL BISULFATE 75 MG TABLET PO SCH (09:13)
[2021-09-13] MEDS: FOLIC ACID 1 MG TABLET. PO SCH (09:13)
[2021-09-13] MEDS: ASCORBIC ACID 500 MG TABLET PO SCH (09:13)
[2021-09-13] MEDS: INSULIN LISPRO 300 UNITS/3 ML VIAL. SQ SCH ×3 (09:16→17:44)
--- NOTE | 2021-09-13 10:46 | PDOC ---
Renal-Progress Notes Subjective Notes Notes NO NEW COMPLAINTS, LESS SOB History of Present Illness Hx of present illness STABLE Vitals Vitals Vital Signs Date Time Temp Pulse Resp B/P (MAP) Pulse Ox O2 Delivery O2 Flow Rate FiO2 09/13/21 09:12 83 155/74 09/13/21 07:00 97.6 14 97 Room Air 97.6 Weight Weight [ ] I.O. Intake and Output Intake and Output 09/13/21 07:00 Intake Total 440 ml Balance 440 ml Intake Oral 440 ml # Bowel Movements 2 Labs Labs Laboratory Tests Test 09/12/21 12:05 09/12/21 16:40 09/12/21 19:06 09/13/21 07:08 Glucose (Fingerstick) 153 mg/dL (70-99) 177 mg/dL (70-99) 139 mg/dL (70-99) 182 mg/dL (70-99) Micro Micro Microbiology 09/11/21 Gram Stain - Final, Resulted 09/11/21 Aerobic and Anaerobic Culture - Preliminary, Resulted Review of Systems Constitutional: yes: alert, oriented Ears/Nose/Throat: Yes: no symptom reported Eyes: Yes: no symptom reported Pulmonary: Yes dyspnea Cardiovascular: Yes no symptom reported Gastrointestional: Yes: constipation Genitourinary: Yes: no symptom reported Musculoskeletal: Yes: no symptom reported Skin: Yes no symptom reported Psychiatric/Neurological: Yes: no symptom reported Physical Exam General Appearance: no apparent distress Skin: warm Respiratory: decreased breath sounds Heart: S1S2 Abdomen: soft, bowel sounds present Genitourinary: bladder flat Extremities: pulses present Neurology: alert Assessment Assessment IMP ESRD-MWF-L ARM BB AVF DM II HTN ANEMIA ASCITES L PLEURAL EFFUSION PLAN HD WEDNESDAY RETACRIT WILL FOLLOW CAROLYN MELGAR MD Sep 13, 2021 10:46
--- NOTE | 2021-09-13 10:54 | PDOC ---
CARDIOLOGY PROGRESS NOTE SUBJECTIVE: No new events overnight. Patient denies any chest pain or dyspnea. He is not fully aware of all his medical issues. He reports that he did not know he was COVID positive recently. OBJECTIVE: Vital Signs/I&O: Vital Signs Date Time Temp Pulse Resp B/P (MAP) Pulse Ox O2 Delivery O2 Flow Rate FiO2 09/13/21 09:12 83 155/74 09/13/21 07:00 97.6 14 97 Room Air 97.6 I & O 09/12/21 09/12/21 09/13/21 15:00 23:00 07:00 Intake Total 200 ml 240 ml Balance 200 ml 240 ml Objective: GEN.: No apparent distress. Alert and oriented. HEENT: Head is normocephalic, atraumatic NECK: Supple. LUNGS: Decreased breath sounds. HEART: RRR, S1, S2 present. No carotid bruits. +TR murmur ABDOMEN: Soft, nontender. Positive bowel sounds. EXTREMITIES: Without any cyanosis. BKA and diminished pulses. NEUROLOGIC: Normal speech, normal tone PSYCHIATRIC: Normal affect, normal mood. SKIN: Multiple ulcerations CURRENT MEDICATIONS: Meds reviewed. DIAGNOSTIC TESTING: Labs: Laboratory Tests Test 09/12/21 12:05 09/12/21 16:40 09/12/21 19:06 09/13/21 07:08 Glucose (Fingerstick) 153 mg/dL (70-99) H 177 mg/dL (70-99) H 139 mg/dL (70-99) H 182 mg/dL (70-99) H ASSESSMENT: 1. Abdominal pain with large ascites: s/p paracentesis. 2. NSTEMI: mild troponin elevation, demand mediated type 2 3. Coronary artery disease s/p Cardiac catheterization in January 2021 showed patent RCA stent. He is presently chest pain-free. 4. SSS s/p leadless pacemaker implantation, stable 5. End-stage renal disease on hemodialysis per nephrology team 6. Acute on chronic systolic/ diastolic heart failure, EF 35% 7. PAD s/p left BKA and and more recent right transmetatarsal amputation 8. Hypertension: On midodrine therapy due to Low BP in the past and due to as cites. 9. Hyperlipidemia: Continue statins 10. Hypothyroidism: on replacement 11. DM2: Treat per IM 12. h/o CVA 13. Anemia of chronic disease 14. Recent COVID +: 09/02/2021 PLAN: 1. Patient would likely benefit from palliative care evaluation. I am not certain he is able to care for himself [facility] and likely not a transplant candidate given his multiorgan failure. 2. He is unable to tolerate usual goal directed HF therapies due to renal failure and hypotension issues in the past. 3. Continue fluid removal via HD. 4. We will stop his asa and continue plavix only given his anemia history. No need for dual antiplatelet therapy given severe anemia issues. Supportive care. We will follow along. Justicifation of Admission Dx: Justifications for Admission: Justification of Admission Dx: N/A SHIELA FLORES MD Sep 13, 2021 10:53
[2021-09-13 11:00] VITALS: BP 185/91
--- NOTE | 2021-09-13 12:58 | PDOC ---
[employer] PROGRESS NOTE Date of Service DOS: DATE: 09/13/21 TIME: 12:35 Chief Complaint Chief Complaint Ascites - previously multiple paracenteses from [facility]. Consult GI for ascites etiology and continued outpatient paracentesis Shortness of breath -with cough. Chest radiograph may indicate his pleural effusions worsen contributing to shortness of breath. CT chest to better elucidate. Consult pulmonary medicine Diabetic toe ulceration and gangrene to right toes digits 1-3, concern for osteomyelitis -status post right transmetatarsal amputation on 08/22/2021 Peripheral vascular disease - s/p left BKA and recent right TMA Anemia consistent with ESRD Chronic respiratory failure with hypoxia - with cor pulmonale Left pleural effusion -pulmonary medicine to see ESRD on HD -nephrology to see for regularly scheduled dialysis DM2 - sliding scale Stage III sacral decubitus ulcer, POA H/o CVA - residual left sided weakness and near blindness HLD - Statin Chronic diastolic CHF - clinically fluid overloaded Severe protein calorie malnutrition - 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 Recent COVID-19 on 09/02/2021 FEN - Renal dialysis PPX -[facility] FULL CODE DIspo - inpatient History of Present Illness History of Present Illness Mr Esparza is a 41yo male who has been on dialysis for 4 years, end-stage renal disease, prior cerebrovascular accident; peripheral neuropathy; congestive heart failure; hyperlipidemia; hypertension; asthma; gastroesophageal reflux disease; s/p left BKA; history of depression; diabetes who is a long-term SNF resident who returns to ED from his SNF for concerns for 7 out of 10 sharp intermittent epigastric and periumbilical abdominal pain not feeling well. Labs with NA 131, K4.8, BUN 62, CR 6.4, glucose 268, calcium 10.2, mag 2.1, bilirubin 0.5, AST 74, ALT 61, alkaline phosphatase 220, albumin 2 lipase 167, TSH 1.4, NT proBNP greater than 35,000, high-sensitivity troponin initially 212 on repeat 228 and subsequent 240, rapid COVID-19 negative Chest radiograph left pleural effusion vascular congestion, noncontrast CT abdomen pelvis large amount of intra-abdominal ascites. 09/12: Status post large-volume thoracentesis on the left and paracentesis. NA 1 33 today. Still feeling weak has not been out of bed notes he is not getting physical therapy or transitions to chair and has a heel offloading boot for his right foot he notes he does not want to discontinue dialysis and is not currently interested in hospice his goal to get back home to [place] to live with his mother and father and feels he has been trapped and skilled rehab. Very weak 09/13: Feels weak not out of bed yet. Dyspnea even with moving in bed. Discussed palliative care options given that he notes he feels the same as he did previously about this though upon discussion of his medical comorbidities he expresses little insight into congestive heart failure vascular disease prior stroke. Vitals/I&O Vitals/I&O: Vital Signs Date Time Temp Pulse Resp B/P (MAP) Pulse Ox O2 Delivery O2 Flow Rate FiO2 09/13/21 11:00 97.8 86 14 185/91 (122) 97 Room Air 97.8 I & O 09/12/21 09/12/21 09/13/21 15:00 23:00 07:00 Intake Total 200 ml 240 ml Balance 200 ml 240 ml Physical Exam General: Alert, Cooperative, moderate distress Heart: Regular rate (SR), Other (distant heart sounds) Lungs: Clear Abdomen: Normal bowel sounds, Soft, No hepatosplenomegaly, No masses, Other (Diffuse fluid wave) Extremities: Other (Left upper extremity AV fistula with good bruit. 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 Medications: Current Medications Medications (Trade) Dose Ordered Sig/Damien Route PRN Reason Start Time Stop Time Status Last Admin Dose Admin Gabapentin (Neurontin) 300 mg QHS PO 09/12/21 21:00 09/12/21 21:13 Insulin Glargine (Lantus Syringe) 8 unit QHS SQ 09/12/21 21:00 09/12/21 21:19 Quetiapine Fumarate (SEROquel) 25 mg HS PO 09/12/21 21:00 09/12/21 21:13 Justifications for Admission Other Justification KODI MEDEIROS MD Sep 13, 2021 12:58
[2021-09-13 15:00] VITALS: BP 152/85
[2021-09-13] MEDS: hydrOXYzine 25 MG TABLET PO PRN (15:53)
[2021-09-13] MEDS: traMADol 50 MG TABLET PO PRN (15:54)
[2021-09-13 19:52] VITALS: BP 97/40
[2021-09-13] MEDS: QUEtiapine 25 MG TABLET. PO SCH (21:28)
[2021-09-13] MEDS: ATORVASTATIN CALCIUM 40 MG TABLET. PO SCH (21:28)
[2021-09-13] MEDS: GABAPENTIN 300 MG CAPSULE. PO SCH (21:28)
[2021-09-13] MEDS: INSULIN GLARGINE SYRINGE. SQ SCH (21:34)
[2021-09-13 23:43] VITALS: BP 110/68
[2021-09-14] MEDS: traMADol 50 MG TABLET PO PRN ×2 (02:15→21:01)
[2021-09-14] MEDS: hydrOXYzine 25 MG TABLET PO PRN ×2 (02:15→21:00)
[2021-09-14 03:38] VITALS: BP 128/73
[2021-09-14] MEDS: LEVOTHYROXINE 100 MCG TABLET PO SCH (06:36)
[2021-09-14] MEDS: PANTOPRAZOLE 40 MG TABLET.DR. PO SCH ×2 (06:36→16:35)
[2021-09-14] MEDS: MIDODRINE 5 MG TABLET PO SCH (06:38)
[2021-09-14 07:00] VITALS: BP 135/71
[2021-09-14] MEDS: INSULIN LISPRO 300 UNITS/3 ML VIAL. SQ SCH ×3 (08:38→18:41)
[2021-09-14] MEDS: ASCORBIC ACID 500 MG TABLET PO SCH (08:39)
[2021-09-14] MEDS: SERTRALINE 50 MG TABLET. PO SCH (08:39)
[2021-09-14] MEDS: FOLIC ACID 1 MG TABLET. PO SCH (08:39)
[2021-09-14] MEDS: SEVELAMER CARBONATE 800 MG TABLET. PO SCH ×3 (08:40→16:35)
[2021-09-14] MEDS: FUROSEMIDE 80 MG TABLET. PO SCH (08:40)
[2021-09-14] MEDS: CLOPIDOGREL BISULFATE 75 MG TABLET PO SCH (08:40)
--- NOTE | 2021-09-14 10:22 | PDOC ---
[employer] PROGRESS NOTE Date of Service DOS: DATE: 09/14/21 TIME: 10:20 Chief Complaint Chief Complaint Ascites - previously multiple paracenteses from [facility]. Consult GI for ascites etiology and continued outpatient paracentesis Shortness of breath -with cough. Chest radiograph may indicate his pleural effusions worsen contributing to shortness of breath. CT chest to better elucidate. Consult pulmonary medicine Diabetic toe ulceration and gangrene to right toes digits 1-3, concern for osteomyelitis -status post right transmetatarsal amputation on 08/22/2021 Peripheral vascular disease - s/p left BKA and recent right TMA Anemia consistent with ESRD Chronic respiratory failure with hypoxia - with cor pulmonale Left pleural effusion -pulmonary medicine to see ESRD on HD -nephrology to see for regularly scheduled dialysis DM2 - sliding scale Stage III sacral decubitus ulcer, POA H/o CVA - residual left sided weakness and near blindness HLD - Statin Chronic diastolic CHF - clinically fluid overloaded Severe protein calorie malnutrition - 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 FEN - Renal dialysis PPX -[facility] FULL CODE DIspo - inpatient History of Present Illness History of Present Illness Mr Esparza is a 41yo male who has been on dialysis for 4 years, end-stage renal disease, prior cerebrovascular accident; peripheral neuropathy; congestive heart failure; hyperlipidemia; hypertension; asthma; gastroesophageal reflux disease; s/p left BKA; history of depression; diabetes who is a long-term SNF resident who returns to ED from his SNF for concerns for 7 out of 10 sharp intermittent epigastric and periumbilical abdominal pain not feeling well. Labs with NA 131, K4.8, BUN 62, CR 6.4, glucose 268, calcium 10.2, mag 2.1, bilirubin 0.5, AST 74, ALT 61, alkaline phosphatase 220, albumin 2 lipase 167, TSH 1.4, NT proBNP greater than 35,000, high-sensitivity troponin initially 212 on repeat 228 and subsequent 240, rapid COVID-19 negative Chest radiograph left pleural effusion vascular congestion, noncontrast CT abdomen pelvis large amount of intra-abdominal ascites. 09/12: Status post large-volume thoracentesis on the left and paracentesis. NA 133 today. Still feeling weak has not been out of bed notes he is not getting physical therapy or transitions to chair and has a heel offloading boot for his right foot he notes he does not want to discontinue dialysis and is not currently interested in hospice his goal to get back home to [place] to live with his mother and father and feels he has been trapped and skilled rehab. Very weak 09/13: Feels weak not out of bed yet. Dyspnea even with moving in bed. Discussed palliative care options given that he notes he feels the same as he did previously about this though upon discussion of his medical comorbidities he expresses little insight into congestive heart failure vascular disease prior stroke. 09/14: Seen bedside able to sit up with occupational therapy and has boot on right foot but unable to fully transition and has extremely poor ADLs especially with bathing and toileting. Of note he has a fluctuant mass on his right forearm with 1 cm eschar central necrosis concerning for an abscess will order nonvascular ultrasound. Discussed overall goals of care and he has more questions about his prior strokes congestive heart failure ascites renal disease and vascular disease. Discussed with Occupational Therapy and nursing. Vitals/I&O Vitals/I&O: Vital Signs Date Time Temp Pulse Resp B/P (MAP) Pulse Ox O2 Delivery O2 Flow Rate FiO2 09/14/21 06:38 80 100/28 09/14/21 03:38 97.7 16 95 Room Air 97.7 I & O 09/13/21 09/13/21 09/14/21 15:00 23:00 07:00 Intake Total 120 ml 580 ml Balance 120 ml 580 ml Physical Exam General: Alert, Cooperative, moderate distress Heart: Regular rate (SR), Other (distant heart sounds) Lungs: Clear Abdomen: Normal bowel sounds, Soft, No hepatosplenomegaly, No masses, Other (Diffuse fluid wave) Extremities: Other (Left upper extremity AV fistula with good bruit. 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 Justifications for Admission Other Justification KODI MEDEIROS MD Sep 14, 2021 10:22
[2021-09-14 11:00] VITALS: BP 134/75
--- NOTE | 2021-09-14 11:09 | PDOC ---
Renal-Progress Notes Subjective Notes Notes NO NEW COMPLAINTS History of Present Illness Hx of present illness STABLE Vitals Vitals Vital Signs Date Time Temp Pulse Resp B/P (MAP) Pulse Ox O2 Delivery O2 Flow Rate FiO2 09/14/21 06:38 80 100/28 09/14/21 03:38 97.7 16 95 Room Air 97.7 Weight Weight [ ] I.O. Intake and Output Intake and Output 09/14/21 07:00 Intake Total 700 ml Balance 700 ml Intake Oral 700 ml Labs Labs Laboratory Tests Test 09/13/21 11:58 09/13/21 16:40 09/13/21 20:47 09/14/21 08:28 Glucose (Fingerstick) 149 mg/dL (70-99) 153 mg/dL (70-99) 163 mg/dL (70-99) 168 mg/dL (70-99) Micro Micro Microbiology 09/11/21 Gram Stain - Final, Resulted 09/11/21 Aerobic and Anaerobic Culture - Preliminary, Resulted Review of Systems Constitutional: yes: alert, oriented Ears/Nose/Throat: Yes: no symptom reported Eyes: Yes: no symptom reported Pulmonary: Yes dyspnea Cardiovascular: Yes no symptom reported Gastrointestional: Yes: constipation Genitourinary: Yes: no symptom reported Musculoskeletal: Yes: no symptom reported Skin: Yes no symptom reported Psychiatric/Neurological: Yes: no symptom reported Physical Exam General Appearance: no apparent distress Skin: warm Respiratory: decreased breath sounds Heart: S1S2 Abdomen: soft, bowel sounds present Genitourinary: bladder flat Extremities: pulses present Neurology: alert Assessment Assessment IMP ESRD-MWF-L ARM BB AVF DM II HTN ANEMIA ASCITES L PLEURAL EFFUSION PLAN HD TOMORROW SCHEDULED PARACENTESIS RETACRIT WILL FOLLOW CAROLYN MELGAR MD Sep 14, 2021 11:09
[2021-09-14] MEDS ORDERED: MIDODRINE 5 MG TABLET PO PRN (13:15)
[2021-09-14] MEDS ORDERED: SENNOSIDES/DOCUSATE 8.6/50MG TABLET. PO PRN (13:15)
--- NOTE | 2021-09-14 14:51 | RAD ---
INDICATION: Reason: Right forearm fluctuant mass, assess for abscess / Spl. Instructions: / History : COMPARISON: None. FINDINGS: Focused ultrasound images are obtained of the right forearm in the region of concern for wound. There is some edema seen within the subcutaneous soft tissues with a masslike structure in the region measuring approximately 50 x 70 x 30 mm. IMPRESSION: * Masslike structure in the subcutaneous soft tissues at the right distal forearm. This could be se condary to cause such as inflammation of the subcutaneous fat from causes such as cellulitis but a fowler bcutaneous mass is not excluded on this examination and follow-up can be obtained to ensure that this appropriately resolves. No drainable fluid collection is seen. Electronically signed by: Son Blair MD (09/14/2021 2:49 PM) [id number]
[2021-09-14 15:00] VITALS: BP 127/72
[2021-09-14] MEDS: POLYETHYLENE GLYCOL 3350 17 GM PACKET. PO SCH (16:35)
[2021-09-14 19:59] VITALS: BP 160/88
[2021-09-14] MEDS: GABAPENTIN 300 MG CAPSULE. PO SCH (20:50)
[2021-09-14] MEDS: ATORVASTATIN CALCIUM 40 MG TABLET. PO SCH (20:50)
[2021-09-14] MEDS: QUEtiapine 25 MG TABLET. PO SCH (20:50)
[2021-09-14] MEDS: INSULIN GLARGINE SYRINGE. SQ SCH (20:55)
[2021-09-14] MEDS ORDERED: PSYLLIUM HUSK (SUGAR FREE) 1 PKT PACKET PO SCH (21:00)
[2021-09-14] MEDS ORDERED: BENZOCAINE/MENTHOL LOZENGE. PO PRN (21:45)
[2021-09-14 23:24] VITALS: BP 146/78
[2021-09-15 03:39] VITALS: BP 127/73
[2021-09-15] MEDS: LEVOTHYROXINE 100 MCG TABLET PO SCH (06:13)
[2021-09-15] MEDS: PANTOPRAZOLE 40 MG TABLET.DR. PO SCH (06:13)
[2021-09-15 07:00] VITALS: BP 118/70
[2021-09-15] MEDS ORDERED: DIALYSIS PATIENT. MC PRN (07:45)
[2021-09-15] MEDS ORDERED: IV NORMAL SALINE 1000ML BAG 1,000 ML IV PRN ×2 (07:45)
[2021-09-15] MEDS: SEVELAMER CARBONATE 800 MG TABLET. PO SCH ×2 (08:00→12:23)
[2021-09-15] MEDS: INSULIN LISPRO 300 UNITS/3 ML VIAL. SQ SCH ×2 (08:00→12:00)
[2021-09-15 08:01] LABS: HEMATOCRIT 29.4 % (39.0-53.0); HEMOGLOBIN 9.2 g/dL (13.0-17.5); RED BLOOD COUNT 3.17 x10^6/uL (4.30-5.70); RED CELL DISTRIBUTION WIDTH 20.1 % (11.5-14.5); WHITE BLOOD COUNT 8.4 x10^3/uL (4.0-11.0)
[2021-09-15 08:21] LABS: CALCIUM 9.4 mg/dL (8.5-10.1); CREATININE 6.8 mg/dL (0.7-1.3); PHOSPHORUS 7.7 mg/dL (2.6-4.7); POTASSIUM 5.4 mmol/L (3.5-5.1)
[2021-09-15] MEDS: POLYETHYLENE GLYCOL 3350 17 GM PACKET. PO SCH (09:00)
[2021-09-15] MEDS ORDERED: MORPHINE SULFATE 2 MG/ML INJ. IVP PRN (09:00)
--- NOTE | 2021-09-15 10:37 | SNU/HH DC ---
DISCHARGE ORDERS DISCHARGE INFORMATION: FINAL DIAGNOSIS Problems Medical Problems: (1) Ascites Status: Acute (2) Pleural effusion on left Status: Acute (3) Volume overload Status: Acute CONDITION ON DISCHARGE: Stable CODE STATUS: Code Status: Full JAIL: SNF STAY <30 DAYS: No HOSPICE: HOSPICE: No HOSPICE EVAL & TREAT: No LTAC: ADMIT TO LTAC: No POST DISCHARGE ORDERS: ACTIVITY ORDERS: No restrictions, Other, see below WEIGHT BEARING STATUS: Non weight bearing BATHING ORDERS: Shower-keep dressing dry, No Tub Bath until see DIET AFTER DISCHARGE: Renal WOUND/INCISION CARE: Other, see below CHECKS AFTER DISCHARGE: CHECKS AFTER DISCHARGE: Check blood press - daily, Check blood sugar, ac/hs, Check your Temp as needed TREATMENT/EQUIPMENT ORDERS: ADAPTIVE EQUIPMENT NEEDED: None Physical Therapy For: Evalulation/Treatment Occupational Therapy For: Evaluation/Treatment DISCHARGE MEDICATIONS: Home Meds Active Scripts Oxycodone/Apap 5-325 (PERCOCET 5-325 MG TABLET ) 1 Each Tablet, 1 TAB PO PRN Q6HRS PRN for MODERATE PAIN for 6 Days, #24 TAB Prov:RODERICK HUANG MD 09/01/21 Insulin Glargine,Hum.rec.anlog (LANTUS) 100 Unit/1 Ml Vial, 10 UNIT SQ QHS for DM2 for 30 Days, #30 EACH Prov:KODI MEDEIROS MD 08/25/21 Insulin Aspart (NOVOLOG FLEXPEN) 100 Unit/1 Ml Insuln.pen, 0-9 UNIT SQ TIDAC for DMII for 30 Days, #30 SYR Prov:KODI MEDEIROS MD 08/25/21 Amoxicillin/Potassium Clav (AUGMENTIN 500-125 TABLET) 1 Each Tablet, 1 TAB PO DAILY for MRSA SKIN INFECTION for 10 Days, #10 TAB 0 Refills Prov:KODI MEDEIROS MD 08/25/21 Gabapentin (GABAPENTIN ) 300 Mg Capsule, 300 MG PO QHS for NEUROGENIC PAIN for 30 Days, #30 CAP 3 Refills Prov:KODI MEDEIROS MD 08/25/21 Midodrine Hcl (MIDODRINE HCL) 10 Mg Tablet, 10 MG PO TID for hypotension for 30 Days, #90 TAB Prov:JULIO CÉSAR BOYD MD 06/30/21 Reported Medications Ascorbic Acid (Vitamin C) 500 Mg Capsule, 500 MG PO DAILY for SUPPLEMENT , CAP 08/11/21 Sevelamer Carbonate (RENVELA) 800 Mg Tablet, 1 TAB PO TID for ESRD for 30 Days, #90 TAB 0 Refills 08/11/21 Sennosides/Docusate Sodium (SENNA PLUS TABLET) 1 Each Tablet, 2 TAB PO BID for CONSTIPATION for 14 Days, #56 TAB 0 Refills 08/11/21 Ondansetron (ONDANSETRON ODT) 4 Mg Tab.rapdis, 1 TAB PO PRN Q6HRS PRN for NAUSEA, #16 TAB 08/11/21 Multivitamin With Minerals (MULTIVITAMINS WITH MINERALS) 1 Each Tablet, 1 TAB PO DAILY for SUPPLEMENT for 30 Days, #30 TAB 0 Refills 08/11/21 Levothyroxine Sodium (LEVOTHYROXINE SODIUM) 100 Mcg Tablet, 1 TAB PO DAILY for HYPOTHYROIDISM, #30 TAB 5 Refills 08/11/21 Folic Acid (FOLIC ACID) 0.8 Mg Tablet, 1 MG PO DAILY for SUPPLEMENT, TAB 08/11/21 Acetaminophen (ACETAMINOPHEN) 325 Mg Tablet, 1 TAB PO PRN Q6HRS PRN for pain or fever for 24 Days, #100 TAB 0 Refills 08/11/21 Sertraline Hcl (ZOLOFT) 100 Mg Tablet, 1 TAB PO DAILY for depression, #30 TAB 5 Refills 06/15/21 Quetiapine Fumarate (SEROQUEL) 25 Mg Tablet, 1 TAB PO HS for depression, #30 TAB 2 Refills 06/15/21 Vit B Cmplx 3/Fa/Vit C/Biotin (ANA-GISELL RX TABLET) 1 Each Tablet, 1 TAB PO DAILY for esrd for 30 Days, #30 TAB 0 Refills 06/15/21 Clopidogrel Bisulfate (CLOPIDOGREL) 75 Mg Tablet, 1 TAB PO DAILY for anticoag, #90 TAB 1 Refill 06/15/21 Pantoprazole Sodium (Pantoprazole Sodium) 40 Mg Tablet.dr, 40 MG PO BID for GERD, TAB.SR 06/15/21 Hydroxyzine Hcl (HYDROXYZINE HCL) 25 Mg Tablet, 1 TAB PO PRN Q8HRS PRN for ITCHING, #30 TAB 06/15/21 Furosemide (FUROSEMIDE) 80 Mg Tablet, 1 TAB PO DAILY for HTN, #30 TAB 5 Refills 06/15/21 Atorvastatin Calcium (ATORVASTATIN CALCIUM) 40 Mg Tablet, 1 TAB PO QHS for HLD, #90 TAB 3 Refills 06/15/21 Aspirin (ASPIRIN EC) 81 Mg Tablet., 1 TAB PO DAILY for heart health, #30 TAB 3 Refills 06/15/21 ADRIAN CAMARENA III DO Sep 15, 2021 10:37
--- NOTE | 2021-09-15 11:17 | PDOC ---
[employer] PROGRESS NOTE Date of Service DOS: DATE: 09/15/21 TIME: 11:15 Chief Complaint Chief Complaint Ascites - previously multiple paracenteses from [facility]. Consult GI for ascites etiology and continued outpatient paracentesis Shortness of breath -with cough. Chest radiograph may indicate his pleural effusions worsen contributing to shortness of breath. CT chest to better elucidate. 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 FEN - Renal dialysis PPX -heparin FULL CODE DIspo - inpatient History of Present Illness History of Present Illness 09/15/2021 Patient seen and examined in dialysis Had a headache I ordered some morphine for him per his request Request to go home after dialysis Discussed with case management Discussed with RN Hope to discharge after dialysis today to his long-term care facility Mr Esparza is a 41yo male who has been on dialysis for 4 years, end-stage renal disease, prior cerebrovascular accident; peripheral neuropathy; congestive heart failure; hyperlipidemia; hypertension; asthma; gastroesophageal reflux disease; s/p left BKA; history of depression; diabetes who is a long-term SNF resident who returns to ED from his SNF for concerns for 7 out of 10 sharp intermittent epigastric and periumbilical abdominal pain not feeling well. Labs with NA 131, K4.8, BUN 62, CR 6.4, glucose 268, calcium 10.2, mag 2.1, bilirubin 0.5, AST 74, ALT 61, alkaline phosphatase 220, albumin 2 lipase 167, TSH 1.4, NT proBNP greater than 35,000, high-sensitivity troponin initially 212 on repeat 228 and subsequent 240, rapid COVID-19 negative Chest radiograph left pleural effusion vascular congestion, noncontrast CT abdomen pelvis large amount of intra-abdominal ascites. 09/12: Status post large-volume thoracentesis on the left and paracentesis. NA 133 today. Still feeling weak has not been out of bed notes he is not getting physical therapy or transitions to chair and has a heel offloading boot for his right foot he notes he does not want to discontinue dialysis and is not currently interested in hospice his goal to get back home to [place] to live with his mother and father and feels he has been trapped and skilled rehab. Very weak 09/13: Feels weak not out of bed yet. Dyspnea even with moving in bed. Discussed palliative care options given that he notes he feels the same as he d id previously about this though upon discussion of his medical comorbidities he expresses little insight into congestive heart failure vascular disease prior stroke. 09/14: Seen bedside able to sit up with occupational therapy and has boot on right foot but unable to fully transition and has extremely poor ADLs especially with bathing and toileting. Of note he has a fluctuant mass on his right forearm with 1 cm eschar central necrosis concerning for an abscess will order nonvascular ultrasound. Discussed overall goals of care and he has more questions about his prior strokes congestive heart failure ascites renal disease and vascular disease. Discussed with Occupational Therapy and nursing. Vitals/I&O Vitals/I&O: Vital Signs Date Time Temp Pulse Resp B/P (MAP) Pulse Ox O2 Delivery O2 Flow Rate FiO2 09/15/21 10:25 18 Room Air 09/15/21 03:39 98.2 83 127/73 (91) 96 98.2 I & O 09/14/21 09/14/21 09/15/21 15:00 23:00 07:00 Intake Total 400 ml 740 ml 240 ml Balance 400 ml 740 ml 240 ml Physical Exam General: Alert, Cooperative, moderate distress Heart: Regular rate (SR), Other (distant heart sounds) Lungs: Clear Abdomen: Normal bowel sounds, Soft, No hepatosplenomegaly, No masses, Other (Diffuse fluid wave) Extremities: Other (Left upper extremity AV fistula with good bruit. 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) Skin: Other (Lower extremity amputation site TMA looks clean) Labs Labs: Laboratory Tests Test 09/14/21 12:01 09/14/21 18:37 4/17/22 20:46 09/15/21 06:55 Glucose (Fingerstick) 158 mg/dL (70-99) 192 mg/dL (70-99) 177 mg/dL (70-99) 131 mg/dL (70-99) Test 09/15/21 07:19 White Blood Count 8.4 x10^3/uL (4.0-11.0) Red Blood Count 3.17 x10^6/uL (4.30-5.70) Hemoglobin 9.2 g/dL (13.0-17.5) Hematocrit 29.4 % (39.0-53.0) Mean Corpuscular Volume 93 fL (79-100) Mean Corpuscular Hemoglobin 29 pg (25-35) Mean Corpuscular Hemoglobin Concent 31 g/dL (31-37) Red Cell Distribution Width 20.1 % (11.5-14.5) Platelet Count 378 x10^3/uL (140-400) Sodium Level 135 mmol/L (136-145) Potassium Level 5.4 mmol/L (3.5-5.1) Chloride Level 95 mmol/L (98-107) Carbon Dioxide Level 28 mmol/L (21-32) Anion Gap 12 (6-14) Blood Urea Nitrogen 46 mg/dL (8-26) Creatinine 6.8 mg/dL (0.7-1.3) Estimated GFR (Cockcroft-Gault) 9.0 Glucose Level 130 mg/dL (70-99) Calcium Level 9.4 mg/dL (8.5-10.1) Phosphorus Level 7.7 mg/dL (2.6-4.7) Albumin 2.0 g/dL (3.4-5.0) Assessment and Plan Assessmemt and Plan Problems Medical Problems: (1) Ascites Status: Acute (2) Pleural effusion on left Status: Acute (3) Volume overload Status: Acute The plan is probable discharge back to his long-term care facility later today for now continue the following; Ascites - previously multiple paracenteses from [facility]. Consult GI for ascites etiology and continued outpatient paracentesis Shortness of breath -with cough. Chest radiograph may indicate his pleural effusions worsen contributing to shortness of breath. CT chest to better elucidate. 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 FEN - Renal dialysis PPX -[facility] FULL CODE DIspo - inpatient Comment Review of Relevant I have reviewed the following items juan a (where applicable) has been applied. Medications: Current Medications Medications (Trade) Dose Ordered Sig/Damien Route PRN Reason Start Time Stop Time Status Last Admin Dose Admin Polyethylene Glycol (miraLAX PACKET) 17 gm DAILY PO 09/14/21 13:15 09/14/21 16:35 Senna/Docusate Sodium (Senna Plus) 1 tab PRN BID PRN PO CONSTIPATION 09/14/21 13:15 09/14/21 16:35 Throat Lozenges (Cepacol Sore Throat Lozenge) 1 dannie PRN Q2HRS PRN PO SORE THROAT 09/14/21 21:45 09/15/21 06:16 Morphine Sulfate (Morphine Sulfate) 2 mg PRN Q2HR PRN IVP PAIN 09/15/21 09:00 09/15/21 10:25 Justifications for Admission Other Justification ADRIAN CAMARENA III DO Sep 15, 2021 11:17
--- NOTE | 2021-09-15 11:18 | PDOC ---
PULMONARY PROGRESS NOTES DATE: 09/15/21 TIME: 11:17 Subjective Patient feels better. Status post thoracentesis and paracentesis 09/11/2021. Vitals Vital Signs Date Time Temp Pulse Resp B/P (MAP) Pulse Ox O2 Delivery O2 Flow Rate FiO2 09/15/21 10:25 18 Room Air 09/15/21 03:39 98.2 83 127/73 (91) 96 98.2 General: Alert, No acute distress Lungs: Clear Cardiovascular: S1 Abdomen: Soft, Other (Moderately obese) Neuro Exam: Alert Extremities: Other (Venous stasis, 1+ edema, multiple skin lesions. Left BKA) Labs Laboratory Tests Test 09/13/21 11:58 09/13/21 16:40 09/13/21 20:47 09/14/21 08:28 Glucose (Fingerstick) 149 mg/dL (70-99) 153 mg/dL (70-99) 163 mg/dL (70-99) 168 mg/dL (70-99) Test 09/14/21 12:01 09/14/21 18:37 09/14/21 20:46 09/15/21 06:55 Glucose (Fingerstick) 158 mg/dL (70-99) 192 mg/dL (70-99) 177 mg/dL (70-99) 131 mg/dL (70-99) Test 09/15/21 07:19 White Blood Count 8.4 x10^3/uL (4.0-11.0) Red Blood Count 3.17 x10^6/uL (4.30-5.70) Hemoglobin 9.2 g/dL (13.0-17.5) Hematocrit 29.4 % (39.0-53.0) Mean Corpuscular Volume 93 fL (79-100) Mean Corpuscular Hemoglobin 29 pg (25-35) Mean Corpuscular Hemoglobin Concent 31 g/dL (31-37) Red Cell Distribution Width 20.1 % (11.5-14.5) Platelet Count 378 x10^3/uL (140-400) Sodium Level 135 mmol/L (136-145) Potassium Level 5.4 mmol/L (3.5-5.1) Chloride Level 95 mmol/L (98-107) Carbon Dioxide Level 28 mmol/L (21-32) Anion Gap 12 (6-14) Blood Urea Nitrogen 46 mg/dL (8-26) Creatinine 6.8 mg/dL (0.7-1.3) Estimated GFR (Cockcroft-Gault) 9.0 Glucose Level 130 mg/dL (70-99) Calcium Level 9.4 mg/dL (8.5-10.1) Phosphorus Level 7.7 mg/dL (2.6-4.7) Albumin 2.0 g/dL (3.4-5.0) Laboratory Tests Test 09/14/21 12:01 09/14/21 18:37 09/14/21 20:46 09/15/21 06:55 Glucose (Fingerstick) 158 mg/dL (70-99) 192 mg/dL (70-99) 177 mg/dL (70-99) 131 mg/dL (70-99) Test 09/15/21 07:19 White Blood Count 8.4 x10^3/uL (4.0-11.0) Red Blood Count 3.17 x10^6/uL (4.30-5.70) Hemoglobin 9.2 g/dL (13.0-17.5) Hematocrit 29.4 % (39.0-53.0) Mean Corpuscular Volume 93 fL (79-100) Mean Corpuscular Hemoglobin 29 pg (25-35) Mean Corpuscular Hemoglobin Concent 31 g/dL (31-37) Red Cell Distribution Width 20.1 % (11.5-14.5) Platelet Count 378 x10^3/uL (140-400) Sodium Level 135 mmol/L (136-145) Potassium Level 5.4 mmol/L (3.5-5.1) Chloride Level 95 mmol/L (98-107) Carbon Dioxide Level 28 mmol/L (21-32) Anion Gap 12 (6-14) Blood Urea Nitrogen 46 mg/dL (8-26) Creatinine 6.8 mg/dL (0.7-1.3) Estimated GFR (Cockcroft-Gault) 9.0 Glucose Level 130 mg/dL (70-99) Calcium Level 9.4 mg/dL (8.5-10.1) Phosphorus Level 7.7 mg/dL (2.6-4.7) Albumin 2.0 g/dL (3.4-5.0) Medications Active Scripts Medications Dose Route/Sig Max Daily Dose Days Date Category Percocet 5-325 Mg Tablet (Oxycodone/Acetaminophen) 1 Each Tablet 1 Tab PO PRN Q6HRS PRN 6 09/01/21 Rx Lantus (Insulin Glargine,Hum.rec.anlog) 100 Unit/1 Ml Vial 10 Unit SQ QHS 30 08/25/21 Rx Novolog Flexpen (Insulin Aspart) 100 Unit/1 Ml Insuln.pen 0-9 Unit SQ TIDAC 30 08/25/21 Rx Augmentin 500-125 Tablet (Amoxicillin/Potassium Clav) 1 Each Tablet 1 Tab PO DAILY 10 08/25/21 Rx Gabapentin (Gabapentin) 300 Mg Capsule 300 Mg PO QHS 30 08/25/21 Rx Vitamin C (Ascorbic Acid) 500 Mg Capsule 500 Mg PO DAILY 08/11/21 Reported Renvela (Sevelamer Carbonate) 800 Mg Tablet 1 Tab PO TID 30 08/11/21 Reported Senna Plus Tablet (Sennosides/Docusate Sodium) 1 Each Tablet 2 Tab PO BID 14 08/11/21 Reported Ondansetron Odt (Ondansetron) 4 Mg Tab.rapdis 1 Tab PO PRN Q6HRS PRN 08/11/21 Reported Multivitamins With Minerals (Multivitamin With Minerals) 1 Each Tablet 1 Tab PO DAILY 30 08/11/21 Reported Levothyroxine Sodium 100 Mcg Tablet 1 Tab PO DAILY 08/11/21 Reported Folic Acid 0.8 Mg Tablet 1 Mg PO DAILY 08/11/21 Reported Acetaminophen 325 Mg Tablet 1 Tab PO PRN Q6HRS PRN 24 08/11/21 Reported Midodrine Hcl 10 Mg Tablet 10 Mg PO TID 30 06/30/21 Rx Zoloft (Sertraline Hcl) 100 Mg Tablet 1 Tab PO DAILY 06/15/21 Reported Seroquel (Quetiapine Fumarate) 25 Mg Tablet 1 Tab PO HS 06/15/21 Reported Yajaira-Allan Rx Tablet (Vit B Cmplx 3/Fa/Vit C/Biotin) 1 Each Tablet 1 Tab PO DAILY 30 06/15/21 Reported Clopidogrel (Clopidogrel Bisulfate) 75 Mg Tablet 1 Tab PO DAILY 06/15/21 Reported Pantoprazole Sodium 40 Mg Tablet.dr 40 Mg PO BID 06/15/21 Reported Hydroxyzine Hcl 25 Mg Tablet 1 Tab PO PRN Q8HRS PRN 06/15/21 Reported Furosemide 80 Mg Tablet 1 Tab PO DAILY 06/15/21 Reported Atorvastatin Calcium 40 Mg Tablet 1 Tab PO QHS 06/15/21 Reported Aspirin Ec (Aspirin) 81 Mg Tablet.dr 1 Tab PO DAILY 06/15/21 Reported Impression . 1. Abnormal CT abdomen and pelvis with moderate left-sided pleural effusion with compressive atelectasis. This is secondary to the abdominal process, which showed a large size abdominal ascites. This is likely a transudative effusion. 2. No significant tobaccoism. 3. End-stage renal disease, on hemodialysis. 4. Large ascites. 5. Anemia. Plan . RECOMMENDATIONS: 1. Clinically better. Status post thoracentesis and paracentesis. It is a transudate based on the pleural fluid analysis. 2. Follow-up chest x-ray as needed. 3. Continue Renal recommendations with hemodialysis. 4. Follow Cardiology recommendations. 5. Follow GI recommendations. 6. We will follow along with you. OMARI COLEY MD Sep 15, 2021 11:18
--- NOTE | 2021-09-15 11:21 | PDOC ---
Date of Service: DATE: 09/15/21 TIME: 11:16 Subjective: Subjective: "Okay." Objective: Objective: D/w nurse - not GI concerns, possibly to discharge today. Stooling - soft, not diarrhea. Vital Signs: Vital Signs Date Time Temp Pulse Resp B/P (MAP) Pulse Ox O2 Delivery O2 Flow Rate FiO2 09/15/21 10:25 18 Room Air 09/15/21 03:39 98.2 83 127/73 (91) 96 98.2 Labs: Laboratory Tests Test 09/14/21 12:01 09/14/21 18:37 09/14/21 20:46 09/15/21 06:55 Glucose (Fingerstick) 158 mg/dL 192 mg/dL 177 mg/dL 131 mg/dL Test 09/15/21 07:19 White Blood Count 8.4 x10^3/uL Red Blood Count 3.17 x10^6/uL Hemoglobin 9.2 g/dL Hematocrit 29.4 % Mean Corpuscular Volume 93 fL Mean Corpuscular Hemoglobin 29 pg Mean Corpuscular Hemoglobin Concent 31 g/dL Red Cell Distribution Width 20.1 % Platelet Count 378 x10^3/uL Sodium Level 135 mmol/L Potassium Level 5.4 mmol/L Chloride Level 95 mmol/L Carbon Dioxide Level 28 mmol/L Anion Gap 12 Blood Urea Nitrogen 46 mg/dL Creatinine 6.8 mg/dL Estimated GFR (Cockcroft-Gault) 9.0 Glucose Level 130 mg/dL Calcium Level 9.4 mg/dL Phosphorus Level 7.7 mg/dL Albumin 2.0 g/dL GRAM STAIN-AER HOA Final PMNS (WBCS): NONE SEEN SQUAMOUS EPI CELL: NOT APPLICABLE NO ORGANISMS SEEN . CULTURE ANAEROBIC/AEROBIC Preliminary NO GROWTH ON 09/13/21 at 0902 NO GROWTH ON 09/14/21 at 0937 Testing performed by [address] [id number] director sales and trade marketing: Loren Underwood MD Imaging: UE US IMPRESSION: * Masslike structure in the subcutaneous soft tissues at the right distal forearm. This could be secondary to cause such as inflammation of the subcutaneous fat from causes such as cellulitis but a subcutaneous mass is not excluded on this examination and follow-up can be obtained to ensure that this appropriately resolves. No drainable fluid collection is seen. PE: GEN: appears chronically ill LUNGS: clear anteriorly HEART: RRR ABD: large, soft NEURO/PSYCH: drowsy A/P: Ascites and h/o paracentesis (7L on 09/11), h/o stercoral rectal ulcer -- Stable GI-gonzalez. Seems like plans for scheduled paracentesis as outpt. Justicifation of Admission Dx: Justifications for Admission: Justification of Admission Dx: N/A NATASHA MANZO Sep 15, 2021 11:21
--- NOTE | 2021-09-15 11:56 | NUR ---
SS following up with discharge planning. SS reviewed pt chart and discussed with pt RN. Pt is currently on room air. COVID19 negative. PT/OT recommended fpc unit. Pt is resident from [facility] in [place], ; fax [phone]. Pt has outpatient dialysis at [facility] in [place]. Discharge orders received and sent to facility. Pt will discharge today and return to [facility] in [place] via wheelchair transport. [facility] to provide transportation. Pt and pt's RN notified. Packet placed on chart.
[2021-09-15] MEDS: CLOPIDOGREL BISULFATE 75 MG TABLET PO SCH (12:17)
[2021-09-15] MEDS: SERTRALINE 50 MG TABLET. PO SCH (12:17)
[2021-09-15] MEDS: EPOETIN ALFA 20,000 UNIT/ML VIAL for DIALYSIS PTS. SQ SCH (12:17)
[2021-09-15] MEDS: FUROSEMIDE 80 MG TABLET. PO SCH (12:17)
[2021-09-15] MEDS: FOLIC ACID 1 MG TABLET. PO SCH (12:18)
[2021-09-15] MEDS: ASCORBIC ACID 500 MG TABLET PO SCH (12:18)
--- NOTE | 2021-09-15 12:32 | PDOC ---
ELMER ALEXANDER MECHANICAL TECHNICIAN 09/15/21 1232: CARDIO Progress Notes Date and Time Date of Service 09/15/21 Time of Evaluation 1230 Subjective Subjective: No Chest Pain, No shortness of breath, No Palpitations Vitals Vitals Vital Signs Date Time Temp Pulse Resp B/P (MAP) Pulse Ox O2 Delivery O2 Flow Rate FiO2 09/15/21 10:55 18 Room Air 09/15/21 03:39 98.2 83 127/73 (91) 96 98.2 Weight Weight [ ] Input and Output Intake and Output Intake and Output 09/15/21 06:59 Intake Total 1380 ml Balance 1380 ml Intake Oral 1380 ml # Bowel Movements 2 Laboratory Labs Laboratory Tests Test 09/14/21 18:37 09/14/21 20:46 09/15/21 06:55 09/15/21 07:19 Glucose (Fingerstick) 192 mg/dL (70-99) 177 mg/dL (70-99) 131 mg/dL (70-99) White Blood Count 8.4 x10^3/uL (4.0-11.0) Red Blood Count 3.17 x10^6/uL (4.30-5.70) Hemoglobin 9.2 g/dL (13.0-17.5) Hematocrit 29.4 % (39.0-53.0) Mean Corpuscular Volume 93 fL (79-100) Mean Corpuscular Hemoglobin 29 pg (25-35) Mean Corpuscular Hemoglobin Concent 31 g/dL (31-37) Red Cell Distribution Width 20.1 % (11.5-14.5) Platelet Count 378 x10^3/uL (140-400) Sodium Level 135 mmol/L (136-145) Potassium Level 5.4 mmol/L (3.5-5.1) Chloride Level 95 mmol/L (98-107) Carbon Dioxide Level 28 mmol/L (21-32) Anion Gap 12 (6-14) Blood Urea Nitrogen 46 mg/dL (8-26) Creatinine 6.8 mg/dL (0.7-1.3) Estimated GFR (Cockcroft-Gault) 9.0 Glucose Level 130 mg/dL (70-99) Calcium Level 9.4 mg/dL (8.5-10.1) Phosphorus Level 7.7 mg/dL (2.6-4.7) Albumin 2.0 g/dL (3.4-5.0) Test 09/15/21 12:13 Glucose (Fingerstick) 110 mg/dL (70-99) Microbiology Micro Microbiology 09/11/21 Gram Stain - Final, Resulted 09/11/21 Aerobic and Anaerobic Culture - Preliminary, Resulted Review of Systems Constitutional: yes: alert, oriented Ears/Nose/Throat: Yes: no symptom reported Eyes: Yes: no symptom reported Pulmonary: Yes dyspnea Cardiovascular: Yes no symptom reported Gastrointestional: Yes: constipation Genitourinary: Yes: no symptom reported Musculoskeletal: Yes: no symptom reported Skin: Yes no symptom reported Psychiatric/Neurological: Yes: no symptom reported Physical Exam HEENT: Neck Supple W Full Motion Chest: Symmetric LUNGS: Other (diminished bases) Heart: S1S2, RRR Abdomen: Soft N/T Extremities: Other (left BKA, right TMA) Neurology: alert, follow commands Assessment Assessment 1. Abdominal pain with large ascites, pleural effusion: s/p paracentesis and thoracentesis 2. NSTEMI: mild troponin elevation, demand mediated type 2 3. Coronary artery disease s/p Cardiac catheterization in January 2021 showed patent RCA stent. He is presently chest pain-free. 4. SSS s/p leadless pacemaker implantation, stable 5. End-stage renal disease on hemodialysis per nephrology team 6. Acute on chronic systolic/ diastolic heart failure; limited echo with LVEF 35-40% 7. PAD s/p left BKA and and more recent right transmetatarsal amputation 8. Hypertension: On midodrine therapy due to Low BP in the past and due to a scites. 9. Hyperlipidemia: Continue statins 10. Hypothyroidism: on replacement 11. DM2: Treat per IM 12. h/o CVA 13. Anemia of chronic disease; hgb stable Recommendations Continue current secondary prevention measures including Plavix and statin t herapy No ASA with anemia He is unable to tolerate usual goal directed HF therapies due to renal failure/hyperkalemia and hypotension issues Continue midodrine Fluid off loading per HD Supportive care Justicifation of Admission Dx: Justifications for Admission: Justification of Admission Dx: N/A OMER ORTIZ MD 09/15/211: CARDIO Progress Notes Assessment Assessment Patient seen and examined. Agree with DRIVER/REFUSE COLLECTOR's assessment and plan NSTEMI prob demand ischemia CAD clinically stable CAD and PAD clinically stable SSS s/p PPM stable Continue HD per nephrology ELMER ALEXANDER APRN Sep 15, 2021 12:32 OMER ORTIZ MD Sep 15, 2021 21:11
--- NOTE | 2021-09-15 14:36 | PDOC ---
DATE OF SERVICE DATE: 09/15/21 TIME: 14:29 SUBJECTIVE ROS seen during Dialysis, No complaints OBJECTIVE Vital Signs Vital Signs Date Time Temp Pulse Resp B/P (MAP) Pulse Ox O2 Delivery O2 Flow Rate FiO2 09/15/21 10:55 18 Room Air 09/15/21 03:39 98.2 83 127/73 (91) 96 98.2 I & 0 Intake and Output 09/15/21 07:00 Intake Total 1380 ml Balance 1380 ml Intake Oral 1380 ml # Bowel Movements 2 PHYSICAL EXAM Physical Exam khalif WHITE Head is normocephalic and atraumatic, om moist Neck is supple Lungs diminished breath sounds to all webster, Non labored CV normal S1 and S2 without rubs or gallops Abdomen is soft, nontender Skin is warm and dry Ext without cyanosis, clubbing or edema. left below-knee amputation. Rt TMA Psych appropriate mood and affect and is alert. Neuro Grossly normal No Rodriguez , No CVAor sp tenderness DIAGNOSIS/ASSESSMENT Assessment & Plan ESRD on HD MWF , on Dialysis since 2017 @ [facility]- Under Dr Godoy's care( [facility]) . Seen on dialysis , tolerating well. Continue as ordered. José Antonio CANO Moderate left-sided pleural effusion with compressive atelectasis. Status post thoracentesis on 09/11 It is a transudate based on the pleural fluid analysis. Ascites and nonalcoholic steatohepatitis - S/P Paracentesis 09/11 - 7 lts drained. . He was getting scheduled paracentesis as OP . Defer to GI Peripheral vascular disease - s/p left BKA and status post right transmetatarsal amputation on 08/22/2021 Anemia- Has Recd PRBC during previous admissions Congestive heart failure- Appears compensated Recent Hx of Pneumonia CAD: reported 2 stents placed about a month ago at [facility] Hx of Hypertension- low BP's was prescribed Midodrine to 10 mg TID at recent hospitalization Poorly controlled type 2 diabetes mellitus, diabetic retinopathy. Hx of DVT Hx of Covid-19: Not Vaccinated . Currently PUI Hx of CVA: MRI in 2016 Scattered tiny foci of restricted diffusion in different vascular territories suggesting embolic acute infarcts. COMMENT/RELEVANT DATA Meds Current Medications Medications (Trade) Dose Ordered Sig/Damien Start Time Stop Time Status Last Admin Dose Admin Albumin Human 100 ml @ 100 mls/hr 1X ONCE 09/11/21 15:45 09/11/21 16:44 DC 09/11/21 15:45 100 MLS/HR Ascorbic Acid (Vitamin C) 500 mg DAILY 09/12/21 09:00 09/15/21 12:18 500 MG Aspirin (Ecotrin) 81 mg DAILY 09/11/21 12:00 09/13/21 11:00 DC 09/13/21 09:12 81 MG Atorvastatin Calcium (Lipitor) 40 mg QHS 09/11/21 21:00 09/14/21 20:50 40 MG Cetirizine HCl (ZyrTEC) 10 mg PRN DAILY PRN 09/10/21 23:00 Clopidogrel Bisulfate (Plavix) 75 mg DAILY 09/12/21 09:00 09/15/21 12:17 75 MG Dextrose (Dextrose 50%-Water Syringe) 12.5 gm PRN Q15MIN PRN 09/12/21 08:00 Dextrose (Iv Dextrose 5%) 250 ml PRN Q15MIN PRN 09/12/21 08:00 Epoetin Kory (PROCRIT for DIALYSIS PTS) 20,000 unit 3X/WEEK 09/12/21 09:00 09/15/21 12:17 20,000 UNIT Fentanyl Citrate (Fentanyl 2ml Vial) 25 mcg PRN Q3HRS PRN 09/12/21 10:30 09/15/21 08:50 DC 09/15/21 08:15 25 MCG Folic Acid (Folic Acid) 1 mg DAILY 09/12/21 09:00 09/15/21 12:18 1 MG Furosemide (Lasix) 80 mg DAILY 09/12/21 09:00 09/15/21 12:17 80 MG Gabapentin (Neurontin) 300 mg QHS 09/12/21 21:00 09/14/21 20:50 300 MG Hydroxyzine HCl (Atarax) 25 mg PRN Q8HRS PRN 09/11/21 00:45 09/14/21 21:00 25 MG Info (PHARMACY MONITORING -- do not chart) 1 each PRN DAILY PRN 09/15/21 07:45 Insulin Glargine (Lantus Syringe) 8 unit QHS 09/12/21 21:00 09/14/21 20:55 8 UNIT Insulin Human Lispro (HumaLOG) 0-7 UNITS TIDWMEALS 09/12/21 08:00 09/14/21 18:41 3 UNITS Levothyroxine Sodium (Synthroid) 100 mcg DAILY07 09/12/21 09:00 09/15/21 06:13 100 MCG Midodrine (Proamatine) 10 mg PRN TID PRN 09/14/21 13:15 Morphine Sulfate (Morphine Sulfate) 2 mg PRN Q2HR PRN 09/15/21 09:00 09/15/21 10:25 2 MG Ondansetron HCl (Zofran) 4 mg PRN Q4HRS PRN 09/12/21 08:00 Pantoprazole Sodium (Protonix) 40 mg BIDAC 09/12/21 09:00 09/15/21 06:13 40 MG Pharmacy Consult (C.diff Med Screen By Rx) 1 each 1X ONCE 09/11/21 04:45 09/11/21 04:46 Cancel Polyethylene Glycol (miraLAX PACKET) 17 gm DAILY 09/14/21 13:15 09/14/21 16:35 17 GM Psyllium Hydrophilic Mucilloid (Metamucil Fiber Packet) 1 pkt QHS 09/14/21 21:00 Quetiapine Fumarate (SEROquel) 25 mg HS 09/12/21 21:00 09/14/21 20:50 25 MG Senna/Docusate Sodium (Senna Plus) 1 tab PRN BID PRN 09/14/21 13:15 09/14/21 16:35 1 TAB Sertraline HCl (Zoloft) 100 mg DAILY 09/12/21 09:00 09/15/21 12:17 100 MG Sevelamer Carbonate (Renvela) 800 mg TIDWMEALS 09/12/21 09:00 09/15/21 12:23 800 MG Sodium Chloride 1,000 ml @ 400 mls/hr Q2H30M PRN 09/15/21 07:45 09/15/21 19:44 Throat Lozenges (Cepacol Sore Throat Lozenge) 1 alcides PRN Q2HRS PRN 09/14/21 21:45 09/15/21 06:16 1 ALCIDES Tramadol HCl (Ultram) 50 mg PRN Q6HRS PRN 09/12/21 10:30 09/14/21 21:01 50 MG Lab Laboratory Tests Test 09/14/21 18:37 09/14/21 20:46 09/15/21 06:55 09/15/21 07:19 Glucose (Fingerstick) 192 mg/dL (70-99) 177 mg/dL (70-99) 131 mg/dL (70-99) White Blood Count 8.4 x10^3/uL (4.0-11.0) Red Blood Count 3.17 x10^6/uL (4.30-5.70) Hemoglobin 9.2 g/dL (13.0-17.5) Hematocrit 29.4 % (39.0-53.0) Mean Corpuscular Volume 93 fL (79-100) Mean Corpuscular Hemoglobin 29 pg (25-35) Mean Corpuscular Hemoglobin Concent 31 g/dL (31-37) Red Cell Distribution Width 20.1 % (11.5-14.5) Platelet Count 378 x10^3/uL (140-400) Sodium Level 135 mmol/L (136-145) Potassium Level 5.4 mmol/L (3.5-5.1) Chloride Level 95 mmol/L (98-107) Carbon Dioxide Level 28 mmol/L (21-32) Anion Gap 12 (6-14) Blood Urea Nitrogen 46 mg/dL (8-26) Creatinine 6.8 mg/dL (0.7-1.3) Estimated GFR (Cockcroft-Gault) 9.0 Glucose Level 130 mg/dL (70-99) Calcium Level 9.4 mg/dL (8.5-10.1) Phosphorus Level 7.7 mg/dL (2.6-4.7) Albumin 2.0 g/dL (3.4-5.0) Test 09/15/21 12:13 Glucose (Fingerstick) 110 mg/dL (70-99) Results All relevant outside records, renal labs, imaging studies, telemetry/EKG's were reviewed. Justicifation of Admission Dx: Justifications for Admission: Justification of Admission Dx: N/A CHANI DANIELLE MD Sep 15, 2021 14:36
[2021-09-15] MEDS: traMADol 50 MG TABLET PO PRN (15:11)
--- NOTE | 2021-09-15 15:59 | NUR ---
Discharge Note: ADRIANA GARLAND Discharge instructions and discharge home medications reviewed with Other facility and a copy given. All questions have been answered and understanding verbalized. The following instructions and handouts were given: follow-up, activity, medication reconciliation, and wound care. Discontinued lines and drains:IV discontinued from right upper arm, wound dressings changed and pictured. Patient discharged to [facility] via [facility], report called to [facility].
--- NOTE | 2021-09-15 16:07 | NUR ---
Upon transferring to wheelchair for discharge it was noted a small amount of blood on the floor, upon examination it was coming from amputation site on right foot. Patient denied it getting hit, he states it was probably from putting weight on his foot, which very minimal weight was applied to foot, as this RN and COMPREHENSIVE ADVISOR fully transferred patient from bed to . This RN was able to get bleeding stopped with pressure for a few seconds, gauze 4x4's and kerlex wrapped around to keep pressure. No further blood noted as patient was taken out by his transportation. Nurse at facility notified during report of this.
--- NOTE | 2021-09-15 21:22 | DS ---
DATE OF DISCHARGE: 09/15/2021 ADMITTING DIAGNOSES: 1. Ascites. 2. End-stage renal disease, on dialysis. 3. Shortness of breath with effusions. 4. Chest discomfort. 5. Diabetic toe ulcer. 6. Peripheral vascular disease. 7. Diabetes. 8. Stage 2 sacral decubitus ulcer. 9. History of stroke. 10. Hyperlipidemia. 11. Congestive heart failure. 12. Malnutrition. DISCHARGE DIAGNOSES: 1. Resolving ascites. 2. End-stage renal disease, on dialysis. 3. Multiple comorbidities. Please see above. CONSULTS: Cardiology, Nephrology, Pulmonary Medicine and GI. HOSPITAL COURSE: The patient is a pleasant middle-aged male who is noncompliant. He lives in a [place] [facility]. He is on dialysis, but he refused to go to dialysis. Basically, he was admitted with volume overload and ascites. The above consults were obtained. We have dialyzed him several times. Today, I saw and examined him. He is doing well and wants to go back to his facility. We plan to discharge. DISPOSITION: Back to his long-term care facility. ACTIVITY: As tolerated. DIET: Renal. DISCHARGE MEDICATIONS: Please see the MRAD. P.r.n. Tylenol, Augmentin 875 b.i.d., vitamin C, aspirin 81 a day, atorvastatin 40 a day, Plavix 75 a day, folic acid 1 a day, Lasix 80 a day, gabapentin 300 at bedtime, hydroxyzine 25 q.8, sliding scale insulin, Lantus insulin 10 at bedtime, Synthroid 100 a day, midodrine 10 t.i.d., vitamins, p.r.n. Zofran, p.r.n. Percocet, Protonix 40 a day, Seroquel 25 a day, senna, Zoloft 100 a day, Renvela, vitamin B. TOTAL TIME: 34 minutes. JESS/GORDY DR: JESS/abel TID: [id number]
== END 2021-09-15 16:14 | DRG 280 ==
LOC: ER 14:53 → 5 NORTH 20:06
PROVIDERS: ADMIT Internal Medicine; ATTEND Internal Medicine
PROC: 5A1D70Z Performance of Urinary Filtration, Intermittent, Less than 6 Hours Per Day (ICD-10-PCS; 2021-09-11)
PROC: 0W9B3ZZ Drainage of Left Pleural Cavity, Percutaneous Approach (ICD-10-PCS; principal; 2021-09-12)
PROC: 0W9G3ZZ Drainage of Peritoneal Cavity, Percutaneous Approach (ICD-10-PCS; 2021-09-12)
PROC: 5A1D70Z Performance of Urinary Filtration, Intermittent, Less than 6 Hours Per Day (ICD-10-PCS; 2021-09-12)
PROC: 5A1D70Z Performance of Urinary Filtration, Intermittent, Less than 6 Hours Per Day (ICD-10-PCS; 2021-09-15)
DX: I13.2 Hypertensive heart and chronic kidney disease with heart failure and with stage 5 chronic kidney disease, or end stage renal disease (principal); L89.153 Pressure ulcer of sacral region, stage 3; I21.A1 Myocardial infarction type 2; N18.6 End stage renal disease; E43 Unspecified severe protein-calorie malnutrition; I50.33 Acute on chronic diastolic (congestive) heart failure; R18.8 Other ascites; E11.52 Type 2 diabetes mellitus with diabetic peripheral angiopathy with gangrene; J96.11 Chronic respiratory failure with hypoxia; J91.8 Pleural effusion in other conditions classified elsewhere; J84.9 Interstitial pulmonary disease, unspecified; J98.11 Atelectasis; E87.70 Fluid overload, unspecified; Z99.2 Dependence on renal dialysis; D63.8 Anemia in other chronic diseases classified elsewhere; E03.9 Hypothyroidism, unspecified; E04.2 Nontoxic multinodular goiter; E11.22 Type 2 diabetes mellitus with diabetic chronic kidney disease; E11.319 Type 2 diabetes mellitus with unspecified diabetic retinopathy without macular edema; E11.42 Type 2 diabetes mellitus with diabetic polyneuropathy; E11.43 Type 2 diabetes mellitus with diabetic autonomic (poly)neuropathy; E11.51 Type 2 diabetes mellitus with diabetic peripheral angiopathy without gangrene; E11.621 Type 2 diabetes mellitus with foot ulcer; E78.00 Pure hypercholesterolemia, unspecified; E78.5 Hyperlipidemia, unspecified; I25.10 Atherosclerotic heart disease of native coronary artery without angina pectoris; I25.2 Old myocardial infarction; I27.81 Cor pulmonale (chronic); J45.909 Unspecified asthma, uncomplicated; K57.90 Diverticulosis of intestine, part unspecified, without perforation or abscess without bleeding; L89.152 Pressure ulcer of sacral region, stage 2; L97.509 Non-pressure chronic ulcer of other part of unspecified foot with unspecified severity; Z20.822 Contact with and (suspected) exposure to COVID-19; Z86.16 Personal history of COVID-19; Z87.891 Personal history of nicotine dependence; Z89.512 Acquired absence of left leg below knee; Z91.19 Patient's noncompliance with other medical treatment and regimen; Z95.0 Presence of cardiac pacemaker; Z95.5 Presence of coronary angioplasty implant and graft; E21.3 Hyperparathyroidism, unspecified; F32.A Depression, unspecified; G47.33 Obstructive sleep apnea (adult) (pediatric); K21.9 Gastro-esophageal reflux disease without esophagitis; I69.344 Monoplegia of lower limb following cerebral infarction affecting left non-dominant side; I69.398 Other sequelae of cerebral infarction; E87.5 Hyperkalemia; E11.65 Type 2 diabetes mellitus with hyperglycemia; Z86.718 Personal history of other venous thrombosis and embolism; Z79.01 Long term (current) use of anticoagulants; Z87.01 Personal history of pneumonia (recurrent); K75.81 Nonalcoholic steatohepatitis (NASH)
CPT/HCPCS: 32555; 36415; 49083; 71045; 74176; 76882; 80048; 80053; 80069; 82962; 83615; 83690; 83735; 83880; 84157; 84443; 84484; 85025; 85027; 85610; 87075; 87426; 93005; 93308; 96374; 96375; 96376; J1815; J2270; J2405; J3010; P9046; U0003; 97530-GP; 97535-GO; 99285-25; G0378; Q4081